=== PATIENT | female | born 1945 | race Caucasian/White ===

== ENCOUNTER 2018-08-11 09:29 | Outpatient (REF) | payer MEDICARE, MEDICAID, SELFPAY ==
[2018-08-11 13:17] LABS: ALT 41 U/L (12-78); AST 25 U/L (15-37); Albumin 3.9 g/dL (3.4-5.0); Alkaline Phosphatase 120 U/L (46-116); Anion Gap 9.6 mmol/L (3-11); BUN 31 mg/dL (7-18); Bilirubin, Total 0.2 mg/dL (0.2-1.0); CO2 27.4 mmol/L (21.0-32.0); CREATININE 1.13 mg/dL (0.55-1.02); Calcium 9.2 mg/dL (8.5-10.1); Chloride 103 mmol/L (98-107); Cholesterol 155 mg/dL (50-200); Estimated GFR 47.47 (mL/min/1.73m2); Glucose 72 mg/dL (70-100); HDL Cholesterol 52 mg/dL (40-60); LDL CHOLESTEROL 79 mg/dL (<100); Potassium 4.8 mmol/L (3.5-5.1); Sodium 140 mmol/L (136-145); TSH (W/Ref FT4) 0.73 uIU/mL (0.358-3.74); Total Protein 7.5 g/dL (6.4-8.2); Triglyceride 146 mg/dL (30-150)
[2018-08-11 13:43] LABS: Microalb ug/mg Crea 4.6 ug/mg Cr
== END 2018-08-11 09:49 ==
LOC: NCHCN 09:29
PROVIDERS: PCP Nurse Practitioner; Visit Provider Nurse Practitioner
DX: E11.9 Type 2 diabetes mellitus without complications (principal); I10 Essential (primary) hypertension; E78.5 Hyperlipidemia, unspecified; E03.9 Hypothyroidism, unspecified
CPT/HCPCS: 80053; 80061; 83721; 82043; 82570; 84443

== ENCOUNTER 2018-10-31 00:31 | Outpatient (CLI) | payer MEDICARE, MEDICAID, SELFPAY ==
--- NOTE | 2018-10-31 10:35 | DI.CTLCSR_ITS ---
SYMPTOM/DIAGNOSIS: Z87.891, PERSONAL H/O NICOTINE DEPENDENCE CHEST CT FOR LUNG CANCER SCREENING: Comparison is made with 05/23/15. The low dose screening protocol was utilized. There is mild centrilobular emphysema as well as paraseptal emphysema seen greatest in the upper lobes. There is scarring versus atelectasis at the lung bases. The heart size is normal. Coronary artery calcifications are seen. There are mild calcifications of the aorta. No pulmonary nodules, infiltrates or effusions are seen. No suspicious bony abnormalities are identified. The visualized portions of the upper abdomen are grossly unremarkable. IMPRESSION: Lung Rads, category 1. Annual low dose screening CT is recommended. Mild to moderate centrilobular and paraseptal emphysema is again noted. Lung-RAD Category: Lung RADS Category 1- Negative
== END 2018-10-31 00:51 ==
PROVIDERS: PCP Nurse Practitioner; Visit Provider Internal Medicine
DX: Z12.2 Encounter for screening for malignant neoplasm of respiratory organs (principal); Z87.891 Personal history of nicotine dependence; J43.9 Emphysema, unspecified
CPT/HCPCS: G0297

== ENCOUNTER 2019-03-24 11:37 | Outpatient (CLI) | payer OTHER, SELFPAY ==
--- NOTE | 2019-03-24 13:23 | DI.RAD_ITS ---
SYMPTOMS/DIAGNOSIS: RIGHT LEG PAIN, M79.604, S/P FALL DOWN 1 STEP 2 WEEKS AGO WITH SIGNIFICANT PAIN, SWELLING AND BRUISING, RIGHT LOWER EXTREMITY RIGHT TIB/FIB: No acute or healing fracture or dislocation is seen. No suspicious lytic or sclerotic lesion is present. There does appear to be edema in the soft tissues in the right lower leg. No radiopaque foreign bodies are seen in the soft tissues. Degenerative changes are seen about the knee. IMPRESSION: No acute or healing fracture or dislocation.
== END 2019-03-24 11:57 ==
PROVIDERS: PCP Nurse Practitioner; Visit Provider Nurse Practitioner
DX: M79.604 Pain in right leg (principal); R22.41 Localized swelling, mass and lump, right lower limb; M79.89 Other specified soft tissue disorders; W19.XXXA Unspecified fall, initial encounter
CPT/HCPCS: 73590

== ENCOUNTER 2019-03-31 11:44 | Outpatient (REF) | payer OTHER, MEDICAID, SELFPAY ==
[2019-03-31 19:36] LABS: ALT 27 U/L (12-78); AST 21 U/L (15-37); Albumin 3.7 g/dL (3.4-5.0); Alkaline Phosphatase 115 U/L (46-116); Anion Gap 9.7 mmol/L (3-11); BUN 32 mg/dL (7-18); Bilirubin, Total 0.3 mg/dL (0.2-1.0); CO2 25.3 mmol/L (21.0-32.0); CREATININE 1.14 mg/dL (0.55-1.02); Chloride 105 mmol/L (98-107); Cholesterol 175 mg/dL (50-200); Estimated GFR 46.85 (mL/min/1.73m2); Glucose 65 mg/dL (70-100); HDL Cholesterol 56 mg/dL (40-60); LDL CHOLESTEROL 96 mg/dL (<100); Potassium 5.2 mmol/L (3.5-5.1); Sodium 140 mmol/L (136-145); Total Protein 7.1 g/dL (6.4-8.2); Triglyceride 109 mg/dL (30-150)
== END 2019-03-31 12:04 ==
LOC: NCHCN 11:44
PROVIDERS: PCP Nurse Practitioner; Visit Provider Nurse Practitioner
DX: E03.9 Hypothyroidism, unspecified (principal); I10 Essential (primary) hypertension; E78.5 Hyperlipidemia, unspecified
CPT/HCPCS: 80053; 80061; 83721; 84443

== ENCOUNTER 2019-04-21 09:33 | Outpatient (REF) | payer OTHER, MEDICAID, SELFPAY ==
[2019-04-21 13:58] LABS: Potassium 4.7 mmol/L (3.5-5.1)
== END 2019-04-21 09:53 ==
LOC: NCHCN 09:33
PROVIDERS: PCP Nurse Practitioner; Visit Provider Nurse Practitioner
DX: N18.3 Chronic kidney disease, stage 3 (moderate) (principal)
CPT/HCPCS: 84132

== ENCOUNTER 2019-11-25 01:09 | Outpatient (CLI) | payer OTHER, MEDICAID, SELFPAY ==
--- NOTE | 2019-11-25 13:10 | DI.CTLCSR_ITS ---
EXAM: CT CHEST LUNG CANCER SCREEN CLINICAL HISTORY: PERSONAL H/O NICOTINE DEPENDENCE, Z87.891 TECHNIQUE: Low-dose screening technique. FINDINGS: No pulmonary nodules are identified. There is no adenopathy, pleural or pericardial effusions. The re is mild atelectasis versus scarring seen at the lung bases. Coronary artery calcifications and mi ld aortic calcifications are again noted. Visualized portions of the upper abdomen are unremarkable. IMPRESSION: Lung rads category 1, negative. Annual low-dose screening CT is recommended. Lung RADS Cat 1 - Negative: No nodules and definitely benign nodules
== END 2019-11-25 01:29 ==
PROVIDERS: PCP Nurse Practitioner; Visit Provider Internal Medicine
DX: Z12.2 Encounter for screening for malignant neoplasm of respiratory organs (principal); Z87.891 Personal history of nicotine dependence; R91.8 Other nonspecific abnormal finding of lung field
CPT/HCPCS: G0297

== ENCOUNTER 2020-05-10 12:39 | Outpatient (REF) | payer OTHER, MEDICAID, SELFPAY ==
[2020-05-10 16:13] LABS: Hemoglobin A1C 5.9 % (3.8-5.6)
[2020-05-10 16:44] LABS: ALT 25 U/L (14-59); AST 18 U/L (15-37); Albumin 3.6 g/dL (3.4-5.0); Alkaline Phosphatase 93 U/L (46-116); Anion Gap 15.9 mmol/L (3-11); BUN 36 mg/dL (7-18); Bilirubin, Total 0.3 mg/dL (0.2-1.0); CO2 19.1 mmol/L (21.0-32.0); CREATININE 1.59 mg/dL (0.55-1.02); Calculated LDL 122 mg/dL (<100); Chloride 106 mmol/L (98-107); Cholesterol 204 mg/dL (<200); Estimated GFR 31.83 (mL/min/1.73m2); Glucose 159 mg/dL (74-106); HDL Cholesterol 43 mg/dL (40-60); Potassium 4.4 mmol/L (3.5-5.1); Sodium 141 mmol/L (136-145); TSH (W/Ref FT4) 1.82 uIU/mL (0.36-3.74); Total Protein 7.2 g/dL (6.4-8.2); Triglyceride 198 mg/dL (<150)
== END 2020-05-10 12:59 ==
LOC: NCHCN 12:39
PROVIDERS: PCP Nurse Practitioner; Visit Provider Nurse Practitioner
DX: I10 Essential (primary) hypertension (principal); E78.5 Hyperlipidemia, unspecified; E03.9 Hypothyroidism, unspecified; N18.3 Chronic kidney disease, stage 3 (moderate); R73.09 Other abnormal glucose
CPT/HCPCS: 80053; 80061; 83036; 84443

== ENCOUNTER 2020-05-12 01:12 | Outpatient (CLI) | payer OTHER, MEDICAID, SELFPAY ==
--- NOTE | 2020-05-12 10:49 | DI.RAD_ITS ---
EXAM: XR KNEE RT 3V AP,LAT,ROSEANN CLINICAL HISTORY: RT KNEE JOINT PAIN > 3 MOS, M25.561 TECHNIQUE: COMPARISON: CR RIGHT KNEE 3 VIEWS from 03/04/2013 FINDINGS: Four views were obtained. There are probable multiple loose joint bodies. There is thinning of the cartilaginous joint spaces of medial and lateral tibiofemoral joints and probably of the patellofemor al joint as well. Very prominent marginal osteophytes noted at all 3 joints of the and there is very prominent superior marginal osteophyte of the patella. IMPRESSION: Severe degenerative changes involving all 3 joints of the knee, probable multiple loose joint bodies.
== END 2020-05-12 01:32 ==
PROVIDERS: PCP Nurse Practitioner; Visit Provider Nurse Practitioner
DX: M25.561 Pain in right knee (principal); M17.11 Unilateral primary osteoarthritis, right knee; M23.42 Loose body in knee, left knee
CPT/HCPCS: 73562

== ENCOUNTER → 2020-06-14 10:05 | Outpatient (BNVA) | payer OTHER, MEDICAID, SELFPAY | PROVIDERS: PCP Nurse Practitioner; Referring Provider Nurse Practitioner; Visit Provider Orthopaedic Surgery | DX: M17.11 Unilateral primary osteoarthritis, right knee (principal); M25.561 Pain in right knee | CPT/HCPCS: 99201 ==

== ENCOUNTER → 2020-07-26 09:08 | Outpatient (BNVA) | payer OTHER, MEDICAID, SELFPAY | PROVIDERS: PCP Nurse Practitioner; Referring Provider Nurse Practitioner; Visit Provider Orthopaedic Surgery | DX: M17.11 Unilateral primary osteoarthritis, right knee (principal) | CPT/HCPCS: 99213 ==

== ENCOUNTER 2020-08-31 11:04 | Outpatient (CLI) | payer OTHER, MEDICAID, SELFPAY ==
--- NOTE | 2020-08-31 14:09 | DI.RAD_ITS ---
EXAM: XR SHOULDER RT COMPLETE 2+V CLINICAL HISTORY: RT SHOULDER JT PAIN, M25.511, S/P CONTUSION 2 WEEKS AGO. TECHNIQUE: 2D digital imaging was performed. COMPARISON: No exams were available for comparison FINDINGS: BONES: No acute or healing fracture is present. No bony destructive lesion is seen. JOINTS: No dislocation present. Degenerative changes are seen at the acromioclavicular joint. SOFT TISSUE: Normal. IMPRESSION: No acute or healing fracture or dislocation. DATA REPOSITORY: RADIATION DOSE DELIVERED:
== END 2020-08-31 11:24 ==
PROVIDERS: PCP Nurse Practitioner; Visit Provider Physician Assistant
DX: M25.511 Pain in right shoulder (principal); M19.011 Primary osteoarthritis, right shoulder
CPT/HCPCS: 73030

== ENCOUNTER 2020-09-22 18:49 | Emergency (ER) | payer OTHER, MEDICAID, SELFPAY ==
[2020-09-22 18:51] VITALS: BP 139/90; PULSE 87; RESP 14; TEMP 36.6; O2SAT 94
--- NOTE | 2020-09-22 19:00 | ED.GENADUL_ITS ---
Discharge Plan Disposition Patient Disposition: HOME Condition: Stable Discharge Details Clinical Impression: Urinary tract infection Primary Care Provider: Kathleen Azevedo ED Provider: Roopa Delgado Home Meds and New Rx's Prescriptions: New sulfamethoxazole-trimethoprim [Bactrim DS] 800-160 mg tablet 1 tab PO BID 7 Days Qty: 14 RF: 0 Continued meloxicam 15 mg tablet 15 mg PO DAILY RF: 0 amlodipine 2.5 mg tablet 2.5 mg PO DAILY RF: 0 aspirin 81 mg tablet,delayed release (DR/EC) 81 mg PO DAILY RF: 0 levothyroxine 125 mcg tablet 125 mcg PO DAILY RF: 0 lisinopril 30 mg tablet 30 mg PO DAILY RF: 0 pravastatin 20 mg tablet 20 mg PO DAILY RF: 0 Trelegy Ellipta 100-62.5-25 mcg blister with device 1 inh INHALATION DAILY RF: 0 Discharge Instructions Instructions: Urinary Tract Infection in Women (ED), Nonpsychiatric Hallucinations (ED) Additional Instructions: Follow up with primary care provider in 3-5 days. Return to ED sooner if any worsening or concerns. Increase oral fluids. Try decreasing your Tylenol dose due to elevated liver enzymes. Take antibiotic as prescribed. Follow-up as instructed by [facility]. Return to the ER for any thoughts of harming yourself or others. Referrals: Kathleen Azevedo [Primary Care Provider] - Medical Decision Making 1909: Patient placed in paper scrubs, she is in line of sight of the nurses station, patient was allowed to keep her cell phone and wallet as requested. At this time medical work-up ordered including CBC, CMP, urinalysis nebulizer treatments and chest x-ray. Mental health evaluation ordered and care management Daniela aware of patient status at this time. Imaging protocol: XR of the chest Views: 2 views. COMPARISON: CT CHEST LUNG CANCER SCREEN 11/25/2019 13:07 FINDINGS: Lungs: Mild hyperinflation without airspace consolidation. No significant interstitial disease for the degree of inflation. Pleural space: No pleural effusion. No pneumothorax. Heart/Mediastinum: No cardiomegaly. Bones/joints: Degenerative changes in the spine. No displaced fracture. IMPRESSION: Mild hyperinflation without airspace consolidation. The 2019: Patient received a nebulizer at the time, ambulatory with assistance up to the bathroom for urine sample. Spoke with Beverly with [facility] services regarding patient and request for mental health evaluation, verbalized understanding . We will do a mental health eval via telehealth. 2121: Mental health evaluation is complete at this time per [facility] services patient is to be discharged home, they will call her and check up on patient tomorrow. Patient does have a friend that can also check on her, urinalysis shows positive nitrites and trace leukocytes, 10-20 WBCs, many bacteria culture is pending at this time. We will treat with Bactrim for possible urinary tract infection. Patient is allergic to penicillins, Liver enzymes are also elevated AST of 189, ALT 145, alk phos 185 patient states that she takes 2 regular strength Tylenol in the morning and 2 regular strength Tylenol in the evening for arthritis. Will discuss safe Tylenol dosages. Patient discharged home with [facility] for ride. Patient remained hemodynamically sta ble throughout stay. HPI General Mode of arrival: EMS . Date/Time Provider Initiated Documentation: 09/22/20 19:09 . Limitations to Documentation: no limitations . Information obtained by: patient and EMS . HPI Narrative: 75-year-old female presents to the ED via EMS with chief complaint of hearing voices. Patient states that she is heard a female voice calling her name over and over and over again since yesterday afternoon. She denies any suicidal ideation, homicidal ideation or any other complaints. She states that she does have a cold. She is having audible expiratory inspiratory wheezes upon arrival EMS states that they offered a neb which patient refused. She denies any recent changes in her medications any pain, nausea vomiting diarrhea or fever. She does have a history of COPD, hypertension, hypothyroid, patient is a current smoker. Related Data Home Medications Medication Instructions Recorded Confirmed Trelegy Ellipta 1 inh INHALATION DAILY 09/22/20 09/22/20 amlodipine 2.5 mg PO DAILY 09/22/20 09/22/20 aspirin 81 mg PO DAILY 09/22/20 09/22/20 levothyroxine 125 mcg PO DAILY 09/22/20 09/22/20 lisinopril 30 mg PO DAILY 09/22/20 09/22/20 meloxicam 15 mg PO DAILY 09/22/20 09/22/20 pravastatin 20 mg PO DAILY 09/22/20 09/22/20 sulfamethoxazole-trimethoprim 1 tab PO BID 7 Days #14 tab 09/22/20 [Bactrim DS] Previous Rx's Medication Instructions Recorded sulfamethoxazole-trimethoprim 1 tab PO BID 7 Days #14 tab 09/22/20 [Bactrim DS] Allergies Allergy/AdvReac Type Severity Reaction Status Date / Time Penicillins Allergy Intermediate Swelling/Ed Verified 07/26/20 09:12 demond Bees Allergy Uncoded 07/26/20 09:12 General Stated Complaint: PsychEval KAYA: 2 Review of Systems Narrative: Constitutional: Negative for weight loss, alert and oriented, well groomed, normal body habitus, appears comfortable. HEENT: Denies trauma, headaches, blurry vision, nasal discharge, sore throat, trouble swallowing. Chest: Denies chest pain, palpitations, irregular rhythm, hypertension. Respiratory: Denies Shortness of breath, hemoptysis. Reports cough with productive clear sputum. GI: Denies abdominal pain, nausea, vomiting, diarrhea, constipation. : Denies dysuria, hematuria, flank pain, rectal bleeding. Neuro: Denies dizziness, blurry vision, weakness, syncope, headache or facial numbness. Hematologic: Denies easy bruising, intolerance to heat or cold, hair loss. Psychiatric: Complaining of hearing voices repetitive, urinating, denies any suicidal ideation or homicidal ideation, [facility] Social History Smoking/Tobacco Use Status: Current every day Smoking risk assessment performed?: Yes Alcohol Intake: never Drug use: Never Substance use type: does not use Do you feel safe at home: Yes Exam Narrative Exam Narrative: Constitutional: Alert and oriented x3. Appears stated age. body habitus. Head: Normocephalic, no trauma. Eyes: Pupils PERRLA, Red reflex noted, EOM's intact. Eyelids symmetrical without lesions, discharge, or swelling. ENT: Bilateral TM's WNL, External ear normal to inspection, no mastoid TTP, swelling, or erythema, Nasal turbinates WNL, no nasal discharge. Normal dentition, Posterior pharynx WNL, no exudate. Chest: RRR, Normal S1, S2, distal pulses intact. Resp: Bilateral scattered inspiratory and expiratory wheezes throughout. Musculoskeletal: Normal gait, 5/5 strength to all four extremities. Skin: No suspicious rashes or lesions. Capillary refill less than 2 sec. Neurologic: Cranial nerves II-XII intact. Alert and oriented x 3. DTR's intact. Hematologic/Lymphatic: No ecchymosis, no lymphadenopathy. Psych Speech and Movement: speech and movement normal Affect: normal affect Attitude: cooperative Thought Process: normal Thought Content: hallucinations auditory (Female voice calling her name repeatedly), no homicidality and suicidality Course Vital Signs Vital signs: Vital Signs Temperature 36.6 C 09/22/20 18:51 Pulse 87 09/22/20 18:51 Respiratory Rate 14 09/22/20 18:51 Blood Pressure 139/90 09/22/20 18:51 Pulse Oximetry 94 09/22/20 18:51 Temperature 36.6 C 09/22/20 18:51 Temperature Source Skin 09/22/20 18:51 Pulse 87 09/22/20 18:51 Respiratory Rate 14 09/22/20 18:51 Respiratory Effort 09/22/20 18:56 Blood Pressure 139/90 09/22/20 18:51 Blood Pressure Position Sitting 09/22/20 18:51 Pulse Oximetry 94 09/22/20 18:51 Oxygen Delivery Method Room Air 09/22/20 18:51 Oxygen Flow Rate 0 09/22/20 18:51 Pain Level 0 09/22/20 18:51
--- NOTE | 2020-09-22 19:25 | DI.RAD_ITS ---
EXAM: XR CHEST 2V PA LATERAL CLINICAL HISTORY: Wheezing TECHNIQUE: 2D digital imaging was performed. COMPARISON: No exams were available for comparison FINDINGS: MEDIASTINUM: Normal. HEART: Normal. PULMONARY VASCULATURE: Normal. LUNGS: Clear. Mild hyperinflation of the lungs. PLEURAL SPACE: No pleural effusion or pneumothorax. BONE:Within normal limits for the patient's age. OTHER FINDINGS:Normal. IMPRESSION: Mild hyperinflation of the lungs. No focal consolidating infiltrates. DATA REPOSITORY: RADIATION DOSE DELIVERED:
--- NOTE | 2020-09-22 19:43 | DI.VRAD_ITS ---
PROCEDURE INFORMATION: Exam: XR Chest, 2 Views Exam date and time: 09/22/2020 18:58 Age: 75 years old Clinical indication: Wheezing TECHNIQUE: Imaging protocol: XR of the chest Views: 2 views. COMPARISON: CT CHEST LUNG CANCER SCREEN 11/25/2019 13:07 FINDINGS: Lungs: Mild hyperinflation without airspace consolidation. No significant interstitial disease for the degree of inflation. Pleural space: No pleural effusion. No pneumothorax. Heart/Mediastinum: No cardiomegaly. Bones/joints: Degenerative changes in the spine. No displaced fracture. IMPRESSION: Mild hyperinflation without airspace consolidation. The Dictated and Authenticated by: Bety Miguel MD. Ordering:FINN Blas MD
[2020-09-22 19:52] LABS: Abs Immature Grans 0.02 10^3/uL (0.0-0.06); Absolute Basophil Count 0.03 10^3/uL (0.0-0.2); Absolute Eosinophil Count 0.22 10^3/uL (0.0-0.7); Absolute Lymphocyte Count 2.33 10^3/uL (1.2-3.4); Absolute Monocyte Count 0.36 10^3/uL (0.1-0.8); Absolute Neutrophil Count 4.54 10^3/uL (1.2-6.7); Basophils % 0.4; Eosinophils % 2.9; HCT 37.4 % (36.0-46.0); HGB 12.1 g/dL (11.2-15.7); Immature Grans % 0.3; Lymphocytes % 31.1; MCH 31.1 pg (27.0-33.0); MCHC 32.4 % (32.0-36.0); MCV 96.1 fL (80-95); MPV 10.9 fL (8.0-11.0); Monocytes % 4.8; Neutrophils % 60.5; Nucleated RBC 0 %; Platelet Count 208 10^3/uL (130-400); RBC 3.89 10^6/uL (3.93-5.22); RDW 14.9 % (11.7-14.6); RDW-SD 53.1 fL
[2020-09-22 20:05] LABS: ALT 145 U/L (14-59); AST 189 U/L (15-37); Albumin 3.8 g/dL (3.4-5.0); Alkaline Phosphatase 185 U/L (46-116); Anion Gap 5.9 mmol/L (3-11); BUN 32 mg/dL (7-18); Bilirubin, Total 0.5 mg/dL (0.2-1.0); CO2 31.1 mmol/L (21.0-32.0); CREATININE 1.62 mg/dL (0.55-1.02); Calcium 9.4 mg/dL (8.5-10.1); Chloride 94 mmol/L (98-107); Estimated GFR 31.15 (mL/min/1.73m2); Glucose 117 mg/dL (74-106); Potassium 4.7 mmol/L (3.5-5.1); Sodium 131 mmol/L (136-145); Total Protein 7.6 g/dL (6.4-8.2)
[2020-09-22] MEDS: Albuterol/Ipratropium 3 ML UPD VIAL UPD (20:06)
[2020-09-22 20:53] LABS: Bilirubin Negative (Negative); Blood Negative (Negative); Clarity Clear (Clear); Glucose Negative (Negative); Ketones Negative (Negative); Leukocyte Esterase Trace (Negative); Nitrite Positive (Negative); Specific Gravity >= 1.030 (1.005-1.025); Urobilinogen 0.2 EU/dL (Up TO 0.2)
[2020-09-22 21:04] LABS: Bacteria Many HPF (Negative); Crystals Negative HPF (Negative); Epithelial Cells Many HPF (Negative); Mucus Negative (Negative); RBC 0-2 HPF (0-2)
[2020-09-22 21:05] LABS: Casts 0-2 Hyaline LPF (Negative)
--- NOTE | 2020-09-22 21:21 | PDOC.MHCN ---
Date of service: 09/22/20 Time of Service: 08:45 Mental Health Crisis Note Presenting Issue How did you arrive at the ED and why did you come: Patient arrived via ambulance to the ED. she was anxious because she had been hearing a voice say her name over and over and Dr. Delgado said she was requesting a mental health examination. She is also complaining that she has'nt slept for a few days. Precipitating Factors She is not Homicidal or Suicidal or having any thoughts of harming herself. She is oriented to time and place though she thought the month was August. She does not exhibit any signs of psychosis or delsuions She lives alone but says she has a close friend near by and she feels she is safe to go home. She is just concerned that she doesn't have a ride Disposition BEHAVIOR: She is calm and relaxed in the zoom interview EYE CONTACT: She is not able to adjust the screen so that this clinician can see her face but she seems to be looking at the screen and addressing her responses directly. MOOD: Her mood is fair to mildly depressed. AFFECT: Her affect is flat with some fluctuation. APPETITE: She reports good appetite and is hungry. SLEEP(trouble falling/staying asleep: her main complaint is that she can not sleep and methods recommended such as paying attention to breath and other relaxation tips were rejected. Plan Opening paperwork was initiated with this patient for [facility] She is amenable to having a clinician call her tomorrow to complete any necessary paperwork and to check in on her. She is comfortable going home this evening. She also agreed to call her PCP to discuss the onset of the voices and her inablility to sleep. Signature Clinician's Name/Title: Beverly Devine, [facility] Emergency Service Clinician
[2020-09-22] MEDS: Sulfameth/Trimeth DS TAB 1 TAB PO (21:41)
[2020-09-22 22:37] LABS: C & S Indicated? No/Sq. Contamination
== END 2020-09-22 21:45 | disposition home or self-care (01) ==
LOC: ER 21:37
PROVIDERS: Emergency Provider Registered Nurse Emergency; PCP Nurse Practitioner
DX: R44.0 Auditory hallucinations (principal); N39.0 Urinary tract infection, site not specified; R74.01 Elevation of levels of liver transaminase levels; J44.9 Chronic obstructive pulmonary disease, unspecified; F17.210 Nicotine dependence, cigarettes, uncomplicated; I10 Essential (primary) hypertension
CPT/HCPCS: 36415; 80053; 94640; 99284; 71046; 81003; 81015; 85025; J7620

== ENCOUNTER 2020-09-27 09:20 | Outpatient (REF) | payer OTHER, MEDICAID, SELFPAY ==
[2020-10-01 21:22] LABS: Patient Race White; SARS-CoV-2 RNA Undetected (Undetected); SARS-CoV-2 Specimen Source Nasal
== END 2020-09-27 09:40 ==
LOC: NCHCN 09:20
PROVIDERS: PCP Nurse Practitioner; Visit Provider Nurse Practitioner
DX: Z20.828 Contact with and (suspected) exposure to other viral communicable diseases (principal)
CPT/HCPCS: U0003

== ENCOUNTER 2020-10-04 05:54 | Inpatient (IN) | payer OTHER, MEDICAID, SELFPAY ==
[2020-10-04] VITALS (109 sets, daily range): BP systolic 84–143; BP diastolic 46–94; PULSE 66–97; RESP 4–27; TEMP 35.5–36.5; O2SAT 89–100
--- NOTE | 2020-10-04 05:30 | RT.EKG_ITS ---
APPROVED REPORT Exam: Resting ECG Patient Location: E HR:77 bpm ECG Measurements Heart Rate 77 AXIS CO 165 P 69 QRSd 95 QRS -58 QT 377 T 64 QTc 428 Conclusion Sinus rhythm...normal P axis, V-rate 60- 99 Left anterior fascicular block...axis(240,-40), init forces inf Low voltage, extremity and precordial leads...extremity<0.5mV, precordial<1.0mV
[2020-10-04] MEDS: methylPREDNISolone SUCC 125 MG VIAL IVP (05:40)
--- NOTE | 2020-10-04 06:01 | ED.GENADUL_ITS ---
Discharge Plan Disposition Patient Disposition: [facility] INPATIENT Condition: Fair Discharge Details Clinical Impression: Acute exacerbation of chronic obstructive pulmonary disease, Hyperkalemia, Hyponatremia, Acute kidney injury superimposed on chronic kidney disease, Elevated TSH Admit Date/Time: 10/04/20 09:28 Admit Provider: Yenny Schaffer Attending Provider: Yenny Schaffer Primary Care Provider: Kathleen Azevedo ED Provider: Tiff Gould Medical Decision Making <Matthew Trinh MD - Last Filed: 10/04/20 07:39> 75 yo female with hx of htn, copd, current smoker, who comes in with complaints of worsening shortness of breath since yesterday. She couldn't find her inhaler and called ems this morning. EMS noted diffuse wheezing so gave her a duoneb which patient states did helpl. She denies fevers or chest pain/pressure. She has a dry cough that she is unsure is unchanged from her daily smoker's cough. SHe has diffuse wheezing in all lung abebe on exam consistent with copd exacerbation, will tx with solumedrol and duoneb. Will obtain xray to evaluate for infiltrate. HAs no calf pain and no chest pain, no jvd, no significant tachycardia or hypoxia and exam is consistent with copd so doubt acs, chf or PE. labs delayed due to IV access difficulty she remains stable, I placed a 18G in the right AC under u/s guidance labs show gilbert with creatinine of 2.1 and potassium of 6.9. Will order calcium, insulin/dextrose, kayexalate. She was recently treated for uti and with the gilbert concern for possible obstructive cause of her gilbert/hyperkalemia, will obtain ct renal colic pt signed out to Dr. gould pending xray, ct results and reassessment after treatments Differential Diagnosis Differential Diagnosis: copd, pna, chf Medical Records Medical records reviewed: Yes I reviewed the patient's medical records. Lab Data Lab results reviewed: Yes I reviewed the patient's lab results. ECG Data Attestation: I personally reviewed and interpreted this ECG (s) as follows: Prior ECG tracings: not available for review Interpretation: sinus rhythm, rate of 77, pr 165, qtc 428 <Tiff Gould DO - Last Filed: 10/04/20 15:02> 0800 -- please see Dr. Trinh's note for initial presentation, exam and plan. Case endorsed to f/u on renal ct, cxr, and labs with plan for admission. Labs reviewed. WBC 11.4. Hgb 10.3. pH 7.28, pCO2 55 on VBG. Na 125, K 6.9, Cr 2.10, increased from recent 1.62. Trop negative. TSH 70.89. Free T4 0.21. Negative rapid influenza. Recent negative Covid on 09/27. CXR negative. Renal colic CT negative for acute findings. Pt reassessed and she is mainly c/o dizziness. She denies chest pain or sob. O2 sat 95% on RA. She is oriented x 3. She was recently treated with bactrim for a UTI in the ED and with additional antibiotics cold by her pcp. She states she has been taking all of her meds and not missed any doses. She lives alone and picks up her meds herself. She is noted to have on soiled hospital socks that appear old. She uses a cane for ambulation at home. She has audible wheezing heard in upper airways with wheezing throughout lung abebe so I suspect most likely copd exacerbation. Unable to obtain CT chest due to altered renal function and presentation less likely c/w PE. Dr. Trinh ordered treatment for hyperkalemia. Pharmacy recommended change to lokelma. Will add IV fluids. EKG notes a rate of 77, sinus, left anterior fascicular block but no acute ST-T wave ischemic changes. Case discussed with hospitalist who accepts patient for admission. Suspect the cause of her hyponatremia and hyperkalemia is recent treatment with Bactrim. Patient still makes urine. Will place a Louise catheter to monitor I's and O's. Medical Records Medical records reviewed: Yes I reviewed the patient's medical records. Imaging Data Radiologic Study: Radiologist's impression: CT RENAL COLIC WO CLINICAL HISTORY: hyperkalemia, gilbert, ?obstruction. TECHNIQUE: Imaging Protocol: Axial computed tomography images with coronal and sagittal reformatted images were created and reviewed. COMPARISON: No exams were available for comparison FINDINGS: The examination is limited due to patient motion artifact. ABDOMEN: Lung Bases: Scarring in the lung bases. Liver: Normal density. No measurable mass. The liver measures 20 cm in length. Gallbladder and biliary tract: Cholelithiasis. No biliary ductal dilatation. Pancreas: Fatty infiltration. No inflammatory process. Spleen: Normal. Kidneys: Normal size, contour and axis.No radiodense stones or obstructive uropathy. No masses seen. Adrenal glands: No mass is seen. Lymph nodes: Within normal limits. Abdominal Aorta: There is a 5 cm infrarenal abdominal aortic aneurysm. Atherosclerosis. PELVIS: Bladder:Symmetric distention, no gross wall thickening. Bowel: No obstruction or bowel wall thickening. No evidence of acute appendicitis. There is a large amount of stool in the colon. There is diverticulosis of the colon but no evidence of acute diverticulitis. Peritoneal cavity: No ascites, collection or mesenteric inflammatory response Reproductive organs: Within normal limits. Bones: Degenerative changes in the lumbar spine. Soft Tissues: Small fat containing bilateral inguinal hernia. IMPRESSION: 1. No evidence of bowel obstruction. 2. No evidence of nephrolithiasis or hydronephrosis. 3. Cholelithiasis. No biliary ductal dilatation. 4. Large amount of retained stool in the colon. 5. Colonic diverticulosis but no evidence of acute diverticulitis. 6. 5 cm infrarenal abdominal aortic aneurysm. 7. Findings were discussed with the emergency department on the date of the examination. ECG Data Attestation: I personally reviewed and interpreted this ECG (s) as follows: Interpretation: rate of 77, sinus, LAFB, no acute ST elevation or depression, AK 165, QRS 95, QTc 428. HPI <Matthew Trinh MD - Last Filed: 10/04/20 07:39> General Mode of arrival: EMS . Date/Time Provider Initiated Documentation: 10/04/20 05:59 . Limitations to Documentation: no limitations . Information obtained by: patient . History of Present Illness 75 year old F presents to the emergency department with the chief complaint of shortness of breath, described as moderate, and it has been constant. No relieving factors improve symptom(s), No exacerbating factors reported . Patient did receive the following treatments prior to arrival, other (duoneb with ems) Related Data Home Medications Medication Instructions Recorded Confirmed amlodipine 2.5 mg PO DAILY 09/22/20 10/04/20 aspirin 81 mg PO DAILY 09/22/20 10/04/20 levothyroxine 125 mcg PO DAILY 09/22/20 10/04/20 lisinopril 30 mg PO DAILY 09/22/20 10/04/20 pravastatin 20 mg PO DAILY 09/22/20 10/04/20 fluticasone propionate [Flovent 2 puff INHALATION BID 10/04/20 10/04/20 HFA] Allergies Allergy/AdvReac Type Severity Reaction Status Date / Time Penicillins Allergy Intermediate Swelling/Ed Verified 10/04/20 10:34 demond Bees Allergy Uncoded 10/04/20 10:34 General Stated Complaint: SOB KAYA: 3 Review of Systems <Matthew Trinh MD - Last Filed: 10/04/20 07:39> All systems reviewed & are unremarkable except as noted in HPI and below Constitutional Constitutional: Denies chills, Denies fever(s) and Denies weakness Cardiovascular Cardiovascular: Denies chest pain Gastrointestinal Gastrointestinal: Denies abdominal pain, Denies nausea and Denies vomiting Musculoskeletal Musculoskeletal: Denies joint swelling Neurologic Neurologic: Denies weakness PFSH <Matthew Trinh MD - Last Filed: 10/04/20 07:39> Medical History (Updated 10/04/20 @ 14:39 by Yenny Schaffer MD) CKD (chronic kidney disease) stage 3, GFR 30-59 ml/min COPD (chronic obstructive pulmonary disease) Hx of hyperlipidemia Hypothyroidism Non-insulin dependent diabetes mellitus Noncompliance with medication regimen Obesity Osteoarthritis of right knee Urinary tract infection Surgical History (Updated 10/04/20 @ 08:36 by Tiff Gould DO) History of bilateral tubal ligation History of hernia repair Family History (Updated 10/04/20 @ 14:03 by Yenny Schaffer MD) Father Diabetes Social History (Updated 10/04/20 @ 14:04 by Yenny Schaffer MD) Smoking/Tobacco Use Status: Current every day Tobacco Type: cigarettes Years smoked: 15 Tobacco: How many years used: 15 Counseling given: provider counseling and support medications Smoking risk assessment performed?: Yes Alcohol Intake: never Drug use: Never Substance use type: does not use Do you feel safe at home: Yes Do you feel safe in your relationship?: Yes Exam <Matthew Trinh MD - Last Filed: 10/04/20 07:39> Const General: no acute distress Orientation: alert HENMT Head: normal to inspection Ears: external ears normal General nose exam: external nose normal Mouth: moist mucous membranes Eyes General: appearance normal, both eyes and all related structures Neck Neck: normal visual inspection Resp Effort & Inspection: audible wheezes Cardio Rate: regular rate Skin General skin exam: no rashes or lesions noted Neuro General: patient alert and patient oriented x3 Extrem General: normal to inspection Psych Mental Status: mental status grossly normal Course <Matthew Trinh MD - Last Filed: 10/04/20 07:39> Vital Signs Vital signs: Vital Signs Temperature 36.0 C L 10/04/20 05:45 Pulse 79 10/04/20 05:45 Respiratory Rate 22 10/04/20 05:45 Blood Pressure 128/69 10/04/20 05:45 Temperature 36.0 C L 10/04/20 05:45 Temperature Source Temporal Artery Scan 10/04/20 05:45 Pulse 79 10/04/20 05:45 Respiratory Rate 21 10/04/20 05:54 Respiratory Effort 10/04/20 05:54 Respiratory Depth Normal 10/04/20 05:54 Blood Pressure 128/69 10/04/20 05:45 Blood Pressure Position Supine 10/04/20 05:45 Oxygen Delivery Method Nasal Cannula 10/04/20 05:45 Oxygen Flow Rate 2.5 10/04/20 05:45 Sign Out <Matthew Trinh MD - Last Filed: 10/04/20 07:39> Sign Out Data: Sign Out Comment: copd and ran out of inhaler and has wheezing on exam, stable vitals. potassium 6.9, follow up on renal colic ct, cxr results and reassesment after medications. Last updated by Matthew Trinh MD at 10/04/20 07:40
[2020-10-04] MEDS: Albuterol/Ipratropium 3 ML UPD VIAL UPD ×4 (06:31→17:56)
[2020-10-04 07:03] LABS: BE (Venous) -1 mmol/L (-2-3); HCO3 (Venous) 26 mmol/L (23-28); O2 Sat (Venous) 70 %; TCO2 (Venous) 24 mmol/L (24-29); pCO2 (Venous) 55 mmHg (41-51); pH (Venous) 7.28 (7.31-7.41); pO2 (Venous) 39 mmHg
[2020-10-04 07:04] LABS: Abs Immature Grans 0.05 10^3/uL (0.0-0.06); Absolute Lymphocyte Count 1.57 10^3/uL (1.2-3.4); Absolute Monocyte Count 0.23 10^3/uL (0.1-0.8); HCT 31.2 % (36.0-46.0); HGB 10.3 g/dL (11.2-15.7); Immature Grans % 0.4; Lymphocytes % 13.7; MCH 31.9 pg (27.0-33.0); MCV 96.6 fL (80-95); MPV 10.2 fL (8.0-11.0); Neutrophils % 83.9; Nucleated RBC 0 %; Platelet Count 223 10^3/uL (130-400); RBC 3.23 10^6/uL (3.93-5.22); RDW 14.7 % (11.7-14.6); RDW-SD 51.9 fL; WBC 11.44 10^3/uL (4.4-10.8)
--- NOTE | 2020-10-04 07:06 | DI.RAD_ITS ---
EXAM: XR PORTABLE CHEST AP CLINICAL HISTORY: shortness of breath TECHNIQUE: 2D digital imaging was performed. COMPARISON: No exams were available for comparison FINDINGS: MEDIASTINUM: Normal. HEART: Normal. PULMONARY VASCULATURE: Normal. LUNGS: Clear. PLEURAL SPACE: No pleural effusion or pneumothorax. BONE:Within normal limits for the patient's age. OTHER FINDINGS:Normal. IMPRESSION: No acute pulmonary findings. DATA REPOSITORY: RADIATION DOSE DELIVERED:
[2020-10-04 07:19] LABS: INR 0.9 (0.9-1.1); PTT Activated 25.4 sec (21.0-27.5); Prothrombin Time 9.5 sec (9.3-11.0)
[2020-10-04 07:28] LABS: ALT 55 U/L (14-59); AST 42 U/L (15-37); Albumin 3.9 g/dL (3.4-5.0); Alkaline Phosphatase 117 U/L (46-116); Anion Gap 5.1 mmol/L (3-11); BUN 50 mg/dL (7-18); Bilirubin, Total 0.3 mg/dL (0.2-1.0); CO2 24.9 mmol/L (21.0-32.0); Calcium 8.9 mg/dL (8.5-10.1); Chloride 95 mmol/L (98-107); Estimated GFR 23.09 (mL/min/1.73m2); Glucose 128 mg/dL (74-106); Magnesium 2.3 mg/dL (1.8-2.4); Sodium 125 mmol/L (136-145); TSH (W/Ref FT4) 70.89 uIU/mL (0.36-3.74); Total Protein 7.6 g/dL (6.4-8.2)
[2020-10-04 07:29] LABS: Troponin I < 0.05 ng/mL (<0.06)
[2020-10-04 07:30] LABS: Potassium 6.9 mmol/L (3.5-5.1)
[2020-10-04 07:48] LABS: FREE T4 0.21 ng/dL (0.76-1.46); NT-proBNP 87 pg/mL (<300)
--- NOTE | 2020-10-04 08:03 | DI.VRAD_ITS ---
PROCEDURE INFORMATION: Exam: XR Chest, 1 View Exam date and time: 10/04/2020 7:10 AM Age: 75 years old Clinical indication: Shortness of breath; Patient HX: SOB TECHNIQUE: Imaging protocol: XR of the chest Views: 1 view. COMPARISON: CR XR CHEST 2V PA LATERAL 09/22/2020 7:23 PM FINDINGS: Lungs: Unremarkable. No consolidation. Pleural space: Unremarkable. No pleural effusion. No pneumothorax. Heart/Mediastinum: The cardiomediastinal silhouette is stable in appearance allowing for differences in positioning. Bones/joints: Degenerative changes again involve the spine. IMPRESSION: No evidence for acute pulmonary disease. Dictated and Authenticated by: Matthew Koch MD. Ordering:KING Castro MD
--- NOTE | 2020-10-04 08:25 | DI.CT_ITS ---
EXAM: CT RENAL COLIC WO CLINICAL HISTORY: hyperkalemia, gilbert, ?obstruction. TECHNIQUE: Imaging Protocol: Axial computed tomography images with coronal and sagittal reformatted images were created and reviewed. COMPARISON: No exams were available for comparison FINDINGS: The examination is limited due to patient motion artifact. ABDOMEN: Lung Bases: Scarring in the lung bases. Liver: Normal density. No measurable mass. The liver measures 20 cm in length. Gallbladder and biliary tract: Cholelithiasis. No biliary ductal dilatation. Pancreas: Fatty infiltration. No inflammatory process. Spleen: Normal. Kidneys: Normal size, contour and axis.No radiodense stones or obstructive uropathy. No masses seen. Adrenal glands: No mass is seen. Lymph nodes: Within normal limits. Abdominal Aorta: There is a 5 cm infrarenal abdominal aortic aneurysm. Atherosclerosis. PELVIS: Bladder:Symmetric distention, no gross wall thickening. Bowel: No obstruction or bowel wall thickening. No evidence of acute appendicitis. There is a large amount of stool in the colon. There is diverticulosis of the colon but no evidence of acute divertic ulitis. Peritoneal cavity: No ascites, collection or mesenteric inflammatory response Reproductive organs: Within normal limits. Bones: Degenerative changes in the lumbar spine. Soft Tissues: Small fat containing bilateral inguinal hernia. IMPRESSION: 1. No evidence of bowel obstruction. 2. No evidence of nephrolithiasis or hydronephrosis. 3. Cholelithiasis. No biliary ductal dilatation. 4. Large amount of retained stool in the colon. 5. Colonic diverticulosis but no evidence of acute diverticulitis. 6. 5 cm infrarenal abdominal aortic aneurysm. 7. Findings were discussed with the emergency department on the date of the examination. RADIATION DOSE DELIVERED: 1,249.45mGy.cm Total DLP DATA REPOSITORY: All CT scans at this facility are submitted to the National Radiology Data Registry (NRDR) Dose Index Registry (DIR) with the [employer] ([employer]). RADIATION OPTIMIZATION: All CT scans at this facility use at least one of these dose optimization te chniques: automated exposure control; mA and/or kV adjustment per patient size (includes targeted exa ms where dose is matched to clinical indication); or iterative reconstruction.
[2020-10-04] MEDS: Sodium Zirconium Cyclosilicate 10 GM PKT PO ×3 (09:00→22:32)
[2020-10-04] MEDS: Normal Saline 50 ML 100 ML (09:00)
[2020-10-04] MEDS: Normal Saline 500 ML IV (09:00)
[2020-10-04] MEDS: Calcium Gluconate 4.65 MEQ/10 ML VIAL 4.65 MG IVP (09:00)
[2020-10-04] MEDS: Insulin REGULAR-Human 100 UNITS/ML UNIT 10 UNITS IV ×2 (09:15→17:57)
[2020-10-04] MEDS: Dextrose 50%-Water 25 GM/50 ML SYR IVP ×2 (09:15→17:56)
[2020-10-04 09:21] LABS: Troponin I < 0.05 ng/mL (<0.06)
[2020-10-04] MEDS: Normal Saline Flush 10 ML SYR IVP (09:46)
[2020-10-04 10:14] LABS: Bilirubin Negative (Negative); Blood Negative (Negative); Clarity Clear (Clear); Glucose Negative (Negative); Ketones Negative (Negative); Leukocyte Esterase Trace (Negative); Nitrite Negative (Negative); Specific Gravity 1.025 (1.005-1.025); Urobilinogen 0.2 EU/dL (Up TO 0.2); pH 5.5 (5-8)
[2020-10-04 10:24] LABS: Bacteria Rare HPF (Negative); C & S Indicated? Yes; Casts Negative LPF (Negative); Crystals Negative HPF (Negative); Epithelial Cells Few HPF (Negative); Mucus Negative (Negative); Other Cells Few Renal (Negative)
[2020-10-04 11:15] LABS: C-Reactive Protein 0.31 mg/dL (0.0-0.3); Creatine Kinase 417 U/L (26-192)
[2020-10-04 11:39] LABS: D-Dimer 2533 ng/mlFEU (<500); Ferritin 96 ng/mL (8-252)
[2020-10-04 11:45] LABS: Procalcitonin 0.1 ng/mL
[2020-10-04 12:27] LABS: Anion Gap 7.7 mmol/L (3-11); BUN 46 mg/dL (7-18); CO2 25.3 mmol/L (21.0-32.0); CREATININE 1.78 mg/dL (0.55-1.02); Calcium 9.5 mg/dL (8.5-10.1); Chloride 93 mmol/L (98-107); Estimated GFR 27.94 (mL/min/1.73m2); Glucose 124 mg/dL (74-106); Potassium 5.2 mmol/L (3.5-5.1); Sodium 126 mmol/L (136-145)
[2020-10-04] MEDS: Heparin 5,000 UNITS/ML VIAL 5000 UNITS SC ×2 (12:58→20:11)
[2020-10-04] MEDS: guaiFENesin 600 MG TABCR PO ×2 (12:58→20:10)
--- NOTE | 2020-10-04 13:42 | W.PM.HP.N ---
Date of service: 10/04/20 Time of Service: 13:42 Assessment and Plan Assessment and plan (1) Acute kidney injury superimposed on chronic kidney disease: Status: Acute Assessment and plan: Likely due to bactrim. Continue IVF, alvarez/monitoring I/Os, daily weights. Monitor lytes. (2) Hyperkalemia: Status: Acute Assessment and plan: Already improving. Continue lokelma. Ok to transfer out of ICU if K continues to trend down. Serial BMPs. Renal diet (3) Acute exacerbation of chronic obstructive pulmonary disease: Status: Acute Assessment and plan: Start antibiotics empirically - plan on using levofloxacin. Continue steroids, nebs, home asmanex - though consider staring symbicort. Encouraged smoking cessation. (4) Non-insulin dependent diabetes mellitus: Status: Acute Assessment and plan: Cover w/ SSI (5) Hyponatremia: Status: Acute Assessment and plan: In setting of undertreated hypothyroidism. Resume outpatient synthroid. Not in myxedema coma. For now, treat with NS. (6) DVT prophylaxis: Status: Acute Assessment and plan: SC heparin (7) Discharge planning issues: Status: Acute Assessment and plan: Full code History of Present Illness History of Present Illness Chief Complaint: Can I have a cigarette? Dizziness, shortness of breath Narrative: Ms Martínez is a 75 year old female with PMHx of non-oxygen dependent COPD with frequent exacerbations and ongoing tobacco abuse, as well as (per patient) h/o non-insulin dependent diabetes mellitus, CKD III with baseline Cr of 1.5-1.6, hypothyroidism, medication noncompliance, who presented to [facility] ED after feeling short of breath, especially so when laying down, and dizziness when trying to stand. She was diagnosed with a UTI by her PCP On 09/22/2020 (no culture is available) and initiated on bactrim, of which the patient states she is on day 5 of therapy (and to me denies taking antibiotics prior to this). In the ED, her w/u revealed a leucocytosis (11.44), acidosis with pH of 7.28 by VBG, Hyperkalemia with K of 6.9, GURINDER with Cr of 2.1. Her TSH was 70.89 - she admits to not taking her medications every day. Her sodium was 125. Her UA no longer has nitrites in it. The patient's shortness of breath has gotten worse over the last week. She denies exposure to covid-19, fevers, endorses runny nose, denies sore throat, denies chest pain, nausea, or diarrhea. She is coughing, and the sputum has been white, which is normal for her. In the ED, she was treated with IV steroids, nebs, lokelma, insulin and d50. Hospitalists were asked to take over care. The patient states that her main complaint today is that she wants a cigarette. She would like for me to let her smoke in the hospital. We discussed that this is impossible and that she shouldn't smoke. She smokes 5 cigarettes per day. She also feels cold. Nebulizer treatments help her shortness of breath. Review of Systems All systems reviewed & are unremarkable except as noted in HPI and below PFSH Medical History (Updated 10/04/20 @ 14:39 by Yenny Schaffer MD) CKD (chronic kidney disease) stage 3, GFR 30-59 ml/min COPD (chronic obstructive pulmonary disease) Hx of hyperlipidemia Hypothyroidism Non-insulin dependent diabetes mellitus Noncompliance with medication regimen Obesity Osteoarthritis of right knee Urinary tract infection Surgical History (Updated 10/04/20 @ 08:36 by Tiff Gould DO) History of bilateral tubal ligation History of hernia repair Family History (Updated 10/04/20 @ 14:03 by Yenny Schaffer MD) Father Diabetes Social History (Updated 10/04/20 @ 14:04 by Yenny Schaffer MD) Smoking/Tobacco Use Status: Current every day Tobacco Type: cigarettes Years smoked: 15 Tobacco: How many years used: 15 Counseling given: provider counseling and support medications Smoking risk assessment performed?: Yes Alcohol Intake: never Drug use: Never Substance use type: does not use Do you feel safe at home: Yes Do you feel safe in your relationship?: Yes Meds Home Medications and Allergies Home Medications Medication Instructions Recorded Confirmed Type amlodipine 2.5 mg PO DAILY 09/22/20 10/04/20 History aspirin 81 mg PO DAILY 09/22/20 10/04/20 History levothyroxine 125 mcg PO DAILY 09/22/20 10/04/20 History lisinopril 30 mg PO DAILY 09/22/20 10/04/20 History pravastatin 20 mg PO DAILY 09/22/20 10/04/20 History fluticasone propionate [Flovent 2 puff INHALATION BID 10/04/20 10/04/20 History HFA] Allergies Allergy/AdvReac Type Severity Reaction Status Date / Time Penicillins Allergy Intermediate Swelling/Ed Verified 10/04/20 10:34 demond Bees Allergy Uncoded 10/04/20 10:34 Exam Narrative Exam Narrative: General: Obese female, who is very cold to touch, pale, poor history provider and seems mostly concerned about getting a cigarette. Neurological: A&Ox3, no focal deficits Psychiatric: slightly anxious Skin: Pale, cool, dry skin; no rashes HEENT: Atraumatic, normocephalic, EOMI, dry MM, clear oropharynx, no submandibular or cervical lymphadenopathy, + goiter - wearing a neck gaitor, so I cannot examine her for JVD Cardiovascular: RRR, no m/r/g Lungs: Wheezing on expiration B, R>L Gastrointestinal: soft, nontender, nondistended Genitourinary: has a alvarez Extremities: trace edema BLE's, +1 pedal pulses, no c/c. Results Imaging Additional studies: CXR: No acute pulmonary findings. CT renal: 1. No evidence of bowel obstruction. 2. No evidence of nephrolithiasis or hydronephrosis. 3. Cholelithiasis. No biliary ductal dilatation. 4. Large amount of retained stool in the colon. 5. Colonic diverticulosis but no evidence of acute diverticulitis. 6. 5 cm infrarenal abdominal aortic aneurysm. Labs Result diagrams: 10/04/20 06:50 10/04/20 11:50 Labs: Laboratory Results - last 24 hr 10/04/20 10/04/20 10/04/20 06:50 06:50 06:50 WBC 11.44 H RBC 3.23 L Hgb 10.3 L Hct 31.2 L MCV 96.6 H MCH 31.9 MCHC 33.0 RDW 14.7 H Plt Count 223 MPV 10.2 Immature Gran % 0.4 Neutrophils % 83.9 Lymphocytes % 13.7 Monocytes % 2.0 Eosinophils % 0.0 Basophils % 0.0 Nucleated RBC % 0 Absolute Neutrophils 9.60 H Absolute Lymphocytes 1.57 Absolute Monocytes 0.23 Absolute Eosinophils 0.00 Absolute Basophils 0.00 PT 9.5 INR 0.9 APTT 25.4 D-Dimer VBG pH VBG pCO2 VBG pO2 VBG HCO3 VBG Total CO2 VBG O2 Saturation VBG Base Excess Sodium 125 L Potassium 6.9 H* Chloride 95 L Carbon Dioxide 24.9 Anion Gap 5.1 BUN 50 H Creatinine 2.10 H Estimated GFR/1.73 m2 23.09 Glucose 128 H Calcium 8.9 Magnesium 2.3 Ferritin Total Bilirubin 0.3 AST 42 H ALT 55 Alkaline Phosphatase 117 H Creatine Kinase Troponin I < 0.05 C-Reactive Protein NT-Pro-B Natriuret Pep 87 Total Protein 7.6 Albumin 3.9 Procalcitonin TSH 70.89 H Free T4 0.21 L Urine Color Urine Clarity Urine pH Ur Specific Mclean Urine Protein Urine Ketones Urine Blood Urine Nitrite Urine Bilirubin Urine Urobilinogen Ur Leukocyte Esterase Urine RBC Urine WBC Ur Epithelial Cells Urine Crystals Urine Bacteria Urine Casts Urine Mucus Urine Other Ur Culture Indicated? Urine Glucose 10/04/20 10/04/20 10/04/20 06:50 06:50 06:50 WBC RBC Hgb Hct MCV MCH MCHC RDW Plt Count MPV Immature Gran % Neutrophils % Lymphocytes % Monocytes % Eosinophils % Basophils % Nucleated RBC % Absolute Neutrophils Absolute Lymphocytes Absolute Monocytes Absolute Eosinophils Absolute Basophils PT INR APTT D-Dimer 2533 H VBG pH 7.28 L VBG pCO2 55 H VBG pO2 39 VBG HCO3 26 VBG Total CO2 24 VBG O2 Saturation 70 VBG Base Excess -1 Sodium Potassium Chloride Carbon Dioxide Anion Gap BUN Creatinine Estimated GFR/1.73 m2 Glucose Calcium Magnesium Ferritin 96 Total Bilirubin AST ALT Alkaline Phosphatase Creatine Kinase 417 H Troponin I C-Reactive Protein 0.31 H NT-Pro-B Natriuret Pep Total Protein Albumin Procalcitonin TSH Free T4 Urine Color Urine Clarity Urine pH Ur Specific Mclean Urine Protein Urine Ketones Urine Blood Urine Nitrite Urine Bilirubin Urine Urobilinogen Ur Leukocyte Esterase Urine RBC Urine WBC Ur Epithelial Cells Urine Crystals Urine Bacteria Urine Casts Urine Mucus Urine Other Ur Culture Indicated? Urine Glucose 10/04/20 10/04/20 10/04/20 06:50 08:52 10:00 WBC RBC Hgb Hct MCV MCH MCHC RDW Plt Count MPV Immature Gran % Neutrophils % Lymphocytes % Monocytes % Eosinophils % Basophils % Nucleated RBC % Absolute Neutrophils Absolute Lymphocytes Absolute Monocytes Absolute Eosinophils Absolute Basophils PT INR APTT D-Dimer VBG pH VBG pCO2 VBG pO2 VBG HCO3 VBG Total CO2 VBG O2 Saturation VBG Base Excess Sodium Potassium Chloride Carbon Dioxide Anion Gap BUN Creatinine Estimated GFR/1.73 m2 Glucose Calcium Magnesium Ferritin Total Bilirubin AST ALT Alkaline Phosphatase Creatine Kinase Troponin I < 0.05 C-Reactive Protein NT-Pro-B Natriuret Pep Total Protein Albumin Procalcitonin 0.1 TSH Free T4 Urine Color Yellow Urine Clarity Clear Urine pH 5.5 Ur Specific Mclean 1.025 Urine Protein Negative Urine Ketones Negative Urine Blood Negative Urine Nitrite Negative Urine Bilirubin Negative Urine Urobilinogen 0.2 Ur Leukocyte Esterase Trace H Urine RBC Urine WBC 10-20 H Ur Epithelial Cells Few Urine Crystals Negative Urine Bacteria Rare Urine Casts Negative Urine Mucus Negative Urine Other Few renal Ur Culture Indicated? Yes Urine Glucose Negative 10/04/20 11:50 WBC RBC Hgb Hct MCV MCH MCHC RDW Plt Count MPV Immature Gran % Neutrophils % Lymphocytes % Monocytes % Eosinophils % Basophils % Nucleated RBC % Absolute Neutrophils Absolute Lymphocytes Absolute Monocytes Absolute Eosinophils Absolute Basophils PT INR APTT D-Dimer VBG pH VBG pCO2 VBG pO2 VBG HCO3 VBG Total CO2 VBG O2 Saturation VBG Base Excess Sodium 126 L Potassium 5.2 H D Chloride 93 L Carbon Dioxide 25.3 Anion Gap 7.7 BUN 46 H Creatinine 1.78 H Estimated GFR/1.73 m2 27.94 Glucose 124 H Calcium 9.5 Magnesium Ferritin Total Bilirubin AST ALT Alkaline Phosphatase Creatine Kinase Troponin I C-Reactive Protein NT-Pro-B Natriuret Pep Total Protein Albumin Procalcitonin TSH Free T4 Urine Color Urine Clarity Urine pH Ur Specific Mclean Urine Protein Urine Ketones Urine Blood Urine Nitrite Urine Bilirubin Urine Urobilinogen Ur Leukocyte Esterase Urine RBC Urine WBC Ur Epithelial Cells Urine Crystals Urine Bacteria Urine Casts Urine Mucus Urine Other Ur Culture Indicated? Urine Glucose Last Vital Signs Temp 35.5 C L 10/04/20 11:05 Pulse 75 10/04/20 12:00 Resp 16 10/04/20 12:00 BP 117/65 10/04/20 11:06 Pulse Ox 96 10/04/20 12:00 COVID-19 Screening Have you, or household traveled for leisure in last 14 days?: No Had IN PERSON contact w/suspected or confirmed C-19 person: No
[2020-10-04] MEDS: methylPREDNISolone SUCC 125 MG VIAL 60 MG IVP ×2 (14:40→22:31)
[2020-10-04 15:05] LABS: COVID-19 RT-PCR UVMMC Result Negative (Negative)
[2020-10-04] MEDS: levoFLOXacin 750 MG/150 ML BAG 100 MG IVPB (15:20)
[2020-10-04 16:44] LABS: Anion Gap 6.4 mmol/L (3-11); BUN 42 mg/dL (7-18); CO2 25.6 mmol/L (21.0-32.0); CREATININE 1.96 mg/dL (0.55-1.02); Chloride 94 mmol/L (98-107); Glucose 157 mg/dL (74-106); Potassium 5.8 mmol/L (3.5-5.1); Sodium 126 mmol/L (136-145)
[2020-10-04] MEDS: Insulin Aspart 300 UNITS/3 ML PEN SC ×2 (17:17→22:17)
[2020-10-04] MEDS: Mometasone 220 MCG 14 DOSE INHALER IH (20:00)
[2020-10-05] VITALS (180 sets, daily range): BP systolic 94–150; BP diastolic 49–81; PULSE 37–119; RESP 4–29; TEMP 36–36.4; O2SAT 85–100
[2020-10-05] MEDS: Normal Saline 1,000 ML 125 ML IV ×2 (00:09→08:29)
[2020-10-05 00:39] LABS: Anion Gap 7.1 mmol/L (3-11); BUN 36 mg/dL (7-18); CO2 23.9 mmol/L (21.0-32.0); CREATININE 1.59 mg/dL (0.55-1.02); Calcium 8.7 mg/dL (8.5-10.1); Chloride 96 mmol/L (98-107); Estimated GFR 31.83 (mL/min/1.73m2); Glucose 105 mg/dL (74-106); Potassium 5.1 mmol/L (3.5-5.1); Sodium 127 mmol/L (136-145)
[2020-10-05] MEDS: Albuterol/Ipratropium 3 ML UPD VIAL UPD ×5 (00:45→23:22)
[2020-10-05] MEDS: methylPREDNISolone SUCC 125 MG VIAL 60 MG IVP ×3 (05:22→23:24)
[2020-10-05] MEDS: Levothyroxine 125 MCG TAB PO (05:24)
[2020-10-05] MEDS: Heparin 5,000 UNITS/ML VIAL 5000 UNITS SC ×3 (05:25→20:40)
[2020-10-05 07:10] LABS: Abs Immature Grans 0.08 10^3/uL (0.0-0.06); Absolute Basophil Count 0.01 10^3/uL (0.0-0.2); Absolute Lymphocyte Count 1.57 10^3/uL (1.2-3.4); Absolute Monocyte Count 0.26 10^3/uL (0.1-0.8); Absolute Neutrophil Count 11.63 10^3/uL (1.2-6.7); Basophils % 0.1; HCT 28.1 % (36.0-46.0); HGB 9.4 g/dL (11.2-15.7); Immature Grans % 0.6; Lymphocytes % 11.6; MCH 31.9 pg (27.0-33.0); MCHC 33.5 % (32.0-36.0); MCV 95.3 fL (80-95); MPV 10.4 fL (8.0-11.0); Monocytes % 1.9; Neutrophils % 85.8; Nucleated RBC 0 %; Platelet Count 228 10^3/uL (130-400); RBC 2.95 10^6/uL (3.93-5.22); RDW 14.6 % (11.7-14.6); RDW-SD 51.3 fL; WBC 13.55 10^3/uL (4.4-10.8)
[2020-10-05 07:42] LABS: ALT 46 U/L (14-59); AST 32 U/L (15-37); Albumin 3.3 g/dL (3.4-5.0); Alkaline Phosphatase 105 U/L (46-116); BUN 34 mg/dL (7-18); Bilirubin, Direct 0.08 mg/dL (0.00-0.20); Bilirubin, Total 0.3 mg/dL (0.2-1.0); C-Reactive Protein 0.12 mg/dL (0.0-0.3); CREATININE 1.55 mg/dL (0.55-1.02); Calcium 8.6 mg/dL (8.5-10.1); Chloride 97 mmol/L (98-107); Creatine Kinase 218 U/L (26-192); Estimated GFR 32.78 (mL/min/1.73m2); Glucose 143 mg/dL (74-106); Potassium 5.1 mmol/L (3.5-5.1); Sodium 129 mmol/L (136-145); TSH (W/Ref FT4) 64.93 uIU/mL (0.36-3.74); Total Protein 6.7 g/dL (6.4-8.2)
[2020-10-05] MEDS: Mometasone 220 MCG 14 DOSE INHALER IH ×2 (07:50→21:02)
--- NOTE | 2020-10-05 08:10 | W.PM.PROGNOT ---
Date of Service Date of service: 10/05/20 Time of Service: 12:21 Assessment and Plan Assessment and plan (1) Acute kidney injury superimposed on chronic kidney disease: Status: Acute Assessment and plan: Likely due to bactrim. Given large UOP, there is a question of whether the patient is entering ATN where she is not able to concentrate urine. Will decrease IVF rate given possible pulmonary edema by exam, continue to monitor I/Os, daily weights, UOP, lytes. Continue alvarez. (2) Hyperkalemia: Status: Acute Assessment and plan: Improving. Ok to transfer out of ICU. Continue lokelma. Continue Renal diet. Continue to hold chelsea-i. (3) Acute exacerbation of chronic obstructive pulmonary disease: Status: Acute Assessment and plan: Continue empiric levofloxacin. Continue steroids, nebs. Consider switch from asmanex to symbicort. Encouraged smoking cessation. (4) Non-insulin dependent diabetes mellitus: Status: Acute Assessment and plan: Cover w/ SSI (5) Hyponatremia: Status: Acute Assessment and plan: In setting of undertreated hypothyroidism/noncompliance with levothyroxine. Continue outpatient synthroid. Not in myxedema coma. Slow improvement with NS (6) DVT prophylaxis: Status: Acute Assessment and plan: SC heparin (7) Discharge planning issues: Status: Acute Assessment and plan: Full code Transfer out of ICU Subjective Subjective Interval history since last seen: MAJOR overnight. The patient states that she is dizzy when she stands up or sits up, by which she means that the room is spinning. She also states she feels winded. She denies chest pain, nausea, abdominal pain. She finished her lunch. No arrhythmais, no desaturations overnight. UOP: 3000 cc out/12hrs. Exam Narrative Exam Narrative: General: Obese female, sitting up in a chair, eating lunch, inattentive HEENT: EOMI, dry MM Cardiovascular: RRR, no m/r/g Lungs: expiratory wheezing bilaterally in addition to rales, which are new Gastrointestinal: soft, nontender, nondistended Genitourinary: has a alvarez Extremities: trace edema BLE's with wrinkles, +1 pedal pulses, no c/c. Objective Last Vital Signs Temp 36.3 C L 10/05/20 04:00 Pulse 78 11/18/20 05:01 Resp 17 10/05/20 06:30 BP 104/76 10/05/20 05:01 Pulse Ox 90 L 10/05/20 06:30 Laboratory Results - last 24 hr 10/04/20 10/04/20 10/04/20 06:30 06:50 06:50 WBC RBC Hgb Hct MCV MCH MCHC RDW Plt Count MPV Immature Gran % Neutrophils % Lymphocytes % Monocytes % Eosinophils % Basophils % Nucleated RBC % Absolute Neutrophils Absolute Lymphocytes Absolute Monocytes Absolute Eosinophils Absolute Basophils D-Dimer 2533 H Sodium Potassium Chloride Carbon Dioxide Anion Gap BUN Creatinine Estimated GFR/1.73 m2 Glucose Hemoglobin A1c Calcium Magnesium Ferritin 96 Total Bilirubin Conjugated Bilirubin AST ALT Alkaline Phosphatase Creatine Kinase 417 H Troponin I C-Reactive Protein 0.31 H Total Protein Albumin Procalcitonin TSH Urine Color Urine Clarity Urine pH Ur Specific [place] Urine Protein Urine Ketones Urine Blood Urine Nitrite Urine Bilirubin Urine Urobilinogen Ur Leukocyte Esterase Urine RBC Urine WBC Ur Epithelial Cells Urine Crystals Urine Bacteria Urine Casts Urine Mucus Urine Other Ur Culture Indicated? Urine Glucose COVID-19 PCR Negative Nasopharyn COVID-19 PCR Not Applicable [facility] 10/04/20 10/04/20 10/04/20 06:50 08:52 10:00 WBC RBC Hgb Hct MCV MCH MCHC RDW Plt Count MPV Immature Gran % Neutrophils % Lymphocytes % Monocytes % Eosinophils % Basophils % Nucleated RBC % Absolute Neutrophils Absolute Lymphocytes Absolute Monocytes Absolute Eosinophils Absolute Basophils D-Dimer Sodium Potassium Chloride Carbon Dioxide Anion Gap BUN Creatinine Estimated GFR/1.73 m2 Glucose Hemoglobin A1c Calcium Magnesium Ferritin Total Bilirubin Conjugated Bilirubin AST ALT Alkaline Phosphatase Creatine Kinase Troponin I < 0.05 C-Reactive Protein Total Protein Albumin Procalcitonin 0.1 TSH Urine Color Yellow Urine Clarity Clear Urine pH 5.5 Ur Specific [place] 1.025 Urine Protein Negative Urine Ketones Negative Urine Blood Negative Urine Nitrite Negative Urine Bilirubin Negative Urine Urobilinogen 0.2 Ur Leukocyte Esterase Trace H Urine RBC Urine WBC 10-20 H Ur Epithelial Cells Few Urine Crystals Negative Urine Bacteria Rare Urine Casts Negative Urine Mucus Negative Urine Other Few renal Ur Culture Indicated? Yes Urine Glucose Negative COVID-19 PCR Nasopharyn COVID-19 PCR Ref Test Perform Site 10/04/20 10/04/20 10/05/20 11:50 16:21 00:20 WBC RBC Hgb Hct MCV MCH MCHC RDW Plt Count MPV Immature Gran % Neutrophils % Lymphocytes % Monocytes % Eosinophils % Basophils % Nucleated RBC % Absolute Neutrophils Absolute Lymphocytes Absolute Monocytes Absolute Eosinophils Absolute Basophils D-Dimer Sodium 126 L 126 L 127 L Potassium 5.2 H D 5.8 H 5.1 Chloride 93 L 94 L 96 L Carbon Dioxide 25.3 25.6 23.9 Anion Gap 7.7 6.4 7.1 BUN 46 H 42 H 36 H Creatinine 1.78 H 1.96 H 1.59 H Estimated GFR/1.73 m2 27.94 25.00 31.83 Glucose 124 H 157 H 105 D Hemoglobin A1c Calcium 9.5 9.0 8.7 Magnesium Ferritin Total Bilirubin Conjugated Bilirubin AST ALT Alkaline Phosphatase Creatine Kinase Troponin I C-Reactive Protein Total Protein Albumin Procalcitonin TSH Urine Color Urine Clarity Urine pH Ur Specific [place] Urine Protein Urine Ketones Urine Blood Urine Nitrite Urine Bilirubin Urine Urobilinogen Ur Leukocyte Esterase Urine RBC Urine WBC Ur Epithelial Cells Urine Crystals Urine Bacteria Urine Casts Urine Mucus Urine Other Ur Culture Indicated? Urine Glucose COVID-19 PCR Nasopharyn COVID-19 PCR Ref Test Perform Site 10/05/20 10/05/20 10/05/20 06:30 06:30 06:30 WBC 13.55 H RBC 2.95 L Hgb 9.4 L Hct 28.1 L MCV 95.3 H MCH 31.9 MCHC 33.5 RDW 14.6 Plt Count 228 MPV 10.4 Immature Gran % 0.6 Neutrophils % 85.8 Lymphocytes % 11.6 Monocytes % 1.9 Eosinophils % 0.0 Basophils % 0.1 Nucleated RBC % 0 Absolute Neutrophils 11.63 H Absolute Lymphocytes 1.57 Absolute Monocytes 0.26 Absolute Eosinophils 0.00 Absolute Basophils 0.01 D-Dimer Sodium 129 L Potassium 5.1 Chloride 97 L Carbon Dioxide 23.0 Anion Gap 9.0 BUN 34 H Creatinine 1.55 H Estimated GFR/1.73 m2 32.78 Glucose 143 H Hemoglobin A1c 6.0 H Calcium 8.6 Magnesium 2.0 Ferritin Total Bilirubin 0.3 Conjugated Bilirubin 0.08 AST 32 ALT 46 Alkaline Phosphatase 105 Creatine Kinase 218 H Troponin I C-Reactive Protein 0.12 Total Protein 6.7 Albumin 3.3 L Procalcitonin TSH 64.93 H Urine Color Urine Clarity Urine pH Ur Specific [place] Urine Protein Urine Ketones Urine Blood Urine Nitrite Urine Bilirubin Urine Urobilinogen Ur Leukocyte Esterase Urine RBC Urine WBC Ur Epithelial Cells Urine Crystals Urine Bacteria Urine Casts Urine Mucus Urine Other Ur Culture Indicated? Urine Glucose COVID-19 PCR Nasopharyn COVID-19 PCR Ref Test Perform Site
--- NOTE | 2020-10-05 08:31 | INITIAL_ITS ---
- If Service Date Differs Date of service: 10/05/20 Time of Service: 08:32 Care Management Initial Assess REASON FOR HOSPITALIZATION:: GURINDER, SOB PAST MEDICAL HISTORY/PAST SURGICAL HISTORY:: Medical History (Updated 10/04/20 @ 14:39 by Yenny Schaffer MD). CKD (chronic kidney disease) stage 3, GFR 30-59 ml/min. COPD (chronic obstructive pulmonary disease). Hx of hyperlipidemia. Hypothyroidism. Non-insulin dependent diabetes mellitus. Noncompliance with medication regimen. Obesity. Osteoarthritis of right knee. Urinary tract infection. Surgical History (Updated 10/04/20 @ 08:36 by Tiff Gould DO). History of bilateral tubal ligation. History of hernia repair PREVIOUS FUNCTIONAL STATUS/SOCIAL/FAMILY SUPPORTS:: Fabiola lives alone in an apartment in [place]. She receives Meals on Wheels but no other home servic es. Fabiola has 3 sons but none are in the area. She also has one granddaughter. Fabiola stated that she has no close friends and that her oldest son is her closest suppport. CURRENT FUNCTIONAL STATUS:: CM was unable to meet with Fabiola in person as she is isolated as a PUI, however was able to connect via phone. Fabiola stated that she was feeling better. While she currently receives no services at home except for MOW, Fabiola stated that she would be open to accepting home health if warranted by day of discharge. ADVANCE DIRECTIVES:: none on file Has patient been provided with info about the portal/API?: Yes Did the patient sign up for the portal?: No (no computer) CODE STATUS:: Full Code INSURANCE COVERAGE / FINANCIAL ISSUES:: [facility] PPO CURRENT HOME/COMMUNITY SERVICES/EQUIPMENT:: MOW, uses a cane PRIMARY CARE PHYSICIAN:: Kathleen Azevedo POTENTIAL DISCHARGE NEEDS:: Follow up [facility] PCP and discharge plan of care PATIENT/FAMILY EDUCATION NEEDS:: Discharge plan, limitations, follow up plan, Ask Me Three TRANSPORTATION:: via private vehicle with friend/family PLAN:: Fabiola will likely be discharged home with a resumption of Meals on Wheels. She may need new home health services, depending on the course of her illness. CM will continue to follow and support Fabioal with her discharge planning needs.
[2020-10-05] MEDS: guaiFENesin 600 MG TABCR PO ×2 (08:34→20:38)
[2020-10-05] MEDS: Insulin Aspart 300 UNITS/3 ML PEN SC ×3 (08:34→23:27)
[2020-10-05] MEDS: Aspirin E.C. 81 MG TABEC PO (08:34)
--- NOTE | 2020-10-05 09:05 | IN_ITS ---
Date of service: 10/05/20 Time of Service: 09:05 PT Notes Visit Reasons: GURINDER, HYPERKALEMIA, COPD EXACERBATION, PUI Physical Therapy Inpatient Initial Evaluation Date: 10/05/2020 Referring Doctor: Yenny Schaffer MD PT Orders: PT CONSULT: Limited ability Precautions: Fall. Standard. Activity as tolerated. Patient Profile/Admitting Diagnosis: I have is a 75-year-old female who presented to the ED on 10/04/2020 with chief complaints of worsening shortness of breath and dizziness. Patient is diagnosed with acute kidney injury superimposed on chronic kidney disease, hyperkalemia, COPD exacerbation, NIDDM and hyponatremia. PMHX: Medical History (Updated 10/04/20 @ 14:39 by Yenny Schaffer MD) CKD (chronic kidney disease) stage 3, GFR 30-59 ml/min COPD (chronic obstructive pulmonary disease) Hx of hyperlipidemia Hypothyroidism Non-insulin dependent diabetes mellitus Noncompliance with medication regimen Obesity Osteoarthritis of right knee Urinary tract infection Surgical History (Updated 10/04/20 @ 08:36 by Tiff Gould DO) History of bilateral tubal ligation History of hernia repair Social History/Home Situation: I have a lives alone in an apartment with no steps to enter. All mobility ADL performance using the single-point cane. She rides [employer] bus grocery shopping. She receives Meals on Wheels. Equipment Owned/DME: Single-point cane Subjective: I know how much I am not able to do today because of arthritis and pain. Denies headache, chest pain, and dizziness during mobility assessment. Objective: General Observation: Telemetry monitoring in place. Nurse Holly assisted with ambulation activity for safety. Mental Status: Alert and oriented x4 Pain: 5/10 pain in bilateral knees with the right more affected than the left ROM: Right Upper Extremity: Shoulder Flexion WFL. Shoulder abduction WFL. Elbow flexion WFL. Wrist flexion WFL. Opening and closing of hand WFL. Left Upper Extremity: Shoulder Flexion WFL. Shoulder abduction WFL. Elbow flexion WFL. Wrist flexion WFL. Opening and closing of hand WFL. Right Lower Extremity: Hip flexion allows 90 degrees only. Hip abduction WFL. Knee flexion WFL. Ankle dorsiflexion WFL. Ankle plantarflexion WFL. Left Lower Extremity: Hip flexion allows 90 degrees only. Hip abduction WFL. Knee flexion WFL. Ankle dorsiflexion WFL. Ankle plantarflexion WFL.. Hip abduction WFL. Knee flexion WFL. Ankle dorsiflexion WFL. Ankle plantarflexion WFL. Strength: Right Upper Extremity: Shoulder flexors 4-/5. Shoulder abductors 4-/5. Elbow flexors 4-/5. Elbow extensors 4/5. Obgyn Nurse strong. Left Upper Extremity: Shoulder flexors 4-/5. Shoulder abductors 4-/5. Elbow flexors 4-/5. Elbow extensors 4/5. Obgyn Nurse strong. Right Lower Extremity: Hip flexors 3-/5. Hip abductors 4-/5. Knee flexors 4-/5. Knee extensors 4-/5. Ankle dorsiflexors 4/5. Ankle plantarflexors 4/5. Left Lower Extremity: Hip flexors 3-/5. Hip abductors 4-/5. Knee flexors 4-/5. Knee extensors 4-/5. Ankle dorsiflexors 4/5. Ankle plantarflexors 4/5. Sensation: Intact as to pain and pressure on bilateral lower extremities. Bed Mobility/Transfers: Rolling contact-guard assist Supine to sit contact-guard assist with HOB 45 degrees Sit to supine contact-guard assist Sit to stand contact-guard assist Stand to sit contact-guard assist Bed to chair contact-guard assist Chair to bed contact-guard assist Gait: I have a tolerated 40 feet of short distance ambulation utilizing the front wheeled walker with full weightbearing and contact-guard assist from PT and standby assist as well as IV pole management by nurse Barrera for safety. Decreased abraham and mild shortness of breath observed during activity. Reported pain in bilateral knees at 5/10 with right more affected more than the left. Balance: Static Sitting: Normal Dynamic Sitting: Normal Static Standing: Fair Dynamic Standing: Fair Special Tests: Mobility Limitations Standardized Measure [facility] 6 clicks Basic Mobility Inpatient Short Form: Raw Score: 18 CMS Score: 47% deficit Informed Consent/Education: Patient instructed in purpose of PT consult and plan of care. Assessment: Fabiola demonstrates significant functional mobility decline requiring the use of a front wheeled walker for all mobility ADL performance, decreased activity tolerance, difficulty with walking, and increased risk for falls due to admitting diagnoses. Patient presents with clinical signs and symptoms consistent with current/admitting diagnoses that have resulted to mobility limitations, gait instability, generalized weakness, and impairment of motor control as demons trated by the following impairment level findings: 1. Decreased strength to B LE major muscle groups 2. Impaired standing balance 3. Impaired activity tolerance Impairments are contributing to the following functional limitations: 1. Dependent bed mobility skills 2. Increased dependence with transfers 3. Inability to safely ambulate without assistive device and physical assistance 4. Increase completion time for mobility ADL performance 5. Increased fall risk 6. Inability to negotiate steps alone safely Patient is assessed as a 16519 moderate complexity based on the following: History: 75-year-old contact-guard assist with impairment level findings, functional limitations, and past medical history as indicated above Examination: Demonstrable impairment in strength, balance, and mobility level with underlying impairments and functional limitations as documented above Presentation:Evolving Decision Makin moderate complexity Goals: Goals X1 week 1. Supine-Sit independent 2. Sit-Supine independent 3. Sit-Stand independent 4. Stand-Sit independent 5. Bed-Chair independent 6. Chair-Bed independent 7. Independent gait on level surface with use of single-point cane for at least 300 feet without report of pain nor dyspnea 8. Independent stair negotiation while holding onto bilateral rails for at least 3 steps without report of pain nor dyspnea 9. Independent with home exercise program 10. Good static and dynamic standing balance/tolerance Plan of Care/Treatment Plan: 1-2x/day, 7 days/week x 1 week. Plan of care has been reviewed with the MR TEACHER providing the service under Physical Therapy direction. Initiate Physical Therapy intervention for strengthening, bed mobility, transfers, gait, stairs, balance training, use of assistive device. DISCHARGE RECOMMENDATIONS: Patient will benefit from home health PT services in order to progress mobility level using single-point cane, assess home safety, identify additional equipment needs, and establish a functional maintenance program that will increase ability of patient to remain at home. TREATMENT CODE/TIME: 16891, 06410 x 34 minutes beginning at 9:05 AM. Thank you for the opportunity to participate in the care of this patient. Ting Posada PT, DPT, CLT [facility] [place], [place]
[2020-10-05] MEDS: Sodium Zirconium Cyclosilicate 10 GM PKT PO ×3 (10:58→23:23)
--- NOTE | 2020-10-05 13:00 | DI.RAD_ITS ---
EXAM: XR PORTABLE CHEST AP CLINICAL HISTORY: concern for CHF TECHNIQUE: 2D digital imaging was performed. COMPARISON: CR,XR XR PORTABLE CHEST AP from 10/04/2020 FINDINGS: MEDIASTINUM: Normal. HEART: Normal. PULMONARY VASCULATURE: There is poor inspiration with crowding of the pulmonary vasculature. LUNGS: Clear. PLEURAL SPACE: No pleural effusion or pneumothorax. BONE:Within normal limits for the patient's age. OTHER FINDINGS:Normal. IMPRESSION: No acute pulmonary findings. No findings to suggest congestive heart failure. DATA REPOSITORY: RADIATION DOSE DELIVERED:
--- NOTE | 2020-10-05 15:42 | NUR.NOTE ---
Nursing Note: At 1430 on 10/05/20, this RN received report on this pt. from Sarika Mac RN in the ICU. At 1443 on 10/05/20, pt. was transferred from the ICU to Med/Surg per MD order. Pt. was oriented and settled in to room 229. VS were obtained; VSS; see flowsheet for more information. Pt. complaining of moderate headache pain. Pt. to be medicated at the next available time per the MAR. Shift assessment performed; see flowsheet for more information. RN will reassess as necessary.
[2020-10-05] MEDS: Acetaminophen 325 MG TAB PO ×2 (15:54→23:26)
--- NOTE | 2020-10-05 15:54 | PT.INTREAT ---
Date of service: 10/05/20 Time of Service: 15:00 PT Notes Visit Reasons: GURINDER, HYPERKALEMIA, COPD EXACERBATION, PUI Inpatient Physical Therapy Treatment Note [facility] Date: 10/05/2020 PRECAUTIONS: Fall SUBJECTIVE: [place] requires some convincing, although is eventually agreeable to participating in PT. OBJECTIVE: PAIN: Patient c/o R knee pain with ther ex BED MOBILITY/TRANSFERS Supine-sit: S with HOB at 40 degrees Sit-supine: S with HOB flat Sit-stand: S Stand-sit: S GAIT Assistive Device: FWW Weight bearing: Full Assist: SBA Distance: 40' Deviation: Mild SOB THEREX: Patient was instructed in a LE strengthening and stabilization program, in a supine position, as per flow sheet. ASSESSMENT: Patient would benefit from continued global strengthening and gait training, as well as the addition of stair training for improved mobility and continued progression towards baseline level of function. PLAN: Continue with gait training with least restrictive device TREATMENT CODE/TIME: 15 minutes; [id number]
--- NOTE | 2020-10-05 16:29 | CHAPLAIN ---
I visited Fabiola when she was in the ICU this morning. I introduced myself and explained my role. Fabiola was pleasant but was not interested in further conversation.
[2020-10-05] MEDS: Normal Saline 1,000 ML 75 ML IV (20:35)
[2020-10-05] MEDS: Normal Saline Flush 10 ML SYR IVP (23:25)
[2020-10-06] VITALS (10 sets, daily range): BP systolic 111–157; BP diastolic 69–83; PULSE 75–95; RESP 3–20; TEMP 36–36.8; O2SAT 91–99
[2020-10-06] MEDS: methylPREDNISolone SUCC 125 MG VIAL 60 MG IVP ×3 (06:32→21:53)
[2020-10-06] MEDS: Normal Saline Flush 10 ML SYR IVP ×3 (06:37→21:53)
[2020-10-06 06:52] LABS: Absolute Lymphocyte Count 1.49 10^3/uL (1.2-3.4); HCT 28.9 % (36.0-46.0); HGB 9.6 g/dL (11.2-15.7); Immature Grans % 0.7; MCHC 33.2 % (32.0-36.0); MCV 96.3 fL (80-95); MPV 10.3 fL (8.0-11.0); Monocytes % 2.1; Neutrophils % 86.2; Nucleated RBC 0 %; Platelet Count 228 10^3/uL (130-400); RDW 14.8 % (11.7-14.6); RDW-SD 52.3 fL; WBC 13.52 10^3/uL (4.4-10.8)
[2020-10-06 06:57] LABS: Absolute Monocyte Count 0.28 10^3/uL (0.1-0.8); Absolute Neutrophil Count 11.65 10^3/uL (1.2-6.7)
[2020-10-06 06:58] LABS: Anion Gap 10.1 mmol/L (3-11); BUN 26 mg/dL (7-18); CO2 24.9 mmol/L (21.0-32.0); CREATININE 1.43 mg/dL (0.55-1.02); Calcium 8.3 mg/dL (8.5-10.1); Chloride 99 mmol/L (98-107); Estimated GFR 35.97 (mL/min/1.73m2); Glucose 143 mg/dL (74-106); Potassium 4.6 mmol/L (3.5-5.1); Sodium 134 mmol/L (136-145)
[2020-10-06] MEDS: Mometasone 220 MCG 14 DOSE INHALER IH ×2 (08:02→20:00)
[2020-10-06] MEDS: Insulin Aspart 300 UNITS/3 ML PEN SC ×2 (08:26→12:28)
[2020-10-06] MEDS: guaiFENesin 600 MG TABCR PO ×2 (08:26→20:00)
[2020-10-06] MEDS: Aspirin E.C. 81 MG TABEC PO (08:31)
[2020-10-06] MEDS: Levothyroxine 125 MCG TAB PO (08:46)
--- NOTE | 2020-10-06 09:36 | PDOC.CMPRO ---
Care Management Progress Note S/O: Fabiola continues to be closely monitored post surgically. PT notes that Fabiola requires some encouragement to engage in services and reports not mobilizing a great deal at baseline. Fabiola expressed discomfort and pain she attributed to gas I can't bring up, she was sipping diet gingerale and started to weep stating lord help me. CM comforted Fabiola, and notifed MD of patient presentation. CM continues to follow. A: 75 year old female admitted to [facility] 10/04/20 with GURINDER, Hyperkalemia, COPD exacerbation, PUI P: Fabiola will return home where she resides alone in [facility]. MOW to resume upon discharge. She will continue to work with PT and begin stair training as well. Anticipate she will return home; undetermined if additional services will be recommended at this time; CM continues to follow.
[2020-10-06] MEDS: Sodium Zirconium Cyclosilicate 10 GM PKT PO (11:23)
[2020-10-06] MEDS: Heparin 5,000 UNITS/ML VIAL 5000 UNITS SC ×2 (11:23→20:00)
--- NOTE | 2020-10-06 12:06 | W.NUTRFU ---
Date of service: 10/06/20 Time of Service: 12:06 Nutritional Follow up NOTE: 75 year old female admitted with CKD, hyperkalemia with Hx of NIDDM and COPD. BMI indicates morbid obesity. Following renal/ carb controlled diet. Recent (10/05/20) A1C: 6.0% indicating adequate glycemic control. Does not appear at nutritional risk. Will continue to follow. Time Spent in Nutritional Counseling and Treatment: 0
--- NOTE | 2020-10-06 12:48 | PT.INTREAT ---
Date of service: 10/06/20 Time of Service: 09:55 PT Notes Visit Reasons: GURINDER, HYPERKALEMIA, COPD EXACERBATION, PUI Inpatient Physical Therapy Treatment Note [facility] Date: 10/06/2020 PRECAUTIONS: Fall SUBJECTIVE: Fabiola is reluctant, but eventually agreeable to participating in PT. She states I just want to sit in my chair. She reports that she does not walk much at home, and that she does get mildly SOB with activity at home. OBJECTIVE: PAIN: Patient complained of R knee discomfort with ther ex completion BED MOBILITY/TRANSFERS Supine-sit: I with HOB at 50 degrees Sit-stand: S Stand-sit: S GAIT Assistive Device: FWW Weight bearing: Full Assist: SBA Distance: 80' Deviation: Increased SOB, c/o lightheadedness THEREX: Patient was instructed in several LE strengthening exercises, in a seated position, as per flow sheet. Patient complains of R knee pain with ther ex completion and demonstrates limited mobility, due to pain, with ther ex completion. ASSESSMENT: Patient tolerated a slight progression in gait distance with FWW support, demonstrating increased SOB and c/o lightheadedness. She would benefit from continued gait training and global strengthening for improved mobility. PLAN: Continue with gait training and global strengthening TREATMENT CODE/TIME: 15 minutes; [id number]
[2020-10-06] MEDS: Albuterol/Ipratropium 3 ML UPD VIAL UPD ×3 (13:05→23:30)
[2020-10-06] MEDS: levoFLOXacin 750 MG/150 ML BAG 100 MG IVPB (14:13)
[2020-10-06] MEDS: Mylanta Suspension 30 ML CUP PO (15:25)
--- NOTE | 2020-10-06 15:30 | PT.INNT ---
Date of service: 10/06/20 Time of Service: 15:15 PT Notes Visit Reasons: GURINDER, HYPERKALEMIA, COPD EXACERBATION, PUI 10/06/2020 Patient refused PT servcies stating that she was having significant gas pains and I know walking won't help. Patient requests that I discuss her discomfort with her nurse. Nurse aware. Will attempt to resume PT services tomorrow morning.
--- NOTE | 2020-10-06 16:00 | RT.EKG_ITS ---
APPROVED REPORT Exam: Resting ECG Patient Location: I HR:81 bpm ECG Measurements Heart Rate 81 AXIS NC 152 P 77 QRSd 91 QRS 8 QT 356 T 64 QTc 413 Conclusion Sinus rhythm...normal P axis, V-rate 60- 99 Low voltage, extremity and precordial leads...extremity<0.5mV, precordial<1.0mV
--- NOTE | 2020-10-06 16:13 | W.PM.PROGNOT ---
Date of Service Date of service: 10/06/20 Time of Service: 16:13 Assessment and Plan Assessment and plan (1) Chest pain: Status: Acute Assessment and plan: I believe this is due to GERD as the patient is on steroids, but we are ruling out cardiac etiology as well. EKG, troponin ordered. SL nitroglycerin also ordered. On PPI. Also writing for tums. (2) Acute kidney injury superimposed on chronic kidney disease: Status: Acute Assessment and plan: Likely due to bactrim. Improved. D/c IVF and assess for ability to concentrate urine. Continue monitoring Cr, I/Os, daily weights. (3) Hyperkalemia: Status: Resolved Assessment and plan: Resolved with IVF and lokelma. Continue Renal diet for tonight. Continue to hold chelsea-i. (4) Acute exacerbation of chronic obstructive pulmonary disease: Status: Acute Assessment and plan: Continue empiric levofloxacin. Continue steroids, nebs. Start to decrease steroids tomorrow. Consider switch from asmanex to symbicort if cardiac workup negative. Encouraged smoking cessation. (5) Non-insulin dependent diabetes mellitus: Status: Acute Assessment and plan: Cover w/ SSI (6) Hyponatremia: Status: Acute Assessment and plan: In setting of undertreated hypothyroidism/noncompliance with levothyroxine. Continue outpatient synthroid. Not in myxedema coma. Better. (7) DVT prophylaxis: Status: Acute Assessment and plan: SC heparin (8) Discharge planning issues: Status: Acute Assessment and plan: Full code Continues to require hospitalization. Subjective Subjective Interval history since last seen: Ms Martínez c/o chest pain. The pain feels like an elephant sitting on the chest, but also feels like gas and is reproducible with palpation. The pain did not go away with maalox. She has not had pain this bad before. Denies dizziness, endorses shortness of breath and wheezing, denies nausea. Last BM earlier today - hard. Exam Narrative Exam Narrative: General: Obese female, sitting up in bed with a blue bag, visibly uncomfortable HEENT: EOMI, MMM Cardiovascular: RRR, no m/r/g Lungs: expiratory wheezing bilaterally, worse today Gastrointestinal: soft, nontender, nondistended Genitourinary: has a alvarez Extremities: trace edema BLE's with wrinkles, +1 pedal pulses, no c/c. Objective Last Vital Signs Temp 36 C L 10/06/20 15:36 Pulse 84 10/06/20 15:36 Resp 18 10/06/20 15:36 BP 157/80 H 10/06/20 15:36 Pulse Ox 94 10/06/20 15:36 Laboratory Results - last 24 hr 10/06/20 10/06/20 06:15 06:15 WBC 13.52 H RBC 3.00 L Hgb 9.6 L Hct 28.9 L MCV 96.3 H MCH 32.0 MCHC 33.2 RDW 14.8 H Plt Count 228 MPV 10.3 Immature Gran % 0.7 Neutrophils % 86.2 Lymphocytes % 11.0 Monocytes % 2.1 Eosinophils % 0.0 Basophils % 0.0 Nucleated RBC % 0 Absolute Neutrophils 11.65 H Absolute Lymphocytes 1.49 Absolute Monocytes 0.28 Absolute Eosinophils 0.00 Absolute Basophils 0.00 Sodium 134 L Potassium 4.6 Chloride 99 Carbon Dioxide 24.9 Anion Gap 10.1 BUN 26 H Creatinine 1.43 H Estimated GFR/1.73 m2 35.97 Glucose 143 H Calcium 8.3 L Magnesium 2.0 Objective Narrative Objective Narrative: EKG: pending CXR: No acute pulmonary findings. No findings to suggest congestive heart failure.
[2020-10-06] MEDS: Calcium Carbonate *TUMS* 500 MG CHEW PO (16:35)
[2020-10-06] MEDS: Pantoprazole 40 MG VIAL IVP (16:36)
[2020-10-06] MEDS: nitroGLYcerin 0.4 MG TAB SL ×2 (17:09→17:20)
[2020-10-06 18:11] LABS: Troponin I < 0.05 ng/mL (<0.06)
[2020-10-06] MEDS: Docusate Sodium 100 MG CAP PO (20:00)
[2020-10-06] MEDS: Senna TAB 1 TAB PO (20:00)
[2020-10-06 20:46] LABS: Troponin I < 0.05 ng/mL (<0.06)
[2020-10-07] VITALS (8 sets, daily range): BP systolic 124–150; BP diastolic 67–83; PULSE 60–117; RESP 4–22; TEMP 36–36.8; O2SAT 90–100
[2020-10-07] MEDS: Heparin 5,000 UNITS/ML VIAL 5000 UNITS SC ×2 (03:22→11:52)
[2020-10-07] MEDS: Albuterol/Ipratropium 3 ML UPD VIAL UPD (05:23)
[2020-10-07] MEDS: methylPREDNISolone SUCC 125 MG VIAL 60 MG IVP (05:25)
[2020-10-07] MEDS: Levothyroxine 125 MCG TAB PO (05:25)
[2020-10-07 07:07] LABS: Absolute Basophil Count 0.01 10^3/uL (0.0-0.2); Absolute Eosinophil Count 0.01 10^3/uL (0.0-0.7); Absolute Lymphocyte Count 1.98 10^3/uL (1.2-3.4); Absolute Monocyte Count 0.44 10^3/uL (0.1-0.8); Basophils % 0.1; Eosinophils % 0.1; HCT 30.5 % (36.0-46.0); HGB 10.1 g/dL (11.2-15.7); Immature Grans % 1.5; Lymphocytes % 15.3; MCH 31.4 pg (27.0-33.0); MCHC 33.1 % (32.0-36.0); MCV 94.7 fL (80-95); MPV 9.7 fL (8.0-11.0); Monocytes % 3.4; Neutrophils % 79.6; Nucleated RBC 0 %; Platelet Count 250 10^3/uL (130-400); RBC 3.22 10^6/uL (3.93-5.22); RDW 14.7 % (11.7-14.6); RDW-SD 51.5 fL; WBC 12.91 10^3/uL (4.4-10.8)
[2020-10-07 07:13] LABS: Absolute Neutrophil Count 10.28 10^3/uL (1.2-6.7)
[2020-10-07 07:16] LABS: Anion Gap 5.8 mmol/L (3-11); BUN 29 mg/dL (7-18); CO2 26.2 mmol/L (21.0-32.0); CREATININE 1.38 mg/dL (0.55-1.02); Calcium 8.8 mg/dL (8.5-10.1); Chloride 96 mmol/L (98-107); Estimated GFR 37.48 (mL/min/1.73m2); Glucose 145 mg/dL (74-106); Magnesium 2.3 mg/dL (1.8-2.4); Potassium 4.1 mmol/L (3.5-5.1); Sodium 128 mmol/L (136-145)
[2020-10-07] MEDS: Mometasone 220 MCG 14 DOSE INHALER IH (08:07)
[2020-10-07] MEDS: Insulin Aspart 300 UNITS/3 ML PEN SC ×2 (08:46→11:52)
[2020-10-07] MEDS: Senna TAB 1 TAB PO (08:46)
[2020-10-07] MEDS: Aspirin E.C. 81 MG TABEC PO (08:46)
[2020-10-07] MEDS: guaiFENesin 600 MG TABCR PO (08:46)
[2020-10-07] MEDS: Docusate Sodium 100 MG CAP PO (08:48)
--- NOTE | 2020-10-07 10:28 | PHA.REVIEW ---
Pharmacy Admission Review - Admission Clinical Review (Last Updated 10/04/20 @ 14:39 by Yenny Schaffer MD) Chest pain (Acute) Discharge planning issues (Acute) DVT prophylaxis (Acute) Hyponatremia (Acute) Non-insulin dependent diabetes mellitus (Acute) Acute exacerbation of chronic obstructive pulmonary disease (Acute) Hyponatremia (Acute) Acute kidney injury superimposed on chronic kidney disease (Acute) Elevated TSH (Acute) Penicillins Allergy (Intermediate, Verified 10/04/20 10:34) Swelling/Edema Bees Allergy (Uncoded 10/04/20 10:34) Height 5 ft 4 in Weight 122.6 kg - Renal Dosing Renal Dosing: BUN 29 mg/dL (7-18) H 10/07/20 06:55 Creatinine 1.38 mg/dL (0.55-1.02) H 10/07/20 06:55 Medications needing adjustments: Reviewed List of meds needing interventions: [facility] [place] 46.9 using adj bw, meds ok - Anticoagulation Anticoagulation: Hgb 10.1 g/dL (11.2-15.7) L 10/07/20 06:55 Hct 30.5 % (36.0-46.0) L 10/07/20 06:55 Plt Count 250 10^3/uL (130-400) 10/07/20 06:55 INR 0.9 (0.9-1.1) 10/04/20 06:50 Creatinine 1.38 mg/dL (0.55-1.02) H 10/07/20 06:55 DVT Prohphylaxis: Reviewed Medications: Heparin - Opiate Usage Evaluate Pain Scale/Pains Meds: N/A - Relevant Labs Sodium 128 mmol/L (136-145) L 10/07/20 06:55 Potassium 4.1 mmol/L (3.5-5.1) 10/07/20 06:55 Chloride 96 mmol/L (98-107) L 10/07/20 06:55 Magnesium 2.3 mg/dL (1.8-2.4) 10/07/20 06:55 C-Reactive Protein 0.12 mg/dL (0.0-0.3) 10/05/20 06:30 Electrolytes, C-Reactive P, ESR: Reviewed (completed course of abhilash yesterday) - DM Control DM Control: Glucose 145 mg/dL (74-106) H 10/07/20 06:55 Hemoglobin A1c 6.0 % (<5.7) H 10/05/20 06:30 Finger Stick Blood Glucose 146 Finger Stick Blood Glucose 146 Insulin Dosing: Reviewed (aspart per SS) - Heart Failure/WA Heart Failure/WA: Troponin I < 0.05 ng/mL (<0.06) 10/06/20 20:10 NT-Pro-B Natriuret Pep 87 pg/mL (<300) 10/04/20 06:50 EF%, CHEIKH's, B-Blockers, Diuretics: Reviewed - BP Control BP Control: Blood Pressure 150/67 Blood Pressure 134/83 Blood Pressure 127/79 If elevated: Reviewed - Qtc Review List meds needing interventions: 428 on admission - IV to PO Switch IV Medications: Reviewed (transition to PO today/tomorrow -- steroids and abx) - Home Meds Home Med List reviewed: Intervened Relevent Home Meds Not ordered & why?: added Trelegy inhaler -- per pharmacy records this is what she has been using most recently (filling monthly since September of last year), filled flovent and incruse once in April, also added meloxicam to home med list - Current meds Current Medication Order Review: Reviewed
--- NOTE | 2020-10-07 11:38 | CMDISCH_ITS ---
LACE Index Scoring Tool - Questions: Length of Stay (in days): 3 Acuity (Admit via E.D.?): Yes Comorbidities: Cerebrovascular Disease, Diabetes w/o Complication, Chronic Pulmonary Disease E.D. Visits: 2 - Answers: Total Score: 13 Risk of Readmission: High Risk Care Management Discharge Reason for Hospitalization: GURINDER, SOB Discharge Plan: Shabbir will return home where she resides alone in [facility]. MOW to resume upon discharge, FWW provided per PT recommendation. SHABBIR LEFT AMA. Patient/Family Education Needs: Review discharge instructions, discuss Ask Me Three. Services Needed at Discharge: DME Agency ([facility])
[2020-10-07] MEDS: Normal Saline Flush 10 ML SYR IVP (11:53)
--- NOTE | 2020-10-07 12:50 | W.PM.DS.N ---
Date of service: 10/07/20 Time of Service: 12:50 DS: Diagnosis Discharge Diagnosis (1) Chest pain: Status: Acute (2) Acute kidney injury superimposed on chronic kidney disease: Status: Acute (3) Hyperkalemia: Status: Resolved (4) Acute exacerbation of chronic obstructive pulmonary disease: Status: Acute (5) Non-insulin dependent diabetes mellitus: Status: Acute (6) Hyponatremia: Status: Acute (7) COVID-19 ruled out by laboratory testing: Status: Ruled-out (8) Aneurysm of infrarenal abdominal aorta: Status: Acute Asessment and Plan: PCP to arrange follow up. Discharge Plan Disposition Patient Disposition: AGAINST MEDICAL ADVICE Condition: Fair Discharge Details Reason For Visit: GURINDER, HYPERKALEMIA, COPD EXACERBATION, PUI Admit Date/Time: 10/04/20 09:28 Admit Provider: Yenny Schaffer Attending Provider: Yenny Schaffer Primary Care Provider: Kathleen Azevedo Hospital Course Hospital Course: Ms Martínez is a 75 year old female with PMHx of non-oxygen dependent COPD, hypertension, hypothyroidism, medical noncompliance, who is leaving AMA today after an admission to [facility] hospitalist service on 10/04/2020 with GURINDER on CKD and hyperkalemia due to bactrim therapy for a UTI as outpatient. The patient also was found to have a COPD exacerbation without evidence of pneumonia, and COVID-19 was ruled out. She was initially admitted to the ICU due to the hyperkalemia (admission potassium was 6.9). She was treated with IVF, D50/insulin, lokelam, renal diet, and lisinopril was held. She was transferred out of the ICU on hospital day 2. For her COPD exacerbation, she was treated with systemic steroids as well as nebulizer treatments and empiric levofloxacin. Urine C&S on this admission was negative. It also needs to be mentioned that Brodnax's TSH was 70 on this admission. She states she does not always take her synthroid. She was continued on her outpatient dose of synthroid here. She will need this followed up with her PCP. The patient is leaving AMA today because of her uncontrollable desire to smoke a cigarette which she has been consistently reporting since admission. She was advised to quit, but is not interested. She does have evidence of 5 cm infrarenal abdominal aortic aneurysm on CT, which will need to be followed up by PCP. She would benefit from home health nursing and PT on discharge. Additionally, she requires a walker and a nebulizer machine on discharge. Care for patient as well as completion of her discharge summary on day of discharge took 45 minutes. Home Meds and New Rx's Prescriptions: New ipratropium-albuterol 0.5 mg-3 mg(2.5 mg base)/3 mL Solution For Nebulization 3 ml UPD Q4H PRN PRN (Reason: shortness of breath or wheezing) Qty: 180 RF: 0 docusate sodium [Colace] 100 mg Capsule 100 mg PO BID Qty: 60 RF: 0 guaifenesin [Mucinex] 600 mg Tablet Extended Release 12hr 600 mg PO BID PRN PRN (Reason: cough) Qty: 20 RF: 0 levofloxacin 750 mg Tablet 750 mg PO Q48H Qty: 2 RF: 0 pantoprazole 40 mg Tablet,Delayed Release (Dr/Ec) 40 mg PO DAILY@0730 Qty: 30 RF: 0 prednisone 20 mg Tablet See Rx Instructions .ROUTE .COMPLEX Qty: 20 RF: 0 sennosides [Senokot] 8.6 mg Tablet 8.6 mg PO BID Qty: 60 RF: 0 Continued Flovent HFA 220 mcg/actuation HFA aerosol inhaler 2 puff INHALATION BID RF: 0 Trelegy Ellipta 100-62.5-25 mcg blister with device 1 inh INHALATION DAILY RF: 0 meloxicam 15 mg tablet 15 mg PO DAILY RF: 0 amlodipine 2.5 mg tablet 2.5 mg PO DAILY RF: 0 aspirin 81 mg tablet,delayed release (DR/EC) 81 mg PO DAILY RF: 0 levothyroxine 125 mcg tablet 125 mcg PO DAILY RF: 0 pravastatin 20 mg tablet 20 mg PO DAILY RF: 0 Discontinued lisinopril 30 mg tablet 30 mg PO DAILY RF: 0 Discharge Instructions Instructions: How to Stop Smoking (DC), Acute Kidney Injury (DC), Nonruptured Abdominal Aortic Aneurysm (DC), COPD (Chronic Obstructive Pulmonary Disease) (DC), How to Use a Nebulizer (DC), Against Medical Advice (DC) Additional Instructions: You really should not leave the hospital. Since you are leaving, finish your antibiotics (levofloxacin) and prednisone as prescribed. You must stop smoking. Return to the hospital with any fever, bleeding, chest pain, or shortness of breath. Follow up with your PCP in 1-2 days. 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 Referrals: Kathleen Azevedo [Primary Care Provider] - Activity:: Activity as Tolerated Equipment/Supplies:: nebulizer and a walker Diet:: As Tolerated Discharge Orders Discharge Orders: Discharge Order (Routine); Ordered 10/07/20 Ordered By: Yenny Schaffer DS: Summary Status at Discharge Functional status at discharge: uses cane/walker Overall status at discharge: patient is not back to baseline Mental Status: mental status grossly normal Speech and Movement: speech and movement normal Mood: dysthymic mood Affect: irritable affect Exam Narrative Exam Narrative: General: Obese female, sitting up in bed, getting dressed, accuses me of losing her underwear; she is audibly wheezing which I can hear standing several feet away from her. HEENT: EOMI, MMM Cardiovascular: not auscultated today Lungs: audibly wheezing Gastrointestinal: soft, nontender, nondistended Extremities: trace symmetric edema BLEs Psych Mental Status: mental status grossly normal Speech and Movement: speech and movement normal Mood: dysthymic mood Affect: irritable affect DS: Data Vitals/I&O Vitals and I&O: Vital Signs Temperature 36.6 C 10/07/20 11:33 Temperature Source Tympanic 10/07/20 11:33 Pulse 60 10/07/20 11:33 Pulse Rhythm Regular 10/07/20 11:27 Pulse 79 10/05/20 13:47 Respiratory Rate 18 10/07/20 11:33 Respiratory Effort 10/07/20 11:27 Respiratory Depth Normal 10/07/20 11:27 Respiratory Pattern Normal 10/07/20 11:27 Blood Pressure 124/69 10/07/20 11:33 Blood Pressure Mean 83 10/05/20 13:16 Blood Pressure Position Sitting 10/05/20 04:00 Pulse Oximetry 92 10/07/20 11:33 Oxygen Delivery Method Room Air 10/07/20 11:33 Oxygen Flow Rate 0 10/07/20 11:33 Pain Level 0 10/07/20 11:33 Comment 10/07/20 07:42 Intake & Output 10/06/20 10/07/20 10/07/20 23:59 11:59 23:59 Intake Total 240 / 1480 2 / 2 Output Total 850 / 2075 1300 / 1300 Balance -610 / -595 -1298 / -1298 Intake: Oral 240 / 480 2 / 2 Output: Urine 850 / 2075 1300 / 1300 Other: Urine Color Yellow Yellow Urine Appearance Clear Clear Data Completed and Pending Completed studies during hospitalization [Text1]: CXR 10/04/2020: No acute pulmonary findings. CT renal: 1. No evidence of bowel obstruction. 2. No evidence of nephrolithiasis or hydronephrosis. 3. Cholelithiasis. No biliary ductal dilatation. 4. Large amount of retained stool in the colon. 5. Colonic diverticulosis but no evidence of acute diverticulitis. 6. 5 cm infrarenal abdominal aortic aneurysm. 7. Findings were discussed with the emergency department on the date of the examination. CXR 10/05/2020: No acute pulmonary findings. No findings to suggest congestive heart failure. Echo: The left ventricle is normal size. The left ventricular systolic function is normal. The left ventricular ejection fraction is within the normal range. There is normal left ventricular wall thickness. There is normal LV segmental wall motion. There is no ventricular septal defect visualized. LVEF is 50%. Right Ventricle Right ventricle is not well visualized. Right ventricular systolic function could not be assessed. The RVSP is 19.3 mmHg. Atria The left atrium size is normal. Right atrium is not well visualized. The interatrial septum is intact with no evidence for an atrial septal defect. Aortic Valve The aortic valve is normal in structure. There is no aortic valvular stenosis. No aortic regurgitation is present. Mitral Valve The mitral valve is normal in structure. No evidence of mitral valve stenosis. Trace mitral regurgitation. Tricuspid Valve The tricuspid valve is normal in structure. There is no tricuspid valve stenosis. Trace tricuspid regurgitation. Pulmonic Valve Pulmonic valve is not well visualized. There is no pulmonic valvular stenosis. There is no pulmonic valvular regurgitation. Great Vessels The aortic root is normal in size. Ascending aorta is not well visualized. Aortic arch is not well visualized. IVC is normal in size and collapses >50% with inspiration. Pericardium There is no pericardial effusion. Labs on day of discharge: Labs from last 24 hours 10/07/20 10/07/20 10/06/20 06:55 06:55 20:10 WBC 12.91 H RBC 3.22 L Hgb 10.1 L Hct 30.5 L MCV 94.7 MCH 31.4 MCHC 33.1 RDW 14.7 H Plt Count 250 MPV 9.7 Immature Gran % 1.5 Neutrophils % 79.6 Lymphocytes % 15.3 Monocytes % 3.4 Eosinophils % 0.1 Basophils % 0.1 Nucleated RBC % 0 Absolute Neutrophils 10.28 H Absolute Lymphocytes 1.98 Absolute Monocytes 0.44 Absolute Eosinophils 0.01 Absolute Basophils 0.01 Sodium 128 L Potassium 4.1 Chloride 96 L Carbon Dioxide 26.2 Anion Gap 5.8 BUN 29 H Creatinine 1.38 H Estimated GFR/1.73 m2 37.48 Glucose 145 H Calcium 8.8 Magnesium 2.3 Troponin I < 0.05 10/06/20 16:30 WBC RBC Hgb Hct MCV MCH MCHC RDW Plt Count MPV Immature Gran % Neutrophils % Lymphocytes % Monocytes % Eosinophils % Basophils % Nucleated RBC % Absolute Neutrophils Absolute Lymphocytes Absolute Monocytes Absolute Eosinophils Absolute Basophils Sodium Potassium Chloride Carbon Dioxide Anion Gap BUN Creatinine Estimated GFR/1.73 m2 Glucose Calcium Magnesium Troponin I < 0.05 [facility] Medical History (Updated 10/07/20 @ 13:12 by Yenny Schaffer MD) Aneurysm of infrarenal abdominal aorta CKD (chronic kidney disease) stage 3, GFR 30-59 ml/min COPD (chronic obstructive pulmonary disease) Hx of hyperlipidemia Hypothyroidism Non-insulin dependent diabetes mellitus Noncompliance with medication regimen Obesity Osteoarthritis of right knee Urinary tract infection Surgical History (Updated 10/04/20 @ 08:36 by Tiff Gould DO) History of bilateral tubal ligation History of hernia repair Family History (Updated 10/04/20 @ 14:03 by Yenny Schaffer MD) Father Diabetes Social History (Updated 10/04/20 @ 14:04 by Yenny Schaffer MD) Smoking/Tobacco Use Status: Current every day Tobacco Type: cigarettes Years smoked: 15 Tobacco: How many years used: 15 Counseling given: provider counseling and support medications Smoking risk assessment performed?: Yes Alcohol Intake: never Drug use: Never Substance use type: does not use Do you feel safe at home: Yes Do you feel safe in your relationship?: Yes
--- NOTE | 2020-10-07 13:06 | PT.INTREAT ---
Date of service: 10/07/20 Time of Service: 10:30 PT Notes Visit Reasons: GURINDER, HYPERKALEMIA, COPD EXACERBATION, PUI Inpatient Physical Therapy Treatment Note [facility] Date: 10/07/2020 PRECAUTIONS: Fall SUBJECTIVE: Fabiola is hesitant, but agreeable to participating in PT. She states that she wants to go home today. OBJECTIVE: PAIN: No c/o pain BED MOBILITY/TRANSFERS Supine-sit: I Sit-stand: S Stand-sit: S GAIT Assistive Device: SPC FWW Weight bearing: Full Assist: CGA with SPC S with FWW Distance: 80' with SPC 80' with FWW Deviation: LOB x2 requiring Min A-CGA for recovery with use of SPC; increased SOB VITALS: Treatment performed in collaboration with Respiratory Therapy. Please see their note for specific vital sign details. ASSESSMENT: Patient demonstrates significantly improved stability, pacing, and safety with use of FWW versus SPC with gait training. Patient is agreeable to accepting FWW and using it at home for ambulation within and outside of her home at this time. PLAN: Issued and fit personal FWW for at home use. Patient to continue with gait training and global strengthening via Home Health PT. TREATMENT CODE/TIME: 30 minutes; [id number] x2
--- NOTE | 2020-10-07 13:15 | RESPIRATORY ---
PT leaving AMA, Dr. Schaffer prescribed DuoNeb and a nebulizer machine on leaving, pt has been issued a nebulizer from [employer], rental #[id number]
--- NOTE | 2020-10-07 13:15 | PDOC.HHF2F ---
Home Health Certification Home Health Certification: 1. Encounter Date and Reason I certify that SHABBIR ALFONSO was seen by Yenny Schaffer on 10/07/20 and that I had a [id number] encounter with this patient that meets the physician face to face encounter requirements. 2. Clinical Findings Supporting Skilled Need and Homebound Status I certify that home health services are medically necessary, include either intermittent intermediate and/or physical/speech therapy, and that this patient is homebound in that absences from the home require considerable and taxing effort and are infrequent or of short duration, or are attributable to the need to receive medical care. [X] (a) Attached documentation from encounter provides clinical findings supporting skilled need and homebound status (including what assistance patient requires to leave the home). The encounter with the patient was in whole, or in part, for the following medical condition, which is the primary reason for home health care: GURINDER, HYPERKALEMIA, COPD EXACERBATION, PUI Long-Term: Recent admission for GURINDER on CKD with hyperkalemia, severe hypothyroidism, COPD exacerbation, known smoker, known to be medically noncompliant. Please, perform medication assessment/teaching. 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 Certification and Authentication I certify that I composed the above information based on my clinical judgement relating to this patient's medical condition and, if applicable, clinical findings communicated to me by the NPP or inpatient physician who performed the Home Health Referral. All further orders will be obtained through __Kathleen __Roberto Carlos (Community Based Physician - PCP)
--- NOTE | 2020-10-07 14:33 | NUR.NOTE ---
Nursing Note: Patient made it very clear from the start of the shift, that she was unhappy here and was going to leave today, as she wanted to go to smoke. Smoking cessation was discussed, and patient made it abundantly clear that she had no intention of quitting smoking despite knowing the risk of smoking and her copd. Provider found her getting dressed, and provider said she was leaving. Risk of leaving was discussed again with patient, iv access removed, AMA formed signed. Provider wanted me to give her some paperwork, she was on the elevator and gone before papers were even printed. I updated patients sister who lives out of state
--- NOTE | 2020-10-10 12:52 | PT.INDS ---
Date of service: 10/10/20 Time of Service: 12:53 PT Notes Visit Reasons: GURINDER, HYPERKALEMIA, COPD EXACERBATION, PUI Physical Therapy Inpatient Discharge Summary Date: 10/10/2020 Service: 10/05/2020 through 10/07/2020 This is a clinical summary of care provided on the duration of dates listed above. No charge was made in the completion of this documentation. Referring Doctor: Yenny Schaffer MD PT Orders: PT CONSULT: Limited ability Precautions: Fall. Standard. Activity as tolerated. Patient Profile/Admitting Diagnosis: James asencio is a 75-year-old female who presented to the ED on 10/04/2020 with chief complaints of worsening shortness of breath and dizziness. Patient is diagnosed with acute kidney injury superimposed on chronic kidney disease, hyperkalemia, COPD exacerbation, NIDDM and hyponatremia. PMHX: Medical History (Updated 10/04/20 @ 14:39 by Yenny Schaffer MD) CKD (chronic kidney disease) stage 3, GFR 30-59 ml/min COPD (chronic obstructive pulmonary disease) Hx of hyperlipidemia Hypothyroidism Non-insulin dependent diabetes mellitus Noncompliance with medication regimen Obesity Osteoarthritis of right knee Urinary tract infection Surgical History (Updated 10/04/20 @ 08:36 by Tiff Gould DO) History of bilateral tubal ligation History of hernia repair Social History/Home Situation: I have a lives alone in an apartment with no steps to enter. All mobility ADL performance using the single-point cane. She rides [employer] bus grocery shopping. She receives Meals on Wheels. Equipment Owned/DME: Single-point cane Subjective: NT. See most recent TECHNICAL SERVICES ASSISTANT notes. Objective: General Observation: NT. See most recent TECHNICAL SERVICES ASSISTANT notes. Mental Status: NT. See most recent TECHNICAL SERVICES ASSISTANT notes. Pain: NT. See most recent TECHNICAL SERVICES ASSISTANT notes. ROM: Right Upper Extremity: Shoulder Flexion WFL. Shoulder abduction WFL. Elbow flexion WFL. Wrist flexion WFL. Opening and closing of hand WFL. Left Upper Extremity: Shoulder Flexion WFL. Shoulder abduction WFL. Elbow flexion WFL. Wrist flexion WFL. Opening and closing of hand WFL. Right Lower Extremity: Hip flexion allows 90 degrees only. Hip abduction WFL. Knee flexion WFL. Ankle dorsiflexion WFL. Ankle plantarflexion WFL. Left Lower Extremity: Hip flexion allows 90 degrees only. Hip abduction WFL. Knee flexion WFL. Ankle dorsiflexion WFL. Ankle plantarflexion WFL.. Hip abduction WFL. Knee flexion WFL. Ankle dorsiflexion WFL. Ankle plantarflexion WFL. Strength: Right Upper Extremity: Shoulder flexors 4-/5. Shoulder abductors 4-/5. Elbow flexors 4-/5. Elbow extensors 4/5. Hydraulic Operator strong. Left Upper Extremity: Shoulder flexors 4-/5. Shoulder abductors 4-/5. Elbow flexors 4-/5. Elbow extensors 4/5. Hydraulic Operator strong. Right Lower Extremity: Hip flexors 3-/5. Hip abductors 4-/5. Knee flexors 4-/5. Knee extensors 4-/5. Ankle dorsiflexors 4/5. Ankle plantarflexors 4/5. Left Lower Extremity: Hip flexors 3-/5. Hip abductors 4-/5. Knee flexors 4-/5. Knee extensors 4-/5. Ankle dorsiflexors 4/5. Ankle plantarflexors 4/5. Sensation: Intact as to pain and pressure on bilateral lower extremities. Bed Mobility/Transfers: Rolling independent Supine to sit independent Sit to supine independent Sit to stand supervision Stand to sit supervision Bed to chair supervision Chair to bed supervision Gait: With CGA, 80 feet using SPC with SOB and LOB. With FWW, supervision for 80 feet. Balance: Static Sitting: Normal Dynamic Sitting: Normal Static Standing: Fair Dynamic Standing: Fair Assessment: [place] continues to demonstrate functional mobility decline requiring the use of a front wheeled walker for all mobility ADL performance, decreased activity tolerance, difficulty with walking, and increased risk for falls due to admitting diagnoses. Patient continues to present with clinical signs and symptoms consistent with current/admitting diagnoses that have resulted to mobility limitations, gait instability, generalized weakness, and impairment of motor control as demonstrated by the following impairment level findings: 1. Decreased strength to B LE major muscle groups 2. Impaired standing balance 3. Impaired activity tolerance Impairments are continuing to contribute to the following functional limitations: 1. Inability to safely ambulate without assistive device 2. Increase completion time for mobility ADL performance 3. Increased fall risk 4. Inability to negotiate steps alone safely Goals: Goals X1 week 1. Supine-Sit independent MET 2. Sit-Supine independent MET 3. Sit-Stand independent NOT MET 4. Stand-Sit independent NOT MET 5. Bed-Chair independent NOT MET 6. Chair-Bed independent NOT MET 7. Independent gait on level surface with use of single-point cane for at least 300 feet without report of pain nor dyspnea NOT MET 8. Independent stair negotiation while holding onto bilateral rails for at least 3 steps without report of pain nor dyspnea NOT MET 9. Independent with home exercise program NOT MET 10. Good static and dynamic standing balance/tolerance NOT MET DISCHARGE RECOMMENDATIONS: Patient will benefit from home health PT services in order to progress mobility level using single-point cane, assess home safety, identify additional equipment needs, and establish a functional maintenance program that will increase ability of patient to remain at home. TREATMENT CODE/TIME: NC. Thank you for the opportunity to participate in the care of this patient. Ting Posada PT, DPT, CLT [facility] [place], [place]
== END 2020-10-07 13:16 | disposition left against medical advice (07) | DRG 191 ==
LOC: ER 10:17 → ICU 10:51 → MS 10-05 14:53
PROVIDERS: Emergency Medicine; Admitting Provider Internal Medicine; Emergency Provider Physician Assistant; PCP Nurse Practitioner; Visit Provider Internal Medicine
DX: J44.1 Chronic obstructive pulmonary disease with (acute) exacerbation (principal); N17.9 Acute kidney failure, unspecified; E87.1 Hypo-osmolality and hyponatremia; N18.9 Chronic kidney disease, unspecified; I12.9 Hypertensive chronic kidney disease with stage 1 through stage 4 chronic kidney disease, or unspecified chronic kidney disease; E03.9 Hypothyroidism, unspecified; Z91.19 Patient's noncompliance with other medical treatment and regimen; E87.5 Hyperkalemia; Z11.59 Encounter for screening for other viral diseases; F17.210 Nicotine dependence, cigarettes, uncomplicated; I71.4 Abdominal aortic aneurysm, without rupture
CPT/HCPCS: 36415; 36416; 51702; 80048; 80053; 80076; 82550; 82805; 82962; 84145; 87449; 93005; 94618; 94640; 96361; 96374; 96375; 97162; 97530; 99223; 99232; 99239; 99285; U0003; 71045; 74176; 81003; 81015; 82728; 83036; 83735; 83880; 84439; 84443; 84484; 85025; 85379; 85610; 85730; 86140; 87086; 93010; 93306; 94667; J0610; J1644; J1956; J2930; J7620

== ENCOUNTER 2020-10-25 12:20 | Outpatient (REF) | payer OTHER, MEDICAID, SELFPAY ==
[2020-10-25 18:07] LABS: HCT 37.5 % (36.0-46.0); HGB 11.3 g/dL (11.2-15.7); MCHC 30.1 % (32.0-36.0); MCV 102.7 fL (80-95); MPV 11.7 fL (8.0-11.0); Platelet Count 188 10^3/uL (130-400); RBC 3.65 10^6/uL (3.93-5.22); RDW 14.8 % (11.7-14.6); RDW-SD 56.6 fL; WBC 9.11 10^3/uL (4.4-10.8)
[2020-10-25 18:39] LABS: Iron 50 ug/dL (50-170)
[2020-10-25 18:45] LABS: BUN 31 mg/dL (7-18); CREATININE 1.44 mg/dL (0.55-1.02); Calcium 9.4 mg/dL (8.5-10.1); Chloride 97 mmol/L (98-107); Estimated GFR 35.68 (mL/min/1.73m2); Ferritin 55 ng/mL (8-252); Glucose 150 mg/dL (74-106); Potassium 4.2 mmol/L (3.5-5.1); Sodium 137 mmol/L (136-145); TSH 85.49 uIU/mL (0.36-3.74)
== END 2020-10-25 12:40 ==
LOC: NCHCN 12:20
PROVIDERS: PCP Nurse Practitioner; Visit Provider Physician Assistant
DX: N18.30 Chronic kidney disease, stage 3 unspecified (principal); E03.9 Hypothyroidism, unspecified; D64.9 Anemia, unspecified
CPT/HCPCS: 80048; 85027; 82728; 83540; 84443

== ENCOUNTER 2020-12-06 10:33 | Outpatient (REF) | payer OTHER, MEDICAID, SELFPAY | END 2020-12-06 10:53 | LOC: NCHCN 10:33 | PROVIDERS: PCP Nurse Practitioner; Visit Provider Physician Assistant | DX: E03.9 Hypothyroidism, unspecified (principal) | CPT/HCPCS: 84443 ==

== ENCOUNTER 2020-12-31 23:19 | Emergency (ER) | payer OTHER, MEDICAID, SELFPAY ==
--- NOTE | 2020-12-31 23:15 | DI.CT_ITS ---
EXAM: CT HEAD WO CLINICAL HISTORY: altered mental status. TECHNIQUE: Imaging Protocol: Axial computed tomography images with coronal and sagittal reformatted images were created and reviewed COMPARISON: No exams were available for comparison FINDINGS: There are no skull fractures. There is mucosal thickening and decreased size of the right maxillary sinus and what appears to be a surgical defect in the medial wall of the right maxillary sinus. The opposite-left maxillary sinus appears unremarkable. No significant findings in the ethmoid air cell s and sphenoid sinuses nor in the frontal sinuses. Hyperostosis frontalis interna is noted. There is no evidence of intracranial hemorrhage, mass effect, or shift of midline structures. There are no extra-axial fluid collections. The ventricles are not enlarged or shifted and there is no blo od within the ventricular system nor within the basal cisterns. There is some mild bilateral periventricular hypodensity consistent with chronic small vessel disease . Also a 5 x 3 millimeter lacunar infarct evident in the anterior limb of the right internal capsule , age indeterminate. Another smaller hypodensity in left periventricular white matter is probably an other lacunar infarct, age indeterminate. Both are nonhemorrhagic. IMPRESSION: White matter findings as described above consistent with bilateral nonhemorrhagic lacunar infarcts, a ge indeterminate. If clinically indicated follow-up MRI with diffusion imaging can be performed. Mucosal thickening and decreased size and evidence of previous surgery of the right maxillary sinus. Remainder of the paranasal sinuses appear unremarkable. RADIATION DOSE DELIVERED: 710.05mGy.cm Total DLP DATA REPOSITORY: All CT scans at this facility are submitted to the National Radiology Data Registry (NRDR) Dose Index Registry (DIR) with the [employer] [place] [employer] (A[employer]). RADIATION OPTIMIZATION: All CT scans at this facility use at least one of these dose optimization te chniques: automated exposure control; mA and/or kV adjustment per patient size (includes targeted exa ms where dose is matched to clinical indication); or iterative reconstruction.
[2020-12-31 23:22] VITALS: BP 137/66; PULSE 91; RESP 18; TEMP 36.6; O2SAT 96
--- NOTE | 2020-12-31 23:30 | ED.GENADUL_ITS ---
Discharge Plan Disposition Patient Disposition: HOME Condition: Stable Discharge Details Clinical Impression: Altered mental status Primary Care Provider: Kathleen Azevedo ED Provider: Matthew Trinh Home Meds and New Rx's Prescriptions: Continued Flovent HFA 220 mcg/actuation HFA aerosol inhaler 2 puff INHALATION BID RF: 0 Trelegy Ellipta 100-62.5-25 mcg blister with device 1 inh INHALATION DAILY RF: 0 meloxicam 15 mg tablet 15 mg PO DAILY RF: 0 ipratropium-albuterol 0.5 mg-3 mg(2.5 mg base)/3 mL Solution For Nebulization 3 ml UPD Q4H PRN PRN (Reason: shortness of breath or wheezing) Qty: 180 RF: 0 docusate sodium [Colace] 100 mg Capsule 100 mg PO BID Qty: 60 RF: 0 guaifenesin [Mucinex] 600 mg Tablet Extended Release 12hr 600 mg PO BID PRN PRN (Reason: cough) Qty: 20 RF: 0 levofloxacin 750 mg Tablet 750 mg PO Q48H Qty: 2 RF: 0 pantoprazole 40 mg Tablet,Delayed Release (Dr/Ec) 40 mg PO DAILY@0730 Qty: 30 RF: 0 prednisone 20 mg Tablet See Rx Instructions .ROUTE .COMPLEX Qty: 20 RF: 0 sennosides [Senokot] 8.6 mg Tablet 8.6 mg PO BID Qty: 60 RF: 0 amlodipine 2.5 mg tablet 2.5 mg PO DAILY RF: 0 aspirin 81 mg tablet,delayed release (DR/EC) 81 mg PO DAILY RF: 0 levothyroxine 125 mcg tablet 125 mcg PO DAILY RF: 0 pravastatin 20 mg tablet 20 mg PO DAILY RF: 0 Discharge Instructions Additional Instructions: your blood work and cat scan did not show any concerning findings and your exam here was normal follow up with your primary care provider within a week if you feel more ill, have severe pain, difficulty breathing or weakness that's worsening return to the emergency department for evaluation Medical Decision Making 75 yo female with hx of dm, copd, who comes in stating I feel fine. EMs reports that the patient called 911 earlier because she saw someone laying on the ground outside her home. PD arrived a few minutes later and could not find evidence of anyone so they called ems. EMS evaluated her and she was caox4 with clear speech and had no complaints and was brought here. She arrives caox4. She is stating she is fairly certain there was someone outsie her house and that she wasn't seeing things. She has clear speech, eomi, perrl, no signs of trauma and has no other complaints at this time. IT is unclear on history of she actually was seeing an actual person or having visual hallucinations, she is having none now. AFter discussion with the pt she is agreeable to sceening labs to evaluate for hyponatremia and other electrolyte abnormalities and also ct head to evaluate for possible entities such as mass though unliekly given lack of head ache. She has no focal neuro deficits and is caox4 so unlikely cva and symptoms seem to have resolved. pt ambulating without assistance and continues to be caox4 without visual or auditory hallucinations. It appears on chart review she has a history of brief intermittent periods of hearing and seeing things. She continues to have no complaints, blood work and ct head show no acute findings. UA does have bacteria but she continues to deny any urinary symptoms so likely asymptomatic bacteriuria, culture ordered. She is requesting d/c and at this time she has capacity to make her own decisions and is clear she has adequate assistance at home. ADvised her to f/u with pcp and return precautions given Differential Diagnosis Differential Diagnosis: sundowning, hyponatremia, sdh, vision changes Medical Records Medical records reviewed: Yes I reviewed the patient's medical records. Imaging Data Radiologic Study: Attestation: I personally reviewed and interpreted this imaging study as follows: Imaging: CT Scan Radiologist's impression: IMPRESSION: 1. Age-appropriate atrophy and chronic microvascular change. 2. Mild age-appropriate atrophy and chronic microvascular iverson Lab Data Lab results reviewed: Yes I reviewed the patient's lab results. HPI General Mode of arrival: EMS . Date/Time Provider Initiated Documentation: 12/31/20 23:29 . Limitations to Documentation: no limitations . Information obtained by: patient and EMS . History of Present Illness 75 year old F presents to the emergency department with the chief complaint of I feel fine, and it has been constant. No relieving factors improve symptom(s), No exacerbating factors reported . Patient did receive the following treatments prior to arrival, none Related Data Home Medications Medication Instructions Recorded Confirmed amlodipine 2.5 mg PO DAILY 09/22/20 10/04/20 aspirin 81 mg PO DAILY 09/22/20 10/04/20 levothyroxine 125 mcg PO DAILY 09/22/20 10/04/20 pravastatin 20 mg PO DAILY 09/22/20 10/04/20 Flovent HFA 2 puff INHALATION BID 10/04/20 10/04/20 Trelegy Ellipta 1 inh INHALATION DAILY 10/07/20 10/07/20 docusate sodium [Colace] 100 mg PO BID #60 cap 10/07/20 guaifenesin [Mucinex] 600 mg PO BID PRN PRN #20 tab 10/07/20 ipratropium-albuterol 3 ml UPD Q4H PRN PRN #180 ml 10/07/20 levofloxacin 750 mg PO Q48H #2 tab 10/07/20 meloxicam 15 mg PO DAILY 10/07/20 10/07/20 pantoprazole 40 mg PO DAILY@0730 #30 tab 10/07/20 prednisone See Rx Instructions .ROUTE 10/07/20 .COMPLEX #20 tab sennosides [Senokot] 8.6 mg PO BID #60 tab 10/07/20 Previous Rx's Medication Instructions Recorded docusate sodium [Colace] 100 mg PO BID #60 cap 10/07/20 guaifenesin [Mucinex] 600 mg PO BID PRN PRN #20 tab 10/07/20 ipratropium-albuterol 3 ml UPD Q4H PRN PRN #180 ml 10/07/20 levofloxacin 750 mg PO Q48H #2 tab 10/07/20 pantoprazole 40 mg PO DAILY@0730 #30 tab 10/07/20 prednisone See Rx Instructions .ROUTE 10/07/20 .COMPLEX #20 tab sennosides [Senokot] 8.6 mg PO BID #60 tab 10/07/20 Allergies Allergy/AdvReac Type Severity Reaction Status Date / Time Penicillins Allergy Intermediate Swelling/Ed Verified 01/01/21 00:29 demond Bees Allergy Uncoded 01/01/21 00:29 General KAYA: 3 Review of Systems All systems reviewed & are unremarkable except as noted in HPI and below Constitutional Constitutional: Denies chills, Denies fever(s) and Denies weakness Cardiovascular Cardiovascular: Denies chest pain and Denies dyspnea Respiratory Respiratory: Denies cough and Denies dyspnea Gastrointestinal Gastrointestinal: Denies abdominal pain, Denies nausea and Denies vomiting Musculoskeletal Musculoskeletal: Denies joint swelling Neurologic Neurologic: Denies weakness Psychiatric Psychiatric: Denies depression PFSH Medical History (Updated 01/01/21 @ 00:41 by Matthew Trinh MD) Aneurysm of infrarenal abdominal aorta CKD (chronic kidney disease) stage 3, GFR 30-59 ml/min COPD (chronic obstructive pulmonary disease) Hx of hyperlipidemia Hypothyroidism Non-insulin dependent diabetes mellitus Noncompliance with medication regimen Obesity Osteoarthritis of right knee Urinary tract infection Surgical History (Updated 10/04/20 @ 08:36 by Tiff Gould DO) History of bilateral tubal ligation History of hernia repair Family History (Updated 10/04/20 @ 14:03 by Yenny Schaffer MD) Father Diabetes Social History (Updated 10/04/20 @ 14:04 by Yenny Schaffer MD) Smoking/Tobacco Use Status: Current every day Tobacco Type: cigarettes Years smoked: 15 Tobacco: How many years used: 15 Counseling given: provider counseling and support medications Smoking risk assessment performed?: Yes Alcohol Intake: never Drug use: Never Substance use type: does not use Do you feel safe at home: Yes Do you feel safe in your relationship?: Yes Exam Const General: no acute distress Orientation: alert HENMT Head: normal to inspection Ears: external ears normal General nose exam: external nose normal Mouth: moist mucous membranes Eyes General: appearance normal, both eyes and all related structures Neck Neck: normal visual inspection Resp Effort & Inspection: normal respiratory effort and able to speak in complete sentences Cardio Rate: regular rate Skin General skin exam: no rashes or lesions noted Neuro General: patient alert and patient oriented x3 Extrem General: normal to inspection Psych Mental Status: mental status grossly normal
[2020-12-31 23:33] VITALS: RESP 18
[2020-12-31 23:45] LABS: BE (Venous) 6 mmol/L (-2-3); HCO3 (Venous) 31 mmol/L (23-28); O2 Sat (Venous) 54 %; TCO2 (Venous) 29 mmol/L (24-29); pCO2 (Venous) 53 mmHg (41-51); pH (Venous) 7.37 (7.31-7.41); pO2 (Venous) 30 mmHg
[2020-12-31 23:46] LABS: Abs Immature Grans 0.02 10^3/uL (0.0-0.06); Absolute Basophil Count 0.03 10^3/uL (0.0-0.2); Absolute Eosinophil Count 0.26 10^3/uL (0.0-0.7); Absolute Lymphocyte Count 2.98 10^3/uL (1.2-3.4); Absolute Monocyte Count 0.74 10^3/uL (0.1-0.8); Absolute Neutrophil Count 4.77 10^3/uL (1.2-6.7); Basophils % 0.3; HCT 38.3 % (36.0-46.0); HGB 11.8 g/dL (11.2-15.7); Immature Grans % 0.2; Lymphocytes % 33.9; MCH 29.1 pg (27.0-33.0); MCHC 30.8 % (32.0-36.0); MCV 94.3 fL (80-95); MPV 11.7 fL (8.0-11.0); Monocytes % 8.4; Neutrophils % 54.2; Nucleated RBC 0 %; Platelet Count 190 10^3/uL (130-400); RBC 4.06 10^6/uL (3.93-5.22); RDW 13.4 % (11.7-14.6); RDW-SD 46.3 fL
[2020-12-31 23:59] LABS: Ammonia < 10 umol/L (11-32)
[2021-01-01 00:01] LABS: PTT Activated 25.9 sec (21.0-27.5); Prothrombin Time 9.8 sec (9.3-11.0)
--- NOTE | 2021-01-01 00:01 | DI.VRAD_ITS ---
PROCEDURE INFORMATION: Exam: CT Head Without Contrast Exam date and time: 12/31/2020 11:46 PM Age: 75 years old Clinical indication: Altered mental status/memory loss TECHNIQUE: Imaging protocol: Computed tomography of the head without contrast. COMPARISON: No relevant prior studies available. FINDINGS: Brain: Age- related chronic microvascular changes are noted within the white matter. Mild age-related chronic microvascular changes are noted within the white matter. Cerebral ventricles: The ventricles and sulci are prominent compatible with age-appropriate atrophy. The ventricles and sulci are mildly prominent compatible with age-appropriate atrophy. Bones/joints: Unremarkable. No acute fracture. Paranasal sinuses: Visualized sinuses are unremarkable. No fluid levels. Mastoid air cells: Visualized mastoid air cells are well aerated. Soft tissues: Unremarkable. IMPRESSION: 1. Age-appropriate atrophy and chronic microvascular change. 2. Mild age-appropriate atrophy and chronic microvascular change. Dictated and Authenticated by: Doe Damian MD. Ordering:KING Castro MD
[2021-01-01 00:10] LABS: ALT 16 U/L (14-59); AST 11 U/L (15-37); Albumin 3.7 g/dL (3.4-5.0); Alkaline Phosphatase 90 U/L (46-116); Anion Gap 8.5 mmol/L (3-11); BUN 25 mg/dL (7-18); Bilirubin, Total 0.2 mg/dL (0.2-1.0); CO2 29.5 mmol/L (21.0-32.0); CREATININE 1.3 mg/dL (0.55-1.02); Calcium 9.1 mg/dL (8.5-10.1); Chloride 102 mmol/L (98-107); Estimated GFR 40.15 (mL/min/1.73m2); Glucose 91 mg/dL (74-106); Magnesium 2.1 mg/dL (1.8-2.4); Potassium 4.3 mmol/L (3.5-5.1); Sodium 140 mmol/L (136-145); TSH (W/Ref FT4) 2.03 uIU/mL (0.36-3.74); Total Protein 7.4 g/dL (6.4-8.2)
[2021-01-01 00:28] LABS: Bilirubin Negative (Negative); Blood Negative (Negative); Clarity Clear (Clear); Glucose Negative (Negative); Ketones Negative (Negative); Leukocyte Esterase Trace (Negative); Nitrite Negative (Negative); Urobilinogen 0.2 EU/dL (Up TO 0.2)
[2021-01-01 00:35] LABS: Bacteria Moderate HPF (Negative); C & S Indicated? Yes; Casts Negative LPF (Negative); Crystals Negative HPF (Negative); Epithelial Cells Few HPF (Negative); Mucus Negative (Negative); RBC Negative HPF (0-2)
[2021-01-01 00:50] VITALS: BP 133/61; PULSE 92; RESP 20; O2SAT 95
--- NOTE | 2021-01-04 11:34 | W.ED.FU ---
I discussed with the patient and she is currently reportedly asymptomatic, however she is a poor historian and I cannot complete my conversation with her, she was alert and answering all my questions appropriately I therefore called her primary care doctor, Kathleen Caballero and patient actually has an appointment scheduled tomorrow morning, they will follow up on her urinalysis per provider.
== END 2021-01-01 01:20 | disposition home or self-care (01) ==
PROVIDERS: Emergency Provider Emergency Medicine; PCP Nurse Practitioner
DX: R41.82 Altered mental status, unspecified (principal); E11.22 Type 2 diabetes mellitus with diabetic chronic kidney disease; N18.30 Chronic kidney disease, stage 3 unspecified; J44.9 Chronic obstructive pulmonary disease, unspecified; F17.210 Nicotine dependence, cigarettes, uncomplicated
CPT/HCPCS: 80053; 82805; 87077; 99284; 70450; 81003; 81015; 82140; 83735; 84443; 85025; 85610; 85730; 87086; 87186; 99283

== ENCOUNTER 2021-01-11 01:09 | Outpatient (CLI) | payer OTHER, MEDICAID, SELFPAY ==
--- NOTE | 2021-01-11 13:59 | DI.RAD_ITS ---
EXAM: XR LUMBAR SPINE COMPLETE CLINICAL HISTORY: LOW BACK PAIN, M54.5. TECHNIQUE: 2D digital imaging was performed. COMPARISON: CT CT RENAL COLIC WO from 10/04/2020 FINDINGS: There is no evidence of fracture or listhesis. No obvious pars defects. No osseous lesions. There is chronic disc space narrowing evident at L5-S1 level and moderate narrow ing evident at L4-5 level. No scoliosis. There are mild degenerative changes in the facet joints. Sacroiliac joints appear unremarkable. No osseous lesions evident. IMPRESSION: Degenerative disc disease. DATA REPOSITORY: RADIATION DOSE DELIVERED:
== END 2021-01-11 01:10 ==
PROVIDERS: PCP Nurse Practitioner; Visit Provider Nurse Practitioner
DX: M54.5 Low back pain (principal); M51.37 Other intervertebral disc degeneration, lumbosacral region
CPT/HCPCS: 72110

== ENCOUNTER → 2021-02-22 08:40 | Outpatient (BNVA) | payer OTHER, MEDICAID, SELFPAY | PROVIDERS: PCP Nurse Practitioner; Referring Provider Nurse Practitioner; Visit Provider Nurse Practitioner Adult Health | DX: R44.3 Hallucinations, unspecified (principal); G31.84 Mild cognitive impairment of uncertain or unknown etiology; E11.22 Type 2 diabetes mellitus with diabetic chronic kidney disease; J44.9 Chronic obstructive pulmonary disease, unspecified; I10 Essential (primary) hypertension; N18.9 Chronic kidney disease, unspecified | CPT/HCPCS: 99205; 99214 ==

== ENCOUNTER 2021-04-22 02:31 | Outpatient (REF) | payer OTHER, MEDICAID, SELFPAY ==
[2021-04-22 09:47] LABS: Bilirubin Negative (Negative); Blood Negative (Negative); Clarity Sl Cloudy (Clear); Glucose Negative (Negative); Ketones Negative (Negative); Leukocyte Esterase Negative (Negative); Nitrite Negative (Negative); Specific Gravity 1.025 (1.005-1.025); Urobilinogen 0.2 EU/dL (Up TO 0.2); pH 5.5 (5-8)
== END 2021-04-22 02:32 | disposition home or self-care (01) ==
LOC: LBN 02:31
PROVIDERS: PCP Nurse Practitioner; Visit Provider Family Medicine
DX: R30.0 Dysuria (principal)
CPT/HCPCS: 81003; 87086

== ENCOUNTER 2021-04-25 21:44 | Outpatient (REF) | payer OTHER, MEDICAID, SELFPAY ==
[2021-04-25 22:15] LABS: Bilirubin Negative (Negative); Blood Negative (Negative); Clarity Clear (Clear); Glucose Negative (Negative); Ketones Negative (Negative); Leukocyte Esterase Negative (Negative); Nitrite Negative (Negative); Specific Gravity 1.015 (1.005-1.025); Urobilinogen 0.2 EU/dL (Up TO 0.2); pH 5.5 (5-8)
== END 2021-04-25 21:45 | disposition home or self-care (01) ==
LOC: LBN 21:44
PROVIDERS: PCP Nurse Practitioner; Visit Provider Family Medicine
DX: R30.0 Dysuria (principal)
CPT/HCPCS: 81003; 87086

== ENCOUNTER 2021-06-14 23:11 | Observation (INO) | payer OTHER, MEDICAID, SELFPAY ==
[2021-06-14 23:06] VITALS: BP 158/106; PULSE 111; RESP 18; TEMP 36.4; O2SAT 95
[2021-06-14 23:17] VITALS: RESP 20
[2021-06-14 23:31] VITALS: BP 158/106; PULSE 107
[2021-06-14 23:37] VITALS: O2SAT 97
--- NOTE | 2021-06-14 23:44 | ED.GENADUL_ITS ---
Discharge Plan Disposition Patient Disposition: [facility] INPATIENT Condition: Stable Discharge Details Clinical Impression: Pulmonary embolism, Constipation Admit Date/Time: 06/15/21 02:47 Admit Provider: Sandeep Blanton Attending Provider: Sandeep Blanton Primary Care Provider: Kathleen Azevedo ED Provider: Cade Desai Medical Decision Making This is a 76-year-old female with a past medical history of COPD, CKD, aneurysm of the abdominal aorta, who presents today for constipation. Patient states that for the last 3 days she has been been unable to have a bowel movement. She admits to hard stool, and mild pain in her lower abdomen. She has not taken any new pain medications, she denies a history of constipation in the past. She denies any vomiting or diarrhea or ankle paresis. She denies any pain in the epigastric region of the chest. Pain is crampy in nature. Relieved by nothing. She states that she has not taken anything for the constipation secondary to lack of funds. No other complaints this time. No other modifying factors. Exam demonstrates well intact scar on her abdomen secondary to her recent AAA surgery. Rectal exam demonstrates no mass, there is a notably large hard firm stool ball in the rectal vault, this is broken up digitally and disimpacted. No mass or blood. Will give enema, because of her recent AAA surgery, I doubt this is a causative agent of her constipation but it certainly is on my differential and concern she otherwise denies a significant history of constipation. We will get a CT scan for further assessment. Will monitor closely and reassess. 3:03 AM After enema and notable digital disimpaction the patient is feeling much better, however notably incidentally the CT scan shows no abnormality or problem with the previous AAA repair, however there is evidence of a pulmonary embolus noted at the lower branches of the lingula of the left lower lobe. I went back and immediately reassessed the patient, heart rate is 95, blood pressure notably stable at 122/75, she is actually hypertensive on her initial arrival. She denies any chest pain or shortness of breath at all right now. On exam assessment of her calves demonstrates no unilateral swelling, no calf tenderne ss. She did have her surgery just over a month ago, and I suspect this is a causative agent. She denies history of PE. She is not on any estrogen. Patient is notably hemodynamically stable here, and does not show evidence of significant strain, and shows no evidence whatsoever of hemodynamic instability. Again to reiterate she came in for chief complaint of constipation and lower abdominal pain only. I do feel that she would be a candidate for oral anticoagulation, however when I did discuss her social situation she states that she does not have any help at home, she lives alone, and has a very hard time getting in filling her prescriptions. She is also worried about going home tonight at this time and caring for herself. Do feel that perhaps she would be a better candidate for overnight observation, and discharge tomorrow after evaluation by care management to make sure she has resources that she needs for appropriate treatment. Out of an abundance of precaution we will get a screening EKG, troponin and BNP to evaluate for any signs of severe heart strain although she clinically does not show any evidence of that at all at this time. I did discuss the case with the hospitalist Dr. Flores, he agrees with the assessment and plan. I will give 10 mg of p.o. Eliquis here. I will place bridging orders on his behalf. I have extensively reviewed the treatment plan and discharge instructions with the patient. I have addressed all patient concerns at this time. The patient was made aware of what symptoms to monitor for that would warrant a return to the emergency department. Discussed the plan with the patient, they demonstrate verbal understanding and agreement with our assessment and plan at this time. The documentation in this chart was dictated using [employer] dictation software. Please excuse any dictation errors. 4 AM The patient's proBNP is normal, troponin normal, EKG notably unremarkable. These values certainly do not seem to show any evidence of significant heart strain. FINDINGS: Pulmonary arteries: There is a pulmonary embolus at the bifurcation of the left branch pulmonary artery extending to right lower lobe and lingular branches. It is an embolus to hilar branches with a moderate clot burden. Aorta: There is no thoracic aortic aneurysm or dissection. Lungs: There are moderate centrilobular and paraseptal emphysematous changes. There are mild bibasilar atelectatic changes. Pleural spaces: Unremarkable. No pneumothorax. No pleural effusion. Heart: No cardiomegaly. The RV/LV ratio is 1.3. Lymph nodes: No enlarged mediastinal or hilar lymph nodes are seen Bones/joints: There is segmental ossification of the anterior longitudinal ligament consistent with benign diffuse idiopathic skeletal hyperostosis (DISH). Soft tissues: Unremarkable. IMPRESSION: 1. Positive for pulmonary embolus to hilar branches of the lingula and left lower lobe. 2. The RV/LV ratio is consistent with left ventricular strain. 3. No thoracic aortic aneurysm or dissection. 4. Moderate centrilobular and paraseptal emphysematous changes. No consolidation. THIS REPORT CONTAINS FINDINGS THAT MAY BE CRITICAL TO PATIENT CARE. The findings were verbally communicated via telephone conference with CADE DESAI at 2:11 AM EDT on 06/15/2021. The findings were acknowledged and understood. FINDINGS: Lungs: There are mild atelectatic changes at the lung bases. Aorta: There has been end-to-end surgical repair of an abdominal aortic aneurysm. The anastomosis is seen at the proximal infrarenal level. The graft extends to above the aortic bifurcation. The suprarenal abdominal aorta measures 2.6 cm in transverse dimension. The mid infrarenal aortic graft is 1.7 cm in diameter. There is no evidence of anastomotic leakage. There is mild narrowing at the anastomosis. Celiac trunk and mesenteric arteries: There are moderate stenosis at the origins of the celiac trunk and SMA. The CAPRICE is occluded at its origin and fills via collaterals. Renal arteries: There is moderate proximal stenosis of the right main renal artery. There is mild proximal stenosis of the left main renal artery with mild tortuosity. Right iliac arteries: There is scattered atherosclerotic plaques and ectasia of the right common and external iliac arteries with a mild proximal stenosis. Left iliac arteries: Scattered atherosclerotic plaques in the tail the a of the left common and external iliac arteries. Liver: There is mild hepatomegaly. No enhancing liver masses identified. Gallbladder and bile ducts: Multiple small layering gallstones are present. There is no evidence of biliary ductal dilation. Pancreas: No pancreatic mass is seen. There is no ductal dilatatioin. Spleen: Normal in size. Adrenal glands: There are no adrenal masses. Kidneys and ureters: There are no enhancing renal masses. No hydronephrosis or obstructing calculi. Stomach and bowel: There is mild diverticulosis in the descending colon and sigmoid without evidence of acute diverticulitis. There is no evidence of small bowel or colonic obstruction.There is mild fecal stasis throughout the colon. Appendix: No evidence of appendicitis. Intraperitoneal space: There is no free intraperitoneal air. No ascites. No fluid collection is seen. Lymph nodes: No enlarged retroperitoneal or mesenteric lymph nodes. Urinary bladder: The bladder shows a normal contour. Reproductive: Unremarkable as visualized. Bones/joints: Degenerative disc disease and vacuum disc at L4-L5 and L5-S1. Soft tissues: There is a healed of the ventral abdominal and pelvic surgical scar. IMPRESSION: 1. Status post surgical end-to-end aortic graft placement for aneurysm. 2. There is a mild stenosis at the proximal anastomosis of less than 50%. No evidence of leakage or complications. 3. Mild colonic fecal stasis. 4. Mild sigmoid diverticulosis without acute diverticulitis. 5. Hepatomegaly. 6. Cholelithiasis without acute cholecystitis. Thank you for allowing us to participate in the care of your patient. Dictated and Authenticated by: Richard Gutierrez MD 06/15/2021 2:17 AM Eastern Time ([place] & [place]) HPI General Date/Time Provider Initiated Documentation: 06/14/21 23:22 . HPI Narrative: This is a 76-year-old female with a past medical history of COPD, CKD, aneurysm of the abdominal aorta, who presents today for constipation. Patient states that for the last 3 days she has been been unable to have a bowel movement. She admits to hard stool, and mild pain in her lower abdomen. She has not taken any new pain medications, she denies a history of constipation in the past. She denies any vomiting or diarrhea or ankle paresis. She denies any pain in the epigastric region of the chest. Pain is crampy in nature. Relieved by nothing. She states that she has not taken anything for the constipation secondary to lack of funds. No other complaints this time. No other modifying factors. Related Data Home Medications Medication Instructions Recorded Confirmed amlodipine 2.5 mg PO DAILY 09/22/20 06/15/21 aspirin 81 mg PO DAILY 09/22/20 06/15/21 levothyroxine 125 mcg PO DAILY 09/22/20 06/15/21 pravastatin 20 mg PO DAILY 09/22/20 06/15/21 Flovent HFA 2 puff INHALATION BID 10/04/20 01/01/21 docusate sodium [Colace] 100 mg PO BID #60 cap 10/07/20 01/01/21 guaifenesin [Mucinex] 600 mg PO BID PRN PRN #20 tab 10/07/20 06/15/21 ipratropium-albuterol 3 ml UPD Q4H PRN PRN #180 ml 10/07/20 06/15/21 pantoprazole 40 mg PO DAILY@0730 #30 tab 10/07/20 01/01/21 sennosides [Senokot] 8.6 mg PO BID #60 tab 10/07/20 01/01/21 Incruse Ellipta 1 inh INHALATION DAILY 01/01/21 06/15/21 acetaminophen [Mapap Arthritis 650 mg PO BID 01/01/21 06/15/21 Pain] albuterol sulfate 2.5 mg INHALATION QID PRN 01/01/21 06/15/21 furosemide 20 mg PO DAILY 01/01/21 06/15/21 levalbuterol tartrate 2 puff INHALATION BID PRN 01/01/21 06/15/21 atorvastatin 80 mg 06/15/21 06/15/21 Previous Rx's Medication Instructions Recorded docusate sodium [Colace] 100 mg PO BID #60 cap 10/07/20 guaifenesin [Mucinex] 600 mg PO BID PRN PRN #20 tab 10/07/20 ipratropium-albuterol 3 ml UPD Q4H PRN PRN #180 ml 10/07/20 pantoprazole 40 mg PO DAILY@0730 #30 tab 10/07/20 sennosides [Senokot] 8.6 mg PO BID #60 tab 10/07/20 Allergies Allergy/AdvReac Type Severity Reaction Status Date / Time Penicillins Allergy Intermediate Swelling/Ed Verified 06/15/21 02:16 demond Bees Allergy Uncoded 06/15/21 02:16 General Stated Complaint: GenMedical KAYA: 4 Review of Systems All systems reviewed & are unremarkable except as noted in HPI and below PFSH Medical History Aneurysm of infrarenal abdominal aorta CKD (chronic kidney disease) stage 3, GFR 30-59 ml/min COPD (chronic obstructive pulmonary disease) Failure to thrive in adult Fracture of both ankles Hallucinations Hearing loss History of blood transfusion Hx of diabetes mellitus Hx of hyperlipidemia Hypertension Hypothyroidism Low back pain Memory impairment Non-insulin dependent diabetes mellitus Noncompliance with medication regimen Obesity Osteoarthritis of right knee Pain, joint, knee, right Seborrheic keratosis Smoker Urinary tract infection Surgical History History of bilateral tubal ligation History of hernia repair Family History Father Diabetes Social History Smoking/Tobacco Use Status: Current every day Tobacco Type: cigarettes Years smoked: 15 Tobacco: How many years used: 15 Counseling given: provider counseling and support medications Smoking risk assessment performed?: Yes Alcohol Intake: never Drug use: Never Substance use type: does not use Household members: none Housing: apartment Number of Children: 3 number of grandchildren: 1 What is your relationship status?: Panel score (0-1 are the most socially isolated patients): 0 What type of physical activity do you participate in: walking Seatbelt use: always Do you feel safe at home: Yes Do you feel safe in your relationship?: Yes Exam Narrative Exam Narrative: 1.Const: Well-nourished, Well-developed, appearing stated age 2.Eyes: PERRL, no conjunctival injection, and symmetrical lids. 3.ENT: Atraumatic external nose and ears. Moist MM. Neck: Symmetric, trachea midline, No thyromegaly. 4.CVS: +S1/S2, No murmurs or gallops. Peripheral pulses 2+ and equal in all extremities. Brisk capillary refill in all extremities. 5.RESP: Unlabored respiratory effort. Clear to auscultation bilaterally. No wheezes rales or rhonchi 6.GI: Soft, Nondistended, No hepatosplenomegaly. No guarding or rebound. Post abdominal scar demonstrates a clean dry and intact scar, no evidence of dehiscence. No severe tenderness. Rectal exam was performed with female nurse at bedside, patient had a notably large hard stool ball in the rectal vault, this was broken up and then digitally disimpacted with by fingers. Are able to remove a large amount of stool without complication. No mass or large anal fissure. 7.MSK: Normocephalic/Atraumatic, Extremities w/o deformity or ttp No cyanosis or clubbing, Normal movement of all extremities 8.Skin: Warm, Dry. No rashes or lesions. 9.Neuro: oncology coordinator II-XII grossly intact. Sensation grossly intact, no focal neurologic deficits. 10.Psych: (AAO) x3. Appropriate mood and affect Course Vital Signs Vital signs: Vital Signs Temperature 36.4 C L 06/14/21 23:06 Pulse 111 H 06/14/21 23:06 Respiratory Rate 18 06/14/21 23:06 Blood Pressure 158/106 H 06/14/21 23:06 Pulse Oximetry 95 06/14/21 23:06 Temperature 36.4 C L 06/14/21 23:06 Temperature Source Temporal Artery Scan 06/14/21 23:06 Pulse 111 H 06/14/21 23:06 Respiratory Rate 20 06/14/21 23:17 Respiratory Effort Non-Labored 06/14/21 23:17 Respiratory Depth Normal 06/14/21 23:17 Respiratory Pattern Normal 06/14/21 23:17 Blood Pressure 158/106 H 06/14/21 23:06 Pulse Oximetry 95 06/14/21 23:06 Oxygen Delivery Method Room Air 06/14/21 23:06 Oxygen Flow Rate 0 06/14/21 23:06 Pain Level 4 06/14/21 23:06
[2021-06-15] VITALS (11 sets, daily range): BP systolic 111–145; BP diastolic 57–90; PULSE 82–100; RESP 17–20; TEMP 36.2–37; O2SAT 92–99
[2021-06-15 00:18] LABS: Abs Immature Grans 0.02 10^3/uL (0.0-0.06); Absolute Basophil Count 0.02 10^3/uL (0.0-0.2); Absolute Eosinophil Count 0.26 10^3/uL (0.0-0.7); Absolute Lymphocyte Count 1.73 10^3/uL (1.2-3.4); Absolute Monocyte Count 0.48 10^3/uL (0.1-0.8); Absolute Neutrophil Count 4.13 10^3/uL (1.2-6.7); Basophils % 0.3; Eosinophils % 3.9; HCT 38.9 % (36.0-46.0); HGB 12.1 g/dL (11.2-15.7); Immature Grans % 0.3; Lymphocytes % 26.1; MCH 28.9 pg (27.0-33.0); MCHC 31.1 % (32.0-36.0); MCV 93.1 fL (80-95); MPV 11.3 fL (8.0-11.0); Monocytes % 7.2; Neutrophils % 62.2; Nucleated RBC 0 %; Platelet Count 161 10^3/uL (130-400); RBC 4.18 10^6/uL (3.93-5.22); RDW 13.6 % (11.7-14.6); RDW-SD 46.6 fL; WBC 6.64 10^3/uL (4.4-10.8)
[2021-06-15 00:23] LABS: ALT 20 U/L (14-59); AST 16 U/L (15-37); Albumin 3.5 g/dL (3.4-5.0); Alkaline Phosphatase 108 U/L (46-116); Anion Gap 7.5 mmol/L (3-11); BUN 31 mg/dL (7-18); Bilirubin, Total 0.2 mg/dL (0.2-1.0); CO2 27.5 mmol/L (21.0-32.0); Calcium 9.3 mg/dL (8.5-10.1); Chloride 107 mmol/L (98-107); Glucose 113 mg/dL (74-106); Potassium 3.8 mmol/L (3.5-5.1); Sodium 142 mmol/L (136-145); Total Protein 7.4 g/dL (6.4-8.2)
--- NOTE | 2021-06-15 01:05 | DI.CT_ITS ---
Exam(s) CT THORAX ABD/PEL CTA EXAM: CT THORAX ABD/PEL CTA CLINICAL HISTORY: abdominal pain, recent AAA repair, constipation. TECHNIQUE: Imaging Protocol: Axial computed tomography images with coronal and sagittal reformatted images were created and reviewed CONTRAST MATERIAL: Intravenous: Omnipaque 350 Contrast volume:100 ml Oral: None COMPARISON: CT CT RENAL COLIC WO from 10/04/2020 FINDINGS: CHEST: Pulmonary arteries: There are intraluminal filling defects within the left pulmonary arteries and the 2nd order vessels to the lingula and left lower lobe. There are no intraluminal filling defects in the opposite-right lung. LUNGS: Emphysematous changes both lung abebe. Mild increased markings but no prominent infiltrates nor pleural effusions and there is no evidence of pulmonary infarction. There are no focal findings in the trachea and mainstem bronchi.. MEDIASTINUM: There is no hilar nor mediastinal adenopathy. Visualized thyroid unremarkable. CARDIAC: Heart size is normal. There is no pericardial effusion. AORTA: Caliber of the thoracic aorta is within normal limits.There is no evidence of aortic dissectio n. ABDOMEN: There has been abdominal aortic aneurysm repair. Maximum diameter presently 2.7 cm. No leak. Mild stenosis at the proximal anastomosis. Also mild-moderate stenosis of the origin of both the superior mesenteric artery and celiac artery. 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 No evidence of signif icant stenosis in the limbs. No stenosis in the common and external iliac arteries nor in the internet researcher al iliac arteries nor in the common femoral arteries. There is no ascites. LIVER: There are no focal hepatic lesions nor dilatation of intrahepatic ducts. GALLBLADDER/BILIARY: Layering density in the gallbladder lumen is either sludge or tiny calculi. The re is no evidence of acute cholecystitis. CBD is not dilated. PANCREAS: No evidence of pancreatic mass nor dilatation of the pancreatic duct. SPLEEN: Spleen is not enlarged. There are no intrasplenic lesions. Splenic and portal veins are horne nt. ADRENALS: There are no significant adrenal masses. KIDNEYS: No cysts evident. No calculi nor hydronephrosis. No solid renal masses. ABDOMINAL AORTA: As above LYMPH NODES: There is no retroperitoneal nor para-aortic adenopathy. No obvious mesenteric masses. ABDOMINAL WALL: No significant hernia . There is streaking subcutaneous soft tissues at and below th e umbilical level but no drainable fluid collection. GI: There is no evidence of bowel obstruction, free air, nor abscess. PELVIS: LYMPH NODES: There is no intrapelvic nor inguinal adenopathy. GI: No evidence of appendicitis.There is sigmoid diverticulosis. No obvious acute diverticulitis. URINARY BLADDER: No calculi nor masses evident REPRODUCTIVE: Age appropriate. OSSEOUS: No significant osseous lesions. IMPRESSION: 1. This study is positive for left lung pulmonary emboli branches to both lingular and left lower lob e. There is no evidence of pulmonary infarction or pleural effusion. No shift of the interventricul ar septum in the heart. 2. Evidence of previous abdominal aortic surgery. Mild stenosis at the proximal anastomosis. No montse dence of leak. 3. Sigmoid diverticulosis. No diverticulitis. 4. Cholelithiasis. No obvious acute cholecystitis nor dilatation of the biliary tree. There is no ascites. RADIATION DOSE DELIVERED: 1,246.29mGy.cm Total DLP DATA REPOSITORY: All CT scans at this facility are submitted to the National Radiology Data Registry (NRDR) Dose Index Registry (DIR) with the [employer] (ACR). RADIATION OPTIMIZATION: All CT scans at this facility use at least one of these dose optimization te chniques: automated exposure control; mA and/or kV adjustment per patient size (includes targeted exa ms where dose is matched to clinical indication); or iterative reconstruction.
[2021-06-15] MEDS: Omnipaque 350 MG/ML 100 ML BTL IJ (01:06)
[2021-06-15] MEDS: Normal Saline Flush 10 ML SYR IVP (01:07)
[2021-06-15] MEDS: Normal Saline - Diluent 50 ML VIAL IV (01:07)
--- NOTE | 2021-06-15 02:17 | DI.VRAD_ITS ---
PROCEDURE INFORMATION: Exam: CTA Chest With Contrast Exam date and time: 06/15/2021 11:59 PM Age: 76 years old Clinical indication: Other: Abdominal pain, recent aaa repair, constipation; Prior surgery; Surgery date: 1-6 months; Surgery type: Aaa repair 6 weeks ago TECHNIQUE: Imaging protocol: Computed tomographic angiography of the chest with contrast. 3D rendering (Not supervised by radiologist): MIP and/or 3D reconstructed images were created by the technologist. Radiation optimization: All CT scans at this facility use at least one of these dose optimization techniques: automated exposure con the trol; mA and/or kV adjustment per patient size (includes targeted exams where dose is matched to clinical indication); or iterative reconstruction. Contrast material: OMNIPAQUE 350; Contrast volume: 100 ml; Contrast route: INTRAVENOUS (IV); COMPARISON: CT CHEST LUNG CANCER SCREEN 11/25/2019 1:07 PM FINDINGS: Pulmonary arteries: There is a pulmonary embolus at the bifurcation of the left branch pulmonary artery extending to right lower lobe and lingular branches. It is an embolus to hilar branches with a moderate clot burden. Aorta: There is no thoracic aortic aneurysm or dissection. Lungs: There are moderate centrilobular and paraseptal emphysematous changes. There are mild bibasilar atelectatic changes. Pleural spaces: Unremarkable. No pneumothorax. No pleural effusion. Heart: No cardiomegaly. The RV/LV ratio is 1.3. Lymph nodes: No enlarged mediastinal or hilar lymph nodes are seen. Bones/joints: There is segmental ossification of the anterior longitudinal ligament consistent with benign diffuse idiopathic skeletal hyperostosis (DISH). Soft tissues: Unremarkable. IMPRESSION: 1. Positive for pulmonary embolus to hilar branches of the lingula and left lower lobe. 2. The RV/LV ratio is consistent with left ventricular strain. 3. No thoracic aortic aneurysm or dissection. 4. Moderate centrilobular and paraseptal emphysematous changes. No consolidation. THIS REPORT CONTAINS FINDINGS THAT MAY BE CRITICAL TO PATIENT CARE. The findings were verbally communicated via telephone conference with CHAPO DESAI at 2:11 AM EDT on 06/15/2021. The findings were acknowledged and understood. PROCEDURE INFORMATION: Exam: CTA Abdomen and Pelvis With Contrast Exam date and time: 06/15/2021 11:59 PM Age: 76 years old Clinical indication: Other: Abdominal pain, recent aaa repair, constipation; Prior surgery; Surgery date: 1-6 months; Surgery type: Aaa repair 6 weeks ago TECHNIQUE: Imaging protocol: Computed tomographic angiography of the abdomen and pelvis with contrast material. 3D rendering (Not supervised by radiologist): MIP and/or 3D reconstructed images were created by the technologist. Radiation optimization: All CT scans at this facility use at least one of these dose optimization techniques: automated exposure control; mA and/or kV adjustment per patient size (includes targeted exams where dose is matched to clinical indication); or iterative reconstruction. Contrast material: OMNIPAQUE 350; Contrast route: INTRAVENOUS (IV); COMPARISON: CT CHEST LUNG CANCER SCREEN 11/25/2019 1:07 PM FINDINGS: Lungs: There are mild atelectatic changes at the lung bases. Aorta: There has been end-to-end surgical repair of an abdominal aortic aneurysm. The anastomosis is seen at the proximal infrarenal level. The graft extends to above the aortic bifurcation. The suprarenal abdominal aorta measures 2.6 cm in transverse dimension. The mid infrarenal aortic graft is 1.7 cm in diameter. There is no evidence of anastomotic leakage. There is mild narrowing at the anastomosis. Celiac trunk and mesenteric arteries: There are moderate stenosis at the origins of the celiac trunk and SMA. The CAPRICE is occluded at its origin and fills via collaterals. Renal arteries: There is moderate proximal stenosis of the right main renal artery. There is mild proximal stenosis of the left main renal artery with mild tortuosity. Right iliac arteries: There is scattered atherosclerotic plaques and ectasia of the right common and external iliac arteries with a mild proximal stenosis. Left iliac arteries: Scattered atherosclerotic plaques in the tail the a of the left common and external iliac arteries. Liver: There is mild hepatomegaly. No enhancing liver masses identified. Gallbladder and bile ducts: Multiple small layering gallstones are present. There is no evidence of biliary ductal dilation. Pancreas: No pancreatic mass is seen. There is no ductal dilatatioin. Spleen: Normal in size. Adrenal glands: There are no adrenal masses. Kidneys and ureters: There are no enhancing renal masses. No hydronephrosis or obstructing calculi. Stomach and bowel: There is mild diverticulosis in the descending colon and sigmoid without evidence of acute diverticulitis. There is no evidence of small bowel or colonic obstruction.There is mild fecal stasis throughout the colon. Appendix: No evidence of appendicitis. Intraperitoneal space: There is no free intraperitoneal air. No ascites. No fluid collection is seen. Lymph nodes: No enlarged retroperitoneal or mesenteric lymph nodes. Urinary bladder: The bladder shows a normal contour. Reproductive: Unremarkable as visualized. Bones/joints: Degenerative disc disease and vacuum disc at L4-L5 and L5-S1. Soft tissues: There is a healed of the ventral abdominal and pelvic surgical scar. IMPRESSION: 1. Status post surgical end-to-end aortic graft placement for aneurysm. 2. There is a mild stenosis at the proximal anastomosis of less than 50%. No evidence of leakage or complications. 3. Mild colonic fecal stasis. 4. Mild sigmoid diverticulosis without acute diverticulitis. 5. Hepatomegaly. 6. Cholelithiasis without acute cholecystitis. Dictated and Authenticated by: Richard Gutierrez MD. Ordering:YANIQUE Mohamud MD
[2021-06-15 02:45] LABS: Source Nasal/Nares
[2021-06-15 02:52] LABS: PTT Activated 23.5 sec (21.0-27.5); Prothrombin Time 9.7 sec (9.3-11.0)
[2021-06-15] MEDS: Apixaban 5 MG TAB 10 MG PO ×3 (02:52→19:25)
--- NOTE | 2021-06-15 03:00 | RT.EKG_ITS ---
APPROVED REPORT Exam: Resting ECG Reason for Exam: pe Patient Location: E HR:91 bpm ECG Measurements Heart Rate 91 AXIS CO 160 P 81 QRSd 90 QRS -34 QT 388 T 62 QTc 478 Conclusion Sinus rhythm...normal P axis, V-rate 60- 99 Left axis deviation...QRS axis (-30,-90) Low voltage, precordial leads...precordial leads <1.0mV Physician: No stemi, no [id number], no signs of significant heart strain
[2021-06-15 03:35] LABS: COVID-19 PCR Negative (Negative)
[2021-06-15 03:36] LABS: NT-proBNP 249 pg/mL (<300); Troponin I < 0.05 ng/mL (<0.06)
--- NOTE | 2021-06-15 06:58 | HPE_ITS ---
Date of service: 06/15/21 Time of Service: 06:58 Assessment and Plan Assessment and plan (1) Pulmonary embolism: Status: Chronic Assessment and plan: continue Eliquis 10 mg bid x 10 days then decrease to 5 mg bid; check echocardiogram this a.m. Note patient presented w/ constipation symptoms (abdominal pain, lack of BM x 3 days) and no symptoms of CP or dyspnea. She was tachycardic upon arrival but no hypotension nor any hypoxemia. Her tachycardia resolved when her obstipation/impaction was relieved. Her PESI score is 104 which is class III which is in the intermediate risk category (her simplified PESI score is 1 which is considered high risk). If her echo shows no concerning signs for acute cor pulmonale she could be discharged today if she is able to obtain her Eliquis Qualifiers: Pulmonary embolism type: multiple subsegmental (without acute cor pulmonale) Qualified Code(s): I26.94 - Multiple subsegmental pulmonary emboli without acute cor pulmonale (2) Constipation: Status: Chronic Assessment and plan: patient presented w/ abdominal pain and constipation and was disimpacted in the ER. Resume scheduled docusate and use laxative prn lack of BM; should be referred for c-scope if not done in last 5 yrs. Qualifiers: Constipation type: unspecified constipation type Qualified Code(s): K59.00 - Constipation, unspecified (3) COPD (chronic obstructive pulmonary disease): Status: Chronic Assessment and plan: resume her home inhalers Qualifiers: COPD type: unspecified COPD Qualified Code(s): J44.9 - Chronic obstruc tive pulmonary disease, unspecified (4) Hypothyroidism: Status: Chronic Assessment and plan: resume her levothryoxine; check TSH Qualifiers: Hypothyroidism type: acquired Qualified Code(s): E03.9 - Hypothyroidism, unspecified (5) Non-insulin dependent diabetes mellitus: Status: Chronic Assessment and plan: not currently on any glycemic controlling meds. will check glycohemoglobin A1c and put her on diabetic diet and monitor her finger stick glucose w/ low dose Novolog scale prn History of Present Illness History of Present Illness Chief Complaint: abdominal pain, constipation Narrative: 76 yr old female who lives alone in apartment in [facility] who has chronic constipation but has not been using any stool softeners or laxatives, she presented to the ER explicitly d/t lack of BM x 3 days. She was having lower abdominal pains from her constipation. She denies CP or dyspnea although she has COPD and continues to smoke 1/2 ppd but has not required home oxygen. Because of her hx of AAA repair and her abdominal pain, Dr. Lopez after disimpaction ordered CTA of her abdomen and pelvis and chest. She was found to have left lung PE in branches to lingula and LLL. No evidence of pulmonary infarct and no evidence of right heart strain. CT of abdomen and pelvis shows evidence of prior AAA repair and sigmoid diverticulosis and cholel ithiasis but no cholecystitis. After disimpaction she felt much better and wanted to go home. She was not hypoxemic on presentation (SPO2 95 to 97%), no hypotension and she was tachycardic w/ HR 111 which resolved after she was disimpacted and after her abdominal pain resolved. Patient denies any overt calf or leg pain but has chronic OA of her right knee. Because of her COPD and obesity and her OA she has limited mobility. She lives in a ground floor apartment but does walk to her pharmacy in [facility]) which is across the street from her apartment and she walks to the bank which is about 1/2 mile from her apartment but has to take the bus back home. She has never had DVT or PE in the past and no FH of the same. Patient was started on Eliquis 10 mg last night and will be monitored today while she continues to be loaded w/ Elquis (10 mg bid x 10 days) and will have CM check to see if her insurance will cover her Apixaban. She has no hx of bleeding issues. Her PESI score is 104 which is class III which is considered intermediate risk for 30 day mortality. She was admitted to initiate her Eliquis d/t her age, limited mobility, concern over access to getting new Rx for Eliquis and no support at home to ensure she gets her Eliquis. Review of Systems Constitutional Constitutional: Reports as per HPI and Reports system reviewed and no additional complaints, except as documented [facility] Medical History (Updated 06/15/21 @ 07:10 by Sandeep Blanton) Aneurysm of infrarenal abdominal aorta CKD (chronic kidney disease) stage 3, GFR 30-59 ml/min COPD (chronic obstructive pulmonary disease) Failure to thrive in adult Fracture of both ankles Hallucinations Hearing loss History of blood transfusion Hx of diabetes mellitus Hx of hyperlipidemia Hypertension Hypothyroidism Low back pain Memory impairment Non-insulin dependent diabetes mellitus Noncompliance with medication regimen Obesity Osteoarthritis of right knee Pain, joint, knee, right Seborrheic keratosis Smoker Urinary tract infection Surgical History History of bilateral tubal ligation History of hernia repair Family History Father Diabetes Social History Smoking/Tobacco Use Status: Current every day Tobacco Type: cigarettes Years smoked: 15 Tobacco: How many years used: 15 Counseling given: provider counseling and support medications Smoking risk assessment performed?: Yes Alcohol Intake: never Drug use: Never Substance use type: does not use Household members: none Housing: apartment Number of Children: 3 number of grandchildren: 1 What is your relationship status?: Panel score (0-1 are the most socially isolated patients): 0 What type of physical activity do you participate in: walking Seatbelt use: always Do you feel safe at home: Yes Do you feel safe in your relationship?: Yes Meds Allergies and Home Medications Allergies Allergy/AdvReac Type Severity Reaction Status Date / Time Penicillins Allergy Intermediate Swelling/Ed Verified 06/15/21 02:16 demond Bees Allergy Uncoded 06/15/21 02:16 Home Medications Medication Instructions Recorded Confirmed Type amlodipine 2.5 mg PO DAILY 09/22/20 06/15/21 History aspirin 81 mg PO DAILY 09/22/20 06/15/21 History levothyroxine 125 mcg PO DAILY 09/22/20 06/15/21 History pravastatin 20 mg PO DAILY 09/22/20 06/15/21 History Flovent HFA 2 puff INHALATION BID 10/04/20 01/01/21 History docusate sodium [Colace] 100 mg PO BID #60 cap 10/07/20 01/01/21 Rx guaifenesin [Mucinex] 600 mg PO BID PRN PRN #20 tab 10/07/20 06/15/21 Rx ipratropium-albuterol 3 ml UPD Q4H PRN PRN #180 ml 10/07/20 06/15/21 Rx pantoprazole 40 mg PO DAILY@0730 #30 tab 10/07/20 01/01/21 Rx sennosides [Senokot] 8.6 mg PO BID #60 tab 10/07/20 01/01/21 Rx Incruse Ellipta 1 inh INHALATION DAILY 01/01/21 06/15/21 History acetaminophen [Mapap Arthritis 650 mg PO BID 01/01/21 06/15/21 History Pain] albuterol sulfate 2.5 mg INHALATION QID PRN 01/01/21 06/15/21 History furosemide 20 mg PO DAILY 01/01/21 06/15/21 History levalbuterol tartrate 2 puff INHALATION BID PRN 01/01/21 06/15/21 History atorvastatin 80 mg 06/15/21 06/15/21 History Exam Const General: cooperative, no acute distress and well developed Nutritional Appearance: obese Orientation: alert, awake and oriented x3 HENMT Head: normal to inspection Ears: hearing grossly normal bilaterally General nose exam: external nose normal Face and sinus: normal facial exam Mouth: oral mucosae normal Eyes General: appearance normal, both eyes and all related structures Alignment and Position: alignment normal Periorbital: periorbital findings normal Eyelids: eyelids normal Conjunctivae: conjunctivae normal Sclera: sclerae normal Cornea: corneas normal Pupils: PERRL EOM: EOM intact bilaterally Neck Neck: normal visual inspection, full ROM, no lymphadenopathy, trachea midline, supple, no lymphadenopathy noted and no JVD Thyroid: thyroid normal Carotids: normal carotid upstroke Lymphatic: no lymphadenopathy noted Chest Chest: normal inspection of the chest and normal palpation of entire chest wall Resp Effort & Inspection: normal respiratory effort and able to speak in complete sentences Auscultation: wheezes expiratory wheezes, inspiratory wheezes and scattered wheezes Percussion: percussion normal Cardio Jugular venous pressure: no JVD Palpation: normal PMI Rate: regular rate Rhythm: regular rhythm Heart Sounds: S1 normal, S2 normal and normal, physiologic split S2 Bruits: no abdominal aortic bruits and no carotid bruits Pulses: brachial pulses present, radial pulses present and normal peripheral pulses GI Inspection: obesity and scar (healed midline laparotomy scar) Palpation: soft and no hepatosplenomegaly Percussion: normal to percussion Auscultation: normal bowel sounds Rectal Exam - female: other (deferred and done by ER attending) Back/Spine/Pelvis Back: no CVA tenderness Cervical Spine: cervical ROM normal Thoracic/Lumbar Spine: thoracic and lumbar spine normal to inspection Skin Rashes: rashes noted (bilateral tinea under breasts and inguinal areas) Neuro General: patient alert, patient awake and patient oriented x3 Cranial Nerves: CN's II-XI intact bilaterally Cognition: normal cognition Speech: speech normal Motor: muscle tone normal throughout and strength 5/5 throughout Extrem Right lower extremity: knee Details: tenderness and swelling Psych Appearance: grossly normal Mental Status: mental status grossly normal Speech and Movement: speech and movement normal Mood: congruent mood Affect: normal affect Attitude: cooperative Thought Process: normal Thought Content: normal Insight: insight good Judgment: judgment good Results Imaging CT scan - chest: report reviewed (IMPRESSION: 1. Positive for pulmonary embolus to hilar branches of the lingula and left lower lobe. 2. The RV/LV ratio is consistent with left ventricular strain. 3. No thoracic aortic aneurysm or dissection. 4. Moderate centrilobular and paraseptal emphysematous changes. No consolidation.) and image reviewed EKG: image reviewed (NSR 91 bpm, LAD QRS - 34 degr., low voltage precordial leads; no evidence for RV strain and no ST-T abnormalities) Imaging Studies: attempt made at POCUS of heart: poor images d/t large breasts and lungs from COPD; however was able to perform SC4 chamber which did not show RV Labs Result diagrams: 06/15/21 00:04 06/15/21 00:04 Labs: Laboratory Results - last 24 hr 06/15/21 06/15/21 06/15/21 00:04 00:04 00:04 WBC 6.64 RBC 4.18 Hgb 12.1 Hct 38.9 MCV 93.1 MCH 28.9 MCHC 31.1 L RDW 13.6 Plt Count 161 MPV 11.3 H Immature Gran % 0.3 Neutrophils % 62.2 Lymphocytes % 26.1 Monocytes % 7.2 Eosinophils % 3.9 Basophils % 0.3 Nucleated RBC % 0 Absolute Neutrophils 4.13 Absolute Lymphocytes 1.73 Absolute Monocytes 0.48 Absolute Eosinophils 0.26 Absolute Basophils 0.02 PT INR APTT Sodium 142 Potassium 3.8 Chloride 107 Carbon Dioxide 27.5 Anion Gap 7.5 BUN 31 H Creatinine 1.0 Estimated GFR/1.73 m2 54.20 Glucose 113 H Calcium 9.3 Total Bilirubin 0.2 AST 16 ALT 20 Alkaline Phosphatase 108 Troponin I < 0.05 NT-Pro-B Natriuret Pep 249 Total Protein 7.4 Albumin 3.5 COVID-19 Source SARS-CoV-2 (PCR) 06/15/21 06/15/21 02:30 02:40 WBC RBC Hgb Hct MCV MCH MCHC RDW Plt Count MPV Immature Gran % Neutrophils % Lymphocytes % Monocytes % Eosinophils % Basophils % Nucleated RBC % Absolute Neutrophils Absolute Lymphocytes Absolute Monocytes Absolute Eosinophils Absolute Basophils PT 9.7 INR 1.0 APTT 23.5 Sodium Potassium Chloride Carbon Dioxide Anion Gap BUN Creatinine Estimated GFR/1.73 m2 Glucose Calcium Total Bilirubin AST ALT Alkaline Phosphatase Troponin I NT-Pro-B Natriuret Pep Total Protein Albumin COVID-19 Source Nasal/Nares SARS-CoV-2 (PCR) Negative Last Vital Signs Temp 36.6 C 06/15/21 03:33 Pulse 91 H 06/15/21 04:05 Resp 20 06/15/21 03:33 BP 145/90 H 06/15/21 03:33 Pulse Ox 97 06/15/21 03:33
[2021-06-15] MEDS: Levothyroxine 125 MCG TAB PO (07:43)
--- NOTE | 2021-06-15 08:00 | DI.US_ITS ---
APPROVED REPORT EXAM: Comprehensive 2D, Doppler, and color-flow Echocardiogram Patient Location: In-Patient Room/Bed: 212 Indications: PE, Evaluate for RV strain, COPD Other Information Study Quality: Fair. Technically limited study due to body habitus. Conclusion Left Ventricle : The left ventricle is normal size. Left ventricular systolic function is low normal. There is normal left ventricular wall thickness. There is normal LV segmental wall motion. The left ventricular diastolic function is normal. LVEF is 52%. Right Ventricle : Right ventricle is not well visualized. Right ventricular systolic function could n ot be assessed. The RVSP is28.9 mmHg. Atria : The left atrium size is normal. The right atrium size is normal. Valves: There are no hemodynamically significant valvular lesions. Great Vessels : The aortic root is normal in size. Ascending aorta is not well visualized. Aortic arc h is not well visualized. IVC is normal in size and collapses >50% with inspiration. Wall motion Left Ventricle The left ventricle is normal size. Left ventricular systolic function is low normal. There is normal left ventricular wall thickness. There is normal LV segmental wall motion. The left ventricular diast olic function is normal. There is no ventricular septal defect visualized. LVEF is 52%. Right Ventricle Right ventricle is not well visualized. Right ventricular systolic function could not be assessed. Th e RVSP is28.9 mmHg. Atria The left atrium size is normal. The right atrium size is normal. The interatrial septum is intact wit h no evidence for an atrial septal defect. Aortic Valve The aortic valve is normal in structure. Aortic valve is trileaflet. There is no aortic valvular sten osis. No aortic regurgitation is present. Mitral Valve Mild mitral annular calcification. No evidence of mitral valve stenosis. Trace mitral regurgitation. Tricuspid Valve The tricuspid valve is not well visualized. There is no tricuspid valve stenosis. Trace tricuspid reg urgitation. Pulmonic Valve The pulmonary valve is normal in structure. There is no pulmonic valvular stenosis. There is no pulmo nancie valvular regurgitation. Great Vessels The aortic root is normal in size. Ascending aorta is not well visualized. Aortic arch is not well vi sualized. IVC is normal in size and collapses >50% with inspiration. Pericardium There is no pericardial effusion. 2D Dimensions IVSD d PLAX 1.09 cm F: 0.6-1.0 LV Vol A4C d MOD 81.4 mL LVPW d PLAX 1.06 cm F: 0.6 - 1.0 LV EF A4C MOD 52.0 % LVID d PLAX 4.42 cm F: 3.8 - 5.2 LVDs 3.25 cm F: 2.2 - 3.5 Ao Root d 2.56 cm F: 2.7 - 3.3 LV EF Teichholz 52.0 % LV Volume Index 38.12 mL/m2 F: 29 - 61 FS 26.40 % LV Diastology MV E' medial 0.047 (>0.07 m/s) E/A Ratio 0.6 LV E/e MED 11.75 (<14) MV E Vmax 0.56 (0.4-1.3 m/s) MV E' lateral 0.076 (>0.1 m/s) MV A Vmax 1.00 (0.4-1.3 m/s) LV E/e LAT 7.30 (<14) MV E/A Ratio 0.55 MV E/E' medial 11.79 MV E/E' lateral 7.31 Aortic Valve LVOT Area 3.02 cm2 AoV Area Vmax 2.18 cm2 LVOT Vmax 0.85 m/s AoV Area/ BSA (Vmax) 1.02 cm2/m2 LVOT Mean Marcelo. 0.59 m/s DEBBIE Mean Marcelo. 2.15 cm2 LVOT Peak Grad 2.9 mmHg DEBBIE Mean Marcelo. Index 1.01 cm2/m2 LVOT Mean Grad 1.6 mmHg LVOT VTI 0.160 m LVOT Diam s 1.95 cm AoV Vmax 1.17 m/s Velocity Ratio 0.72 AoV Mean Marcelo. 0.82 m/s AoV Peak Grad 5.5 mmHg LVOT SV 48.44 mL AoV Mean Grad 3.0 mmHg AoV VTI 0.246 m AoV Area VTI 1.97 cm2 AoV Area/ BSA (VTI) 0.92 cm/m2 Mitral Valve MV DT 271 (160-240 msec) MV PHT 79 msec MV Area PHT 2.80 cm2 MV VTI 0.263 m MV Area VTI 1.84 (4.0-6.0 cm2) Pulmonary Valve PV Vmax 1.09 (0.5-1.5 m/s) RVOT Peak Gr. 1.35 mmHg PV Peak Grad 4.7 mmHg RVOT Mean Gr. 0.75 mmHg PV Mean Grad 2.4 mmHg RVOT VTI 0.118 m PV VTI 0.193 m RVOT Vmax 0.58 m/s Tricuspid Valve TR Peak Grad 25.8 mmHg TR Vmax 2.54 m/s RA Pressure 3.00 mmHg RVSP (TR) 28.9 mmHg
[2021-06-15 08:05] LABS: Hemoglobin A1C 5.9 % (<5.7)
[2021-06-15 08:15] LABS: TSH 0.12 uIU/mL (0.36-3.74)
[2021-06-15] MEDS: Docusate Sodium 100 MG CAP PO ×2 (08:32→19:25)
[2021-06-15] MEDS: Pravastatin 20 MG TAB PO (08:32)
[2021-06-15] MEDS: Pantoprazole 40 MG TABCR PO (08:33)
[2021-06-15] MEDS: Furosemide 20 MG TAB PO (08:33)
[2021-06-15] MEDS: amLODIPine 2.5 MG TAB PO (08:33)
--- NOTE | 2021-06-15 08:34 | INITIAL_ITS ---
- If Service Date Differs Date of service: 06/15/21 Time of Service: 08:34 Care Management Initial Assess REASON FOR HOSPITALIZATION:: pulmonary embolus, COPD PAST MEDICAL HISTORY/PAST SURGICAL HISTORY:: Medical History (Updated 06/15/21 @ 07:10 by Sandeep Blanton). Aneurysm of infrarenal abdominal aorta. CKD (chronic kidney disease) stage 3, GFR 30-59 ml/min. COPD (chronic obstructive pulmonary disease). Failure to thrive in adult. Fracture of both ankles. Hallucinations. Hearing loss. History of blood transfusion. Hx of diabetes mellitus. Hx of hyperlipidemia. Hypertension. Hypothyroidism. Low back pain. Memory impairment. Non-insulin dependent diabetes mellitus. Noncompliance with medication regimen. Obesity. Osteoarthritis of right knee. Pain, joint, knee, right. Seborrheic keratosis. Smoker. Urinary tract infection. Surgical History . History of bilateral tubal ligation. History of hernia repair PREVIOUS FUNCTIONAL STATUS/SOCIAL/FAMILY SUPPORTS:: Fabiola lives alone in an apartment in [facility]. She receives Meals on Wheels and uses [facility] for trasnsportation but receives no other home services. Fabiola has 3 sons; one lives in [place], one lives in [place] and the third lives in [place]. She also has one granddaughter in [place]. Fabiola stated that she does have friends in the area who help her out. The son who lives in [place], one of her twins, is a pool lifeguard and she does not get to see him often. CURRENT FUNCTIONAL STATUS:: Fabiola was sitting up in a chair when CM met with her. She stated that she is going to start receiving home health services on 06/21/21 but is unsure what their role will be. She believes this was arranged through her PCP office. ADVANCE DIRECTIVES:: none Has patient been provided with info about the portal/API?: Yes Did the patient sign up for the portal?: No CODE STATUS:: Full Code INSURANCE COVERAGE / FINANCIAL ISSUES:: [facility] HMO (MCR replacement) CURRENT HOME/COMMUNITY SERVICES/EQUIPMENT:: cane. Possible HH services beginning 06/21/21. uses [facility] for transportation PRIMARY CARE PHYSICIAN:: Kathleen Azevedo POTENTIAL DISCHARGE NEEDS:: Followup with PCP and discharge plan of care PATIENT/FAMILY EDUCATION NEEDS:: Review of discharge instructions, medications, activity, limitations, Ask Me Three TRANSPORTATION:: [facility] PLAN:: Fabiola will be discharged home with a resumption of home health services if this can be verified. She will follow up with her PCP and discharge plan of care. CM will continue to support Fabiola and her discharge needs.
[2021-06-15] MEDS: Acetaminophen 325 MG TAB 650 MG PO ×2 (09:20→19:25)
[2021-06-15] MEDS: Umeclidinium 7 CAP INHALER IH (09:24)
[2021-06-15] MEDS: Nystatin POWDER 60 GM JAR TP ×2 (12:27→19:26)
--- NOTE | 2021-06-15 13:33 | PT.INIE ---
Date of service: 06/15/21 Time of Service: 13:10 PT Notes Visit Reasons: PE,Constipation Inpatient Physical Therapy Evaluation Date: 06/15/21 Referring Doctor: Dr. Schaffer PT Orders: PT CONSULT: limited ability to ambulate Precautions: standard Patient Profile/Admitting Diagnosis: Patient admitted 06/14/21 for medical management of pulmonary embolis. PT consult ordered for assessment of mobility. PMHX: Aneurysm of infrarenal abdominal aorta CKD (chronic kidney disease) stage 3, GFR 30-59 ml/min COPD (chronic obstructive pulmonary disease) Failure to thrive in adult Fracture of both ankles Hallucinations Hearing loss History of blood transfusion Hx of diabetes mellitus Hx of hyperlipidemia Hypertension Hypothyroidism Low back pain Memory impairment Non-insulin dependent diabetes mellitus Noncompliance with medication regimen Obesity Osteoarthritis of right knee Pain, joint, knee, right Seborrheic keratosis Smoker Urinary tract infection Surgical History History of bilateral tubal ligation History of hernia repair Social History/Home Situation: Patient lives alone in single level apartment with [address]. She walks approx 1/2 mile each day with a straight cane. Equipment Owned/DME: cane Subjective: Fabiola states that she is feeling good. She has no complaints. She denies history of falls. States that she's looking forward to being able to walk. She's been moving around her room on her own since admission. Objective: General Observation: Resting in chair, with no lines. Telemetry in place. Mental Status: A&Ox3 Pain: denies ROM: Right Upper Extremity: Shoulder flexion to 130 degrees. Otherwise, WNL. Left Upper Extremity: Shoulder flexion to 130 degrees. Otherwise, WNL. Right Lower Extremity: Grossly WFL Left Lower Extremity: Grossly WFL Strength: Right Upper Extremity: Shoulder flexion 3-/5. Biceps 4/5. Triceps 4/5. Left Upper Extremity:Shoulder flexion 3-/5. Biceps 4/5. Triceps 4/5. Right Lower Extremity: Hip flexion 5/5. Quads 3/5 or greater (deferred MMT due to knee pain). Ankle DF 5/5 Left Lower Extremity: Hip flexion 5/5. Quads 3/5 or greater (deferred MMT due to knee pain). Ankle DF 5/5 Bed Mobility/Transfers: sit-stand: independent Stand?sit: Independent Bed?chair: Independent with cane Gait: Patient ambulates 150 feet with CGA?supervision. She has minor path deviation noted during ambulation, requiring intermittent CGA. Balance: Static Sitting: Normal Dynamic Sitting: Normal Static Standing: Good Dynamic Standing: Good 4 position balance test: 2/4 Special Tests: Mobility Limitations Standardized Measure [facility] AM-PAC 6 clicks Basic Mobility Inpatient Short Form: Raw Score: 23 CMS Score: 11% deficit Informed Consent/Education: Patient instructed in purpose of PT consult and plan of care. Treatment: Today's session consisted of evaluation, followed by instruction in a therapeutic exercise program. Patient completed sitting and standing lower extremity strengthening activities, as well as balance retraining exercises. Assessment: Patient is a 76 year old female referred to physical therapy services with the diagnosis of pulmonary embolism. Patient presents with clinical signs and symptoms consistent with mobility deficits related to acute medical issues, as demonstrated by the following impairment level findings: 1. Gait impairments 2. Decreased balance as indicated by 4 position balance test Impairments are contributing to the following functional limitations: 1. Gait impairment, with decreased balance noted with use of straight cane 2. Decreased activity tolerance Patient is assessed as Moderate 20368 complexity based on the following: History: Patient is a 76-year-old female admitted for medical management of PE. She is normally active and independent with use of straight cane. Presenting with path deviation and balance deficits, increasing her fall risk. She requires skilled PT intervention for improved lower extremity strength and balance prior to returning to independent living. Complicating factors include anticoagulation, COPD and NIDDM. Examination: Functional limitations as noted above Presentation: Evolving Decision Making: Moderate complexity Goals: Goals X1 week 1. Gait : Patient able to ambulate 300 feet with straight cane without path deviation 2. Stairs patient able to ascend and descend 3 steps with bilateral rails and supervision Plan of Care/Treatment Plan: 1-2x/day, 7 days/week x 1 week. Plan of care has been reviewed with the RETAIL ADVERTISING SALES MANAGER providing the service under Physical Therapy direction. Initiate Physical Therapy intervention for strengthening, bed mobility, transfers, gait, stairs, balance training, use of assistive device. DISCHARGE RECOMMENDATIONS: Home with no equipment needs TREATMENT CODE/TIME: 110?130 ([id number]) Fay Jimenez, PT, DPT [facility]
[2021-06-15] MEDS: Diclofenac 1% Gel 100 GM TUBE TP ×2 (16:39→19:26)
[2021-06-16 01:21] VITALS: PULSE 83
[2021-06-16 04:43] VITALS: BP 123/73; PULSE 77; RESP 20; TEMP 36.9; O2SAT 91
[2021-06-16] MEDS: Levothyroxine 125 MCG TAB PO (06:48)
[2021-06-16 07:01] VITALS: PULSE 81
[2021-06-16] MEDS: Pantoprazole 40 MG TABCR PO (07:32)
[2021-06-16 07:54] VITALS: BP 128/79; PULSE 89; RESP 16; TEMP 37; O2SAT 90
[2021-06-16] MEDS: Umeclidinium 7 CAP INHALER IH (08:09)
[2021-06-16] MEDS: Pravastatin 20 MG TAB PO (08:35)
[2021-06-16] MEDS: Acetaminophen 325 MG TAB 650 MG PO (08:35)
[2021-06-16] MEDS: Docusate Sodium 100 MG CAP PO (08:36)
[2021-06-16] MEDS: amLODIPine 2.5 MG TAB PO (08:36)
[2021-06-16] MEDS: Apixaban 5 MG TAB 10 MG PO (08:36)
[2021-06-16] MEDS: Furosemide 20 MG TAB PO (08:36)
[2021-06-16 09:34] VITALS: PULSE 106
[2021-06-16] MEDS: Nystatin POWDER 60 GM JAR TP (09:45)
[2021-06-16] MEDS: Diclofenac 1% Gel 100 GM TUBE TP ×2 (09:45→12:38)
[2021-06-16] MEDS: Normal Saline Flush 10 ML SYR IVP (10:06)
--- NOTE | 2021-06-16 12:29 | DSE_ITS ---
Date of service: 06/16/21 Time of Service: 12:30 DS: Diagnosis Discharge Diagnosis (1) Pulmonary embolism: Start date: 06/16/21 Start time: 12:30 Status: Acute Asessment and Plan: Patient presented to [facility] with 2 days of SOB, found to have PE by CTA: This study is positive for left lung pulmonary emboli branches to both lingular and left lower lobe. There is no evidence of pulmonary infarction or pleural effusion. No shift of the interventricular septum in the heart. Placed on eliquis. Echo with no heart strain. Not requiring oxygen feels well. She will be discharged home on eliquis PO. with follow to PCP in 1 week. (2) Constipation: Start date: 06/16/21 Start time: 12:34 Status: Chronic Asessment and Plan: Resolved with disimpaction. This is chronic and she has a bowel regimen at home. She needs to follow bowel regimen. Continue (3) COPD (chronic obstructive pulmonary disease): Start date: 06/16/21 Start time: 12:35 Status: Chronic Asessment and Plan: not exacerbated at this time. Continue home meds. (4) Hypothyroidism: Start date: 06/16/21 Start time: 12:36 Status: Chronic Asessment and Plan: Continue levothyroxine above discussed with Dr. Schaffer. (5) Non-insulin dependent diabetes mellitus: Status: Chronic Discharge Plan Disposition Patient Disposition: HOME Condition: Stable Discharge Details Reason For Visit: PE,Constipation Admit Date/Time: 06/15/21 02:47 Admit Provider: Sandeep Blanton Attending Provider: Sandeep Blanton Primary Care Provider: Kathleen Azevedo Hospital Course Hospital Course: 76 y.o female with PMH of COPD, Constipation, OA, DM, Hypothyroidism, presented to ED with c/o constipation, unable to have a bowel movement she was manually disempacted and given enema. CTA in the ED incidentally revealed PE in left lung. She did not require oxygen, HR normal, she was asked to be admitted to m/s for further management. She was placed on eliquis. Today she denies pain. Echo with no heart strain. EF 52%, RVSP 28.9. She is no longer constipated, will continue bowel regimen at home. She is being discharged home on eliquis and 1 week follow up with PCP. She denies CP, SOB, N/V/D. Home Meds and New Rx's Prescriptions: New Eliquis 5 mg tablet 5 mg PO BID Qty: 71 RF: 0 Continued Flovent HFA 220 mcg/actuation HFA aerosol inhaler 2 puff INHALATION BID RF: 0 ipratropium-albuterol 0.5 mg-3 mg(2.5 mg base)/3 mL Solution For Nebulization 3 ml UPD Q4H PRN PRN (Reason: shortness of breath or wheezing) Qty: 180 RF: 0 docusate sodium [Colace] 100 mg Capsule 100 mg PO BID Qty: 60 RF: 0 guaifenesin [Mucinex] 600 mg Tablet Extended Release 12hr 600 mg PO BID PRN PRN (Reason: cough) Qty: 20 RF: 0 pantoprazole 40 mg Tablet,Delayed Release (Dr/Ec) 40 mg PO DAILY@0730 Qty: 30 RF: 0 sennosides [Senokot] 8.6 mg Tablet 8.6 mg PO BID Qty: 60 RF: 0 albuterol sulfate 2.5 mg /3 mL (0.083 %) Solution For Nebulization 2.5 mg inhalation QID PRNRF: 0 acetaminophen [Mapap Arthritis Pain] 650 mg Tablet Extended Release 650 mg PO BID RF: 0 furosemide 20 mg Tablet 20 mg PO DAILY RF: 0 levalbuterol tartrate 45 mcg/actuation Hfa Aerosol Inhaler 2 puff INHALATION BID PRNRF: 0 Incruse Ellipta 62.5 mcg/actuation Blister With Device 1 inh INHALATION DAILY RF: 0 amlodipine 2.5 mg tablet 2.5 mg PO DAILY RF: 0 aspirin 81 mg tablet,delayed release (DR/EC) 81 mg PO DAILY RF: 0 levothyroxine 125 mcg tablet 125 mcg PO DAILY RF: 0 pravastatin 20 mg tablet 20 mg PO DAILY RF: 0 atorvastatin 80 mg tablet 80 mg RF: 0 Discharge Instructions Instructions: Apixaban (By mouth), Pulmonary Embolism (DC), Constipation (ED) Additional Instructions: Take a dose of apixaban tonight 10 mg then continue to take 10 mg for the next 5 days twice a day, then decrease down to 5 mg twice a day Follow up with your PCP in 1 week Take senokot and colace as needed to avoid constipation. You can also take prune juice and make sure to drink plenty of water. Stand Alone Forms: Nursing Discharge Form Referrals: Kathleen Azevedo [Primary Care Provider] - 06/21/21 9:15 am Activity:: Activity as Tolerated Equipment/Supplies:: No Equipment Needed Diet:: Carb Counting Discharge Orders Discharge Orders: Discharge Order (Routine); Ordered 06/16/21 Ordered By: Stefani Brothers DS: Summary Time Spent with Patient providing and/or coordinating discharge services: Less than 30 minutes Status at Discharge Functional status at discharge: independent ambulation Overall status at discharge: patient is progressing back to baseline Mental Status: mental status grossly normal Speech and Movement: speech and movement normal Mood: congruent mood Affect: normal affect Exam Const General: cooperative, no acute distress and well developed Nutritional Appearance: obese Orientation: alert, awake and oriented x3 HENMT Head: normal to inspection Ears: hearing grossly normal bilaterally General nose exam: external nose normal Face and sinus: normal facial exam Mouth: oral mucosae normal Eyes General: appearance normal, both eyes and all related structures Alignment and Position: alignment normal Periorbital: periorbital findings normal Eyelids: eyelids normal Conjunctivae: conjunctivae normal Sclera: sclerae normal Cornea: corneas normal Pupils: PERRL EOM: EOM intact bilaterally Neck Neck: normal visual inspection, full ROM, no lymphadenopathy, trachea midline, supple, no lymphadenopathy noted and no JVD Thyroid: thyroid normal Carotids: normal carotid upstroke Lymphatic: no lymphadenopathy noted Chest Chest: normal inspection of the chest and normal palpation of entire chest wall Resp Effort & Inspection: normal respiratory effort and able to speak in complete sentences Auscultation: clear to auscultation bilaterally and diminished lung sounds bilaterally Percussion: percussion normal Cardio Jugular venous pressure: no JVD Palpation: normal PMI Rate: regular rate Rhythm: regular rhythm Heart Sounds: S1 normal, S2 normal and normal, physiologic split S2 Bruits: no abdominal aortic bruits and no carotid bruits Pulses: brachial pulses present, radial pulses present and normal peripheral pulses GI Inspection: obesity and scar (healed midline laparotomy scar) Palpation: soft and no hepatosplenomegaly Percussion: normal to percussion Auscultation: normal bowel sounds Rectal Exam - female: other (deferred and done by ER attending) Back/Spine/Pelvis Back: no CVA tenderness Cervical Spine: cervical ROM normal Thoracic/Lumbar Spine: thoracic and lumbar spine normal to inspection Skin Rashes: rashes noted (bilateral tinea under breasts and inguinal areas) Neuro General: patient alert, patient awake and patient oriented x3 Cranial Nerves: CN's II-XI intact bilaterally Cognition: normal cognition Speech: speech normal Motor: muscle tone normal throughout and strength 5/5 throughout Extrem Right lower extremity: knee Details: tenderness and swelling Psych Appearance: grossly normal Mental Status: mental status grossly normal Speech and Movement: speech and movement normal Mood: congruent mood Affect: normal affect Attitude: cooperative Thought Process: normal Thought Content: normal Insight: insight good Judgment: judgment good DS: Data Vitals/I&O Vitals and I&O: Vital Signs Temperature 37.0 C 06/16/21 07:54 Temperature Source Tympanic 06/16/21 07:54 Pulse 106 H 06/16/21 09:34 Pulse Rhythm Regular 06/16/21 09:45 Respiratory Rate 16 06/16/21 07:54 Respiratory Effort Non-Labored 06/16/21 09:45 Respiratory Depth Normal 06/16/21 09:45 Respiratory Pattern Normal 06/16/21 09:45 Blood Pressure 128/79 06/16/21 07:54 Blood Pressure Mean 119 06/14/21 23:31 Pulse Oximetry 90 L 06/16/21 07:54 Oxygen Delivery Method Room Air 06/16/21 07:54 Oxygen Flow Rate 0 06/16/21 07:54 Pain Level 10 06/16/21 08:35 Comment 06/15/21 03:33 Intake & Output 06/15/21 06/16/21 06/16/21 23:59 11:59 23:59 Intake Total 720 / 1170 250 / 250 Output Total 500 / 1350 350 / 350 Balance 220 / -180 -100 / -100 Intake: IV Oral 720 / 1170 240 / 240 Output: Urine 500 / 1350 350 / 350 Other: Urine Color Yellow Pale Yellow Urine Appearance Clear Clear Urine Odor Normal Normal Voiding Methods Toilet Toilet Data Completed and Pending Completed studies during hospitalization [Text1]: This study is positive for left lung pulmonary emboli branches to both lingular and left lower lobe. There is no evidence of pulmonary infarction or pleural effusion. No shift of the interventricular septum in the heart. Exam(s) PROCEDURE INFORMATION: Exam: CTA Chest With Contrast Exam date and time: 06/15/2021 11:59 PM Age: 76 years old Clinical indication: Other: Abdominal pain, recent aaa repair, constipation; Prior surgery; Surgery date: 1-6 months; Surgery type: Aaa repair 6 weeks ago TECHNIQUE: Imaging protocol: Computed tomographic angiography of the chest with contrast. 3D rendering (Not supervised by radiologist): MIP and/or 3D reconstructed images were created by the technologist. Radiation optimization: All CT scans at this facility use at least one of these dose optimization techniques: automated exposure con the trol; mA and/or kV adjustment per patient size (includes targeted exams where dose is matched to clinical indication); or iterative reconstruction. Contrast material: OMNIPAQUE 350; Contrast volume: 100 ml; Contrast route: INTRAVENOUS (IV); COMPARISON: CT CHEST LUNG CANCER SCREEN 11/25/2019 1:07 PM FINDINGS: Pulmonary arteries: There is a pulmonary embolus at the bifurcation of the left branch pulmonary artery extending to right lower lobe and lingular branches. It is an embolus to hilar branches with a moderate clot burden. Aorta: There is no thoracic aortic aneurysm or dissection. Lungs: There are moderate centrilobular and paraseptal emphysematous changes. There are mild bibasilar atelectatic changes. Pleural spaces: Unremarkable. No pneumothorax. No pleural effusion. Heart: No cardiomegaly. The RV/LV ratio is 1.3. Lymph nodes: No enlarged mediastinal or hilar lymph nodes are seen. Bones/joints: There is segmental ossification of the anterior longitudinal ligament consistent with benign diffuse idiopathic skeletal hyperostosis (DISH). Soft tissues: Unremarkable. IMPRESSION: 1. Positive for pulmonary embolus to hilar branches of the lingula and left lower lobe. 2. The RV/LV ratio is consistent with left ventricular strain. 3. No thoracic aortic aneurysm or dissection. 4. Moderate centrilobular and paraseptal emphysematous changes. No consolidation. THIS REPORT CONTAINS FINDINGS THAT MAY BE CRITICAL TO PATIENT CARE. The findings were verbally communicated via telephone conference with CHAPO DESAI at 2:11 AM EDT on 06/15/2021. The findings were acknowledged and understood. PROCEDURE INFORMATION: Exam: CTA Abdomen and Pelvis With Contrast Exam date and time: 06/15/2021 11:59 PM Age: 76 years old Clinical indication: Other: Abdominal pain, recent aaa repair, constipation; Prior surgery; Surgery date: 1-6 months; Surgery type: Aaa repair 6 weeks ago TECHNIQUE: Imaging protocol: Computed tomographic angiography of the abdomen and pelvis with contrast material. 3D rendering (Not supervised by radiologist): MIP and/or 3D reconstructed images were created by the technologist. Radiation optimization: All CT scans at this facility use at least one of these dose optimization techniques: automated exposure control; mA and/or kV adjustment per patient size (includes targeted exams where dose is matched to clinical indication); or iterative reconstruction. Contrast material: OMNIPAQUE 350; Contrast route: INTRAVENOUS (IV); COMPARISON: CT CHEST LUNG CANCER SCREEN 11/25/2019 1:07 PM FINDINGS: Lungs: There are mild atelectatic changes at the lung bases. Aorta: There has been end-to-end surgical repair of an abdominal aortic aneurysm. The anastomosis is seen at the proximal infrarenal level. The graft extends to above the aortic bifurcation. The suprarenal abdominal aorta measures 2.6 cm in transverse dimension. The mid infrarenal aortic graft is 1.7 cm in diameter. There is no evidence of anastomotic leakage. There is mild narrowing at the anastomosis. Celiac trunk and mesenteric arteries: There are moderate stenosis at the origins of the celiac trunk and SMA. The CAPRICE is occluded at its origin and fills via collaterals. Renal arteries: There is moderate proximal stenosis of the right main renal artery. There is mild proximal stenosis of the left main renal artery with mild tortuosity. Right iliac arteries: There is scattered atherosclerotic plaques and ectasia of the right common and external iliac arteries with a mild proximal stenosis. Left iliac arteries: Scattered atherosclerotic plaques in the tail the a of the left common and external iliac arteries. Liver: There is mild hepatomegaly. No enhancing liver masses identified. Gallbladder and bile ducts: Multiple small layering gallstones are present. There is no evidence of biliary ductal dilation. Pancreas: No pancreatic mass is seen. There is no ductal dilatatioin. Spleen: Normal in size. Adrenal glands: There are no adrenal masses. Kidneys and ureters: There are no enhancing renal masses. No hydronephrosis or obstructing calculi. Stomach and bowel: There is mild diverticulosis in the descending colon and sigmoid without evidence of acute diverticulitis. There is no evidence of small bowel or colonic obstruction.There is mild fecal stasis throughout the colon. Appendix: No evidence of appendicitis. Intraperitoneal space: There is no free intraperitoneal air. No ascites. No fluid collection is seen. Lymph nodes: No enlarged retroperitoneal or mesenteric lymph nodes. Urinary bladder: The bladder shows a normal contour. Reproductive: Unremarkable as visualized. Bones/joints: Degenerative disc disease and vacuum disc at L4-L5 and L5-S1. Soft tissues: There is a healed of the ventral abdominal and pelvic surgical scar. IMPRESSION: 1. Status post surgical end-to-end aortic graft placement for aneurysm. 2. There is a mild stenosis at the proximal anastomosis of less than 50%. No evidence of leakage or complications. 3. Mild colonic fecal stasis. 4. Mild sigmoid diverticulosis without acute diverticulitis. 5. Hepatomegaly. 6. Cholelithiasis without acute cholecystitis. EXAM: Comprehensive 2D, Doppler, and color-flow Echocardiogram Patient Location: In-Patient Room/Bed: [facility] [place] Indications: PE, Evaluate for RV strain, COPD Other Information Study Quality: Fair. Technically limited study due to body habitus. Conclusion Left Ventricle : The left ventricle is normal size. Left ventricular systolic function is low normal. There is normal left ventricular wall thickness. There is normal LV segmental wall motion. The left ventricular diastolic function is normal. LVEF is 52%. Right Ventricle : Right ventricle is not well visualized. Right ventricular systolic function could not be assessed. The RVSP is28.9 mmHg. Atria : The left atrium size is normal. The right atrium size is normal. Valves: There are no hemodynamically significant valvular lesions. Great Vessels : The aortic root is normal in size. Ascending aorta is not well visualized. Aortic arch is not well visualized. IVC is normal in size and collapses >50% with inspiration. Labs on day of discharge: Labs from last 24 hours 06/16/21 12:10 Free T4 Pending [facility] Medical History Aneurysm of infrarenal abdominal aorta CKD (chronic kidney disease) stage 3, GFR 30-59 ml/min COPD (chronic obstructive pulmonary disease) Failure to thrive in adult Fracture of both ankles Hallucinations Hearing loss History of blood transfusion Hx of diabetes mellitus Hx of hyperlipidemia Hypertension Hypothyroidism Low back pain Memory impairment Non-insulin dependent diabetes mellitus Noncompliance with medication regimen Obesity Osteoarthritis of right knee Pain, joint, knee, right Seborrheic keratosis Smoker Urinary tract infection Surgical History History of bilateral tubal ligation History of hernia repair Family History Father Diabetes Social History Smoking/Tobacco Use Status: Current every day Tobacco Type: cigarettes Years smoked: 15 Tobacco: How many years used: 15 Counseling given: provider counseling and support medications Smoking risk assessment performed?: Yes Alcohol Intake: never Drug use: Never Substance use type: does not use Household members: none Housing: apartment Number of Children: 3 number of grandchildren: 1 What is your relationship status?: Panel score (0-1 are the most socially isolated patients): 0 What type of physical activity do you participate in: walking Seatbelt use: always Do you feel safe at home: Yes Do you feel safe in your relationship?: Yes
--- NOTE | 2021-06-16 12:41 | PT.INDS ---
Date of service: 06/16/21 Time of Service: 10:15 PT Notes Visit Reasons: PE,Constipation Date: 06/16/21 Treatment Dates: 06/15/21 - 06/16/21 Referring Doctor: Dr. Schaffer PT Orders: PT CONSULT: limited ability to ambulate Precautions: standard Patient Profile/Admitting Diagnosis: Patient admitted 06/14/21 for medical management of pulmonary embolis. She participated in 2 sessions of PT intervention, with gains and safety and activity tolerance, sufficient to allow for safe transition back to independent living. PMHX: Aneurysm of infrarenal abdominal aorta CKD (chronic kidney disease) stage 3, GFR 30-59 ml/min COPD (chronic obstructive pulmonary disease) Failure to thrive in adult Fracture of both ankles Hallucinations Hearing loss History of blood transfusion Hx of diabetes mellitus Hx of hyperlipidemia Hypertension Hypothyroidism Low back pain Memory impairment Non-insulin dependent diabetes mellitus Noncompliance with medication regimen Obesity Osteoarthritis of right knee Pain, joint, knee, right Seborrheic keratosis Smoker Urinary tract infection Surgical History History of bilateral tubal ligation History of hernia repair Social History/Home Situation: Patient lives alone in single level apartment with [address]. She walks approx 1/2 mile each day with a straight cane. Equipment Owned/DME: cane Subjective: Fabiola states that she is feeling good today. She denies soreness after her last session. Objective: General Observation: Resting in chair, with no lines. Mental Status: A&Ox3 Pain: Chronic right knee pain ROM: Right Upper Extremity: Shoulder flexion to 130 degrees. Otherwise, WNL. Left Upper Extremity: Shoulder flexion to 130 degrees. Otherwise, WNL. Right Lower Extremity: Grossly WFL Left Lower Extremity: Grossly WFL Strength: Right Upper Extremity: Shoulder flexion 3-/5. Biceps 4/5. Triceps 4/5. Left Upper Extremity:Shoulder flexion 3-/5. Biceps 4/5. Triceps 4/5. Right Lower Extremity: Hip flexion 5/5. Quads 3/5 or greater (deferred MMT due to knee pain). Ankle DF 5/5 Left Lower Extremity: Hip flexion 5/5. Quads 3/5 or greater (deferred MMT due to knee pain). Ankle DF 5/5 Bed Mobility/Transfers: sit-stand: independent Stand?sit: Independent Bed?chair: Independent with cane Gait: Patient ambulates 200 feet with CGA?supervision. She has minor path deviation noted x 1 during ambulation, requiring brief CGA. Balance: Static Sitting: Normal Dynamic Sitting: Normal Static Standing: Good Dynamic Standing: Good Informed Consent/Education: Patient instructed in purpose of PT consult and plan of care. Treatment: Today's session consisted of re-evaluation, followed by instruction in a therapeutic exercise program. Patient completed sitting and standing lower extremity strengthening activities, as well as balance retraining exercises. Please see flow sheet for specifics. Assessment: Patient is a 76 year old female referred to physical therapy services with the diagnosis of pulmonary embolism. She participated in 2 sessions of skilled PT intervention over the course of 2 days. She demonstrates improvements in safety and mobility, and is appropriate for discharge from PT services in acute care setting, with recommendation for follow-up with outpatient services for balance retraining. Goals: Goals X1 week 1. Gait : Patient able to ambulate 300 feet with straight cane without path deviation (progressing toward) 2. Stairs patient able to ascend and descend 3 steps with bilateral rails and supervision (not met) Plan of Care/Treatment Plan: D/C from PT in acute care setting. DISCHARGE RECOMMENDATIONS: Home; outpatient PT TREATMENT CODE/TIME: 10:15?10:30 ([id number]) Fay Jimenez, PT, DPT [facility]
[2021-06-16 13:14] LABS: FREE T4 1.46 ng/dL (0.76-1.46)
--- NOTE | 2021-06-16 14:10 | PDOC.CMDIS ---
- If Service Date Differs Date of service: 06/16/21 Time of Service: 14:11 LACE Index Scoring Tool - Questions: Length of Stay (in days): 1 Acuity (Admit via E.D.?): Yes Comorbidities: Diabetes w/o Complication, Chronic Pulmonary Disease, Liver or Renal Disease E.D. Visits: 4 - Answers: Total Score: 13 Risk of Readmission: High Risk Care Management Discharge Reason for Hospitalization: pulmonary embolus, COPD Discharge Plan: Fabiola will be discharged home with no new services. She will follow up with her PCP and discharge plan of care and transport with RCT coordinated by CM. Patient/Family Education Needs: Review of discharge instructions, medications, activity, limitations, Ask Me Three
== END 2021-06-16 13:47 | disposition home or self-care (01) ==
LOC: ER 06-15 03:19 → MS 06-15 03:24
PROVIDERS: Nurse Practitioner Family; Admitting Provider Internal Medicine; Emergency Provider Student in an Organized Health Care Education/Training Program; PCP Nurse Practitioner; Visit Provider Internal Medicine
DX: I26.94 Multiple subsegmental thrombotic pulmonary emboli without acute cor pulmonale (principal); J44.9 Chronic obstructive pulmonary disease, unspecified; K59.00 Constipation, unspecified; N18.30 Chronic kidney disease, stage 3 unspecified; E11.22 Type 2 diabetes mellitus with diabetic chronic kidney disease; I12.9 Hypertensive chronic kidney disease with stage 1 through stage 4 chronic kidney disease, or unspecified chronic kidney disease; E78.5 Hyperlipidemia, unspecified; M54.5 Low back pain; F17.210 Nicotine dependence, cigarettes, uncomplicated; Z91.128 Patient's intentional underdosing of medication regimen for other reason; Z20.822 Contact with and (suspected) exposure to COVID-19; E03.9 Hypothyroidism, unspecified
CPT/HCPCS: 36415; 74177; 80053; 87635; 93005; 93306; 97110; 97162; 99285; 83036; 83880; 84439; 84443; 84484; 85025; 85610; 85730; 93010; 99217; 99220; G0378; J3490

== ENCOUNTER 2021-07-22 19:06 | Observation (INO) | payer OTHER, MEDICAID, SELFPAY ==
[2021-07-22] VITALS (39 sets, daily range): BP systolic 132–156; BP diastolic 53–79; PULSE 78–95; RESP 15–23; TEMP 36.4; O2SAT 84–96
--- NOTE | 2021-07-22 19:15 | RT.EKG_ITS ---
APPROVED REPORT Exam: Resting ECG Reason for Exam: weakness Patient Location: E HR:92 bpm ECG Measurements Heart Rate 92 AXIS MA 158 P 73 QRSd 88 QRS -33 QT 384 T 66 QTc 474 Conclusion Sinus rhythm...normal P axis, V-rate 60- 99 Left axis deviation...QRS axis (-30,-90) Physician: no stemi
[2021-07-22] MEDS: Lactated Ringers 500 ML IV ×2 (19:41→22:20)
--- NOTE | 2021-07-22 19:51 | NUR.NOTE ---
Lab called for venipuncture assistance.Nursing Note:
--- NOTE | 2021-07-22 20:14 | NUR.NOTE ---
Lab attempts venipuncture x1 without success. Patient moves and has trouble holding still.Nursing Note:
--- NOTE | 2021-07-22 20:18 | ED.GENADUL_ITS ---
Discharge Plan Discharge Details Chief Complaint: Nausea/Vomit/Diar Primary Care Provider: Kathleen Azevedo ED Provider: Alem Kellogg Home Meds and New Rx's Prescriptions: No Action Flovent HFA 220 mcg/actuation HFA aerosol inhaler 2 puff INHALATION BID RF: 0 ipratropium-albuterol 0.5 mg-3 mg(2.5 mg base)/3 mL Solution For Nebulization 3 ml UPD Q4H PRN PRN (Reason: shortness of breath or wheezing) Qty: 180 RF: 0 docusate sodium [Colace] 100 mg Capsule 100 mg PO BID Qty: 60 RF: 0 guaifenesin [Mucinex] 600 mg Tablet Extended Release 12hr 600 mg PO BID PRN PRN (Reason: cough) Qty: 20 RF: 0 pantoprazole 40 mg Tablet,Delayed Release (Dr/Ec) 40 mg PO DAILY@0730 Qty: 30 RF: 0 sennosides [Senokot] 8.6 mg Tablet 8.6 mg PO BID Qty: 60 RF: 0 albuterol sulfate 2.5 mg /3 mL (0.083 %) Solution For Nebulization 2.5 mg inhalation QID PRNRF: 0 acetaminophen [Mapap Arthritis Pain] 650 mg Tablet Extended Release 650 mg PO BID RF: 0 furosemide 20 mg Tablet 20 mg PO DAILY RF: 0 levalbuterol tartrate 45 mcg/actuation Hfa Aerosol Inhaler 2 puff INHALATION BID PRNRF: 0 Incruse Ellipta 62.5 mcg/actuation Blister With Device 1 inh INHALATION DAILY RF: 0 amlodipine 2.5 mg tablet 2.5 mg PO DAILY RF: 0 aspirin 81 mg tablet,delayed release (DR/EC) 81 mg PO DAILY RF: 0 levothyroxine 125 mcg tablet 125 mcg PO DAILY RF: 0 pravastatin 20 mg tablet 20 mg PO DAILY RF: 0 atorvastatin 80 mg tablet 80 mg PO DAILY RF: 0 Eliquis 5 mg tablet 5 mg PO BID Qty: 71 RF: 0 Medical Decision Making Patient is persistently lightheaded, your labs are reassuring, BUN is 32, consistent with prior, creatinine 1.1, consistent with prior Electrolyte stable Urinalysis does not show evidence of infection Pending stool sample at this time Given 1 L of normal saline, Salo Ram, QTC 475, will follow up on additional Zofran Attempt made to ambulate and orthostatics obtained, blood pressure went from 156/46-130 8/37 on standing, orthostatics essentially negative, however patient is symptomatic and I think she will benefit from overnight admission given that she lives independently Case discussed with Dr. Maldonado who is willing to admit patient Medical Records Medical records reviewed: Yes I reviewed the patient's medical records. Lab Data Lab results reviewed: Yes I reviewed the patient's lab results. ECG Data Prior ECG tracings: available for review HPI General Mode of arrival: ambulatory . Date/Time Provider Initiated Documentation: 07/22/21 19:13 . Limitations to Documentation: no limitations . Information obtained by: patient . HPI Narrative: This 76-year-old female with history of hypothyroidism, diabetes, constipation, pulmonary embolism presents with report of nausea, vomiting, diarrhea. Denies any chest pain or shortness of breath. Feels lightheaded and weak, predominantly with standing. Denies any urinary complaints. Had 3 episodes of nausea today with 3 episodes of vomiting. She also had 3 episodes of diarrhea. She denies any new medications or recent antibiotics. She denies known sick contacts. She denies any fever or chills. She denies any blood in vomitus or stool. Related Data Home Medications Medication Instructions Recorded Confirmed amlodipine 2.5 mg PO DAILY 09/22/20 07/22/21 aspirin 81 mg PO DAILY 09/22/20 07/22/21 levothyroxine 125 mcg PO DAILY 09/22/20 07/22/21 pravastatin 20 mg PO DAILY 09/22/20 07/22/21 Flovent HFA 2 puff INHALATION BID 10/04/20 07/22/21 docusate sodium [Colace] 100 mg PO BID #60 cap 10/07/20 07/22/21 guaifenesin [Mucinex] 600 mg PO BID PRN PRN #20 tab 10/07/20 07/22/21 ipratropium-albuterol 3 ml UPD Q4H PRN PRN #180 ml 10/07/20 07/22/21 pantoprazole 40 mg PO DAILY@0730 #30 tab 10/07/20 07/22/21 sennosides [Senokot] 8.6 mg PO BID #60 tab 10/07/20 07/22/21 Incruse Ellipta 1 inh INHALATION DAILY 01/01/21 07/22/21 acetaminophen [Mapap Arthritis 650 mg PO BID 01/01/21 07/22/21 Pain] albuterol sulfate 2.5 mg INHALATION QID PRN 01/01/21 07/22/21 furosemide 20 mg PO DAILY 01/01/21 07/22/21 levalbuterol tartrate 2 puff INHALATION BID PRN 01/01/21 07/22/21 atorvastatin 80 mg PO DAILY 06/15/21 07/22/21 apixaban [Eliquis] 5 mg PO BID #71 tab 06/16/21 07/22/21 Previous Rx's Medication Instructions Recorded docusate sodium [Colace] 100 mg PO BID #60 cap 10/07/20 guaifenesin [Mucinex] 600 mg PO BID PRN PRN #20 tab 10/07/20 ipratropium-albuterol 3 ml UPD Q4H PRN PRN #180 ml 10/07/20 pantoprazole 40 mg PO DAILY@0730 #30 tab 10/07/20 sennosides [Senokot] 8.6 mg PO BID #60 tab 10/07/20 apixaban [Eliquis] 5 mg PO BID #71 tab 06/16/21 Allergies Allergy/AdvReac Type Severity Reaction Status Date / Time Penicillins Allergy Intermediate Swelling/Ed Verified 07/22/21 19:21 demond Bees Allergy Uncoded 07/22/21 19:21 General Stated Complaint: Nausea/Vomit/Diar KAYA: 3 Review of Systems All systems reviewed & are unremarkable except as noted in HPI and below PFSH Medical History Aneurysm of infrarenal abdominal aorta CKD (chronic kidney disease) stage 3, GFR 30-59 ml/min COPD (chronic obstructive pulmonary disease) Failure to thrive in adult Fracture of both ankles Hallucinations Hearing loss History of blood transfusion Hx of diabetes mellitus Hx of hyperlipidemia Hypertension Hypothyroidism Low back pain Memory impairment Non-insulin dependent diabetes mellitus Noncompliance with medication regimen Obesity Osteoarthritis of right knee Pain, joint, knee, right Seborrheic keratosis Smoker Urinary tract infection Surgical History History of bilateral tubal ligation History of hernia repair Family History Father Diabetes Social History Smoking/Tobacco Use Status: Current every day Tobacco Type: cigarettes Years smoked: 15 Tobacco: How many years used: 15 Counseling given: provider counseling and support medications Smoking risk assessment performed?: Yes Alcohol Intake: never Drug use: Never Substance use type: does not use Household members: none Housing: apartment Number of Children: 3 number of grandchildren: 1 What is your relationship status?: Panel score (0-1 are the most socially isolated patients): 0 What type of physical activity do you participate in: walking Seatbelt use: always Do you feel safe at home: Yes Do you feel safe in your relationship?: Yes Exam Const General: cooperative and no acute distress HENMT Other: moist mucous membranes Eyes Conjunctivae: conjunctivae normal Chest Chest: normal inspection of the chest Resp Effort & Inspection: normal respiratory effort Cardio Rate: regular rate Rhythm: regular rhythm Other: Distal pulses intact GI Other: Diffuse tenderness with palpation, no rebound or guarding No abdominal bruit or pulsatile mass, no CVA tenderness Skin General skin exam: no rashes or lesions noted and pallor Neuro General: patient alert and patient oriented x3 Extrem Other: 1+ edema to bilateral lower extremities Course Vital Signs Vital signs: Vital Signs Temperature 36.4 C L 07/22/21 19:11 Pulse 88 07/22/21 19:11 Respiratory Rate 20 07/22/21 19:11 Blood Pressure 140/73 07/22/21 19:11 Pulse Oximetry 96 07/22/21 19:11 Temperature 36.4 C L 07/22/21 19:11 Temperature Source Temporal Artery Scan 07/22/21 19:11 Pulse 88 07/22/21 20:02 Pulse 87 07/22/21 20:02 Respiratory Rate 17 07/22/21 20:10 Respiratory Effort Non-Labored 07/22/21 19:24 Blood Pressure 132/54 L 07/22/21 19:50 Blood Pressure Mean 130 07/22/21 20:02 Blood Pressure Position Sitting 07/22/21 19:11 Pulse Oximetry 95 07/22/21 20:02 Oxygen Delivery Method Room Air 07/22/21 19:11 Oxygen Flow Rate 0 07/22/21 19:11 Pain Level 0 07/22/21 19:11 Comment 07/22/21 19:11
[2021-07-22 20:26] LABS: Abs Immature Grans 0.01 10^3/uL (0.0-0.06); Absolute Basophil Count 0.03 10^3/uL (0.0-0.2); Absolute Eosinophil Count 0.33 10^3/uL (0.0-0.7); Absolute Lymphocyte Count 2.07 10^3/uL (1.2-3.4); Absolute Monocyte Count 0.52 10^3/uL (0.1-0.8); Absolute Neutrophil Count 4.09 10^3/uL (1.2-6.7); Basophils % 0.4; Eosinophils % 4.7; HGB 12.1 g/dL (11.2-15.7); Immature Grans % 0.1; Lymphocytes % 29.4; MCH 28.4 pg (27.0-33.0); MCV 91.5 fL (80-95); MPV 11.4 fL (8.0-11.0); Monocytes % 7.4; Nucleated RBC 0 %; Platelet Count 168 10^3/uL (130-400); RBC 4.26 10^6/uL (3.93-5.22); RDW 14.1 % (11.7-14.6); RDW-SD 47.8 fL; WBC 7.05 10^3/uL (4.4-10.8)
[2021-07-22 20:37] LABS: Magnesium 2.1 mg/dL (1.8-2.4)
--- NOTE | 2021-07-22 20:45 | DI.CT_ITS ---
Exam(s) CT ABDOMEN PELVIS W EXAM: CT ABDOMEN PELVIS W CLINICAL HISTORY: abd pain vomiting diarrhea. TECHNIQUE: Imaging Protocol: Axial computed tomography images with coronal and sagittal reformatted images were created and reviewed CONTRAST MATERIAL: Intravenous: Omnipaque 350 Contrast volume:100 ml Oral: yes / no COMPARISON: CT CT THORAX ABD/PEL CTA from 06/15/2021 FINDINGS: ABDOMEN: Lung Bases: Mild atelectasis right lung base. Liver: Normal density. No measurable mass. Gallbladder and biliary tract: Stones versus sludge. No biliary dilatation. No wall thickening or i nflammation. Pancreas: Somewhat atrophic., no abnormal calcifications or inflammatory process. Spleen: Normal. Kidneys: Normal size, contour and axis. No radiodense stones or obstructive uropathy. No masses seen. Adrenal glands: No masses seen. Abdominal Aorta: Abdominal portion non-dilated. Surgical clips around the upper abdominal aorta. At herosclerotic changes with small amount of mural thrombus. Branch vessels grossly patent.. PELVIS: Bladder: No gross wall thickening. No calculi.No focal mass. Bowel: No obstruction or bowel wall thickening. Appendix normal. Prominent diverticulosis without ev idence of diverticulitis. Increased quantity of stool, particularly in the rectum. Peritoneal cavity: No ascites, collection or mesenteric inflammatory response. Bones: Within normal limits for age. Degenerative disc changes and facet degenerative changes. Reproductive organs: Within normal limits. Lymph nodes: Unremarkable. Impression: Diverticulosis. No evidence of diverticulitis. Increased quantity of stool particularly in the rect um. RADIATION DOSE DELIVERED: 1,202.75mGy.cm Total DLP DATA REPOSITORY: All CT scans at this facility are submitted to the National Radiology Data Registry (NRDR) Dose Index Registry (DIR) with the [employer] (A[employer]). RADIATION OPTIMIZATION: All CT scans at this facility use at least one of these dose optimization te chniques: automated exposure control; mA and/or kV adjustment per patient size (includes targeted exa ms where dose is matched to clinical indication); or iterative reconstruction.
[2021-07-22 20:49] LABS: ALT 70 U/L (14-59); AST 42 U/L (15-37); Albumin 3.4 g/dL (3.4-5.0); Alkaline Phosphatase 181 U/L (46-116); Anion Gap 5.1 mmol/L (3-11); BUN 32 mg/dL (7-18); Bilirubin, Total 0.3 mg/dL (0.2-1.0); CO2 29.9 mmol/L (21.0-32.0); CREATININE 1.1 mg/dL (0.55-1.02); Calcium 9.4 mg/dL (8.5-10.1); Chloride 106 mmol/L (98-107); Estimated GFR 48.55 (mL/min/1.73m2); Glucose 101 mg/dL (74-106); Lipase 70 U/L (73-393); Potassium 4.7 mmol/L (3.5-5.1); Sodium 141 mmol/L (136-145); TSH 0.59 uIU/mL (0.36-3.74); Total Protein 7.5 g/dL (6.4-8.2); Troponin I < 0.05 ng/mL (<0.06)
[2021-07-22 21:04] LABS: Bilirubin Negative (Negative); Blood Trace-intact (Negative); Clarity Clear (Clear); Glucose Negative (Negative); Ketones Negative (Negative); Leukocyte Esterase Negative (Negative); Nitrite Negative (Negative); Urobilinogen 0.2 EU/dL (Up TO 0.2); pH 5.5 (5-8)
[2021-07-22] MEDS: Metoclopramide 10 MG/2 ML VIAL 5 MG IVP (21:13)
[2021-07-22 21:14] LABS: Bacteria Few HPF (Negative); C & S Indicated? No/Sq. Contamination; Casts Negative LPF (Negative); Crystals Negative HPF (Negative); Epithelial Cells Moderate HPF (Negative); Mucus Negative (Negative); RBC 0-2 HPF (0-2)
[2021-07-22] MEDS: Omnipaque 350 MG/ML 100 ML BTL IJ (21:26)
--- NOTE | 2021-07-22 22:19 | DI.VRAD_ITS ---
PROCEDURE INFORMATION: Exam: CT Abdomen And Pelvis With Contrast Exam date and time: 07/22/2021 8:47 PM Age: 76 years old Clinical indication: Nausea and vomiting and other: Diarrhea; Patient HX: Abd pain vomiting diarrhea TECHNIQUE: Imaging protocol: Computed tomography of the abdomen and pelvis with contrast. COMPARISON: CT THORAX ABD/PEL CTA 06/15/2021 12:46 AM FINDINGS: Lungs: Mild endobronchial mucus noted in the lower lobes, right greater than left. Liver: Normal. No mass. Gallbladder and bile ducts: Calcified stones layer dependently in the gallbladder. Negative for inflammatory change around the gallbladder. Negative for biliary ductal dilatation. Pancreas: Normal. No ductal dilation. Spleen: Normal. No splenomegaly. Adrenal glands: Normal. No mass. Kidneys and ureters: Normal. No hydronephrosis. Stomach and bowel: Stomach is collapsed. Small bowel is not dilated. Negative for inflammatory changes around the colon. Numerous diverticula are present in the sigmoid colon. Rectum is mildly distended with stool, 6 cm Appendix: Normal appendix. Intraperitoneal space: Unremarkable. No free air. No significant fluid collection. Vasculature: Surgical clips are present around the aorta of near the mesenteric and renal arteries. Negative for aneurysm. Mild calcified plaque. Lymph nodes: Unremarkable. No enlarged lymph nodes. Urinary bladder: Unremarkable as visualized. Reproductive: Unremarkable as visualized. Bones/joints: Negative for compression fracture. Multilevel degenerative disc disease and facet arthropathy present. Soft tissues: Midline abdominal wall scar tissue noted. Negative for dehiscence. Laxity of the abdominal wall noted. IMPRESSION: 1. Negative for bowel obstruction. 2. Distal colonic diverticulosis, without diverticulitis. 3. Cholelithiasis, without cholecystitis. Dictated and Authenticated by: Matthew Vasquez MD. Ordering:ELOY Ferrara MD
[2021-07-22 22:44] LABS: Source Nasal/Nares
--- NOTE | 2021-07-22 22:46 | W.PM.HP.N ---
Date of service: 07/22/21 Time of Service: 22:46 Assessment and Plan Assessment and plan (1) Gastroenteritis: Start date: 07/22/21 Status: Acute Assessment and plan: This is a 76-year-old lady who lives alone presenting to the ED with GI symptoms which appear to be uncomplicated except that she was too weak to ambulate safely. She does have vertiginous symptoms and will be treated for vertigo. She has no nystagmus. She does describe her dizziness as room spinning. Her nausea has resolved and she has had a solid meal late after admission. She did not complain of abdominal pain or persistent diarrhea. Stool evaluation to have been evaluated and are pending. She is on gentle IV hydration and we will advance diet. She does have clinical findings of cholelithiasis with liver function slightly elevated and no abdominal pain or symptoms to suggest acute cholecystitis. Trend liver functions and if continue to be abnormal consider ultrasound of the gallbladder though this may not be available until later in the week. This process does not appear to be acute or problem reason for inpatient evaluation or transfer. With her vertiginous symptoms she will be started on meclizine. Physical therapy should evaluate her. (2) Vertigo: Start date: 07/22/21 Status: Acute Assessment and plan: Start meclizine low-dose 12.5 mg twice daily and 3 times daily as needed. There is no indication for acute imaging at this time with no focal neurological complaints. She denies headache. (3) Unsteady gait when walking: Start date: 07/22/21 Status: Acute Assessment and plan: Patient was unable to ambulate even with a walker in the ED and this may be a combination of vertigo and also deconditioning overall. She does not appear to be in good condition overall with obesity and she appears sedentary. Physical therapy should evaluate with meclizine being given for vertiginous symptoms. (4) Cholelithiasis: Status: Chronic Assessment and plan: Patient does not have cholelithiasis on her problem list and with slightly elevated liver function test that should be trended with further evaluation as an outpatient if warranted. This does not appear to be acute. Qualifiers: Cholelithiasis location: gallbladder Cholecystitis presence: without cholecystitis Biliary obstruction: without biliary obstruction Qualified Code(s): K80.20 - Calculus of gallbladder without cholecystitis without obstruction (5) Diverticulosis: Status: Chronic Assessment and plan: Diverticulosis without diverticulitis on CT of the abdomen. Observation. This probably is not contributing to her acute symptoms. History of Present Illness Narrative: This is a 76-year-old female with history of hypothyroidism, diabetes, constipation, pulmonary embolism presents with report of nausea, vomiting and diarrhea with diarrhea occurring last. She presented on the day of admission with nausea and 3 episodes of vomiting without hematemesis. She also had 3 episodes of watery diarrhea without blood. She also complained of room spinning dizziness which occurred simultaneously with her above symptoms. She denies any headache or focal neurological complaints. She denies any new medications or recent antibiotics. She denies known sick contacts. She denies any upper respiratory symptoms, symptoms or fever with chills. The patient states that she still has some slight dizziness with looking to the side or moving her head even while lying in bed. She feels better with IV hydration and bedrest. She did eat a sandwich without difficulty. Review of Systems Narrative: 13 point review of systems otherwise unrevealing or stable. PENDING SALE TO [facility] Medical History (Updated 07/23/21 @ 07:18 by Armen Maldonado) Aneurysm of infrarenal abdominal aorta Cholelithiasis CKD (chronic kidney disease) stage 3, GFR 30-59 ml/min COPD (chronic obstructive pulmonary disease) Diverticulosis Failure to thrive in adult Fracture of both ankles Hallucinations Hearing loss History of blood transfusion Hx of diabetes mellitus Hx of hyperlipidemia Hypertension Hypothyroidism Low back pain Memory impairment Non-insulin dependent diabetes mellitus Noncompliance with medication regimen Obesity Osteoarthritis of right knee Pain, joint, knee, right Seborrheic keratosis Smoker Urinary tract infection Surgical History History of bilateral tubal ligation History of hernia repair Family History Father Diabetes Social History Smoking/Tobacco Use Status: Current every day Tobacco Type: cigarettes Years smoked: 15 Tobacco: How many years used: 15 Counseling given: provider counseling and support medications Smoking risk assessment performed?: Yes Alcohol Intake: never Drug use: Never Substance use type: does not use Household members: none Housing: apartment Number of Children: 3 number of grandchildren: 1 What is your relationship status?: Panel score (0-1 are the most socially isolated patients): 0 What type of physical activity do you participate in: walking Seatbelt use: always Do you feel safe at home: Yes Do you feel safe in your relationship?: Yes Meds Allergies and Home Medications Allergies Allergy/AdvReac Type Severity Reaction Status Date / Time Penicillins Allergy Intermediate Swelling/Ed Verified 07/22/21 19:21 demond Bees Allergy Uncoded 07/22/21 19:21 Home Medications Medication Instructions Recorded Confirmed Type amlodipine 2.5 mg PO DAILY 09/22/20 07/22/21 History aspirin 81 mg PO DAILY 09/22/20 07/22/21 History levothyroxine 125 mcg PO DAILY 09/22/20 07/22/21 History pravastatin 20 mg PO DAILY 09/22/20 07/22/21 History Flovent HFA 2 puff INHALATION BID 10/04/20 07/22/21 History docusate sodium [Colace] 100 mg PO BID #60 cap 10/07/20 07/22/21 Rx guaifenesin [Mucinex] 600 mg PO BID PRN PRN #20 tab 10/07/20 07/22/21 Rx ipratropium-albuterol 3 ml UPD Q4H PRN PRN #180 ml 10/07/20 07/22/21 Rx pantoprazole 40 mg PO DAILY@0730 #30 tab 10/07/20 07/22/21 Rx sennosides [Senokot] 8.6 mg PO BID #60 tab 10/07/20 07/22/21 Rx Incruse Ellipta 1 inh INHALATION DAILY 01/01/21 07/22/21 History acetaminophen [Mapap Arthritis 650 mg PO BID 01/01/21 07/22/21 History Pain] albuterol sulfate 2.5 mg INHALATION QID PRN 01/01/21 07/22/21 History furosemide 20 mg PO DAILY 01/01/21 07/22/21 History levalbuterol tartrate 2 puff INHALATION BID PRN 01/01/21 07/22/21 History atorvastatin 80 mg PO DAILY 06/15/21 07/22/21 History apixaban [Eliquis] 5 mg PO BID #71 tab 06/16/21 07/22/21 Rx Exam Narrative Exam Narrative: General: Patient appears comfortable lying in bed as long as she does not move her head, she has a flattened affect with poor variation. She does have increased somatic complaints. She is obese. She is alert and oriented to person, place and time. She is in no acute distress. HEENT: Normocephalic, coarsened facial features, eyes with pupils equal and reactive to light symmetrically, extraocular movement intact without nystagmus, sclera anicteric. Oropharynx dry mucosa. Neck: Supple without JVD or auscultated bruits. Back kyphotic without CVA tenderness. Patient cannot sit up for exam. Lungs: Fair aeration and clear to auscultation. Breast: Exam deferred. Heart: Regular rate and rhythm with no murmurs or gallops appreciated. Abdomen: Obese contour, soft nontender to palpation with no palpable hepatosplenomegaly. Bowel sounds positive in all quadrants. No focalizing guarding or palpable masses. Genitalia/rectal: Exam deferred. Extremities: Without pitting edema, clubbing or cyanosis. Joints have decreased range of motion with no acute joint swelling. Peripheral pulses grossly intact. Skin: Pale, warm and dry with decreased turgor. Rough texture. Neuro: Cranial nerves II through XII grossly intact. No focalizing motor deficits. No tremor. Psych: Flattened slightly anxious affect with increased magnetization. No abnormal thought processes. Remote and recent memory appear to be grossly intact. Results Imaging Imaging Studies: Exam: CT Abdomen And Pelvis With Contrast Exam date and time: 07/22/2021 8:47 PM Age: 76 years old Clinical indication: Nausea and vomiting and other: Diarrhea; Patient HX: Abd pain vomiting diarrhea TECHNIQUE: Imaging protocol: Computed tomography of the abdomen and pelvis with contrast. COMPARISON: CT THORAX ABD/PEL CTA 06/15/2021 12:46 AM FINDINGS: Lungs: Mild endobronchial mucus noted in the lower lobes, right greater than left. Liver: Normal. No mass. Gallbladder and bile ducts: Calcified stones layer dependently in the gallbladder. Negative for inflammatory change around the gallbladder. Negative for biliary ductal dilatation. Pancreas: Normal. No ductal dilation. Spleen: Normal. No splenomegaly. Adrenal glands: Normal. No mass. Kidneys and ureters: Normal. No hydronephrosis. Stomach and bowel: Stomach is collapsed. Small bowel is not dilated. Negative for inflammatory changes around the colon. Numerous diverticula are present in the sigmoid colon. Rectum is mildly distended with stool, 6 cm Appendix: Normal appendix. Intraperitoneal space: Unremarkable. No free air. No significant fluid collection. Vasculature: Surgical clips are present around the aorta of near the mesenteric and renal arteries. Negative for aneurysm. Mild calcified plaque. Lymph nodes: Unremarkable. No enlarged lymph nodes. Urinary bladder: Unremarkable as visualized. Reproductive: Unremarkable as visualized. Bones/joints: Negative for compression fracture. Multilevel degenerative disc disease and facet arthropathy present. Soft tissues: Midline abdominal wall scar tissue noted. Negative for dehiscence. Laxity of the abdominal wall noted. IMPRESSION: 1. Negative for bowel obstruction. 2. Distal colonic diverticulosis, without diverticulitis. 3. Cholelithiasis, without cholecystitis. Dictated and Authenticated by: Matthew Vasquez MD. Labs Result diagrams: 07/22/21 20:20 07/22/21 20:20 Labs: Laboratory Results - last 24 hr 07/22/21 07/22/21 07/22/21 20:10 20:20 20:20 WBC RBC Hgb Hct MCV MCH MCHC RDW Plt Count MPV Immature Gran % Neutrophils % Lymphocytes % Monocytes % Eosinophils % Basophils % Nucleated RBC % Absolute Neutrophils Absolute Lymphocytes Absolute Monocytes Absolute Eosinophils Absolute Basophils Sodium 141 Potassium 4.7 Chloride 106 Carbon Dioxide 29.9 Anion Gap 5.1 BUN 32 H Creatinine 1.1 H Estimated GFR/1.73 m2 48.55 Glucose 101 Calcium 9.4 Magnesium 2.1 Total Bilirubin 0.3 AST 42 H ALT 70 H Alkaline Phosphatase 181 H Troponin I < 0.05 Total Protein 7.5 Albumin 3.4 Lipase 70 TSH 0.59 Urine Color Yellow Urine Clarity Clear Urine pH 5.5 Ur Specific [place] 1.020 Urine Protein Negative Urine Ketones Negative Urine Blood Trace-intact H Urine Nitrite Negative Urine Bilirubin Negative Urine Urobilinogen 0.2 Ur Leukocyte Esterase Negative Urine RBC 0-2 Urine WBC 3-5 Ur Epithelial Cells Moderate Urine Crystals Negative Urine Bacteria Few Urine Casts Negative Urine Mucus Negative Ur Culture Indicated? No/Sq. Contamination Urine Glucose Negative COVID-19 Source 07/22/21 07/22/21 20:20 22:40 WBC 7.05 RBC 4.26 Hgb 12.1 Hct 39.0 MCV 91.5 MCH 28.4 MCHC 31.0 L RDW 14.1 Plt Count 168 MPV 11.4 H Immature Gran % 0.1 Neutrophils % 58.0 Lymphocytes % 29.4 Monocytes % 7.4 Eosinophils % 4.7 Basophils % 0.4 Nucleated RBC % 0 Absolute Neutrophils 4.09 Absolute Lymphocytes 2.07 Absolute Monocytes 0.52 Absolute Eosinophils 0.33 Absolute Basophils 0.03 Sodium Potassium Chloride Carbon Dioxide Anion Gap BUN Creatinine Estimated GFR/1.73 m2 Glucose Calcium Magnesium Total Bilirubin AST ALT Alkaline Phosphatase Troponin I Total Protein Albumin Lipase TSH Urine Color Urine Clarity Urine pH Ur Specific [place] Urine Protein Urine Ketones Urine Blood Urine Nitrite Urine Bilirubin Urine Urobilinogen Ur Leukocyte Esterase Urine RBC Urine WBC Ur Epithelial Cells Urine Crystals Urine Bacteria Urine Casts Urine Mucus Ur Culture Indicated? Urine Glucose COVID-19 Source Nasal/Nares Last Vital Signs Temp 36.4 C L 07/22/21 19:11 Pulse 85 07/22/21 22:03 Resp 16 07/22/21 22:10 BP 154/67 H 07/22/21 22:03 Pulse Ox 93 07/22/21 22:10
[2021-07-22 23:42] LABS: COVID-19 PCR Negative (Negative)
[2021-07-23] VITALS (10 sets, daily range): BP systolic 125–148; BP diastolic 64–93; PULSE 81–98; RESP 17–18; TEMP 36–36.6; O2SAT 92–98
--- NOTE | 2021-07-23 00:07 | NUR.NOTE ---
Report to YONY Luis, MedSurgNursing Note:
[2021-07-23] MEDS: Acetaminophen 325 MG TAB 650 MG PO ×2 (02:02→05:59)
[2021-07-23] MEDS: Normal Saline 1,000 ML 100 ML IV ×2 (02:03→12:28)
[2021-07-23] MEDS: Normal Saline Flush 10 ML SYR IVP (02:04)
[2021-07-23] MEDS: Levothyroxine 125 MCG TAB PO (05:59)
[2021-07-23] MEDS: Pantoprazole 40 MG TABCR PO (07:37)
[2021-07-23] MEDS: Apixaban 5 MG TAB PO (07:38)
[2021-07-23] MEDS: amLODIPine 2.5 MG TAB PO (07:38)
[2021-07-23] MEDS: Aspirin E.C. 81 MG TABEC PO (07:38)
[2021-07-23 08:22] LABS: Abs Immature Grans 0.01 10^3/uL (0.0-0.06); Absolute Basophil Count 0.02 10^3/uL (0.0-0.2); Absolute Eosinophil Count 0.29 10^3/uL (0.0-0.7); Absolute Lymphocyte Count 1.27 10^3/uL (1.2-3.4); Absolute Monocyte Count 0.41 10^3/uL (0.1-0.8); Absolute Neutrophil Count 3.49 10^3/uL (1.2-6.7); Basophils % 0.4; Eosinophils % 5.3; HGB 11.5 g/dL (11.2-15.7); Immature Grans % 0.2; Lymphocytes % 23.1; MCH 28.1 pg (27.0-33.0); MCHC 31.1 % (32.0-36.0); MCV 90.5 fL (80-95); MPV 11.2 fL (8.0-11.0); Monocytes % 7.5; Neutrophils % 63.5; Nucleated RBC 0 %; Platelet Count 156 10^3/uL (130-400); RBC 4.09 10^6/uL (3.93-5.22); RDW 14.2 % (11.7-14.6); RDW-SD 47.8 fL; WBC 5.49 10^3/uL (4.4-10.8)
[2021-07-23 08:53] LABS: ALT 62 U/L (14-59); AST 33 U/L (15-37); Albumin 3.1 g/dL (3.4-5.0); Alkaline Phosphatase 166 U/L (46-116); Anion Gap 5.9 mmol/L (3-11); BUN 25 mg/dL (7-18); Bilirubin, Total 0.2 mg/dL (0.2-1.0); CO2 28.1 mmol/L (21.0-32.0); CREATININE 1.1 mg/dL (0.55-1.02); Calcium 8.7 mg/dL (8.5-10.1); Chloride 107 mmol/L (98-107); Estimated GFR 48.55 (mL/min/1.73m2); Glucose 96 mg/dL (74-106); Potassium 4.4 mmol/L (3.5-5.1); Sodium 141 mmol/L (136-145); Total Protein 6.4 g/dL (6.4-8.2)
[2021-07-23] MEDS: Mometasone 220 MCG 14 DOSE INHALER IH (09:12)
[2021-07-23] MEDS: Umeclidinium 7 CAP INHALER IH (09:13)
[2021-07-23] MEDS: diazePAM 2 MG TAB PO (09:39)
--- NOTE | 2021-07-23 09:58 | IN_ITS ---
PT Notes Visit Reasons: GASTROENTERITIS,UNSTEADY GAIT Physical Therapy Inpatient Initial Evaluation Date: 07/23/21 Referring Doctor: Sandeep Blanton PT Orders: PT CONSULT: evaluate and treat for ambulatory dysfunction d/t OA Precautions: Fall. Standard. Patient Profile/Admitting Diagnosis: Cholelithiasis, OA exacerbation PMHX: Medical History Aneurysm of infrarenal abdominal aorta CKD (chronic kidney disease) stage 3, GFR 30-59 ml/min COPD (chronic obstructive pulmonary disease) Failure to thrive in adult Fracture of both ankles Hallucinations Hearing loss History of blood transfusion Hx of diabetes mellitus Hx of hyperlipidemia Hypertension Hypothyroidism Low back pain Memory impairment Non-insulin dependent diabetes mellitus Noncompliance with medication regimen Obesity Osteoarthritis of right knee Pain, joint, knee, right Seborrheic keratosis Smoker Urinary tract infection Surgical History History of bilateral tubal ligation History of hernia repair Social History/Home Situation: Lives alone in a house which pt's reports is very messy. Equipment Owned/DME: Pt has been utilizing a cane, and states that she owns a walker but can't get to it. Subjective: Cleared by nursing to see patient and patient is agreeable to PT. Patient received supine. Objective: General Observation: Pt presents in no acute distress. Mental Status: A&O x3 Pain: 2/10 pain at rest, pt reports she has severe pain with mobility. Vitals: BP: 154/71 seated at EOB HR: 63 SpO2: 99% on RA ROM: Right Upper Extremity: Shoulder Flexion WFL. Shoulder abduction WFL. Elbow flexion WFL. Wrist flexion WFL. Opening and closing of hand WFL. Left Upper Extremity: Shoulder Flexion limited to 90deg of elevation. Shoulder abduction limited to 90deg of elevation. Elbow flexion WFL. Wrist flexion limited to approx 10deg of flexion and extension. Opening and closing of hand WFL. Right Lower Extremity: Hip flexion WFL. Hip abduction WFL. Knee flexion WFL. Ankle dorsiflexion WFL. Ankle plantarflexion WFL. Left Lower Extremity: Hip flexion WFL. Hip abduction WFL. Knee flexion WFL. Ankle dorsiflexion WFL. Ankle plantarflexion WFL. Strength: Right Upper Extremity: Shoulder flexors 4/5. Shoulder abductors 4/5. Elbow flexors 4/5. Elbow extensors 4/5. 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 Left Upper Extremity: Shoulder flexors 3-/5. Shoulder abductors 3-/5. Elbow flexors 4/5. Elbow extensors 4/5. 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 Right Lower Extremity: Hip flexors <3/5. Knee flexors 4/5. Knee extensors 3/5. Ankle dorsiflexors 5/5. Ankle plantarflexors 4/5. Left Lower Extremity: Hip flexors 4/5. Knee flexors 4/5. Knee extensors 4/5. Ankle dorsiflexors 5/5. Ankle plantarflexors 4/5. Sensation: Intact as to pain and pressure on bilateral lower extremities. Bed Mobility/Transfers: Rolling: VA Supine to sit: VA Sit to supine: VA Sit to stand: Min contact assist x1 Stand to sit: Min contact assist x1 Bed to chair: Min contact assist x1 utilizing FWW Chair to bed: Min contact assist x1 utilizing FWW Gait: Ambulated 40ft with min contact assist x1 utilizing FWW Stairs: Ascent/descent 2 stairs of 6 with B rails min contact assist x1 Balance: Static Sitting: VA Dynamic Sitting: VA Static Standing: VA with FWW Dynamic Standing: NT Special Tests: Mobility Limitations Standardized Measure [facility] 6 clicks Basic Mobility Inpatient Short Form: Raw Score: 20 CMS Score: 36% Informed Consent/Education: Patient instructed in purpose of PT consult and plan of care. Assessment: Patient presents with clinical signs and symptoms consistent with current/admitting diagnoses that have resulted to mobility limitations, gait instability, generalized weakness, and impairment of motor control as demonstrated by the following impairment level findings: 1. Decreased strength globally 2. Impaired sitting/standing balance 3. Impaired activity tolerance Impairments are contributing to the following functional limitations: 1. Increased dependence with transfers 2. Inability to safely ambulate without assistive device and physical assistance 3. Increase completion time for mobility ADL performance 4. Increased fall risk 5. Inability to negotiate steps alone safely Patient is assessed as a high complexity based on the following: History: 76 year old female identifying person with impairment level findings, functional limitations, and past medical history as indicated above Examination: Demonstrable impairment in strength, balance, and mobility level with underlying impairments and functional limitations as documented above Presentation: Pt presents with R knee pain exacerbation limiting pt's capacity for completion of ADLs. Decision Making: moderate complexity Goals: Goals x1 week 1. Sit-Stand: independent 2. Stand-Sit: independent 3. Bed-Chair: independent 4. Chair-Bed: independent 5. Independent gait on level surface with use of least restrictive device for at least 50 feet without report of pain nor dyspnea 6. Independent stair negotiation while holding onto bilateral rails for at least 2 steps without report of pain nor dyspnea 7. Independent with home exercise program 8. Good static and dynamic standing balance/tolerance Plan of Care/Treatment Plan: 1-2x/day, 7 days/week x 1 week. Plan of care has been reviewed with the CHILD DEVELOPMENT ASSISTANT providing the service under Physical Therapy direction. Initiate Physical Therapy intervention for strengthening, bed mobility, transfers, gait, stairs, balance training, and use of assistive device. DISCHARGE RECOMMENDATIONS: Based on pt's current mobility status, pt is appropriate for DC to [facility] to received physical therapy services prior to safe return to her home environment. However, pt reports that she is unwilling to be DCed to [facility] - if pt is discharged to her home environment she would be appropriate for HHPT for functional mobility training and fall risk mitigation. TREATMENT CODE/TIME: (45 minutes), [id number] Thank you for the opportunity to participate in the care of this patient.
--- NOTE | 2021-07-23 10:40 | INITIAL_ITS ---
- If Service Date Differs Date of service: 07/23/21 Time of Service: 10:40 Care Management Initial Assess REASON FOR HOSPITALIZATION:: gastroenteritis PAST MEDICAL HISTORY/PAST SURGICAL HISTORY:: Medical History (Updated 07/23/21 @ 07:18 by Armen Maldonado). Aneurysm of infrarenal abdominal aorta. Cholelithiasis. CKD (chronic kidney disease) stage 3, GFR 30-59 ml/min. COPD (chronic obstructive pulmonary disease). Diverticulosis. Failure to thrive in adult. Fracture of both ankles. Hallucinations. Hearing loss. History of blood transfusion. Hx of diabetes mellitus. Hx of hyperlipidemia. Hypertension. Hypothyroidism. Low back pain. Memory impairment. Non-insulin dependent diabetes mellitus. Noncompliance with medication regimen. Obesity. Osteoarthritis of right knee. Pain, joint, knee, right. Seborrheic keratosis. Smoker. Urinary tract infection. Surgical History . History of bilateral tubal ligation. History of hernia repair PREVIOUS FUNCTIONAL STATUS/SOCIAL/FAMILY SUPPORTS:: Fabiola lives alone in an apartment in [facility]. She receives Meals on Wheels and uses [facility] for transportation but receives no other home services. Fabiola has 3 sons; one lives in [place], one lives in [place] and the third lives in [place]. She also has one granddaughter in [place]. Fabiola stated that she does have friends in the area who help her out. The son who lives in [place], one of her twins, works a lot and she does not get to see him often. CURRENT FUNCTIONAL STATUS:: Fabiola was sitting up in a chair when CM met with her. She stated that she is feeling much better and that the nausea is gone. She did state that she is a bit dizzy and the provider has addressed this with medication ADVANCE DIRECTIVES:: none Has patient been provided with info about the portal/API?: Yes Did the patient sign up for the portal?: No CODE STATUS:: Full Code INSURANCE COVERAGE / FINANCIAL ISSUES:: [employer] (MCR replacement) CURRENT HOME/COMMUNITY SERVICES/EQUIPMENT:: cane PRIMARY CARE PHYSICIAN:: Kathleen Azevedo POTENTIAL DISCHARGE NEEDS:: Follow up with PCP and discharge plan of care PATIENT/FAMILY EDUCATION NEEDS:: Review of discharge instructions, limitations, follow up plan, medications, activity, Ask Me Three TRANSPORTATION:: RCT PLAN:: Fabiola will juan be discharged home with no new services. She will follow up with her community providers and transport with RCT coordinated by CM. CM will continue to follow and assess for discharge planning issues.
--- NOTE | 2021-07-23 15:14 | W.PM.DS.N ---
Date of service: 07/23/21 Time of Service: 15:15 DS: Diagnosis Discharge Diagnosis (1) Vertigo: Start date: 07/23/21 Start time: 15:16 Status: Acute Asessment and Plan: She is showing positive signs of vertigo. She has horizontal nystagmus; states the room is spinning when she is up, left ear is worse and sometimes room closing in. Orthostatics were normal. PT recommends OP PT to continue working on vertigo symptoms. Will give valium for vertigo also can f/u with ENT if this continues (2) Gastroenteritis: Start date: 07/23/21 Start time: 15:15 Status: Resolved Asessment and Plan: Resolved she has not had any nausea, vomiting or diarrhea since admission. She denies abd pain Therefore she is being discharged home imaging revealing for IMPRESSION: 1. Negative for bowel obstruction. 2. Distal colonic diverticulosis, without diverticulitis. 3. Cholelithiasis, without cholecystitis. no leukocytosis (3) Unsteady gait when walking: Start date: 07/23/21 Start time: 15:26 Status: Acute Asessment and Plan: Refused to get up when PT was in the room however has not had any difficulty getting up and going to the BR Discharge via RCT discussed with Dr. Blanton Discharge Plan Disposition Patient Disposition: HOME Condition: Stable Discharge Details Reason For Visit: GASTROENTERITIS,UNSTEADY GAIT Admit Date/Time: 07/22/21 22:49 Admit Provider: Armen Maldonado Attending Provider: Armen Maldonado Primary Care Provider: Kathleen Azevedo Hospital Course Hospital Course: This is a 76-year-old female with history of hypothyroidism, diabetes, constipation, pulmonary embolism presents with report of nausea, vomiting and diarrhea with diarrhea occurring yesterday. She presented on the day of admission with nausea and 3 episodes of vomiting without hematemesis. She also had 3 episodes of watery diarrhea without blood. She also complained of room spinning, dizziness which occurred simultaneously with her above symptoms. She denies any headache or focal neurological complaints. She denies any new medications or recent antibiotics. She denies known sick contacts. She denies any upper respiratory symptoms, symptoms or fever with chills. The patient states that she still has some slight dizziness with looking to the side or moving her head even while lying in bed. Today she is revealing for vertigo with nystagmus horizontal, she states she is spinning when she stands up and the room with left ear trouble. PT worked with her and agrees she has vertigo, she stated it was worse after PT. Orthostatic vital signs normal. She has not had any nausea/vomiting/diarrhea, she had hard jose guadalupe this morning for stool. She received IV hydration. PT recommends outpatient therapy to continue to work with her vertigo. Will discharge home on valium and antiemetic with PT consult. Her imaging was negative for diverticulitis and choleycystitis. She denies Cp, sob. Home Meds and New Rx's Prescriptions: New diazepam [Valium] 5 mg tablet 5 mg PO TID Qty: 20 RF: 0 ondansetron HCl [Zofran] 4 mg tablet 4 mg PO Q8H PRNQty: 20 RF: 0 Continued Flovent HFA 220 mcg/actuation HFA aerosol inhaler 2 puff INHALATION BID RF: 0 ipratropium-albuterol 0.5 mg-3 mg(2.5 mg base)/3 mL Solution For Nebulization 3 ml UPD Q4H PRN PRN (Reason: shortness of breath or wheezing) Qty: 180 RF: 0 docusate sodium [Colace] 100 mg Capsule 100 mg PO BID Qty: 60 RF: 0 guaifenesin [Mucinex] 600 mg Tablet Extended Release 12hr 600 mg PO BID PRN PRN (Reason: cough) Qty: 20 RF: 0 pantoprazole 40 mg Tablet,Delayed Release (Dr/Ec) 40 mg PO DAILY@0730 Qty: 30 RF: 0 sennosides [Senokot] 8.6 mg Tablet 8.6 mg PO BID Qty: 60 RF: 0 albuterol sulfate 2.5 mg /3 mL (0.083 %) Solution For Nebulization 2.5 mg inhalation QID PRNRF: 0 acetaminophen [Mapap Arthritis Pain] 650 mg Tablet Extended Release 650 mg PO BID RF: 0 furosemide 20 mg Tablet 20 mg PO DAILY RF: 0 levalbuterol tartrate 45 mcg/actuation Hfa Aerosol Inhaler 2 puff INHALATION BID PRNRF: 0 Incruse Ellipta 62.5 mcg/actuation Blister With Device 1 inh INHALATION DAILY RF: 0 amlodipine 2.5 mg tablet 2.5 mg PO DAILY RF: 0 aspirin 81 mg tablet,delayed release (DR/EC) 81 mg PO DAILY RF: 0 levothyroxine 125 mcg tablet 125 mcg PO DAILY RF: 0 pravastatin 20 mg tablet 20 mg PO DAILY RF: 0 atorvastatin 80 mg tablet 80 mg PO DAILY RF: 0 Eliquis 5 mg tablet 5 mg PO BID Qty: 71 RF: 0 Discharge Instructions Instructions: Dehydration (DC), Gastroenteritis (DC), Acute Nausea and Vomiting (DC), Benign Paroxysmal Positional Vertigo (DC) Additional Instructions: Take Valium for dizziness, take zofran as needed for nausea, this can be caused from dizziness Make sure your are drinking plenty of water Follow up with Physical therapy as an outpatient to help with your vertigo If it continues you can follow up an ENT you will need a referral from your PCP Follow up with your PCP in 2 weeks call to make an appt on Saturday Stand Alone Forms: Nursing Discharge Form Referrals: Kathleen Azevedo [Primary Care Provider] - (Please call Saturday to make an appointment for 2 weeks) Sanjay Mcfarland PT [PHYSICAL THERAPIST] - (Please call Saturday to make an appointment.) Activity:: Activity as Tolerated Equipment/Supplies:: No Equipment Needed Diet:: Carb Counting Discharge Orders Discharge Orders: Discharge Order (Routine); Ordered 07/23/21 Ordered By: Stefani Brothers DS: Summary Time Spent with Patient providing and/or coordinating discharge services: Less than 30 minutes Status at Discharge Functional status at discharge: independent ambulation Overall status at discharge: patient is progressing back to baseline Mental Status: mental status grossly normal Speech and Movement: speech and movement normal Mood: congruent mood Affect: normal affect Exam Const General: cooperative, comfortable and no acute distress Nutritional Appearance: obese Orientation: alert, awake and oriented x3 Eyes Eyelids: eyelids normal Pupils: PERRL EOM: nystagmus (horizontal) Neck Neck: normal visual inspection and no JVD Lymphatic: no lymphadenopathy noted Resp Effort & Inspection: normal respiratory effort Auscultation: clear to auscultation bilaterally Cardio Jugular venous pressure: no JVD Rhythm: regular rhythm Heart Sounds: S1 normal GI Auscultation: normal bowel sounds General: No CVA tenderness and deferred Skin General skin exam: no rashes or lesions noted Neuro General: patient alert, patient awake and patient oriented x3 Cranial Nerves: nystagmus (horizontal) Cognition: normal cognition Speech: speech normal Gait: normal gait Extrem General: normal to inspection, full ROM and no clubbing, cyanosis or edema Psych Mental Status: mental status grossly normal Speech and Movement: speech and movement normal Mood: congruent mood Affect: normal affect DS: Data Vitals/I&O Vitals and I&O: Vital Signs Temperature 36.4 C L 07/23/21 11:45 Temperature Source Tympanic 07/23/21 11:45 Pulse 89 07/23/21 14:33 Pulse Rhythm Regular 07/23/21 09:52 Pulse 84 07/23/21 00:10 Respiratory Rate 18 07/23/21 11:45 Respiratory Effort 07/23/21 09:52 Respiratory Depth Normal 07/23/21 09:52 Respiratory Pattern Normal 07/23/21 09:52 Blood Pressure 138/82 07/23/21 14:33 Blood Pressure Mean 80 07/23/21 00:00 Blood Pressure Position Sitting 07/22/21 19:11 Pulse Oximetry 92 07/23/21 11:45 Oxygen Delivery Method Room Air 07/23/21 11:45 Oxygen Flow Rate 0 07/23/21 11:45 Pain Level 10 07/23/21 07:33 Comment 07/22/21 19:11 Intake & Output 07/22/21 07/23/21 07/23/21 23:59 11:59 23:59 Intake Total 565 / 565 1000 / 2250 1250 / 2250 Output Total 1000 / 1000 800 / 800 Balance -435 / -435 200 / 1450 1250 / 1450 Weight 111.316 kg 111.19 kg Intake: IV 565 / 565 510 / 1510 1000 / 1510 Oral 490 / 740 250 / 740 Output: Urine 1000 / 1000 800 / 800 Other: Urine Color Yellow Urine Appearance Clear Urine Odor Normal Strong Comment Patient voided in the toliet, unmeasurable amount. Patient voided in the toliet an unmeasurable amount. Stool Size Large Stool Characteristics Soft Formed Brown Voiding Methods Toilet Toilet # Voids 1 Data Completed and Pending Completed studies during hospitalization [Text1]: COMPARISON: CT THORAX ABD/PEL CTA 06/15/2021 12:46 AM FINDINGS: Lungs: Mild endobronchial mucus noted in the lower lobes, right greater than left. Liver: Normal. No mass. Gallbladder and bile ducts: Calcified stones layer dependently in the gallbladder. Negative for inflammatory change around the gallbladder. Negative for biliary ductal dilatation. Pancreas: Normal. No ductal dilation. Spleen: Normal. No splenomegaly. Adrenal glands: Normal. No mass. Kidneys and ureters: Normal. No hydronephrosis. Stomach and bowel: Stomach is collapsed. Small bowel is not dilated. Negative for inflammatory changes around the colon. Numerous diverticula are present in the sigmoid colon. Rectum is mildly distended with stool, 6 cm Appendix: Normal appendix. Intraperitoneal space: Unremarkable. No free air. No significant fluid collection. Vasculature: Surgical clips are present around the aorta of near the mesenteric and renal arteries. Negative for aneurysm. Mild calcified plaque. Lymph nodes: Unremarkable. No enlarged lymph nodes. Urinary bladder: Unremarkable as visualized. Reproductive: Unremarkable as visualized. Bones/joints: Negative for compression fracture. Multilevel degenerative disc disease and facet arthropathy present. Soft tissues: Midline abdominal wall scar tissue noted. Negative for dehiscence. Laxity of the abdominal wall noted. IMPRESSION: 1. Negative for bowel obstruction. 2. Distal colonic diverticulosis, without diverticulitis. 3. Cholelithiasis, without cholecystitis. Labs on day of discharge: Labs from last 24 hours 07/23/21 07/23/21 07/23/21 08:09 08:09 06:18 WBC 5.49 RBC 4.09 Hgb 11.5 Hct 37.0 MCV 90.5 MCH 28.1 MCHC 31.1 L RDW 14.2 Plt Count 156 MPV 11.2 H Immature Gran % 0.2 Neutrophils % 63.5 Lymphocytes % 23.1 Monocytes % 7.5 Eosinophils % 5.3 Basophils % 0.4 Nucleated RBC % 0 Absolute Neutrophils 3.49 Absolute Lymphocytes 1.27 Absolute Monocytes 0.41 Absolute Eosinophils 0.29 Absolute Basophils 0.02 Sodium 141 Potassium 4.4 Chloride 107 Carbon Dioxide 28.1 Anion Gap 5.9 BUN 25 H Creatinine 1.1 H Estimated GFR/1.73 m2 48.55 Glucose 96 Calcium 8.7 Magnesium Total Bilirubin 0.2 AST 33 ALT 62 H Alkaline Phosphatase 166 H Troponin I Total Protein 6.4 Albumin 3.1 L Lipase TSH Urine Color Urine Clarity Urine pH Ur Specific [place] Urine Protein Urine Ketones Urine Blood Urine Nitrite Urine Bilirubin Urine Urobilinogen Ur Leukocyte Esterase Urine RBC Urine WBC Ur Epithelial Cells Urine Crystals Urine Bacteria Urine Casts Urine Mucus Ur Culture Indicated? Urine Glucose Stool Campylobacter PCR Stl C.difficile Tox PCR Pending Stool Salmonella PCR Stool Shigella PCR COVID-19 Source SARS-CoV-2 (PCR) Shiga Toxin (PCR) 07/23/21 07/22/21 07/22/21 06:00 22:40 20:20 WBC 7.05 RBC 4.26 Hgb 12.1 Hct 39.0 MCV 91.5 MCH 28.4 MCHC 31.0 L RDW 14.1 Plt Count 168 MPV 11.4 H Immature Gran % 0.1 Neutrophils % 58.0 Lymphocytes % 29.4 Monocytes % 7.4 Eosinophils % 4.7 Basophils % 0.4 Nucleated RBC % 0 Absolute Neutrophils 4.09 Absolute Lymphocytes 2.07 Absolute Monocytes 0.52 Absolute Eosinophils 0.33 Absolute Basophils 0.03 Sodium Potassium Chloride Carbon Dioxide Anion Gap BUN Creatinine Estimated GFR/1.73 m2 Glucose Calcium Magnesium Total Bilirubin AST ALT Alkaline Phosphatase Troponin I Total Protein Albumin Lipase TSH Urine Color Urine Clarity Urine pH Ur Specific [place] Urine Protein Urine Ketones Urine Blood Urine Nitrite Urine Bilirubin Urine Urobilinogen Ur Leukocyte Esterase Urine RBC Urine WBC Ur Epithelial Cells Urine Crystals Urine Bacteria Urine Casts Urine Mucus Ur Culture Indicated? Urine Glucose Stool Campylobacter PCR Pending Stl C.difficile Tox PCR Stool Salmonella PCR Pending Stool Shigella PCR Pending COVID-19 Source Nasal/Nares SARS-CoV-2 (PCR) Negative Shiga Toxin (PCR) Pending 07/22/21 07/22/21 07/22/21 20:20 20:20 20:10 WBC RBC Hgb Hct MCV MCH MCHC RDW Plt Count MPV Immature Gran % Neutrophils % Lymphocytes % Monocytes % Eosinophils % Basophils % Nucleated RBC % Absolute Neutrophils Absolute Lymphocytes Absolute Monocytes Absolute Eosinophils Absolute Basophils Sodium 141 Potassium 4.7 Chloride 106 Carbon Dioxide 29.9 Anion Gap 5.1 BUN 32 H Creatinine 1.1 H Estimated GFR/1.73 m2 48.55 Glucose 101 Calcium 9.4 Magnesium 2.1 Total Bilirubin 0.3 AST 42 H ALT 70 H Alkaline Phosphatase 181 H Troponin I < 0.05 Total Protein 7.5 Albumin 3.4 Lipase 70 TSH 0.59 Urine Color Yellow Urine Clarity Clear Urine pH 5.5 Ur Specific [place] 1.020 Urine Protein Negative Urine Ketones Negative Urine Blood Trace-intact H Urine Nitrite Negative Urine Bilirubin Negative Urine Urobilinogen 0.2 Ur Leukocyte Esterase Negative Urine RBC 0-2 Urine WBC 3-5 Ur Epithelial Cells Moderate Urine Crystals Negative Urine Bacteria Few Urine Casts Negative Urine Mucus Negative Ur Culture Indicated? No/Sq. Contamination Urine Glucose Negative Stool Campylobacter PCR Stl C.difficile Tox PCR Stool Salmonella PCR Stool Shigella PCR COVID-19 Source SARS-CoV-2 (PCR) Shiga Toxin (PCR) PFSH Medical History Aneurysm of infrarenal abdominal aorta Cholelithiasis CKD (chronic kidney disease) stage 3, GFR 30-59 ml/min COPD (chronic obstructive pulmonary disease) Diverticulosis Failure to thrive in adult Fracture of both ankles Hallucinations Hearing loss History of blood transfusion Hx of diabetes mellitus Hx of hyperlipidemia Hypertension Hypothyroidism Low back pain Memory impairment Non-insulin dependent diabetes mellitus Noncompliance with medication regimen Obesity Osteoarthritis of right knee Pain, joint, knee, right Seborrheic keratosis Smoker Urinary tract infection Surgical History History of bilateral tubal ligation History of hernia repair Family History Father Diabetes Social History Smoking/Tobacco Use Status: Current every day Tobacco Type: cigarettes Years smoked: 15 Tobacco: How many years used: 15 Counseling given: provider counseling and support medications Smoking risk assessment performed?: Yes Alcohol Intake: never Drug use: Never Substance use type: does not use Household members: none Housing: apartment Number of Children: 3 number of grandchildren: 1 What is your relationship status?: Panel score (0-1 are the most socially isolated patients): 0 What type of physical activity do you participate in: walking Seatbelt use: always Do you feel safe at home: Yes Do you feel safe in your relationship?: Yes
[2021-07-23] MEDS: diazePAM 5 MG TAB PO (16:00)
--- NOTE | 2021-07-23 17:21 | PDOC.CMDIS ---
- If Service Date Differs Date of service: 07/23/21 Time of Service: 17:21 LACE Index Scoring Tool - Questions: Length of Stay (in days): 1 Acuity (Admit via E.D.?): Yes Comorbidities: Diabetes w/o Complication, Chronic Pulmonary Disease, Liver or Renal Disease E.D. Visits: 5 - Answers: Total Score: 13 Risk of Readmission: High Risk Care Management Discharge Reason for Hospitalization: gastroenteritis Discharge Plan: Fabiola will be discharged home with no new services. She will follow up with her community providers and transport with RCT coordinated by CM. Patient/Family Education Needs: Review of discharge instructions, limitations, follow up plan, medications, activity, Ask Me Three
[2021-07-23 20:13] LABS: Campylobacter PCR Negative (Negative); Salmonella PCR Negative (Negative); Shiga Toxin PCR Negative (Negative); Shigella/Enteroinvasive Ecoli Negative (Negative)
--- NOTE | 2021-07-25 12:08 | PT.INIE ---
PT Notes Visit Reasons: GASTROENTERITIS,UNSTEADY GAIT Physical Therapy Inpatient Initial Evaluation Date: 07/23/21 Referring Doctor: Stefani Brothers PT Orders: PT CONSULT Precautions: Fall. Standard. Patient Profile/Admitting Diagnosis: Vertigo PMHX: Medical History Aneurysm of infrarenal abdominal aorta CKD (chronic kidney disease) stage 3, GFR 30-59 ml/min COPD (chronic obstructive pulmonary disease) Failure to thrive in adult Fracture of both ankles Hallucinations Hearing loss History of blood transfusion Hx of diabetes mellitus Hx of hyperlipidemia Hypertension Hypothyroidism Low back pain Memory impairment Non-insulin dependent diabetes mellitus Noncompliance with medication regimen Obesity Osteoarthritis of right knee Pain, joint, knee, right Seborrheic keratosis Smoker Urinary tract infection Surgical History History of bilateral tubal ligation History of hernia repair Falls in the last year: No Neurologic screen: Hearing loss: Pt reports change since yesterday in L ear hearing Numbness/tingling: None new, pt reports occasional numbness B hands Light headedness: Yes. Pt reports this is constant. Presenting Problems: Dizziness with rolling in bed: Yes Dizziness with looking up/down: Yes Balance Problems: No Weakness: No History of falls: Yes, but no falls within the last year Pt reported hx: pt states that her dizziness started yesterday as well as a strange feeling in her L ear. Pt reports she feels faint/light headed constantly, but that this is worse with movement. Pt reports she has been nauseous as well. Pt reports that her dizziness also feels like the room is spinning at times and at other times like the room is closing in on her. Objective: Cervical ROM - grossly limited in all directions. Vitals BP supine: 106/70 BP standing 1min: 127/78 Posture: WNL, pt utilizing cane in standing Special Tests [place]: Pt declined testing due to test position. Pt was offered sidelying testing but also declined this test due to fear she would have trouble breathing with either test. Pt given education regarding efficacy and duration of testing, but declined. VOR at pt mediated pace: pt report difficulty maintaining focus. Pt declined OOB mobility today. IE: [id number] Patient Education: Direct treatment time: 35 Total treatment time: 35 ASSESSMENT: Patient presents with clinical signs and symptoms consistent with current/admitting diagnosis of vertigo vs orthostatic hypotension, limiting pt's functional mobility status. Considering pt would not tolerate positional testing for BPPV or OOB mobility, pt does not present appropriate for physical therapy interventions regarding the above mentioned impairments at this time. Pt is recommended further evaluation and treatment medically to manage her symptoms until pt tolerates PT interventions. Patient is assessed as a high complexity based on the following: History: 76 year old female identifying person with impairment level findings, functional limitations, and past medical history as indicated above Examination: Demonstrable impairment in mobility level with underlying impairments and functional limitations as documented above Presentation: Pt presents with consistent dizziness. Decision Making: moderate complexity DISCHARGE RECOMMENDATIONS: Pt is recommended follow-up services with OP PT for vertigo as tolerated. TREATMENT CODE/TIME: (35 minutes), 60570 Thank you for the opportunity to participate in the care of this patient.
== END 2021-07-23 16:23 | disposition home or self-care (01) ==
LOC: ER 23:21 → MS 07-23 06:28
PROVIDERS: Admitting Provider Family Medicine; Emergency Provider Physician Assistant; PCP Nurse Practitioner; Visit Provider Family Medicine
DX: K52.9 Noninfective gastroenteritis and colitis, unspecified (principal); R42 Dizziness and giddiness; E03.9 Hypothyroidism, unspecified; R11.2 Nausea with vomiting, unspecified; Z79.899 Other long term (current) drug therapy; N18.30 Chronic kidney disease, stage 3 unspecified; J44.9 Chronic obstructive pulmonary disease, unspecified; Z79.01 Long term (current) use of anticoagulants; E78.5 Hyperlipidemia, unspecified; I12.9 Hypertensive chronic kidney disease with stage 1 through stage 4 chronic kidney disease, or unspecified chronic kidney disease; E11.22 Type 2 diabetes mellitus with diabetic chronic kidney disease; Z86.711 Personal history of pulmonary embolism; M54.5 Low back pain; M17.11 Unilateral primary osteoarthritis, right knee; F17.210 Nicotine dependence, cigarettes, uncomplicated; R26.81 Unsteadiness on feet; K80.20 Calculus of gallbladder without cholecystitis without obstruction; K57.30 Diverticulosis of large intestine without perforation or abscess without bleeding; I71.4 Abdominal aortic aneurysm, without rupture; Z20.822 Contact with and (suspected) exposure to COVID-19
CPT/HCPCS: 36415; 80053; 83690; 87040; 87493; 87505; 87635; 93005; 94640; 96361; 96365; 96375; 97163; 99285; 74177; 81003; 81015; 83735; 84443; 84484; 85025; 93010; 99217; 99220; G0378; J0131; J2765; J3490

== ENCOUNTER 2021-08-05 04:27 | Emergency (ER) | payer OTHER, MEDICAID, SELFPAY ==
[2021-08-05 04:28] VITALS: BP 141/55; PULSE 95; RESP 22; TEMP 36.3; O2SAT 92
--- NOTE | 2021-08-05 04:31 | W.ED.GENAD ---
Discharge Plan Disposition Patient Disposition: HOME Condition: Good Discharge Details Clinical Impression: Vertigo Primary Care Provider: Kathleen Azevedo ED Provider: Richard Verdugo Meds and New Rx's Prescriptions: Continued ipratropium-albuterol 0.5 mg-3 mg(2.5 mg base)/3 mL Solution For Nebulization 3 ml UPD Q4H PRN PRN (Reason: shortness of breath or wheezing) Qty: 180 RF: 0 docusate sodium [Colace] 100 mg Capsule 100 mg PO BID Qty: 60 RF: 0 guaifenesin [Mucinex] 600 mg Tablet Extended Release 12hr 600 mg PO BID PRN PRN (Reason: cough) Qty: 20 RF: 0 pantoprazole 40 mg Tablet,Delayed Release (Dr/Ec) 40 mg PO DAILY@0730 Qty: 30 RF: 0 sennosides [Senokot] 8.6 mg Tablet 8.6 mg PO BID Qty: 60 RF: 0 albuterol sulfate 2.5 mg /3 mL (0.083 %) Solution For Nebulization 2.5 mg inhalation QID PRNRF: 0 acetaminophen [Mapap Arthritis Pain] 650 mg Tablet Extended Release 650 mg PO BID RF: 0 furosemide 20 mg Tablet 20 mg PO DAILY RF: 0 levalbuterol tartrate 45 mcg/actuation Hfa Aerosol Inhaler 2 puff INHALATION BID PRNRF: 0 Incruse Ellipta 62.5 mcg/actuation Blister With Device 1 inh INHALATION DAILY RF: 0 ondansetron HCl [Zofran] 4 mg tablet 4 mg PO Q8H PRNQty: 20 RF: 0 amlodipine 2.5 mg tablet 2.5 mg PO DAILY RF: 0 aspirin 81 mg tablet,delayed release (DR/EC) 81 mg PO DAILY RF: 0 levothyroxine 125 mcg tablet 125 mcg PO DAILY RF: 0 pravastatin 20 mg tablet 20 mg PO DAILY RF: 0 atorvastatin 80 mg tablet 80 mg PO DAILY RF: 0 Eliquis 5 mg tablet 5 mg PO BID Qty: 71 RF: 0 Discharge Instructions Instructions: Vertigo (ED) Additional Instructions: Continue to administer a cane for stability and Valium needed for vertigo. Follow-up with primary care and consider return to physical therapy. Return to ED with any new neurologic changes, fall with head injury, or other concerns. Referrals: Kathleen Azevedo [Primary Care Provider] - Medical Decision Making Patient presenting status post fall at home due to vertigo. Remains dizzy currently given Valium which has worked previously. She is on blood thinners but denies striking her head at all. She denies any injury from the fall. She has no headache. No neurologic changes. No evidence of extremity injury or fracture. Will ambulate in the department after the Valium taken effect to be sure she is safe for discharge. 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 Recommend follow-up with primary care for consideration of going back to physical therapy in addition to using her cane and Valium as needed. Medical Records Medical records reviewed: Yes I reviewed the patient's medical records. HPI General Mode of arrival: EMS. Date/Time Provider Initiated Documentation: 08/05/21 04:31. Limitations to Documentation: no limitations. Information obtained by: patient, RN notes reviewed and old records reviewed. HPI Narrative: Patient presents to the ED by ambulance status post fall at home. Patient had got up to go to the bathroom. She became dizzy, lost her balance and fell. She did not strike her head. She did not have loss consciousness. She has no injury but continues to feel dizzy and had EMS bring her in to be checked out. She has had intermittent vertigo with an admission for same earlier this month. Valium does help though she does not take it all the time. She denies headache, neck pain, chest pain, syncope, shortness of breath, hip pain, numbness, weakness. She does admit to some mild nausea and some persistent dizziness. Related Data Home Medications Medication Instructions Recorded Confirmed amlodipine 2.5 mg PO DAILY 09/22/20 08/05/21 aspirin 81 mg PO DAILY 09/22/20 08/05/21 levothyroxine 125 mcg PO DAILY 09/22/20 08/05/21 pravastatin 20 mg PO DAILY 09/22/20 08/05/21 docusate sodium [Colace] 100 mg PO BID #60 cap 10/07/20 08/05/21 guaifenesin [Mucinex] 600 mg PO BID PRN PRN #20 tab 10/07/20 08/05/21 ipratropium-albuterol 3 ml UPD Q4H PRN PRN #180 ml 10/07/20 08/05/21 pantoprazole 40 mg PO DAILY@0730 #30 tab 10/07/20 08/05/21 sennosides [Senokot] 8.6 mg PO BID #60 tab 10/07/20 08/05/21 Incruse Ellipta 1 inh INHALATION DAILY 01/01/21 08/05/21 acetaminophen [Mapap Arthritis 650 mg PO BID 01/01/21 08/05/21 Pain] albuterol sulfate 2.5 mg INHALATION QID PRN 01/01/21 08/05/21 furosemide 20 mg PO DAILY 01/01/21 08/05/21 levalbuterol tartrate 2 puff INHALATION BID PRN 01/01/21 08/05/21 atorvastatin 80 mg PO DAILY 06/15/21 08/05/21 Eliquis 5 mg PO BID #71 tab 06/16/21 08/05/21 ondansetron HCl [Zofran] 4 mg PO Q8H PRN #20 tab 07/23/21 08/05/21 Previous Rx's Medication Instructions Recorded docusate sodium [Colace] 100 mg PO BID #60 cap 10/07/20 guaifenesin [Mucinex] 600 mg PO BID PRN PRN #20 tab 10/07/20 ipratropium-albuterol 3 ml UPD Q4H PRN PRN #180 ml 10/07/20 pantoprazole 40 mg PO DAILY@0730 #30 tab 10/07/20 sennosides [Senokot] 8.6 mg PO BID #60 tab 10/07/20 Eliquis 5 mg PO BID #71 tab 06/16/21 ondansetron HCl [Zofran] 4 mg PO Q8H PRN #20 tab 07/23/21 Allergies Allergy/AdvReac Type Severity Reaction Status Date / Time Penicillins Allergy Intermediate Swelling/Ed Verified 08/05/21 04:33 demond Bees Allergy Uncoded 08/05/21 04:33 General KAYA: 3 Review of Systems Narrative: As documented in HPI otherwise negative as below. Const: no fever, chills, weakness Resp: no cough, SOB, pleuritic pain CV: no CP, diaphoresis, edema, syncope GI: no abdominal pain, vomiting, diarrhea Neuro: no headache, numbness, focal weakness, confusion PFSH Medical History Aneurysm of infrarenal abdominal aorta Cholelithiasis CKD (chronic kidney disease) stage 3, GFR 30-59 ml/min COPD (chronic obstructive pulmonary disease) Diverticulosis Failure to thrive in adult Fracture of both ankles Hallucinations Hearing loss History of blood transfusion Hx of diabetes mellitus Hx of hyperlipidemia Hypertension Hypothyroidism Low back pain Memory impairment Non-insulin dependent diabetes mellitus Noncompliance with medication regimen Obesity Osteoarthritis of right knee Pain, joint, knee, right Seborrheic keratosis Smoker Urinary tract infection Surgical History History of bilateral tubal ligation History of hernia repair Family History Father Diabetes Social History Smoking/Tobacco Use Status: Current every day Tobacco Type: cigarettes Years smoked: 15 Tobacco: How many years used: 15 Counseling given: provider counseling and support medications Smoking risk assessment performed?: Yes Alcohol Intake: never Drug use: Never Substance use type: does not use Household members: none Housing: apartment Number of Children: 3 number of grandchildren: 1 What is your relationship status?: Panel score (0-1 are the most socially isolated patients): 0 What type of physical activity do you participate in: walking Seatbelt use: always Do you feel safe at home: Yes Do you feel safe in your relationship?: Yes Exam Narrative Exam Narrative: Const: WDWN elderly female in NAD. HEENT: NC/AT. Normal facial exam. Eyes: PERRL and EOMI w/ slight horizontal nystagmus. Neck: Supple. Trachea midline. No posterior midline tenderness. Lungs: Normal respiratory effort. Lungs with diffuse wheeze. Cor: RRR without murmur/gallop. Good radial pulses. GI: Soft. NT/ND. Neuro: A+O x 3. Normal speech, mentation. Cranial nerves II - XII grossly intact. No gross motor or sensory deficit. Ext: No C/C/E. Normal ROM with pain. Skin: Warm and dry without laceration.
[2021-08-05 04:38] VITALS: RESP 22
[2021-08-05] MEDS: diazePAM 5 MG TAB PO (04:50)
--- NOTE | 2021-08-05 05:32 | NUR.NOTE ---
Nursing Note: Patient resting comfortably in bed with eyes closed.
[2021-08-05 06:16] VITALS: BP 140/62; PULSE 76; RESP 20; O2SAT 95
--- NOTE | 2021-08-05 06:17 | NUR.NOTE ---
Nursing Note: Patient up to bedside commode with stand by assist, then put herself back in the bed.
== END 2021-08-05 07:45 | disposition home or self-care (01) ==
PROVIDERS: Emergency Provider Emergency Medicine; PCP Nurse Practitioner
DX: R42 Dizziness and giddiness (principal); R11.0 Nausea; W19.XXXA Unspecified fall, initial encounter
CPT/HCPCS: 99283

== ENCOUNTER 2021-08-29 21:50 | Inpatient (IN) | payer OTHER, MEDICAID, SELFPAY ==
[2021-08-29] VITALS (8 sets, daily range): BP systolic 108–156; BP diastolic 50–57; PULSE 96–105; RESP 12–26; TEMP 36.5; O2SAT 85–99
--- NOTE | 2021-08-29 21:45 | DI.CT_ITS ---
Exam(s) CT ABDOMEN PELVIS CTA EXAM: CT ABDOMEN PELVIS CTA CLINICAL HISTORY: llq pain, nausea, hx of AAA. TECHNIQUE: Imaging Protocol: Axial computed tomography images with coronal and sagittal reformatted images were created and reviewed CONTRAST MATERIAL: Intravenous: Omnipaque 350 Contrast volume:100 ml Oral: None COMPARISON: CT CT ABDOMEN PELVIS W from 07/22/2021 FINDINGS: ABDOMEN: Are surgical clips again noted around the abdominal aorta. Possibility of graft.. The abdominal aor ta is atherosclerotic. Maximum diameter 2.8 cm. There is subtle flight plaque the posterior wall of the abdominal aorta at upper L3 level. Mild-moderate narrowing of the aorta at this level. There i s mild atherosclerotic disease at the origin of the celiac artery no high-grade stenosis. Mild narro wing at the origin of the SMA. No high-grade stenosis. No embolus in this vessel. Left renal artery is patent. Significant stenosis just distal to the origin of the right renal arter y. No significant stenosis at the aortic bifurcation or graft bifurcation. Both common iliac arteries e xhibit maximum diameter 1.5 cm but without high-grade stenoses therein nor at their junctions with th e external iliac arteries. There are no ischemic appearing bowel loops. No ascites. LIVER: There are no focal hepatic lesions nor dilatation of intrahepatic ducts. GALLBLADDER/BILIARY: Tiny gallstones noted. No evidence of acute cholecystitis. CBD is not dilated. PANCREAS: Somewhat atrophic. No obvious mass. No pancreatic duct dilatation. SPLEEN: Spleen is not enlarged. There are no intrasplenic lesions. Splenic and portal veins are horne nt. ADRENALS: There are no significant adrenal masses. KIDNEYS: Both exhibit normal size. No cysts nor solid lesions. No calculi nor hydronephrosis. No h ydroureter. No obvious abnormality in the nondistended urinary bladder.. LYMPH NODES: There is no retroperitoneal nor para-aortic adenopathy. No obvious mesenteric masses. ABDOMINAL WALL: No evidence of significant anterior abdominal wall hernia. GI: Extensive sigmoid diverticulosis. No obvious acute diverticulitis. PELVIS: LYMPH NODES: There is no intrapelvic nor inguinal adenopathy. GI: No evidence of appendicitis. URINARY BLADDER: No calculi nor masses evident REPRODUCTIVE: Age-appropriate. No abnormal adnexal masses nor free fluid OSSEOUS: No significant osseous lesions. IMPRESSION: 1. Extensive sigmoid diverticulosis. No obvious acute diverticulitis. No appendicitis 2. Tiny gallstones noted. No obvious acute diverticulitis. No significant dilatation of the biliary tree. 3. Aortic findings as above. Correlation with prior surgical history recommended RADIATION DOSE DELIVERED: 895.34mGy.cm Total DLP DATA REPOSITORY: All CT scans at this facility are submitted to the National Radiology Data Registry (NRDR) Dose Index Registry (DIR) with the [employer] ([employer]). RADIATION OPTIMIZATION: All CT scans at this facility use at least one of these dose optimization te chniques: automated exposure control; mA and/or kV adjustment per patient size (includes targeted exa ms where dose is matched to clinical indication); or iterative reconstruction.
[2021-08-29] MEDS: Ondansetron 4 MG/2 ML VIAL IVP (22:29)
[2021-08-29] MEDS: methylPREDNISolone SUCC 125 MG VIAL IVP (22:31)
[2021-08-29 22:32] LABS: Abs Immature Grans 0.01 10^3/uL (0.0-0.06); Absolute Basophil Count 0.02 10^3/uL (0.0-0.2); Absolute Lymphocyte Count 1.82 10^3/uL (1.2-3.4); Absolute Monocyte Count 0.56 10^3/uL (0.1-0.8); Absolute Neutrophil Count 4.07 10^3/uL (1.2-6.7); Basophils % 0.3; HCT 37.5 % (36.0-46.0); HGB 11.5 g/dL (11.2-15.7); Immature Grans % 0.1; Lactate 0.8 mmol/L (0.6-1.4); Lymphocytes % 27.2; MCH 27.6 pg (27.0-33.0); MCHC 30.7 % (32.0-36.0); MCV 89.9 fL (80-95); MPV 11.1 fL (8.0-11.0); Monocytes % 8.4; Nucleated RBC 0 %; Platelet Count 158 10^3/uL (130-400); RBC 4.17 10^6/uL (3.93-5.22); RDW 14.6 % (11.7-14.6); RDW-SD 48.5 fL; WBC 6.68 10^3/uL (4.4-10.8)
[2021-08-29] MEDS: Albuterol/Ipratropium 3 ML UPD VIAL 6 ML UPD (22:32)
--- NOTE | 2021-08-29 22:38 | ED.GENADUL_ITS ---
Discharge Plan Disposition Patient Disposition: [facility] INPATIENT Condition: Stable Discharge Details Chief Complaint: Abd Prob Clinical Impression: Community acquired pneumonia, Abdominal pain, Asthma exacerbation Primary Care Provider: Kathleen Azevedo ED Provider: Cade Lopez Home Meds and New Rx's Prescriptions: No Action ipratropium-albuterol 0.5 mg-3 mg(2.5 mg base)/3 mL Solution For Nebulization 3 ml UPD Q4H PRN PRN (Reason: shortness of breath or wheezing) Qty: 180 RF: 0 docusate sodium [Colace] 100 mg Capsule 100 mg PO BID Qty: 60 RF: 0 guaifenesin [Mucinex] 600 mg Tablet Extended Release 12hr 600 mg PO BID PRN PRN (Reason: cough) Qty: 20 RF: 0 pantoprazole 40 mg Tablet,Delayed Release (Dr/Ec) 40 mg PO DAILY@0730 Qty: 30 RF: 0 sennosides [Senokot] 8.6 mg Tablet 8.6 mg PO BID Qty: 60 RF: 0 albuterol sulfate 2.5 mg /3 mL (0.083 %) Solution For Nebulization 2.5 mg inhalation QID PRNRF: 0 acetaminophen [Mapap Arthritis Pain] 650 mg Tablet Extended Release 650 mg PO BID RF: 0 furosemide 20 mg Tablet 20 mg PO DAILY RF: 0 levalbuterol tartrate 45 mcg/actuation Hfa Aerosol Inhaler 2 puff INHALATION BID PRNRF: 0 Incruse Ellipta 62.5 mcg/actuation Blister With Device 1 inh INHALATION DAILY RF: 0 ondansetron HCl [Zofran] 4 mg tablet 4 mg PO Q8H PRNQty: 20 RF: 0 amlodipine 2.5 mg tablet 2.5 mg PO DAILY RF: 0 aspirin 81 mg tablet,delayed release (DR/EC) 81 mg PO DAILY RF: 0 levothyroxine 125 mcg tablet 125 mcg PO DAILY RF: 0 pravastatin 20 mg tablet 20 mg PO DAILY RF: 0 atorvastatin 80 mg tablet 80 mg PO DAILY RF: 0 Eliquis 5 mg tablet 5 mg PO BID Qty: 71 RF: 0 Medical Decision Making 76-year-old female with a past medical history of abdominal aortic aneurysm, CKD, COPD, diabetes, high cholesterol, hypertension, hypothyroidism, bilateral tubal ligation, previous hernia repair, presents today for evaluation of abdominal pain. Patient states that she has not had a bowel movement since yesterday. She has had pain whenever she is straining to have a bowel movement. Pain is located in the left lower quadrant and it is achy and consistent in nature. She denies any tearing or ripping sensation. She denies any syncope. She denies any vomiting but does admit to nausea. Patient denies any dysuria. She denies any urinary frequency. No other complaints at this time. No other modifying factors. Physical exam demonstrates left lower quadrant tenderness, no guarding or rebound otherwise. Concern for diverticulitis, but differential also includes aortic pathology with her history. Pulses appear equal distally. We will get CT scan, rehydrate, manage her pain, monitor closely and reassess. Patient does have mild wheezes throughout, oxygenation dropped to 83%. We will give her supplemental oxygen, 2 breathing treatments from steroids. Get a chest x-ray to evaluate for infiltrate. 3:09 AM Patient's oxygenation improved with 2 L of supplemental oxygen, wheezing is somewhat improved after breathing treatments. CT scan of the abdomen demonstrates no acute process, no evidence of mesenteric ischemia or AAA pathology. Chest x-ray shows interstitial thickening, concern for atypical infection or bronchitis. Oxygenation at 92 to 94% on 2 L supplemental O2. Repeat exam continues to show mild abdominal tenderness, but no evidence of a surgical abdomen. No rebound. With the patient's persistent oxygen needs and evidence of mild pneumonia on x-ray I do feel that she benefit from antibiotics and admission. She does have a penicillin allergy and so we will give doxycycline IV. Did contact the hospitalist Dr. Blanton, he agrees with the assessment and plan. I will place admission orders on his behalf. I have extensively reviewed the treatment plan with the patient. I have addressed all patient concerns at this time. I have also discussed the plan with the admitting physician and they agree with the current assessment and plan and have agreed to assume responsibility for the patient. All parties demonstrate verbal understanding and agreement with our assessment and plan at this time. The documentation in this chart was dictated using [employer] dictation software. Please excuse any dictation errors. FINDINGS: Lungs: Minor atelectasis and probable bronchial wall thickening and distal small airways disease in the lung bases. Aorta: Postsurgical changes in the infrarenal aorta, satisfactory appearance. No aneurysm or dissection. Irregular atherosclerosis of the suprarenal aorta similar to prior. Celiac trunk and mesenteric arteries: Moderate chronic disease celiac trunk ostium similar to prior. SMA is mildly atherosclerotic and also patent. Renal arteries: Chronic atherosclerosis right and left renal arteries generally moderate in severity with multifocal at least mild stenosis similar to prior. The left renal artery potentially has been reimplanted. Right iliac arteries: No occlusion or significant stenosis. Left iliac arteries: No occlusion or significant stenosis. Other arteries: Chronic occasion fusiform dilation of the iliac arterial system similar to prior. No rupture. Liver: No hypervascular hepatic lesions. Gallbladder and bile ducts: No calcified stones. No ductal dilation. Pancreas: No mass. No ductal dilation. Spleen: No splenomegaly. Adrenal glands: No mass. Kidneys and ureters: No renal masses or hydronephrosis bilaterally. Stomach and bowel: Colonic diverticulosis without diverticulitis. Appendix: No evidence of appendicitis. Intraperitoneal space: No free air. No significant fluid collection. Lymph nodes: No enlarged lymph nodes. Urinary bladder: No mass. Reproductive: Unremarkable as visualized. Bones/joints: Degenerative changes in the spine. No acute fracture or subluxation. Soft tissues: Scarring ventral pelvic wall similar to prior. IMPRESSION: 1. No acute findings. Aortic and mesenteric findings are similar to prior. 2. Incidental findings as described. Thank you for allowing us to participate in the care of your patient. Dictated and Authenticated by: Bety Miguel MD 08/30/2021 12:11 AM Eastern Time ([place] & [place]) FINDINGS: Lungs: Minor scattered interstitial thickening without airspace consolidation. Pleural spaces: No pleural effusion. No pneumothorax. Heart/Mediastinum: No cardiomegaly. Bones/joints: No acute fracture. IMPRESSION: Interstitial thickening may reflect bronchitis or atypical infection. Thank you for allowing us to participate in the care of your patient. Dictated and Authenticated by: Bety Miguel MD 08/30/2021 1:55 AM Eastern Time ([place] & [place]) HPI General Date/Time Provider Initiated Documentation: 08/29/21 21:55 . HPI Narrative: 76-year-old female with a past medical history of abdominal aortic aneurysm, CKD, COPD, diabetes, high cholesterol, hypertension, hypothyroidism, bilateral tubal ligation, previous hernia repair, presents today for evaluation of abdominal pain. Patient states that she has not had a bowel movement since yesterday. She has had pain whenever she is straining to have a bowel movement. Pain is located in the left lower quadrant and it is achy and consistent in nature. She denies any tearing or ripping sensation. She denies any syncope. She denies any vomiting but does admit to nausea. Patient denies any dysuria. She denies any urinary frequency. No other complaints at this time. No other modifying factors. Related Data Home Medications Medication Instructions Recorded Confirmed amlodipine 2.5 mg PO DAILY 09/22/20 08/29/21 aspirin 81 mg PO DAILY 09/22/20 08/29/21 levothyroxine 125 mcg PO DAILY 09/22/20 08/29/21 pravastatin 20 mg PO DAILY 09/22/20 08/29/21 docusate sodium [Colace] 100 mg PO BID #60 cap 10/07/20 08/29/21 guaifenesin [Mucinex] 600 mg PO BID PRN PRN #20 tab 10/07/20 08/29/21 ipratropium-albuterol 3 ml UPD Q4H PRN PRN #180 ml 10/07/20 08/29/21 pantoprazole 40 mg PO DAILY@0730 #30 tab 10/07/20 08/29/21 sennosides [Senokot] 8.6 mg PO BID #60 tab 10/07/20 08/29/21 Incruse Ellipta 1 inh INHALATION DAILY 01/01/21 08/29/21 acetaminophen [Mapap Arthritis 650 mg PO BID 01/01/21 08/29/21 Pain] albuterol sulfate 2.5 mg INHALATION QID PRN 01/01/21 08/29/21 furosemide 20 mg PO DAILY 01/01/21 08/29/21 levalbuterol tartrate 2 puff INHALATION BID PRN 01/01/21 08/29/21 atorvastatin 80 mg PO DAILY 06/15/21 08/29/21 Eliquis 5 mg PO BID #71 tab 06/16/21 08/29/21 ondansetron HCl [Zofran] 4 mg PO Q8H PRN #20 tab 07/23/21 08/29/21 Previous Rx's Medication Instructions Recorded docusate sodium [Colace] 100 mg PO BID #60 cap 10/07/20 guaifenesin [Mucinex] 600 mg PO BID PRN PRN #20 tab 10/07/20 ipratropium-albuterol 3 ml UPD Q4H PRN PRN #180 ml 10/07/20 pantoprazole 40 mg PO DAILY@0730 #30 tab 10/07/20 sennosides [Senokot] 8.6 mg PO BID #60 tab 10/07/20 Eliquis 5 mg PO BID #71 tab 06/16/21 ondansetron HCl [Zofran] 4 mg PO Q8H PRN #20 tab 07/23/21 Allergies Allergy/AdvReac Type Severity Reaction Status Date / Time Penicillins Allergy Intermediate Swelling/Ed Verified 08/29/21 21:57 demond Bees Allergy Uncoded 08/29/21 21:57 General Stated Complaint: Abd Prob KAYA: 3 Review of Systems All systems reviewed & are unremarkable except as noted in HPI and below PFSH Medical History Aneurysm of infrarenal abdominal aorta Cholelithiasis CKD (chronic kidney disease) stage 3, GFR 30-59 ml/min COPD (chronic obstructive pulmonary disease) Diverticulosis Failure to thrive in adult Fracture of both ankles Hallucinations Hearing loss History of blood transfusion Hx of diabetes mellitus Hx of hyperlipidemia Hypertension Hypothyroidism Low back pain Memory impairment Non-insulin dependent diabetes mellitus Noncompliance with medication regimen Obesity Osteoarthritis of right knee Pain, joint, knee, right Seborrheic keratosis Smoker Urinary tract infection Surgical History History of bilateral tubal ligation History of hernia repair Family History Father Diabetes Social History Smoking/Tobacco Use Status: Current every day Tobacco Type: cigarettes Years smoked: 15 Tobacco: How many years used: 15 Counseling given: provider counseling and support medications Smoking risk assessment performed?: Yes Alcohol Intake: never Drug use: Never Substance use type: does not use Household members: none Housing: apartment Number of Children: 3 number of grandchildren: 1 What is your relationship status?: Panel score (0-1 are the most socially isolated patients): 0 What type of physical activity do you participate in: walking Seatbelt use: always Do you feel safe at home: Yes Do you feel safe in your relationship?: Yes Exam Narrative Exam Narrative: 1.Const: Well-nourished, Well-developed, appearing stated age 2.Eyes: PERRL, no conjunctival injection, and symmetrical lids. 3.ENT: Atraumatic external nose and ears. Moist MM. Neck: Symmetric, trachea midline, No thyromegaly. 4.CVS: +S1/S2, No murmurs or gallops. Peripheral pulses 2+ and equal in all extremities. Brisk capillary refill in all extremities. 5.RESP: Wheezes throughout, questionable crackles at the bases. 6.GI: Notable old midline abdominal scar, no redness or tenderness on this. Reproducible left lower quadrant tenderness, no rebound. No pain in the right lower quadrant or epigastric regions. 7.MSK: Normocephalic/Atraumatic, Extremities w/o deformity or ttp No cyanosis or clubbing, Normal movement of all extremities 8.Skin: Warm, Dry. No rashes or lesions. 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 Sensation grossly intact, no focal neurologic deficits. 10.Psych: (AAO) x3. Appropriate mood and affect Course Vital Signs Vital signs: Vital Signs Temperature 36.5 C 08/29/21 21:54 Pulse 104 H 08/29/21 21:54 Respiratory Rate 26 H 08/29/21 21:54 Blood Pressure 156/56 H 08/29/21 21:54 Pulse Oximetry 93 08/29/21 21:54 Temperature 36.5 C 08/29/21 21:54 Temperature Source Temporal Artery Scan 08/29/21 21:54 Pulse 104 H 08/29/21 21:54 Respiratory Rate 26 H 08/29/21 21:54 Blood Pressure 156/56 H 08/29/21 21:54 Pulse Oximetry 93 08/29/21 21:54 Oxygen Delivery Method Room Air 08/29/21 21:54 Oxygen Flow Rate 0 08/29/21 21:54 Pain Level 8 08/29/21 21:54 Lab/Test Results Lab/Test Results: Laboratory Tests Range/Units 08/29/21 08/29/21 22:27 22:27 WBC (4.4-10.8) 10^3/uL 6.68 RBC (3.93-5.22) 10^6/uL 4.17 Hgb (11.2-15.7) g/dL 11.5 Hct (36.0-46.0) % 37.5 MCV (80-95) fL 89.9 MCH (27.0-33.0) pg 27.6 MCHC (32.0-36.0) % 30.7 L RDW (11.7-14.6) % 14.6 Plt Count (130-400) 10^3/uL 158 MPV (8.0-11.0) fL 11.1 H Immature Gran % 0.1 Neutrophils % 61.0 Lymphocytes % 27.2 Monocytes % 8.4 Eosinophils % 3.0 Basophils % 0.3 Nucleated RBC % % 0 Absolute Neutrophils (1.2-6.7) 10^3/uL 4.07 Absolute Lymphocytes (1.2-3.4) 10^3/uL 1.82 Absolute Monocytes (0.1-0.8) 10^3/uL 0.56 Absolute Eosinophils (0.0-0.7) 10^3/uL 0.20 Absolute Basophils (0.0-0.2) 10^3/uL 0.02 VBG Lactate (0.6-1.4) mmol/L 0.8
[2021-08-29 22:51] LABS: ALT 20 U/L (14-59); AST 13 U/L (15-37); Albumin 3.2 g/dL (3.4-5.0); Alkaline Phosphatase 110 U/L (46-116); Anion Gap 5.6 mmol/L (3-11); BUN 37 mg/dL (7-18); Bilirubin, Total 0.2 mg/dL (0.2-1.0); CO2 30.4 mmol/L (21.0-32.0); CREATININE 1.2 mg/dL (0.55-1.02); Calcium 9.1 mg/dL (8.5-10.1); Chloride 109 mmol/L (98-107); Estimated GFR 43.91 (mL/min/1.73m2); Glucose 122 mg/dL (74-106); Lipase 64 U/L (73-393); Potassium 4.4 mmol/L (3.5-5.1); Sodium 145 mmol/L (136-145); Total Protein 7.1 g/dL (6.4-8.2)
[2021-08-29] MEDS: Omnipaque 350 MG/ML 100 ML BTL IJ (23:10)
[2021-08-29] MEDS: Normal Saline Flush 10 ML SYR IVP (23:16)
[2021-08-29] MEDS: Normal Saline - Diluent 50 ML VIAL IV (23:16)
[2021-08-30] VITALS (40 sets, daily range): BP systolic 119–162; BP diastolic 58–79; PULSE 79–107; RESP 15–28; TEMP 36.2–36.5; O2SAT 85–94
--- NOTE | 2021-08-30 00:11 | DI.VRAD_ITS ---
PROCEDURE INFORMATION: Exam: CTA Abdomen and Pelvis With Contrast Exam date and time: 08/29/2021 21:58 Age: 76 years old Clinical indication: Abdominal pain; Localized; Left lower quadrant (llq); Prior surgery; Surgery date: 6+ months; Surgery type: Hernia repair, aorta graft, tubal ligation; Patient HX: Llq pain, nausea, HX of aaa TECHNIQUE: Imaging protocol: Computed tomographic angiography of the abdomen and pelvis with contrast material. 3D rendering (Not supervised by radiologist): MIP and/or 3D reconstructed images were created by the technologist. Radiation optimization: All CT scans at this facility use at least one of these dose optimization techniques: automated exposure control; mA and/or kV adjustment per patient size (includes targeted exams where dose is matched to clinical indication); or iterative reconstruction. Contrast material: OMNIPAQUE 350; Contrast volume: 100 ml; Contrast route: INTRAVENOUS (IV); COMPARISON: CT THORAX ABD/PEL CTA 06/15/2021 00:46 FINDINGS: Lungs: Minor atelectasis and probable bronchial wall thickening and distal small airways disease in the lung bases. Aorta: Postsurgical changes in the infrarenal aorta, satisfactory appearance. No aneurysm or dissection. Irregular atherosclerosis of the suprarenal aorta similar to prior. Celiac trunk and mesenteric arteries: Moderate chronic disease celiac trunk ostium similar to prior. SMA is mildly atherosclerotic and also patent. Renal arteries: Chronic atherosclerosis right and left renal arteries generally moderate in severity with multifocal at least mild stenosis similar to prior. The left renal artery potentially has been reimplanted. Right iliac arteries: No occlusion or significant stenosis. Left iliac arteries: No occlusion or significant stenosis. Other arteries: Chronic occasion fusiform dilation of the iliac arterial system similar to prior. No rupture. Liver: No hypervascular hepatic lesions. Gallbladder and bile ducts: No calcified stones. No ductal dilation. Pancreas: No mass. No ductal dilation. Spleen: No splenomegaly. Adrenal glands: No mass. Kidneys and ureters: No renal masses or hydronephrosis bilaterally. Stomach and bowel: Colonic diverticulosis without diverticulitis. Appendix: No evidence of appendicitis. Intraperitoneal space: No free air. No significant fluid collection. Lymph nodes: No enlarged lymph nodes. Urinary bladder: No mass. Reproductive: Unremarkable as visualized. Bones/joints: Degenerative changes in the spine. No acute fracture or subluxation. Soft tissues: Scarring ventral pelvic wall similar to prior. IMPRESSION: 1. No acute findings. Aortic and mesenteric findings are similar to prior. 2. Incidental findings as described. Dictated and Authenticated by: Bety Miguel MD. Ordering:YANIQUE Mohamud MD
[2021-08-30 00:53] LABS: Bilirubin Negative (Negative); Blood Trace-intact (Negative); Clarity Clear (Clear); Glucose Negative (Negative); Ketones Negative (Negative); Leukocyte Esterase Negative (Negative); Nitrite Negative (Negative); Urobilinogen 0.2 EU/dL (Up TO 0.2); pH 6.5 (5-8)
[2021-08-30 01:14] LABS: Bacteria Rare HPF (Negative); C & S Indicated? No; Casts Negative LPF (Negative); Crystals Negative HPF (Negative); Epithelial Cells Few HPF (Negative); Mucus Negative (Negative); WBC 0-2 HPF (0-5)
--- NOTE | 2021-08-30 01:15 | DI.RAD_ITS ---
Exam(s) XR PORTABLE CHEST AP EXAM: XR PORTABLE CHEST AP CLINICAL HISTORY: sob. TECHNIQUE: 2D digital imaging was performed. COMPARISON: CR,XR XR PORTABLE CHEST AP from 10/04/2020 FINDINGS: Heart size is upper normal. The mediastinum is not widened. Chest leads in place. Mild increased markings in the left lung base are noted. Right lung is clear. No pleural effusions. No pneumothorax. IMPRESSION: Mild infiltrate in the left lung base. No pleural effusions. DATA REPOSITORY: RADIATION DOSE DELIVERED: All CT scans at this facility use at least one of these dose optimization techniques: automated exposure control; mA and/or kV adjustment per patient size (includes targeted e xams where dose is matched to clinical indication); or iterative reconstruction.
--- NOTE | 2021-08-30 01:39 | NUR.NOTE ---
Pt unable to maintain oxygen saurations >90% on RA. 2L NC applied.
--- NOTE | 2021-08-30 01:56 | DI.VRAD_ITS ---
PROCEDURE INFORMATION: Exam: XR Chest Exam date and time: 08/30/2021 01:28 Age: 76 years old Clinical indication: Shortness of breath; Patient HX: SOB TECHNIQUE: Imaging protocol: XR of the chest. Views: 1 view. COMPARISON: CT THORAX ABD/PEL CTA 06/15/2021 00:46 FINDINGS: Lungs: Minor scattered interstitial thickening without airspace consolidation. Pleural spaces: No pleural effusion. No pneumothorax. Heart/Mediastinum: No cardiomegaly. Bones/joints: No acute fracture. IMPRESSION: Interstitial thickening may reflect bronchitis or atypical infection. Dictated and Authenticated by: Bety Miguel MD. Ordering:YANIQUE Mohamud MD
[2021-08-30] MEDS: DOXYCYCLINE 100 MG in Normal Saline 100 ML IVPB ×2 (02:30→12:53)
[2021-08-30 02:32] LABS: Source Nasal/Nares
--- NOTE | 2021-08-30 03:12 | W.PM.HP.N ---
Date of service: 08/30/21 Time of Service: 03:12 Assessment and Plan Assessment and plan (1) Community acquired pneumonia: Status: Acute Assessment and plan: doxycycline, rocephin, steroids, bronchodilators, oxygen (now on room air), pulmonary toiletry, check sputum C&S if able to obtain Qualifiers: Laterality: right Lung location: lower lobe of lung Qualified Code(s): J18.9 - Pneumonia, unspecified organism (2) COPD (chronic obstructive pulmonary disease): Status: Chronic Assessment and plan: cont. home inhalers (Incruse Ellipta) in addition to adding DuoNeb aerosols, steroids and antibiotics as above Qualifiers: COPD type: unspecified COPD Qualified Code(s): J44.9 - Chronic obstructive pulmonary disease, unspecified (3) Abdominal pain: Status: Acute Assessment and plan: probable d/t constipation Qualifiers: Abdominal location: generalized Qualified Code(s): R10.84 - Generalized abdominal pain (4) Constipation: Status: Chronic Assessment and plan: will give stool softeners, dulcolax, miralax and enama Qualifiers: Constipation type: unspecified constipation type Qualified Code(s): K59.00 - Constipation, unspecified (5) Pulmonary embolism: Status: Chronic Assessment and plan: cont. Eliquis Qualifiers: Pulmonary embolism type: multiple subsegmental (without acute cor pulmonale) Qualified Code(s): I26.94 - Multiple subsegmental pulmonary emboli without acute cor pulmonale (6) Non-insulin dependent diabetes mellitus: Status: Chronic Assessment and plan: monitor glucose AC/HS and put on sliding scale; check A1c History of Present Illness History of Present Illness Chief Complaint: dyspnea, nausea and vomiting Narrative: 76 yr old female smoker (onset age 18, 8 cigarettes per day), hx COPD, PE (chronically anticoagulated w/ Eliquis), HTN, DM (reportedly on medications but none listed here), HLD, CKD, hypothyroidism, AAA who presented to the ER w/ complaints of dyspnea and nausea along w/ constipation (last BM 2 days ago). She was found to be hypoxemic w/ SPO2 of 83% along w/ diffuse wheezing and coughing. Workup in the ER included routine labs (CBC, lactate, CMP, lipase and SARS-COV2 PCR, which was negative), CXR. Chest xray demonstrated mild infiltrate in the left lung base, no pleural effusion, right lung is clear. Heart is upper limits of normal. labs were remarkable for mild azotemia (BUN 37, creatinine 1.2), no leukocytosis, and no anemia. Lactate was normal at 0.8. Patient was treated w/ DuoNeb aerosols, zofran, solumedrol 125 mg, and doxycycline. Her hypoxemia corrected w/ supplemental oxygen NC @ 2 LPM. She is admitted for treatment of CAP. She is fully vaccinated w/ Moderna for SARS-COV2. She continues to smoke about 8 cigarettes per day. She denies any alcohol consumption. Review of Systems All systems reviewed & are unremarkable except as noted in HPI and below PFSH Medical History Aneurysm of infrarenal abdominal aorta Cholelithiasis CKD (chronic kidney disease) stage 3, GFR 30-59 ml/min COPD (chronic obstructive pulmonary disease) Diverticulosis Failure to thrive in adult Fracture of both ankles Hallucinations Hearing loss History of blood transfusion Hx of diabetes mellitus Hx of hyperlipidemia Hypertension Hypothyroidism Low back pain Memory impairment Non-insulin dependent diabetes mellitus Noncompliance with medication regimen Obesity Osteoarthritis of right knee Pain, joint, knee, right Seborrheic keratosis Smoker Urinary tract infection Surgical History History of bilateral tubal ligation History of hernia repair Family History Father Diabetes Social History Smoking/Tobacco Use Status: Current every day Tobacco Type: cigarettes Years smoked: 15 Tobacco: How many years used: 15 Counseling given: provider counseling and support medications Smoking risk assessment performed?: Yes Alcohol Intake: never Drug use: Never Substance use type: does not use Household members: none Housing: apartment Number of Children: 3 number of grandchildren: 1 What is your relationship status?: Panel score (0-1 are the most socially isolated patients): 0 What type of physical activity do you participate in: walking Seatbelt use: always Do you feel safe at home: Yes Do you feel safe in your relationship?: Yes Meds Allergies and Home Medications Allergies Allergy/AdvReac Type Severity Reaction Status Date / Time Penicillins Allergy Intermediate Swelling/Ed Verified 08/29/21 21:57 demond Bees Allergy Uncoded 08/29/21 21:57 Home Medications Medication Instructions Recorded Confirmed Type amlodipine 2.5 mg PO DAILY 09/22/20 08/29/21 History aspirin 81 mg PO DAILY 09/22/20 08/29/21 History levothyroxine 125 mcg PO DAILY 09/22/20 08/29/21 History pravastatin 20 mg PO DAILY 09/22/20 08/29/21 History docusate sodium [Colace] 100 mg PO BID #60 cap 10/07/20 08/29/21 Rx guaifenesin [Mucinex] 600 mg PO BID PRN PRN #20 tab 10/07/20 08/29/21 Rx ipratropium-albuterol 3 ml UPD Q4H PRN PRN #180 ml 10/07/20 08/29/21 Rx pantoprazole 40 mg PO DAILY@0730 #30 tab 10/07/20 08/29/21 Rx sennosides [Senokot] 8.6 mg PO BID #60 tab 10/07/20 08/29/21 Rx Incruse Ellipta 1 inh INHALATION DAILY 01/01/21 08/29/21 History acetaminophen [Mapap Arthritis 650 mg PO BID 01/01/21 08/29/21 History Pain] albuterol sulfate 2.5 mg INHALATION QID PRN 01/01/21 08/29/21 History furosemide 20 mg PO DAILY 01/01/21 08/29/21 History levalbuterol tartrate 2 puff INHALATION BID PRN 01/01/21 08/29/21 History atorvastatin 80 mg PO DAILY 06/15/21 08/29/21 History Eliquis 5 mg PO BID #71 tab 06/16/21 08/29/21 Rx ondansetron HCl [Zofran] 4 mg PO Q8H PRN #20 tab 07/23/21 08/29/21 Rx Exam Narrative Exam Narrative: Morbidly obese female who is alert, oriented x 3, no acute respiratory distress, no using accessory respiratory muscles HEENT: unremarkable, AT/NC, PERRLA/EMOI, TM obscured by excess cerumen; sinuses nontender, nares moist, oropharynx w/out edema or erythema or exudate; poor dentition\ Neck: supple, no JVD, no adenopathy, no thyromegaly; normal carotid pulses Lungs: left base w/ rhonchi and wheezing; right clear Heart: RRR, no murmur,rub or gallop Abdomen: obese, soft, nontender to palpation; midline scar from prior laparotomy; no palpable masses or organomegaly Extremities: no edema or cyanosis; normal pedal pulses Neuro: no focal CN deficits, normal motor and sensory exam Results Imaging Chest x-ray: report reviewed Labs Result diagrams: 08/29/21 22:27 08/29/21 22:27 Labs: Laboratory Results - last 24 hr 08/29/21 08/29/21 08/29/21 22:27 22:27 22:27 WBC 6.68 RBC 4.17 Hgb 11.5 Hct 37.5 MCV 89.9 MCH 27.6 MCHC 30.7 L RDW 14.6 Plt Count 158 MPV 11.1 H Immature Gran % 0.1 Neutrophils % 61.0 Lymphocytes % 27.2 Monocytes % 8.4 Eosinophils % 3.0 Basophils % 0.3 Nucleated RBC % 0 Absolute Neutrophils 4.07 Absolute Lymphocytes 1.82 Absolute Monocytes 0.56 Absolute Eosinophils 0.20 Absolute Basophils 0.02 VBG Lactate 0.8 Sodium 145 Potassium 4.4 Chloride 109 H Carbon Dioxide 30.4 Anion Gap 5.6 BUN 37 H Creatinine 1.2 H Estimated GFR/1.73 m2 43.91 Glucose 122 H Calcium 9.1 Total Bilirubin 0.2 AST 13 L ALT 20 Alkaline Phosphatase 110 Total Protein 7.1 Albumin 3.2 L Lipase 64 Urine Color Urine Clarity Urine pH Ur Specific [place] Urine Protein Urine Ketones Urine Blood Urine Nitrite Urine Bilirubin Urine Urobilinogen Ur Leukocyte Esterase Urine RBC Urine WBC Ur Epithelial Cells Urine Crystals Urine Bacteria Urine Casts Urine Mucus Ur Culture Indicated? Urine Glucose COVID-19 Source 08/30/21 08/30/21 00:38 02:18 WBC RBC Hgb Hct MCV MCH MCHC RDW Plt Count MPV Immature Gran % Neutrophils % Lymphocytes % Monocytes % Eosinophils % Basophils % Nucleated RBC % Absolute Neutrophils Absolute Lymphocytes Absolute Monocytes Absolute Eosinophils Absolute Basophils VBG Lactate Sodium Potassium Chloride Carbon Dioxide Anion Gap BUN Creatinine Estimated GFR/1.73 m2 Glucose Calcium Total Bilirubin AST ALT Alkaline Phosphatase Total Protein Albumin Lipase Urine Color Yellow Urine Clarity Clear Urine pH 6.5 Ur Specific [place] 1.020 Urine Protein Negative Urine Ketones Negative Urine Blood Trace-intact H Urine Nitrite Negative Urine Bilirubin Negative Urine Urobilinogen 0.2 Ur Leukocyte Esterase Negative Urine RBC 3-5 H Urine WBC 0-2 Ur Epithelial Cells Few Urine Crystals Negative Urine Bacteria Rare Urine Casts Negative Urine Mucus Negative Ur Culture Indicated? No Urine Glucose Negative COVID-19 Source Nasal/Nares Last Vital Signs Temp 36.5 C 08/29/21 21:54 Pulse 100 H 08/30/21 01:31 Resp 24 08/30/21 01:31 BP 133/61 08/30/21 01:31 Pulse Ox 93 08/30/21 01:31
[2021-08-30 03:22] LABS: COVID-19 PCR Negative (Negative)
[2021-08-30] MEDS: Lactated Ringers 1,000 ML 85 ML IV (04:57)
[2021-08-30] MEDS: Levothyroxine 25 MCG TAB (05:49)
[2021-08-30] MEDS: Levothyroxine 100 MCG TAB (05:49)
[2021-08-30] MEDS: cefTRIAXone 2 GM/50 ML BAG IV (05:58)
[2021-08-30] MEDS: Acetaminophen 325 MG TAB 650 MG PO ×2 (07:49→21:26)
[2021-08-30] MEDS: Aspirin E.C. 81 MG TABEC PO (07:49)
[2021-08-30] MEDS: Docusate Sodium 100 MG CAP PO ×2 (07:50→21:25)
[2021-08-30] MEDS: Pantoprazole 40 MG TABCR PO (07:50)
[2021-08-30] MEDS: Normal Saline Flush 10 ML SYR IVP ×3 (07:51→16:34)
[2021-08-30] MEDS: Senna TAB 1 TAB PO ×2 (07:51→21:27)
[2021-08-30] MEDS: Apixaban 5 MG TAB PO ×2 (07:51→21:27)
[2021-08-30] MEDS: predniSONE 20 MG TAB 40 MG PO (07:51)
[2021-08-30] MEDS: amLODIPine 2.5 MG TAB PO (09:48)
--- NOTE | 2021-08-30 10:35 | INITIAL_ITS ---
- If Service Date Differs Date of service: 08/30/21 Time of Service: 10:35 Care Management Initial Assess REASON FOR HOSPITALIZATION:: Pneumonia PAST MEDICAL HISTORY/PAST SURGICAL HISTORY:: Medical History . Aneurysm of infrarenal abdominal aorta. Cholelithiasis. CKD (chronic kidney disease) stage 3, GFR 30-59 ml/min. COPD (chronic obstructive pulmonary disease). Diverticulosis. Failure to thrive in adult. Fracture of both ankles. Hallucinations. Hearing loss. History of blood transfusion. Hx of diabetes mellitus. Hx of hyperlipidemia. Hypertension. Hypothyroidism. Low back pain. Memory impairment. Non-insulin dependent diabetes mellitus. Noncompliance with medication regimen. Obesity. Osteoarthritis of right knee. Pain, joint, knee, right. Seborrheic keratosis. Smoker. Urinary tract infection. Surgical History . History of bilateral tubal ligation. History of hernia repair PREVIOUS FUNCTIONAL STATUS/SOCIAL/FAMILY SUPPORTS:: Fabiola lives alone in an apartment in [facility]. She receives Meals on Wheels and uses [facility] for trasnsportation but receives no other home services. Fabiola has 3 sons; one lives in [place], one lives in [place] and the third lives in [place]. She also has one granddaughter in [place]. Fabiola stated that she does have friends in the area who help her out. The son who lives in [place], one of her twins, is a section weaver and she does not get to see him often. CURRENT FUNCTIONAL STATUS:: Fabiola was sitting up in bed when CM met with her. She was complaining of pain from a duane in her left leg and stated that she had not been medicated for this. CM contacted the provider who plans to address the issue. After answering a few questions, Fabiola was disinclined to converse further. ADVANCE DIRECTIVES:: none on file Has patient been provided with info about the portal/API?: Yes Did the patient sign up for the portal?: No CODE STATUS:: Full Code INSURANCE COVERAGE / FINANCIAL ISSUES:: [facility] HMO (Medicare replacement) CURRENT HOME/COMMUNITY SERVICES/EQUIPMENT:: Fabiola has a cane and uses [facility] for transportation PRIMARY CARE PHYSICIAN:: Kathleen Koshowski POTENTIAL DISCHARGE NEEDS:: Followup with PCP and discharge plan of care PATIENT/FAMILY EDUCATION NEEDS:: Review of discharge instructions, medications, activity, limitations, Ask Me Three TRANSPORTATION:: via [facility] coordinated by CM PLAN:: Fabiola will likely be discharged home, possibly with new home health services. She will follow up with her PCP and discharge plan of care. CM will continue to support Fabiola and her discharge needs.
[2021-08-30] MEDS: Polyethylene Glycol 3350 17 GM PACKET PO (11:07)
[2021-08-30 11:09] LABS: Hemoglobin A1C 6.4 % (<5.7)
[2021-08-30] MEDS: Bisacodyl 10 MG SUPP PR (11:36)
[2021-08-30] MEDS: Insulin Aspart 300 UNITS/3 ML PEN SC ×3 (12:23→21:29)
[2021-08-30] MEDS: Ondansetron 4 MG TAB PO (12:24)
--- NOTE | 2021-08-30 14:04 | IN_ITS ---
PT Notes Visit Reasons: Pneumonia,Abdominal Pain Physical Therapy Inpatient Initial Evaluation Date: 08/30/21 Referring Doctor: Sandeep Blanton PT Orders: PT CONSULT Precautions: Fall. Standard. Patient Profile/Admitting Diagnosis: Abdominal Pain PMHX: Medical History Aneurysm of infrarenal abdominal aorta Cholelithiasis CKD (chronic kidney disease) stage 3, GFR 30-59 ml/min COPD (chronic obstructive pulmonary disease) Diverticulosis Failure to thrive in adult Fracture of both ankles Hallucinations Hearing loss History of blood transfusion Hx of diabetes mellitus Hx of hyperlipidemia Hypertension Hypothyroidism Low back pain Memory impairment Non-insulin dependent diabetes mellitus Noncompliance with medication regimen Obesity Osteoarthritis of right knee Pain, joint, knee, right Seborrheic keratosis Smoker Urinary tract infection Surgical History History of bilateral tubal ligation History of hernia repair Social History/Home Situation: Pt lives alone in an apartment, states there are no stairs for entry. Equipment Owned/DME: SPC Subjective: Cleared by nursing to see patient and patient is agreeable to PT. Patient received semi-fowlers. Objective: General Observation: Pt appears in some distress/discomfort with some facial grimacing. Mental Status: A&O x3 Pain: Pt reports abdominal and leg pain/cramping of 9/10 at rest Vitals: BP: 135/71 HR: 87 SpO2: 90% on RA ROM: Right Upper Extremity: Shoulder Flexion WFL. Shoulder abduction WFL. Elbow flexion WFL. Wrist flexion WFL. Opening and closing of hand WFL. Left Upper Extremity: Shoulder Flexion WFL. Shoulder abduction WFL. Elbow flexion WFL. Wrist flexion WFL. Opening and closing of hand WFL. Right Lower Extremity: Hip flexion WFL. Hip abduction WFL. Knee flexion WFL. Ankle dorsiflexion WFL. Ankle plantarflexion WFL. Left Lower Extremity: Hip flexion WFL. Hip abduction WFL. Knee flexion WFL. Ankle dorsiflexion WFL. Ankle plantarflexion WFL. Strength: Right Upper Extremity: Shoulder flexors 4/5. Shoulder abductors WFL. Elbow flexors WFL. Elbow extensors WFL. Consumer Loan Underwriter strong. Left Upper Extremity: Shoulder flexors 4/5. Shoulder abductors WFL. Elbow flexors WFL. Elbow extensors WFL. Consumer Loan Underwriter strong. Right Lower Extremity: Hip flexors 5/5. Knee flexors 5/5. Knee extensors 5/5. Ankle dorsiflexors 5/5. Ankle plantarflexors 5/5. Left Lower Extremity: Hip flexors 5/5. Knee flexors 5/5. Knee extensors 5/5. Ankle dorsiflexors 5/5. Ankle plantarflexors 5/5. Sensation: Intact as to pain and pressure on bilateral lower extremities. Bed Mobility/Transfers: Rolling: I Supine to sit: I Sit to supine: I Sit to stand: I Stand to sit: I Bed to chair: Min contact assist x1 utilizing FWW Chair to bed: Min contact assist x1 utilizing FWW Gait: Ambulated 10ft with min contact assist x1 utilizing FWW and assist for management of IV Balance: Static Sitting: WNL Dynamic Sitting: WNL Static Standing: Pt utilizes FWW - not tested otherwise Special Tests: Mobility Limitations Standardized Measure [facility] 6 clicks Basic Mobility Inpatient Short Form: Raw Score: 21 CMS Score: 29% Pt declined further physical therapy evaluation including orthostatic hypotension testing. Informed Consent/Education: Patient instructed in purpose of PT consult and plan of care. Assessment: Patient presents with clinical signs and symptoms consistent with current/admitting diagnoses that have resulted to mobility limitations, gait instability, generalized weakness, and impairment of motor control as demonstrated by the following impairment level findings: 1. Impaired activity tolerance Impairments are contributing to the following functional limitations: 1. Increased dependence with transfers 2. Inability to safely ambulate without assistive device and physical assistance 3. Increase completion time for mobility ADL performance 4. Increased fall risk Patient is assessed as a complexity based on the following: History: 76 year old female identifying person with impairment level findings, functional limitations, and past medical history as indicated above. Examination: Demonstrable impairment in balance and mobility level with underlying impairments and functional limitations as documented above. Pt also presents with symptoms consistent with vertigo and orthostatic hypotension, but declined further testing today. Presentation: Pt presents with limited tolerance to functional mobility, shortness of breath, and high levels of pain at rest and with mobilization. Decision Making: low complexity Goals: Goals x1 week 1. Bed-Chair: independent 2. Chair-Bed: independent 3. Independent gait on level surface with use of least restrictive device for at least 50 feet without report of pain 4. Independent stair negotiation while holding onto bilateral rails for at least 5 steps without report of pain 5. Independent with home exercise program 6. Good static and dynamic standing balance/tolerance Plan of Care/Treatment Plan: 1-2x/day, 7 days/week x 1 week. Plan of care has been reviewed with the EXTRUDER TENDER providing the service under Physical Therapy direction. Initiate Physical Therapy intervention for strengthening, bed mobility, transfers, gait, stairs, balance training, and use of assistive device. DISCHARGE RECOMMENDATIONS: Based on pt's mobility presentation pt is recommended discharge to home environment with recommendation that pt attend outpatient physical therapy for fall risk mitigation and management of vertigo. TREATMENT CODE/TIME: (30 minutes), [id number] Thank you for the opportunity to participate in the care of this patient.
[2021-08-30] MEDS: Nystatin POWDER 15 GM JAR TP ×2 (14:16→21:25)
[2021-08-30] MEDS: Acetaminophen 325 MG TAB PO (14:16)
--- NOTE | 2021-08-30 15:15 | W.PM.PROGNOT ---
Date of Service Date of service: 08/30/21 Time of Service: 15:15 Subjective Subjective Interval history since last seen: The patient reports suprapubic pain as well as dysuria starting this morning. She had a negative UA on presentation but we are repeating it. I will also obtain a bladder scan. The patient reports painful calf spasms in left leg. Will trial valium and encourage tonic water. The patient sounded wet on her exam - both rhonchi and rales. Will d/c IVF and give 1 dose of lasix 20 mg IV. Objective Last Vital Signs Temp 36.5 C 08/30/21 03:51 Pulse 94 H 08/30/21 03:51 Resp 22 08/30/21 03:51 BP 131/71 08/30/21 03:51 Pulse Ox 91 L 08/30/21 08:00 Laboratory Results - last 24 hr 08/29/21 08/29/21 08/29/21 22:27 22:27 22:27 WBC 6.68 RBC 4.17 Hgb 11.5 Hct 37.5 MCV 89.9 MCH 27.6 MCHC 30.7 L RDW 14.6 Plt Count 158 MPV 11.1 H Immature Gran % 0.1 Neutrophils % 61.0 Lymphocytes % 27.2 Monocytes % 8.4 Eosinophils % 3.0 Basophils % 0.3 Nucleated RBC % 0 Absolute Neutrophils 4.07 Absolute Lymphocytes 1.82 Absolute Monocytes 0.56 Absolute Eosinophils 0.20 Absolute Basophils 0.02 VBG Lactate 0.8 Sodium 145 Potassium 4.4 Chloride 109 H Carbon Dioxide 30.4 Anion Gap 5.6 BUN 37 H Creatinine 1.2 H Estimated GFR/1.73 m2 43.91 Glucose 122 H Hemoglobin A1c Calcium 9.1 Total Bilirubin 0.2 AST 13 L ALT 20 Alkaline Phosphatase 110 Total Protein 7.1 Albumin 3.2 L Lipase 64 Urine Color Urine Clarity Urine pH Ur Specific [place] Urine Protein Urine Ketones Urine Blood Urine Nitrite Urine Bilirubin Urine Urobilinogen Ur Leukocyte Esterase Urine RBC Urine WBC Ur Epithelial Cells Urine Crystals Urine Bacteria Urine Casts Urine Mucus Ur Culture Indicated? Urine Glucose COVID-19 Source SARS-CoV-2 (PCR) 08/29/21 08/30/21 08/30/21 22:27 00:38 02:18 WBC RBC Hgb Hct MCV MCH MCHC RDW Plt Count MPV Immature Gran % Neutrophils % Lymphocytes % Monocytes % Eosinophils % Basophils % Nucleated RBC % Absolute Neutrophils Absolute Lymphocytes Absolute Monocytes Absolute Eosinophils Absolute Basophils VBG Lactate Sodium Potassium Chloride Carbon Dioxide Anion Gap BUN Creatinine Estimated GFR/1.73 m2 Glucose Hemoglobin A1c 6.4 H Calcium Total Bilirubin AST ALT Alkaline Phosphatase Total Protein Albumin Lipase Urine Color Yellow Urine Clarity Clear Urine pH 6.5 Ur Specific [place] 1.020 Urine Protein Negative Urine Ketones Negative Urine Blood Trace-intact H Urine Nitrite Negative Urine Bilirubin Negative Urine Urobilinogen 0.2 Ur Leukocyte Esterase Negative Urine RBC 3-5 H Urine WBC 0-2 Ur Epithelial Cells Few Urine Crystals Negative Urine Bacteria Rare Urine Casts Negative Urine Mucus Negative Ur Culture Indicated? No Urine Glucose Negative COVID-19 Source Nasal/Nares SARS-CoV-2 (PCR) Negative 08/30/21 02:25 WBC RBC Hgb Hct MCV MCH MCHC RDW Plt Count MPV Immature Gran % Neutrophils % Lymphocytes % Monocytes % Eosinophils % Basophils % Nucleated RBC % Absolute Neutrophils Absolute Lymphocytes Absolute Monocytes Absolute Eosinophils Absolute Basophils VBG Lactate Sodium Potassium Chloride Carbon Dioxide Anion Gap BUN Creatinine Estimated GFR/1.73 m2 Glucose Hemoglobin A1c Calcium Total Bilirubin AST ALT Alkaline Phosphatase Total Protein Albumin Lipase Urine Color Urine Clarity Urine pH Ur Specific [place] Urine Protein Urine Ketones Urine Blood Urine Nitrite Urine Bilirubin Urine Urobilinogen Ur Leukocyte Esterase Urine RBC Urine WBC Ur Epithelial Cells Urine Crystals Urine Bacteria Urine Casts Urine Mucus Ur Culture Indicated? Urine Glucose COVID-19 Source Cancelled SARS-CoV-2 (PCR) Cancelled
[2021-08-30] MEDS: diazePAM 2 MG TAB PO (16:32)
[2021-08-30] MEDS: Furosemide 20 MG/2 ML VIAL IVP (16:36)
[2021-08-30] MEDS: Atorvastatin 40 MG TAB 80 MG PO (21:27)
[2021-08-31] VITALS (16 sets, daily range): BP systolic 119–171; BP diastolic 63–84; PULSE 66–89; RESP 4–19; TEMP 36–36.6; O2SAT 92–96
--- NOTE | 2021-08-31 | DI.RAD_ITS ---
Exam(s) XR KNEE RT 3V AP,LAT,ROSEANN EXAM: XR KNEE RT 3V AP,LAT,ROSEANN CLINICAL HISTORY: fall TECHNIQUE: COMPARISON: CR XR KNEE RT 3V AP,LAT,ROSEANN from 05/12/2020 FINDINGS: Three views were obtained. There is medial subluxation of the femur on the tibia. There is moderate to severe loss of the cartilaginous joint space of the medial tibiofemoral joint and there may be na rrowing of cartilaginous joint space of patellofemoral joint as well. There are very prominent marginal osteophytes involving all 3 joints of the knee. There appear to be multiple loose joint bodies projected posteriorly. IMPRESSION: Severe DJD as described above. No evidence of acute fracture. RADIATION DOSE DELIVERED: Total DLP
[2021-08-31] MEDS: DOXYCYCLINE 100 MG in Normal Saline 100 ML IVPB ×3 (01:07→23:36)
[2021-08-31] MEDS: Normal Saline Flush 10 ML SYR IVP ×5 (01:54→22:30)
[2021-08-31] MEDS: Levothyroxine 125 MCG TAB PO (05:19)
[2021-08-31] MEDS: cefTRIAXone 2 GM/50 ML BAG IV (05:20)
[2021-08-31] MEDS: Aspirin E.C. 81 MG TABEC PO (07:53)
[2021-08-31] MEDS: Pantoprazole 40 MG TABCR PO (07:53)
[2021-08-31] MEDS: Apixaban 5 MG TAB PO ×2 (07:54→20:36)
[2021-08-31] MEDS: Docusate Sodium 100 MG CAP PO ×2 (07:54→20:35)
[2021-08-31] MEDS: Acetaminophen 325 MG TAB 650 MG PO ×2 (07:54→20:35)
[2021-08-31] MEDS: amLODIPine 2.5 MG TAB PO (07:54)
[2021-08-31] MEDS: predniSONE 20 MG TAB 40 MG PO (07:54)
[2021-08-31] MEDS: Senna TAB 1 TAB PO ×2 (07:54→20:35)
[2021-08-31] MEDS: Polyethylene Glycol 3350 17 GM PACKET PO (07:55)
[2021-08-31 08:23] LABS: Abs Immature Grans 0.03 10^3/uL (0.0-0.06); Absolute Basophil Count 0.02 10^3/uL (0.0-0.2); Absolute Eosinophil Count 0.02 10^3/uL (0.0-0.7); Absolute Monocyte Count 0.45 10^3/uL (0.1-0.8); Basophils % 0.2; Eosinophils % 0.2; HCT 38.4 % (36.0-46.0); Immature Grans % 0.3; Lymphocytes % 18.8; MCH 27.6 pg (27.0-33.0); MCHC 31.3 % (32.0-36.0); MCV 88.5 fL (80-95); MPV 11.5 fL (8.0-11.0); Monocytes % 4.1; Neutrophils % 76.4; Nucleated RBC 0 %; Platelet Count 152 10^3/uL (130-400); RBC 4.34 10^6/uL (3.93-5.22); RDW 14.6 % (11.7-14.6); RDW-SD 47.9 fL; WBC 10.88 10^3/uL (4.4-10.8)
[2021-08-31 08:28] LABS: Absolute Lymphocyte Count 2.05 10^3/uL (1.2-3.4); Absolute Neutrophil Count 8.31 10^3/uL (1.2-6.7)
[2021-08-31 08:35] LABS: Anion Gap 5.2 mmol/L (3-11); BUN 30 mg/dL (7-18); CO2 32.8 mmol/L (21.0-32.0); CREATININE 1.1 mg/dL (0.55-1.02); Calcium 9.2 mg/dL (8.5-10.1); Chloride 106 mmol/L (98-107); Estimated GFR 48.55 (mL/min/1.73m2); Glucose 100 mg/dL (74-106); Potassium 3.5 mmol/L (3.5-5.1); Sodium 144 mmol/L (136-145)
--- NOTE | 2021-08-31 09:28 | PDOC.CMPRO ---
- If Service Date Differs Date of service: 08/31/21 Time of Service: 09:28 Care Management Progress Note S/O:Fabiola was lying in bed when CM met with her. She was more awake and interactive today but complained of a headache. She informed CM that she had fallen this morning. When asked if she hit her head she denied it but since she told her nurse that she did, a CT of the head was done.It was negative. Fabiola worked with PT again today and was able to progress in gait distance A: Fabiola is a 76 year old woman admitted on 08/30/21 with pneumonia P:Fabiola will likely be discharged home, possibly with new home health services. She will follow up with her PCP and discharge plan of care. CM will continue to support Fabiola and her discharge needs.
[2021-08-31] MEDS: Nystatin POWDER 15 GM JAR TP ×2 (11:41→20:39)
[2021-08-31] MEDS: Ondansetron 4 MG/2 ML VIAL IVP ×2 (12:22→20:52)
--- NOTE | 2021-08-31 14:45 | DI.CT_ITS ---
Exam(s) CT HEAD WO EXAM: CT HEAD WO CLINICAL HISTORY: fall, hallucinations TECHNIQUE: COMPARISON: CT CT HEAD WO from 12/31/2020 FINDINGS: Noncontrast cranial CT was performed. There is mild generalized cerebral atrophy. There is a probab le small old right lacunar infarct, this appears to been present on prior examination of December. 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 O therwise the visualized paranasal sinuses and mastoid air cells are clear. The orbital and temporal bone structures appear intact. IMPRESSION: No evidence of acute intracranial process. RADIATION DOSE DELIVERED: 779.28mGy.cm Total DLP 37.08mGy CTDIvol RADIATION OPTIMIZATION: All CT scans at this facility use at least one of these dose optimization te chniques: automated exposure control; mA and/or kV adjustment per patient size (includes targeted exa ms where dose is matched to clinical indication); or iterative reconstruction.
--- NOTE | 2021-08-31 16:38 | PT.INTREAT ---
Date of service: 08/31/21 Time of Service: 11:03 PT Notes Visit Reasons: Pneumonia,Abdominal Pain Inpatient Physical Therapy Treatment Note [facility] Date: 08/31/2021 PRECAUTIONS: Activity as tolerated SUBJECTIVE: Fabiola states that she is feeling nauseous again today. She is willing to try to get up and walk. She states that she feels she is at her functional baseline at this time. OBJECTIVE: PAIN: No c/o pain BED MOBILITY/TRANSFERS Sit-stand: S Stand-sit: S GAIT Assistive Device: SPC Weight bearing: Full Assist: S Distance: 150' ASSESSMENT: Patient tolerated a progression in gait distance with SPC support and supervision. PLAN: Continue with global strengthening and general conditioning as needed for improved mobility. TREATMENT CODE/TIME: 10 minutes; 06604 (11:03)
[2021-08-31] MEDS: Albuterol/Ipratropium 3 ML UPD VIAL UPD ×2 (16:59→20:36)
--- NOTE | 2021-08-31 17:01 | W.PM.PROGNOT ---
Date of Service Date of service: 08/31/21 Time of Service: 17:01 Assessment and Plan Assessment and plan (1) Acute exacerbation of chronic obstructive pulmonary disease (COPD): Status: Acute Assessment and plan: Due to CAP, present on admission. Continue ceftriaxone/doxycycline. Continue prednisone. I have scheduled duonebs. Add symbicort to kay peñaloza while here. on room air but quite wheezy. (2) Community acquired pneumonia: Status: Acute Assessment and plan: Continue doxycycline, rocephin. Encourage IS/acapella. Improving. Qualifiers: Laterality: right Lung location: lower lobe of lung Qualified Code(s): J18.9 - Pneumonia, unspecified organism (3) Hallucinations: Status: Chronic Assessment and plan: The patient is vague about when this really started, but this was already happening at the time of her neurology evaluation in February of 2021. At the time, the patient was supposed to have an MRI of her brain which she never got. It was also the neurologist's opinion then that this sounded like a psychiatric issue, possibly depression with psychosis. Will obtain MRI brain w/w/o contrast. I have scheduled seroquel for tonight and am consulting psychiatry. This is not related to her fall today. (4) Fall: Status: Acute Assessment and plan: Consult PT. XR R knee negative (5) Abdominal pain: Status: Resolved Qualifiers: Abdominal location: generalized Qualified Code(s): R10.84 - Generalized abdominal pain (6) Constipation: Status: Chronic Assessment and plan: Continue bowel regimen Qualifiers: Constipation type: unspecified constipation type Qualified Code(s): K59.00 - Constipation, unspecified (7) Pulmonary embolism: Status: Chronic Assessment and plan: continue Eliquis Qualifiers: Pulmonary embolism type: multiple subsegmental (without acute cor pulmonale) Qualified Code(s): I26.94 - Multiple subsegmental pulmonary emboli without acute cor pulmonale (8) Non-insulin dependent diabetes mellitus: Status: Chronic Assessment and plan: Continue SSI. Euglycemic here. (9) DVT prophylaxis: Status: Acute Assessment and plan: ON therapeutic eliquis (10) Discharge planning issues: Status: Acute Assessment and plan: Full code Palliative care consulted. Subjective Subjective Interval history since last seen: Fabiola reported to nursing that she was hallucinating. To me, she stated that this started before she came to the hospital and has been going on for at least a month at home as well. She sees friends in the doorway - that's the example of hallucinations she is giving me. She fell today, initially denying that she hit her head, but then endorsing it. She also hit her right knee. CT head and XR knee were negative. She denies dizziness, headache, chest pain, nausea, abdominal pain. She does continue to endorse shortness of breath and wheezing. Exam Narrative Exam Narrative: General: Obese female who is laying comfortable in bed, A&Ox3, but appears distracted HEENT: EOMI, MMM Heart: RRR, no m/r/g Lungs: wheezing on expiration B Abdomen: soft, nontender, nondistended Extremities: trace edema BLE's Objective Last Vital Signs Temp 36.1 C L 08/31/21 15:56 Pulse 75 08/31/21 15:56 Resp 18 08/31/21 15:56 BP 149/79 H 08/31/21 15:56 Pulse Ox 96 08/31/21 15:56 Laboratory Results - last 24 hr 08/31/21 08/31/21 08:05 08:05 WBC 10.88 H RBC 4.34 Hgb 12.0 Hct 38.4 MCV 88.5 MCH 27.6 MCHC 31.3 L RDW 14.6 Plt Count 152 MPV 11.5 H Immature Gran % 0.3 Neutrophils % 76.4 Lymphocytes % 18.8 Monocytes % 4.1 Eosinophils % 0.2 Basophils % 0.2 Nucleated RBC % 0 Absolute Neutrophils 8.31 H Absolute Lymphocytes 2.05 Absolute Monocytes 0.45 Absolute Eosinophils 0.02 Absolute Basophils 0.02 Sodium 144 Potassium 3.5 Chloride 106 Carbon Dioxide 32.8 H Anion Gap 5.2 BUN 30 H Creatinine 1.1 H Estimated GFR/1.73 m2 48.55 Glucose 100 Calcium 9.2 Objective Narrative Objective Narrative: CT head: No evidence of acute intracranial process. CXR: Severe DJD as described above. No evidence of acute fracture.
[2021-08-31 18:05] LABS: Bilirubin Negative (Negative); Blood Negative (Negative); Clarity Clear (Clear); Glucose Negative (Negative); Ketones Negative (Negative); Leukocyte Esterase Negative (Negative); Nitrite Negative (Negative); Specific Gravity 1.025 (1.005-1.025); Urobilinogen 0.2 EU/dL (Up TO 0.2)
[2021-08-31] MEDS: Atorvastatin 40 MG TAB 80 MG PO (20:36)
[2021-08-31] MEDS: Budesonide/Formoterol 80/4.5 6.9 GM 60 PUFF INH IH (20:39)
[2021-08-31] MEDS: Insulin Aspart 300 UNITS/3 ML PEN SC (22:11)
[2021-08-31] MEDS: QUEtiapine 25 MG TAB PO (22:12)
[2021-09-01] MEDS: cefTRIAXone 2 GM/50 ML BAG IV (05:25)
[2021-09-01] MEDS: Levothyroxine 150 MCG TAB PO (05:25)
[2021-09-01] MEDS: Normal Saline Flush 10 ML SYR IVP ×2 (05:25→15:07)
[2021-09-01 07:26] LABS: Abs Immature Grans 0.02 10^3/uL (0.0-0.06); Absolute Basophil Count 0.02 10^3/uL (0.0-0.2); Absolute Eosinophil Count 0.03 10^3/uL (0.0-0.7); Absolute Monocyte Count 0.36 10^3/uL (0.1-0.8); Basophils % 0.3; Eosinophils % 0.4; HCT 38.7 % (36.0-46.0); HGB 11.9 g/dL (11.2-15.7); Immature Grans % 0.3; Lymphocytes % 29.2; MCH 27.5 pg (27.0-33.0); MCHC 30.7 % (32.0-36.0); MCV 89.4 fL (80-95); MPV 11.6 fL (8.0-11.0); Monocytes % 4.8; Nucleated RBC 0 %; Platelet Count 163 10^3/uL (130-400); RBC 4.33 10^6/uL (3.93-5.22); RDW 14.6 % (11.7-14.6); RDW-SD 47.8 fL; WBC 7.53 10^3/uL (4.4-10.8)
[2021-09-01] MEDS: diazePAM 2 MG TAB PO (07:31)
[2021-09-01 07:32] LABS: Absolute Neutrophil Count 4.89 10^3/uL (1.2-6.7)
[2021-09-01 07:33] LABS: Anion Gap 7.3 mmol/L (3-11); BUN 26 mg/dL (7-18); CO2 28.7 mmol/L (21.0-32.0); CREATININE 1.1 mg/dL (0.55-1.02); Chloride 107 mmol/L (98-107); Estimated GFR 48.55 (mL/min/1.73m2); Glucose 96 mg/dL (74-106); Magnesium 1.9 mg/dL (1.8-2.4); Potassium 3.5 mmol/L (3.5-5.1); Sodium 143 mmol/L (136-145)
[2021-09-01] MEDS: Pantoprazole 40 MG TABCR PO (07:35)
[2021-09-01 07:40] VITALS: BP 129/82; PULSE 85; RESP 14; TEMP 35.8; O2SAT 93
[2021-09-01] MEDS: Aspirin E.C. 81 MG TABEC PO (08:21)
[2021-09-01] MEDS: Apixaban 5 MG TAB PO ×2 (08:21→21:40)
[2021-09-01] MEDS: Senna TAB 1 TAB PO ×2 (08:21→21:40)
[2021-09-01] MEDS: Polyethylene Glycol 3350 17 GM PACKET PO ×2 (08:21→21:38)
[2021-09-01] MEDS: Docusate Sodium 100 MG CAP PO (08:21)
[2021-09-01] MEDS: predniSONE 20 MG TAB 40 MG PO (08:22)
[2021-09-01] MEDS: Acetaminophen 325 MG TAB 650 MG PO ×2 (08:23→21:39)
[2021-09-01] MEDS: amLODIPine 2.5 MG TAB PO (10:00)
[2021-09-01] MEDS: Nystatin POWDER 15 GM JAR TP ×3 (10:03→21:35)
[2021-09-01] MEDS: Budesonide/Formoterol 80/4.5 6.9 GM 60 PUFF INH IH ×2 (10:04→21:37)
[2021-09-01] MEDS: Umeclidinium 7 CAP INHALER 1 CAP IH (10:04)
--- NOTE | 2021-09-01 10:57 | CMPROGNOTE_ITS ---
- If Service Date Differs Date of service: 09/01/21 Time of Service: 10:57 Care Management Progress Note S/O:Fabiola was sitting up in a chair when CM met with her. She volunteered that she is feeling better today. CM asked about her hallucinations and she admitted that she has been having them for a while. A psychiatric consultation has been requested for her for later today. She is also scheduled to have an MRI. CM informed Fabiola that new home health nursing, PT, OT and VETERINARY MEDICINE DOCTOR has been recommended for her when she goes home. Fabiola stated that she agrees that she needs these services and the support it will provide her. A: Fabiola is a 76 year old woman admitted on 08/30/21 with pneumonia P:Fabiola will likely be discharged home with new home health services for RN, PT, OT and VETERINARY MEDICINE DOCTOR. She will follow up with her PCP and discharge plan of care and transport with RCT coordinated by [facility]. CM will continue to support Fabiola and her discharge needs.
--- NOTE | 2021-09-01 11:20 | NUR.NOTE ---
Nursing Note: QUETA Tobar had to hard document amLODIPine, given at 10:00 but was locked out of computer system during so couldn't save.
[2021-09-01 11:30] VITALS: PULSE 88; PULSE 90; RESP 16; O2SAT 92
[2021-09-01] MEDS: Gadoterate meglumine 20 ML VIAL IVP (13:33)
--- NOTE | 2021-09-01 13:40 | DI.MRI_ITS ---
Exam(s) MR BRAIN WO/W EXAM: MR BRAIN WO/W CLINICAL HISTORY: hallucinations. TECHNIQUE: Multiplanar multisequence MRI of the brain was performed. CONTRAST MATERIAL: IV Contrast: 20 ML of Dotarem contrast administered. COMPARISON: CT CT HEAD WO from 08/31/[address] HEAD WO from 08/31/2021 FINDINGS: Exam is limited by patient motion. VENTRICLES AND EXTRA AXIAL SPACES: Normal in size and morphology for the patient's age. HEMORRHAGE: None. CEREBRAL PARENCHYMA: No focus of restricted diffusion to suggest acute infarct. No space-occupying le bhargavi identified. White matter changes of small vessel disease. MIDLINE SHIFT: None. BRAINSTEM/CEREBELLUM: Normal. ENHANCEMENT: No suspicious enhancement identified. VISUALIZED PARANASAL SINUSES/MASTOIDS: Chronic mucous retention floor of right maxillary sinus. IMPRESSION: White matter changes consistent with small vessel disease. Chronic right maxillary sinus disease. DATA REPOSITORY:
--- NOTE | 2021-09-01 13:47 | PT.INTREAT ---
Date of service: 09/01/21 Time of Service: 11:08 PT Notes Visit Reasons: Pneumonia,Abdominal Pain Inpatient Physical Therapy Treatment Note [facility] Date: 09/01/2021 PRECAUTIONS: Activity as tolerated SUBJECTIVE: Fabiola states that she is feeling nauseous again today. She is willing to try to get up and walk. She states that she feels she is at her functional baseline at this time. OBJECTIVE: PAIN: No c/o pain BED MOBILITY/TRANSFERS Supine-sit: I Sit-supine: I Sit-stand: I Stand-sit: I GAIT Assistive Device: SPC Weight bearing: Full Assist: S Distance: 100' x2 Deviation: Minimal SOB, slow abraham, seated rest x1 STAIRS: Up/down 1x4 using B rails and a step-to pattern independently ASSESSMENT: Patient tolerated a progression in gait distance with SPC support and supervision, requiring seated rest due to SOB. PLAN: Continue with global strengthening and general conditioning as needed for improved mobility. TREATMENT CODE/TIME: 16 minutes; 34127 (11:08)
[2021-09-01] MEDS: DOXYCYCLINE 100 MG in Normal Saline 100 ML IVPB (13:49)
--- NOTE | 2021-09-01 14:52 | W.PSYCHCONSU ---
Date of service: 09/01/21 Time of Service: 14:52 History of Present Illness History of Present Illness Chief Complaint: I hear voices Narrative: 4 Hour Telepsychiatry consultation requested by Dr. Schaffer for evaluation of auditory ahllucinations an remanagement recommendations. Consent for telemedicine obtain and patient ID and location confirmed. In reposnse to questions about auditory halllucinations, she reports Hear people who aren't there. They say [place], come out and let me in. This occurs mostly at her home and she goes to look and no one is there. She reports it happens most days. It does not appear tooccur in toher places, though staff indicate she was reporting auditory hallucinations in the hospital yesterda. This was evaluated by neurology in February and felt to be psychiatric in nature. Her mental status exam was noted for a MOCA score of 17, suggesting modeerate cognitive impairment. An MRI Was recommend to better characterize and anatomical abnormalities that might account for dementia, but this has not been done. As for mood symptoms, she rporets some depression that has arisen secondary to the auditory haalucinations. She denies any thoughts of suicide ort prominent anxiety. She denies any history of manic symptoms. She denies any thought so suicide. She denies use of alcohol or drugs other than tobacco. She denies any history of developmental trauam. Consults Consult date: 09/01/21 Requesting physician: Yenny Schaffer Assessment and Plan Assessment and plan (1) Auditory hallucination: Status: Acute Assessment and plan: recommend sripirazole 5 mg daily D/C quetiapine MRI of head to character anatomy associated with dementia OT to evaluate safety for independent self care disposition to depend of ability for independent self care Thank you for the opportunty to particpate in your patient's care, please call with questions or concerns Review of Systems All systems reviewed & are unremarkable except as noted in HPI and below PFSH Medical History Aneurysm of infrarenal abdominal aorta Cholelithiasis CKD (chronic kidney disease) stage 3, GFR 30-59 ml/min COPD (chronic obstructive pulmonary disease) Diverticulosis Failure to thrive in adult Fracture of both ankles Hallucinations Hearing loss History of blood transfusion Hx of diabetes mellitus Hx of hyperlipidemia Hypertension Hypothyroidism Low back pain Memory impairment Non-insulin dependent diabetes mellitus Noncompliance with medication regimen Obesity Osteoarthritis of right knee Pain, joint, knee, right Seborrheic keratosis Smoker Urinary tract infection Surgical History History of bilateral tubal ligation History of hernia repair Family History Father Diabetes Social History Smoking/Tobacco Use Status: Current every day Tobacco Type: cigarettes Years smoked: 15 Tobacco: How many years used: 15 Counseling given: provider counseling and support medications Smoking risk assessment performed?: Yes Alcohol Intake: never Drug use: Never Substance use type: does not use Household members: none Housing: apartment Number of Children: 3 number of grandchildren: 1 What is your relationship status?: Panel score (0-1 are the most socially isolated patients): 0 What type of physical activity do you participate in: walking Seatbelt use: always Do you feel safe at home: Yes Do you feel safe in your relationship?: Yes Exam Psych Appearance: grossly normal Mental Status: other (impaired cognition) Speech and Movement: speech and movement normal Mood: congruent mood and euthymic mood Affect: normal affect Attitude: cooperative Thought Process: normal Thought Content: hallucinations auditory Insight: fair Judgment: fair Results Last Vital Signs Temp 35.8 C L 09/01/21 07:40 Pulse 85 09/01/21 07:40 Resp 14 09/01/21 07:40 BP 129/82 09/01/21 07:40 Pulse Ox 93 09/01/21 07:40 Labs Result diagrams: 09/01/21 06:52 09/01/21 06:52 Labs: Laboratory Results - last 24 hr 08/31/21 09/01/21 09/01/21 17:50 06:52 06:52 WBC 7.53 D RBC 4.33 Hgb 11.9 Hct 38.7 MCV 89.4 MCH 27.5 MCHC 30.7 L RDW 14.6 Plt Count 163 MPV 11.6 H Immature Gran % 0.3 Neutrophils % 65.0 Lymphocytes % 29.2 Monocytes % 4.8 Eosinophils % 0.4 Basophils % 0.3 Nucleated RBC % 0 Absolute Neutrophils 4.89 Absolute Lymphocytes 2.20 Absolute Monocytes 0.36 Absolute Eosinophils 0.03 Absolute Basophils 0.02 Sodium 143 Potassium 3.5 Chloride 107 Carbon Dioxide 28.7 Anion Gap 7.3 BUN 26 H Creatinine 1.1 H Estimated GFR/1.73 m2 48.55 Glucose 96 Calcium 9.0 Magnesium 1.9 Urine Color Yellow Urine Clarity Clear Urine pH 6.0 Ur Specific [place] 1.025 Urine Protein Negative Urine Ketones Negative Urine Blood Negative Urine Nitrite Negative Urine Bilirubin Negative Urine Urobilinogen 0.2 Ur Leukocyte Esterase Negative Urine Glucose Negative
[2021-09-01] MEDS: Albuterol/Ipratropium 3 ML UPD VIAL UPD ×2 (15:55→21:38)
[2021-09-01 16:13] VITALS: BP 118/74; PULSE 84; RESP 19; TEMP 36.5; O2SAT 94
[2021-09-01] MEDS: Insulin Aspart 300 UNITS/3 ML PEN SC (17:43)
--- NOTE | 2021-09-01 19:00 | W.PM.PROGNOT ---
Date of Service Date of service: 09/01/21 Time of Service: 19:00 Assessment and Plan Assessment and plan (1) Acute exacerbation of chronic obstructive pulmonary disease (COPD): Status: Acute Assessment and plan: Due to CAP, present on admission. Continue ceftriaxone/doxycycline. Continue prednisone, but probably won't need it on discharge. Continue scheduled and prn nebs as well as symbicort and incruse ellipta (on discharge would have resumption of trelegy). Not requiring oxygen. (2) Community acquired pneumonia: Status: Acute Assessment and plan: Continue doxycycline, rocephin. Encourage IS/acapella. Improving. Qualifiers: Laterality: right Lung location: lower lobe of lung Qualified Code(s): J18.9 - Pneumonia, unspecified organism (3) Hallucinations: Status: Chronic Assessment and plan: Evaluated by and discussed with Dr Farnsworth of psychiatry, who feels that this is likely a presentation of a dementing process rather than depression with pseudodementia. He recommends trialing abilify. (4) Fall: Status: Acute Assessment and plan: Pain R knee is controlled. XR was negative. Continue PT. Will require home health PT on discharge. (5) Abdominal pain: Status: Acute Assessment and plan: Due to constipation. See constipation Qualifiers: Abdominal location: generalized Qualified Code(s): R10.84 - Generalized abdominal pain (6) Constipation: Status: Chronic Assessment and plan: Intensify bowel regimen. I have doubled the colace as well as miralax. Continue senna. If the patient does not have a BM today, I have requested nursing to do a fleets enema in the morning tomorrow. Qualifiers: Constipation type: unspecified constipation type Qualified Code(s): K59.00 - Constipation, unspecified (7) Pulmonary embolism: Status: Chronic Assessment and plan: Prior to this admission. Continue Eliquis Qualifiers: Pulmonary embolism type: multiple subsegmental (without acute cor pulmonale) Qualified Code(s): I26.94 - Multiple subsegmental pulmonary emboli without acute cor pulmonale (8) Non-insulin dependent diabetes mellitus: Status: Chronic Assessment and plan: Continue SSI. Euglycemic here. (9) DVT prophylaxis: Status: Acute Assessment and plan: On therapeutic eliquis (10) Discharge planning issues: Status: Acute Assessment and plan: Full code Palliative care consulted. Anticipate discharge home tomorrow with new home health RN, PT, OT, SIX COLOR PRESS OPERATOR. Subjective Subjective Interval history since last seen: C/o abdominal pain that she attributes to constipation. She states that she did not have a BM today and does not want to go home tomorrow until she does. She states that at home, when she tried to strain, one time she almost passed out. She states she has more energy today and feels overall better. She stopped wheezing. Still has a little cough productive of clear sputum. Denies dizziness, chest pain, shortness of breath, nausea. Did well with PT. Will need home health nursing, PT,OT, SIX COLOR PRESS OPERATOR on discharge, per care management. Evaluated by Dr Farnsworth for her hallucinations who recommends trialying abilify 5 mg tonight. Exam Narrative Exam Narrative: General: Obese female who is laying comfortably in bed, A&Ox3, more focused and looks much better today, doing word search puzzles HEENT: EOMI, MMM Heart: RRR, no m/r/g Lungs: no wheezing today. CTAB Abdomen: soft, full, diffusely tender (the patient attributes this to constipation) Extremities: trace edema BLE's Objective Last Vital Signs Temp 36.5 C 09/01/21 16:13 Pulse 84 09/01/21 16:13 Resp 19 09/01/21 16:13 BP 118/74 09/01/21 16:13 Pulse Ox 94 09/01/21 16:13 Laboratory Results - last 24 hr 09/01/21 09/01/21 06:52 06:52 WBC 7.53 D RBC 4.33 Hgb 11.9 Hct 38.7 MCV 89.4 MCH 27.5 MCHC 30.7 L RDW 14.6 Plt Count 163 MPV 11.6 H Immature Gran % 0.3 Neutrophils % 65.0 Lymphocytes % 29.2 Monocytes % 4.8 Eosinophils % 0.4 Basophils % 0.3 Nucleated RBC % 0 Absolute Neutrophils 4.89 Absolute Lymphocytes 2.20 Absolute Monocytes 0.36 Absolute Eosinophils 0.03 Absolute Basophils 0.02 Sodium 143 Potassium 3.5 Chloride 107 Carbon Dioxide 28.7 Anion Gap 7.3 BUN 26 H Creatinine 1.1 H Estimated GFR/1.73 m2 48.55 Glucose 96 Calcium 9.0 Magnesium 1.9
[2021-09-01] MEDS: Docusate Sodium 100 MG CAP 200 MG PO (21:36)
[2021-09-01] MEDS: ARIPiprazole 5 MG TAB PO (21:40)
[2021-09-01] MEDS: Atorvastatin 40 MG TAB 80 MG PO (21:40)
[2021-09-01 23:25] VITALS: BP 118/74; PULSE 84; RESP 19; TEMP 36.6; O2SAT 96
[2021-09-02] MEDS: DOXYCYCLINE 100 MG in Normal Saline 100 ML IVPB ×2 (00:28→11:37)
[2021-09-02] MEDS: Normal Saline Flush 10 ML SYR IVP ×2 (00:28→11:40)
[2021-09-02] MEDS: Milk of Magnesia 30 ML CUP PO (02:01)
[2021-09-02] MEDS: Acetaminophen 325 MG TAB PO (02:01)
[2021-09-02] MEDS: cefTRIAXone 2 GM/50 ML BAG IV (05:53)
[2021-09-02] MEDS: Levothyroxine 150 MCG TAB PO (05:57)
[2021-09-02 07:10] VITALS: BP 130/80; PULSE 86; RESP 16; TEMP 36.3; O2SAT 92
[2021-09-02] MEDS: Umeclidinium 7 CAP INHALER 1 CAP IH (08:00)
[2021-09-02] MEDS: Budesonide/Formoterol 80/4.5 6.9 GM 60 PUFF INH IH ×2 (08:00→19:21)
[2021-09-02] MEDS: Acetaminophen 325 MG TAB 650 MG PO ×2 (09:05→19:22)
[2021-09-02] MEDS: Polyethylene Glycol 3350 17 GM PACKET PO (09:05)
[2021-09-02] MEDS: amLODIPine 2.5 MG TAB PO (09:05)
[2021-09-02] MEDS: Apixaban 5 MG TAB PO ×2 (09:06→19:22)
[2021-09-02] MEDS: Senna TAB 1 TAB PO (09:06)
[2021-09-02] MEDS: Pantoprazole 40 MG TABCR PO (09:06)
[2021-09-02] MEDS: Docusate Sodium 100 MG CAP 200 MG PO (09:06)
[2021-09-02] MEDS: Aspirin E.C. 81 MG TABEC PO (09:06)
[2021-09-02] MEDS: Nystatin POWDER 15 GM JAR TP ×3 (09:11→19:22)
[2021-09-02] MEDS: predniSONE 20 MG TAB 40 MG PO (09:42)
--- NOTE | 2021-09-02 14:48 | W.PM.PROGNOT ---
Date of Service Date of service: 09/02/21 Time of Service: 14:48 Assessment and Plan Assessment and plan (1) Acute exacerbation of chronic obstructive pulmonary disease (COPD): Status: Acute Assessment and plan: Due to CAP, present on admission. Continue ceftriaxone/doxycycline. Continue prednisone, but probably won't need it on discharge. Continue scheduled and prn nebs as well as symbicort and incruse ellipta (on discharge would have resumption of trelegy). Not requiring oxygen. (2) Community acquired pneumonia: Status: Acute Assessment and plan: Continue doxycycline, rocephin. Encourage IS/acapella. Improving. Qualifiers: Laterality: right Lung location: lower lobe of lung Qualified Code(s): J18.9 - Pneumonia, unspecified organism (3) Hallucinations: Status: Chronic Assessment and plan: Evaluated by and discussed with Dr Farnsworth of psychiatry, who feels that this is likely a presentation of a dementing process rather than depression with pseudodementia. He recommends trialing abilify; started on 09/01. Monitor (4) Fall: Status: Acute Assessment and plan: Pain R knee is controlled. XR was negative. Continue PT. Will require home health PT on discharge. (5) Abdominal pain: Status: Acute Assessment and plan: Due to constipation. See constipation Qualifiers: Abdominal location: generalized Qualified Code(s): R10.84 - Generalized abdominal pain (6) Constipation: Status: Chronic Assessment and plan: Intensify bowel regimen. Had BM today after enema. Cont colace, senna and Miralax. Qualifiers: Constipation type: unspecified constipation type Qualified Code(s): K59.00 - Constipation, unspecified (7) Pulmonary embolism: Status: Chronic Assessment and plan: Prior to this admission. Continue Eliquis Qualifiers: Pulmonary embolism type: multiple subsegmental (without acute cor pulmonale) Qualified Code(s): I26.94 - Multiple subsegmental pulmonary emboli without acute cor pulmonale (8) Non-insulin dependent diabetes mellitus: Status: Chronic Assessment and plan: Continue SSI. Euglycemic here. (9) DVT prophylaxis: Status: Acute Assessment and plan: On therapeutic eliquis (10) Discharge planning issues: Status: Acute Assessment and plan: Full code Palliative care consulted. Anticipate discharge home tomorrow with new home health RN, PT, OT, HEEL SEAT FILLER. Subjective Subjective Patient reports: no new complaints, feels better and tolerating a regular diet; denies diarrhea, nausea, vomiting and shortness of breath Interval history since last seen: Continues to intermittently hear a voice outside of her room saying Come out and get me. No visual hallucinations. Exam Const General: cooperative and no acute distress Nutritional Appearance: obese Orientation: alert Neck Neck: full ROM and no JVD Resp Effort & Inspection: normal respiratory effort Auscultation: clear to auscultation bilaterally Cardio Rate: regular rate Rhythm: regular rhythm Heart Sounds: S1 normal and S2 normal GI Inspection: obesity Palpation: soft and nontender Neuro General: moves all extremities Cranial Nerves: facial strength normal Speech: speech normal Extrem General: no calf tenderness and edema Laterality: bilateral (trace) Objective Last Vital Signs Temp 36.3 C L 09/02/21 07:10 Pulse 86 09/02/21 07:10 Resp 16 09/02/21 07:10 BP 130/80 09/02/21 07:10 Pulse Ox 92 09/02/21 07:10
[2021-09-02 16:30] VITALS: BP 127/97; PULSE 80; RESP 12; TEMP 36.6; O2SAT 94
[2021-09-02] MEDS: Albuterol/Ipratropium 3 ML UPD VIAL UPD (19:21)
[2021-09-02] MEDS: Atorvastatin 40 MG TAB 80 MG PO (19:22)
[2021-09-02] MEDS: ARIPiprazole 5 MG TAB PO (22:41)
[2021-09-02 23:45] VITALS: BP 127/75; PULSE 69; RESP 19; TEMP 36.7; O2SAT 95
[2021-09-03] MEDS: DOXYCYCLINE 100 MG in Normal Saline 100 ML IVPB ×2 (00:33→12:05)
[2021-09-03] MEDS: cefTRIAXone 2 GM/50 ML BAG IV (06:09)
[2021-09-03] MEDS: Levothyroxine 150 MCG TAB PO (06:09)
[2021-09-03 07:40] VITALS: BP 131/76; PULSE 80; RESP 18; TEMP 36; O2SAT 95
[2021-09-03] MEDS: Budesonide/Formoterol 80/4.5 6.9 GM 60 PUFF INH IH ×2 (07:58→21:15)
[2021-09-03] MEDS: Umeclidinium 7 CAP INHALER 1 CAP IH (07:58)
[2021-09-03] MEDS: Acetaminophen 325 MG TAB 650 MG PO ×2 (08:02→21:00)
[2021-09-03] MEDS: Docusate Sodium 100 MG CAP 200 MG PO ×2 (08:03→21:01)
[2021-09-03] MEDS: Aspirin E.C. 81 MG TABEC PO (08:03)
[2021-09-03] MEDS: Senna TAB 1 TAB PO ×2 (08:04→21:01)
[2021-09-03] MEDS: Apixaban 5 MG TAB PO ×2 (08:04→21:15)
[2021-09-03] MEDS: Pantoprazole 40 MG TABCR PO (08:05)
[2021-09-03] MEDS: amLODIPine 2.5 MG TAB PO (08:05)
[2021-09-03] MEDS: predniSONE 20 MG TAB 40 MG PO (08:05)
[2021-09-03] MEDS: Polyethylene Glycol 3350 17 GM PACKET PO ×2 (08:06→21:01)
[2021-09-03] MEDS: Nystatin POWDER 15 GM JAR TP ×3 (08:07→21:01)
[2021-09-03 12:03] LABS: HGB 12.6 g/dL (11.2-15.7)
[2021-09-03] MEDS: Albuterol/Ipratropium 3 ML UPD VIAL UPD ×2 (12:40→21:33)
--- NOTE | 2021-09-03 15:21 | PGE_ITS ---
Date of Service Date of service: 09/03/21 Time of Service: 15:21 Assessment and Plan Assessment and plan (1) Acute exacerbation of chronic obstructive pulmonary disease (COPD): Status: Acute Assessment and plan: Due to CAP, present on admission. Continue ceftriaxone/doxycycline. Stop prednisone; may be contributing to nausea. Continue scheduled and prn nebs as well as symbicort and incruse ellipta (on discharge would have resumption of trelegy). Not requiring oxygen. (2) Community acquired pneumonia: Status: Acute Assessment and plan: Continue doxycycline, rocephin. Encourage IS/acapella. Improving. Qualifiers: Laterality: right Lung location: lower lobe of lung Qualified Code(s): J18.9 - Pneumonia, unspecified organism (3) Hallucinations: Status: Chronic Assessment and plan: Evaluated by and discussed with Dr Farnsworth of psychiatry, who feels that this is likely a presentation of a dementing process rather than depression with pseudodementia. He recommends trialing abilify; started on 09/01. Denies hearing any voices during the AM today. Monitor (4) Fall: Status: Acute Assessment and plan: Pain R knee is controlled. XR was negative. Continue PT. Will require home health PT on discharge. (5) Abdominal pain: Status: Acute Assessment and plan: Due to constipation. See constipation Qualifiers: Abdominal location: generalized Qualified Code(s): R10.84 - Generalized abdominal pain (6) Constipation: Status: Chronic Assessment and plan: Intensify bowel regimen. Had BM yesterday after enema that was small. No BM since and this is likely causing her nausea and the episode of emesis. Cont colace, senna and Miralax. Qualifiers: Constipation type: unspecified constipation type Qualified Code(s): K59.00 - Constipation, unspecified (7) Pulmonary embolism: Status: Chronic Assessment and plan: Prior to this admission. Continue Eliquis Qualifiers: Pulmonary embolism type: multiple subsegmental (without acute cor pulmonale) Qualified Code(s): I26.94 - Multiple subsegmental pulmonary emboli without acute cor pulmonale (8) Non-insulin dependent diabetes mellitus: Status: Chronic Assessment and plan: Continue SSI. Euglycemic here. (9) DVT prophylaxis: Status: Acute Assessment and plan: On therapeutic eliquis (10) Discharge planning issues: Status: Acute Assessment and plan: Full code Palliative care consulted. Anticipate discharge home tomorrow with new home health RN, PT, OT, SHELTER MONITOR. Subjective Subjective Patient reports: vomiting (This am x 1 after taking meds. Resolved. ) and afebrile; denies diarrhea Interval history since last seen: Fatigued Exam Const General: cooperative, no acute distress and other (appears tired) Nutritional Appearance: obese Orientation: alert Neck Neck: full ROM and no JVD Resp Effort & Inspection: normal respiratory effort Auscultation: clear to auscultation bilaterally Cardio Rate: regular rate Rhythm: regular rhythm Heart Sounds: S1 normal and S2 normal GI Inspection: obesity Palpation: soft and nontender Neuro General: moves all extremities Cranial Nerves: facial strength normal Speech: speech normal Extrem General: no calf tenderness and edema Laterality: bilateral (trace) Objective Last Vital Signs Temp 36.0 C L 09/03/21 07:40 Pulse 80 09/03/21 07:40 Resp 18 09/03/21 07:40 BP 131/76 09/03/21 07:40 Pulse Ox 95 09/03/21 07:40 Laboratory Results - last 24 hr 09/03/21 11:55 Hgb 12.6 Hct 40.0
[2021-09-03 15:55] VITALS: BP 154/83; PULSE 109; RESP 20; TEMP 36.8; O2SAT 93
[2021-09-03] MEDS: Insulin Aspart 300 UNITS/3 ML PEN SC (17:22)
[2021-09-03 20:55] VITALS: BP 121/73; PULSE 92; RESP 18; TEMP 36.3; O2SAT 93
[2021-09-03] MEDS: Atorvastatin 40 MG TAB 80 MG PO (20:59)
[2021-09-03] MEDS: ARIPiprazole 5 MG TAB PO (21:15)
[2021-09-03] MEDS: Melatonin 3 MG TAB PO (21:15)
[2021-09-03 22:03] VITALS: RESP 1; RESP 8
--- NOTE | 2021-09-04 | DI.RAD_ITS ---
Exam(s) XR ABDOMEN FLAT PLATE EXAM: XR ABDOMEN FLAT PLATE CLINICAL HISTORY: abd pain. TECHNIQUE: 2D digital imaging was performed. COMPARISON: CT CT ABDOMEN PELVIS CTA from 08/29/[address] ABDOMEN PELVIS CTA from 08/29/2021 FINDINGS: Single AP supine view of the abdomen and pelvis reveals a nonspecific bowel gas pattern in the supine position. Stomach is filled with air not grossly over distended.. Moderate amount of fecal material in the descending-left colon. No abnormal calcifications seen over the kidneys in course of the urete rs. Regional bones appear unremarkable. IMPRESSION: DATA REPOSITORY: RADIATION DOSE DELIVERED:
[2021-09-04] MEDS: DOXYCYCLINE 100 MG in Normal Saline 100 ML IVPB ×3 (00:31→23:11)
[2021-09-04] MEDS: Normal Saline Flush 10 ML SYR IVP ×3 (00:32→23:11)
[2021-09-04 03:56] VITALS: BP 120/72; PULSE 89; RESP 19; TEMP 36.1; O2SAT 93
[2021-09-04] MEDS: Levothyroxine 150 MCG TAB PO (06:01)
[2021-09-04] MEDS: cefTRIAXone 2 GM/50 ML BAG IV (06:01)
[2021-09-04 08:13] VITALS: BP 132/74; PULSE 91; RESP 17; TEMP 36.6; O2SAT 95
--- NOTE | 2021-09-04 08:22 | OTIE_ITS ---
Occupational Therapy Notes Inpatient Occupational Therapy Evaluation Date: 09/04/21 Referring Doctor:Stefani Brothers NP OT Orders: Non -Urgent Precautions: Fall, standard, Full PATIENT PROFILE/ADMITTING DIAGNOSIS: Pt is a 76 year old female who was admitted through the ED with a clinical Impression of Community acquired pneumonia, Abdominal pain, Asthma exacerbation and admitted for the dx's of auditory hallucinations, fall, acute exacerbation of COPD, community acquired penumonia, abdominal pain, asthma exacerbation, vertigo, diverticulosis, cholethiasis, gastroenteritis, hypothyroidism, hx of DM, constipation, pulmonary embolism, memory impairment, oesteoarthritis of PIP joint (L) LF, aneurysm of infrarenal abdominal aorta, OA (R) knee. Past Medical History: Medical History Aneurysm of infrarenal abdominal aorta Cholelithiasis CKD (chronic kidney disease) stage 3, GFR 30-59 ml/min COPD (chronic obstructive pulmonary disease) Diverticulosis Failure to thrive in adult Fracture of both ankles Hallucinations Hearing loss History of blood transfusion Hx of diabetes mellitus Hx of hyperlipidemia Hypertension Hypothyroidism Low back pain Memory impairment Non-insulin dependent diabetes mellitus Noncompliance with medication regimen Obesity Osteoarthritis of right knee Pain, joint, knee, right Seborrheic keratosis Smoker Urinary tract infection Surgical History History of bilateral tubal ligation History of hernia repair Social History/Home Situation: Pt states that she lives alone in an apartment in [facility] which she states that she lives [place] the [place] from [facility]. She does not drive and states that she utilizes RCT and meals on wheels. She states that she has a shower seat for her walk in shower but reports she has no issues with dressing or bathing. She is able to perform her socks and shoes. She states that there are two ways to enter in her home one way with a small step and one with 4 steps. She states that she typically utilizes the 1 way step. Equipment owned/DME: cane, FWW, shower seat, grab bars SUBJECTIVE: Pt was lying in bed when OT arrived, she was agreeable to OT session and notes that she is sore from her fall. Bed alarms in place. OBJECTIVE: General Observation: IV in (L) dorsal thumb not connected, pleasant and agreeable to session. Mental Status: A&Ox3 Pain: c/o pain in back and abdomen ROM: RUE AROM WFL L UE AROM WFL STRENGTH: RUE shoulder flexion 4-/5, otherwise 5/5 throughout LUE 5/5 throughout FUNCTIONAL MOBILITY/ADLS: Transfers with cane Supine-sit (I) Sit-Stand (S) Stand-sit (S) Bed-Chair (SBA) BATHING Pt would like to hold pending her breakfast at this time. She does have AROM functionally to perform her bathing. She states that she doesn't need any (A) except set up. DRESSING Dressing LE sitting on side of the bed (I) donning (B) socks with idea technique and leg mobility for performance. TOILETING pt reports that she uses the toilet in the bathroom and just needs (A) with walking to the toilet. EATING sitting in chair- (I) BALANCE: Static sitting normal Dynamic Sitting normal Static Standing normal Dynamic Standing normal SPECIAL TESTS: Daily Activity Limitations [facility]? Daily Activity Inpatient Short Form: Raw score: 23 Standardized score: 51.12 CMS score: 15.86% INFORMED CONSENT/EDUCATION: Pt instructed in purpose of OT Consult and plan of care. ASSESSMENT: Patient is a 76-year-old female referred to occupational therapy services with diagnosis of auditory hallucinations, fall, acute exacerbation of COPD, community acquired penumonia, abdominal pain, asthma exacerbation, vert igo, diverticulosis, cholethiasis, gastroenteritis, hypothyroidism, hx of DM, constipation, pulmonary embolism, memory impairment, oesteoarthritis of PIP joint (L) LF, aneurysm of infrarenal abdominal aorta, OA (R) knee. Patient presents with clinical signs and symptoms consistent with dx, as demonstrated by the following impairment level findings/functional limitations: Decreased functional activity tolerance, pain in back and abdomen, pain from fall. AMPAC score 23 Patient is assessed as a Low 67421 complexity based on the following: History: see above Examination: see functional limitations as noted above Presentation: evolving Decision Making: AMPAC score 23 GOALS Goals x1 week 1. Transfers (I) 2. Dressing sitting in chair (I) 3. Bathing sitting in chair (I) 4. Toileting on toilet (I) PLAN OF CARE/TREATMENT PLAN: 1x/day, 5 days/ week x 1week Initiate Occupational Therapy Services for bathing, dressing, grooming, toil eting, eating, transfer training. DISCHARGE RECOMMENDATIONS OT recommends that pt return home to her apartment when medically cleared per MD. TREATMENT TIME/MINUTES/CODES 47642, 21 minutes (08:00) Kamila Lua OTR/[facility]
[2021-09-04] MEDS: Polyethylene Glycol 3350 17 GM PACKET PO ×2 (08:41→20:09)
[2021-09-04] MEDS: Lactulose 20 GM/30 ML CUP PO (08:41)
[2021-09-04] MEDS: Docusate Sodium 100 MG CAP 200 MG PO ×2 (08:42→20:08)
[2021-09-04] MEDS: Aspirin E.C. 81 MG TABEC PO (08:42)
[2021-09-04] MEDS: Acetaminophen 325 MG TAB 650 MG PO ×2 (08:42→20:09)
[2021-09-04] MEDS: Apixaban 5 MG TAB PO ×2 (08:43→20:09)
[2021-09-04] MEDS: Senna TAB 1 TAB PO ×2 (08:43→20:08)
[2021-09-04] MEDS: Pantoprazole 40 MG TABCR PO (08:43)
[2021-09-04] MEDS: amLODIPine 2.5 MG TAB PO (08:43)
[2021-09-04] MEDS: Nystatin POWDER 15 GM JAR TP ×3 (08:45→20:09)
[2021-09-04] MEDS: Budesonide/Formoterol 80/4.5 6.9 GM 60 PUFF INH IH ×2 (09:14→20:09)
[2021-09-04] MEDS: Umeclidinium 7 CAP INHALER 1 CAP IH (09:14)
--- NOTE | 2021-09-04 10:02 | CMPROGNOTE_ITS ---
- If Service Date Differs Date of service: 09/04/21 Time of Service: 10:03 Care Management Progress Note S/O: Fabiola was sitting in the her chair when CM met with her. She was pleasant and easily engaged in conversation. Fabiola reported that she is anticipating being discharged home tomorrow with new home health RN, PT, OT, AUXILIARY EQUIPMENT OPERATOR if she is able to have a BM. A: Fabiola is a 76 year old woman admitted on 08/30/21 with pneumonia, constipation. P: Fabiola will likely be discharged home with new home health services for RN, PT, OT and AUXILIARY EQUIPMENT OPERATOR when medically cleared by MD. Her bowel regimen has been increased as she continues to feel constipated. Fabiola will follow up with her PCP and discharge plan of care and transport with [facility] coordinated by [facility]. CM will continue to support Fabiola and her discharge needs.
[2021-09-04 10:59] LABS: Streptococcus Pneumoniae Ag, U Negative (Negative)
--- NOTE | 2021-09-04 14:09 | W.PM.PROGNOT ---
Date of Service Date of service: 09/04/21 Time of Service: 14:09 Assessment and Plan Assessment and plan (1) Acute exacerbation of chronic obstructive pulmonary disease (COPD): Status: Acute Assessment and plan: Due to CAP, present on admission. Continue ceftriaxone/doxycycline. Stop prednisone; may be contributing to nausea. Continue scheduled and prn nebs as well as symbicort and incruse ellipta (on discharge would have resumption of trelegy). Not requiring oxygen. (2) Community acquired pneumonia: Status: Acute Assessment and plan: Continue doxycycline, rocephin. Encourage IS/acapella. Improving. Qualifiers: Laterality: right Lung location: lower lobe of lung Qualified Code(s): J18.9 - Pneumonia, unspecified organism (3) Hallucinations: Status: Chronic Assessment and plan: Evaluated by and discussed with Dr Farnsworth of psychiatry, who feels that this is likely a presentation of a dementing process rather than depression with pseudodementia. He recommends trialing abilify; started on 09/01. Denies hearing any voices during the AM today. Monitor (4) Fall: Status: Acute Assessment and plan: Pain R knee is controlled. XR was negative. Continue PT. Will require home health PT on discharge. (5) Abdominal pain: Status: Acute Assessment and plan: Due to constipation. See constipation Qualifiers: Abdominal location: generalized Qualified Code(s): R10.84 - Generalized abdominal pain (6) Constipation: Status: Chronic Assessment and plan: Abd xr shows fecal load in left colon. Cont scheduled senna, miralax. Also received a dose of lactulose today. Encourage ambulation. Qualifiers: Constipation type: unspecified constipation type Qualified Code(s): K59.00 - Constipation, unspecified (7) Pulmonary embolism: Status: Chronic Assessment and plan: Prior to this admission. Continue Eliquis Qualifiers: Pulmonary embolism type: multiple subsegmental (without acute cor pulmonale) Qualified Code(s): I26.94 - Multiple subsegmental pulmonary emboli without acute cor pulmonale (8) Non-insulin dependent diabetes mellitus: Status: Chronic Assessment and plan: Continue SSI. Euglycemic here. (9) DVT prophylaxis: Status: Acute Assessment and plan: On therapeutic eliquis (10) Discharge planning issues: Status: Acute Assessment and plan: Full code Palliative care consulted. Anticipate discharge home tomorrow with new home health RN, PT, OT, MEDICAL OFFICE TECHNICIAN. Subjective Subjective Patient reports: no new complaints, bowel movement (Multiple BMs on Saturday but still feels constipated) and afebrile; denies nausea, vomiting and shortness of breath Exam Const General: cooperative, no acute distress and other (appears tired) Nutritional Appearance: obese Orientation: alert Neck Neck: full ROM and no JVD Resp Effort & Inspection: normal respiratory effort Auscultation: clear to auscultation bilaterally Cardio Rate: regular rate Rhythm: regular rhythm Heart Sounds: S1 normal and S2 normal GI Inspection: obesity Palpation: soft and tender (L side upper and lower) Neuro General: moves all extremities Cranial Nerves: facial strength normal Speech: speech normal Extrem General: no calf tenderness and edema Laterality: bilateral (trace) Objective Last Vital Signs Temp 36.6 C 09/04/21 08:13 Pulse 91 H 09/04/21 08:13 Resp 17 09/04/21 08:13 BP 132/74 09/04/21 08:13 Pulse Ox 95 09/04/21 08:13
[2021-09-04 15:30] VITALS: BP 146/79; PULSE 90; RESP 19; TEMP 36.5; O2SAT 95
--- NOTE | 2021-09-04 18:46 | NUR.NOTE ---
Nursing Note: During this shift patient has been encouraged and reminded to use her call ennis and patient has not been compliant. Patient gets up and uses the restroom herself. Patient has been told that her safety is our concern and we do no want her to fall. This nurse was just in to see if she was okay and if she needed anything and she said no and as I walked down the [place] her chair alarm went off and she was getting up to use the restroom and did not use her call ennis
[2021-09-04] MEDS: Atorvastatin 40 MG TAB 80 MG PO (20:09)
[2021-09-04] MEDS: Albuterol/Ipratropium 3 ML UPD VIAL UPD (20:09)
[2021-09-04 20:39] VITALS: RESP 2; RESP 3
[2021-09-04] MEDS: Melatonin 3 MG TAB PO (22:08)
[2021-09-04] MEDS: ARIPiprazole 5 MG TAB PO (22:08)
[2021-09-04 23:25] VITALS: BP 128/72; PULSE 87; RESP 19; TEMP 36.1; O2SAT 94
[2021-09-05] MEDS: Normal Saline Flush 10 ML SYR IVP (05:56)
[2021-09-05] MEDS: Levothyroxine 150 MCG TAB PO (05:56)
[2021-09-05] MEDS: cefTRIAXone 2 GM/50 ML BAG IV (05:57)
[2021-09-05 08:14] VITALS: BP 139/84; PULSE 80; RESP 18; TEMP 36.3; O2SAT 93
[2021-09-05] MEDS: Nystatin POWDER 15 GM JAR TP (08:18)
[2021-09-05] MEDS: Aspirin E.C. 81 MG TABEC PO (08:19)
[2021-09-05] MEDS: Bisacodyl 5 MG TABEC PO (08:19)
[2021-09-05] MEDS: Acetaminophen 325 MG TAB 650 MG PO (08:19)
[2021-09-05] MEDS: Docusate Sodium 100 MG CAP 200 MG PO (08:19)
[2021-09-05] MEDS: Senna TAB 1 TAB PO (08:19)
[2021-09-05] MEDS: Polyethylene Glycol 3350 17 GM PACKET PO (08:19)
[2021-09-05] MEDS: Apixaban 5 MG TAB PO (08:19)
[2021-09-05] MEDS: amLODIPine 2.5 MG TAB PO (08:19)
[2021-09-05] MEDS: Pantoprazole 40 MG TABCR PO (08:19)
[2021-09-05] MEDS: Milk of Magnesia 30 ML CUP PO (08:20)
--- NOTE | 2021-09-05 09:16 | OTDS_ITS ---
Date of service: 09/05/21 Time of Service: 09:16 Occupational Therapy Notes Occupational Therapy Inpatient Discharge Summary Date: 09/05/21 Dates of Service: 09/04/21-09/05/21 Referring Doctor:Stefani Brothers NP OT Orders: Non -Urgent Precautions: Fall, standard, Full PATIENT PROFILE/ADMITTING DIAGNOSIS: Pt is a 76 year old female who was admitted through the ED with a clinical Impression of Community acquired pneumonia, Abdominal pain, Asthma exacerbation and admitted for the dx's of auditory hallucinations, fall, acute exacerbation of COPD, community acquired penumonia, abdominal pain, asthma exacerbation, vertigo, diverticulosis, cholethiasis, gastroenteritis, hypothyroidism, hx of DM, constipation, pulmonary embolism, memory impairment, oesteoarthritis of PIP joint (L) LF, aneurysm of infrarenal abdominal aorta, OA (R) knee. Past Medical History: Medical History Aneurysm of infrarenal abdominal aorta Cholelithiasis CKD (chronic kidney disease) stage 3, GFR 30-59 ml/min COPD (chronic obstructive pulmonary disease) Diverticulosis Failure to thrive in adult Fracture of both ankles Hallucinations Hearing loss History of blood transfusion Hx of diabetes mellitus Hx of hyperlipidemia Hypertension Hypothyroidism Low back pain Memory impairment Non-insulin dependent diabetes mellitus Noncompliance with medication regimen Obesity Osteoarthritis of right knee Pain, joint, knee, right Seborrheic keratosis Smoker Urinary tract infection Surgical History History of bilateral tubal ligation History of hernia repair Social History/Home Situation: Pt states that she lives alone in an apartment in [facility] which she states that she lives [place] the [place] from [facility]. She does not drive and states that she utilizes RCT and meals on wheels. She states that she has a shower seat for her walk in shower but reports she has no issues with dressing or bathing. She is able to perform her socks and shoes. She states that there are two ways to enter in her home one way with a small step and one with 4 steps. She states that she typically utilizes the 1 way step. Equipment owned/DME: cane, FWW, shower seat, grab bars SUBJECTIVE: Pt was on toilet when OT arrived. She states that she is doing well and notes that she is getting washed up for the day. OBJECTIVE: Mental Status: A&Ox3 Pain: no c/o pain during OT session ROM: RUE AROM WFL L UE AROM WFL STRENGTH: RUE shoulder flexion 4-/5, otherwise 5/5 throughout LUE 5/5 throughout FUNCTIONAL MOBILITY/ADLS: Transfers with cane Supine-sit (I) Sit-Stand (I) Stand-sit (I) BATHING standing at sink (I) (I) face, (B) UE and abdomen, (I) (B) LE and pt does asks for (A) with her back but she is otherwise (I) at this time. DRESSING Dressing LE/LE: Standing at sink with hand support to sink, (I) donning underwear and socks. Also (I) donning hospital gown. TOILETING on toilet (I) BALANCE: Static sitting normal Dynamic Sitting normal Static Standing normal Dynamic Standing normal ASSESSMENT: Patient is a 76-year-old female referred to occupational therapy services with diagnosis of auditory hallucinations, fall, acute exacerbation of COPD, community acquired penumonia, abdominal pain, asthma exacerbation, vertigo, diverticulosis, cholethiasis, gastroenteritis, hypothyroidism, hx of DM, constipation, pulmonary embolism, memory impairment, oesteoarthritis of PIP joint (L) LF, aneurysm of infrarenal abdominal aorta, OA (R) knee.Pt was seen for OT consult on 09/04 she was able to perform some of her ADLs. This morning when OT arrived, pt was (I) performing her toileting, dressing and bathing with no required (A) at this time needed. It does appear that pt is feeling better today and has no issues at this time and reports that she feels that she is at her baseline level of function. GOALS- Met 1. Transfers (I) 2. Dressing sitting in chair (I) 3. Bathing sitting in chair (I) 4. Toileting on toilet (I) PLAN OF CARE/TREATMENT PLAN: Discharge from skilled OT services DISCHARGE RECOMMENDATIONS OT recommends that pt return home to her apartment when medically cleared per MD. TREATMENT TIME/MINUTES/CODES 04217, 10 minutes (09:05) Kamila Lua OTR/[facility]
[2021-09-05] MEDS: Budesonide/Formoterol 80/4.5 6.9 GM 60 PUFF INH IH (09:55)
[2021-09-05] MEDS: Umeclidinium 7 CAP INHALER 1 CAP IH (09:55)
--- NOTE | 2021-09-05 10:40 | W.PM.DS.N ---
Date of service: 09/05/21 Time of Service: 10:41 DS: Diagnosis Discharge Diagnosis (1) Acute exacerbation of chronic obstructive pulmonary disease (COPD): Status: Acute (2) Community acquired pneumonia: Status: Acute (3) Hallucinations: Status: Chronic (4) Fall: Status: Acute (5) Abdominal pain: Status: Acute (6) Constipation: Status: Chronic (7) Pulmonary embolism: Status: Chronic (8) Non-insulin dependent diabetes mellitus: Status: Chronic (9) DVT prophylaxis: Status: Acute (10) Discharge planning issues: Status: Acute Discharge Plan Disposition Patient Disposition: HOME Condition: Fair Discharge Details Reason For Visit: Pneumonia,constipation Admit Date/Time: 08/31/21 16:50 Admit Provider: Sandeep Blanton Attending Provider: Sandeep Blanton Primary Care Provider: Kathleen Azevedo Hospital Course Hospital Course: 76 yr old female smoker (onset age 18, 8 cigarettes per day), hx COPD, PE (chronically anticoagulated w/ Eliquis), HTN, DM (reportedly on medications but none listed here), HLD, CKD, hypothyroidism, AAA who presented to the ER w/ complaints of dyspnea and nausea along w/ constipation (last BM 2 days ago). She was found to be hypoxemic w/ SPO2 of 83% along w/ diffuse wheezing and coughing. Workup in the ER included routine labs (CBC, lactate, CMP, lipase and SARS-COV2 PCR, which was negative), CXR. Chest xray demonstrated mild infiltrate in the left lung base, no pleural effusion, right lung is clear. Heart is upper limits of normal. labs were remarkable for mild azotemia (BUN 37, creatinine 1.2), no leukocytosis, and no anemia. Lactate was normal at 0.8. Patient was treated w/ DuoNeb aerosols, zofran, solumedrol 125 mg, Rocephin and doxycycline. Her hypoxemia corrected w/ supplemental oxygen NC @ 2 LPM. She is admitted for treatment of CAP. She is fully vaccinated w/ Moderna for SARS-COV2. She continues to smoke about 8 cigarettes per day. She denies any alcohol consumption. Her abd discomfort was related to consitpation / significant fecal loading. With a bowel regimen she did find relief after multiple BMs. She completed a course of antibiotics and her respiratory status returned to baseline. No further steroids at time of d/c. She was noted to have a recurring auditory hallucination that also had been occuring at home. She hears someone outside her room say Come out and let me in. Psychiatry consulted and initiated Abilify 5 mg nightly. This may need to be titrated as an outpt. She will continue on BID Miralax to maintain routine stools. Cont Trelegy, Flovent and Duonebs prn for her COPD. Encouraged to stop smoking. Did not use nicotine replacement while hospitalized. F/U with PCP in 1-2 weeks. Home Meds and New Rx's Prescriptions: New polyethylene glycol 3350 17 gram Powder In Packet 17 g PO BID Qty: 0 RF: 0 magnesium hydroxide [Milk of Magnesia] 400 mg/5 mL Suspension 30 ml PO DAILY PRN PRNQty: 0 RF: 0 aripiprazole [Abilify] 5 mg Tablet 5 mg PO HS Qty: 30 RF: 0 Continued ipratropium-albuterol 0.5 mg-3 mg(2.5 mg base)/3 mL Solution For Nebulization 3 ml UPD Q4H PRN PRN (Reason: shortness of breath or wheezing) Qty: 180 RF: 0 acetaminophen [Mapap Arthritis Pain] 650 mg Tablet Extended Release 650 mg PO BID RF: 0 ondansetron HCl [Zofran] 4 mg tablet 4 mg PO Q8H PRNQty: 20 RF: 0 levothyroxine 150 mcg tablet 150 mcg PO DAILY RF: 0 docusate sodium 100 mg capsule 100 mg PO BID PRN PRNRF: 0 Trelegy Ellipta 100-62.5-25 mcg blister with device 1 inh INHALATION DAILY RF: 0 Flovent HFA 220 mcg/actuation HFA aerosol inhaler 2 inh INHALATION BID RF: 0 aspirin 81 mg tablet,delayed release (DR/EC) 81 mg PO DAILY RF: 0 atorvastatin 80 mg tablet 80 mg PO DAILY RF: 0 Eliquis 5 mg tablet 5 mg PO BID Qty: 71 RF: 0 No Action pantoprazole 40 mg Tablet,Delayed Release (Dr/Ec) 40 mg PO DAILY@0730 Qty: 30 RF: 0 sennosides [Senokot] 8.6 mg Tablet 8.6 mg PO BID Qty: 60 RF: 0 Discharge Instructions Stand Alone Forms: Nursing Discharge Form Activity:: Activity as Tolerated Equipment/Supplies:: No Equipment Needed Diet:: Resume her usual diet Discharge Orders Discharge Orders: Discharge Order (Routine); Ordered 09/05/21 Ordered By: Marin Mcpherson DS: Summary Time Spent with Patient providing and/or coordinating discharge services: Greater than 30 minutes Status at Discharge Functional status at discharge: independent ambulation Overall status at discharge: patient is progressing back to baseline Mental Status: mental status grossly normal (evidence of early dementia) Speech and Movement: speech and movement normal Mood: congruent mood Affect: normal affect Exam Const General: cooperative, no acute distress and other (appears tired) Nutritional Appearance: obese Orientation: alert Neck Neck: full ROM and no JVD Resp Effort & Inspection: normal respiratory effort Auscultation: clear to auscultation bilaterally Cardio Rate: regular rate Rhythm: regular rhythm Heart Sounds: S1 normal and S2 normal GI Inspection: obesity Palpation: soft and nontender Neuro General: moves all extremities Cranial Nerves: facial strength normal Speech: speech normal Extrem General: no calf tenderness and edema Laterality: bilateral (trace) Psych Mental Status: mental status grossly normal (evidence of early dementia) Speech and Movement: speech and movement normal Mood: congruent mood Affect: normal affect DS: Data Vitals/I&O Vitals and I&O: Vital Signs Temperature 36.3 C L 09/05/21 08:14 Temperature Source Tympanic 09/05/21 08:14 Pulse 80 09/05/21 08:14 Pulse Rhythm Regular 09/05/21 08:58 Pulse 83 08/30/21 03:20 Respiratory Rate 18 09/05/21 08:14 Respiratory Effort Non-Labored 09/05/21 08:58 Respiratory Depth Normal 09/05/21 08:58 Respiratory Pattern Normal 09/05/21 08:58 Blood Pressure 139/84 09/05/21 08:14 Blood Pressure Mean 79 08/30/21 03:16 Pulse Oximetry 93 09/05/21 08:14 Oxygen Delivery Method Room Air 09/05/21 08:14 Oxygen Flow Rate 0 09/05/21 08:14 Pain Level 0 09/05/21 08:14 Comment 08/30/21 03:51 Intake & Output 09/04/21 09/04/21 09/05/21 11:59 23:59 11:59 Intake Total 360 / 670 310 / 670 100 / 100 Output Total 250 / 250 400 / 400 Balance 110 / 420 310 / 420 -300 / -300 Weight 99.5 kg 102.5 kg Intake: IV 160 / 270 110 / 270 100 / 100 Oral 200 / 400 200 / 400 Output: Urine 250 / 250 400 / 400 Other: Urine Color Pale Yellow Yellow Urine Appearance Clear Clear Clear Urine Odor Normal Normal Voiding Methods Toilet Toilet Toilet Data Completed and Pending Labs on day of discharge: Labs from last 24 hours 08/31/21 17:50 Ur Strep pneumoniae Ag Negative PFS Medical History Aneurysm of infrarenal abdominal aorta Cholelithiasis CKD (chronic kidney disease) stage 3, GFR 30-59 ml/min COPD (chronic obstructive pulmonary disease) Diverticulosis Failure to thrive in adult Fracture of both ankles Hallucinations Hearing loss History of blood transfusion Hx of diabetes mellitus Hx of hyperlipidemia Hypertension Hypothyroidism Low back pain Memory impairment Non-insulin dependent diabetes mellitus Noncompliance with medication regimen Obesity Osteoarthritis of right knee Pain, joint, knee, right Seborrheic keratosis Smoker Urinary tract infection Surgical History History of bilateral tubal ligation History of hernia repair Family History Father Diabetes Social History Smoking/Tobacco Use Status: Current every day Tobacco Type: cigarettes Years smoked: 15 Tobacco: How many years used: 15 Counseling given: provider counseling and support medications Smoking risk assessment performed?: Yes Alcohol Intake: never Drug use: Never Substance use type: does not use Household members: none Housing: apartment Number of Children: 3 number of grandchildren: 1 What is your relationship status?: Panel score (0-1 are the most socially isolated patients): 0 What type of physical activity do you participate in: walking Seatbelt use: always Do you feel safe at home: Yes Do you feel safe in your relationship?: Yes
--- NOTE | 2021-09-05 11:40 | PDOC.HHF2F_ITS ---
Home Health Certification Home Health Certification: 1. Encounter Date and Reason I certify that Fabiola Martínez was seen by Marin Mcpherson MD on 09/05/21 and that I had a [id number] encounter with this patient that meets the physician face to face encounter requirements. 2. Clinical Findings Supporting Skilled Need and Homebound Status I certify that home health services are medically necessary, include either intermittent senior living and/or physical/speech therapy, and that this pat ient is homebound in that absences from the home require considerable and taxing effort and are infrequent or of short duration, or are attributable to the need to receive medical care. [X] (a) Attached documentation from encounter provides clinical findings supporting skilled need and homebound status (including what assistance patient requires to leave the home). The encounter with the patient was in whole, or in part, for the following medical condition, which is the primary reason for home health care: Pneumonia,constipation Halfway:Recent pneumonia. Monitor respiratory status. Constipation. Assist in bowel regimen management. Physical Therapy Occupational Therapy: Eval and treat deconditioned state. Speech Therapy: LICENSED SALES ASSISTANT: assist with resources to help maintain her independence and safety. Homebound: 3. Certification and Authentication I certify that I composed the above information based on my clinical judgement relating to this patient's medical condition and, if applicable, clinical findings communicated to me by the NPP or inpatient physician who performed the Home Health Referral. All further orders will be obtained through Kathleen Azevedo (Community Based Physician - PCP)
--- NOTE | 2021-09-06 08:50 | INDS_ITS ---
Date of service: 09/06/21 PT Notes Visit Reasons: Pneumonia,constipation Physical Therapy Inpatient Discharge Summary Date: 09/06/21 Dates of Service: 08/30/2021 through 08/31/2021 This is a clinical summary of care provided for the duration of dates listed above. No charge was made in the completion of this documentation. Referring Doctor: Sandeep Blanton MD PT Orders: PT CONSULT Precautions: Fall. Standard. Patient Profile/Admitting Diagnosis: Abdominal Pain PMHX: Medical History Aneurysm of infrarenal abdominal aorta Cholelithiasis CKD (chronic kidney disease) stage 3, GFR 30-59 ml/min COPD (chronic obstructive pulmonary disease) Diverticulosis Failure to thrive in adult Fracture of both ankles Hallucinations Hearing loss History of blood transfusion Hx of diabetes mellitus Hx of hyperlipidemia Hypertension Hypothyroidism Low back pain Memory impairment Non-insulin dependent diabetes mellitus Noncompliance with medication regimen Obesity Osteoarthritis of right knee Pain, joint, knee, right Seborrheic keratosis Smoker Urinary tract infection Surgical History History of bilateral tubal ligation History of hernia repair Social History/Home Situation: Pt lives alone in an apartment, states there are no stairs for entry. Equipment Owned/DME: SPC Subjective: NT. See most recent [employer] notes. Objective: General Observation: NT. See most recent [employer] notes. Mental Status: NT. See most recent [employer] notes. Pain: NT. See most recent [employer] notes. Vitals: NT. See most recent [employer] notes. ROM: Right Upper Extremity: Shoulder Flexion WFL. Shoulder abduction WFL. Elbow flexion WFL. Wrist flexion WFL. Opening and closing of hand WFL. Left Upper Extremity: Shoulder Flexion WFL. Shoulder abduction WFL. Elbow flexion WFL. Wrist flexion WFL. Opening and closing of hand WFL. Right Lower Extremity: Hip flexion WFL. Hip abduction WFL. Knee flexion WFL. Ankle dorsiflexion WFL. Ankle plantarflexion WFL. Left Lower Extremity: Hip flexion WFL. Hip abduction WFL. Knee flexion WFL. Ankle dorsiflexion WFL. Ankle plantarflexion WFL. Strength: Right Upper Extremity: Shoulder flexors 4/5. Shoulder abductors WFL. Elbow flexors WFL. Elbow extensors WFL. Soda Room Operator strong. Left Upper Extremity: Shoulder flexors 4/5. Shoulder abductors WFL. Elbow flexors WFL. Elbow extensors WFL. Soda Room Operator strong. Right Lower Extremity: Hip flexors 5/5. Knee flexors 5/5. Knee extensors 5/5. Ankle dorsiflexors 5/5. Ankle plantarflexors 5/5. Left Lower Extremity: Hip flexors 5/5. Knee flexors 5/5. Knee extensors 5/5. Ankle dorsiflexors 5/5. Ankle plantarflexors 5/5. Sensation: Intact as to pain and pressure on bilateral lower extremities. Bed Mobility/Transfers: Rolling: Independent Supine to sit: Independent Sit to supine: Independent Sit to stand: Independent Stand to sit: Independent Bed to chair: Independent Chair to bed: Independent Gait: Ambulated 100 feet x 2 with supervision utilizing FWW. Up and down 1 x 4 while holding onto B rails independently. Balance: Static Sitting: Normal Dynamic Sitting: Normal Static Standing: Normal Assessment: Patient presents with clinical signs and symptoms consistent with current/admitting diagnoses that have resulted to mobility limitations, gait instability, generalized weakness, and impairment of motor control as demonstrated by the following impairment level findings: 1. Impaired activity tolerance Impairments are contributing to the following functional limitations: 1. Increased dependence with transfers 2. Inability to safely ambulate without assistive device and physical assistance 3. Increase completion time for mobility ADL performance 4. Increased fall risk Goals: Goals x1 week 1. Bed-Chair: independent MET 2. Chair-Bed: independent MET 3. Independent gait on level surface with use of least restrictive device for at least 50 feet without report of pain MET 4. Independent stair negotiation while holding onto bilateral rails for at least 5 steps without report of pain MET 5. Independent with home exercise program MET 6. Good static and dynamic standing balance/tolerance MET DISCHARGE RECOMMENDATIONS: Based on pt's mobility presentation pt is recommended discharge to home environment with recommendation that pt attend outpatient physical therapy for fall risk mitigation and management of vertigo. TREATMENT CODE/TIME: WI Thank you for the opportunity to participate in the care of this patient. Ting Posada PT, DPT, CLT [facility] [place], [place]
== END 2021-09-05 12:20 | disposition home or self-care (01) | DRG 193 ==
LOC: ER 08-30 03:28 → MS 08-30 03:32
PROVIDERS: Family Medicine; Internal Medicine; Admitting Provider Internal Medicine; Emergency Provider Student in an Organized Health Care Education/Training Program; PCP Nurse Practitioner; Visit Provider Internal Medicine
DX: J18.9 Pneumonia, unspecified organism (principal); I26.94 Multiple subsegmental thrombotic pulmonary emboli without acute cor pulmonale; J44.0 Chronic obstructive pulmonary disease with (acute) lower respiratory infection; J44.1 Chronic obstructive pulmonary disease with (acute) exacerbation; I27.82 Chronic pulmonary embolism; R44.0 Auditory hallucinations; Z79.01 Long term (current) use of anticoagulants; N18.9 Chronic kidney disease, unspecified; E11.22 Type 2 diabetes mellitus with diabetic chronic kidney disease; I71.4 Abdominal aortic aneurysm, without rupture; E78.00 Pure hypercholesterolemia, unspecified; I12.9 Hypertensive chronic kidney disease with stage 1 through stage 4 chronic kidney disease, or unspecified chronic kidney disease; E03.9 Hypothyroidism, unspecified; K59.00 Constipation, unspecified; F17.210 Nicotine dependence, cigarettes, uncomplicated; R09.02 Hypoxemia; K57.30 Diverticulosis of large intestine without perforation or abscess without bleeding; E78.5 Hyperlipidemia, unspecified; M54.50 Low back pain, unspecified; R41.3 Other amnesia; M17.11 Unilateral primary osteoarthritis, right knee; Z91.14 Patient's other noncompliance with medication regimen; E66.01 Morbid (severe) obesity due to excess calories; Z20.822 Contact with and (suspected) exposure to COVID-19; R30.0 Dysuria; R44.1 Visual hallucinations; W19.XXXA Unspecified fall, initial encounter; Y92.239 Unspecified place in hospital as the place of occurrence of the external cause
CPT/HCPCS: 36415; 70553; 73562; 80048; 80053; 83690; 87635; 90662; 94640; 96365; 96375; 97163; 97165; 97530; 97535; 99285; 70450; 71045; 74018; 74174; 81003; 81015; 83036; 83605; 83735; 85014; 85018; 85025; 87086; 87899; 99219; 99232; 99233; 99239; G0378; J1941; J2405; J2930; J3490; J7512; J7620; J8597

== ENCOUNTER 2021-09-07 18:51 | Emergency (ER) | payer OTHER, MEDICAID, SELFPAY ==
[2021-09-07] VITALS (17 sets, daily range): BP systolic 116–134; BP diastolic 55–78; PULSE 73–93; RESP 16–23; TEMP 36.4; O2SAT 95–99
--- NOTE | 2021-09-07 19:00 | DI.CT_ITS ---
Exam(s) CT LUMBAR SPINE WO EXAM: CT LUMBAR SPINE WO CLINICAL HISTORY: fall, pain. TECHNIQUE: Imaging Protocol: Axial computed tomography images with coronal and sagittal reformatted images were created and reviewed. COMPARISON: CT CT HEAD WO from 08/31/2021 FINDINGS: Bones: No fractures or dislocations are seen. The alignment of the spine is normal including the thor acolumbar junction. Degenerative changes are seen in the thoracic spine. Soft tissues: The soft tissues are unremarkable. No large disk herniations are identified. There is a therosclerosis present. IMPRESSION: No acute fracture or subluxation of the lumbar spine. RADIATION DOSE DELIVERED: Total DLP Total DLP DATA REPOSITORY: All CT scans at this facility are submitted to the National Radiology Data Registry (NRDR) Dose Index Registry (DIR) with the [employer] (ACR). RADIATION OPTIMIZATION: All CT scans at this facility use at least one of these dose optimization te chniques: automated exposure control; mA and/or kV adjustment per patient size (includes targeted exa ms where dose is matched to clinical indication); or iterative reconstruction.
--- NOTE | 2021-09-07 19:00 | DI.CT_ITS ---
Exam(s) CT THORACIC SPINE RECONS CT CHEST WO EXAM: CT CHEST WO and CT thoracic spine recons CLINICAL HISTORY: fall, upper back pain. TECHNIQUE: Imaging protocol: Axial computed tomography images were obtained and coronal and sagittal reformatted images were created and reviewed. COMPARISON: CT CT HEAD WO from 08/31/2021 FINDINGS: The examination is limited due to patient motion artifact. Tracheobronchial tree: Patent where visualized. Pulmonary parenchyma: No consolidation or dominant measurable mass. Centrilobular emphysematous iverson es are present. Mediastinum and Anna: No dominant adenopathy or fluid collection. Small hiatal hernia. Thyroid gland: Unremarkable. Pleura: No effusion or pneumothorax. Heart: The heart is not dilated. Coronary artery calcifications are present. No pericardial effusion . Aorta: Thoracic aorta non-dilated. Atherosclerosis. Upper abdomen: Unremarkable. Lymph nodes: Within normal limits. Soft tissues: Unremarkable. Bones:Within normal limits for the patient's age. CT thoracic spine recons: There is DISH noted throughout the thoracic spine. No acute fractures or s ubluxations are seen in the thoracic spine. IMPRESSION: 1. No acute pulmonary process. 2. No acute fracture or subluxation in the thoracic spine. RADIATION DOSE DELIVERED: Total DLP DATA REPOSITORY: All CT scans at this facility are submitted to the National Radiology Data Registry (NRDR) Dose Index Registry (DIR) with the [employer] (ACR). RADIATION OPTIMIZATION: All CT scans at this facility use at least one of these dose optimization te chniques: automated exposure control; mA and/or kV adjustment per patient size (includes targeted exa ms where dose is matched to clinical indication); or iterative reconstruction.
--- NOTE | 2021-09-07 19:00 | DI.CT_ITS ---
Exam(s) CT HEAD CERVICAL SPINE WO EXAM: CT HEAD CERVICAL SPINE WO CLINICAL HISTORY: fall, pain. TECHNIQUE: Imaging Protocol: Axial computed tomography images with coronal and sagittal reformatted images were created and reviewed COMPARISON: CT CT HEAD WO from 08/31/2021 FINDINGS: CT Head: Ventricles and Extra axial spaces: Normal in size and morphology for the patient's age. Hemorrhage: None. Cerebral parenchyma: No acute territorial infarct. There are areas of decreased attenuation in the w margarita matter consistent with small vessel ischemic disease. Midline shift: None. Brainstem/Cerebellum: Normal. Calvarium: Normal. Visualized Paranasal sinuses/Mastoids: Stable chronic changes seen in the right maxillary sinus. The remaining visualized paranasal sinuses and mastoid air cells are clear. Soft Tissues: Unremarkable. CT Cervical Spine: Bones: No acute fracture or subluxation. Multilevel degenerative changes are seen in the cervical spi ne. Osteopenia. There is straightening of the normal cervical lordosis. This may be due to muscle spasm or patient positioning. Soft Tissues: Unremarkable. Lung Apices: Mild emphysematous changes are seen in the lung apices. Thyroid gland: Unremarkable. IMPRESSION: 1. No acute intracranial process. 2. No acute fracture or subluxation in the cervical spine. RADIATION DOSE DELIVERED: Total DLP DATA REPOSITORY: All CT scans at this facility are submitted to the National Radiology Data Registry (NRDR) Dose Index Registry (DIR) with the [employer] (ACR). RADIATION OPTIMIZATION: All CT scans at this facility use at least one of these dose optimization te chniques: automated exposure control; mA and/or kV adjustment per patient size (includes targeted exa ms where dose is matched to clinical indication); or iterative reconstruction.
--- NOTE | 2021-09-07 19:16 | ED.GENADUL_ITS ---
Discharge Plan Disposition Patient Disposition: HOME Condition: Stable Discharge Details Clinical Impression: Fall, Blunt head trauma, Blunt injury of back Primary Care Provider: Kathleen Azevedo ED Provider: Richard Verdugo Meds and New Rx's Prescriptions: Continued ipratropium-albuterol 0.5 mg-3 mg(2.5 mg base)/3 mL Solution For Nebulization 3 ml UPD Q4H PRN PRN (Reason: shortness of breath or wheezing) Qty: 180 RF: 0 pantoprazole 40 mg Tablet,Delayed Release (Dr/Ec) 40 mg PO DAILY@0730 Qty: 30 RF: 0 sennosides [Senokot] 8.6 mg Tablet 8.6 mg PO BID Qty: 60 RF: 0 acetaminophen [Mapap Arthritis Pain] 650 mg Tablet Extended Release 650 mg PO BID RF: 0 ondansetron HCl [Zofran] 4 mg tablet 4 mg PO Q8H PRNQty: 20 RF: 0 levothyroxine 150 mcg tablet 150 mcg PO DAILY RF: 0 docusate sodium 100 mg capsule 100 mg PO BID PRN PRNRF: 0 Trelegy Ellipta 100-62.5-25 mcg blister with device 1 inh INHALATION DAILY RF: 0 Flovent HFA 220 mcg/actuation HFA aerosol inhaler 2 inh INHALATION BID RF: 0 polyethylene glycol 3350 17 gram Powder In Packet 17 g PO BID Qty: 0 RF: 0 aripiprazole [Abilify] 5 mg Tablet 5 mg PO HS Qty: 30 RF: 0 aspirin 81 mg tablet,delayed release (DR/EC) 81 mg PO DAILY RF: 0 atorvastatin 80 mg tablet 80 mg PO DAILY RF: 0 Eliquis 5 mg tablet 5 mg PO BID Qty: 71 RF: 0 Discharge Instructions Instructions: Head Injury (ED) Additional Instructions: Imaging studies and laboratory studies look okay tonight. There is no evidence of traumatic injury on the CT scans. Home to continue current medications and medical care. Tylenol as needed for pain. Follow-up with primary care next week. Return to ED if problems. Referrals: Kathleen Azevedo [Primary Care Provider] - Medical Decision Making <Matthew Trinh MD - Last Filed: 09/07/21 19:24> 76 yo female with hx of asthma, hypothyroidism, PE, who comes in after a fall. She was recently discharged on 09/05 after being admitted for copd and CAP. She was sitting on her toilet this evening and slipped off and landed between the wall and toilet. No presyncope symptoms. Denies loc. She was not able to get herself up on her own and ems was finally contacted and brought her here. She was able to stand per ems with her cane. She is complaining of a headache, upper right back and midline T spine pain and pain over L1/L2 with no stepoff deformities. No abdominal tenderness or pain in the extremities. She has no midline c spine pain and no significant traumatic findings. She is tender over the right scapula and upper back as well. Suspect contusions from mechanical fall but given she is anticoagulated and has head ache will obtain ct head and c spine. Will obtain ct chest with T spine recons and L spine CT. Given lack of abdominal tenderness do not feel ct abdomen indicated. pt signed out to oncoming provider pending lab and imaging results and reassessment Differential Diagnosis Differential Diagnosis: fracture, contusion, rib fracture, compression fracture Medical Records Medical records reviewed: Yes I reviewed the patient's medical records. Lab Data Lab results reviewed: Yes I reviewed the patient's lab results. <Richard Verdugo MD - Last Filed: 09/07/21 21:24> Patient signed out to me pending imaging and laboratory studies returning. She had presented to ED status post fall at home. Seen initially by Dr. Trinh, please see his evaluation note. Patient was ambulatory on arrival here. Imaging of the head, cervical spine, chest/thoracic spine, LS spine are all negative for acute traumatic injury. Laboratory studies are unremarkable. Patient made aware of findings. She will be discharged home to continue current medications and follow-up with primary care. I will ask care management to check in on her tomorrow and make sure no other home services are necessary. Lab Data Lab results reviewed: Yes I reviewed the patient's lab results. HPI <Matthew Trinh MD - Last Filed: 09/07/21 19:24> General Mode of arrival: EMS . Date/Time Provider Initiated Documentation: 09/07/21 19:07 . Limitations to Documentation: no limitations . Information obtained by: patient . History of Present Illness 76 year old F presents to the emergency department with the chief complaint of back pain, described as moderate, and is localized to the back. Patient reports no radiation. Patient started experiencing this hour(s) (4) and it has been constant. No relieving factors improve symptom(s), No exacerbating factors reported . Patient notes no other symptoms.. Patient did receive the following treatments prior to arrival, none Related Data Home Medications Medication Instructions Recorded Confirmed aspirin 81 mg PO DAILY 09/22/20 09/07/21 ipratropium-albuterol 3 ml UPD Q4H PRN PRN #180 ml 10/07/20 09/07/21 pantoprazole 40 mg PO DAILY@0730 #30 tab 10/07/20 09/07/21 sennosides [Senokot] 8.6 mg PO BID #60 tab 10/07/20 09/07/21 acetaminophen [Mapap Arthritis 650 mg PO BID 01/01/21 09/07/21 Pain] atorvastatin 80 mg PO DAILY 06/15/21 09/07/21 Eliquis 5 mg PO BID #71 tab 06/16/21 09/07/21 ondansetron HCl [Zofran] 4 mg PO Q8H PRN #20 tab 07/23/21 09/07/21 Flovent HFA 2 inh INHALATION BID 08/30/21 09/07/21 Trelegy Ellipta 1 inh INHALATION DAILY 08/30/21 09/07/21 docusate sodium 100 mg PO BID PRN PRN 08/30/21 09/07/21 levothyroxine 150 mcg PO DAILY 08/30/21 09/07/21 aripiprazole [Abilify] 5 mg PO HS #30 tab 09/05/21 09/07/21 polyethylene glycol 3350 17 g PO BID #0 ea 09/05/21 09/07/21 Previous Rx's Medication Instructions Recorded ipratropium-albuterol 3 ml UPD Q4H PRN PRN #180 ml 10/07/20 pantoprazole 40 mg PO DAILY@0730 #30 tab 10/07/20 sennosides [Senokot] 8.6 mg PO BID #60 tab 10/07/20 Eliquis 5 mg PO BID #71 tab 06/16/21 ondansetron HCl [Zofran] 4 mg PO Q8H PRN #20 tab 07/23/21 aripiprazole [Abilify] 5 mg PO HS #30 tab 09/05/21 polyethylene glycol 3350 17 g PO BID #0 ea 09/05/21 Allergies Allergy/AdvReac Type Severity Reaction Status Date / Time Penicillins Allergy Intermediate Swelling/Ed Verified 09/07/21 19:02 demond Bees Allergy Uncoded 09/07/21 19:02 General Stated Complaint: GenMedical KAYA: 3 Review of Systems <Matthew Trinh MD - Last Filed: 09/07/21 19:24> All systems reviewed & are unremarkable except as noted in HPI and below Constitutional Constitutional: Denies chills, Denies fever(s) and Denies weakness Cardiovascular Cardiovascular: Denies chest pain and Denies dyspnea Respiratory Respiratory: Denies cough and Denies dyspnea Gastrointestinal Gastrointestinal: Denies abdominal pain, Denies nausea and Denies vomiting Musculoskeletal Musculoskeletal: Denies joint swelling Neurologic Neurologic: Denies weakness PFS <Matthew Trinh MD - Last Filed: 09/07/21 19:24> Medical History Aneurysm of infrarenal abdominal aorta Cholelithiasis CKD (chronic kidney disease) stage 3, GFR 30-59 ml/min COPD (chronic obstructive pulmonary disease) Diverticulosis Failure to thrive in adult Fracture of both ankles Hallucinations Hearing loss History of blood transfusion Hx of diabetes mellitus Hx of hyperlipidemia Hypertension Hypothyroidism Low back pain Memory impairment Non-insulin dependent diabetes mellitus Noncompliance with medication regimen Obesity Osteoarthritis of right knee Pain, joint, knee, right Seborrheic keratosis Smoker Urinary tract infection Surgical History History of bilateral tubal ligation History of hernia repair Family History Father Diabetes Social History Smoking/Tobacco Use Status: Current every day Tobacco Type: cigarettes Years smoked: 15 Tobacco: How many years used: 15 Counseling given: provider counseling and support medications Smoking risk assessment performed?: Yes Alcohol Intake: never Drug use: Never Substance use type: does not use Household members: none Housing: apartment Number of Children: 3 number of grandchildren: 1 What is your relationship status?: Panel score (0-1 are the most socially isolated patients): 0 What type of physical activity do you participate in: walking Seatbelt use: always Do you feel safe at home: Yes Do you feel safe in your relationship?: Yes Exam <Matthew Trinh MD - Last Filed: 09/07/21 19:24> Const General: no acute distress Orientation: alert HENNJ Head: normal to inspection Ears: external ears normal General nose exam: external nose normal Mouth: moist mucous membranes Eyes General: appearance normal, both eyes and all related structures Neck Neck: normal visual inspection Resp Effort & Inspection: normal respiratory effort and able to speak in complete sentences Cardio Rate: regular rate GI Palpation: soft and nontender Back/Spine/Pelvis Back: no CVA tenderness Skin General skin exam: no rashes or lesions noted Neuro General: patient alert and patient oriented x3 Extrem General: normal to inspection Psych Mental Status: mental status grossly normal Course <Matthew Trinh MD - Last Filed: 09/07/21 19:24> Vital Signs Vital signs: Vital Signs Temperature 36.4 C L 09/07/21 18:56 Pulse 93 H 09/07/21 18:56 Respiratory Rate 18 09/07/21 18:56 Blood Pressure 134/71 09/07/21 18:56 Pulse Oximetry 98 09/07/21 18:56 Temperature 36.4 C L 09/07/21 18:56 Pulse 93 H 09/07/21 18:56 Respiratory Rate 18 09/07/21 18:56 Respiratory Effort Non-Labored 09/07/21 19:06 Respiratory Depth Normal 09/07/21 19:06 Respiratory Pattern Normal 09/07/21 19:06 Blood Pressure 134/71 09/07/21 18:56 Blood Pressure Position Supine 09/07/21 18:56 Pulse Oximetry 98 09/07/21 18:56 Oxygen Delivery Method Room Air 09/07/21 18:56 Oxygen Flow Rate 0 09/07/21 18:56 Pain Level 9 09/07/21 18:56 Sign Out <Matthew Trinh MD - Last Filed: 09/07/21 19:24> Sign Out Data: Sign Out Comment: 76 yo on cristy fell off her toilet, head pain and back pain, pending labs and ct and reassessment Last updated by Matthew Trinh MD at 09/07/21 19:28
[2021-09-07] MEDS: Acetaminophen 500 MG TAB 1000 MG PO (19:32)
[2021-09-07 19:43] LABS: Abs Immature Grans 0.03 10^3/uL (0.0-0.06); Absolute Basophil Count 0.02 10^3/uL (0.0-0.2); Absolute Eosinophil Count 0.25 10^3/uL (0.0-0.7); Absolute Lymphocyte Count 1.07 10^3/uL (1.2-3.4); Absolute Monocyte Count 0.53 10^3/uL (0.1-0.8); Absolute Neutrophil Count 4.92 10^3/uL (1.2-6.7); Basophils % 0.3; Eosinophils % 3.7; HCT 41.1 % (36.0-46.0); HGB 12.6 g/dL (11.2-15.7); Immature Grans % 0.4; Lymphocytes % 15.7; MCH 27.7 pg (27.0-33.0); MCHC 30.7 % (32.0-36.0); MCV 90.3 fL (80-95); MPV 11.3 fL (8.0-11.0); Monocytes % 7.8; Neutrophils % 72.1; Nucleated RBC 0 %; Platelet Count 164 10^3/uL (130-400); RBC 4.55 10^6/uL (3.93-5.22); RDW 14.9 % (11.7-14.6); RDW-SD 49.4 fL; WBC 6.82 10^3/uL (4.4-10.8)
[2021-09-07 19:57] LABS: ALT 46 U/L (14-59); AST 38 U/L (15-37); Albumin 3.4 g/dL (3.4-5.0); Alkaline Phosphatase 116 U/L (46-116); Anion Gap 5.7 mmol/L (3-11); BUN 26 mg/dL (7-18); Bilirubin, Total 0.5 mg/dL (0.2-1.0); CO2 29.3 mmol/L (21.0-32.0); CREATININE 1.1 mg/dL (0.55-1.02); Calcium 8.9 mg/dL (8.5-10.1); Chloride 104 mmol/L (98-107); Creatine Kinase 163 U/L (26-192); Estimated GFR 48.55 (mL/min/1.73m2); Glucose 115 mg/dL (74-106); Magnesium 2.3 mg/dL (1.8-2.4); Potassium 4.6 mmol/L (3.5-5.1); Sodium 139 mmol/L (136-145); Total Protein 7.1 g/dL (6.4-8.2)
[2021-09-07 19:58] LABS: INR 0.9 (0.9-1.1); PTT Activated 25.4 sec (21.0-27.5); Prothrombin Time 9.5 sec (9.3-11.0)
--- NOTE | 2021-09-07 20:21 | DI.VRAD_ITS ---
PROCEDURE INFORMATION: Exam: CT Chest Without Contrast; Diagnostic Exam date and time: 09/07/2021 7:17 PM Age: 76 years old Clinical indication: Other: Fall TECHNIQUE: Imaging protocol: Diagnostic computed tomography of the chest without contrast. COMPARISON: CT THORAX ABD/PEL CTA 06/15/2021 12:46 AM FINDINGS: Lungs: Mild COPD. Pleural spaces: Unremarkable. No pneumothorax. No pleural effusion. Heart: Unremarkable. No cardiomegaly. No pericardial effusion. Aorta: Moderate aortic atherosclerotic change noted. Lymph nodes: Unremarkable. No enlarged lymph nodes. Bones/joints: Unremarkable. No acute fracture. Soft tissues: Unremarkable. Other findings: Respiratory motion slightly limits the exam. IMPRESSION: No acute posttraumatic abnormality evident. Dictated and Authenticated by: Marge Wan MD. Ordering:KING Castro MD
--- NOTE | 2021-09-07 20:26 | DI.VRAD_ITS ---
PROCEDURE INFORMATION: Exam: CT Lumbar Spine Without Contrast Exam date and time: 09/07/2021 7:17 PM Age: 76 years old Clinical indication: Other: Fall TECHNIQUE: Imaging protocol: Computed tomography images of the lumbar spine without contrast. COMPARISON: CT ABDOMEN PELVIS CTA 08/29/2021 11:20 PM FINDINGS: Vertebrae: There is mild lumbar spondylosis. Mild stenosis noted at the L4-L5 level. Vertebral body height is well preserved. No evidence for fracture. Discs/Spinal canal/Neural foramina: See Vertebrae finding. Vasculature: Moderate atherosclerotic change present in the vasculature. Soft tissues: Unremarkable. IMPRESSION: Spondylosis with mild lower lumbar stenosis. No evidence for fracture. Dictated and Authenticated by: Marge Wan MD. Ordering:KING Castro MD
--- NOTE | 2021-09-07 20:44 | DI.VRAD_ITS ---
PROCEDURE INFORMATION: Exam: CT Thoracic Spine Without Contrast Exam date and time: 09/07/2021 7:18 PM Age: 76 years old Clinical indication: Other: Fall TECHNIQUE: Imaging protocol: Computed tomography images of the thoracic spine without contrast. 3D rendering (Not supervised by radiologist): MIP and/or 3D reconstructed images were created by the technologist. COMPARISON: CT ABDOMEN PELVIS CTA 08/29/2021 11:20 PM FINDINGS: Vertebrae: No acute fracture. Normal alignment. Discs/Spinal canal/Neural foramina: No significant disc protrusion. No severe spinal canal stenosis. No significant neural foraminal narrowing. Soft tissues: Unremarkable. Lungs: COPD noted. IMPRESSION: No evidence for acute posttraumatic abnormality. Dictated and Authenticated by: Marge Wan MD. Ordering:KING Castro MD
[2021-09-07 20:59] LABS: Bilirubin Negative (Negative); Blood Negative (Negative); Clarity Clear (Clear); Glucose Negative (Negative); Ketones Negative (Negative); Leukocyte Esterase Negative (Negative); Nitrite Negative (Negative); Urobilinogen 0.2 EU/dL (Up TO 0.2)
--- NOTE | 2021-09-07 21:14 | DI.VRAD_ITS ---
PROCEDURE INFORMATION: Exam: CT Head Without Contrast Exam date and time: 09/07/2021 7:17 PM Age: 76 years old Clinical indication: Other: Fall TECHNIQUE: Imaging protocol: Computed tomography of the head without contrast. Total images: 1861 COMPARISON: MR BRAIN WO/W 09/01/2021 1:05 PM FINDINGS: Brain: Moderate generalized atrophy. Mild bilateral white matter hypodensities which are nonspecific but most commonly associated with chronic microvascular ischemia in this age group. No extra-axial fluid collections. No evidence of acute intracranial hemorrhage. Avila-white differentiation is well maintained. No CT evidence of large territory acute or subacute intracranial ischemia/infarct. No intracranial mass lesions. No midline shift or herniation. Cerebral ventricles: Ventricles normal. Paranasal sinuses: Changes of chronic sinusitis in the right maxillary sinus with complex 13 mm probable mucous retention cyst or polyp expands the anterior sinus wall, unchanged from 12/31/2020. Mastoid air cells: Visualized mastoid air cells are clear. Orbital cavity: Visualized orbital contents demonstrate no evidence of acute abnormality. Vasculature: Moderate calcific atherosclerosis. No asymmetric vascular hyperdensities suggestive of thrombosis are identified. Bones/joints: The calvarium and visualized facial bones are intact. Hyperostosis frontalis interna incidentally noted. Soft tissues: The scalp and visualized soft tissues demonstrate no acute abnormality. Chronic scarring in the left frontal scalp. Other findings: The IACs are grossly normal. The sella is grossly normal. IMPRESSION: 1. No acute intracranial process. No intracranial hemorrhage or mass effect. 2. Atrophy and chronic microvascular changes consistent with age. 3. Moderate calcific atherosclerosis. 4. Evidence of chronic right maxillary sinusitis. PROCEDURE INFORMATION: Exam: CT Cervical Spine Without Contrast Exam date and time: 09/07/2021 7:17 PM Age: 76 years old Clinical indication: Other: Fall TECHNIQUE: Imaging protocol: Computed tomography images of the cervical spine without contrast. COMPARISON: MR BRAIN WO/W 09/01/2021 1:05 PM FINDINGS: Bones/joints: Osteopenia. Craniocervical alignment is normal. The odontoid is intact. No fractures. Straightening of cervical lordosis which may be positional or related to an element of muscular strain/spasm. 2 mm degenerative anterolisthesis C2-C3. No blastic or lytic lesions. Broad posterior mixed spondylotic protrusion C5-C6 measuring 3.5 mm AP. Discs/Spinal canal/Neural foramina: The occipital condyles are intact. Mild degenerative sclerosis and spurring at the atlantodens interval. No jumped or perched facets. Left-sided facet ankylosis C2-C3 with mild-moderate facet hypertrophic changes on the left at C3-C4, C4-C5, and C7-T1. Moderate disc space narrowing with anterior and posterior spurring C3-C4. Mild disc space narrowing and marginal spurring C4-C5 through C6-C7. Mild-moderate central canal stenosis C5-C6 with AP thecal sac dimension 8.3 mm. Mild central canal stenosis C3-C4, 8.7 mm. There is right foraminal stenosis which is severe at C3-C4, and mild at C4-C5. There is left foraminal stenosis which is moderate-severe at C3-C4 and C4-C5. Thyroid: The visualized thyroid gland is unremarkable. Lungs: Mild centrilobular emphysematous changes in the pulmonary apices. Soft tissues: Paraspinous soft tissues are unremarkable without significant soft tissue swelling or soft tissue hematoma. IMPRESSION: 1. No evidence of fracture or acute traumatic subluxation. 2. Straightening of cervical lordosis which may be positional or related to an element of muscular strain/spasm. 3. Osteopenia and degenerative changes with mild-moderate central canal stenosis C5-C6 and mild canal stenosis C3-C4. Multilevel bilateral foraminal stenoses detailed above. Dictated and Authenticated by: Papo Castillo MD. Ordering:KING Castro MD
--- NOTE | 2021-09-07 21:29 | NUR.NOTE ---
Nursing Note: sent follow up with care management rena to care management
== END 2021-09-07 21:42 | disposition home or self-care (01) ==
PROVIDERS: Emergency Medicine; Emergency Provider Emergency Medicine; PCP Nurse Practitioner
DX: S09.8XXA Other specified injuries of head, initial encounter (principal); S29.8XXA Other specified injuries of thorax, initial encounter; W18.11XA Fall from or off toilet without subsequent striking against object, initial encounter; I12.9 Hypertensive chronic kidney disease with stage 1 through stage 4 chronic kidney disease, or unspecified chronic kidney disease; N18.9 Chronic kidney disease, unspecified; M54.59 Other low back pain; Z79.01 Long term (current) use of anticoagulants
CPT/HCPCS: 36415; 51701; 71250; 80053; 82550; 99284; 70450; 72125; 72131; 81003; 83735; 85025; 85610; 85730

== ENCOUNTER 2021-09-16 10:09 | Emergency (ER) | payer OTHER, MEDICAID, SELFPAY ==
[2021-09-16] VITALS (25 sets, daily range): BP systolic 92–130; BP diastolic 41–68; PULSE 82–108; RESP 16–28; TEMP 36.4; O2SAT 91–100
--- NOTE | 2021-09-16 10:00 | RT.EKG_ITS ---
APPROVED REPORT Exam: Resting ECG Reason for Exam: sob Patient Location: E HR:92 bpm ECG Measurements Heart Rate 92 AXIS AZ 164 P 75 QRSd 84 QRS -34 QT 357 T 60 QTc 443 Conclusion Sinus rhythm...normal P axis Left axis deviation
--- NOTE | 2021-09-16 10:18 | W.ED.GENAD ---
Discharge Plan Disposition Patient Disposition: HOME Condition: Improving Discharge Details Clinical Impression: COPD exacerbation Primary Care Provider: Kathleen Azevedo ED Provider: Sandeep Gleason Home Meds and New Rx's Prescriptions: New prednisone 20 mg tablet 60 mg PO DAILY 5 Days Qty: 15 RF: 0 Continued ipratropium-albuterol 0.5 mg-3 mg(2.5 mg base)/3 mL Solution For Nebulization 3 ml UPD Q4H PRN PRN (Reason: shortness of breath or wheezing) Qty: 180 RF: 0 pantoprazole 40 mg Tablet,Delayed Release (Dr/Ec) 40 mg PO DAILY@0730 Qty: 30 RF: 0 sennosides [Senokot] 8.6 mg Tablet 8.6 mg PO BID Qty: 60 RF: 0 acetaminophen [Mapap Arthritis Pain] 650 mg Tablet Extended Release 650 mg PO BID RF: 0 ondansetron HCl [Zofran] 4 mg tablet 4 mg PO Q8H PRNQty: 20 RF: 0 levothyroxine 150 mcg tablet 150 mcg PO DAILY RF: 0 docusate sodium 100 mg capsule 100 mg PO BID PRN PRNRF: 0 Trelegy Ellipta 100-62.5-25 mcg blister with device 1 inh INHALATION DAILY RF: 0 Flovent HFA 220 mcg/actuation HFA aerosol inhaler 2 inh INHALATION BID RF: 0 polyethylene glycol 3350 17 gram Powder In Packet 17 g PO BID Qty: 0 RF: 0 aspirin 81 mg tablet,delayed release (DR/EC) 81 mg PO DAILY RF: 0 atorvastatin 80 mg tablet 80 mg PO DAILY RF: 0 Eliquis 5 mg tablet 5 mg PO BID Qty: 71 RF: 0 Discharge Instructions Instructions: COPD (Chronic Obstructive Pulmonary Disease) (ED) Additional Instructions: Evaluation today does not reveal any obvious emergent process. No evidence of blood clot in your lungs, pneumonia, Covid, congestive heart failure, etc. You were given 2 breathing treatments and a single dose of IV steroids. We had you walk around the ER using her cane and her oxygen level stayed in an appropriate level. I am providing you with a 5-day dose of burst steroids. Be sure to take your medications as directed especially your inhalers and use your rescue inhaler as directed. Watch for new or worsening symptoms and return to the ER for any concerns. Otherwise I would like you to contact your primary care provider on Saturday to discuss your ER visit, ongoing symptoms, and need for outpatient reevaluation. Discharge Data Discharge Date/Time-TO BE ENTERED AT DEPARTURE: 09/16/21 13:34 Medical Decision Making 76-year-old female, current smoker, history of COPD, presents from the urgent care reporting worsening dyspnea over the past week. Clinically she appears nontoxic, no respiratory distress, speaking in full sentences, no tachypnea or hypoxemia. O2 sat 95% on room air. Does have expiratory wheezing. Will provide 125 IV Solu-Medrol for potential COPD exacerbation. We will also provide 2 albuterol nebs. Will obtain cardiac work-up including BNP, and given the length of symptoms a single troponin. She is afebrile, no evidence of sepsis, will not initiate a septic work-up. She is not requiring any supplemental oxygen. Will obtain a Covid test as well. Given the medical record reporting noncompliance, will obtain CTA of the chest given her history of PE and subjective complaint of dyspnea. Patient reports significant improvement after the neb treatments. Laboratory values reveal no evidence of leukocytosis, anemia, her platelet count is 150. INR 1.0 electrolytes unremarkable, creatinine 1.0 with a GFR of 4.20, glucose 120, calcium 8.9 magnesium 2.1 troponin less than 0.05 BNP only minimally elevated at 320. Covid is negative. CTA unremarkable. Discussed work-up with patient. She reports significant improvement of her this. Patient O2 sat is 97% on room air and after trial ambulation around the ER using her cane her O2 remains 93% on room air. Laboratory values do not reveal any obvious emergent process. She is not requiring any supplemental oxygen. Patient states that she feels well with prefer to be discharged home. No clear indication for antibiotic therapy. Likely COPD exacerbation. Plan is to provide burst dose of steroids prescription. Strict discharge and return precautions provided. Otherwise patient will reach out to her primary care provider on Saturday to discuss her ongoing symptoms and need for outpatient reevaluation. This documentation was generated using [employer] system, please disregard any oddities of phrase or misspellings. Medical Records Medical records reviewed: Yes I reviewed the patient's medical records. Imaging Data Radiologic Study: Attestation: I personally reviewed and interpreted this imaging study as follows: Imaging: CT Scan Radiologist's impression: PROCEDURE INFORMATION: Exam: CTA Chest With Contrast Exam date and time: 09/16/2021 10:44 AM Age: 76 years old Clinical indication: Other: SOB, HX of copd/pe TECHNIQUE: Imaging protocol: Computed tomographic angiography of the chest with contrast. 3D rendering (Not supervised by radiologist): MIP and/or 3D reconstructed images were created by the technologist. Contrast material: OMNIPAQUE 350; Contrast volume: 100 ml; Contrast route: INTRAVENOUS (IV); COMPARISON: CT THORAX ABD/PEL CTA 06/15/2021 12:46 AM FINDINGS: Pulmonary arteries: No evidence of pulmonary embolus to the segmental level. Aorta: No aneurysm of the aorta. No dissection of the aorta. Lungs: Mild panlobular emphysematous changes. Right basilar atelectasis Pleural spaces: Unremarkable. No pneumothorax. No pleural effusion. Heart: Unremarkable. No cardiomegaly. No pericardial effusion. Lymph nodes: Unremarkable. No enlarged lymph nodes. Bones/joints: Unremarkable. No acute fracture. Soft tissues: Unremarkable. IMPRESSION: 1. No evidence of pulmonary embolus to the segmental level. 2. No aneurysm of the aorta. 3. No dissection of the aorta. SHABBIR ALFONOS Preliminary Radiology Report PARTS PROCESSOR (QA) DISCREPANCY? If there is a discrepancy between the preliminary and final interpretation, please notify [facility] via [email or web address]. If you do not have access to our QA portal, call our QA team at [phone] CONFIDENTIALITY STATEMENT This report is intended only for the use of the referring physician, and only in accordance with law, If you received this in error, call [phone] Page 2 of 2 Thank you for allowing us to participate in the care of your patient. Lab Data Lab results reviewed: Yes I reviewed the patient's lab results. Labs: Laboratory Tests Range/Units 09/16/21 09/16/21 09/16/21 10:50 10:50 10:50 WBC (4.4-10.8) 10^3/uL RBC (3.93-5.22) 10^6/uL Hgb (11.2-15.7) g/dL Hct (36.0-46.0) % MCV (80-95) fL MCH (27.0-33.0) pg MCHC (32.0-36.0) % RDW (11.7-14.6) % Plt Count (130-400) 10^3/uL MPV (8.0-11.0) fL Immature Gran % Neutrophils % Lymphocytes % Monocytes % Eosinophils % Basophils % Nucleated RBC % % Absolute Neutrophils (1.2-6.7) 10^3/uL Absolute Lymphocytes (1.2-3.4) 10^3/uL Absolute Monocytes (0.1-0.8) 10^3/uL Absolute Eosinophils (0.0-0.7) 10^3/uL Absolute Basophils (0.0-0.2) 10^3/uL PT Cancelled INR Cancelled APTT Cancelled Sodium (136-145) mmol/L 141 Potassium (3.5-5.1) mmol/L 4.0 Chloride (98-107) mmol/L 103 Carbon Dioxide (21.0-32.0) mmol/L 34.1 H Anion Gap (3-11) mmol/L 3.9 BUN (7-18) mg/dL 19 H Creatinine (0.55-1.02) mg/dL 1.0 Estimated GFR/1.73 m2 (mL/min/1.73m2) 54.20 Glucose (74-106) mg/dL 120 H Calcium (8.5-10.1) mg/dL 8.9 Magnesium (1.8-2.4) mg/dL 2.1 Total Bilirubin (0.2-1.0) mg/dL 0.4 AST (15-37) U/L 20 ALT (14-59) U/L 33 Alkaline Phosphatase (46-116) U/L 119 H Troponin I (<0.06) ng/mL < 0.05 NT-Pro-B Natriuret Pep (<300) pg/mL 320 H Total Protein (6.4-8.2) g/dL 7.4 Albumin (3.4-5.0) g/dL 3.4 COVID-19 Source SARS-CoV-2 (PCR) (Negative) Range/Units 09/16/21 09/16/21 09/16/21 10:50 10:50 11:20 WBC (4.4-10.8) 10^3/uL 5.34 RBC (3.93-5.22) 10^6/uL 4.46 Hgb (11.2-15.7) g/dL 12.4 Hct (36.0-46.0) % 40.3 MCV (80-95) fL 90.4 MCH (27.0-33.0) pg 27.8 MCHC (32.0-36.0) % 30.8 L RDW (11.7-14.6) % 14.9 H Plt Count (130-400) 10^3/uL 150 MPV (8.0-11.0) fL 11.3 H Immature Gran % 0.2 Neutrophils % 69.6 Lymphocytes % 18.4 Monocytes % 7.7 Eosinophils % 3.7 Basophils % 0.4 Nucleated RBC % % 0 Absolute Neutrophils (1.2-6.7) 10^3/uL 3.72 Absolute Lymphocytes (1.2-3.4) 10^3/uL 0.98 L Absolute Monocytes (0.1-0.8) 10^3/uL 0.41 Absolute Eosinophils (0.0-0.7) 10^3/uL 0.20 Absolute Basophils (0.0-0.2) 10^3/uL 0.02 PT 9.9 INR 1.0 APTT 25.8 Sodium (136-145) mmol/L Potassium (3.5-5.1) mmol/L Chloride (98-107) mmol/L Carbon Dioxide (21.0-32.0) mmol/L Anion Gap (3-11) mmol/L BUN (7-18) mg/dL Creatinine (0.55-1.02) mg/dL Estimated GFR/1.73 m2 (mL/min/1.73m2) Glucose (74-106) mg/dL Calcium (8.5-10.1) mg/dL Magnesium (1.8-2.4) mg/dL Total Bilirubin (0.2-1.0) mg/dL AST (15-37) U/L ALT (14-59) U/L Alkaline Phosphatase (46-116) U/L Troponin I (<0.06) ng/mL NT-Pro-B Natriuret Pep (<300) pg/mL Total Protein (6.4-8.2) g/dL Albumin (3.4-5.0) g/dL COVID-19 Source Nasal/Nares SARS-CoV-2 (PCR) (Negative) Negative ECG Data Attestation: I personally reviewed and interpreted this ECG (s) as follows: Interpretation: Please see official report by Dr. Gregorio. Sinus rhythm, ventricular rate 92. No STEMI. HPI General Mode of arrival: EMS. Date/Time Provider Initiated Documentation: 09/16/21 10:18. Limitations to Documentation: no limitations. Information obtained by: patient and EMS. HPI Narrative: This is a 76-year-old female, current smoker, past medical history of CKD, COPD, diabetes, hypertension, hypothyroidism, chronic low back pain, medical record states noncompliance however patient reports taking all medications as directed, obesity, PE, on Eliquis, presenting to the ER via EMS from urgent care for worsening cold-like symptoms and shortness of breath x1 week. Patient lives at home by herself, typically ambulates with a cane, walks approximately 1/4 mile to the urgent care today. Patient reports at times feeling warm over the past week but no documented fever, denies headache, neck pain, chest pain, productive cough, abdominal pain, nausea, vomiting, dysuria, diarrhea, pain or swelling in her legs, recent travel or sick contacts. Reports that she is fully vaccinated against Covid. Patient tells me that she was given a neb treatment via EMS and her breathing already feels much improved. Patient states that the neb treatment made her feel jittery. Her triage note reports dizziness when lying down however patient denies any dizziness to me. Related Data Home Medications Medication Instructions Recorded Confirmed aspirin 81 mg PO DAILY 09/22/20 09/16/21 ipratropium-albuterol 3 ml UPD Q4H PRN PRN #180 ml 10/07/20 09/16/21 pantoprazole 40 mg PO DAILY@0730 #30 tab 10/07/20 09/16/21 sennosides [Senokot] 8.6 mg PO BID #60 tab 10/07/20 09/16/21 acetaminophen [Mapap Arthritis 650 mg PO BID 01/01/21 09/16/21 Pain] atorvastatin 80 mg PO DAILY 06/15/21 09/16/21 Eliquis 5 mg PO BID #71 tab 06/16/21 09/16/21 ondansetron HCl [Zofran] 4 mg PO Q8H PRN #20 tab 07/23/21 09/16/21 Flovent HFA 2 inh INHALATION BID 08/30/21 09/16/21 Trelegy Ellipta 1 inh INHALATION DAILY 08/30/21 09/16/21 docusate sodium 100 mg PO BID PRN PRN 08/30/21 09/16/21 levothyroxine 150 mcg PO DAILY 08/30/21 09/16/21 polyethylene glycol 3350 17 g PO BID #0 ea 09/05/21 09/16/21 prednisone 60 mg PO DAILY 5 Days #15 tab 09/16/21 Previous Rx's Medication Instructions Recorded ipratropium-albuterol 3 ml UPD Q4H PRN PRN #180 ml 10/07/20 pantoprazole 40 mg PO DAILY@0730 #30 tab 10/07/20 sennosides [Senokot] 8.6 mg PO BID #60 tab 10/07/20 Eliquis 5 mg PO BID #71 tab 06/16/21 ondansetron HCl [Zofran] 4 mg PO Q8H PRN #20 tab 07/23/21 polyethylene glycol 3350 17 g PO BID #0 ea 09/05/21 prednisone 60 mg PO DAILY 5 Days #15 tab 09/16/21 Allergies Allergy/AdvReac Type Severity Reaction Status Date / Time Penicillins Allergy Intermediate Swelling/Ed Verified 09/16/21 10:25 demond Bees Allergy Uncoded 09/16/21 10:25 General KAYA: 3 Review of Systems Constitutional Constitutional: Denies fatigue, Denies fever(s), Denies headache(s) and Denies weakness ENT Ears, Nose, Mouth, and Throat: Denies headache(s) and Denies neck pain Cardiovascular Cardiovascular: Denies chest pain and Reports dyspnea Respiratory Respiratory: Reports cough (chronic) and Reports dyspnea Gastrointestinal Gastrointestinal: Denies abdominal pain, Denies nausea and Denies vomiting Genitourinary Genitourinary: Denies dysuria Musculoskeletal Musculoskeletal: Reports back pain and Denies neck pain Integumentary/Breasts Skin/Breast: Denies rash Neurologic Neurologic: Denies headache(s) and Denies weakness Endocrine Endocrine: Denies fatigue Hematologic/Lymphatic Hematologic/Lymphatic: Reports easy bleeding and Reports easy bruising [facility] Medical History Aneurysm of infrarenal abdominal aorta Cholelithiasis CKD (chronic kidney disease) stage 3, GFR 30-59 ml/min COPD (chronic obstructive pulmonary disease) Diverticulosis Failure to thrive in adult Fracture of both ankles Hallucinations Hearing loss History of blood transfusion Hx of diabetes mellitus Hx of hyperlipidemia Hypertension Hypothyroidism Low back pain Memory impairment Non-insulin dependent diabetes mellitus Noncompliance with medication regimen Obesity Osteoarthritis of right knee Pain, joint, knee, right Seborrheic keratosis Smoker Urinary tract infection Surgical History History of bilateral tubal ligation History of hernia repair Family History Father Diabetes Social History Smoking/Tobacco Use Status: Current every day Tobacco Type: cigarettes Years smoked: 15 Tobacco: How many years used: 15 Counseling given: provider counseling and support medications Smoking risk assessment performed?: Yes Alcohol Intake: never Drug use: Never Substance use type: does not use Household members: none Housing: apartment Number of Children: 3 number of grandchildren: 1 What is your relationship status?: Panel score (0-1 are the most socially isolated patients): 0 What type of physical activity do you participate in: walking Seatbelt use: always Do you feel safe at home: Yes Do you feel safe in your relationship?: Yes Exam Const General: cooperative, comfortable, no acute distress and ill appearing chronically Orientation: alert, awake and oriented x3 HENMT Head: normal to inspection, normocephalic and atraumatic General nose exam: external nose normal Face and sinus: normal facial exam Mouth: moist mucous membranes abnormal (Slightly dry) Throat: posterior oropharynx normal Eyes General: appearance normal, both eyes and all related structures Conjunctivae: conjunctivae normal Neck Neck: normal visual inspection, full ROM, no lymphadenopathy, no meningeal signs, trachea midline, supple and nontender Resp Effort & Inspection: normal respiratory effort, able to speak in complete sentences and cough Quality of cough: dry (Mild) Auscultation: wheezes expiratory wheezes (Scattered, mostly clear with cough) Cardio Rate: regular rate Rhythm: regular rhythm GI Inspection: obesity Palpation: soft and nontender Back/Spine/Pelvis Back: no CVA tenderness and No back tenderness Skin General skin exam: no rashes or lesions noted Neuro General: patient alert, patient awake, moves all extremities and no focal motor deficits Cognition: normal cognition Speech: speech normal Gait: gait assisted Motor: muscle tone normal throughout Sensory Exam: no sensory deficits noted Extrem General: full ROM, capillary refill normal, no calf tenderness and pedal edema bilaterally non-pitting and 1+ (Baseline per patient) Psych Appearance: grossly normal Mental Status: mental status grossly normal
--- NOTE | 2021-09-16 10:30 | DI.CT_ITS ---
Exam(s) CT CHEST PE CTA EXAM: CT CHEST PE CTA CLINICAL HISTORY: sob, hx of copd/PE. TECHNIQUE: Imaging Protocol: CT angiography of the chest was performed using pulmonary embolus jacinda col. Multi planar reconstructions were performed. CONTRAST MATERIAL: Intravenous: Omnipaque 350 Contrast volume: 100 cc COMPARISON: CT CT LUMBAR SPINE WO from 09/07/2021 FINDINGS: CHEST: PULMONARY ARTERIES: There are no intraluminal filling defects to suggest acute pulmonary emboli. LUNGS: Mild increased markings are noted in the medial aspect of the posterior basal segment of the r ight lower lobe. No associated pleural effusion. Remainder of the right lung is clear. There are n o significant focal findings in the left upper lobe. There is a 6 millimeter nodular infiltrate in t he posterior basal segment of the left lower lobe. No pleural effusion.. There are no pleural effus ions. MEDIASTINUM: Slightly increased lymph nodes in the right hilum. The left hilum appears unremarkable. However, there is slightly prominent lymph nodes just below the aortopulmonic window on the left an d anterior to the esophagus at this level. Visualized thyroid unremarkable. CARDIAC: Heart size is upper normal. There is no pericardial effusion.Caliber of the thoracic aorta is within normal limits. There is no significant shift of the interventricular septum. PARTIALLY VISUALIZED UPPERMOST ABDOMEN: No obvious findings OSSEOUS: No significant osseous lesions.. IMPRESSION: 1. No evidence of acute pulmonary emboli. No evidence of pulmonary infarction.No pleural effusions. 2. Mild increased markings in the right lower lobe posterior basal segment and small nodular infiltra te in the posterior basal segment of the left lower lobe. This can be followed with repeat CT scan i n a few months time. In addition, there are slightly enlarged lymph nodes in the right hilum. Also few slightly prominent lymph nodes on the left just anterior to the level of the esophagus. RADIATION DOSE DELIVERED: 592.1mGy.cm Total DLP DATA REPOSITORY: All CT scans at this facility are submitted to the National Radiology Data Registry (NRDR) Dose Index Registry (DIR) with the [employer] (A[employer]). RADIATION OPTIMIZATION: All CT scans at this facility use at least one of these dose optimization te chniques: automated exposure control; mA and/or kV adjustment per patient size (includes targeted exa ms where dose is matched to clinical indication); or iterative reconstruction.
--- OUTSIDE RECORDS SUMMARY | 2021-09-16 10:36 | XMS_ITS ---
:1945 Author Care Team Providers Name Role Phone MARISELA GARCIAS Primary Care Provider [phone] [facility] Primary Care Provider [phone] Allergies Code Code System Name Reaction Severity Status Onset Bee Venom ? ? Active ? Protein (Honey Bee) Penicillins Facial ? Active ? Swelling Medications Name Status Start Date Stop Date ? ? Advil 200 mg tablet Active ? Not availabl e Take 2 tablets every day by oral route. albuterol sulfate 2.5 mg/3 mL (0.083 %) solution for nebulizatio n Active ? Not available Inhale 3 mL 3 times a day by nebulization route. aspirin 81 mg tablet,delayed release Active ? Not available Take 1 tablet every day by oral route. Breo Ellipta 200 mcg-25 mcg/dose powder for inhalation Completed ? 12/05/2018 Inhale 1 puff every day by inhalation route for 30 days. Colace 100 mg capsule Active ? Not availa ble Take 1 capsule twice a day by oral route. Diphenhydramine HCl (Sleep) 25 mg tablet Active ? Not available Take 2 tablets every day by oral route at bedtime. Incruse Ellipta 62.5 mcg/actuation powder for inhalation Complet ed ? 12/05/2018 Inhale 1 puff every day by inhalation route. Lasix 20 mg tablet Active ? Not available Take 2 tablets every day by oral route. levothyroxine 137 mcg tablet Active ? Not available Take 1 tablet every day by oral route. lisinopril 40 mg tablet Active ? Not avai lable Take 1 tablet every day by oral route. Miralax 17 gram/dose oral powder Active ? Not available Take by oral route. Pravachol 20 mg tablet Active ? Not avail able Take 1 tablet every day by oral route. prednisone 10 mg tablet Completed ? 12/05/19 19 Take 4 tablets every day by oral route for 3 days, then take 3 tablets every day by oral route for 3 days, then take 2 tablets every day by oral route for 3 days, and then take 1 tablet every day by oral route for 3 days. ProAir HFA 90 mcg/actuation aerosol inhaler Active ? Not available Inhale 1 puff every 4 hours by inhalation route. Trelegy Ellipta 100 mcg-62.5 mcg-25 mcg powder for inhalation Ac tive ? Not available INHALE 1 PUFF BY MOUTH EVERY DAY Zithromax Z-Marcelo 250 mg tablet Completed ? TAKE 2 TABLETS (500 MG) BY ORAL ROUTE O NCE DAILY FOR 1 DAY THEN 1 TABLET (250 MG) BY ORAL ROUTE ONCE DAILY FOR 4 DAYS Problems Name Status Onset Date Source ? Hypothyroidism Active 10/20/2018 ? Hyperlipidemia Active 10/20/2018 ? Morbid Obesity Active 10/20/2018 ? Migraine Active 10/20/2018 ? Hypertensive Disorder Active 10/20/2018 ? Edema Active 10/20/2018 ? Dyspnea Active 10/20/2018 ? Renal Insufficiency Active 10/20/2018 ? Chronic Obstructive Lung Disease Active ? History Procedures Date Name Performed by ? ? Tubal Ligation Information not avai lable 10/24/2018 LDCT, Chest, for Lung Cancer Xray [facility] [address] [place], [place] [address] ([address]) 12/05/2018 LDCT, Chest, for Lung Cancer Xray [facility] [address] [place], [place] [address] ([facility] [address]) Results Lab Results None recorded. Past Encounters None recorded. Social History Tobacco Smoking Status Former Smoker Notes: quit Vaccine List Vaccine Type influenza, injectable, quadrivalent 08/11/2018 influenza, seasonal, injectable 12/13/2015 pneumococcal conjugate PCV 13 09/06/2016 pneumococcal polysaccharide PPV23 11/18/2011 Tdap 04/11/2012 Plan of Care Reminders Provider Appointments None ? ? recorded. Lab None ? ? recorded. Referral None ? ? recorded. Procedures None ? ? recorded. Surgeries None ? ? recorded. Imaging None ? ? recorded. Vitals 12/05/2018 12:30PM Office 30 Height Weight BMI Blood Pressure 162.56 cm 100.9 kg 38.2 kg/m2 100/58 mm[Hg] 10/24/2018 01:00PM Office 30 Height Weight BMI Blood Pressure 162.56 cm 99.3 kg 37.6 kg/m2 100/60 mm[Hg] 05/04/2016 Height Weight Blood Pressure 162.56 cm 134.26 kg 120/78 mm[Hg]
[2021-09-16 11:00] LABS: Source Nasal/Nares
[2021-09-16] MEDS: Omnipaque 350 MG/ML 100 ML BTL IJ (11:03)
[2021-09-16] MEDS: Normal Saline - Diluent 50 ML VIAL IV (11:03)
[2021-09-16 11:04] LABS: Abs Immature Grans 0.01 10^3/uL (0.0-0.06); Absolute Basophil Count 0.02 10^3/uL (0.0-0.2); Absolute Lymphocyte Count 0.98 10^3/uL (1.2-3.4); Absolute Monocyte Count 0.41 10^3/uL (0.1-0.8); Absolute Neutrophil Count 3.72 10^3/uL (1.2-6.7); Basophils % 0.4; Eosinophils % 3.7; HCT 40.3 % (36.0-46.0); HGB 12.4 g/dL (11.2-15.7); Immature Grans % 0.2; Lymphocytes % 18.4; MCH 27.8 pg (27.0-33.0); MCHC 30.8 % (32.0-36.0); MCV 90.4 fL (80-95); MPV 11.3 fL (8.0-11.0); Monocytes % 7.7; Neutrophils % 69.6; Nucleated RBC 0 %; Platelet Count 150 10^3/uL (130-400); RBC 4.46 10^6/uL (3.93-5.22); RDW 14.9 % (11.7-14.6); RDW-SD 49.4 fL; WBC 5.34 10^3/uL (4.4-10.8)
[2021-09-16] MEDS: Normal Saline Flush 10 ML SYR IVP (11:05)
--- NOTE | 2021-09-16 11:18 | DI.VRAD_ITS ---
PROCEDURE INFORMATION: Exam: CTA Chest With Contrast Exam date and time: 09/16/2021 10:44 AM Age: 76 years old Clinical indication: Other: SOB, HX of copd/pe TECHNIQUE: Imaging protocol: Computed tomographic angiography of the chest with contrast. 3D rendering (Not supervised by radiologist): MIP and/or 3D reconstructed images were created by the technologist. Contrast material: OMNIPAQUE 350; Contrast volume: 100 ml; Contrast route: INTRAVENOUS (IV); COMPARISON: CT THORAX ABD/PEL CTA 06/15/2021 12:46 AM FINDINGS: Pulmonary arteries: No evidence of pulmonary embolus to the segmental level. Aorta: No aneurysm of the aorta. No dissection of the aorta. Lungs: Mild panlobular emphysematous changes. Right basilar atelectasis Pleural spaces: Unremarkable. No pneumothorax. No pleural effusion. Heart: Unremarkable. No cardiomegaly. No pericardial effusion. Lymph nodes: Unremarkable. No enlarged lymph nodes. Bones/joints: Unremarkable. No acute fracture. Soft tissues: Unremarkable. IMPRESSION: 1. No evidence of pulmonary embolus to the segmental level. 2. No aneurysm of the aorta. 3. No dissection of the aorta. Dictated and Authenticated by: Erica Doyle MD. Ordering:CORRINE Hopkins MD
[2021-09-16] MEDS: Albuterol 2.5 MG/3 ML INH SOLN VIAL UPD ×2 (11:20)
[2021-09-16] MEDS: methylPREDNISolone SUCC 125 MG VIAL IVP (11:20)
[2021-09-16 11:22] LABS: ALT 33 U/L (14-59); AST 20 U/L (15-37); Albumin 3.4 g/dL (3.4-5.0); Alkaline Phosphatase 119 U/L (46-116); Anion Gap 3.9 mmol/L (3-11); BUN 19 mg/dL (7-18); Bilirubin, Total 0.4 mg/dL (0.2-1.0); CO2 34.1 mmol/L (21.0-32.0); Calcium 8.9 mg/dL (8.5-10.1); Chloride 103 mmol/L (98-107); Glucose 120 mg/dL (74-106); Sodium 141 mmol/L (136-145); Total Protein 7.4 g/dL (6.4-8.2); Troponin I < 0.05 ng/mL (<0.06)
[2021-09-16 11:23] LABS: Magnesium 2.1 mg/dL (1.8-2.4); NT-proBNP 320 pg/mL (<300)
[2021-09-16 11:42] LABS: PTT Activated 25.8 sec (21.0-27.5); Prothrombin Time 9.9 sec (9.3-11.0)
[2021-09-16 11:50] LABS: COVID-19 PCR Negative (Negative)
== END 2021-09-16 13:34 | disposition home or self-care (01) ==
PROVIDERS: Emergency Provider Physician Assistant; PCP Nurse Practitioner
DX: J44.1 Chronic obstructive pulmonary disease with (acute) exacerbation (principal); R06.02 Shortness of breath; Z86.711 Personal history of pulmonary embolism
CPT/HCPCS: 36415; 71275; 80053; 87635; 93005; 94640; 96374; 99285; 83735; 83880; 84484; 85025; 85610; 85730; 93010; 99284; J2930; J3490; J7613

== ENCOUNTER 2021-09-19 01:22 | Emergency (ER) | payer OTHER, MEDICAID, SELFPAY ==
[2021-09-19 01:26] VITALS: BP 153/71; PULSE 90; RESP 18; TEMP 36.5; O2SAT 94
--- NOTE | 2021-09-19 01:45 | DI.RAD_ITS ---
Exam(s) XR SHOULDER RT COMPLETE 2+V EXAM: XR SHOULDER RT COMPLETE 2+V CLINICAL HISTORY: fall, pain TECHNIQUE: COMPARISON: CR XR SHOULDER RT COMPLETE 2+V from 08/31/2020 FINDINGS: Six views were obtained, there is no evidence of acute fracture or dislocation. IMPRESSION: RADIATION DOSE DELIVERED: Total DLP
--- NOTE | 2021-09-19 01:45 | DI.CT_ITS ---
Exam(s) CT HEAD CERVICAL SPINE WO EXAM: CT HEAD CERVICAL SPINE WO COMPARISON: CT CT LUMBAR SPINE WO from 09/07/2021 FINDINGS: CT examination of the cervical spine was performed without contrast administration. There are moderate degenerative changes of the cervical spine. There is no evidence of acute cervical spine fracture or dislocation. Intervertebral disc spaces are well maintained. Tracheolaryngeal structures appear intact. No cervical mass or adenopathy. Noncontrast cranial CT was performed. There are mild changes of cerebral atrophy. No evidence of acute intracranial hemorrhage, mass effect, or midline shift. No calvarial fracture. The orbital and temporal bone structures appear intact. Visualized mastoid air cells and paranasal sinuses appear clear. IMPRESSION: No evidence of acute cervical spine injury. No evidence of acute intracranial injury. RADIATION DOSE DELIVERED: 1,267.34mGy.cm Total DLP 1,267.34mGy.cm Total DLP 27.88mGy CTDIvol DATA REPOSITORY: All CT scans at this facility are submitted to the National Radiology Data Registry (NRDR) Dose Index Registry (DIR) with the [employer] (ACR). RADIATION OPTIMIZATION: All CT scans at this facility use at least one of these dose optimization te chniques: automated exposure control; mA and/or kV adjustment per patient size (includes targeted exa ms where dose is matched to clinical indication); or iterative reconstruction.
--- NOTE | 2021-09-19 01:52 | W.ED.GENAD ---
Discharge Plan Disposition Patient Disposition: HOME Condition: Improving Discharge Details Clinical Impression: Fall, Contusion Primary Care Provider: Kathleen Azevedo ED Provider: Chance Gregorio Home Meds and New Rx's Prescriptions: Continued ipratropium-albuterol 0.5 mg-3 mg(2.5 mg base)/3 mL Solution For Nebulization 3 ml UPD Q4H PRN PRN (Reason: shortness of breath or wheezing) Qty: 180 RF: 0 pantoprazole 40 mg Tablet,Delayed Release (Dr/Ec) 40 mg PO DAILY@0730 Qty: 30 RF: 0 sennosides [Senokot] 8.6 mg Tablet 8.6 mg PO BID Qty: 60 RF: 0 acetaminophen [Mapap Arthritis Pain] 650 mg Tablet Extended Release 650 mg PO BID RF: 0 ondansetron HCl [Zofran] 4 mg tablet 4 mg PO Q8H PRNQty: 20 RF: 0 levothyroxine 150 mcg tablet 150 mcg PO DAILY RF: 0 docusate sodium 100 mg capsule 100 mg PO BID PRN PRNRF: 0 Trelegy Ellipta 100-62.5-25 mcg blister with device 1 inh INHALATION DAILY RF: 0 Flovent HFA 220 mcg/actuation HFA aerosol inhaler 2 inh INHALATION BID RF: 0 polyethylene glycol 3350 17 gram Powder In Packet 17 g PO BID Qty: 0 RF: 0 aspirin 81 mg tablet,delayed release (DR/EC) 81 mg PO DAILY RF: 0 atorvastatin 80 mg tablet 80 mg PO DAILY RF: 0 Eliquis 5 mg tablet 5 mg PO BID Qty: 71 RF: 0 prednisone 20 mg tablet 60 mg PO DAILY 5 Days Qty: 15 RF: 0 Discharge Instructions Instructions: Contusion in Adults (ED) Additional Instructions: Home to rest today. Tylenol and/or ibuprofen as needed for pain. May use the provided oxycodone if needed for severe or break pain. Continue your regular medications. You may develop slight bruising or increased muscular soreness over the next 12 hours. Return to the ER for any acute concerns. Medical Decision Making 76-year-old female presents from home via EMS. She has a history of vertigo and uses a cane. She got out of bed to use the bathroom without her cane, felt dizzy and fell backward on the floor. She was able to get back into bed and call EMS. She denies loss of consciousness. She now complains of right shoulder and low back pain. No weakness or numbness of the extremity. On exam patient has some mild tenderness overlying the affected areas. She is given oral analgesia and referred for CT imaging with plain radiographs. CT head no acute intracranial findings; C-spine no acute findings; CT chest/abdomen no evidence of acute trauma, note of cholelithiasis; CT thoracic and lumbar spine no fracture; right shoulder x-ray no acute findings. Patient improved, able to transfer on her own without difficulty. She does have some ongoing discomfort and will offer small number of analgesics for home. Patient stable and improved. HPI General Mode of arrival: EMS. Date/Time Provider Initiated Documentation: 09/19/21 01:26. Limitations to Documentation: no limitations. Information obtained by: patient and EMS. History of Present Illness 76 year old F presents to the emergency department with the chief complaint of Fall at home, back pain and right shoulder pain, described as moderate, Quality is described as dull and constant, and is localized to the back, right and upper extremity. Patient reports no radiation. Patient started experiencing this minute(s) and it has been constant. No relieving factors improve symptom(s), Movement worsens symptoms . Patient notes denies chest pain, headaches, seizure, syncope and weakness. Patient did receive the following treatments prior to arrival, none Related Data Home Medications Medication Instructions Recorded Confirmed aspirin 81 mg PO DAILY 09/22/20 09/19/21 ipratropium-albuterol 3 ml UPD Q4H PRN PRN #180 ml 10/07/20 09/19/21 pantoprazole 40 mg PO DAILY@0730 #30 tab 10/07/20 09/19/21 sennosides [Senokot] 8.6 mg PO BID #60 tab 10/07/20 09/19/21 acetaminophen [Mapap Arthritis 650 mg PO BID 01/01/21 09/19/21 Pain] atorvastatin 80 mg PO DAILY 06/15/21 09/19/21 Eliquis 5 mg PO BID #71 tab 06/16/21 09/19/21 ondansetron HCl [Zofran] 4 mg PO Q8H PRN #20 tab 07/23/21 09/19/21 Flovent HFA 2 inh INHALATION BID 08/30/21 09/19/21 Trelegy Ellipta 1 inh INHALATION DAILY 08/30/21 09/19/21 docusate sodium 100 mg PO BID PRN PRN 08/30/21 09/19/21 levothyroxine 150 mcg PO DAILY 08/30/21 09/19/21 polyethylene glycol 3350 17 g PO BID #0 ea 09/05/21 09/19/21 prednisone 60 mg PO DAILY 5 Days #15 tab 09/16/21 09/19/21 Previous Rx's Medication Instructions Recorded ipratropium-albuterol 3 ml UPD Q4H PRN PRN #180 ml 10/07/20 pantoprazole 40 mg PO DAILY@0730 #30 tab 10/07/20 sennosides [Senokot] 8.6 mg PO BID #60 tab 10/07/20 Eliquis 5 mg PO BID #71 tab 06/16/21 ondansetron HCl [Zofran] 4 mg PO Q8H PRN #20 tab 07/23/21 polyethylene glycol 3350 17 g PO BID #0 ea 09/05/21 prednisone 60 mg PO DAILY 5 Days #15 tab 09/16/21 Allergies Allergy/AdvReac Type Severity Reaction Status Date / Time Penicillins Allergy Intermediate Swelling/Ed Verified 09/19/21 01:34 demond Bees Allergy Uncoded 09/19/21 01:34 General Stated Complaint: [facility]Medical KAYA: 3 Review of Systems Narrative: 6 systems reviewed and otherwise negative. [facility] Medical History Aneurysm of infrarenal abdominal aorta Cholelithiasis CKD (chronic kidney disease) stage 3, GFR 30-59 ml/min COPD (chronic obstructive pulmonary disease) Diverticulosis Failure to thrive in adult Fracture of both ankles Hallucinations Hearing loss History of blood transfusion Hx of diabetes mellitus Hx of hyperlipidemia Hypertension Hypothyroidism Low back pain Memory impairment Non-insulin dependent diabetes mellitus Noncompliance with medication regimen Obesity Osteoarthritis of right knee Pain, joint, knee, right Seborrheic keratosis Smoker Urinary tract infection Surgical History History of bilateral tubal ligation History of hernia repair Family History Father Diabetes Social History Smoking/Tobacco Use Status: Current every day Tobacco Type: cigarettes Years smoked: 15 Tobacco: How many years used: 15 Counseling given: provider counseling and support medications Smoking risk assessment performed?: Yes Alcohol Intake: never Drug use: Never Substance use type: does not use Household members: none Housing: apartment Number of Children: 3 number of grandchildren: 1 What is your relationship status?: Panel score (0-1 are the most socially isolated patients): 0 What type of physical activity do you participate in: walking Seatbelt use: always Do you feel safe at home: Yes Do you feel safe in your relationship?: Yes Exam Narrative Exam Narrative: GEN: awake, alert, oriented 3. Pleasant, well groomed, interactive. HEAD: Normocephalic, atraumatic ENT: Mucous membranes moist, oropharynx unremarkable, External ear exam unremarkable EYES: PERRL, EOMI NECK: Full ROM, no AI, no menigismus no posterior step-off or deformity CHEST/RESP: Minimal right anterior chest wall tenderness, no crepitus, bilateral end expiratory wheeze present CARDIOVASCULAR: Distant, RRR, no murmur, rub davey. 2+ Rad pulse bilateral ABDOMEN: Soft, nontender, no mass. +Bowel sounds Back: Lower thoracic and lumbar tenderness to palpation, did not appreciate 8 step-off or deformity EXT: Full ROM, no edema, no rash. Mild tenderness right shoulder. Neuro: Grossly normal neurologic exam, conversant, interactive. Psych: Speech fluent, thoughts congruent, affect normal Course Vital Signs Vital signs: Vital Signs Temperature 36.5 C 09/19/21 01:26 Pulse 90 09/19/21 01:26 Respiratory Rate 18 09/19/21 01:26 Blood Pressure 153/71 H 09/19/21 01:26 Pulse Oximetry 94 09/19/21 01:26 Temperature 36.5 C 09/19/21 01:26 Temperature Source Skin 09/19/21 01:26 Pulse 90 09/19/21 01:26 Respiratory Rate 18 09/19/21 01:26 Respiratory Effort Non-Labored 09/19/21 01:39 Respiratory Depth Normal 09/19/21 01:39 Respiratory Pattern Normal 09/19/21 01:39 Blood Pressure 153/71 H 09/19/21 01:26 Pulse Oximetry 94 09/19/21 01:26 Oxygen Delivery Method Room Air 09/19/21 01:26 Oxygen Flow Rate 0 09/19/21 01:26 Pain Level 9 09/19/21 01:26
--- NOTE | 2021-09-19 02:00 | DI.CT_ITS ---
Exam(s) CT CHEST/ABD/PEL WO CT THORACIC LUMBAR SPINE REC EXAM: CT CHEST/ABD/PEL WO TECHNIQUE: CT examination of the chest, abdomen, and pelvis was performed without contrast administr ation. 3D reconstructed images were created and interpreted. Additional 3D reconstructions of thoracic and lumbar spine were obtained. COMPARISON: CT CT CHEST PE CTA from 09/16/[address] THORACIC LUMBAR SPINE REC from 09/19/[address] THORACIC LUMBAR SPINE REC from 09/19/2021 FINDINGS: There is no evidence of a thoracic vascular injury by noncontrast criteria.. The lungs are clear ma rked pulmonary emphysematous changes.. No pneumothorax or pleural effusion. No mediastinal hematoma. No adenopathy in the chest. Tracheobronchial tree appears intact. The liver, spleen, and pancreas appear normal. Note is made of cholelithiasis. Bile ducts are nithya l. Adrenals and kidneys are unremarkable. No evidence of urinary tract injury or obstruction. No abdominal or pelvic vascular injury seen. No abdominal or pelvic adenopathy. There is ventral her kena of the lower abdominal wall.. No evidence of bowel injury. No fracture identified in the region surveyed. CT reconstructions of thoracic and lumbar spine are u nremarkable except for mild degenerative changes. IMPRESSION: No evidence of acute injury of the chest, abdomen, or pelvis. RADIATION DOSE DELIVERED: Total DLP Total DLP CTDIvol DATA REPOSITORY: All CT scans at this facility are submitted to the National Radiology Data Registry (NRDR) Dose Index Registry (DIR) with the [employer] (ACR). RADIATION OPTIMIZATION: All CT scans at this facility use at least one of these dose optimization te chniques: automated exposure control; mA and/or kV adjustment per patient size (includes targeted exa ms where dose is matched to clinical indication); or iterative reconstruction.
[2021-09-19] MEDS: oxyCODONE 5 mg/Acetaminophen 325 mg TAB 1 TAB PO (02:05)
[2021-09-19 03:15] VITALS: BP 141/68; PULSE 74; RESP 14; O2SAT 94
--- NOTE | 2021-09-19 03:43 | DI.VRAD_ITS ---
PROCEDURE INFORMATION: Exam: CT Chest Without Contrast; Diagnostic Exam date and time: 09/19/2021 2:02 AM Age: 76 years old Clinical indication: Injury or trauma; Generalized; Blunt trauma (contusions or hematomas); Injury date: 09/18/21; Injury details: Fall, back pain TECHNIQUE: Imaging protocol: Diagnostic computed tomography of the chest without contrast. 3D rendering (Not supervised by radiologist): MIP and/or 3D reconstructed images were created by the technologist. Radiation optimization: All CT scans at this facility use at least one of these dose optimization techniques: automated exposure control; mA and/or kV adjustment per patient size (includes targeted exams where dose is matched to clinical indication); or iterative reconstruction. COMPARISON: CT ABDOMEN PELVIS W 07/22/2021 9:29 PM FINDINGS: Lungs: Small atelectasis in the right lower lobe Pleural spaces: Unremarkable. No pneumothorax. No pleural effusion. Heart: No pericardial effusion. Aorta: No acute findings. Lymph nodes: No enlarged lymph nodes. Bones/joints: No acute fracture. Soft tissues: No acute findings. Other findings: Periodontal/dental disease IMPRESSION: No evidence for acute trauma in the chest. PROCEDURE INFORMATION: Exam: CT Abdomen And Pelvis Without Contrast Exam date and time: 09/19/2021 2:02 AM Age: 76 years old Clinical indication: Injury or trauma; Generalized; Blunt trauma (contusions or hematomas); Injury date: 09/18/21; Injury details: Fall, back pain TECHNIQUE: Imaging protocol: Computed tomography of the abdomen and pelvis without contrast. 3D rendering (Not supervised by radiologist): MIP and/or 3D reconstructed images were created by the technologist. Radiation optimization: All CT scans at this facility use at least one of these dose optimization techniques: automated exposure control; mA and/or kV adjustment per patient size (includes targeted exams where dose is matched to clinical indication); or iterative reconstruction. COMPARISON: CT ABDOMEN PELVIS W 07/22/2021 9:29 PM FINDINGS: Liver: No acute abnormality. Gallbladder and bile ducts: Small gallstones again noted. Pancreas: No ductal dilation. Spleen: No acute abnormality. Adrenal glands: Normal. No mass. Kidneys and ureters: No ureter or obstructing renal stones. No hydronephrosis. Stomach and bowel: Laxity of the anterior abdominal wall and hernia containing a knuckle of small bowel on the left inferiorly, no evidence for bowel obstruction. Appendix: No evidence of appendicitis. Intraperitoneal space: No free air. No significant fluid collection. Vasculature: No abdominal aortic aneurysm. Lymph nodes: No enlarged lymph nodes. Urinary bladder: Unremarkable as visualized. Reproductive: No acute findings. Bones/joints: No acute fracture. Soft tissues: No acute findings. IMPRESSION: 1. No evidence for acute trauma in the abdomen and pelvis in this unenhanced exam. 2. Cholelithiasis Dictated and Authenticated by: Papo Fuentes MD. Ordering:IRAIS Fletcher MD
--- NOTE | 2021-09-19 03:49 | DI.VRAD_ITS ---
PROCEDURE INFORMATION: Exam: CT Head Without Contrast Exam date and time: 09/19/2021 1:52 AM Age: 76 years old Clinical indication: Injury or trauma; Blunt trauma (contusions or hematomas); Consciousness not specified; Injury date: 09/19/21; Injury details: Fall, back pain TECHNIQUE: Imaging protocol: Computed tomography of the head without contrast. Radiation optimization: All CT scans at this facility use at least one of these dose optimization techniques: automated exposure control; mA and/or kV adjustment per patient size (includes targeted exams where dose is matched to clinical indication); or iterative reconstruction. COMPARISON: CT HEAD CERVICAL SPINE WO 09/07/2021 7:50 PM FINDINGS: There are periventricular white matter lucencies compatible with chronic microvascular ischemic disease. There is no intracranial hemorrhage. No mass effect or midline shift. The ventricles and sulci are prominent compatible with age-related involutional changes. The calvarium is intact. There are postsurgical changes of the right maxillary sinus with chronic mucoperiosteal thickening. No mastoid effusion. IMPRESSION: No acute intracranial findings. PROCEDURE INFORMATION: Exam: CT Cervical Spine Without Contrast Exam date and time: 09/19/2021 1:52 AM Age: 76 years old Clinical indication: Injury or trauma; Blunt trauma (contusions or hematomas); Consciousness not specified; Injury date: 09/19/21; Injury details: Fall, back pain TECHNIQUE: Imaging protocol: Computed tomography images of the cervical spine without contrast. Radiation optimization: All CT scans at this facility use at least one of these dose optimization techniques: automated exposure control; mA and/or kV adjustment per patient size (includes targeted exams where dose is matched to clinical indication); or iterative reconstruction. COMPARISON: CT HEAD CERVICAL SPINE WO 09/07/2021 7:50 PM FINDINGS: The alignment of the cervical spine is unremarkable. No acute fracture or subluxation. There is multilevel degenerative disc disease and facet arthritis. The pre-vertebral soft tissues are within normal limits. The visualized lung apices are clear. IMPRESSION: No acute findings. Dictated and Authenticated by: Alf Noland MD. Ordering:IRAIS Fletcher MD
--- NOTE | 2021-09-19 03:57 | DI.VRAD_ITS ---
PROCEDURE INFORMATION: Exam: CT Thoracic Spine Without Contrast Exam date and time: 09/19/2021 2:05 AM Age: 76 years old Clinical indication: Injury or trauma; Blunt trauma (contusions or hematomas); Injury date: 09/19/21; Injury details: Fall, back pain TECHNIQUE: Imaging protocol: Computed tomography images of the thoracic spine without contrast. Reformatted images were created and reviewed. Radiation optimization: All CT scans at this facility use at least one of these dose optimization techniques: automated exposure control; mA and/or kV adjustment per patient size (includes targeted exams where dose is matched to clinical indication); or iterative reconstruction. COMPARISON: CT LUMBAR SPINE WO 09/07/2021 7:50 PM FINDINGS: Vertebrae: No thoracic spine fracture. Discs/Spinal canal/Neural foramina: No acute abnormality. Moderate to large osteophytes at multiple levels Soft tissues: No acute findings. IMPRESSION: No thoracic spine fracture. PROCEDURE INFORMATION: Exam: CT Lumbar Spine Without Contrast Exam date and time: 09/19/2021 2:05 AM Age: 76 years old Clinical indication: Injury or trauma; Blunt trauma (contusions or hematomas); Injury date: 09/19/21; Injury details: Fall, back pain TECHNIQUE: Imaging protocol: Computed tomography images of the lumbar spine without contrast. Reformatted images were created and reviewed. Radiation optimization: All CT scans at this facility use at least one of these dose optimization techniques: automated exposure control; mA and/or kV adjustment per patient size (includes targeted exams where dose is matched to clinical indication); or iterative reconstruction. COMPARISON: CT LUMBAR SPINE WO 09/07/2021 7:50 PM FINDINGS: Vertebrae: No acute fracture. Discs/Spinal canal/Neural foramina: No acute findings. Small to moderate osteophytes at multiple levels. Vacuum discs at L4-L5 and L5-S1 Soft tissues: Unremarkable. IMPRESSION: No lumbar spine fracture. Dictated and Authenticated by: Papo Fuentes MD. Ordering:IRAIS Fletcher MD
--- NOTE | 2021-09-19 04:10 | DI.VRAD_ITS ---
PROCEDURE INFORMATION: Exam: XR Right Shoulder Exam date and time: 09/19/2021 1:52 AM Age: 76 years old Clinical indication: Injury or trauma; Blunt trauma (contusions or hematomas); Right; Injury date: 09/19/21; Injury details: Fall, R shoulder pain TECHNIQUE: Imaging protocol: XR Right shoulder. Views: 2 or more views. COMPARISON: CR XR SHOULDER RT COMPLETE 2+V 08/31/2020 2:08 PM FINDINGS: Bones/joints: No acute fracture. No dislocation. Osteophytes at the AC joint again noted Soft tissues: No acute findings. IMPRESSION: No acute findings. Dictated and Authenticated by: Papo Fuentes MD. Ordering:IRAIS Fletcher MD
== END 2021-09-19 05:09 | disposition home or self-care (01) ==
LOC: ER 05:12
PROVIDERS: Emergency Provider Emergency Medicine; PCP Nurse Practitioner
DX: S40.011A Contusion of right shoulder, initial encounter (principal); S30.0XXA Contusion of lower back and pelvis, initial encounter; S09.8XXA Other specified injuries of head, initial encounter; W18.39XA Other fall on same level, initial encounter
CPT/HCPCS: 71250; 99285; 70450; 72125; 73030; 74176; 99284

== ENCOUNTER 2021-10-13 20:58 | Inpatient (IN) | payer OTHER, MEDICAID, SELFPAY ==
[2021-10-13] VITALS (17 sets, daily range): BP systolic 114–145; BP diastolic 59–72; PULSE 91–98; RESP 18; TEMP 36.7; O2SAT 84–100
--- NOTE | 2021-10-13 20:45 | RT.EKG_ITS ---
APPROVED REPORT Exam: Resting ECG Reason for Exam: sob Patient Location: E HR:87 bpm ECG Measurements Heart Rate 87 AXIS ID 142 P 94 QRSd 85 QRS -46 QT 370 T 61 QTc 445 Conclusion Sinus rhythm...normal P axis, V-rate 60- 99 LAD, consider left anterior fascicular block...axis(240,-40), S>R II III aVF Probable lateral infarct, old...Q>35mS, abnormal ST-T, V5-6 I aVL There are no significant changes compared to prior EKG performed on 09/16/2021 at 10:20.
--- NOTE | 2021-10-13 21:00 | DI.RAD_ITS ---
Exam(s) XR CHEST 2V PA LATERAL EXAM: XR CHEST 2V PA LATERAL CLINICAL HISTORY: SOB. TECHNIQUE: 2D digital imaging was performed. COMPARISON: CR,XR XR PORTABLE CHEST AP from 08/30/[address] CHEST PE CTA from 09/16/2021 FINDINGS: Heart size is normal. The mediastinum is not widened. Lungs are clear. No infiltrates nor pleural effusions. IMPRESSION: No acute pulmonary findings. DATA REPOSITORY: RADIATION DOSE DELIVERED:
--- NOTE | 2021-10-13 21:07 | ED.GENADUL_ITS ---
Discharge Plan Disposition Patient Disposition: [facility] INPATIENT Condition: Poor Discharge Details Clinical Impression: Pneumonia, COPD (chronic obstructive pulmonary disease) Primary Care Provider: Kathleen Azevedo ED Provider: Richard Verdugo [facility] Meds and New Rx's Prescriptions: No Action ipratropium-albuterol 0.5 mg-3 mg(2.5 mg base)/3 mL Solution For Nebulization 3 ml UPD Q4H PRN PRN (Reason: shortness of breath or wheezing) Qty: 180 RF: 0 pantoprazole 40 mg Tablet,Delayed Release (Dr/Ec) 40 mg PO DAILY@0730 Qty: 30 RF: 0 sennosides [Senokot] 8.6 mg Tablet 8.6 mg PO BID Qty: 60 RF: 0 acetaminophen [Mapap Arthritis Pain] 650 mg Tablet Extended Release 650 mg PO BID RF: 0 ondansetron HCl [Zofran] 4 mg tablet 4 mg PO Q8H PRNQty: 20 RF: 0 levothyroxine 150 mcg tablet 150 mcg PO DAILY RF: 0 docusate sodium 100 mg capsule 100 mg PO BID PRN PRNRF: 0 Trelegy Ellipta 100-62.5-25 mcg blister with device 1 inh INHALATION DAILY RF: 0 Flovent HFA 220 mcg/actuation HFA aerosol inhaler 2 inh INHALATION BID RF: 0 polyethylene glycol 3350 17 gram Powder In Packet 17 g PO BID Qty: 0 RF: 0 aspirin 81 mg tablet,delayed release (DR/EC) 81 mg PO DAILY RF: 0 atorvastatin 80 mg tablet 80 mg PO DAILY RF: 0 Eliquis 5 mg tablet 5 mg PO BID Qty: 71 RF: 0 Medical Decision Making Patient presenting with shortness of breath that she reports started tonight. Does report mild URI symptoms this morning. Denies pain. Does have diminished breath sounds with some wheezing. Will place IV to get labs, check chest x-ray and EKG, give nebs and steroids and reevaluate. Should note she does have history of PE which she was discovered accidentally this summer after being scanned for abdominal pain. She is on Eliquis. She does appear to have swelling more so in the right lower extremity than last. She reports that her medications are given to her and she has not missed any doses. Patient initial work-up is unremarkable. White count is normal. Kidney function baseline. First troponin negative. EKG unchanged from previous. Chest x-ray unremarkable. Patient reports feeling better after the neb treatments. Patient noted to have oxygen saturations between 88 and 92% at rest. She is not on oxygen at home. She was given a third neb. Repeat EKG and troponin remain unchanged. At rest she states she feels okay. We ambulated her in the department and she became dyspneic and desaturated all the way down into the low 80s. Because of the as well as prior history of PE despite being on Eliquis we will go ahead and get CTA of chest. Will need admission regardless due to hypoxemia. There is no PE on scan. She does have emphysema as well as evidence of pneumo kena predominantly in the right lower lobe. She has had previous inpatient and outpatient management of COPD and pneumonia in the last 3 months requiring antibiotics and steroids. As such she will be covered with ceftazidime, levofloxacin, vancomycin initially. Case discussed with hospitalist for admission. Medical Records Medical records reviewed: Yes I reviewed the patient's medical records. Lab Data Lab results reviewed: Yes I reviewed the patient's lab results. ECG Data Attestation: I personally reviewed and interpreted this ECG (s) as follows: Prior ECG tracings: available for review Interpretation: see EKG HPI General Mode of arrival: EMS . Date/Time Provider Initiated Documentation: 10/13/21 21:06 . Limitations to Documentation: no limitations . Information obtained by: patient, RN notes reviewed and old records reviewed . HPI Narrative: Patient presents to ED by ambulance with complaint of shortness of breath. Patient reports developing shortness of breath a couple of hours prior to arrival. She does report runny nose and slight cough as of this morning. She did not feel any more short of breath than usual until this evening. She denies having fever. She denies having any chest pain or pressure. She reports having a little bit of emesis tonight but denies nausea or abdominal pain. She did use her rescue inhaler which she felt did help some. She is not on oxygen at home. She does have history of COPD as well as history of PE for which she is on Eliquis. She has been vaccinated against Covid. She is not sure about flu. Related Data Home Medications Medication Instructions Recorded Confirmed aspirin 81 mg PO DAILY 09/22/20 10/13/21 ipratropium-albuterol 3 ml UPD Q4H PRN PRN #180 ml 10/07/20 10/13/21 pantoprazole 40 mg PO DAILY@0730 #30 tab 10/07/20 10/13/21 sennosides [Senokot] 8.6 mg PO BID #60 tab 10/07/20 10/13/21 acetaminophen [Mapap Arthritis 650 mg PO BID 01/01/21 10/13/21 Pain] atorvastatin 80 mg PO DAILY 06/15/21 10/13/21 Eliquis 5 mg PO BID #71 tab 06/16/21 10/13/21 ondansetron HCl [Zofran] 4 mg PO Q8H PRN #20 tab 07/23/21 10/13/21 Flovent HFA 2 inh INHALATION BID 08/30/21 10/13/21 Trelegy Ellipta 1 inh INHALATION DAILY 08/30/21 10/13/21 docusate sodium 100 mg PO BID PRN PRN 08/30/21 10/13/21 levothyroxine 150 mcg PO DAILY 08/30/21 10/13/21 polyethylene glycol 3350 17 g PO BID #0 ea 09/05/21 10/13/21 Previous Rx's Medication Instructions Recorded ipratropium-albuterol 3 ml UPD Q4H PRN PRN #180 ml 10/07/20 pantoprazole 40 mg PO DAILY@0730 #30 tab 10/07/20 sennosides [Senokot] 8.6 mg PO BID #60 tab 10/07/20 Eliquis 5 mg PO BID #71 tab 06/16/21 ondansetron HCl [Zofran] 4 mg PO Q8H PRN #20 tab 07/23/21 polyethylene glycol 3350 17 g PO BID #0 ea 09/05/21 Allergies Allergy/AdvReac Type Severity Reaction Status Date / Time Penicillins Allergy Intermediate Swelling/Ed Verified 09/19/21 01:34 demond Bees Allergy Uncoded 09/19/21 01:34 General Stated Complaint: SOB KAYA: 3 Review of Systems Narrative: 08/31 Review of Systems completed and is negative except as stated above in HPI (Systems reviewed: Const, Eyes, ENT, Resp, CV, GI, , MSK, Skin, Neuro) PFSH Active Problem List Low back pain (Acute) Noncompliance with medication regimen (Acute) Pain, joint, knee, right (Acute) Fall (Acute) Blunt head trauma (Acute) Blunt injury of back (Acute) COPD exacerbation (Acute) Fall (Acute) Contusion (Acute) Auditory hallucination (Acute) Fall (Acute) Acute exacerbation of chronic obstructive pulmonary disease (COPD) (Acute) Hallucinations (Chronic) Discharge planning issues (Acute) DVT prophylaxis (Acute) Community acquired pneumonia (Acute) Abdominal pain (Acute) Asthma exacerbation (Acute) Vertigo (Acute) Diverticulosis (Chronic) Cholelithiasis (Chronic) Nausea vomiting and diarrhea (Acute) Unsteady gait when walking (Acute) Constipation (Chronic) Memory impairment (Chronic) 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) Osteoarthritis of right knee (Chronic) Medical History Aneurysm of infrarenal abdominal aorta CKD (chronic kidney disease) stage 3, GFR 30-59 ml/min COPD (chronic obstructive pulmonary disease) Failure to thrive in adult Fracture of both ankles Hearing loss History of blood transfusion Hx of hyperlipidemia Hypertension Hypothyroidism Non-insulin dependent diabetes mellitus Obesity Pulmonary embolism Seborrheic keratosis Smoker Surgical History History of bilateral tubal ligation History of hernia repair Family History Father Diabetes Social History Smoking/Tobacco Use Status: Current every day Tobacco Type: cigarettes Years smoked: 15 Tobacco: How many years used: 15 Counseling given: provider counseling and support medications Smoking risk assessment performed?: Yes Alcohol Intake: never Drug use: Never Substance use type: does not use Household members: none Housing: apartment Number of Children: 3 number of grandchildren: 1 What is your relationship status?: Panel score (0-1 are the most socially isolated patients): 0 What type of physical activity do you participate in: walking Seatbelt use: always Do you feel safe at home: Yes Do you feel safe in your relationship?: Yes Exam Narrative Exam Narrative: Const: Obese elderly female in NAD. HEENT: NC/AT. Normal facial exam. Eyes: Normal conjunctiva and sclera. Neck: Supple. Trachea midline. Lungs: Normal respiratory effort. Lungs are diminished with some wheeze. Cor: RRR without murmur/gallop. Good radial pulses. GI: Soft. NT/ND. No guarding or rebound. Neuro: A+O x 3. Normal speech, mentation, gait. Cranial nerves II - XII grossly intact. No gross motor or sensory deficit. Ext: No C/C. LLE appears somewhat swollen and edematous more so than RLE. Skin: Warm and dry without rash. Course Vital Signs Vital signs: Vital Signs Temperature 98.1 F 10/13/21 20:58 Pulse 92 H 10/13/21 20:58 Respiratory Rate 18 10/13/21 20:58 Blood Pressure 145/72 H 10/13/21 20:58 Pulse Oximetry 93 10/13/21 20:58 Temperature 98.1 F 10/13/21 20:58 Temperature Source Tympanic 10/13/21 20:58 Pulse 92 H 10/13/21 20:58 Respiratory Rate 18 10/13/21 20:58 Respiratory Effort 10/13/21 21:02 Respiratory Depth Normal 10/13/21 21:02 Respiratory Pattern Normal 10/13/21 21:02 Blood Pressure 145/72 H 10/13/21 20:58 Blood Pressure Position Supine 10/13/21 20:58 Pulse Oximetry 93 10/13/21 20:58 Oxygen Delivery Method Room Air 10/13/21 20:58 Oxygen Flow Rate 0 10/13/21 20:58 Pain Level 0 10/13/21 20:58
[2021-10-13] MEDS: predniSONE 20 MG TAB 60 MG PO (21:31)
[2021-10-13] MEDS: Albuterol 2.5 MG/3 ML INH SOLN VIAL UPD ×2 (21:31→23:18)
[2021-10-13] MEDS: Albuterol/Ipratropium 3 ML UPD VIAL UPD (21:31)
[2021-10-13 21:50] LABS: Abs Immature Grans 0.02 10^3/uL (0.0-0.06); Absolute Basophil Count 0.02 10^3/uL (0.0-0.2); Absolute Lymphocyte Count 1.02 10^3/uL (1.2-3.4); Absolute Monocyte Count 0.43 10^3/uL (0.1-0.8); Absolute Neutrophil Count 5.33 10^3/uL (1.2-6.7); Basophils % 0.3; Eosinophils % 1.4; HGB 12.1 g/dL (11.2-15.7); Immature Grans % 0.3; Lymphocytes % 14.7; MCH 27.6 pg (27.0-33.0); MCHC 30.3 % (32.0-36.0); MCV 91.1 fL (80-95); MPV 10.5 fL (8.0-11.0); Monocytes % 6.2; Neutrophils % 77.1; Nucleated RBC 0 %; Platelet Count 217 10^3/uL (130-400); RBC 4.39 10^6/uL (3.93-5.22); RDW 14.6 % (11.7-14.6); RDW-SD 49.2 fL; WBC 6.92 10^3/uL (4.4-10.8)
[2021-10-13 22:03] LABS: ALT 22 U/L (14-59); AST 16 U/L (15-37); Albumin 2.9 g/dL (3.4-5.0); Alkaline Phosphatase 132 U/L (46-116); Anion Gap 4.9 mmol/L (3-11); BUN 30 mg/dL (7-18); Bilirubin, Total 0.3 mg/dL (0.2-1.0); CO2 32.1 mmol/L (21.0-32.0); CREATININE 1.1 mg/dL (0.55-1.02); Calcium 8.9 mg/dL (8.5-10.1); Chloride 102 mmol/L (98-107); Estimated GFR 48.55 (mL/min/1.73m2); Glucose 117 mg/dL (74-106); Magnesium 2.1 mg/dL (1.8-2.4); Potassium 3.8 mmol/L (3.5-5.1); Sodium 139 mmol/L (136-145); Total Protein 7.7 g/dL (6.4-8.2)
[2021-10-13 22:04] LABS: Troponin I < 0.05 ng/mL (<0.06)
--- NOTE | 2021-10-13 22:33 | DI.VRAD_ITS ---
PROCEDURE INFORMATION: Exam: XR Chest Exam date and time: 10/13/2021 9:09 PM Age: 76 years old Clinical indication: Other: SOB TECHNIQUE: Imaging protocol: XR of the chest. Views: 2 views. COMPARISON: CT CHEST/ABD/PEL WO 09/19/2021 2:36 AM FINDINGS: Lungs: Unremarkable. No consolidation. Pulmonary vessels are not congested. Pleural spaces: Mild blunting noted in the costophrenic angles and posterior gutters. Negative for pneumothorax. Heart/Mediastinum: Unremarkable. No cardiomegaly. Bones/joints: Unremarkable. IMPRESSION: Mild bilateral pleural effusions or pleuroparenchymal scar. Dictated and Authenticated by: Matthew Vasquez MD. Ordering:KAM Ramos MD
[2021-10-14] VITALS (26 sets, daily range): BP systolic 76–145; BP diastolic 15–101; PULSE 76–99; RESP 16–22; TEMP 35.5–36.5; O2SAT 89–95
--- NOTE | 2021-10-14 00:30 | RT.EKG_ITS ---
APPROVED REPORT Exam: Resting ECG Reason for Exam: SOB Patient Location: E HR:101 bpm ECG Measurements Heart Rate 101 AXIS AL 157 P 73 QRSd 84 QRS -39 QT 370 T 47 QTc 479 Conclusion Sinus tachycardia...rate> 99 Left axis deviation...QRS axis (-30,-90) There are no significant changes compared to prior EKG performed on 10/13/2021 at 21:30.
--- NOTE | 2021-10-14 01:00 | DI.CT_ITS ---
Exam(s) CT CHEST PE CTA EXAM: CT CHEST PE CTA CLINICAL HISTORY: hypoxic/SOB. TECHNIQUE: Imaging Protocol: CT angiography of the chest was performed using pulmonary embolus jacinda col. Multi planar reconstructions were performed. CONTRAST MATERIAL: Intravenous: Omnipaque 350 Contrast volume: 100 cc COMPARISON: CT CT CHEST/ABD/PEL WO from 09/19/2021 FINDINGS: CHEST: Interpretation somewhat limited by respiratory motion artifact. PULMONARY ARTERIES: There are no obvious intraluminal filling defects to suggest acute pulmonary embo li. LUNGS: Mild infiltrate in the right middle lobe and posterior basal segment of the right lower lobe. No pleural effusion. Mild infiltrate also noted in the posterior basal segment of the left lower lo be. No pleural effusion.. MEDIASTINUM: Mild right hilar adenopathy. Milder left hilar adenopathy. Mild subcarinal adenopathy. There is no adenopathy in the anterior mediastinal fat. No axillary adenopathy. CARDIAC: Heart size is upper normal. There is no pericardial effusion.Caliber of the thoracic aorta is within normal limits. There is no significant shift of the interventricular septum. PARTIALLY VISUALIZED UPPERMOST ABDOMEN: No obvious findings OSSEOUS: No significant osseous lesions.. IMPRESSION: 1. No evidence of acute pulmonary emboli. No evidence of pulmonary infarction. 2. There is some infiltrate in the right lower lobe posterior basal segment as well as in the right m iddle lobe. There is mild right hilar adenopathy and mild subcarinal adenopathy.. 3. There are no pleural effusions. RADIATION DOSE DELIVERED: 664.06mGy.cm Total DLP DATA REPOSITORY: All CT scans at this facility are submitted to the National Radiology Data Registry (NRDR) Dose Index Registry (DIR) with the [employer] ([employer]). RADIATION OPTIMIZATION: All CT scans at this facility use at least one of these dose optimization te chniques: automated exposure control; mA and/or kV adjustment per patient size (includes targeted exa ms where dose is matched to clinical indication); or iterative reconstruction.
[2021-10-14 01:28] LABS: Source Nasal/Nares
[2021-10-14 01:49] LABS: Troponin I < 0.05 ng/mL (<0.06)
[2021-10-14] MEDS: Omnipaque 350 MG/ML 100 ML BTL IJ (02:13)
--- NOTE | 2021-10-14 02:20 | DI.VRAD_ITS ---
PROCEDURE INFORMATION: Exam: CTA Chest With Contrast Exam date and time: 10/14/2021 1:09 AM Age: 76 years old Clinical indication: Other: Hypoxic/sob; Patient HX: Prior pe TECHNIQUE: Imaging protocol: Computed tomographic angiography of the chest with contrast. 3D rendering (Not supervised by radiologist): MIP and/or 3D reconstructed images were created by the technologist. COMPARISON: CT CHEST PE CTA 09/16/2021 11:06 AM FINDINGS: Pulmonary arteries: Normal. No pulmonary emboli. Aorta: Unremarkable. No aortic aneurysm. No aortic dissection. Lungs: Centrilobular emphysema noted, upper lobe predominant. Peribronchial consolidations present in the lower lobes. Peripheral tree-in-bud opacity and patchy areas of consolidation are noted, greatest in the right lower lobe. Pleural spaces: Unremarkable. No pneumothorax. No pleural effusion. Heart: Unremarkable. No cardiomegaly. No pericardial effusion. Lymph nodes: Mild mediastinal and hilar lymphadenopathy. Bones/joints: Thoracic kyphosis is exaggerated. Disc space narrowing and osteophyte formation noted at multiple levels. 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 Negative for compression fracture. Soft tissues: Unremarkable. IMPRESSION: 1. Negative for pulmonary embolism. 2. Centrilobular emphysema. 3. Mild mediastinal lymphadenopathy. 4. Peripheral areas of bronchiolitis and pneumonia, greatest in the right lower lobe. Dictated and Authenticated by: Matthew Vasquez MD. Ordering:KAM Ramos MD
[2021-10-14] MEDS: cefTAZidime 2,000 MG in Normal Saline 100 ML 200 MG IVPB ×2 (02:55→14:29)
[2021-10-14] MEDS: VANCOMYCIN 2,000 MG in Normal Saline 500 ML 333.3333 MG IVPB (04:17)
--- NOTE | 2021-10-14 06:12 | HPE_ITS ---
Date of service: 10/14/21 Time of Service: 06:13 Assessment and Plan Assessment and plan (1) Pneumonia: Start date: 10/13/21 Status: Acute Assessment and plan: This is a 76-year-old lady who had sudden onset of symptoms including dyspnea and mild hypoxemia in the ED which appear to be new. CTA did reveal probable right lower lobe pneumonia. Patient will be admitted with aggressive IV antibiotic therapy because of recent inpatient and hospital encounters with recent pneumonias and antibiotic treatment. She was given Levaquin in the ED and will continue with vancomycin and ceftazidime as well as oral Levaquin. Follow-up imaging and symptoms. Patient is a full code. Qualifiers: Laterality: right Lung location: lower lobe of lung Pneumonia type: due to unspecified organism Qualified Code(s): J18.9 - Pneumonia, unspecified organism (2) Hypoxemia: Start date: 10/13/21 Status: Acute Assessment and plan: Patient is requiring oxygen presently with no long- term use of oxygen at home. This may be weaned prior to discharge after adequ ate treatment of possible pneumonia and more aggressive treatment of possible COPD exacerbation. (3) COPD (chronic obstructive pulmonary disease): Status: Chronic Assessment and plan: Slightly exacerbated and consider IV steroids no this is not been initiated. Continue respiratory care with controllers and rescue inhalers. Qualifiers: COPD type: emphysema Emphysema type: centrilobular Qualified Code(s): J43.2 - Centrilobular emphysema History of Present Illness History of Present Illness Chief Complaint: Sudden onset dyspnea worse than baseline with COPD Narrative: This is a 76-year-old female patient who has a history of COPD and had upper respiratory symptoms with increasing dyspnea hours prior to presentation. She denied any chest pain but has had a slight cough without hemoptysis or productive sputum. She does have a total body aches which is chronic. She did have production of emesis with no nausea or other GI symptoms and no complaints of abdominal pain prior to admission. She used her usual rescue inhaler which were not helpful and reported to the ED for evaluation. Patient does have a history of pulmonary embolus and is on Eliquis. She is COVID-19 vaccinated and is not sure about the flu vaccine. She denies any fever or chills. Patient is a fair historian. She does live at home. In the ED CTA was done to rule out PE despite being on Eliquis and the patient did reveal possible right lower lobe pneumonia for which she was started on antibiotic therapy. This was expanded to possible hospital-acquired pneumonia the patient in the hospital setting recently with treatment of a pneumonia within the last 3 months. Review of Systems Narrative: Patient does complain of total body aches which is chronic and un changed with acute illness. 13 point review of systems otherwise unrevealing or stable. Patient is overweight. [facility] Active Problem List Pneumonia (Acute) COPD (chronic obstructive pulmonary disease) (Chronic) Low back pain (Acute) Noncompliance with medication regimen (Acute) Pain, joint, knee, right (Acute) Fall (Acute) Blunt head trauma (Acute) Blunt injury of back (Acute) COPD exacerbation (Acute) Fall (Acute) Contusion (Acute) Auditory hallucination (Acute) Fall (Acute) Acute exacerbation of chronic obstructive pulmonary disease (COPD) (Acute) Hallucinations (Chronic) Discharge planning issues (Acute) DVT prophylaxis (Acute) Community acquired pneumonia (Acute) Abdominal pain (Acute) Asthma exacerbation (Acute) Vertigo (Acute) Diverticulosis (Chronic) Cholelithiasis (Chronic) Nausea vomiting and diarrhea (Acute) Unsteady gait when walking (Acute) Constipation (Chronic) Memory impairment (Chronic) 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) Osteoarthritis of right knee (Chronic) Medical History Aneurysm of infrarenal abdominal aorta CKD (chronic kidney disease) stage 3, GFR 30-59 ml/min COPD (chronic obstructive pulmonary disease) Failure to thrive in adult Fracture of both ankles Hearing loss History of blood transfusion Hx of hyperlipidemia Hypertension Hypothyroidism Non-insulin dependent diabetes mellitus Obesity Pulmonary embolism Seborrheic keratosis Smoker Surgical History History of bilateral tubal ligation History of hernia repair Family History Father Diabetes Social History Smoking/Tobacco Use Status: Current every day Tobacco Type: cigarettes Years smoked: 15 Tobacco: How many years used: 15 Counseling given: provider counseling and support medications Smoking risk assessment performed?: Yes Alcohol Intake: never Drug use: Never Substance use type: does not use Household members: none Housing: apartment Number of Children: 3 number of grandchildren: 1 What is your relationship status?: Panel score (0-1 are the most socially isolated patients): 0 What type of physical activity do you participate in: walking Seatbelt use: always Do you feel safe at home: Yes Do you feel safe in your relationship?: Yes Meds Allergies and Home Medications Allergies Allergy/AdvReac Type Severity Reaction Status Date / Time Penicillins Allergy Intermediate Swelling/Ed Verified 09/19/21 01:34 demond Bees Allergy Uncoded 09/19/21 01:34 Home Medications Medication Instructions Recorded Confirmed Type aspirin 81 mg PO DAILY 09/22/20 10/13/21 History ipratropium-albuterol 3 ml UPD Q4H PRN PRN #180 ml 10/07/20 10/13/21 Rx pantoprazole 40 mg PO DAILY@0730 #30 tab 10/07/20 10/13/21 Rx sennosides [Senokot] 8.6 mg PO BID #60 tab 10/07/20 10/13/21 Rx acetaminophen [Mapap Arthritis 650 mg PO BID 01/01/21 10/13/21 History Pain] atorvastatin 80 mg PO DAILY 06/15/21 10/13/21 History Eliquis 5 mg PO BID #71 tab 06/16/21 10/13/21 Rx ondansetron HCl [Zofran] 4 mg PO Q8H PRN #20 tab 07/23/21 10/13/21 Rx Flovent HFA 2 inh INHALATION BID 08/30/21 10/13/21 History Trelegy Ellipta 1 inh INHALATION DAILY 08/30/21 10/13/21 History docusate sodium 100 mg PO BID PRN PRN 08/30/21 10/13/21 History levothyroxine 150 mcg PO DAILY 08/30/21 10/13/21 History polyethylene glycol 3350 17 g PO BID #0 ea 09/05/21 10/13/21 Rx Exam Narrative Exam Narrative: General: Patient is moderately obese, appears older than stated age, alert and oriented x3 but very hard of hearing and a poor historian. She is in no acute distress at rest. HEENT: Normocephalic, coarsened facial features, eyes with pupils equal and reactive to light symmetrically and extraocular movement intact. Oropharynx wi th moist mucosa and fair dentition. Neck: Supple without JVD. Back: Kyphotic without CVA tenderness. Lung: Bronchovesicular breath sounds diffusely with increased expiratory phase and expiratory wheeze diffusely without focalization. Scant inspiratory crackles right lung field without rhonchi. Decreased aeration over the left more than right base. Breast: Exam deferred. Heart: Regular rate and rhythm with no murmurs or gallops appreciated. Abdomen: Obese contour, soft and nontender to palpation without focal guarding though patient is uncomfortable to any palpation over any part of her body. No palpable hepatosplenomegaly. Bowel sounds positive in all quadrants. Genitalia/rectal: Exam deferred. Extremities: Nonpitting edema the patient tender to palpation over legs bilaterally, chronic skin changes with loss of hair but no atrophy or hyperpigmentation. Peripheral pulses grossly intact with good capillary refill. No clubbing or cyanosis. Osteoarthritic changes of all joints with decreased range of motion but no joint swelling. Skin: Normal color, warm and dry. Neuro: Cranial nerves II through XII grossly intact his upper decreased hearing acuity, no focalizing motor deficits. No tremor. Psych: Flattened affect with depressed mood with patient appearing to have chronic pain which affects affect. No abnormal thought processes. Remote and recent memory appear to be grossly intact though patient is a poor historian. Results Imaging Imaging Studies: Exam: CTA Chest With Contrast Exam date and time: 10/14/2021 1:09 AM Age: 76 years old Clinical indication: Other: Hypoxic/sob; Patient HX: Prior pe TECHNIQUE: Imaging protocol: Computed tomographic angiography of the chest with contrast. 3D rendering (Not supervised by radiologist): MIP and/or 3D reconstructed images were created by the technologist. COMPARISON: CT CHEST PE CTA 09/16/2021 11:06 AM FINDINGS: Pulmonary arteries: Normal. No pulmonary emboli. Aorta: Unremarkable. No aortic aneurysm. No aortic dissection. Lungs: Centrilobular emphysema noted, upper lobe predominant. Peribronchial consolidations present in the lower lobes. Peripheral tree-in-bud opacity and patchy areas of consolidation are noted, greatest in the right lower lobe. Pleural spaces: Unremarkable. No pneumothorax. No pleural effusion. Heart: Unremarkable. No cardiomegaly. No pericardial effusion. Lymph nodes: Mild mediastinal and hilar lymphadenopathy. Bones/joints: Thoracic kyphosis is exaggerated. Disc space narrowing and osteophyte formation noted at multiple levels. 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 Negative for compression fracture. Soft tissues: Unremarkable. IMPRESSION: 1. Negative for pulmonary embolism. 2. Centrilobular emphysema. 3. Mild mediastinal lymphadenopathy. 4. Peripheral areas of bronchiolitis and pneumonia, greatest in the right lower lobe. Exam: XR Chest Exam date and time: 10/13/2021 9:09 PM Age: 76 years old Clinical indication: Other: SOB TECHNIQUE: Imaging protocol: XR of the chest. Views: 2 views. COMPARISON: CT CHEST/ABD/PEL WO 09/19/2021 2:36 AM FINDINGS: Lungs: Unremarkable. No consolidation. Pulmonary vessels are not congested. Pleural spaces: Mild blunting noted in the costophrenic angles and posterior gutters. Negative for pneumothorax. Heart/Mediastinum: Unremarkable. No cardiomegaly. Bones/joints: Unremarkable. IMPRESSION: Mild bilateral pleural effusions or pleuroparenchymal scar. Dictated and Authenticated by: Matthew Vasquez MD. Labs Result diagrams: 10/13/21 21:30 10/13/21 21:30 Labs: Laboratory Results - last 24 hr 10/13/21 10/13/21 10/14/21 21:30 21:30 00:08 WBC 6.92 RBC 4.39 Hgb 12.1 Hct 40.0 MCV 91.1 MCH 27.6 MCHC 30.3 L RDW 14.6 Plt Count 217 MPV 10.5 Immature Gran % 0.3 Neutrophils % 77.1 Lymphocytes % 14.7 Monocytes % 6.2 Eosinophils % 1.4 Basophils % 0.3 Nucleated RBC % 0 Absolute Neutrophils 5.33 Absolute Lymphocytes 1.02 L Absolute Monocytes 0.43 Absolute Eosinophils 0.10 Absolute Basophils 0.02 Sodium 139 Potassium 3.8 Chloride 102 Carbon Dioxide 32.1 H Anion Gap 4.9 BUN 30 H Creatinine 1.1 H Estimated GFR/1.73 m2 48.55 Glucose 117 H Calcium 8.9 Magnesium 2.1 Total Bilirubin 0.3 AST 16 ALT 22 Alkaline Phosphatase 132 H Troponin I < 0.05 < 0.05 Total Protein 7.7 Albumin 2.9 L COVID-19 Source 10/14/21 01:22 WBC RBC Hgb Hct MCV MCH MCHC RDW Plt Count MPV Immature Gran % Neutrophils % Lymphocytes % Monocytes % Eosinophils % Basophils % Nucleated RBC % Absolute Neutrophils Absolute Lymphocytes Absolute Monocytes Absolute Eosinophils Absolute Basophils Sodium Potassium Chloride Carbon Dioxide Anion Gap BUN Creatinine Estimated GFR/1.73 m2 Glucose Calcium Magnesium Total Bilirubin AST ALT Alkaline Phosphatase Troponin I Total Protein Albumin COVID-19 Source Nasal/Nares Last Vital Signs Temp 36.5 C 10/14/21 03:52 Pulse 98 H 10/14/21 03:52 Resp 21 10/14/21 03:52 BP 127/67 10/14/21 03:52 Pulse Ox 93 10/14/21 03:52
[2021-10-14] MEDS: levoFLOXacin 500 MG, levoFLOXacin 250 MG 750 MG PO (06:28)
[2021-10-14] MEDS: Apixaban 5 MG TAB PO ×2 (08:06→19:37)
[2021-10-14] MEDS: Levothyroxine 150 MCG TAB PO (08:06)
[2021-10-14] MEDS: Aspirin E.C. 81 MG TABEC PO (08:06)
[2021-10-14] MEDS: Pantoprazole 40 MG TABCR PO (08:06)
--- NOTE | 2021-10-14 08:49 | INITIAL_ITS ---
- If Service Date Differs Date of service: 10/14/21 Time of Service: 08:50 Care Management Initial Assess REASON FOR HOSPITALIZATION:: RLL Penumonia, COPD, Hypoxemia. PAST MEDICAL HISTORY/PAST SURGICAL HISTORY:: Active Problem List: Low back pain (Acute), Noncompliance with medication regimen (Acute), Pain, joint, knee, right (Acute), Fall (Acute),. Blunt head trauma (Acute), Blunt injury of back (Acute), Contusion (Acute), Auditory hallucination (Acute), Acute exacerbation of chronic obstructive pulmonary disease (COPD) (Acute), Hallucinations (Chronic),. Discharge planning issues (Acute), DVT prophylaxis (Acute), Community acquired pneumonia (Acute), Abdominal pain (Acute), Asthma exacerbation (Acute), Vertigo (Acute), Diverticulosis (Chronic), Cholelithiasis (Chronic),. Nausea vomiting and diarrhea (Acute), Unsteady gait when walking (Acute), Constipation (Chronic), Memory impairment (Chronic),. 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 Medical History: Aneurysm of infrarenal abdominal aorta, CKD (chronic kidney disease) stage 3, GFR 30-59 ml/min, COPD (chronic obstructive pulmonary disease), Failure to thrive in adult, Fracture of both ankles,. Hearing loss, History of blood transfusion, Hx of hyperlipidemia, Hypertension, Hypothyroidism, Non-insulin dependent diabetes mellitus,. Obesity, Pulmonary embolism, Seborrheic keratosis, and Smoker. Surgical History: History of bilateral tubal ligation and History of hernia repair. PREVIOUS FUNCTIONAL STATUS/SOCIAL/FAMILY SUPPORTS:: Fabiola lives alone in an apartment in [facility]. She has three sons but 2 of them live out of state. Fabiola reportedly has several friends who live locally who are supportive of her. CURRENT FUNCTIONAL STATUS:: CM is unable to meet with Fabiola in person due to Covid precautions. CM's attempts at reaching her by telephone have been unsuccessful. ADVANCE DIRECTIVES:: None on file. Has patient been provided with info about the portal/API?: No Did the patient sign up for the portal?: No CODE STATUS:: Full Code INSURANCE COVERAGE / FINANCIAL ISSUES:: [facility] [employer] [place] and Medicaid. CURRENT HOME/COMMUNITY SERVICES/EQUIPMENT:: Fabiola has a cane and uses [facility] for transportation. PRIMARY CARE PHYSICIAN:: Kathleen Azevedo NP ([facility]). POTENTIAL DISCHARGE NEEDS:: Follow up with PCP and discharge plan of care. PATIENT/FAMILY EDUCATION NEEDS:: Review of discharge instructions, including limitations, medications, and follow up plan of care; discuss Ask Me Three and self-management. ANTICIPATED BARRIERS TO DISCHARGE:: No anticipated barriers to discharge at this time. TRANSPORTATION:: To be determined based on Covid status. PLAN:: Fabiola will likely be discharged home with no new services when medically cleared by provider. She will follow up with her PCP, community providers, and plan of care as prescribed. Fabiola will be transported home via [facility] vs. ambulance when ready. CM will continue to follow.
[2021-10-14] MEDS: Normal Saline Flush 10 ML SYR IVP ×2 (10:59→19:38)
[2021-10-14] MEDS: predniSONE 20 MG TAB 40 MG PO (10:59)
[2021-10-14 12:27] LABS: Procalcitonin < 0.1 ng/mL
[2021-10-14 13:49] LABS: COVID-19 PCR Positive (Negative)
[2021-10-14] MEDS: Cholecalciferol (Vitamin D3) 1,000 UNIT TAB 2000 UNITS PO (14:27)
[2021-10-14] MEDS: predniSONE 20 MG TAB PO (14:27)
[2021-10-14] MEDS: REMDESIVIR 200 MG in Normal Saline 250 ML 250 MG IVPB (14:58)
--- NOTE | 2021-10-14 15:11 | PGE_ITS ---
Date of Service Date of service: 10/14/21 Time of Service: 14:30 Subjective Subjective Patient reports: other Interval history since last seen: Positive COVID. Patient in denial. Continues to open door, not cooperative, putting other patients and staff at risk. She is requiring oxygen at this point therefore she is not dischargeable. She has been started on MAP, rendesiver, dexamethasone, Vitamin C, D, melatonin. Spoke with instrument maintenance supervisor regarding lack of cooperation. Will speak with AOC about matter Objective Last Vital Signs Temp 36.4 C L 10/14/21 11:23 Pulse 84 10/14/21 11:23 Resp 21 10/14/21 11:23 BP 120/76 10/14/21 11:23 Pulse Ox 93 10/14/21 11:23 Laboratory Results - last 24 hr 10/13/21 10/13/21 10/14/21 21:30 21:30 00:08 WBC 6.92 RBC 4.39 Hgb 12.1 Hct 40.0 MCV 91.1 MCH 27.6 MCHC 30.3 L RDW 14.6 Plt Count 217 MPV 10.5 Immature Gran % 0.3 Neutrophils % 77.1 Lymphocytes % 14.7 Monocytes % 6.2 Eosinophils % 1.4 Basophils % 0.3 Nucleated RBC % 0 Absolute Neutrophils 5.33 Absolute Lymphocytes 1.02 L Absolute Monocytes 0.43 Absolute Eosinophils 0.10 Absolute Basophils 0.02 Sodium 139 Potassium 3.8 Chloride 102 Carbon Dioxide 32.1 H Anion Gap 4.9 BUN 30 H Creatinine 1.1 H Estimated GFR/1.73 m2 48.55 Glucose 117 H Calcium 8.9 Magnesium 2.1 Total Bilirubin 0.3 AST 16 ALT 22 Alkaline Phosphatase 132 H Troponin I < 0.05 < 0.05 Total Protein 7.7 Albumin 2.9 L Procalcitonin COVID-19 Source SARS-CoV-2 (PCR) 10/14/21 10/14/21 10/14/21 01:22 06:21 11:00 WBC RBC Hgb Hct MCV MCH MCHC RDW Plt Count MPV Immature Gran % Neutrophils % Lymphocytes % Monocytes % Eosinophils % Basophils % Nucleated RBC % Absolute Neutrophils Absolute Lymphocytes Absolute Monocytes Absolute Eosinophils Absolute Basophils Sodium Potassium Chloride Carbon Dioxide Anion Gap BUN Creatinine Estimated GFR/1.73 m2 Glucose Calcium Magnesium Cancelled Total Bilirubin AST ALT Alkaline Phosphatase Troponin I Total Protein Albumin Procalcitonin < 0.1 COVID-19 Source Nasal/Nares SARS-CoV-2 (PCR) Positive A*
[2021-10-14] MEDS: VANCOMYCIN/WATER (PEG) 1 GM/200 ML BAG IV (17:23)
[2021-10-14] MEDS: Ascorbic Acid 500 MG TAB 1000 MG PO (19:37)
[2021-10-14] MEDS: Atorvastatin 40 MG TAB 80 MG PO (19:37)
[2021-10-14] MEDS: Melatonin 3 MG TAB 9 MG PO (21:31)
[2021-10-14] MEDS: Acetaminophen 325 MG TAB 650 MG PO (21:32)
[2021-10-14] MEDS: Budesonide/Formoterol 80/4.5 6.9 GM 60 PUFF INH IH (21:37)
[2021-10-15] VITALS (9 sets, daily range): BP systolic 100–111; BP diastolic 53–61; PULSE 62–84; RESP 16–20; TEMP 36.6–37.2; O2SAT 88–92
[2021-10-15] MEDS: cefTAZidime 2,000 MG in Normal Saline 100 ML 200 MG IVPB (02:57)
[2021-10-15] MEDS: Normal Saline Flush 10 ML SYR IVP ×3 (02:57→21:23)
[2021-10-15] MEDS: Levothyroxine 150 MCG TAB PO (05:00)
[2021-10-15 07:29] LABS: Abs Immature Grans 0.02 10^3/uL (0.0-0.06); Absolute Basophil Count 0.01 10^3/uL (0.0-0.2); Absolute Lymphocyte Count 1.33 10^3/uL (1.2-3.4); Absolute Monocyte Count 0.56 10^3/uL (0.1-0.8); Absolute Neutrophil Count 5.45 10^3/uL (1.2-6.7); Basophils % 0.1; HCT 33.5 % (36.0-46.0); HGB 10.5 g/dL (11.2-15.7); Immature Grans % 0.3; MCH 27.8 pg (27.0-33.0); MCHC 31.3 % (32.0-36.0); MCV 88.6 fL (80-95); MPV 10.6 fL (8.0-11.0); Monocytes % 7.6; Nucleated RBC 0 %; Platelet Count 205 10^3/uL (130-400); RBC 3.78 10^6/uL (3.93-5.22); RDW 14.7 % (11.7-14.6); RDW-SD 47.9 fL; WBC 7.37 10^3/uL (4.4-10.8)
[2021-10-15 07:44] LABS: BUN 28 mg/dL (7-18); CREATININE 1.2 mg/dL (0.55-1.02); Calcium 8.9 mg/dL (8.5-10.1); Estimated GFR 43.91 (mL/min/1.73m2); Glucose 99 mg/dL (74-106)
[2021-10-15 07:45] LABS: ALT 14 U/L (14-59); AST 13 U/L (15-37); Albumin 2.6 g/dL (3.4-5.0); Alkaline Phosphatase 106 U/L (46-116); Anion Gap 4.2 mmol/L (3-11); Bilirubin, Total 0.2 mg/dL (0.2-1.0); CO2 29.8 mmol/L (21.0-32.0); Chloride 105 mmol/L (98-107); Sodium 139 mmol/L (136-145); Total Protein 6.9 g/dL (6.4-8.2)
[2021-10-15] MEDS: VANCOMYCIN/WATER (PEG) 1 GM/200 ML BAG IV (08:13)
[2021-10-15] MEDS: Dexamethasone 4 MG TAB 6 MG PO (08:14)
[2021-10-15] MEDS: Cholecalciferol (Vitamin D3) 1,000 UNIT TAB 2000 UNITS PO (08:14)
[2021-10-15] MEDS: Ascorbic Acid 500 MG TAB 1000 MG PO ×2 (08:14→21:22)
[2021-10-15] MEDS: Pantoprazole 40 MG TABCR PO (08:14)
[2021-10-15] MEDS: Apixaban 5 MG TAB PO ×2 (08:14→21:22)
[2021-10-15] MEDS: Aspirin E.C. 81 MG TABEC PO (08:14)
[2021-10-15] MEDS: Budesonide/Formoterol 80/4.5 6.9 GM 60 PUFF INH IH ×2 (08:15→21:29)
[2021-10-15 08:57] LABS: Ferritin 45 ng/mL (8-252)
[2021-10-15] MEDS: Tiotropium Bromide-Respimat 10 PUFF INH 2 PUFF IH (15:03)
--- NOTE | 2021-10-15 16:13 | PGE_ITS ---
Date of Service Date of service: 10/15/21 Time of Service: 13:30 Assessment and Plan Assessment and plan (1) COVID-19: Start date: 10/15/21 Start time: 13:30 Status: Acute Assessment and plan: Positive on admission. Started on rendesivier, dexamethasone, melatonin, vitamin c and d Requiring oxygen at this time. She is sitting up on side of bed, she is not always compliant. She does have multiple psych issues and does not listen to reasoning. Continue telemetry (2) Hypoxemia: Start date: 10/15/21 Start time: 13:30 Status: Acute Assessment and plan: Patient is requiring oxygen presently with no long- term use of oxygen at home; d/t above. Currently at 3 L and 91% (3) Bronchitis: Start date: 10/15/21 Start time: 13:30 Status: Acute Assessment and plan: imaging with bronhioliolitis. Afebrile, no procalcitonin, ferritin normal, WBC normal. Will stop all antibiotcs as this time IS, acapella and treat for viral infection. This is likely vs pneumonia especially in setting of lack of no fever, nonprodcutive cough and white count. (4) Pneumonia: Start date: 10/15/21 Start time: 13:30 Status: Ruled-out Assessment and plan: as above treat as covid with bronchitis and copd exacerbation Qualifiers: Pneumonia type: due to unspecified organism Laterality: right Lung location: lower lobe of lung Qualified Code(s): J18.9 - Pneumonia, unspecified organism (5) COPD (chronic obstructive pulmonary disease): Start date: 10/15/21 Start time: 13:30 Status: Chronic Assessment and plan: Slightly exacerbated on dexamethasone, inhalers, updrafts, as above. Continue proning and sitting up right as much as possible Qualifiers: COPD type: emphysema Emphysema type: centrilobular Qualified Code(s): J43.2 - Centrilobular emphysema (6) DVT prophylaxis: Start date: 10/15/21 Start time: 13:30 Status: Acute Assessment and plan: apixaban 5 mg po BID (7) Discharge planning issues: Start date: 10/15/21 Start time: 13:30 Status: Acute Assessment and plan: Home when medically ready discussed with Dr. Blanton Subjective Subjective Patient reports: other Interval history since last seen: Compliant when she feels like it. Sitting on edge of bed. No complaints Exam Const General: cooperative (when she wants to be), comfortable, no acute distress and ill appearing chronically Nutritional Appearance: obese Orientation: alert, awake and oriented x3 Eyes Eyelids: eyelids normal Pupils: PERRL EOM: EOM intact bilaterally Neck Neck: normal visual inspection and no JVD Lymphatic: no lymphadenopathy noted Resp Effort & Inspection: normal respiratory effort, able to speak in complete sentences, cough (nonproduction) and other (Unable to lie flat SOB ith excertion) Auscultation: clear to auscultation bilaterally Cardio Jugular venous pressure: no JVD Rhythm: regular rhythm Heart Sounds: S1 normal GI Inspection: obesity Auscultation: normal bowel sounds General: No CVA tenderness and deferred Skin General skin exam: no rashes or lesions noted Neuro General: patient alert, patient awake and patient oriented x3 Cognition: abnormal cognition (multiple psych issues) Speech: speech normal Gait: normal gait Extrem General: normal to inspection, full ROM and pedal edema (+1 edema) bilaterally Psych Appearance: disheveled Insight: poor Judgment: poor Objective Last Vital Signs Temp 37.2 C 10/15/21 15:07 Pulse 68 10/15/21 15:07 Resp 18 10/15/21 15:07 BP 110/61 10/15/21 15:07 Pulse Ox 91 L 10/15/21 15:07 Laboratory Results - last 24 hr 10/15/21 10/15/21 07:15 07:15 WBC 7.37 RBC 3.78 L Hgb 10.5 L Hct 33.5 L MCV 88.6 MCH 27.8 MCHC 31.3 L RDW 14.7 H Plt Count 205 MPV 10.6 Immature Gran % 0.3 Neutrophils % 74.0 Lymphocytes % 18.0 Monocytes % 7.6 Eosinophils % 0.0 Basophils % 0.1 Nucleated RBC % 0 Absolute Neutrophils 5.45 Absolute Lymphocytes 1.33 Absolute Monocytes 0.56 Absolute Eosinophils 0.00 Absolute Basophils 0.01 Sodium 139 Potassium 4.0 Chloride 105 Carbon Dioxide 29.8 Anion Gap 4.2 BUN 28 H Creatinine 1.2 H Estimated GFR/1.73 m2 43.91 Glucose 99 Calcium 8.9 Ferritin 45 Total Bilirubin 0.2 AST 13 L ALT 14 Alkaline Phosphatase 106 Total Protein 6.9 Albumin 2.6 L
[2021-10-15] MEDS: Melatonin 3 MG TAB 9 MG PO (21:22)
[2021-10-15] MEDS: Atorvastatin 40 MG TAB 80 MG PO (21:22)
[2021-10-16] VITALS (9 sets, daily range): BP systolic 97–163; BP diastolic 57–69; PULSE 63–88; RESP 14–20; TEMP 36.4–36.9; O2SAT 90–91
[2021-10-16] MEDS: Levothyroxine 150 MCG TAB PO (05:51)
[2021-10-16 07:34] LABS: Abs Immature Grans 0.02 10^3/uL (0.0-0.06); Absolute Basophil Count 0.02 10^3/uL (0.0-0.2); Absolute Eosinophil Count 0.01 10^3/uL (0.0-0.7); Absolute Lymphocyte Count 1.65 10^3/uL (1.2-3.4); Absolute Neutrophil Count 4.21 10^3/uL (1.2-6.7); Basophils % 0.3; Eosinophils % 0.2; HCT 33.5 % (36.0-46.0); HGB 10.4 g/dL (11.2-15.7); Immature Grans % 0.3; Lymphocytes % 26.1; MCH 27.3 pg (27.0-33.0); MCV 87.9 fL (80-95); MPV 11.2 fL (8.0-11.0); Monocytes % 6.3; Neutrophils % 66.8; Nucleated RBC 0 %; Platelet Count 203 10^3/uL (130-400); RBC 3.81 10^6/uL (3.93-5.22); RDW 14.9 % (11.7-14.6); RDW-SD 48.3 fL; WBC 6.31 10^3/uL (4.4-10.8)
[2021-10-16 07:52] LABS: Anion Gap 6.7 mmol/L (3-11); BUN 27 mg/dL (7-18); CO2 29.3 mmol/L (21.0-32.0); CREATININE 1.2 mg/dL (0.55-1.02); Calcium 8.8 mg/dL (8.5-10.1); Chloride 106 mmol/L (98-107); Estimated GFR 43.91 (mL/min/1.73m2); Glucose 83 mg/dL (74-106); Potassium 3.8 mmol/L (3.5-5.1); Sodium 142 mmol/L (136-145)
[2021-10-16] MEDS: Normal Saline Flush 10 ML SYR IVP ×3 (07:52→21:56)
[2021-10-16] MEDS: Aspirin E.C. 81 MG TABEC PO (07:52)
[2021-10-16] MEDS: Cholecalciferol (Vitamin D3) 1,000 UNIT TAB 2000 UNITS PO (07:52)
[2021-10-16] MEDS: Ascorbic Acid 500 MG TAB 1000 MG PO ×2 (07:53→21:56)
[2021-10-16] MEDS: Dexamethasone 4 MG TAB 6 MG PO (07:53)
[2021-10-16] MEDS: Apixaban 5 MG TAB PO ×2 (07:53→21:56)
[2021-10-16] MEDS: Pantoprazole 40 MG TABCR PO (07:53)
[2021-10-16] MEDS: Tiotropium Bromide-Respimat 10 PUFF INH 2 PUFF IH (07:57)
[2021-10-16] MEDS: Budesonide/Formoterol 80/4.5 6.9 GM 60 PUFF INH IH ×2 (07:57→22:01)
--- NOTE | 2021-10-16 09:30 | W.PULMCON ---
General Date Of Service Date of service: 10/16/21 Time of Service: 08:00 Reason for Consult: COVID, Pneumonia, COPD Assessment and Plan Assessment and plan (1) COVID-19: Status: Acute (2) Pneumonia: Status: Ruled-out Qualifiers: Laterality: right Lung location: lower lobe of lung Pneumonia type: due to unspecified organism Qualified Code(s): J18.9 - Pneumonia, unspecified organism (3) Respiratory failure with hypoxia: Status: Acute (4) COPD (chronic obstructive pulmonary disease): Status: Chronic Assessment and plan: This is a 76 yo active smoker with COPD found to have COVID and pneumonia admitted for hypoxic respiratory failure. She is requiring 5L nc currently. 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 Her CT is suggestive of a bacterial pneumonia along with mucus plugging. Her airways thickening is chronic and likely represents a chronic bronchitis picture, but the nodular infiltrates were not present on her last scan in August. Although her procalcitonin was negative, this is not a perfect test and I prefer to treat her for a pnuemonia given her story and the CT findings. From a COVID perspective her inflammatory markers are normal, they no longer need monitoring unless there is a clinical change in the patient. Hypoxic respiratory failure - continue supplemental O2 support for sats 88-92% - recommend I.S. and Acapella COPD - not in exacerbation - receiving Decadron for COVID - has both Flovent and Trelegy on her home med list, would discharge her with just Trelegy and no Flovent COVID-19 - receiving Decadron and remdesivir - ambulation and self proning as able - if worsening can try HFNC and CPAP at night Pneumonia - recommend restarting antibiotics, ceftriaxone 1g q24hr is sufficient - total 5 day course recommended Qualifiers: COPD type: emphysema Emphysema type: centrilobular Qualified Code(s): J43.2 - Centrilobular emphysema History of Present Illness Narrative: This is a 76 yo woman who is a poor historian with COPD present with sudden shortness of breath without chest pain who was admitted from the [facility] for hypoxemia respiratory failure found to have COVID and pneumonia. She tells me she does not take any inhalers for her COPD, but there are medications documented in her home medication list that suggest otherwise. She is a current smoker of 0.5 ppd and continues to smoke. She had a chest CT completed which shows significant airways thickening and nodular infiltrates in the bilateral lower lobes and right middle lobe suggestive of an atypical pneumonia (not consistent with just COVID) as well as significant mucus plugging. Per her medication list she uses Trelegy and Flovent at home. Of note her CT scan from 09/16/21 does show airways thickening but does not show significant mucus plugging or nodular infiltrates. She denies being on home oxygen to me. She states her breathing is slightly better than when she initially presented. She denies chets pain. Denies productive cough. She has old PFT's from 2012, but nothing recent from what I can see. Review of Systems All systems reviewed & are unremarkable except as noted in HPI and below [facility] Active Problem List (Updated 10/16/21 @ 09:43 by Jolanta Reynolds MD) Respiratory failure with hypoxia (Acute) COVID-19 (Acute) COPD (chronic obstructive pulmonary disease) (Chronic) Low back pain (Acute) Noncompliance with medication regimen (Acute) Pain, joint, knee, right (Acute) Fall (Acute) Blunt head trauma (Acute) Blunt injury of back (Acute) Fall (Acute) Contusion (Acute) Auditory hallucination (Acute) Fall (Acute) Acute exacerbation of chronic obstructive pulmonary disease (COPD) (Acute) Hallucinations (Chronic) Discharge planning issues (Acute) DVT prophylaxis (Acute) Community acquired pneumonia (Acute) Abdominal pain (Acute) Vertigo (Acute) Diverticulosis (Chronic) Cholelithiasis (Chronic) Nausea vomiting and diarrhea (Acute) Unsteady gait when walking (Acute) Constipation (Chronic) Memory impairment (Chronic) 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) Osteoarthritis of right knee (Chronic) Medical History Aneurysm of infrarenal abdominal aorta Asthma exacerbation Bronchitis CKD (chronic kidney disease) stage 3, GFR 30-59 ml/min COPD (chronic obstructive pulmonary disease) COPD exacerbation Failure to thrive in adult Fracture of both ankles Hearing loss History of blood transfusion Hx of hyperlipidemia Hypertension Hypothyroidism Hypoxemia Non-insulin dependent diabetes mellitus Obesity Pulmonary embolism Seborrheic keratosis Smoker Surgical History History of bilateral tubal ligation History of hernia repair Family History Father Diabetes Social History Smoking/Tobacco Use Status: Current every day Tobacco Type: cigarettes Years smoked: 15 Tobacco: How many years used: 15 Counseling given: provider counseling and support medications Smoking risk assessment performed?: Yes Alcohol Intake: never Drug use: Never Substance use type: does not use Household members: none Housing: apartment Number of Children: 3 number of grandchildren: 1 What is your relationship status?: Panel score (0-1 are the most socially isolated patients): 0 What type of physical activity do you participate in: walking Seatbelt use: always Do you feel safe at home: Yes Do you feel safe in your relationship?: Yes Visit Medication and Allergies Active Medications Generic Name Dose Route Start Last Admin Trade Name Freq PRN Reason Stop Dose Admin Acetaminophen 650 mg 10/14/21 06:18 10/14/21 21:32 Acetaminophen 325 Mg Tab PO 650 mg Q4H PRN PRN Administration Al Hydrox/Mg Hydrox/Simethicone 30 ml 10/14/21 06:18 Mylanta Suspension 30 Ml Cup PO Q2H PRN PRN Albuterol Sulfate 2.5 mg 10/14/21 06:18 Albuterol 2.5 Mg/3 Ml Inh Soln Vial UPD Q2H PRN PRN Albuterol/Ipratropium 3 ml 10/14/21 06:18 Albuterol/Ipratropium 3 Ml Upd Vial UPD Q6H PRN PRN Apixaban 5 mg 10/14/21 08:30 10/16/21 07:53 Apixaban 5 Mg Tab PO 5 mg BID MARTINE Administration Ascorbic Acid 1,000 mg 10/14/21 20:00 10/16/21 07:53 Ascorbic Acid 500 Mg Tab PO 1,000 mg BID MARTINE Administration Aspirin 81 mg 10/14/21 08:30 10/16/21 07:52 Aspirin E.C. 81 Mg Tabec PO 81 mg DAILY MARTINE Administration Atorvastatin Calcium 80 mg 10/14/21 20:00 10/15/21 21:22 Atorvastatin 40 Mg Tab PO 80 mg QPM MARTINE Administration Budesonide/Formoterol Fumarate 2 puff 10/14/21 20:00 10/16/21 07:57 Budesonide/Formoterol 80/4.5 6.9 Gm 60 Puff Inh IH 2 puffs BID MARTINE Administration Cholecalciferol 2,000 units 10/14/21 14:00 10/16/21 07:52 Cholecalciferol (Vitamin D3) 1,000 Unit Tab PO 2,000 units DAILY MARTINE Administration Dexamethasone 6 mg 10/15/21 08:30 10/16/21 07:53 Dexamethasone 4 Mg Tab PO 6 mg DAILY MARTINE Administration Dimethicone/Zinc Oxide 0 gm 10/14/21 06:18 Michael Protect Cream 142 Gm Tube TP PRN PRN Docusate Sodium 100 mg 10/14/21 06:18 Docusate Sodium 100 Mg Cap PO TID PRN PRN Sodium Chloride 500 mls @ 0 mls/hr 10/13/21 21:07 Saline 500ml Bag IV PRN PRN As Directed Remdesivir 100 mg/ Sodium 100 mls @ 100 mls/hr 10/15/21 16:00 10/15/21 16:21 Chloride IVPB 10/18/21 16:59 Infused Q24H MARTINE Infusion Ceftriaxone Sodium/Dextrose 2 gm in 50 mls @ 100 mls/hr 10/16/21 08:00 Rocephin IVPB Q24H MARTINE IV Miscellaneous Supplies 1 each 10/13/21 21:15 Iv Access IV DIRECTED MARTINE Levothyroxine Sodium 150 mcg 10/14/21 06:45 10/16/21 05:51 Levothyroxine 150 Mcg Tab PO 150 mcg DAILY@0600 MARTINE Administration Magnesium Hydroxide 30 ml 10/14/21 06:18 Milk Of Magnesia 30 Ml Cup PO DAILY PRN PRN Melatonin 9 mg 10/14/21 22:00 10/15/21 21:22 Melatonin 3 Mg Tab PO 9 mg HS MARTINE Administration Ondansetron HCl 4 mg 10/14/21 06:35 Ondansetron O.D.T. 4 Mg Tabef PO Q8H PRN PRN Pantoprazole Sodium 40 mg 10/14/21 07:30 10/16/21 07:53 Pantoprazole 40 Mg Tabcr PO 40 mg DAILY@0730 MARTINE Administration Polyethylene Glycol 17 gm 10/14/21 06:18 Polyethylene Glycol 3350 17 Gm Packet PO DAILY PRN PRN Constipation Sodium Chloride 0 ml 10/13/21 21:07 10/16/21 07:52 Normal Saline Flush 10 Ml Syr IVP 10 ml PRN PRN Administration Tiotropium Smoaks 2 puff 10/15/21 14:00 10/16/21 07:57 Tiotropium Smoaks-Respimat 10 Puff Inh IH 2 puffs DAILY MARTINE Administration Allergies Penicillins Allergy (Intermediate, Verified 09/19/21 01:34) Swelling/Edema Bees Allergy (Uncoded 09/19/21 01:34) Exam Const General: no acute distress Nutritional Appearance: obese HENMO Head: normocephalic Ears: external ears normal and no periauricular adenopathy General nose exam: nasal mucous membranes and turbinates normal Face and sinus: sinuses nontender Mouth: oropharynx normal and moist mucous membranes Teeth and gingiva: dentition normal Eyes General: appearance normal, both eyes and all related structures Pupils: PERRL Neck Neck: normal visual inspection and no lymphadenopathy Chest Chest: normal inspection of the chest Resp Effort & Inspection: normal respiratory effort Auscultation: clear to auscultation bilaterally, no rales, no rhonchi and no wheezes Cardio Rate: regular rate Rhythm: regular rhythm Heart Sounds: S1 normal, S2 normal and no murmurs Pulses: radial pulses present bilaterally GI Inspection: normal to inspection Palpation: soft Skin General skin exam: no rashes or lesions noted Neuro General: patient alert, patient awake and patient oriented x3 Extrem General: no clubbing, cyanosis or edema Psych Mental Status: mental status grossly normal Affect: normal affect Attitude: cooperative Results Last Vital Signs Temp 36.9 C 10/16/21 07:58 Pulse 71 10/16/21 07:58 Resp 18 10/16/21 07:58 BP 117/57 L 10/16/21 07:58 Pulse Ox 91 L 10/16/21 08:00 Labs Result diagrams: 10/16/21 07:05 10/16/21 07:05 Labs: Laboratory Results - last 24 hr 10/16/21 10/16/21 07:05 07:05 WBC 6.31 RBC 3.81 L Hgb 10.4 L Hct 33.5 L MCV 87.9 MCH 27.3 MCHC 31.0 L RDW 14.9 H Plt Count 203 MPV 11.2 H Immature Gran % 0.3 Neutrophils % 66.8 Lymphocytes % 26.1 Monocytes % 6.3 Eosinophils % 0.2 Basophils % 0.3 Nucleated RBC % 0 Absolute Neutrophils 4.21 Absolute Lymphocytes 1.65 Absolute Monocytes 0.40 Absolute Eosinophils 0.01 Absolute Basophils 0.02 Sodium 142 Potassium 3.8 Chloride 106 Carbon Dioxide 29.3 Anion Gap 6.7 BUN 27 H Creatinine 1.2 H Estimated GFR/1.73 m2 43.91 Glucose 83 Calcium 8.8
[2021-10-16] MEDS: cefTRIAXone 2 GM/50 ML BAG IVPB (11:15)
--- NOTE | 2021-10-16 11:48 | NUR.NOTE ---
Nursing Note: At 1130, patient opened her door. Patient then shut the door and stated to herself You will not get me into trouble when there is no one out there. There is NO ONE out there. Charge nurse notified. Will continue to monitor.
--- NOTE | 2021-10-16 14:00 | PHA.REVIEW ---
Pharmacy Admission Review - Admission Clinical Review (Last Updated 10/16/21 @ 09:43 by Jolanta Reynolds MD) Respiratory failure with hypoxia (Acute) COVID-19 (Acute) Discharge planning issues (Acute) DVT prophylaxis (Acute) Penicillins Allergy (Intermediate, Verified 09/19/21 01:34) Swelling/Edema Bees Allergy (Uncoded 09/19/21 01:34) Resuscitation Status Full Code Height 5 ft 4 in Weight 103.3 kg - Renal Dosing Renal Dosing: BUN 27 mg/dL (7-18) H 10/16/21 07:05 Creatinine 1.2 mg/dL (0.55-1.02) H 10/16/21 07:05 Medications needing adjustments: Reviewed (SCr: 1.2, CrCl~48.1mL/min (using adjusted body weight), all medications dosed appropriately.) - Anticoagulation Anticoagulation: Hgb 10.4 g/dL (11.2-15.7) L 10/16/21 07:05 Hct 33.5 % (36.0-46.0) L 10/16/21 07:05 Plt Count 203 10^3/uL (130-400) 10/16/21 07:05 Creatinine 1.2 mg/dL (0.55-1.02) H 10/16/21 07:05 DVT Prophylaxis: N/A Therapeutic Anticoagulation: Reviewed Medications: Apixaban (Apixaban 5mg BID) - Opiate Usage Evaluate Pain Scale/Pains Meds: N/A (No opiates administered this admission.) - Relevant Labs Sodium 142 mmol/L (136-145) 10/16/21 07:05 Potassium 3.8 mmol/L (3.5-5.1) 10/16/21 07:05 Chloride 106 mmol/L (98-107) 10/16/21 07:05 Magnesium Cancelled 10/14/21 06:21 Electrolytes, C-Reactive P, ESR: Reviewed - DM Control DM Control: Glucose 83 mg/dL (74-106) 10/16/21 07:05 Insulin Dosing: N/A - Heart Failure/MD Heart Failure/MD: Troponin I < 0.05 ng/mL (<0.06) 10/14/21 00:08 EF%, CHEIKH's, B-Blockers, Diuretics: Reviewed - BP Control BP Control: Blood Pressure 115/59 Blood Pressure 117/57 Blood Pressure 122/62 If elevated: Reviewed (Blood pressure low during this admission.) - Qtc Review If Elevated: N/A (QTc 445 on admission.) - IV to PO Switch IV Medications: Reviewed - Home Meds Home Med List reviewed: Intervened Relevent Home Meds Not ordered & why?: Trelegy (changed to Symbicort and Spiriva Respimat). Aripiprazole 5mg daily - recently picked up on external med list, should still be taking per patient's PCP. - Current meds Current Medication Order Review: Reviewed - Comments Comments/Follow Ups: Continue to monitor blood pressure, vitals, labs and for medication changes.
--- NOTE | 2021-10-16 15:49 | PGE_ITS ---
Date of Service Date of service: 10/16/21 Time of Service: 15:49 Assessment and Plan Assessment and plan (1) COVID-19: Status: Acute Assessment and plan: Positive on admission. continue rendesivier, dexamethasone, melatonin, vitamin c and d still requiring oxygen at this time. Continue telemetry (2) Hypoxemia: Assessment and plan: Patient is requiring oxygen presently with no long- term use of oxygen at home; d/t above. Currently at 3 L and 91% (3) Bronchitis: Assessment and plan: imaging with bronhioliolitis. Afebrile, no procalcitonin, ferritin normal, WBC normal. Will stop all antibiotcs as this time IS, acapella and treat for viral infection. This is likely vs pneumonia especially in setting of lack of no fever, nonprodcutive cough and white count. (4) Pneumonia: Status: Ruled-out Assessment and plan: as above treat as covid with bronchitis and copd exacerbation Qualifiers: Laterality: right Lung location: lower lobe of lung Pneumonia type: due to unspecified organism Qualified Code(s): J18.9 - Pneumonia, unspecified organism (5) COPD (chronic obstructive pulmonary disease): Status: Chronic Assessment and plan: Slightly exacerbated on dexamethasone, inhalers, updrafts, as above. Continue proning and sitting up right as much as possible Qualifiers: COPD type: emphysema Emphysema type: centrilobular Qualified Code(s): J43.2 - Centrilobular emphysema (6) DVT prophylaxis: Status: Acute Assessment and plan: apixaban 5 mg po BID (7) Discharge planning issues: Status: Acute Assessment and plan: Home when medically ready discussed with Dr. Blanton Subjective Subjective Patient reports: no new complaints, feels better, tolerating liquids well, tolerating a regular diet and afebrile Exam Const General: cooperative (when she wants to be), comfortable, no acute distress and ill appearing chronically Nutritional Appearance: obese Orientation: alert, awake and oriented x3 Eyes Eyelids: eyelids normal Pupils: PERRL EOM: EOM intact bilaterally Neck Neck: normal visual inspection and no JVD Lymphatic: no lymphadenopathy noted Resp Effort & Inspection: normal respiratory effort, able to speak in complete sentences, cough (nonproduction) and other (Unable to lie flat SOB ith excertion) Auscultation: clear to auscultation bilaterally Cardio Jugular venous pressure: no JVD Rhythm: regular rhythm Heart Sounds: S1 normal GI Inspection: obesity Auscultation: normal bowel sounds General: No CVA tenderness and deferred Skin General skin exam: no rashes or lesions noted Neuro General: patient alert, patient awake and patient oriented x3 Cognition: abnormal cognition (multiple psych issues) Speech: speech normal Gait: normal gait Extrem General: normal to inspection, full ROM and pedal edema (+1 edema) bilaterally Psych Appearance: disheveled Insight: poor Judgment: poor Objective Last Vital Signs Temp 36.8 C 10/16/21 12:05 Pulse 74 10/16/21 12:05 Resp 20 10/16/21 12:05 BP 115/59 L 10/16/21 12:05 Pulse Ox 91 L 10/16/21 12:05 Laboratory Results - last 24 hr 10/16/21 10/16/21 07:05 07:05 WBC 6.31 RBC 3.81 L Hgb 10.4 L Hct 33.5 L MCV 87.9 MCH 27.3 MCHC 31.0 L RDW 14.9 H Plt Count 203 MPV 11.2 H Immature Gran % 0.3 Neutrophils % 66.8 Lymphocytes % 26.1 Monocytes % 6.3 Eosinophils % 0.2 Basophils % 0.3 Nucleated RBC % 0 Absolute Neutrophils 4.21 Absolute Lymphocytes 1.65 Absolute Monocytes 0.40 Absolute Eosinophils 0.01 Absolute Basophils 0.02 Sodium 142 Potassium 3.8 Chloride 106 Carbon Dioxide 29.3 Anion Gap 6.7 BUN 27 H Creatinine 1.2 H Estimated GFR/1.73 m2 43.91 Glucose 83 Calcium 8.8
--- NOTE | 2021-10-16 18:32 | PDOC.CMPRO ---
- If Service Date Differs Date of service: 10/16/21 Time of Service: 18:32 Care Management Progress Note S/O: CM spoke to Fabiola on the phone today, as she is on Covid 19 precautions. She stated that she is doing alright today, but continues to require 4-5 L of supplemental O2, and is feeling SOB. She reported that she is not on home O2 at baseline, so this is concerning to her. CM offered her activity cart items, which she happily accepted. Per staff, she has been opening her door and has not been compliant with Covid restrictions during this admission. CM received calls from Kailee Muñoz, COA case sealer, as well as Vianey Calles, APS digital forensics investigator. Per Vianey, there were previous concerns regarding people 'squatting' in her apartment that she did not know, but they have since been vacated. There also may be concerns about her forgetfulness and being home alone. She currently receives [facility] and [facility] support. CM will discuss other options for care at home, including HH services and [facility] support. CM will continue to follow. A: Fabiola is a 76 year old female admitted to [facility] on 10/14/21 with RLL Pneumonia, COPD, hypoxemia. P: Fabiola will likely be discharged home with new services when medically cleared by provider. She will follow up with her PCP, community providers, and plan of care as prescribed. Fabiola will be transported home via RCT vs. ambulance when ready. CM will continue to follow.
[2021-10-16] MEDS: Melatonin 3 MG TAB 9 MG PO (21:55)
[2021-10-16] MEDS: Atorvastatin 40 MG TAB 80 MG PO (21:55)
[2021-10-16] MEDS: Polyethylene Glycol 3350 17 GM PACKET PO (21:56)
[2021-10-16] MEDS: ARIPiprazole 5 MG TAB PO (21:56)
[2021-10-17] VITALS (8 sets, daily range): BP systolic 114–138; BP diastolic 64–76; PULSE 58–74; RESP 18–19; TEMP 35.1–36.6; O2SAT 90–95
[2021-10-17] MEDS: Levothyroxine 150 MCG TAB PO (06:06)
[2021-10-17] MEDS: cefTRIAXone 2 GM/50 ML BAG IVPB (07:55)
[2021-10-17] MEDS: Tiotropium Bromide-Respimat 10 PUFF INH 2 PUFF IH (07:55)
[2021-10-17] MEDS: Dexamethasone 4 MG TAB 6 MG PO (07:56)
[2021-10-17] MEDS: Aspirin E.C. 81 MG TABEC PO (07:56)
[2021-10-17] MEDS: Polyethylene Glycol 3350 17 GM PACKET PO ×2 (07:56→20:32)
[2021-10-17] MEDS: Cholecalciferol (Vitamin D3) 1,000 UNIT TAB 2000 UNITS PO (07:56)
[2021-10-17] MEDS: Ascorbic Acid 500 MG TAB 1000 MG PO ×2 (07:56→20:31)
[2021-10-17] MEDS: Apixaban 5 MG TAB PO ×2 (07:56→22:12)
[2021-10-17] MEDS: Pantoprazole 40 MG TABCR PO (07:57)
[2021-10-17] MEDS: Budesonide/Formoterol 80/4.5 6.9 GM 60 PUFF INH IH ×2 (07:58→20:32)
--- NOTE | 2021-10-17 11:32 | PGE_ITS ---
Date of Service Date of service: 10/17/21 Time of Service: 11:32 Assessment and Plan Assessment and plan (1) COVID-19: Status: Acute Assessment and plan: Positive on admission. continue rendesivier, dexamethasone, melatonin, vitamin c and d still requiring oxygen at this time, increased to 5 liters via oxymask. will repeat blood work in am. Continue telemetry (2) Hypoxemia: Assessment and plan: Patient is requiring oxygen presently with no long- term use of oxygen at home; d/t above. increased to 5 liters via oxymask (3) Bronchitis: Assessment and plan: imaging with bronhioliolitis. Afebrile, no procalcitonin, ferritin normal, WBC normal. Will stop all antibiotcs as this time IS, acapella and treat for viral infection. This is likely vs pneumonia especially in setting of lack of no fever, nonproductive cough and white count. (4) Pneumonia: Status: Ruled-out Assessment and plan: as above treat as covid with bronchitis and copd exacerbation Qualifiers: Laterality: right Lung location: lower lobe of lung Pneumonia type: due to unspecified organism Qualified Code(s): J18.9 - Pneumonia, unspecified organism (5) COPD (chronic obstructive pulmonary disease): Status: Chronic Assessment and plan: Slightly exacerbated on dexamethasone, inhalers, up drafts, as above. Continue proning and sitting up right as much as possible Qualifiers: COPD type: emphysema Emphysema type: centrilobular Qualified Code(s): J43.2 - Centrilobular emphysema (6) DVT prophylaxis: Status: Acute Assessment and plan: apixaban 5 mg po BID (7) Discharge planning issues: Status: Acute Assessment and plan: Home when medically ready discussed with Dr. Blanton Subjective Subjective Patient reports: no new complaints, tolerating liquids well, tolerating a regular diet and afebrile Interval history since last seen: increased oxygen requirements but not always compliant with treatment. Exam Const General: cooperative (when she wants to be), comfortable, no acute distress and ill appearing chronically Nutritional Appearance: obese Orientation: alert, awake and oriented x3 Eyes Eyelids: eyelids normal Pupils: PERRL EOM: EOM intact bilaterally Neck Neck: normal visual inspection and no JVD Lymphatic: no lymphadenopathy noted Resp Effort & Inspection: normal respiratory effort, able to speak in complete sentences, cough (nonproduction) and other (Unable to lie flat SOB ith excertion) Auscultation: clear to auscultation bilaterally Cardio Jugular venous pressure: no JVD Rhythm: regular rhythm Heart Sounds: S1 normal GI Inspection: obesity Auscultation: normal bowel sounds General: No CVA tenderness and deferred Skin General skin exam: no rashes or lesions noted Neuro General: patient alert, patient awake and patient oriented x3 Cognition: abnormal cognition (multiple psych issues) Speech: speech normal Gait: normal gait Extrem General: normal to inspection, full ROM and pedal edema (+1 edema) bilaterally Psych Appearance: disheveled Insight: poor Judgment: poor Objective Last Vital Signs Temp 36.4 C L 10/17/21 07:53 Pulse 69 10/17/21 07:53 Resp 18 10/17/21 07:53 BP 114/65 10/17/21 07:53 Pulse Ox 90 L 10/17/21 07:53
--- NOTE | 2021-10-17 12:39 | PDOC.CMPRO ---
- If Service Date Differs Date of service: 10/17/21 Time of Service: 12:39 Care Management Progress Note S/O: CM was unable to reach Fabiola by phone today. Per report, she has been increased to 5L O2 via oxymask. She is tolerating her diet and is afebrile. Her O2 requirements have increased, but she is at times non compliant, which will be a factor in her recovery. CM will continue to follow. A: Fabiola is a 76 year old female admitted to [facility] on 10/14/21 with RLL Pneumonia, COPD, hypoxemia. P: Fabiola will likely be discharged home with new services when medically cleared by provider. She will follow up with her PCP, community providers, and plan of care as prescribed. Fabiola will be transported home via RCT vs. ambulance when ready. CM will continue to follow.
[2021-10-17] MEDS: Normal Saline Flush 10 ML SYR IVP (20:32)
[2021-10-17] MEDS: Atorvastatin 40 MG TAB 80 MG PO (20:32)
[2021-10-17] MEDS: Melatonin 3 MG TAB 9 MG PO (22:12)
[2021-10-17] MEDS: ARIPiprazole 5 MG TAB PO (22:12)
[2021-10-17] MEDS: QUEtiapine 25 MG TAB PO (23:22)
[2021-10-18] VITALS (11 sets, daily range): BP systolic 115–135; BP diastolic 63–77; PULSE 62–75; RESP 14–28; TEMP 35.2–36.4; O2SAT 90–98
[2021-10-18] MEDS: Levothyroxine 150 MCG TAB PO (05:35)
[2021-10-18 07:07] LABS: Abs Immature Grans 0.01 10^3/uL (0.0-0.06); Absolute Basophil Count 0.02 10^3/uL (0.0-0.2); Absolute Eosinophil Count 0.01 10^3/uL (0.0-0.7); Absolute Lymphocyte Count 1.78 10^3/uL (1.2-3.4); Absolute Monocyte Count 0.35 10^3/uL (0.1-0.8); Basophils % 0.4; Eosinophils % 0.2; HCT 34.4 % (36.0-46.0); HGB 10.7 g/dL (11.2-15.7); Immature Grans % 0.2; Lymphocytes % 33.1; MCH 27.5 pg (27.0-33.0); MCHC 31.1 % (32.0-36.0); MCV 88.4 fL (80-95); MPV 11.2 fL (8.0-11.0); Monocytes % 6.5; Neutrophils % 59.6; Nucleated RBC 0 %; Platelet Count 182 10^3/uL (130-400); RBC 3.89 10^6/uL (3.93-5.22); RDW 14.7 % (11.7-14.6); RDW-SD 47.9 fL; WBC 5.37 10^3/uL (4.4-10.8)
[2021-10-18] MEDS: Normal Saline Flush 10 ML SYR IVP ×2 (07:50→19:53)
[2021-10-18] MEDS: cefTRIAXone 2 GM/50 ML BAG IVPB (07:50)
[2021-10-18 07:58] LABS: ALT 20 U/L (14-59); AST 17 U/L (15-37); Albumin 2.6 g/dL (3.4-5.0); Alkaline Phosphatase 93 U/L (46-116); BUN 33 mg/dL (7-18); Bilirubin, Total 0.2 mg/dL (0.2-1.0); C-Reactive Protein 0.08 mg/dL (0.0-0.3); CREATININE 1.1 mg/dL (0.55-1.02); Calcium 8.8 mg/dL (8.5-10.1); Chloride 107 mmol/L (98-107); Estimated GFR 48.55 (mL/min/1.73m2); Glucose 79 mg/dL (74-106); NT-proBNP 307 pg/mL (<300); Potassium 3.9 mmol/L (3.5-5.1); Sodium 141 mmol/L (136-145); Total Protein 6.5 g/dL (6.4-8.2)
[2021-10-18] MEDS: Dexamethasone 4 MG TAB 6 MG PO (07:58)
[2021-10-18] MEDS: Polyethylene Glycol 3350 17 GM PACKET PO ×2 (07:58→19:53)
[2021-10-18] MEDS: Apixaban 5 MG TAB PO ×2 (07:59→19:54)
[2021-10-18] MEDS: Budesonide/Formoterol 80/4.5 6.9 GM 60 PUFF INH IH ×2 (07:59→19:55)
[2021-10-18] MEDS: Ascorbic Acid 500 MG TAB 1000 MG PO ×2 (07:59→19:54)
[2021-10-18] MEDS: Aspirin E.C. 81 MG TABEC PO (07:59)
[2021-10-18] MEDS: Pantoprazole 40 MG TABCR PO (07:59)
[2021-10-18] MEDS: Cholecalciferol (Vitamin D3) 1,000 UNIT TAB 2000 UNITS PO (07:59)
[2021-10-18] MEDS: Tiotropium Bromide-Respimat 10 PUFF INH 2 PUFF IH (08:00)
[2021-10-18 08:21] LABS: Ferritin 46 ng/mL (8-252)
--- NOTE | 2021-10-18 11:23 | NUR.NOTE ---
Patient has repeatedly opened door to hallway and yelled See?! Nobody's there!, and then shuts door. Went into patient room to assist her with her needs. Had discussion with patient about how she has an airborne respiratory disease and should not be opening the door for staff safety. Encouraged patient to ring her call ennis if she is in need of anything. Patient verbalizes understanding and agreement. Nursing Note:
--- NOTE | 2021-10-18 14:35 | PGE_ITS ---
Date of Service Date of service: 10/18/21 Time of Service: 14:35 Assessment and Plan Assessment and plan (1) COVID-19: Status: Acute Assessment and plan: Positive on admission. continue rendesivier, dexamethasone, melatonin, vitamin c and d finally able to wean oxygen, and now down to 2 l nc. CRP continues to trend downwards, labs all stable or improving. telemetry discontinued (2) Hypoxemia: Assessment and plan: Patient is requiring oxygen presently with no long- term use of oxygen at home; weaning down to 2 liters, continue to wean off (3) Bronchitis: Assessment and plan: imaging with bronhioliolitis. Afebrile, no procalcitonin, ferritin normal, WBC normal. Will stop all antibiotcs as this time IS, acapella and treat for viral infection. This is likely vs pneumonia especially in setting of lack of no fever, nonproductive cough and white count. (4) Pneumonia: Status: Ruled-out Assessment and plan: as above treat as covid with bronchitis and copd exacerbation Qualifiers: Pneumonia type: due to unspecified organism Laterality: right Lung location: lower lobe of lung Qualified Code(s): J18.9 - Pneumonia, unspecified organism (5) COPD (chronic obstructive pulmonary disease): Status: Chronic Assessment and plan: Slightly exacerbated on dexamethasone, inhalers, updrafts, as above. Continue proning and sitting up right as much as possible Qualifiers: COPD type: emphysema Emphysema type: centrilobular Qualified Code(s): J43.2 - Centrilobular emphysema (6) DVT prophylaxis: Status: Acute Assessment and plan: apixaban 5 mg po BID (7) Discharge planning issues: Status: Acute Assessment and plan: Home when medically ready continue to wean oxygen discussed with Dr. Blanton Subjective Subjective Patient reports: no new complaints, feels better, tolerating liquids well, tolerating a regular diet and afebrile Interval history since last seen: weaning oxygen. down to 2 liters nc. Exam Const General: cooperative (when she wants to be), comfortable, no acute distress and ill appearing chronically Nutritional Appearance: obese Orientation: alert, awake and oriented x3 Eyes Eyelids: eyelids normal Pupils: PERRL EOM: EOM intact bilaterally Neck Neck: normal visual inspection and no JVD Lymphatic: no lymphadenopathy noted Resp Effort & Inspection: normal respiratory effort, able to speak in complete sentences, cough (nonproduction) and other (Unable to lie flat SOB ith excertion) Auscultation: clear to auscultation bilaterally Cardio Jugular venous pressure: no JVD Rhythm: regular rhythm GI Inspection: obesity Auscultation: normal bowel sounds General: No CVA tenderness and deferred Skin General skin exam: no rashes or lesions noted Neuro General: patient alert and patient awake Speech: speech normal Gait: normal gait Extrem General: normal to inspection, full ROM and pedal edema (+1 edema) bilaterally Psych Appearance: disheveled Insight: poor Judgment: poor Objective Last Vital Signs Temp 35.5 C L 10/18/21 12:17 Pulse 69 10/18/21 12:17 Resp 28 H 10/18/21 12:17 BP 135/77 10/18/21 12:17 Pulse Ox 94 10/18/21 14:12 Laboratory Results - last 24 hr 10/18/21 10/18/21 06:40 06:40 WBC 5.37 RBC 3.89 L Hgb 10.7 L Hct 34.4 L MCV 88.4 MCH 27.5 MCHC 31.1 L RDW 14.7 H Plt Count 182 MPV 11.2 H Immature Gran % 0.2 Neutrophils % 59.6 Lymphocytes % 33.1 Monocytes % 6.5 Eosinophils % 0.2 Basophils % 0.4 Nucleated RBC % 0 Absolute Neutrophils 3.20 Absolute Lymphocytes 1.78 Absolute Monocytes 0.35 Absolute Eosinophils 0.01 Absolute Basophils 0.02 Sodium 141 Potassium 3.9 Chloride 107 Carbon Dioxide 30.0 Anion Gap 4.0 BUN 33 H Creatinine 1.1 H Estimated GFR/1.73 m2 48.55 Glucose 79 Calcium 8.8 Ferritin 46 Total Bilirubin 0.2 AST 17 ALT 20 Alkaline Phosphatase 93 C-Reactive Protein 0.08 NT-Pro-B Natriuret Pep 307 H Total Protein 6.5 Albumin 2.6 L
--- NOTE | 2021-10-18 14:37 | W.DIABETESNO ---
Date of service: 10/18/21 Time of Service: 14:37 Diabetes Note NOTE: PO intake is good mostly. Heart healthy eating diet. Blood sugars at target. A1C on 08/29/21 was 6.4 also at target. She is 103.3 kg. BMI is 39.1 kg/m2 c/2 class 2 obesity. Looking back at her weights historically, she has sustained a 7% weight loss in 3 months which is just shy of a significant weight loss. Will continue to follow weight, blood sugars, and PO. Will evaluate nutrition care plan ongoing and adjust as needed. Time Spent in Nutritional Counseling and Treatment: 0
--- NOTE | 2021-10-18 18:33 | PDOC.CMPRO ---
- If Service Date Differs Date of service: 10/18/21 Time of Service: 18:33 Care Management Progress Note S/O: CM attempted to talk to Fabiola over the phone, as she remains on Covid 19 precautions, but she did not answer multiple calls. Per report, she is being weaned down from 5L O2, to now 2L O2, and her labs are improving. Her O2 will continue to be weaned, as she does not require O2 at home. CM will continue to follow. A: Fabiola is a 76 year old female admitted to [facility] on 10/14/21 with RLL Pneumonia, COPD, hypoxemia. P: Fabiola will likely be discharged home with new services when medically cleared by provider. She will follow up with her PCP, community providers, and plan of care as prescribed. Fabiola will be transported home via RCT vs. ambulance when ready. CM will continue to follow.
[2021-10-18] MEDS: Atorvastatin 40 MG TAB 80 MG PO (19:54)
[2021-10-18] MEDS: QUEtiapine 25 MG TAB PO (21:25)
[2021-10-18] MEDS: Melatonin 3 MG TAB 9 MG PO (21:25)
[2021-10-18] MEDS: ARIPiprazole 5 MG TAB PO (21:25)
[2021-10-19] MEDS: Levothyroxine 150 MCG TAB PO (05:52)
[2021-10-19] MEDS: Dexamethasone 4 MG TAB 6 MG PO (07:51)
[2021-10-19] MEDS: Polyethylene Glycol 3350 17 GM PACKET PO ×2 (07:51→20:11)
[2021-10-19] MEDS: Apixaban 5 MG TAB PO ×2 (07:52→20:10)
[2021-10-19] MEDS: Ascorbic Acid 500 MG TAB 1000 MG PO ×2 (07:53→20:10)
[2021-10-19] MEDS: Pantoprazole 40 MG TABCR PO (07:53)
[2021-10-19] MEDS: Aspirin E.C. 81 MG TABEC PO (07:53)
[2021-10-19] MEDS: Budesonide/Formoterol 80/4.5 6.9 GM 60 PUFF INH IH ×2 (07:54→20:11)
[2021-10-19] MEDS: Cholecalciferol (Vitamin D3) 1,000 UNIT TAB 2000 UNITS PO (07:54)
[2021-10-19] MEDS: Tiotropium Bromide-Respimat 10 PUFF INH 2 PUFF IH (07:55)
[2021-10-19 08:00] VITALS: BP 129/84; PULSE 76; RESP 18; TEMP 36.4; O2SAT 90
--- NOTE | 2021-10-19 09:29 | NUR.NOTE ---
Nursing Note: Again to highlight. patient has still had instances of audio disturbances, as example knocking on the door, and people yelling her name. When nursing is in the room with her, she can be redirected. But noted that this still remains a source of frustration with her when she hears these.
[2021-10-19] MEDS: Normal Saline 500 ML 30 ML IV (16:07)
[2021-10-19] MEDS: Normal Saline Flush 10 ML SYR IVP (16:08)
--- NOTE | 2021-10-19 17:36 | CMPROGNOTE_ITS ---
- If Service Date Differs Date of service: 10/19/21 Time of Service: 17:36 Care Management Progress Note S/O: Per report, Fabiola is clinically improving. She is on 2L O2, and will continue to be weaned down. Once she is stable on room air, she will likely be ready for discharge. CM attempted to reach Fabiola by phone today, but was unsuccessful. CM will continue to follow. A: Fabiola is a 76 year old female admitted to [facility] on 10/14/21 with RLL Pneumonia, COPD, hypoxemia. P: Fabiola will likely be discharged home with new RN, [employer] when medically cleared by provider. She will follow up with her PCP, community providers, and plan of care as prescribed. Fabiola will be transported home via RCT vs. ambulance when ready. CM will continue to follow.
[2021-10-19 20:02] VITALS: BP 130/73; PULSE 72; RESP 20; TEMP 36.5; O2SAT 90
[2021-10-19] MEDS: Atorvastatin 40 MG TAB 80 MG PO (20:09)
[2021-10-19] MEDS: Acetaminophen 325 MG TAB 650 MG PO (20:09)
[2021-10-19] MEDS: ARIPiprazole 5 MG TAB PO (22:43)
[2021-10-19] MEDS: QUEtiapine 25 MG TAB PO (22:43)
[2021-10-19] MEDS: Melatonin 3 MG TAB 9 MG PO (22:44)
[2021-10-20] MEDS: Levothyroxine 150 MCG TAB PO (05:40)
[2021-10-20 07:46] VITALS: BP 101/69; PULSE 79; RESP 18; TEMP 36.3; O2SAT 90
[2021-10-20] MEDS: Tiotropium Bromide-Respimat 10 PUFF INH 2 PUFF IH (07:48)
[2021-10-20] MEDS: Budesonide/Formoterol 80/4.5 6.9 GM 60 PUFF INH IH ×2 (07:49→19:39)
[2021-10-20] MEDS: Aspirin E.C. 81 MG TABEC PO (07:51)
[2021-10-20] MEDS: Polyethylene Glycol 3350 17 GM PACKET PO (07:51)
[2021-10-20] MEDS: Dexamethasone 4 MG TAB 6 MG PO (07:52)
[2021-10-20] MEDS: Cholecalciferol (Vitamin D3) 1,000 UNIT TAB 2000 UNITS PO (07:52)
[2021-10-20] MEDS: Apixaban 5 MG TAB PO ×2 (07:52→19:39)
[2021-10-20] MEDS: Pantoprazole 40 MG TABCR PO (07:53)
[2021-10-20] MEDS: Ascorbic Acid 500 MG TAB 1000 MG PO ×2 (07:53→19:38)
[2021-10-20 07:57] VITALS: RESP 18
[2021-10-20] MEDS: QUEtiapine 25 MG TAB PO ×2 (12:17→22:01)
--- NOTE | 2021-10-20 14:19 | PGE_ITS ---
Date of Service Date of service: 10/20/21 Time of Service: 14:19 Assessment and Plan Assessment and plan (1) COVID-19: Start date: 10/20/21 Start time: 14:30 Status: Acute Assessment and plan: Positive on admission. continue rendesivier, dexamethasone, melatonin, vitamin c and d On RA, appears well. to be back at baseline, possible discharge home in am. CRP continues to trend downwards, labs all stable or improving. (2) Hypoxemia: Start date: 10/20/21 Start time: 14:31 Assessment and plan: Resolved. On RA. Will exercise oximetry in am. (3) Bronchitis: Start date: 10/20/21 Start time: 14:33 Assessment and plan: imaging with bronhioliolitis. Afebrile, no procalcitonin, ferritin normal, WBC normal. IS, acapella (4) Pneumonia: Start date: 10/20/21 Start time: 14:34 Status: Ruled-out Assessment and plan: as above treat as covid with bronchitis and copd exacerbation Qualifiers: Pneumonia type: due to unspecified organism Laterality: right Lung location: lower lobe of lung Qualified Code(s): J18.9 - Pneumonia, unspecified organism (5) COPD (chronic obstructive pulmonary disease): Start date: 10/20/21 Start time: 14:38 Status: Chronic Assessment and plan: Slightly exacerbated on dexamethasone, inhalers, updrafts, as above. Continue proning and sitting up right as much as possible Qualifiers: COPD type: emphysema Emphysema type: centrilobular Qualified Code(s): J43.2 - Centrilobular emphysema (6) DVT prophylaxis: Start date: 10/20/21 Start time: 14:38 Status: Acute Assessment and plan: apixaban 5 mg po BID (7) Discharge planning issues: Start date: 10/20/21 Start time: 14:38 Status: Acute Assessment and plan: Home when medically ready no longer requiring oxygen discussed with Dr. Blanton Subjective Subjective Patient reports: diarrhea Interval history since last seen: Patient sitting up in Chair. Requiring no oxygen today she is at 90% on RA. She has COPD. [facility] [place]. Her only complaint is diarrhea. Will order cdiff r/o. imodium q 4. and if cdiff negative. patient could be discharged in am. Will do exercise oxiemtery. Patient appears to be at baseline. Possible discharge in am. Exam Const General: cooperative (when she wants to be), comfortable, no acute distress and ill appearing chronically Nutritional Appearance: obese Orientation: alert, awake and oriented x3 Eyes Eyelids: eyelids normal Pupils: PERRL EOM: EOM intact bilaterally Neck Neck: normal visual inspection and no JVD Lymphatic: no lymphadenopathy noted Resp Effort & Inspection: normal respiratory effort, able to speak in complete sentences and other (Unable to lie flat SOB ith excertion) Auscultation: clear to auscultation bilaterally Cardio Jugular venous pressure: no JVD Rhythm: regular rhythm Heart Sounds: S1 normal GI Inspection: obesity Auscultation: normal bowel sounds General: No CVA tenderness and deferred Skin General skin exam: no rashes or lesions noted Neuro General: patient alert, patient awake and patient oriented x3 Cognition: abnormal cognition (multiple psych issues) Speech: speech normal Gait: normal gait Extrem General: normal to inspection, full ROM and pedal edema (+1 edema) bilaterally Psych Appearance: disheveled Insight: poor Judgment: poor Objective Last Vital Signs Temp 36.3 C L 10/20/21 07:46 Pulse 79 10/20/21 07:46 Resp 18 10/20/21 07:57 BP 101/69 10/20/21 07:46 Pulse Ox 90 L 10/20/21 07:46
[2021-10-20] MEDS: Loperamide 2 MG CAP 4 MG PO (15:06)
[2021-10-20] MEDS: Normal Saline Flush 10 ML SYR IVP (16:33)
--- NOTE | 2021-10-20 17:45 | PDOC.CMPRO ---
- If Service Date Differs Date of service: 10/20/21 Time of Service: 17:46 Care Management Progress Note S/O: Per provider, Fabiola is much improved. She required no O2 during the day and her sats were at 90% on room air. She continues to be treated for Covid but her hypoxemia has resolved. If she remains stable overnight, she likely will be discharged tomorrow. CM will continue to follow. A: Fabiola is a 76 year old female admitted to [facility] on 10/14/21 with RLL Pneumonia, COPD, hypoxemia. P: Fabiola will likely be discharged home with new RN, [employer] when medically cleared by provider. She will follow up with her PCP, community providers, and plan of care as prescribed. Fabiola will be transported home via RCT vs. ambulance when ready. CM will continue to follow.
[2021-10-20 19:34] VITALS: BP 102/60; PULSE 69; RESP 16; TEMP 36.6; O2SAT 90
[2021-10-20] MEDS: Atorvastatin 40 MG TAB 80 MG PO (19:38)
[2021-10-20] MEDS: ARIPiprazole 5 MG TAB PO (22:00)
[2021-10-20] MEDS: Melatonin 3 MG TAB 9 MG PO (22:01)
[2021-10-21] MEDS: Levothyroxine 150 MCG TAB PO (05:45)
[2021-10-21 07:30] VITALS: O2SAT 90
[2021-10-21] MEDS: Normal Saline Flush 10 ML SYR IVP (07:44)
[2021-10-21] MEDS: Polyethylene Glycol 3350 17 GM PACKET PO (07:44)
[2021-10-21] MEDS: QUEtiapine 25 MG TAB PO (07:45)
[2021-10-21] MEDS: Ascorbic Acid 500 MG TAB 1000 MG PO (07:45)
[2021-10-21] MEDS: Pantoprazole 40 MG TABCR PO (07:45)
[2021-10-21] MEDS: Cholecalciferol (Vitamin D3) 1,000 UNIT TAB 2000 UNITS PO (07:45)
[2021-10-21] MEDS: Aspirin E.C. 81 MG TABEC PO (07:45)
[2021-10-21] MEDS: Dexamethasone 4 MG TAB 6 MG PO (07:46)
[2021-10-21] MEDS: Apixaban 5 MG TAB PO (07:46)
[2021-10-21] MEDS: Budesonide/Formoterol 80/4.5 6.9 GM 60 PUFF INH IH (07:47)
[2021-10-21] MEDS: Tiotropium Bromide-Respimat 10 PUFF INH 2 PUFF IH (07:47)
[2021-10-21 07:51] LABS: Anion Gap 7.7 mmol/L (3-11); BUN 33 mg/dL (7-18); CO2 28.3 mmol/L (21.0-32.0); CREATININE 1.1 mg/dL (0.55-1.02); Calcium 8.6 mg/dL (8.5-10.1); Chloride 104 mmol/L (98-107); Estimated GFR 48.55 (mL/min/1.73m2); Glucose 95 mg/dL (74-106); Potassium 3.9 mmol/L (3.5-5.1); Sodium 140 mmol/L (136-145)
[2021-10-21 07:53] VITALS: BP 124/78; PULSE 68; RESP 18; TEMP 36.3; O2SAT 90
[2021-10-21 07:57] LABS: C-Reactive Protein < 0.05 mg/dL (0.0-0.3)
[2021-10-21 09:48] VITALS: PULSE 88; PULSE 95; RESP 18; O2SAT 92; O2SAT 97
--- NOTE | 2021-10-21 10:07 | DSE_ITS ---
Date of service: 10/21/21 Time of Service: 10:07 DS: Diagnosis Discharge Diagnosis (1) COVID-19: Start date: 10/21/21 Start time: 10:07 Status: Acute Asessment and Plan: Doing well. She is vaccinated. Received both COVID vaccinations prior to getting COVID. On admission she was requiring oxygen. Now at baseline. No oxygen requirement. Ambulatory without oxygen requirement[place] [facility] [place] She received decadron, rendesivir, Vitamin C and D while in the hospital. She wants to go home in smoke. Educated on staying away from the public and wearing a mask if in contact with the public until at least 7 th days. She denies SOB. (2) Hypoxemia: Start date: 10/21/21 Start time: 10:11 Asessment and Plan: as above, resolved (3) Bronchitis: Start date: 10/21/21 Start time: 10:11 Asessment and Plan: imaging with bronhioliolitis. Afebrile, no procalcitonin, ferritin normal, WBC normal. IS, acapella as above, resolved. (4) Pneumonia: Start date: 10/21/21 Start time: 10:11 Status: Ruled-out Asessment and Plan: treated as covid with bronchitis and copd exacerbation that has now been resolved (5) COPD (chronic obstructive pulmonary disease): Start date: 10/21/21 Start time: 10:13 Status: Chronic Asessment and Plan: She was treated as COVID with Bronchitis and Copd exacerbation discussed with Dr. Schaffer Discharge Plan Disposition Patient Disposition: HOME W/HOME HEALTH SERVICE Condition: Good Discharge Details Reason For Visit: RLL Pneumonia,COPD,Hypoxemia Admit Date/Time: 10/14/21 02:39 Admit Provider: Armen Maldonado Attending Provider: Armen Maldonado Primary Care Provider: Kathleen Azevedo Hospital Course Hospital Course: Patient admitted to [facility] with sudden onset dyspena worse than baseline. She was found to be COVID positive. Admitted to m/s for COVID, started on rendesivir, decadron, vitamin c, and vitamin d. She was inintially requiring oxygen. Imaging with concerns for pneumonia however imaging with bronhioliolitis. Afebrile, no procalcitonin, ferritin normal, WBC normal.IS, acapella held off on treating pneumonia and patinet symptoms improved. Her CRP has normalized. All labs are normal. She is on RA at baseline oxygen level. Exercise oximetery is normal. Therefore she is being discharged home. She will need to keep home until Oct 24. wear a mask if around others. Stay out of public places. Patient acknowledged this discussion. Home Meds and New Rx's Prescriptions: New quetiapine 25 mg Tablet 50 mg PO HS Qty: 20 RF: 0 ascorbic acid (vitamin C) [Vitamin C] 500 mg Tablet 1,000 mg PO BID Qty: 60 RF: 0 cholecalciferol (vitamin D3) 25 mcg (1,000 unit) Tablet 2,000 units PO DAILY Qty: 60 RF: 0 Continued ipratropium-albuterol 0.5 mg-3 mg(2.5 mg base)/3 mL Solution For Nebulization 3 ml UPD Q4H PRN PRN (Reason: shortness of breath or wheezing) Qty: 180 RF: 0 pantoprazole 40 mg Tablet,Delayed Release (Dr/Ec) 40 mg PO DAILY@0730 Qty: 30 RF: 0 sennosides [Senokot] 8.6 mg Tablet 8.6 mg PO BID Qty: 60 RF: 0 acetaminophen [Mapap Arthritis Pain] 650 mg Tablet Extended Release 650 mg PO BID RF: 0 ondansetron HCl [Zofran] 4 mg tablet 4 mg PO Q8H PRNQty: 20 RF: 0 levothyroxine 150 mcg tablet 150 mcg PO DAILY RF: 0 docusate sodium 100 mg capsule 100 mg PO BID PRN PRNRF: 0 Trelegy Ellipta 100-62.5-25 mcg blister with device 1 inh INHALATION DAILY RF: 0 Flovent HFA 220 mcg/actuation HFA aerosol inhaler 2 inh INHALATION BID RF: 0 polyethylene glycol 3350 17 gram Powder In Packet 17 g PO BID Qty: 0 RF: 0 aspirin 81 mg tablet,delayed release (DR/EC) 81 mg PO DAILY RF: 0 atorvastatin 80 mg tablet 80 mg PO DAILY RF: 0 Eliquis 5 mg tablet 5 mg PO BID Qty: 71 RF: 0 aripiprazole 5 mg tablet 5 mg PO HS RF: 0 Discharge Instructions Instructions: COVID-19 (Coronavirus Disease 2019) (DC) Additional Instructions: PER [facility]: Must quarantine until OCT 24. May return to regular activity on OCT 24 if has no fevers and is improving. Follow up with PCP in 1 week Stand Alone Forms: Nursing Discharge Form Referrals: Kathleen Azevedo [Primary Care Provider] - (We will call you on Saturday with foll ow up appointment with your PCP.) Activity:: Activity as Tolerated Equipment/Supplies:: No Equipment Needed Diet:: As Tolerated Discharge Orders Discharge Orders: Discharge Order (Routine); Ordered 10/21/21 Ordered By: Stefani rBothers Discharge Data Discharge Date/Time-TO BE ENTERED AT DEPARTURE: 10/21/21 11:25 DS: Summary Time Spent with Patient providing and/or coordinating discharge services: Less than 30 minutes Status at Discharge Functional status at discharge: independent ambulation Overall status at discharge: patient is back to baseline Mental Status: other Speech and Movement: speech and movement normal Mood: other Affect: other Exam Const General: cooperative (when she wants to be), comfortable, no acute distress and ill appearing chronically Nutritional Appearance: obese Orientation: alert, awake and oriented x3 Eyes Eyelids: eyelids normal Pupils: PERRL EOM: EOM intact bilaterally Neck Neck: normal visual inspection and no JVD Lymphatic: no lymphadenopathy noted Resp Effort & Inspection: normal respiratory effort and able to speak in complete sentences Auscultation: clear to auscultation bilaterally Cardio Jugular venous pressure: no JVD Rhythm: regular rhythm Heart Sounds: S1 normal GI Inspection: obesity Auscultation: normal bowel sounds General: No CVA tenderness and deferred Skin General skin exam: no rashes or lesions noted Neuro General: patient alert, patient awake and patient oriented x3 Cognition: abnormal cognition (multiple psych issues) Speech: speech normal Gait: normal gait Extrem General: normal to inspection, full ROM and pedal edema (+1 edema) bilaterally Psych Appearance: disheveled Mental Status: other Speech and Movement: speech and movement normal Mood: other Affect: other Insight: poor Judgment: poor DS: Data Vitals/I&O Vitals and I&O: Vital Signs Temperature 36.3 C L 10/21/21 07:53 Temperature Source Tympanic 10/21/21 07:53 Pulse 68 10/21/21 07:53 Pulse Rhythm Regular 10/21/21 07:30 Respiratory Rate 18 10/21/21 07:53 Respiratory Effort Non-Labored 10/21/21 07:30 Respiratory Depth Normal 10/21/21 07:30 Respiratory Pattern Normal 10/21/21 07:30 Blood Pressure 124/78 10/21/21 07:53 Blood Pressure Mean 69 10/14/21 03:01 Blood Pressure Position Supine 10/13/21 20:58 Pulse Oximetry 90 L 10/21/21 07:53 Oxygen Delivery Method Room Air 10/21/21 07:53 Oxygen Flow Rate 0 10/21/21 07:53 Pain Level 0 10/21/21 07:53 Comment 10/17/21 16:30 Intake & Output 10/20/21 10/20/21 10/21/21 11:59 23:59 11:59 Intake Total 500 / 1750 1250 / 1750 Output Total 200 / 850 650 / 850 Balance 300 / 900 600 / 900 Intake: IV 100 / 100 Oral 500 / 1650 1150 / 1650 Output: Urine 200 / 850 650 / 850 Other: Urine Color Pale Yellow Yellow Urine Appearance Clear Clear Clear Urine Odor None Normal Comment pt uses the toilet independently Patient is independent to the bathroom. Stool Size Small Stool Characteristics Soft Voiding Methods Toilet Toilet Toilet Data Completed and Pending Completed studies during hospitalization [Text1]: FINDINGS: Heart size is normal. The mediastinum is not widened. Lungs are clear. No infiltrates nor pleural effusions. IMPRESSION: No acute pulmon Exam(s) PROCEDURE INFORMATION: Exam: XR Chest Exam date and time: 10/13/2021 9:09 PM Age: 76 years old Clinical indication: Other: SOB TECHNIQUE: Imaging protocol: XR of the chest. Views: 2 views. COMPARISON: CT CHEST/ABD/PEL WO 09/19/2021 2:36 AM FINDINGS: Lungs: Unremarkable. No consolidation. Pulmonary vessels are not congested. Pleural spaces: Mild blunting noted in the costophrenic angles and posterior gutters. Negative for pneumothorax. Heart/Mediastinum: Unremarkable. No cardiomegaly. Bones/joints: Unremarkable. IMPRESSION: Mild bilateral pleural effusions or pleuroparenchymal scar. IMPRESSION: 1. No evidence of acute pulmonary emboli. No evidence of pulmonary infarction. 2. There is some infiltrate in the right lower lobe posterior basal segment as well as in the right middle lobe. There is mild right hilar adenopathy and mild subcarinal adenopathy.. 3. There are no pleural effusions. Exam(s) PROCEDURE INFORMATION: Exam: CTA Chest With Contrast Exam date and time: 10/14/2021 1:09 AM Age: 76 years old Clinical indication: Other: Hypoxic/sob; Patient HX: Prior pe TECHNIQUE: Imaging protocol: Computed tomographic angiography of the chest with contrast. 3D rendering (Not supervised by radiologist): MIP and/or 3D reconstructed images were created by the technologist. COMPARISON: CT CHEST PE CTA 09/16/2021 11:06 AM FINDINGS: Pulmonary arteries: Normal. No pulmonary emboli. Aorta: Unremarkable. No aortic aneurysm. No aortic dissection. Lungs: Centrilobular emphysema noted, upper lobe predominant. Peribronchial consolidations present in the lower lobes. Peripheral tree-in-bud opacity and patchy areas of consolidation are noted, greatest in the right lower lobe. Pleural spaces: Unremarkable. No pneumothorax. No pleural effusion. Heart: Unremarkable. No cardiomegaly. No pericardial effusion. Lymph nodes: Mild mediastinal and hilar lymphadenopathy. Bones/joints: Thoracic kyphosis is exaggerated. Disc space narrowing and osteophyte formation noted at multiple levels. 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 Negative for compression fracture. Soft tissues: Unremarkable. IMPRESSION: 1. Negative for pulmonary embolism. 2. Centrilobular emphysema. 3. Mild mediastinal lymphadenopathy. 4. Peripheral areas of bronchiolitis and pneumonia, greatest in the right lower lobe. Labs on day of discharge: Labs from last 24 hours 10/21/21 06:50 Sodium 140 Potassium 3.9 Chloride 104 Carbon Dioxide 28.3 Anion Gap 7.7 BUN 33 H Creatinine 1.1 H Estimated GFR/1.73 m2 48.55 Glucose 95 Calcium 8.6 C-Reactive Protein < 0.05 [facility] Active Problem List Respiratory failure with hypoxia (Acute) COVID-19 (Acute) COPD (chronic obstructive pulmonary disease) (Chronic) Low back pain (Acute) Noncompliance with medication regimen (Acute) Pain, joint, knee, right (Acute) Fall (Acute) Blunt head trauma (Acute) Blunt injury of back (Acute) Fall (Acute) Contusion (Acute) Auditory hallucination (Acute) Fall (Acute) Acute exacerbation of chronic obstructive pulmonary disease (COPD) (Acute) Hallucinations (Chronic) Discharge planning issues (Acute) DVT prophylaxis (Acute) Community acquired pneumonia (Acute) Abdominal pain (Acute) Vertigo (Acute) Diverticulosis (Chronic) Cholelithiasis (Chronic) Nausea vomiting and diarrhea (Acute) Unsteady gait when walking (Acute) Constipation (Chronic) Memory impairment (Chronic) 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) Osteoarthritis of right knee (Chronic) Medical History Aneurysm of infrarenal abdominal aorta Asthma exacerbation Bronchitis CKD (chronic kidney disease) stage 3, GFR 30-59 ml/min COPD (chronic obstructive pulmonary disease) COPD exacerbation Failure to thrive in adult Fracture of both ankles Hearing loss History of blood transfusion Hx of hyperlipidemia Hypertension Hypothyroidism Hypoxemia Non-insulin dependent diabetes mellitus Obesity Pulmonary embolism Seborrheic keratosis Smoker Surgical History History of bilateral tubal ligation History of hernia repair Family History Father Diabetes Social History Smoking/Tobacco Use Status: Current every day Tobacco Type: cigarettes Years smoked: 15 Tobacco: How many years used: 15 Counseling given: provider counseling and support medications Smoking risk assessment performed?: Yes Alcohol Intake: never Drug use: Never Substance use type: does not use Household members: none Housing: apartment Number of Children: 3 number of grandchildren: 1 What is your relationship status?: Panel score (0-1 are the most socially isolated patients): 0 What type of physical activity do you participate in: walking Seatbelt use: always Do you feel safe at home: Yes Do you feel safe in your relationship?: Yes
--- NOTE | 2021-10-21 10:20 | PDOC.CMDIS ---
- If Service Date Differs Date of service: 10/21/21 Time of Service: 10:20 LACE Index Scoring Tool - Questions: Length of Stay (in days): 7 - 13 Acuity (Admit via E.D.?): Yes Comorbidities: Diabetes w/o Complication, Chronic Pulmonary Disease, Liver or Renal Disease E.D. Visits: 9 - Answers: Total Score: 17 Risk of Readmission: High Risk Care Management Discharge Reason for Hospitalization: RLL [place], COPD, Hypoxemia. Discharge Plan: Fabiola will be discharged home with no new services. She will follow up with her PCP, community providers, and plan of care as prescribed. Fabiola will be transported home via ambulance when ready, due to Covid status. Patient/Family Education Needs: Review of discharge instructions, including limitations, medications, and follow up plan of care; discuss Ask Me Three and self-management.
--- NOTE | 2021-10-23 13:26 | NUR.NOTE ---
Made patient a follow up appointment with PCP [facility] for 11/08/21 @ 10:15am. Tried calling patient there was no answer could not leave a message the mail box was full.Nursing Note:
--- NOTE | 2021-12-21 16:22 | PGE_ITS ---
Date of Service Date of service: 10/19/21 Time of Service: 16:22 Assessment and Plan Assessment and plan (1) COVID-19: Status: Acute Assessment and plan: Positive on admission. continue rendesivier, dexamethasone, melatonin, vitamin c and d finally able to wean oxygen, and now down to 2 l nc. CRP continues to trend downwards, labs all stable or improving. telemetry discontinued (2) Hypoxemia: Assessment and plan: Patient is requiring oxygen presently with no long- term use of oxygen at home; weaning down to 2 liters, continue to wean off (3) Bronchitis: Assessment and plan: imaging with bronhioliolitis. Afebrile, no procalcitonin, ferritin normal, WBC normal. Will stop all antibiotcs as this time IS, acapella and treat for viral infection. This is likely vs pneumonia especially in setting of lack of no fever, nonproductive cough and white count. (4) Pneumonia: Status: Ruled-out Assessment and plan: as above treat as covid with bronchitis and copd exacerbation Qualifiers: Laterality: right Lung location: lower lobe of lung Pneumonia type: due to unspecified organism Qualified Code(s): J18.9 - Pneumonia, unspecified organism (5) COPD (chronic obstructive pulmonary disease): Status: Chronic Assessment and plan: Slightly exacerbated on dexamethasone, inhalers, updrafts, as above. Continue proning and sitting up right as much as possible Qualifiers: COPD type: emphysema Emphysema type: centrilobular Qualified Code(s): J43.2 - Centrilobular emphysema (6) DVT prophylaxis: Status: Acute Assessment and plan: apixaban 5 mg po BID (7) Discharge planning issues: Status: Acute Assessment and plan: Home when medically ready continue to wean oxygen discussed with Dr. Blanton Late entry Subjective Subjective Patient reports: no new complaints, feels better, tolerating liquids well, tolerating a regular diet and afebrile Interval history since last seen: weaning oxygen. down to 2 liters nc. Exam Const General: cooperative (when she wants to be), comfortable, no acute distress and ill appearing chronically Nutritional Appearance: obese Orientation: alert, awake and oriented x3 Eyes Eyelids: eyelids normal Pupils: PERRL EOM: EOM intact bilaterally Neck Neck: normal visual inspection and no JVD Lymphatic: no lymphadenopathy noted Resp Effort & Inspection: normal respiratory effort, able to speak in complete sentences, cough (nonproduction) and other (Unable to lie flat SOB ith excertion) Auscultation: clear to auscultation bilaterally Cardio Jugular venous pressure: no JVD Rhythm: regular rhythm Heart Sounds: S1 normal GI Inspection: obesity Auscultation: normal bowel sounds General: No CVA tenderness and deferred Skin General skin exam: no rashes or lesions noted Neuro General: patient alert, patient awake and patient oriented x3 Cognition: abnormal cognition (multiple psych issues) Speech: speech normal Gait: normal gait Extrem General: normal to inspection, full ROM and pedal edema (+1 edema) bilaterally Psych Appearance: disheveled Insight: poor Judgment: poor Objective Last Vital Signs Temp 36.3 C L 10/21/21 07:53 Pulse 68 10/21/21 07:53 Resp 18 10/21/21 07:53 BP 124/78 10/21/21 07:53 Pulse Ox 90 L 10/21/21 07:53
== END 2021-10-21 11:25 | disposition home health service (06) | DRG 177 ==
LOC: ER 10-14 02:38 → MS 10-14 03:44
PROVIDERS: Nurse Practitioner Acute Care; Nurse Practitioner Family; Admitting Provider Family Medicine; Emergency Provider Emergency Medicine; PCP Nurse Practitioner; Visit Provider Family Medicine
DX: U07.1 COVID-19; J96.01 Acute respiratory failure with hypoxia; J20.8 Acute bronchitis due to other specified organisms; F17.210 Nicotine dependence, cigarettes, uncomplicated; J43.2 Centrilobular emphysema; K57.90 Diverticulosis of intestine, part unspecified, without perforation or abscess without bleeding; K59.09 Other constipation; K80.20 Calculus of gallbladder without cholecystitis without obstruction; R26.81 Unsteadiness on feet; E66.9 Obesity, unspecified; I12.9 Hypertensive chronic kidney disease with stage 1 through stage 4 chronic kidney disease, or unspecified chronic kidney disease; N18.30 Chronic kidney disease, stage 3 unspecified; E78.5 Hyperlipidemia, unspecified; E03.9 Hypothyroidism, unspecified; E11.9 Type 2 diabetes mellitus without complications; I71.4 Abdominal aortic aneurysm, without rupture; Z86.711 Personal history of pulmonary embolism; Z68.39 Body mass index [BMI] 39.0-39.9, adult; Z79.01 Long term (current) use of anticoagulants
CPT/HCPCS: 36415; 71275; 80048; 80053; 84145; 87635; 93005; 94618; 94640; 96365; 99285; 71046; 82728; 83735; 83880; 84484; 85025; 86140; 93010; 94667; 94668; 99223; 99232; 99233; 99238; J0713; J3490; J7512; J7613; J7620; J8540

== ENCOUNTER 2021-12-05 00:05 | Observation (INO) | payer OTHER, MEDICAID, SELFPAY ==
[2021-12-05] VITALS (21 sets, daily range): BP systolic 108–150; BP diastolic 60–81; PULSE 84–97; RESP 2–22; TEMP 36–37.2; O2SAT 88–98
--- NOTE | 2021-12-05 | RT.EKG_ITS ---
APPROVED REPORT Exam: Resting ECG Reason for Exam: shortness of breath Patient Location: E HR:85 bpm ECG Measurements Heart Rate 85 AXIS OR 140 P 68 QRSd 90 QRS -37 QT 402 T 57 QTc 478 Conclusion Sinus rhythm...normal P axis, V-rate 60- 99 Left axis deviation...QRS axis (-30,-90) Low voltage, precordial leads...precordial leads <1.0mV motion artifact, no acute ischemic findings
--- NOTE | 2021-12-05 00:28 | W.ED.GENAD ---
Discharge Plan Disposition Patient Disposition: [facility] INPATIENT Condition: Stable Discharge Details Clinical Impression: Respiratory failure with hypoxia, Cellulitis Admit Date/Time: 12/05/21 02:57 Admit Provider: Armen Matson Attending Provider: Armen Matson Primary Care Provider: Kathleen Azevedo ED Provider: Matthew Trinh Medical Decision Making 76 yo female with history of copd, prior pe on eliquis, who had covid a month ago comes in with complaints of right leg pain and swelling. She states it started early Saturday morning. She states she also feels short of breath but is not sure if this is changed from her baseline due to her copd. She denies fevers, cough, chest pain. She has diffuse wheezing in both lungs on exam, no jvd, and her distal right lower leg from mid tibia down is swollen with erythema and warmth and a 2cm circular blue area on the anterior leg in the middle of the erythema that seems to be where she has the most pain. Normal distal sensation and cap refill. Suspect cellulitis vs hematoma though no falls, has a . She is hypoxic to 88% despite 2L NC and given lung exam findings will treat with solumedrol and duoneb and reasess. pt stable though still requiring o2, xray read as possible infiltrates so levofloxacin ordered for this and vaco for the possible cellulitis, will discuss with hospitalist about admission Differential Diagnosis Differential Diagnosis: cellulitis, dvt, copd Medical Records Medical records reviewed: Yes I reviewed the patient's medical records. Imaging Data Radiologic Study: Attestation: I personally reviewed and interpreted this imaging study as follows: Imaging: X-Ray Radiologist's impression: IMPRESSION: Patchy pulmonary opacities at the lung bases may reflect atelectasis versus pneumonia. Radiologic Study #2: Attestation: I personally reviewed and interpreted this imaging study as follows: Imaging: X-Ray Radiologist's impression: PROCEDURE INFORMATION: Exam: XR Right Tibia and Fibula Exam date and time: 12/05/2021 1:58 AM Age: 76 years old Clinical indication: Pain; Ankle; Right TECHNIQUE: Imaging protocol: XR Right tibia and fibula. Views: 2 views. COMPARISON: CR XR tib/fib RT 03/24/2019 1:16 PM FINDINGS: Bones/joints: Normal. Soft tissues: Soft tissue calcification noted just superior to the calcaneus of incidental note IMPRESSION: No acute findings Lab Data Lab results reviewed: Yes I reviewed the patient's lab results. ECG Data Attestation: I personally reviewed and interpreted this ECG (s) as follows: Prior ECG tracings: available for review Interpretation: motion artifact, sinus rhythm, rate of 85, no acute st t wave ischemic findings HPI General Mode of arrival: EMS. Date/Time Provider Initiated Documentation: 12/05/21 00:16. Limitations to Documentation: no limitations. Information obtained by: patient. History of Present Illness 76 year old F presents to the emergency department with the chief complaint of right leg pain and swelling, described as moderate, and is localized to the right and lower extremity. Patient reports no radiation. Patient started experiencing this day(s) (1) and it has been constant. No relieving factors improve symptom(s), No exacerbating factors reported . Patient notes shortness of breath. Patient did receive the following treatments prior to arrival, none Related Data Home Medications Medication Instructions Recorded Confirmed aspirin 81 mg PO DAILY 09/22/20 12/05/21 ipratropium-albuterol 3 ml UPD Q4H PRN PRN #180 ml 10/07/20 12/05/21 pantoprazole 40 mg PO DAILY@0730 #30 tab 10/07/20 12/05/21 sennosides [Senokot] 8.6 mg PO BID #60 tab 10/07/20 12/05/21 acetaminophen [Mapap Arthritis 650 mg PO BID 01/01/21 12/05/21 Pain] atorvastatin 80 mg PO DAILY 06/15/21 10/13/21 Eliquis 5 mg PO BID #71 tab 06/16/21 12/05/21 ondansetron HCl [Zofran] 4 mg PO Q8H PRN #20 tab 07/23/21 12/05/21 Flovent HFA 2 inh INHALATION BID 08/30/21 12/05/21 Trelegy Ellipta 1 inh INHALATION DAILY 08/30/21 12/05/21 docusate sodium 100 mg PO BID PRN PRN 08/30/21 12/05/21 levothyroxine 150 mcg PO DAILY 08/30/21 12/05/21 polyethylene glycol 3350 17 g PO BID #0 ea 09/05/21 12/05/21 aripiprazole 5 mg PO HS 10/16/21 12/05/21 ascorbic acid (vitamin C) [Vitamin 1,000 mg PO BID #60 tab 10/21/21 12/05/21 C] cholecalciferol (vitamin D3) 2,000 units PO DAILY #60 tab 10/21/21 12/05/21 quetiapine 50 mg PO HS #20 tab 10/21/21 12/05/21 Previous Rx's Medication Instructions Recorded ipratropium-albuterol 3 ml UPD Q4H PRN PRN #180 ml 10/07/20 pantoprazole 40 mg PO DAILY@0730 #30 tab 10/07/20 sennosides [Senokot] 8.6 mg PO BID #60 tab 10/07/20 Eliquis 5 mg PO BID #71 tab 06/16/21 ondansetron HCl [Zofran] 4 mg PO Q8H PRN #20 tab 07/23/21 polyethylene glycol 3350 17 g PO BID #0 ea 09/05/21 ascorbic acid (vitamin C) [Vitamin 1,000 mg PO BID #60 tab 10/21/21 C] cholecalciferol (vitamin D3) 2,000 units PO DAILY #60 tab 10/21/21 quetiapine 50 mg PO HS #20 tab 10/21/21 Allergies Allergy/AdvReac Type Severity Reaction Status Date / Time Penicillins Allergy Intermediate Swelling/Ed Verified 09/19/21 01:34 demond Bees Allergy Uncoded 09/19/21 01:34 General Stated Complaint: SOB KAYA: 3 Review of Systems All systems reviewed & are unremarkable except as noted in HPI and below Constitutional Constitutional: Denies chills and Denies fever(s) Cardiovascular Cardiovascular: Denies chest pain Respiratory Respiratory: Denies cough Gastrointestinal Gastrointestinal: Denies abdominal pain, Denies nausea and Denies vomiting Musculoskeletal Musculoskeletal: Denies joint swelling Psychiatric Psychiatric: Denies depression PFSH All Active Problems (Updated 12/05/21 @ 06:04 by Matthew Trinh MD) Cellulitis (Acute) Respiratory failure with hypoxia (Acute) COVID-19 (Acute) COPD (chronic obstructive pulmonary disease) (Chronic) Low back pain (Acute) Noncompliance with medication regimen (Acute) Pain, joint, knee, right (Acute) Fall (Acute) Blunt head trauma (Acute) Blunt injury of back (Acute) Fall (Acute) Contusion (Acute) Auditory hallucination (Acute) Fall (Acute) Acute exacerbation of chronic obstructive pulmonary disease (COPD) (Acute) Hallucinations (Chronic) Discharge planning issues (Acute) DVT prophylaxis (Acute) Community acquired pneumonia (Acute) Abdominal pain (Acute) Vertigo (Acute) Diverticulosis (Chronic) Cholelithiasis (Chronic) Nausea vomiting and diarrhea (Acute) Unsteady gait when walking (Acute) Constipation (Chronic) Memory impairment (Chronic) 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) Osteoarthritis of right knee (Chronic) Medical History Aneurysm of infrarenal abdominal aorta Asthma exacerbation Bronchitis CKD (chronic kidney disease) stage 3, GFR 30-59 ml/min COPD (chronic obstructive pulmonary disease) COPD exacerbation Failure to thrive in adult Fracture of both ankles Hearing loss History of blood transfusion Hx of hyperlipidemia Hypertension Hypothyroidism Hypoxemia Non-insulin dependent diabetes mellitus Obesity Pulmonary embolism Seborrheic keratosis Smoker Surgical History History of bilateral tubal ligation History of hernia repair Family History Father Diabetes Social History Smoking/Tobacco Use Status: Current every day Tobacco Type: cigarettes Years smoked: 15 Tobacco: How many years used: 15 Counseling given: provider counseling and support medications Smoking risk assessment performed?: Yes Alcohol Intake: never Drug use: Never Substance use type: does not use Household members: none Housing: apartment Number of Children: 3 number of grandchildren: 1 What is your relationship status?: Panel score (0-1 are the most socially isolated patients): 0 What type of physical activity do you participate in: walking Seatbelt use: always Do you feel safe at home: Yes Do you feel safe in your relationship?: Yes Exam Const General: no acute distress Orientation: alert HENMT Head: normal to inspection Ears: external ears normal General nose exam: external nose normal Mouth: moist mucous membranes Eyes General: appearance normal, both eyes and all related structures Neck Neck: normal visual inspection Resp Effort & Inspection: no stridor Cardio Rate: regular rate Skin General skin exam: erythema Neuro General: patient alert and patient oriented x3 Extrem General: capillary refill normal Psych Mental Status: mental status grossly normal Course Vital Signs Vital signs: Vital Signs Temperature 36.5 C 12/05/21 00:12 Pulse 97 H 12/05/21 00:12 Respiratory Rate 18 12/05/21 00:12 Blood Pressure 150/71 H 12/05/21 00:12 Pulse Oximetry 88 L 12/05/21 00:12 Temperature 36.5 C 12/05/21 00:12 Temperature Source Tympanic 12/05/21 00:12 Pulse 97 H 12/05/21 00:12 Respiratory Rate 18 12/05/21 00:12 Respiratory Effort Labored 12/05/21 00:15 Respiratory Depth Normal 12/05/21 00:15 Respiratory Pattern Normal 12/05/21 00:15 Blood Pressure 150/71 H 12/05/21 00:12 Blood Pressure Position Supine 12/05/21 00:12 Pulse Oximetry 88 L 12/05/21 00:12 Oxygen Delivery Method Room Air 12/05/21 00:12 Oxygen Flow Rate 0 12/05/21 00:12 Pain Level 8 12/05/21 00:12 Lab/Test Results Lab/Test Results: 12/05/21 00:05 Blood Blood Culture - Pending 12/05/21 00:05 Blood Blood Culture - Pending
--- NOTE | 2021-12-05 00:45 | DI.RAD_ITS ---
Exam(s) XR PORTABLE CHEST AP EXAM: XR PORTABLE CHEST AP CLINICAL HISTORY: shortness of breath. TECHNIQUE: 2D digital imaging was performed. COMPARISON: CR,XR XR CHEST 2V PA LATERAL from 10/13/2021 FINDINGS: Heart size is upper normal. The mediastinum is not widened. Left lung is clear. Mild infiltrate noted in the right lung base. No pleural effusions IMPRESSION: Mild infiltrate in the right lung base. Appropriate follow-up recommended. DATA REPOSITORY: RADIATION DOSE DELIVERED: All CT scans at this facility use at least one of these dose optimization techniques: automated exposure control; mA and/or kV adjustment per patient size (includes targeted e xams where dose is matched to clinical indication); or iterative reconstruction.
[2021-12-05 01:22] LABS: Source Nasal/Nares
[2021-12-05 01:23] LABS: BE (Venous) 6 mmol/L (-2-3); HCO3 (Venous) 32 mmol/L (23-28); O2 Sat (Venous) 51 %; TCO2 (Venous) 30 mmol/L (24-29); pCO2 (Venous) 59 mmHg (41-51); pH (Venous) 7.34 (7.31-7.41); pO2 (Venous) 29 mmHg
[2021-12-05 01:24] LABS: Abs Immature Grans 0.02 10^3/uL (0.0-0.06); Absolute Basophil Count 0.04 10^3/uL (0.0-0.2); Absolute Eosinophil Count 0.17 10^3/uL (0.0-0.7); Absolute Lymphocyte Count 1.65 10^3/uL (1.2-3.4); Absolute Monocyte Count 0.43 10^3/uL (0.1-0.8); Absolute Neutrophil Count 4.25 10^3/uL (1.2-6.7); Basophils % 0.6; Eosinophils % 2.6; HCT 39.1 % (36.0-46.0); HGB 12.1 g/dL (11.2-15.7); Immature Grans % 0.3; Lymphocytes % 25.2; MCH 28.1 pg (27.0-33.0); MCHC 30.9 % (32.0-36.0); MCV 90.7 fL (80-95); MPV 10.4 fL (8.0-11.0); Monocytes % 6.6; Neutrophils % 64.7; Nucleated RBC 0 %; Platelet Count 209 10^3/uL (130-400); RBC 4.31 10^6/uL (3.93-5.22); RDW-SD 50.3 fL; WBC 6.56 10^3/uL (4.4-10.8)
--- NOTE | 2021-12-05 01:30 | DI.VRAD_ITS ---
PROCEDURE INFORMATION: Exam: XR Chest Exam date and time: 12/05/2021 12:56 AM Age: 76 years old Clinical indication: Shortness of breath TECHNIQUE: Imaging protocol: XR of the chest. Views: 1 view. COMPARISON: CR XR CHEST 2V PA LATERAL 10/13/2021 10:09 PM FINDINGS: Lungs: Patchy pulmonary opacities at the lung bases may reflect atelectasis versus pneumonia. Pleural spaces: Unremarkable. No pleural effusion. No pneumothorax. Heart/Mediastinum: Unremarkable. No cardiomegaly. Bones/joints: Unremarkable. IMPRESSION: Patchy pulmonary opacities at the lung bases may reflect atelectasis versus pneumonia. Dictated and Authenticated by: Doe Damian MD. Ordering:KING Castro MD
[2021-12-05] MEDS: Albuterol/Ipratropium 3 ML UPD VIAL UPD ×4 (01:32→20:44)
[2021-12-05] MEDS: methylPREDNISolone SUCC 125 MG VIAL IVP (01:32)
[2021-12-05 01:42] LABS: Troponin I < 50 ng/L (<or=60)
--- NOTE | 2021-12-05 01:45 | DI.RAD_ITS ---
Exam(s) XR TIB/FIB RT EXAM: XR TIB/FIB RT CLINICAL HISTORY: pain. TECHNIQUE: 2D digital imaging was performed. COMPARISON: No exams were available for comparison FINDINGS: No evidence of acute fracture or dislocation. Some soft tissue swelling around the ankle is noted. No osseous lesions. IMPRESSION: DATA REPOSITORY: RADIATION DOSE DELIVERED:
[2021-12-05 01:48] LABS: ALT 25 U/L (14-59); AST 34 U/L (15-37); Albumin 3.6 g/dL (3.4-5.0); Alkaline Phosphatase 95 U/L (46-116); Anion Gap 6.1 mmol/L (3-11); BUN 27 mg/dL (7-18); Bilirubin, Total 0.4 mg/dL (0.2-1.0); CO2 30.9 mmol/L (21.0-32.0); CREATININE 1.2 mg/dL (0.55-1.02); Calcium 9.2 mg/dL (8.5-10.1); Chloride 102 mmol/L (98-107); Creatine Kinase 403 U/L (26-192); Estimated GFR 43.91 (mL/min/1.73m2); Glucose 92 mg/dL (74-106); Magnesium 1.9 mg/dL (1.8-2.4); NT-proBNP 165 pg/mL (<300); Potassium 4.1 mmol/L (3.5-5.1); Sodium 139 mmol/L (136-145); TSH (W/Ref FT4) 17.25 uIU/mL (0.36-3.74); Total Protein 7.3 g/dL (6.4-8.2)
[2021-12-05] MEDS: levoFLOXacin 750 MG/150 ML BAG 100 MG IVPB (02:01)
[2021-12-05 02:03] LABS: COVID-19 PCR Negative (Negative)
[2021-12-05 02:06] LABS: FREE T4 1.09 ng/dL (0.76-1.46)
--- NOTE | 2021-12-05 02:20 | DI.VRAD_ITS ---
PROCEDURE INFORMATION: Exam: XR Right Tibia and Fibula Exam date and time: 12/05/2021 1:58 AM Age: 76 years old Clinical indication: Pain; Ankle; Right TECHNIQUE: Imaging protocol: XR Right tibia and fibula. Views: 2 views. COMPARISON: CR XR tib/fib RT 03/24/2019 1:16 PM FINDINGS: Bones/joints: Normal. Soft tissues: Soft tissue calcification noted just superior to the calcaneus of incidental note IMPRESSION: No acute findings Dictated and Authenticated by: Doe Damian MD. Ordering:KING Castro MD
--- NOTE | 2021-12-05 02:28 | W.PM.HP.N ---
Date of service: 12/05/21 Time of Service: 02:28 Assessment and Plan Assessment and plan (1) Cellulitis: Status: Acute Assessment and plan: Cellulitis of leg. The central discoloration is atypical, not sure what significance attaches to this, but will continue treatment with Vanco for now. Does not appear to be an abcess. I do note slight elevation CPK, clinically this is not a myofasciitis, and I further note prior slight elevation in CPKs, unattached to any hospital visits, so there may be some underlying and incidental condition (note hypothyroid, this may be the issue). Clinically this does not at all look like DVT, and patient already on DOAC in any case (see below). As to COPD (and question pneumonia) will continue with steroids, updrafts and Levaquin (Levaquin may prove to suitable monotherapy, for both skin and lung, but would favor continuing Vanco until status of former is clear). 1. Cellulitis: Vanco 2. COPD: steroids, updrafts, Levaquin 3. Hypothyroid: question non-compliance. Resume usual dose 125 4. DOAC: this is confirmed on med list from PCP and admission 10/08 references PE. Will CPM Reviewed ADs, requests Full Code. History of Present Illness History of Present Illness Chief Complaint: leg pain, cough, SOB Narrative: 76 female smoker -- comes in tonight with one day of pain and redness RLE, as well as one day of dry cough and SOB. In ER initial findings of note for absence of fever, diffuse wheeze and erythematous rash with central blueish discoloration right gonzales. Labs of note for white count 6,5, VBG 7.34, pCO2 59 (approx baseline), CPK 403, TSH 17.2; CXR basilar atelectasis vs pneumonia (to my eye on right), negative tib/fib film; neg trop and EKG. Patient was given Vanco and Levaquin, along with Solumedrol and updraft. I was asked to evaluate for admission. Patient denies injury to leg. States SOB is unchanged since arrival. No CP. Review of Systems All systems reviewed & are unremarkable except as noted in HPI and below PFSH All Active Problems (Updated 12/05/21 @ 02:43 by Armen Matson MD) Cellulitis (Acute) Respiratory failure with hypoxia (Acute) COVID-19 (Acute) COPD (chronic obstructive pulmonary disease) (Chronic) Low back pain (Acute) Noncompliance with medication regimen (Acute) Pain, joint, knee, right (Acute) Fall (Acute) Blunt head trauma (Acute) Blunt injury of back (Acute) Fall (Acute) Contusion (Acute) Auditory hallucination (Acute) Fall (Acute) Acute exacerbation of chronic obstructive pulmonary disease (COPD) (Acute) Hallucinations (Chronic) Discharge planning issues (Acute) DVT prophylaxis (Acute) Community acquired pneumonia (Acute) Abdominal pain (Acute) Vertigo (Acute) Diverticulosis (Chronic) Cholelithiasis (Chronic) Nausea vomiting and diarrhea (Acute) Unsteady gait when walking (Acute) Constipation (Chronic) Memory impairment (Chronic) 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) Osteoarthritis of right knee (Chronic) Medical History Aneurysm of infrarenal abdominal aorta Asthma exacerbation Bronchitis CKD (chronic kidney disease) stage 3, GFR 30-59 ml/min COPD (chronic obstructive pulmonary disease) COPD exacerbation Failure to thrive in adult Fracture of both ankles Hearing loss History of blood transfusion Hx of hyperlipidemia Hypertension Hypothyroidism Hypoxemia Non-insulin dependent diabetes mellitus Obesity Pulmonary embolism Seborrheic keratosis Smoker Surgical History History of bilateral tubal ligation History of hernia repair Family History Father Diabetes Social History Smoking/Tobacco Use Status: Current every day Tobacco Type: cigarettes Years smoked: 15 Tobacco: How many years used: 15 Counseling given: provider counseling and support medications Smoking risk assessment performed?: Yes Alcohol Intake: never Drug use: Never Substance use type: does not use Household members: none Housing: apartment Number of Children: 3 number of grandchildren: 1 What is your relationship status?: Panel score (0-1 are the most socially isolated patients): 0 What type of physical activity do you participate in: walking Seatbelt use: always Do you feel safe at home: Yes Do you feel safe in your relationship?: Yes Meds Allergies and Home Medications Allergies Allergy/AdvReac Type Severity Reaction Status Date / Time Penicillins Allergy Intermediate Swelling/Ed Verified 09/19/21 01:34 demond Bees Allergy Uncoded 09/19/21 01:34 Home Medications Medication Instructions Recorded Confirmed Type aspirin 81 mg PO DAILY 09/22/20 10/13/21 History ipratropium-albuterol 3 ml UPD Q4H PRN PRN #180 ml 10/07/20 10/13/21 Rx pantoprazole 40 mg PO DAILY@0730 #30 tab 10/07/20 10/13/21 Rx sennosides [Senokot] 8.6 mg PO BID #60 tab 10/07/20 10/13/21 Rx acetaminophen [Mapap Arthritis 650 mg PO BID 01/01/21 10/13/21 History Pain] atorvastatin 80 mg PO DAILY 06/15/21 10/13/21 History Eliquis 5 mg PO BID #71 tab 06/16/21 10/13/21 Rx ondansetron HCl [Zofran] 4 mg PO Q8H PRN #20 tab 07/23/21 10/13/21 Rx Flovent HFA 2 inh INHALATION BID 08/30/21 10/13/21 History Trelegy Ellipta 1 inh INHALATION DAILY 08/30/21 10/13/21 History docusate sodium 100 mg PO BID PRN PRN 08/30/21 10/13/21 History levothyroxine 150 mcg PO DAILY 08/30/21 10/13/21 History polyethylene glycol 3350 17 g PO BID #0 ea 09/05/21 10/13/21 Rx aripiprazole 5 mg PO HS 10/16/21 10/16/21 History ascorbic acid (vitamin C) [Vitamin 1,000 mg PO BID #60 tab 10/21/21 Rx C] cholecalciferol (vitamin D3) 2,000 units PO DAILY #60 tab 10/21/21 Rx quetiapine 50 mg PO HS #20 tab 10/21/21 Rx Exam Narrative Exam Narrative: 125/71, 84, 36.5, 18, 98% RA. HEENT atraumatic; neck supple; lungs diffuse coarse wheeze; heart RRR; abdomen soft and NT; extremities approx 10 cm area of pretibial erythema right lower leg, warm and quite tender, with approx 3 cm area of slightly indurated blueish discoloration at center, which is not fluctuant, and no visible breach in skin; neuro Ox3, lucid, moves all 4s Results Labs Result diagrams: 12/05/21 01:10 12/05/21 01:10 Labs: Laboratory Results - last 24 hr 12/05/21 12/05/21 12/05/21 01:10 01:10 01:10 WBC RBC Hgb Hct MCV MCH MCHC RDW Plt Count MPV Immature Gran % Neutrophils % Lymphocytes % Monocytes % Eosinophils % Basophils % Nucleated RBC % Absolute Neutrophils Absolute Lymphocytes Absolute Monocytes Absolute Eosinophils Absolute Basophils VBG pH 7.34 VBG pCO2 59 H VBG pO2 29 VBG HCO3 32 H VBG Total CO2 30 H VBG O2 Saturation 51 VBG Base Excess 6 H Sodium 139 Potassium 4.1 Chloride 102 Carbon Dioxide 30.9 Anion Gap 6.1 BUN 27 H Creatinine 1.2 H Estimated GFR/1.73 m2 43.91 Glucose 92 Calcium 9.2 Magnesium 1.9 Total Bilirubin 0.4 AST 34 ALT 25 Alkaline Phosphatase 95 Creatine Kinase 403 H Troponin I < 50 NT-Pro-B Natriuret Pep 165 Total Protein 7.3 Albumin 3.6 TSH 17.25 H Free T4 1.09 COVID-19 Source SARS-CoV-2 (PCR) 12/05/21 12/05/21 01:10 01:15 WBC 6.56 RBC 4.31 Hgb 12.1 Hct 39.1 MCV 90.7 MCH 28.1 MCHC 30.9 L RDW 15.0 H Plt Count 209 MPV 10.4 Immature Gran % 0.3 Neutrophils % 64.7 Lymphocytes % 25.2 Monocytes % 6.6 Eosinophils % 2.6 Basophils % 0.6 Nucleated RBC % 0 Absolute Neutrophils 4.25 Absolute Lymphocytes 1.65 Absolute Monocytes 0.43 Absolute Eosinophils 0.17 Absolute Basophils 0.04 VBG pH VBG pCO2 VBG pO2 VBG HCO3 VBG Total CO2 VBG O2 Saturation VBG Base Excess Sodium Potassium Chloride Carbon Dioxide Anion Gap BUN Creatinine Estimated GFR/1.73 m2 Glucose Calcium Magnesium Total Bilirubin AST ALT Alkaline Phosphatase Creatine Kinase Troponin I NT-Pro-B Natriuret Pep Total Protein Albumin TSH Free T4 COVID-19 Source Nasal/Nares SARS-CoV-2 (PCR) Negative Last Vital Signs Temp 36.5 C 12/05/21 00:12 Pulse 84 12/05/21 00:15 Resp 18 12/05/21 00:12 BP 125/71 12/05/21 00:15 Pulse Ox 98 12/05/21 01:30
[2021-12-05 03:34] LABS: Troponin I < 50 ng/L (<or=60)
[2021-12-05] MEDS: Levothyroxine 50 MCG TAB (05:27)
[2021-12-05] MEDS: Levothyroxine 100 MCG TAB (05:28)
[2021-12-05] MEDS: Polyethylene Glycol 3350 17 GM PACKET PO ×2 (08:19→20:43)
[2021-12-05] MEDS: Acetaminophen 325 MG TAB 650 MG PO ×2 (08:19→20:43)
[2021-12-05] MEDS: Senna TAB 1 TAB PO ×2 (08:20→20:43)
[2021-12-05] MEDS: Pantoprazole 40 MG TABCR PO (08:20)
[2021-12-05] MEDS: Aspirin E.C. 81 MG TABEC PO (08:20)
[2021-12-05] MEDS: Apixaban 5 MG TAB PO ×2 (08:20→20:43)
[2021-12-05] MEDS: Normal Saline Flush 10 ML SYR IVP ×2 (08:21→20:43)
[2021-12-05] MEDS: cefTRIAXone 1 GM/50 ML BAG IVPB (08:21)
--- NOTE | 2021-12-05 09:15 | INITIAL_ITS ---
- If Service Date Differs Date of service: 12/05/21 Time of Service: 09:15 Care Management Initial Assess REASON FOR HOSPITALIZATION:: Cellulites, COPD PAST MEDICAL HISTORY/PAST SURGICAL HISTORY:: All Active Problems (Updated 12/05/21 @ 02:43 by Armen Matson MD). Cellulitis (Acute). Respiratory failure with hypoxia (Acute). COVID-19 (Acute). COPD (chronic obstructive pulmonary disease) (Chronic). Low back pain (Acute). Noncompliance with medication regimen (Acute). Pain, joint, knee, right (Acute). Fall (Acute). Blunt head trauma (Acute). Blunt injury of back (Acute). Fall (Acute). Contusion (Acute). Auditory hallucination (Acute). Fall (Acute). Acute exacerbation of chronic obstructive pulmonary disease (COPD) (Acute). Hallucinations (Chronic). Discharge planning issues (Acute). DVT prophylaxis (Acute). Community acquired pneumonia (Acute). Abdominal pain (Acute). Vertigo (Acute). Diverticulosis (Chronic). Cholelithiasis (Chronic). Nausea vomiting and diarrhea (Acute). Unsteady gait when walking (Acute). Constipation (Chronic). Memory impairment (Chronic). 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 Osteoarthritis of right knee (Chronic). Medical History. Aneurysm of infrarenal abdominal aorta. Asthma exacerbation. Bronchitis. CKD (chronic kidney disease) stage 3, GFR 30-59 ml/min. COPD (chronic obstructive pulmonary disease). COPD exacerbation. Failure to thrive in adult. Fracture of both ankles. Hearing loss. History of blood transfusion. Hx of hyperlipidemia. Hypertension. Hypothyroidism. Hypoxemia. Non-insulin dependent diabetes mellitus. Obesity. Pulmonary embolism. Seborrheic keratosis. Smoker. Surgical History . History of bilateral tubal ligation. History of hernia repair PREVIOUS FUNCTIONAL STATUS/SOCIAL/FAMILY SUPPORTS:: Fabiola lives alone in an apartment in [facility]. She has three sons but 2 of them live out of state. Fabiola reportedly has several friends who live locally who are supportive of her. She uses [facility] for transportation, has a cane and and is independent with her ADL's at baseline. CURRENT FUNCTIONAL STATUS:: Fabiola was sitting up in her bed when CM met with her. She was alert and oriented and easily engaged in conversation. She is here for COPD exacerbation, O2 Sat is 92% on 2L NC. She is also being treated with IV antibiotics. ADVANCE DIRECTIVES:: None on file, CM will offer Has patient been provided with info about the portal/API?: Yes Did the patient sign up for the portal?: No CODE STATUS:: Full Code INSURANCE COVERAGE / FINANCIAL ISSUES:: [facility] Health Plans [facility] and Medicaid. CURRENT HOME/COMMUNITY SERVICES/EQUIPMENT:: Uses a cane. [facility] for transportation. [facility] PRIMARY CARE PHYSICIAN:: Kathleen Azevedo NP ([facility]). POTENTIAL DISCHARGE NEEDS:: Follow up with PCP and discharge plan of care. PATIENT/FAMILY EDUCATION NEEDS:: Review of discharge instructions, including limitations, medications, and follow up plan of care; discuss Ask Me Three and self-management. ANTICIPATED BARRIERS TO DISCHARGE:: No anticipated barriers to discharge at this time. TRANSPORTATION:: Via [facility], coordinated by CM PLAN:: Fabiola will likely be discharged home with no new services when medically cleared by provider. She will follow up with her PCP, community providers, and plan of care as prescribed. [place] will be transported home via [facility] when ready. CM will continue to follow.
[2021-12-05] MEDS: methylPREDNISolone SUCC 40 MG VIAL IVP ×2 (09:20→18:28)
[2021-12-05] MEDS: QUEtiapine 25 MG TAB 50 MG PO (21:04)
[2021-12-05] MEDS: ARIPiprazole 5 MG TAB PO (21:04)
[2021-12-06 02:24] VITALS: RESP 2; RESP 4
[2021-12-06] MEDS: Albuterol/Ipratropium 3 ML UPD VIAL UPD ×3 (02:24→14:57)
[2021-12-06] MEDS: Normal Saline Flush 10 ML SYR IVP ×4 (02:24→17:52)
[2021-12-06] MEDS: methylPREDNISolone SUCC 40 MG VIAL IVP ×3 (02:24→17:52)
[2021-12-06 05:29] VITALS: BP 119/82; PULSE 103; RESP 18; TEMP 37.4; O2SAT 9
[2021-12-06] MEDS: Levothyroxine 150 MCG TAB PO (05:31)
[2021-12-06 07:14] VITALS: BP 110/67; PULSE 96; RESP 20; TEMP 36.9; O2SAT 93
[2021-12-06] MEDS: Acetaminophen 325 MG TAB 650 MG PO ×2 (08:41→19:46)
[2021-12-06] MEDS: Aspirin E.C. 81 MG TABEC PO (08:42)
[2021-12-06] MEDS: Apixaban 5 MG TAB PO ×2 (08:42→19:46)
[2021-12-06] MEDS: cefTRIAXone 1 GM/50 ML BAG IVPB (08:43)
[2021-12-06] MEDS: Pantoprazole 40 MG TABCR PO (08:43)
[2021-12-06] MEDS: Senna TAB 1 TAB PO ×2 (08:43→19:46)
[2021-12-06] MEDS: Polyethylene Glycol 3350 17 GM PACKET PO ×2 (08:43→19:46)
--- NOTE | 2021-12-06 09:48 | CMPROGNOTE_ITS ---
- If Service Date Differs Date of service: 12/06/21 Time of Service: 09:48 Care Management Progress Note S/O: Fabiola was sitting up in her chair when CM met with her. She was pleasant and easily engaged in conversation. She is currently on room air and is requiring IV ABX for Right Leg Cellulites. A: 76 year old female admitted to [facility] on 12/05/21 for Cellulites, COPD P: Fabiola will likely be discharged home when medically cleared by provider. Fabiola may require intermediate IV abx and/or CHH services, CM will follow. She will follow up with her PCP, community providers, and plan of care as prescribed. [place] will be transported home via RCT when ready. CM will continue to follow.
--- NOTE | 2021-12-06 12:51 | CHAPLAIN ---
Fabiola was bundled in blankets, in the chair when I visited. I introduced myself, explained my role and offered support. She did not seem interested in further conversation.
[2021-12-06 14:57] VITALS: RESP 20; RESP 8
--- NOTE | 2021-12-06 15:25 | W.PM.PROGNOT ---
Date of Service Date of service: 12/06/21 Time of Service: 15:25 Assessment and Plan Assessment and plan (1) Cellulitis: Status: Acute Assessment and plan: day 2 ceftriaxone elevate and continue to monitor (2) COPD (chronic obstructive pulmonary disease): Status: Chronic Assessment and plan: received IV steroids in ED stable and reports at her baseline. no oxygen requirements will continue home medications, substituted while hospitalized. Qualifiers: COPD type: emphysema Emphysema type: centrilobular Qualified Code(s): J43.2 - Centrilobular emphysema (3) DVT prophylaxis: Status: Acute Assessment and plan: fully anticoagulated on apixaban (4) Discharge planning issues: Status: Acute Assessment and plan: case management following do not anticipate services at discharge discussed with Dr Mcpherson. Subjective Subjective Patient reports: no new complaints, still having pain, tolerating liquids well, tolerating a regular diet and afebrile Exam Const General: no acute distress Orientation: alert HENMT Head: normal to inspection Mouth: moist mucous membranes Eyes General: appearance normal, both eyes and all related structures Neck Neck: normal visual inspection Cardio Rate: regular rate Skin General skin exam: erythema Lesions: no lesions noted Rashes: rashes noted (small hematoma surrounded by mild erythema, improving) Neuro General: patient alert and patient oriented x3 Extrem General: capillary refill normal Psych Mental Status: mental status grossly normal Objective Last Vital Signs Temp 36.9 C 12/06/21 07:14 Pulse 96 H 12/06/21 07:14 Resp 20 12/06/21 14:57 BP 110/67 12/06/21 07:14 Pulse Ox 93 12/06/21 07:14
[2021-12-06 15:58] VITALS: BP 128/65; PULSE 88; RESP 16; TEMP 36.8; O2SAT 92
[2021-12-06] MEDS: Budesonide/Formoterol 160/4.5 6 GM 60 PUFF INH IH (19:52)
[2021-12-06] MEDS: QUEtiapine 25 MG TAB 50 MG PO (22:23)
[2021-12-06] MEDS: ARIPiprazole 5 MG TAB PO (22:23)
[2021-12-06 23:05] VITALS: BP 118/67; PULSE 86; RESP 15; TEMP 37; O2SAT 93
[2021-12-07] VITALS (7 sets, daily range): BP systolic 144–169; BP diastolic 65–83; PULSE 68–88; RESP 8–18; TEMP 36.5–37.2; O2SAT 92–98
[2021-12-07] MEDS: Normal Saline Flush 10 ML SYR IVP ×3 (01:50→16:44)
[2021-12-07] MEDS: methylPREDNISolone SUCC 40 MG VIAL IVP (01:50)
[2021-12-07] MEDS: Levothyroxine 150 MCG TAB PO (05:17)
[2021-12-07] MEDS: Polyethylene Glycol 3350 17 GM PACKET PO ×2 (07:48→19:57)
[2021-12-07] MEDS: Budesonide/Formoterol 160/4.5 6 GM 60 PUFF INH IH ×2 (07:48→20:00)
[2021-12-07] MEDS: Tiotropium Bromide-Respimat 10 PUFF INH 2 PUFF IH (07:49)
[2021-12-07] MEDS: Senna TAB 1 TAB PO ×2 (07:49→19:57)
[2021-12-07] MEDS: Acetaminophen 325 MG TAB 650 MG PO ×2 (07:49→19:57)
[2021-12-07] MEDS: Pantoprazole 40 MG TABCR PO (07:51)
[2021-12-07] MEDS: Aspirin E.C. 81 MG TABEC PO (07:51)
[2021-12-07] MEDS: Apixaban 5 MG TAB PO ×2 (07:51→20:00)
[2021-12-07] MEDS: cefTRIAXone 1 GM/50 ML BAG IVPB (07:52)
--- NOTE | 2021-12-07 08:39 | CMPROGNOTE_ITS ---
- If Service Date Differs Date of service: 12/07/21 Time of Service: 08:39 Care Management Progress Note S/O: Fabiola was sitting in her chair when CM met with her. She was alert, oriented and easily engaged in conversation. She is 92% on RA and afebrile. She is on IV ABX and steroids. She had x-rays of her right leg today. CM will continue to monitor discharge planning needs. A: 76 year old female admitted to [facility] on 12/05/21 for Cellulites, COPD P: [place] will likely be discharged home when medically cleared by provider. Fabiola may require fdc IV abx and/or CHH services, CM will follow. She will follow up with her PCP, community providers, and plan of care as prescribed. [place] will be transported home via RCT when ready. CM will continue to follow.
[2021-12-07] MEDS: Albuterol 2.5 MG/3 ML INH SOLN VIAL UPD (09:43)
[2021-12-07] MEDS: predniSONE 20 MG TAB 40 MG PO (10:38)
[2021-12-07] MEDS: traMADol 50 MG TAB PO (13:04)
--- NOTE | 2021-12-07 13:34 | DI.RAD_ITS ---
Exam(s) XR TIB/FIB RT EXAM: XR TIB/FIB RT CLINICAL HISTORY: distal, pain, swelling, hematoma. TECHNIQUE: 2D digital imaging was performed. COMPARISON: CR,XR XR TIB/FIB RT from 12/05/2021 FINDINGS: No evidence of fracture of the tibia and fibula. However, there is significant advanced degenerative changes in the knee and there also multiple loose intra-articular bodies in the knee, both posterior ly and in the suprapatellar bursa. IMPRESSION: DATA REPOSITORY: RADIATION DOSE DELIVERED:
--- NOTE | 2021-12-07 13:34 | DI.RAD_ITS ---
Exam(s) XR ANKLE RT COMPLETE EXAM: XR ANKLE RT COMPLETE CLINICAL HISTORY: pain, swelling, trauma. TECHNIQUE: 2D digital imaging was performed. COMPARISON: No exams were available for comparison FINDINGS: There is no evidence of acute fracture of the ankle nor widening of the mortise. There are mild dege nerative changes in the ankle joint. Moderate size inferior calcaneal spur is noted. The lateral view there is a posterior located 5 by 3 millimeter calcification which is slightly more posteriorly located than typical for an os trigonum. In addition, there is in addition density withi n the pre Achilles fat pad which I suspect is in accessory muscle. This calcification may be related to this accessory muscle. IMPRESSION: DATA REPOSITORY: RADIATION DOSE DELIVERED:
--- NOTE | 2021-12-07 14:19 | W.PM.PROGNOT ---
Date of Service Date of service: 12/07/21 Time of Service: 14:19 Assessment and Plan Assessment and plan (1) Cellulitis: Status: Acute Assessment and plan: day 3 ceftriaxone elevate and continue to monitor still having pain, will image as it appears to be traumatic injury (2) COPD (chronic obstructive pulmonary disease): Status: Chronic Assessment and plan: received IV steroids in ED with oxygen requirements and c/o shortness of breath overnight. will complete steroid burst, continue ceftriaxone. will continue home medications, substituted while hospitalized. Qualifiers: COPD type: emphysema Emphysema type: centrilobular Qualified Code(s): J43.2 - Centrilobular emphysema (3) DVT prophylaxis: Status: Acute Assessment and plan: fully anticoagulated on apixaban (4) Discharge planning issues: Status: Acute Assessment and plan: case management following do not anticipate services at discharge discussed with Dr Mcpherson. Subjective Subjective Patient reports: still having pain, tolerating liquids well, tolerating a regular diet, shortness of breath and afebrile Exam Const General: no acute distress Orientation: alert HENWA Head: normal to inspection Mouth: moist mucous membranes Eyes General: appearance normal, both eyes and all related structures Neck Neck: normal visual inspection Cardio Rate: regular rate Skin General skin exam: erythema Lesions: no lesions noted Rashes: rashes noted (small hematoma surrounded by mild erythema, improving) Neuro General: patient alert and patient oriented x3 Extrem General: capillary refill normal Psych Mental Status: mental status grossly normal Objective Last Vital Signs Temp 37.2 C 12/07/21 07:49 Pulse 78 12/07/21 08:49 Resp 18 12/07/21 08:49 BP 145/65 H 12/07/21 07:20 Pulse Ox 92 12/07/21 07:20
[2021-12-07] MEDS: Albuterol/Ipratropium 3 ML UPD VIAL UPD (14:45)
--- NOTE | 2021-12-07 17:00 | W.PALLCONSUL ---
Date of service: 12/07/21 Time of Service: 17:00 History of Present Illness Narrative: Fabiola is a 76 year old female with a past medical history significant for COPD, recent COVID-19 and hx of PE on eliquis. She is currently hospitalized for RLE cellulitis. Palliative was consulted to discuss goals and establish care. She was seen in her hospital room. She was sitting up in the chair, finishing her meal. She reports that her cellulitis is improving but her leg is still sore. When questioned who she would want to speak for her (health care agent), she named her sister, Ana Steward. We completed a health care agent form to reflect her wishes. We reviewed CODE status, after a lengthy explanation and discussion, she wishes to remain a FULL code at this time. Assessment and Plan Assessment and plan (1) Cellulitis: Status: Acute (2) Respiratory failure with hypoxia: Status: Acute (3) COPD (chronic obstructive pulmonary disease): Status: Chronic Qualifiers: COPD type: emphysema Emphysema type: centrilobular Qualified Code(s): J43.2 - Centrilobular emphysema (4) Fall: Status: Acute (5) Hallucinations: Status: Chronic (6) Unsteady gait when walking: Status: Acute (7) Memory impairment: Status: Chronic (8) 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: Assessment and plan: Fabiola is a 76 year old female with a past medical history significant for COPD, recent COVID-19 and hx of PE on eliquis. She has had falls in the past and frequent hospitalizations. She is currently hospitalized for RLE cellulitis. Palliative was consulted to discuss goals and establish care. Fabiola has had 5 admissions over the last 6 months. She lives alone. There is question whether she is safe to continue living alone. We reviewed CODE status, she wishes to remain a FULL CODE after a long discussion about code status. She will benefit from ongoing discussion about CODE STATUS. She was agreeable to naming a health care agent. She has named her sister, Ana. A health care agent form was completed to reflect her wishes. She agrees with follow up with Palliative care. If she is still here next week, will follow up then. She should be discharged with outpatient Palliative follow up. Review of Systems Narrative: She is eating and drinking and tolerating her diet. She reports discomfort in her RLE. She denies SOB, coughing or wheezing. She reports improvement in her breathing since she was admitted. All systems reviewed & are unremarkable except as noted in HPI and below PFSH All Active Problems (Updated 12/07/21 @ 17:53 by Maryuri Ross NP) Cellulitis (Acute) Respiratory failure with hypoxia (Acute) COVID-19 (Acute) COPD (chronic obstructive pulmonary disease) (Chronic) Low back pain (Acute) Noncompliance with medication regimen (Acute) Pain, joint, knee, right (Acute) Fall (Acute) Blunt head trauma (Acute) Blunt injury of back (Acute) Fall (Acute) Contusion (Acute) Auditory hallucination (Acute) Fall (Acute) Acute exacerbation of chronic obstructive pulmonary disease (COPD) (Acute) Hallucinations (Chronic) Discharge planning issues (Acute) DVT prophylaxis (Acute) Community acquired pneumonia (Acute) Abdominal pain (Acute) Vertigo (Acute) Diverticulosis (Chronic) Cholelithiasis (Chronic) Nausea vomiting and diarrhea (Acute) Unsteady gait when walking (Acute) Constipation (Chronic) Memory impairment (Chronic) 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) Osteoarthritis of right knee (Chronic) Medical History Aneurysm of infrarenal abdominal aorta Asthma exacerbation Bronchitis CKD (chronic kidney disease) stage 3, GFR 30-59 ml/min COPD (chronic obstructive pulmonary disease) COPD exacerbation Failure to thrive in adult Fracture of both ankles Hearing loss History of blood transfusion Hx of hyperlipidemia Hypertension Hypothyroidism Hypoxemia Non-insulin dependent diabetes mellitus Obesity 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 Pulmonary embolism Seborrheic keratosis Smoker Surgical History History of bilateral tubal ligation History of hernia repair Family History Father Diabetes Social History Smoking/Tobacco Use Status: Current every day Tobacco Type: cigarettes Years smoked: 15 Tobacco: How many years used: 15 Counseling given: provider counseling and support medications Smoking risk assessment performed?: Yes Alcohol Intake: never Drug use: Never Substance use type: does not use Household members: none Housing: apartment Number of Children: 3 number of grandchildren: 1 What is your relationship status?: Panel score (0-1 are the most socially isolated patients): 0 What type of physical activity do you participate in: walking Seatbelt use: always Do you feel safe at home: Yes Do you feel safe in your relationship?: Yes Exam Narrative Exam Narrative: General: well-nourished, elderly female, seen sitting up in the chair in her hospital room. She is awake, alert and oriented, answers questions appropriately. HEENT: normocephalic, atraumatic, EOMI, mucous membranes moist, missing several teeth. Neck: supple. Cardiovascular: heart sounds regular, nontachycardic. Respiratory: respirations appear even and unlabored, lung sounds are clear throughout, no rales or wheezing noted. GI: +BS, abdomen is soft, nontender, nondistended. Extremities: RLE with edema and erythema distally. Moves all 4 extremities freely. Results Last Vital Signs Temp 36.7 C 12/07/21 14:41 Pulse 70 12/07/21 14:46 Resp 18 12/07/21 14:46 BP 144/83 H 12/07/21 14:41 Pulse Ox 98 12/07/21 14:46 Labs Result diagrams: 12/05/21 01:10 12/05/21 01:10
[2021-12-07 17:31] LABS: Bilirubin Negative (Negative); Blood Negative (Negative); Clarity Clear (Clear); Glucose Negative (Negative); Ketones Negative (Negative); Leukocyte Esterase Negative (Negative); Nitrite Negative (Negative); Specific Gravity 1.015 (1.005-1.025); Urobilinogen 0.2 EU/dL (Up TO 0.2)
[2021-12-07] MEDS: ARIPiprazole 5 MG TAB PO (21:34)
[2021-12-07] MEDS: QUEtiapine 25 MG TAB 50 MG PO (21:34)
[2021-12-08] MEDS: Levothyroxine 150 MCG TAB PO (06:06)
[2021-12-08] MEDS: Polyethylene Glycol 3350 17 GM PACKET PO (07:36)
[2021-12-08] MEDS: cefTRIAXone 1 GM/50 ML BAG IVPB (07:36)
[2021-12-08] MEDS: Normal Saline Flush 10 ML SYR IVP (07:37)
[2021-12-08] MEDS: Aspirin E.C. 81 MG TABEC PO (07:37)
[2021-12-08] MEDS: Senna TAB 1 TAB PO (07:37)
[2021-12-08] MEDS: predniSONE 20 MG TAB 40 MG PO (07:38)
[2021-12-08] MEDS: Acetaminophen 325 MG TAB 650 MG PO (07:38)
[2021-12-08] MEDS: Pantoprazole 40 MG TABCR PO (07:39)
[2021-12-08] MEDS: Apixaban 5 MG TAB PO (07:39)
[2021-12-08 07:53] VITALS: BP 145/83; PULSE 76; RESP 15; TEMP 36.8; O2SAT 90
[2021-12-08] MEDS: Budesonide/Formoterol 160/4.5 6 GM 60 PUFF INH IH (07:56)
[2021-12-08] MEDS: Tiotropium Bromide-Respimat 10 PUFF INH 2 PUFF IH (07:56)
[2021-12-08] MEDS: traMADol 50 MG TAB PO (08:57)
[2021-12-08 09:09] VITALS: O2SAT 89
[2021-12-08 09:12] VITALS: RESP 20; O2SAT 92
--- NOTE | 2021-12-08 10:32 | PT.INIE ---
Date of service: 12/08/21 Time of Service: 10:32 PT Notes Visit Reasons: Cellulitis, COPD Physical Therapy Inpatient Initial Evaluation Date: 12/08/2021 Referring Doctor: Margarita Vann NP PT Orders: PT CONSULT: Eval/treat Precautions: Fall. Standard. Activity as tolerated. Patient Profile/Admitting Diagnosis: Fabiola is a 76-year-old female who presented to the ED for right leg cellulitis and COPD exacerbation. PMHX: All Active Problems (Updated 12/05/21 @ 02:43 by Armen Matson MD) Cellulitis (Acute) Respiratory failure with hypoxia (Acute) COVID-19 (Acute) COPD (chronic obstructive pulmonary disease) (Chronic) Low back pain (Acute) Noncompliance with medication regimen (Acute) Pain, joint, knee, right (Acute) Fall (Acute) Blunt head trauma (Acute) Blunt injury of back (Acute) Fall (Acute) Contusion (Acute) Auditory hallucination (Acute) Fall (Acute) Acute exacerbation of chronic obstructive pulmonary disease (COPD) (Acute) Hallucinations (Chronic) Discharge planning issues (Acute) DVT prophylaxis (Acute) Community acquired pneumonia (Acute) Abdominal pain (Acute) Vertigo (Acute) Diverticulosis (Chronic) Cholelithiasis (Chronic) Nausea vomiting and diarrhea (Acute) Unsteady gait when walking (Acute) Constipation (Chronic) Memory impairment (Chronic) 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) Osteoarthritis of right knee (Chronic) Medical History (Updated 12/05/21 @ 02:43 by Armen Matson MD) Aneurysm of infrarenal abdominal aorta Asthma exacerbation Bronchitis CKD (chronic kidney disease) stage 3, GFR 30-59 ml/min COPD (chronic obstructive pulmonary disease) COPD exacerbation Failure to thrive in adult Fracture of both ankles Hearing loss History of blood transfusion Hx of hyperlipidemia Hypertension Hypothyroidism Hypoxemia Non-insulin dependent diabetes mellitus Obesity Pulmonary embolism Seborrheic keratosis Smoker Surgical History History of bilateral tubal ligation History of hernia repair Social History/Home Situation: Lives aloneon the first floor of an apartment building. Independent with all mobility of ADLs with single point cane. Receives melas on wheels for her lunch, able to prepare own breakfast and supper. Independent with bathing and dressing. Equipment Owned/DME: [facility] Subjective: Adamant about not wanting oxygen for home stating that she smokes. States that she is not willing to give up 30 years of smoking for the oxygen that she will be taking home. Objective: General Observation: Seated on chair. Oxygen supplementation at 1L/min via NC. Obese. Mental Status: Alert and oriented as to person, place, time, and purpose. Able to pay attention, focus, and respond appropriately. Pain: Denies Vital Signs: Desaturated to 85% on room air after ambulation of about 100 feet using SPC ROM: Right Upper Extremity: Shoulder Flexion WFL. Shoulder abduction WFL. Elbow flexion WFL. Wrist flexion WFL. Functional opening and closing of hand WFL. Left Upper Extremity: Shoulder Flexion WFL. Shoulder abduction WFL. Elbow flexion WFL. Wrist flexion WFL. Functional opening and closing of hand WFL. Right Lower Extremity: Hip flexion unable to bend beyond 90 degrees while seated on chair. Hip abduction WFL. Knee flexion WFL. Ankle dorsiflexion to neutral only. Ankle plantarflexion WFL. Left Lower Extremity: Hip flexion unable to bend beyond 90 degrees while seated on chair. Hip abduction WFL. Knee flexion WFL. Ankle dorsiflexion to neutral only. Ankle plantarflexion WFL. Strength: Right Upper Extremity: Shoulder flexors 4-/5. Shoulder abductors 4-/5. Elbow flexors 4/5. Elbow extensors 4/5. Motion Picture Set Up Worker strong. Left Upper Extremity: Shoulder flexors 4-/5. Shoulder abductors 4-/5. Elbow flexors 4/5. Elbow extensors 4/5. Motion Picture Set Up Worker strong. Right Lower Extremity: Hip flexors 4-/5. Hip abductors 4-/5. Knee flexors 4-/5. Knee extensors 3+/5. Ankle dorsiflexors 3-/5. Ankle plantarflexors 4-/5. Left Lower Extremity: Hip flexors 4-/5. Hip abductors 4-/5. Knee flexors 4-/5. Knee extensors 3+/5. Ankle dorsiflexors 3-/5. Ankle plantarflexors 4-/5. Bed Mobility/Transfers: Rolling independent Supine to sit independent Sit to supine independent Sit to stand independent Stand to sit independent Bed to reclining chair with independent Gait: Instructed patient with level surface ambulation of 100 feet requiring supervision oxygen tubing management only. Mild SOB. Desaturated to 85% on room air after activity. Required 2Lof oxygen to resaturate back to 90%. Balance: Static Sitting: Normal Dynamic Sitting: Normal Static Standing: Fair Dynamic Standing: Fair Special Tests: Mobility Limitations Standardized Measure [facility] AM-PAC 6 clicks Basic Mobility Inpatient Short Form: Raw Score: 24 CMS Score: 0%% deficit Informed Consent/Education: Patient was instructed in purpose of PT consult and plan of care. Agreeable to proceed with established PT POC to achieve personal goals. Assessment: Patient is refusing home oxygen stating that she is not willing to give up her smoking over getting home supplementation. Patient may potentially deteriorate due to lack of needed oxygen for activities and may therefore benefit from services at home to ensure that follow up is provided for her safety. Patient presents with clinical signs and symptoms consistent with current/admitting diagnoses that have resulted to mobility limitations, gait instability, generalized weakness, and overall ADL decline as demonstrated by the following impairment level findings: 1. Decreased strength to B UE/LE major muscle groups 2. Impaired standing balance 3. Impaired activity tolerance 4. Limitation of joint range of motion in hip flexion 5. Shortness of breath Impairments are contributing to the following functional limitations: 1. Decline in bed mobility skills 2. Decline in transfer skills 3. Difficulty with ambulation without assistive device and physical assistance 4. Increased completion time for mobility ADL performance 5. Increased risk for falls 6. Difficulty with managing steps alone safely Patient is assessed as a [id number] moderate complexity based on the following: History: 76-year-old female with past medical history as indicated above Examination: Demonstrable impairment in strength, balance, and mobility level with underlying impairments and functional limitations as exhibited above as well as deficit score of 0% utilizing the [facility] Mobility Inpatient Short Form Presentation: Stable Decision Makin moderate complexity Goals: N/A. PT evaluation and 1 treatment session only for safety recommendations prior to discharge. Plan of Care/Treatment Plan: N/A. PT evaluation and 1 treatment session only for safety recommendations prior to discharge. DISCHARGE RECOMMENDATIONS: [] Home with no services [] [X] Home with services. Patient will benefit from home health PT services in order to progress mobility level using least restrictive assistive ambulatory device, assess home safety, identify additional equipment needs, and establish a functional maintenance program that will increase ability of patient to remain at home. [] Home with outpatient PT [] [] SNF for continued rehabilitation [] [] [facility] Handling Techn[facility] [] [] SNF versus LTC based on ability to participate and progress [] TREATMENT CODE/TIME: 24356 x 20 minutes, 52103 x 15 minutes beginning at 10:32 AM. Thank you for the opportunity to participate in the care of this patient. Ting Posada PT, DPT, CLT [facility] [place], [place]
[2021-12-08 11:37] VITALS: O2SAT 90
[2021-12-08 11:38] VITALS: RESP 20; O2SAT 90
--- NOTE | 2021-12-08 12:14 | DSE_ITS ---
Date of service: 12/08/21 Time of Service: 12:14 DS: Diagnosis Discharge Diagnosis (1) Cellulitis: Status: Acute (2) Respiratory failure with hypoxia: Status: Acute (3) COPD (chronic obstructive pulmonary disease): Status: Chronic (4) Fall: Status: Acute (5) Hallucinations: Status: Chronic (6) Unsteady gait when walking: Status: Acute (7) Memory impairment: Status: Chronic (8) 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: Discharge Plan Disposition Patient Disposition: HOME W/HOME HEALTH SERVICE Condition: Stable Discharge Details Reason For Visit: Cellulitis, COPD Admit Date/Time: 12/05/21 02:57 Admit Provider: Armen Matson Attending Provider: Armen Maston Primary Care Provider: Kathleen Azevedo Hospital Course Hospital Course: This is a 76 year old female with history of copd, chronic anticoagulation, falls, who presented to the ED with c/o right lower extremity pain and discoloration and shortness of breath. Her work up in the ED showed white count 6,5, VBG 7.34, pCO2 59 (approx baseline), CPK 403, TSH 17.2; CXR basilar atelectasis vs pneumonia on right, negative tib/fib film; neg trop and EKG. Patient was given Vanco and Levaquin, along with Solumedrol and updraft. Hospitalist services was contacted to admit for cellulitis and possible copd exacerbation. On further evaluation, the painful discolored area with more of an appearance of trauma/hematoma and no infection. She continued to have shortness of breath which slowly improved with treatment. She did require 1 liter nc of oxygen but was weaned off. she is maintaining sats in the low 90's at rest. She was evaluated by PT and deemed safe for discharge with home health services. She will be discharged to home with new services. she will complete a steroid burst and antibiotic for copd exacerbation. discharge discussed with DR Mcpherson. Home Meds and New Rx's Prescriptions: New prednisone 20 mg Tablet 40 mg PO DAILY Qty: 8 RF: 0 cefpodoxime 200 mg tablet 200 mg PO BID Qty: 10 RF: 0 Continued ipratropium-albuterol 0.5 mg-3 mg(2.5 mg base)/3 mL Solution For Nebulization 3 ml UPD Q4H PRN PRN (Reason: shortness of breath or wheezing) Qty: 180 RF: 0 pantoprazole 40 mg Tablet,Delayed Release (Dr/Ec) 40 mg PO DAILY@0730 Qty: 30 RF: 0 sennosides [Senokot] 8.6 mg Tablet 8.6 mg PO BID Qty: 60 RF: 0 acetaminophen [Mapap Arthritis Pain] 650 mg Tablet Extended Release 650 mg PO BID RF: 0 ondansetron HCl [Zofran] 4 mg tablet 4 mg PO Q8H PRNQty: 20 RF: 0 levothyroxine 150 mcg tablet 150 mcg PO DAILY RF: 0 docusate sodium 100 mg capsule 100 mg PO BID PRN PRNRF: 0 Trelegy Ellipta 100-62.5-25 mcg blister with device 1 inh INHALATION DAILY RF: 0 Flovent HFA 220 mcg/actuation HFA aerosol inhaler 2 inh INHALATION BID RF: 0 polyethylene glycol 3350 17 gram Powder In Packet 17 g PO BID Qty: 0 RF: 0 aspirin 81 mg tablet,delayed release (DR/EC) 81 mg PO DAILY RF: 0 atorvastatin 80 mg tablet 80 mg PO DAILY RF: 0 Eliquis 5 mg tablet 5 mg PO BID Qty: 71 RF: 0 aripiprazole 5 mg tablet 5 mg PO HS RF: 0 quetiapine 25 mg Tablet 50 mg PO HS Qty: 20 RF: 0 ascorbic acid (vitamin C) [Vitamin C] 500 mg Tablet 1,000 mg PO BID Qty: 60 RF: 0 cholecalciferol (vitamin D3) 25 mcg (1,000 unit) Tablet 2,000 units PO DAILY Qty: 60 RF: 0 Discharge Instructions Instructions: COPD (Chronic Obstructive Pulmonary Disease) (DC) Additional Instructions: use walker at all times for gait safety and stability finish course of steroids and antibiotics as directed. can use heat to affected area on right lower extremity for comfort if needed. Stand Alone Forms: Nursing Discharge Form Referrals: Kathleen Azevedo [Primary Care Provider] - (Please call for a follow up in the next 2-3 weeks ) Activity:: Activity as Tolerated Equipment/Supplies:: Walker Diet:: As Tolerated Discharge Orders Discharge Orders: Discharge Order (Routine); Ordered 12/08/21 Ordered By: Margarita Vann Discharge Data Discharge Date/Time-TO BE ENTERED AT DEPARTURE: 12/08/21 13:02 DS: Summary Time Spent with Patient providing and/or coordinating discharge services: Greater than 30 minutes Status at Discharge Functional status at discharge: uses cane/walker Overall status at discharge: patient is progressing back to baseline Mental Status: mental status grossly normal Speech and Movement: speech and movement normal Mood: congruent mood Affect: normal affect Exam Psych Mental Status: mental status grossly normal Speech and Movement: speech and movement normal Mood: congruent mood Affect: normal affect DS: Data Vitals/I&O Vitals and I&O: Vital Signs Temperature 36.8 C 12/08/21 07:53 Temperature Source Tympanic 12/08/21 07:53 Pulse 76 12/08/21 07:53 Pulse Rhythm Regular 12/08/21 09:00 Respiratory Rate 20 12/08/21 11:38 Respiratory Effort 12/08/21 09:00 Respiratory Depth Shallow 12/08/21 09:00 Respiratory Pattern Normal 12/08/21 09:00 Blood Pressure 145/83 H 12/08/21 07:53 Blood Pressure Mean 85 12/05/21 00:15 Blood Pressure Position Supine 12/05/21 00:12 Pulse Oximetry 90 L 12/08/21 11:38 Oxygen Delivery Method Room Air 12/08/21 11:38 Oxygen Flow Rate 0 12/08/21 11:38 Fraction of Inspired Oxygen (FIO2) 21 12/06/21 08:53 Pain Level 4 12/08/21 09:52 Comment 12/07/21 22:45 Intake & Output 12/07/21 12/08/21 12/08/21 23:59 11:59 23:59 Intake Total 970 / 1750 830 / 830 Output Total 1100 / 1100 700 / 700 Balance -130 / 650 130 / 130 Intake: IV 70 / 70 Oral 960 / 1680 760 / 760 Output: Urine 1100 / 1100 700 / 700 Other: Urine Color Yellow Yellow Urine Appearance Cloudy Clear Urine Odor Normal Normal Comment Could not measure urine. Output not measured-voided on toilet Stool Size Small Stool Characteristics Formed Voiding Methods Toilet Toilet Data Completed and Pending Labs on day of discharge: Labs from last 24 hours 12/07/21 17:15 Urine Color Yellow Urine Clarity Clear Urine pH 6.0 Ur Specific [facility] 1.015 Urine Protein Negative Urine Ketones Negative Urine Blood Negative Urine Nitrite Negative Urine Bilirubin Negative Urine Urobilinogen 0.2 Ur Leukocyte Esterase Negative Urine Glucose Negative Preliminary micro results at discharge 12/05/21 01:50 Blood Culture - Preliminary Blood NO GROWTH 72 HOURS 12/05/21 01:10 Blood Culture - Preliminary Blood NO GROWTH 72 HOURS PFSH All Active Problems (Updated 12/07/21 @ 17:53 by Maryuri Ross NP) Cellulitis (Acute) Respiratory failure with hypoxia (Acute) COVID-19 (Acute) COPD (chronic obstructive pulmonary disease) (Chronic) Low back pain (Acute) Noncompliance with medication regimen (Acute) Pain, joint, knee, right (Acute) Fall (Acute) Blunt head trauma (Acute) Blunt injury of back (Acute) Fall (Acute) Contusion (Acute) Auditory hallucination (Acute) Fall (Acute) Acute exacerbation of chronic obstructive pulmonary disease (COPD) (Acute) Hallucinations (Chronic) Discharge planning issues (Acute) DVT prophylaxis (Acute) Community acquired pneumonia (Acute) Abdominal pain (Acute) Vertigo (Acute) Diverticulosis (Chronic) Cholelithiasis (Chronic) Nausea vomiting and diarrhea (Acute) Unsteady gait when walking (Acute) Constipation (Chronic) Memory impairment (Chronic) 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) Osteoarthritis of right knee (Chronic) Medical History Aneurysm of infrarenal abdominal aorta Asthma exacerbation Bronchitis CKD (chronic kidney disease) stage 3, GFR 30-59 ml/min COPD (chronic obstructive pulmonary disease) COPD exacerbation Failure to thrive in adult Fracture of both ankles Hearing loss History of blood transfusion Hx of hyperlipidemia Hypertension Hypothyroidism Hypoxemia Non-insulin dependent diabetes mellitus Obesity 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 Pulmonary embolism Seborrheic keratosis Smoker Surgical History History of bilateral tubal ligation History of hernia repair Family History Father Diabetes Social History Smoking/Tobacco Use Status: Current every day Tobacco Type: cigarettes Years smoked: 15 Tobacco: How many years used: 15 Counseling given: provider counseling and support medications Smoking risk assessment performed?: Yes Alcohol Intake: never Drug use: Never Substance use type: does not use Household members: none Housing: apartment Number of Children: 3 number of grandchildren: 1 What is your relationship status?: Panel score (0-1 are the most socially isolated patients): 0 What type of physical activity do you participate in: walking Seatbelt use: always Do you feel safe at home: Yes Do you feel safe in your relationship?: Yes
--- NOTE | 2021-12-08 12:18 | PDOC.HHF2F_ITS ---
Home Health Certification Home Health Certification: 1. Encounter Date and Reason I certify that Fabiola Martínez was seen by Margarita Vann on 12/08/21 and that I had a [id number] encounter with this patient that meets the physician face to face encounter requirements. 2. Clinical Findings Supporting Skilled Need and Homebound Status I certify that home health services are medically necessary, include either intermittent long term and/or physical/speech therapy, and that this patient is homebound in that absences from the home require considerable and taxing effort and are infrequent or of short duration, or are attributable to the need to receive medical care. [X] (a) Attached documentation from encounter provides clinical findings supporting skilled need and homebound status (including what assistance patient requires to leave the home). The encounter with the patient was in whole, or in part, for the following medical condition, which is the primary reason for home health care: Cellulitis right lower extremity, COPD [facility]: routine nursing evaluation and medication oversight, Physical and occupational Therapy: routine evaluation and treatment BACKUP ENGINEER: routine NIGHT ASSISTANT: routine oversight and management Homebound: patient is unable to safely leave the house unattended d/t unsteady gait, history of falls, decreased strength and endurance, shortness of breath with activity. 3. Certification and Authentication I certify that I composed the above information based on my clinical judgement relating to this patient's medical condition and, if applicable, clinical findings communicated to me by the NPP or inpatient physician who performed the Home Health Referral. All further orders will be obtained through Kathleen Azevedo MD_(Community Based Physician - PCP)
--- NOTE | 2021-12-08 14:09 | PDOC.CMDIS ---
- If Service Date Differs Date of service: 12/08/21 Time of Service: 14:09 LACE Index Scoring Tool - Questions: Length of Stay (in days): 3 Acuity (Admit via E.D.?): Yes Comorbidities: Diabetes w/o Complication, Chronic Pulmonary Disease, Mild Liver/Renal Disease E.D. Visits: 10 - Answers: Total Score: 15 Risk of Readmission: High Risk Care Management Discharge Reason for Hospitalization: Cellulites, COPD Discharge Plan: Discharge home with New [facility] SN, PT, DRAFTER REFRIGERATION and SECURITY SYSTEMS ENGINEER. Transportation via [facility] private vehicle with planned stop at pts pharmacy. Pt refuses supplemental oxygen for home. Follow up with community providers and discharge plan of care as prescribed. Patient/Family Education Needs: Review discharge instructions, limitations and plan to follow up with community providers. ask me three. Services Needed at Discharge: Home Health Care Services ([facility] RN, PT, DRAFTER REFRIGERATION, SECURITY SYSTEMS ENGINEER. CM notified [facility]), Transportation (via [facility], coordinated by CM)
== END 2021-12-08 13:02 | disposition home health service (06) | DRG 602 ==
LOC: ER 03:02 → MS 06:04
PROVIDERS: Nurse Practitioner Acute Care; Admitting Provider General Practice; Emergency Provider Emergency Medicine; PCP Nurse Practitioner; Visit Provider General Practice
DX: L03.115 Cellulitis of right lower limb (principal); J96.01 Acute respiratory failure with hypoxia; Z68.41 Body mass index [BMI] 40.0-44.9, adult; R44.3 Hallucinations, unspecified; J44.1 Chronic obstructive pulmonary disease with (acute) exacerbation; E03.9 Hypothyroidism, unspecified; F17.210 Nicotine dependence, cigarettes, uncomplicated; I71.4 Abdominal aortic aneurysm, without rupture; N18.30 Chronic kidney disease, stage 3 unspecified; E78.5 Hyperlipidemia, unspecified; I12.9 Hypertensive chronic kidney disease with stage 1 through stage 4 chronic kidney disease, or unspecified chronic kidney disease; E11.9 Type 2 diabetes mellitus without complications; Z79.84 Long term (current) use of oral hypoglycemic drugs; Z86.711 Personal history of pulmonary embolism; E66.9 Obesity, unspecified; R26.81 Unsteadiness on feet; K59.00 Constipation, unspecified; M17.11 Unilateral primary osteoarthritis, right knee; M54.50 Low back pain, unspecified; Z79.01 Long term (current) use of anticoagulants; Z86.16 Personal history of COVID-19; R41.3 Other amnesia; R29.6 Repeated falls
CPT/HCPCS: 36415; 80053; 82550; 82805; 87040; 87635; 93005; 94640; 96365; 96366; 96375; 97162; 97530; 99285; 71045; 73590; 73610; 81003; 83735; 83880; 84439; 84443; 84484; 85025; 93010; 99222; 99233; 99239; J0696; J1956; J2930; J7512; J7613; J7620

== ENCOUNTER 2022-01-15 20:18 | Emergency (ER) | payer OTHER, MEDICAID, SELFPAY ==
--- NOTE | 2022-01-15 20:15 | DI.RAD_ITS ---
Exam(s) XR LUMBAR SPINE COMPLETE EXAM: XR LUMBAR SPINE COMPLETE CLINICAL HISTORY: lower spine pain, no fall or trauma. TECHNIQUE: 2D digital imaging was performed of the lumbar spine. Five images were obtained. AP, la teral, right oblique, left oblique and L5-S1 spot views were obtained. COMPARISON: CR XR LUMBAR SPINE COMPLETE from 01/11/2021 FINDINGS: BONES: No fracture or destructive lesion. There are endplate osteophytes throughout the lumbar spine. Degenerative changes of the facets are seen at L5-S1. DISKS: There is disc space narrowing at T12-L1 through L2-L3. ALIGNMENT: Lumbar spinal alignment is within normal limits. No spondylolysis or spondylolisthesis. SOFT TISSUE: Normal. IMPRESSION: Multilevel degenerative changes in the lumbar spine. DATA REPOSITORY: RADIATION DOSE DELIVERED:
[2022-01-15 20:20] VITALS: BP 149/72; PULSE 79; RESP 18; TEMP 35.4; O2SAT 89
[2022-01-15] MEDS: Acetaminophen 500 MG TAB 1000 MG PO (20:33)
[2022-01-15] MEDS: Lidocaine 5% Patch 1 PATCH TP (20:35)
--- NOTE | 2022-01-15 20:37 | W.ED.GENAD ---
Discharge Plan Disposition Patient Disposition: HOME Condition: Good Discharge Details Clinical Impression: Back pain Primary Care Provider: Kathleen Azevedo ED Provider: Cade Lopez Home Meds and New Rx's Prescriptions: New lidocaine [Lidoderm] 1 PATCH patch 1 patch Topical Q24H Qty: 4 0RF Continued ipratropium-albuterol 0.5 mg-3 mg(2.5 mg base)/3 mL Solution For Nebulization 3 ml UPD Q4H PRN PRN (Reason: shortness of breath or wheezing) Qty: 180 0RF pantoprazole 40 mg Tablet,Delayed Release (Dr/Ec) 40 mg PO DAILY@0730 Qty: 30 0RF acetaminophen [Mapap Arthritis Pain] 650 mg Tablet Extended Release 650 mg PO BID 0RF levothyroxine 150 mcg tablet 150 mcg PO DAILY 0RF Label Comments: TAKE 1 TABLET BY MOUTH DAILY docusate sodium 100 mg capsule 100 mg PO BID PRN PRN0RF Label Comments: TAKE 1 CAPSULE BY MOUTH TWICE DAILY NEEDED Trelegy Ellipta 100-62.5-25 mcg blister with device 1 inh INHALATION DAILY 0RF Label Comments: INHALE 1 PUFF BY MOUTH EVERY DAY Flovent HFA 220 mcg/actuation HFA aerosol inhaler 2 inh INHALATION BID 0RF Label Comments: INHALE 2 PUFFS BY MOUTH TWICE DAILY aspirin 81 mg tablet,delayed release (DR/EC) 81 mg PO DAILY 0RF Label Comments: TK 1 T PO D atorvastatin 80 mg tablet 80 mg PO DAILY 0RF Label Comments: Take 1 tablet by mouth every evening Eliquis 5 mg tablet 5 mg PO BID Qty: 71 0RF Rx Instructions: Take 10 mg BID x 5 days and this afternoon. Then 5 mg BID aripiprazole 5 mg tablet 5 mg PO HS 0RF Label Comments: TAKE 1 TABLET BY MOUTH AT BEDTIME quetiapine 25 mg Tablet 50 mg PO HS Qty: 20 0RF ascorbic acid (vitamin C) [Vitamin C] 500 mg Tablet 1,000 mg PO BID Qty: 60 0RF cefpodoxime 200 mg tablet 200 mg PO BID Qty: 10 0RF Rx Instructions: must administer with a meal/food Discharge Instructions Instructions: Back Pain (ED) Additional Instructions: At this time your x-ray shows no evidence of new fracture or significant abnormality. You do have notable arthritis in your back. Please use a heating pad as often as possible to help with the spasm. You can take Tylenol 1000 mg every 6 hours as needed for pain. These are the maximum dose. You have been given a few pain pills to go home with. Be very cautious when you take these as a may cause you to be slightly dizzy or lightheaded. Make sure that you are walking with assistance if you take any of these and that you have someone to help you at home. Please use the Lidoderm patch as directed for help with the pain in your back. These have been sent to your pharmacy on file. If you have continued pain you may require further imaging of your back. Please discuss this with your primary care provider. If you notice any worsening of your symptoms, or any new symptoms such as vomiting, diarrhea, fever, chills, shortness of breath, chest pain, numbness, weakness, or fainting , please return immediately to the emergency department for reevaluation. Please follow up with your primary care provider as soon as possible for reassessment and reevaluation. As always, it was a pleasure participating in your medical care today. Referrals: Kathleen Azevedo [Primary Care Provider] - Discharge Data Discharge Date/Time-TO BE ENTERED AT DEPARTURE: 01/15/22 22:17 Medical Decision Making 76-year-old female with a past medical history of previous AAA, asthma, CKD, COPD, previous pulmonary embolism, currently on Eliquis, who is a palliative care patient, who presents today for back pain. Patient states yesterday she had to go up and down the stairs a lot secondary to bug spray being sprayed at her house. Since then she has had achiness in her back. She denies any urinary frequency, dysuria, or abdominal pain, or nausea or vomiting. She has been taking ibuprofen but this has not been helping. She denies any numbness tingling or weakness. She denies any saddle anesthesia or bowel or bladder incontinence. She states that this feels nothing like my AAA ever did. She has no other complaints at this time. Pain is made worse with walking and bending. Improved by nothing. Patient demonstrates midline tenderness at the lumbar vertebra. No tenderness over the thoracic or cervical vertebra, patient also has tenderness over the lumbar paraspinal musculature. No evidence of trauma. Good rectal tone, good perianal sensation. No saddle anesthesia. 5 out of 5 strength in lower extremities. Good dorsiflexion of the feet great toes bilaterally. Dorsalis pedis and posterior tibial pulse +2 bilaterally. No evidence of vascular compromise. No evidence of neurologic compromise. abdominal exam demonstrates no abdominal tenderness. No pulsatile mass. Symptoms appear inconsistent with AAA, distal vascular exam normal. She has mild lumbar spine tenderness on exam. No symptoms consistent with cauda equina syndrome. I suspect that this is likely musculoskeletal strain and muscle spasm. I do not feel that the patient would be a good candidate for muscle relaxant secondary to her Eliquis use, and her age as there would be significant concern for fall or subsequent trauma. We'll give a Lidoderm patch, Tylenol, get x-rays, monitor closely and reassess. Patient has no urinary complaints, no CVA tenderness to suggest UTI or [place]. No abdominal tenderness to suggest appendicitis or AAA worsening. No left lower quadrant tenderness to suggest diverticulitis. 11 PM X-ray results have returned. X-ray negative for acute process. There is evidence of notable arthritis. Reevaluation after Tylenol and Lidoderm patch demonstrates mild improvement. Reexam continues to show no focal neurologic deficits, no vascular compromise, no other signs or symptoms concerning for other pathology at this time. No current indication for additional imaging. Will recommend continued Tylenol, Lidoderm patch, and heating pad at home. Recommend close follow-up with PCP to discuss physical therapy options. Discussed red flags for which to return. I have extensively reviewed the treatment plan and discharge instructions with the patient. I have addressed all patient concerns at this time. The patient was made aware of what symptoms to monitor for that would warrant a return to the emergency department. Discussed the plan with the patient, they demonstrate verbal understanding and agreement with our assessment and plan at this time. The documentation in this chart was dictated using Linq3 dictation software. Please excuse any dictation errors. Of note the patient was sleeping comfortably in her bed on initial reassessment prior to disposition. Additionally she was seen walking out of the department well without any signs of ataxia, limp, or significant discomfort. FINDINGS: Bones/joints: Negative for compression fracture in the lumbar spine. Negative for anterior or posterior translation of vertebral bodies. Disc space narrowing and endplate sclerosis noted at multiple levels. Facet hypertrophy and sclerosis noted at multiple levels. Anterior margin of the sacrum is intact. Soft tissues: Unremarkable. IMPRESSION: Multilevel degenerative disc disease and facet arthropathy. Dictated and Authenticated by: Matthew Vasquez MD. HPI General Date/Time Provider Initiated Documentation: 01/15/22 20:27. HPI Narrative: 76-year-old female with a past medical history of previous AAA, asthma, CKD, COPD, previous pulmonary embolism, currently on Eliquis, who is a palliative care patient, who presents today for back pain. Patient states yesterday she had to go up and down the stairs a lot secondary to bug spray being sprayed at her house. Since then she has had achiness in her back. She denies any urinary frequency, dysuria, or abdominal pain, or nausea or vomiting. She has been taking ibuprofen but this has not been helping. She denies any numbness tingling or weakness. She denies any saddle anesthesia or bowel or bladder incontinence. She states that this feels nothing like my AAA ever did. She has no other complaints at this time. Pain is made worse with walking and bending. Improved by nothing. No other complaints at this time. No other modifying factors. Related Data Home Medications Medication Instructions Recorded Confirmed aspirin 81 mg tablet,delayed 81 mg PO DAILY 09/22/20 01/15/22 release ipratropium 0.5 mg-albuterol 3 mg 3 ml UPD Q4H PRN PRN #180 ml 10/07/20 01/15/22 (2.5 mg base)/3 mL nebulization soln pantoprazole 40 mg tablet,delayed 40 mg PO DAILY@0730 #30 tab 10/07/20 01/15/22 release acetaminophen 650 mg 650 mg PO BID 01/01/21 01/15/22 tablet,extended release (Mapap Arthritis Pain) atorvastatin 80 mg tablet 80 mg PO DAILY 06/15/21 01/15/22 apixaban 5 mg tablet (Eliquis) 5 mg PO BID #71 tab 06/16/21 01/15/22 docusate sodium 100 mg capsule 100 mg PO BID PRN PRN 08/30/21 01/15/22 fluticasone fur. 100 mcg-umeclid 1 inh INHALATION DAILY 08/30/21 01/15/22 62.5 mcg-vilant 25 mcg inhalat.powder (Trelegy Ellipta) fluticasone propionate 220 2 inh INHALATION BID 08/30/21 01/15/22 mcg/actuation HFA aerosol inhaler (Flovent HFA) levothyroxine 150 mcg tablet 150 mcg PO DAILY 08/30/21 01/15/22 aripiprazole 5 mg tablet 5 mg PO HS 10/16/21 01/15/22 ascorbic acid (vitamin C) 500 mg 1,000 mg PO BID #60 tab 10/21/21 01/15/22 tablet (Vitamin C) quetiapine 25 mg tablet 50 mg PO HS #20 tab 10/21/21 01/15/22 cefpodoxime 200 mg tablet 200 mg PO BID #10 tab 12/08/21 01/15/22 lidocaine 5 % topical patch 1 patch TOPICAL Q24H #4 ea 01/15/22 (Lidoderm) Previous Rx's Medication Instructions Recorded ipratropium 0.5 mg-albuterol 3 mg 3 ml UPD Q4H PRN PRN #180 ml 10/07/20 (2.5 mg base)/3 mL nebulization soln pantoprazole 40 mg tablet,delayed 40 mg PO DAILY@0730 #30 tab 10/07/20 release apixaban 5 mg tablet (Eliquis) 5 mg PO BID #71 tab 06/16/21 ascorbic acid (vitamin C) 500 mg 1,000 mg PO BID #60 tab 10/21/21 tablet (Vitamin C) quetiapine 25 mg tablet 50 mg PO HS #20 tab 10/21/21 cefpodoxime 200 mg tablet 200 mg PO BID #10 tab 12/08/21 lidocaine 5 % topical patch 1 patch TOPICAL Q24H #4 ea 01/15/22 (Lidoderm) Allergies Allergy/AdvReac Type Severity Reaction Status Date / Time Penicillins Allergy Intermediate Swelling/Ed Verified 01/15/22 21:17 demond Bees Allergy Uncoded 01/15/22 21:17 General Stated Complaint: Nk/Back Pain KAYA: 3 Review of Systems All systems reviewed & are unremarkable except as noted in HPI and below PFSH All Active Problems (Updated 01/15/22 @ 21:27 by Cade Lopez DO) Back pain (Acute) Cellulitis (Acute) Respiratory failure with hypoxia (Acute) COVID-19 (Acute) COPD (chronic obstructive pulmonary disease) (Chronic) Low back pain (Acute) Noncompliance with medication regimen (Acute) Pain, joint, knee, right (Acute) Fall (Acute) Blunt head trauma (Acute) Blunt injury of back (Acute) Fall (Acute) Contusion (Acute) Auditory hallucination (Acute) Fall (Acute) Acute exacerbation of chronic obstructive pulmonary disease (COPD) (Acute) Hallucinations (Chronic) Discharge planning issues (Acute) DVT prophylaxis (Acute) Community acquired pneumonia (Acute) Abdominal pain (Acute) Vertigo (Acute) Diverticulosis (Chronic) Cholelithiasis (Chronic) Nausea vomiting and diarrhea (Acute) Unsteady gait when walking (Acute) Constipation (Chronic) Memory impairment (Chronic) 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) Osteoarthritis of right knee (Chronic) Medical History Aneurysm of infrarenal abdominal aorta Asthma exacerbation Bronchitis CKD (chronic kidney disease) stage 3, GFR 30-59 ml/min COPD (chronic obstructive pulmonary disease) COPD exacerbation Failure to thrive in adult Fracture of both ankles Hearing loss History of blood transfusion Hx of hyperlipidemia Hypertension Hypothyroidism Hypoxemia Non-insulin dependent diabetes mellitus Obesity 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 Pulmonary embolism Seborrheic keratosis Smoker Surgical History History of bilateral tubal ligation History of hernia repair Family History Father Diabetes Social History Smoking/Tobacco Use Status: Current every day Tobacco Type: cigarettes Years smoked: 58 Tobacco: How many years used: 15 Counseling given: provider counseling and support medications Smoking risk assessment performed?: Yes Alcohol Intake: never Drug use: Never Substance use type: does not use Household members: none Housing: apartment Number of Children: 3 number of grandchildren: 1 What is your relationship status?: Panel score (0-1 are the most socially isolated patients): 0 What type of physical activity do you participate in: walking Seatbelt use: always Do you feel safe at home: Yes Do you feel safe in your relationship?: Yes Exam Narrative Exam Narrative: 1.Const: Well-nourished, Well-developed, appearing stated age 2.Eyes: PERRL, no conjunctival injection, and symmetrical lids. 3.ENT: Atraumatic external nose and ears. Moist MM. Neck: Symmetric, trachea midline, No thyromegaly. 4.CVS: +S1/S2, No murmurs or gallops. Peripheral pulses 2+ and equal in all extremities. Brisk capillary refill in all extremities. 5.RESP: Unlabored respiratory effort. Minimal scattered wheezes. No rhonchi or rales. 6.GI: Soft, Nontender/Nondistended, No hepatosplenomegaly. No guarding or rebound. 7.MSK: Normocephalic/Atraumatic, Extremities w/o deformity or ttp No cyanosis or clubbing, Normal movement of all extremities Patient demonstrates midline tenderness at the lumbar vertebra. No tenderness over the thoracic or cervical vertebra, patient also has tenderness over the lumbar paraspinal musculature. No evidence of trauma. Good rectal tone, good perianal sensation. No saddle anesthesia. 5 out of 5 strength in lower extremities. Good dorsiflexion of the feet great toes bilaterally. Dorsalis pedis and posterior tibial pulse +2 bilaterally. No evidence of vascular compromise. No evidence of neurologic compromise. 8.Skin: Warm, Dry. No rashes or lesions. 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 Sensation grossly intact, no focal neurologic deficits. 10.Psych: (AAO) x3. Appropriate mood and affect Course Vital Signs Vital signs: Vital Signs Temperature 35.4 C L 01/15/22 20:20 Pulse 79 01/15/22 20:20 Respiratory Rate 18 01/15/22 20:20 Blood Pressure 149/72 H 01/15/22 20:20 Pulse Oximetry 89 L 01/15/22 20:20 Temperature 35.4 C L 01/15/22 20:20 Temperature Source Temporal Artery Scan 01/15/22 20:20 Pulse 79 01/15/22 20:20 Respiratory Rate 18 01/15/22 20:20 Respiratory Effort Non-Labored 01/15/22 20:26 Blood Pressure 149/72 H 01/15/22 20:20 Blood Pressure Position Sitting 01/15/22 20:20 Pulse Oximetry 89 L 01/15/22 20:20 Oxygen Delivery Method Room Air 01/15/22 20:20 Oxygen Flow Rate 0 01/15/22 20:20 Pain Level 9 01/15/22 20:33
--- NOTE | 2022-01-15 21:18 | DI.VRAD_ITS ---
PROCEDURE INFORMATION: Exam: XR Lumbosacral Spine Exam date and time: 01/15/2022 8:29 PM Age: 76 years old Clinical indication: Other: Lower spine pain, no fall or trauma TECHNIQUE: Imaging protocol: XR of the lumbosacral spine. Views: 4 or 5 views. COMPARISON: CT THORACIC LUMBAR SPINE REC 09/19/2021 2:36 AM FINDINGS: Bones/joints: Negative for compression fracture in the lumbar spine. Negative for anterior or posterior translation of vertebral bodies. Disc space narrowing and endplate sclerosis noted at multiple levels. Facet hypertrophy and sclerosis noted at multiple levels. Anterior margin of the sacrum is intact. Soft tissues: Unremarkable. IMPRESSION: Multilevel degenerative disc disease and facet arthropathy. Dictated and Authenticated by: Matthew Vasquez MD. Ordering:YANIQUE Mohamud MD
== END 2022-01-15 22:17 | disposition home or self-care (01) ==
PROVIDERS: Emergency Provider Student in an Organized Health Care Education/Training Program; PCP Nurse Practitioner
DX: M54.50 Low back pain, unspecified (principal)
CPT/HCPCS: 99283; 72110

== ENCOUNTER 2022-01-21 00:48 | Inpatient (IN) | payer OTHER, MEDICAID, SELFPAY ==
[2022-01-21] VITALS (47 sets, daily range): BP systolic 91–146; BP diastolic 33–76; PULSE 81–108; RESP 0–42; TEMP 36.3–37; O2SAT 36–97
--- NOTE | 2022-01-21 00:55 | ED.GENADUL_ITS ---
Discharge Plan Disposition Patient Disposition: [facility] INPATIENT Condition: Poor Discharge Details Clinical Impression: Community acquired pneumonia Primary Care Provider: Kathleen Azevedo ED Provider: Richard Verdugo Meds and New Rx's Prescriptions: No Action ipratropium-albuterol 0.5 mg-3 mg(2.5 mg base)/3 mL Solution For Nebulization 3 ml UPD Q4H PRN PRN (Reason: shortness of breath or wheezing) Qty: 180 0RF pantoprazole 40 mg Tablet,Delayed Release (Dr/Ec) 40 mg PO DAILY@0730 Qty: 30 0RF acetaminophen [Mapap Arthritis Pain] 650 mg Tablet Extended Release 650 mg PO BID 0RF levothyroxine 150 mcg tablet 150 mcg PO DAILY 0RF Label Comments: TAKE 1 TABLET BY MOUTH DAILY docusate sodium 100 mg capsule 100 mg PO BID PRN PRN0RF Label Comments: TAKE 1 CAPSULE BY MOUTH TWICE DAILY NEEDED Trelegy Ellipta 100-62.5-25 mcg blister with device 1 inh INHALATION DAILY 0RF Label Comments: INHALE 1 PUFF BY MOUTH EVERY DAY Flovent HFA 220 mcg/actuation HFA aerosol inhaler 2 inh INHALATION BID 0RF Label Comments: INHALE 2 PUFFS BY MOUTH TWICE DAILY prednisone 20 mg tablet 40 mg PO BID 0RF Label Comments: Take 2 tablet by mouth once a day x 3 days, then on tablet daily x 4 more day ascorbic acid (vitamin C) 500 mg tablet 1,000 mg PO BID 0RF Label Comments: Take 2 tablet twice a day aripiprazole [Abilify] 5 mg tablet 5 mg PO HS 0RF Label Comments: Take 1 tablet by mouth at bedtime ondansetron HCl 4 mg tablet 4 mg PO PRN PRN0RF Label Comments: TAKE 1 TABLET BY MOUTH EVERY 8 HOURS NEEDED FOR NAUSEA OR DIZZINESS diazepam 5 mg tablet 5 mg PO PRN PRN0RF Label Comments: Take 1 tablet by mouth three times a day as needed take for nausea aspirin 81 mg tablet,delayed release (DR/EC) 81 mg PO DAILY 0RF Label Comments: TK 1 T PO D atorvastatin 80 mg tablet 80 mg PO DAILY 0RF Label Comments: Take 1 tablet by mouth every evening Eliquis 5 mg tablet 5 mg PO BID Qty: 71 0RF Rx Instructions: Take 10 mg BID x 5 days and this afternoon. Then 5 mg BID aripiprazole 5 mg tablet 5 mg PO HS 0RF Label Comments: TAKE 1 TABLET BY MOUTH AT BEDTIME quetiapine 25 mg Tablet 50 mg PO HS Qty: 20 0RF ascorbic acid (vitamin C) [Vitamin C] 500 mg Tablet 1,000 mg PO BID Qty: 60 0RF cefpodoxime 200 mg tablet 200 mg PO BID Qty: 10 0RF Rx Instructions: must administer with a meal/food lidocaine [Lidoderm] 1 PATCH patch 1 patch Topical Q24H Qty: 4 0RF Medical Decision Making Patient presenting to the ED after becoming lightheaded and falling at home. Pretty much complains of pain everywhere and does state she struck her head. She is on Eliquis for previous PE. Normal range of motion of her extremities with no deformity or tenderness. She has diffuse wheezing and rhonchi. Duoneb ordered. IV, labs, fluids, EKG and CXR ordered. CT head and neck due to report of head strike with fall and on Eliquis. EKG is unchanged from before. Chest x-ray shows significant right middle and lower lobe infiltrate. Difficulty obtaining IV access but eventually obtained. Fluids and antibiotics ordered. Laboratory studies significant for slight elevated white count at 11.2. Hemoglobin normal. Venous blood gas with PCO2 of 52 which is baseline. Kidney function baseline though BUN a little high suggesting possibility of some dehydration. Electrolytes normal. Troponin negative. CT head and neck is still pending. Case has been discussed with hospitalist. Patient to be admitted for further management of right-sided pneumonia. Medical Records Medical records reviewed: Yes I reviewed the patient's medical records. Lab Data Lab results reviewed: Yes I reviewed the patient's lab results. ECG Data Attestation: I personally reviewed and interpreted this ECG (s) as follows: Prior ECG tracings: available for review Interpretation: see EKG HPI General Mode of arrival: EMS . Date/Time Provider Initiated Documentation: 01/21/22 00:55 . Limitations to Documentation: no limitations . Information obtained by: patient, RN notes reviewed and old records reviewed . HPI Narrative: Patient presents to ED by ambulance after a fall at home. Patient reports getting lightheaded causing her to fall. She states she did strike her head but denies loss of consciousness. She complains of having chest pain, shortness of breath, abdominal discomfort, cough. She denies fever. She has history of PE and has been on Eliquis. She has history of COPD and has multiple inhalers and nebulizer at home. She is not on oxygen at home. She reports eating drinking okay with no vomiting. Related Data Home Medications Medication Instructions Recorded Confirmed aspirin 81 mg tablet,delayed 81 mg PO DAILY 09/22/20 01/21/22 release ipratropium 0.5 mg-albuterol 3 mg 3 ml UPD Q4H PRN PRN #180 ml 10/07/20 01/21/22 (2.5 mg base)/3 mL nebulization soln pantoprazole 40 mg tablet,delayed 40 mg PO DAILY@0730 #30 tab 10/07/20 01/21/22 release acetaminophen 650 mg 650 mg PO BID 01/01/21 01/21/22 tablet,extended release (Mapap Arthritis Pain) atorvastatin 80 mg tablet 80 mg PO DAILY 06/15/21 01/21/22 apixaban 5 mg tablet (Eliquis) 5 mg PO BID #71 tab 06/16/21 01/21/22 docusate sodium 100 mg capsule 100 mg PO BID PRN PRN 08/30/21 01/21/22 fluticasone fur. 100 mcg-umeclid 1 inh INHALATION DAILY 08/30/21 01/21/22 62.5 mcg-vilant 25 mcg inhalat.powder (Trelegy Ellipta) fluticasone propionate 220 2 inh INHALATION BID 08/30/21 01/21/22 mcg/actuation HFA aerosol inhaler (Flovent HFA) levothyroxine 150 mcg tablet 150 mcg PO DAILY 08/30/21 01/21/22 aripiprazole 5 mg tablet 5 mg PO HS 10/16/21 01/21/22 ascorbic acid (vitamin C) 500 mg 1,000 mg PO BID #60 tab 10/21/21 01/21/22 tablet (Vitamin C) quetiapine 25 mg tablet 50 mg PO HS #20 tab 10/21/21 01/21/22 cefpodoxime 200 mg tablet 200 mg PO BID #10 tab 12/08/21 01/21/22 lidocaine 5 % topical patch 1 patch TOPICAL Q24H #4 ea 01/15/22 (Lidoderm) aripiprazole 5 mg tablet (Abilify) 5 mg PO HS 01/21/22 01/21/22 ascorbic acid (vitamin C) 500 mg 1,000 mg PO BID 01/21/22 01/21/22 tablet diazepam 5 mg tablet 5 mg PO PRN PRN 01/21/22 01/21/22 ondansetron HCl 4 mg tablet 4 mg PO PRN PRN 01/21/22 01/21/22 prednisone 20 mg tablet 40 mg PO BID 01/21/22 01/21/22 Previous Rx's Medication Instructions Recorded ipratropium 0.5 mg-albuterol 3 mg 3 ml UPD Q4H PRN PRN #180 ml 10/07/20 (2.5 mg base)/3 mL nebulization soln pantoprazole 40 mg tablet,delayed 40 mg PO DAILY@0730 #30 tab 10/07/20 release apixaban 5 mg tablet (Eliquis) 5 mg PO BID #71 tab 06/16/21 ascorbic acid (vitamin C) 500 mg 1,000 mg PO BID #60 tab 10/21/21 tablet (Vitamin C) quetiapine 25 mg tablet 50 mg PO HS #20 tab 10/21/21 cefpodoxime 200 mg tablet 200 mg PO BID #10 tab 12/08/21 lidocaine 5 % topical patch 1 patch TOPICAL Q24H #4 ea 01/15/22 (Lidoderm) Allergies Allergy/AdvReac Type Severity Reaction Status Date / Time Penicillins Allergy Intermediate Swelling/Ed Verified 01/21/22 02:01 demond Bees Allergy Uncoded 01/21/22 02:01 General KAYA: 3 Review of Systems Narrative: 08/31 Review of Systems completed and is negative except as stated above in HPI (Systems reviewed: Const, Eyes, ENT, Resp, CV, GI, , MSK, Skin, Neuro) PFSH All Active Problems (Updated 01/21/22 @ 03:43 by Richard Verdugo MD) Hypoxemia (Acute) Back pain (Acute) Cellulitis (Acute) Respiratory failure with hypoxia (Acute) COVID-19 (Acute) COPD (chronic obstructive pulmonary disease) (Chronic) Low back pain (Acute) Noncompliance with medication regimen (Acute) Pain, joint, knee, right (Acute) Fall (Acute) Blunt head trauma (Acute) Blunt injury of back (Acute) Fall (Acute) Contusion (Acute) Auditory hallucination (Acute) Fall (Acute) Acute exacerbation of chronic obstructive pulmonary disease (COPD) (Acute) Hallucinations (Chronic) Discharge planning issues (Acute) DVT prophylaxis (Acute) Community acquired pneumonia (Acute) Abdominal pain (Acute) Vertigo (Acute) Diverticulosis (Chronic) Cholelithiasis (Chronic) Nausea vomiting and diarrhea (Acute) Unsteady gait when walking (Acute) Constipation (Chronic) Memory impairment (Chronic) 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) Osteoarthritis of right knee (Chronic) Medical History Aneurysm of infrarenal abdominal aorta CKD (chronic kidney disease) stage 3, GFR 30-59 ml/min COPD (chronic obstructive pulmonary disease) Failure to thrive in adult Fracture of both ankles Hearing loss History of blood transfusion Hx of hyperlipidemia Hypertension Hypothyroidism Non-insulin dependent diabetes mellitus Obesity 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 Pulmonary embolism Seborrheic keratosis Smoker Surgical History History of bilateral tubal ligation History of hernia repair Family History Father Diabetes Social History Smoking/Tobacco Use Status: Current every day Tobacco Type: cigarettes Years smoked: 58 Tobacco: How many years used: 15 Counseling given: provider counseling and support medications Smoking risk assessment performed?: Yes Alcohol Intake: never Drug use: Never Substance use type: does not use Household members: none Housing: apartment Number of Children: 3 number of grandchildren: 1 What is your relationship status?: Panel score (0-1 are the most socially isolated patients): 0 What type of physical activity do you participate in: walking Seatbelt use: always Do you feel safe at home: Yes Do you feel safe in your relationship?: Yes Exam Narrative Exam Narrative: Const: Obese elderly female in NAD. HEENT: NC/AT. Normal facial exam. Eyes: Normal conjunctiva and sclera. Neck: Supple. Trachea midline. Lungs: Normal respiratory effort but prolonged expiratory phase. Lungs with diffuse wheeze and rhonchi. Cor: RRR without murmur but distant. Good radial pulses. GI: Soft. NT/ND. No guarding or rebound. Neuro: A+O x 3. Normal speech, mentation. Cranial nerves II - XII grossly intact. No gross motor or sensory deficit. Ext: No C/C. BLE edema with venous stasis changes. Skin: Warm and dry without rash. Psych: Flat affect. Normal mood.
--- NOTE | 2022-01-21 01:00 | RT.EKG_ITS ---
APPROVED REPORT Exam: Resting ECG Reason for Exam: Patient Location: E HR:104 bpm ECG Measurements Heart Rate 104 AXIS WI 132 P 85 QRSd 94 QRS -43 QT 332 T 64 QTc 437 Conclusion Sinus tachycardia...rate> 99 Left axis deviation...QRS axis (-30,-90) There are no significant changes compared to prior EKG performed on 12/05/2021 at 00:25.
--- NOTE | 2022-01-21 01:00 | DI.RAD_ITS ---
Exam(s) XR PORTABLE CHEST AP EXAM: XR PORTABLE CHEST AP CLINICAL HISTORY: SOB TECHNIQUE: COMPARISON: CR,XR XR PORTABLE CHEST AP from 12/05/2021 FINDINGS: Portable semi upright chest at 0122 hours. The heart is not enlarged. In comparison with prior examination December 05, there is markedly incr eased opacity at the right lung base, probably predominantly involving right lower lobe. There also appears to be a right pleural effusion. Left lung remains clear with no left pleural effusion. IMPRESSION: The appearance is suggestive of a worsening pneumonia of the right lung base. Appropriate follow-up films requested. RADIATION DOSE DELIVERED: Total DLP
[2022-01-21] MEDS: Albuterol/Ipratropium 3 ML UPD VIAL UPD ×5 (01:35→20:28)
--- NOTE | 2022-01-21 01:36 | DI.VRAD_ITS ---
PROCEDURE INFORMATION: Exam: XR Chest Exam date and time: 01/21/2022 1:12 AM Age: 76 years old Clinical indication: Shortness of breath; Patient HX: SOB TECHNIQUE: Imaging protocol: XR of the chest. Views: 1 view. COMPARISON: XR PORTABLE CHEST AP 12/05/2021 1:11 AM FINDINGS: Limited due to positioning/rotation Lungs: Right middle/lower lobe opacities Pleural spaces: Small right pleural effusion. No pneumothorax. Heart/Mediastinum: No cardiomegaly. Bones/joints: Unremarkable. IMPRESSION: Right middle/lower lobe opacities and small right pleural fluid Dictated and Authenticated by: Hever Childress MD. Ordering:KAM Ramos MD
[2022-01-21] MEDS: levoFLOXacin 750 MG/150 ML BAG 100 MG IVPB (02:33)
[2022-01-21] MEDS: Normal Saline 1,000 ML 125 ML IV (02:34)
[2022-01-21 02:35] LABS: BE (Venous) 4 mmol/L (-2-3); HCO3 (Venous) 29 mmol/L (23-28); O2 Sat (Venous) 76 %; TCO2 (Venous) 26 mmol/L (24-29); pCO2 (Venous) 52 mmHg (41-51); pH (Venous) 7.36 (7.31-7.41); pO2 (Venous) 41 mmHg
[2022-01-21 02:39] LABS: Abs Immature Grans 0.05 10^3/uL (0.0-0.06); HCT 41.2 % (36.0-46.0); HGB 12.8 g/dL (11.2-15.7); MCH 28.7 pg (27.0-33.0); MCHC 31.1 % (32.0-36.0); MCV 92.4 fL (80-95); MPV 11.6 fL (8.0-11.0); Nucleated RBC 0 %; Platelet Count 145 10^3/uL (130-400); RBC 4.46 10^6/uL (3.93-5.22); RDW 15.8 % (11.7-14.6); RDW-SD 54.1 fL; WBC 11.16 10^3/uL (4.4-10.8)
--- NOTE | 2022-01-21 02:45 | DI.CT_ITS ---
Exam(s) CT HEAD CERVICAL SPINE WO EXAM: CT HEAD CERVICAL SPINE WO COMPARISON: CT CT HEAD CERVICAL SPINE WO from 09/19/2021 FINDINGS: CT examination of the cervical spine was performed without contrast administration. Motion artifact degrades image quality. There is no evidence of acute cervical spine fracture or dislocation. Intervertebral disc spaces are well maintained. Tracheolaryngeal structures appear intact. No cervical mass or adenopathy. Noncontrast cranial CT was performed. Motion artifact degrades the images obtained. Ventricular system is normal in appearance. No evidence of acute intracranial hemorrhage, mass effect, or midline shift. Please note that subtle abnormalities might not be appreciated on this motion artifact limited scan. No calvarial fracture. The orbital and temporal bone structures appear intact. Visualized mastoid air cells and paranasal sinuses appear clear. IMPRESSION: No evidence of acute cervical spine injury. Motion limited study. No evidence of acute intracranial injury. Motion limited study. RADIATION DOSE DELIVERED: 1,390.13mGy.cm Total DLP 1,390.13mGy.cm Total DLP !Error CTDIvol DATA REPOSITORY: All CT scans at this facility are submitted to the National Radiology Data Registry (NRDR) Dose Index Registry (DIR) with the [employer] (ACR). RADIATION OPTIMIZATION: All CT scans at this facility use at least one of these dose optimization te chniques: automated exposure control; mA and/or kV adjustment per patient size (includes targeted exa ms where dose is matched to clinical indication); or iterative reconstruction.
[2022-01-21 02:54] LABS: ALT 26 U/L (14-59); AST 30 U/L (15-37); Albumin 2.8 g/dL (3.4-5.0); Alkaline Phosphatase 113 U/L (46-116); Anion Gap 7.9 mmol/L (3-11); BUN 46 mg/dL (7-18); Bilirubin, Total 0.5 mg/dL (0.2-1.0); CO2 27.1 mmol/L (21.0-32.0); CREATININE 1.3 mg/dL (0.55-1.02); Calcium 9.3 mg/dL (8.5-10.1); Chloride 102 mmol/L (98-107); Estimated GFR 40.04 (mL/min/1.73m2); Glucose 108 mg/dL (74-106); Magnesium 2.3 mg/dL (1.8-2.4); Potassium 4.2 mmol/L (3.5-5.1); Sodium 137 mmol/L (136-145); Total Protein 7.4 g/dL (6.4-8.2); Troponin I < 50 ng/L (<or=60)
[2022-01-21 02:57] LABS: Absolute Monocyte Count 0.45 10^3/uL (0.1-0.8); Absolute Neutrophil Count 9.71 10^3/uL (1.2-6.7); Bands % 4; Diff Comment Manual Differential; RBC Morphology Normal
--- NOTE | 2022-01-21 03:52 | DI.VRAD_ITS ---
PROCEDURE INFORMATION: Exam: CT Head Without Contrast Exam date and time: 01/21/2022 2:56 AM Age: 76 years old Clinical indication: Injury or trauma; Blunt trauma (contusions or hematomas); Patient HX: Fall - head/neck trauma on eliquis TECHNIQUE: Imaging protocol: Computed tomography of the head without contrast. COMPARISON: CT HEAD CERVICAL SPINE WO 09/19/2021 2:27 AM FINDINGS: Limited due to motion artifact Brain: No hemorrhage. Unremarkable white matter. No mass effect. Cerebral ventricles: No ventriculomegaly. Paranasal sinuses: Visualized sinuses are unremarkable. No fluid levels. Mastoid air cells: Visualized mastoid air cells are well aerated. Bones/joints: Unremarkable. No acute fracture. Soft tissues: Unremarkable. IMPRESSION: No acute intracranial hemorrhage accounting for motion artifact. Continued CT follow-up as clinically indicated PROCEDURE INFORMATION: Exam: CT Cervical Spine Without Contrast Exam date and time: 01/21/2022 2:56 AM Age: 76 years old Clinical indication: Injury or trauma; Blunt trauma (contusions or hematomas); Patient HX: Fall - head/neck trauma on eliquis TECHNIQUE: Imaging protocol: Computed tomography images of the cervical spine without contrast. COMPARISON: CT HEAD CERVICAL SPINE WO 09/19/2021 2:27 AM FINDINGS: Mildly limited due to motion artifact Bones/joints: No acute fracture. Loss of cervical lordosis is presumably on a degenerative basis. Discs/Spinal canal/Neural foramina: No significant disc protrusion. No severe spinal canal stenosis. No significant neural foraminal narrowing. Lungs: Mild emphysema. Soft tissues: Unremarkable. IMPRESSION: No acute cervical fracture noted Dictated and Authenticated by: Hever Childress MD. Ordering:KAM Ramos MD
--- NOTE | 2022-01-21 04:18 | W.PM.HP.N ---
Date of service: 01/21/22 Time of Service: 04:18 Assessment and Plan Assessment and plan (1) Community acquired pneumonia of right lung: Status: Acute Assessment and plan: broad spectrum antibiotics to cover for Strep, Staph, gram neg. including Pseudomonas, Klebsiella and Proteus. I agree w/ Dr. Verdugo on use of Levaquin however d/t her use of abilify we will have to monitor her QTc daily. Will encourage her to use acapella and IS. Will give corticosteroids for her COPD and put her on scheduled nebulized bronchodilators and attempt to get sputum for gram stain/culture, fungal culture and mycoplasma PCR. Will get urine antigens for Strep and Legionella. Although she has been vaccinated against SARS-COV2, she should be a PUI until her nasal PCR comes back negative (2) COPD (chronic obstructive pulmonary disease): Status: Chronic Assessment and plan: as above Qualifiers: COPD type: emphysema Emphysema type: centrilobular Qualified Code(s): J43.2 - Centrilobular emphysema (3) Fall: Status: Acute Assessment and plan: will ask P.T. to evaluate her gait stability and strength (4) CKD (chronic kidney disease) stage 3, GFR 30-59 ml/min: Assessment and plan: gently fluid hydration and repeat her BMP tomorrow (5) Hypothyroidism: Assessment and plan: TSH is elevated at 36.1 higher than her previous value on December 05, 2021 and 17.25. I have adjusted her levothyroxine to 175 mcg daily. Qualifiers: Hypothyroidism type: acquired Qualified Code(s): E03.9 - Hypothyroidism, unspecified (6) Non-insulin dependent diabetes mellitus: Assessment and plan: patient has not been on any oral meds or insulin; last A1c was 6.4% on 08/29/21. I will repeat her A1c and monitor glucose bid but if elevated then will increase frequency to AC/HS and cover w/ novolog (7) Smoker: Assessment and plan: apply nicotine patch (8) Chronic anticoagulation: Assessment and plan: continue Eliquis for her hx of PE as long as her CT head and neck is negative History of Present Illness History of Present Illness Chief Complaint: Dizziness, fall, chest pain, shortness of breath Narrative: Fabiola Martínez is a 76-year-old patient who is a smoker, COPD, type 2 diabetes mellitus, pulmonary embolism (chronically anticoagulated with Eliquis), essential hypertension, hypothyroidism, cholelithiasis, diverticulosis, chronic back pain with a prior COVID-19 infection in September 2021, but now vaccinated who now presents from home via EMS after having an episode of lightheadedness and sustaining a fall with a closed head injury but denies loss of consciousness. Patient complained of chest tightness and dyspnea and cough. She was found to have a room air saturation 84% which came up to 94% on 2 L/min per nasal cannula. She has generalized pain from the fall. Evaluation in the ER included CXR that demonstrated significant RML and RLL infiltrate. She was having diffuse wheezing and rhonchi on admission and was treated w/ Duoneb. Labs were significant for VBG w/ PCO2 of 52 which is her baseline. WBC 11,200, normal troponin, normal electrolytes but elevated BUN and creatinine @ 46 and 1.3 suggestive of dehydration. EKG demonstrates sinus tachycardia w/out ischemic changes. CT of head and neck are pending at this time. Patient will be admitted to med/surg on telemetry to monitor for arrhythmias for cause of her dizziness, continue to check serial troponin levels and she will be treated for pneumonia w/ Levaquin and Vancomycin while we attempt to obtain sputum cultures and check urine antigens for Legionella and Strep and we obtain mycoplasma and fungal studies. She is allergic to penicillin and for this reason Levquin was chosen. Vancomycin was added d/t her recent hospitalizations. We will check her for MRSA carrier status. She will continue on iv fluids until hydrated. [facility] All Active Problems (Updated 01/21/22 @ 04:38 by Sandeep Blanton) Community acquired pneumonia of right lung (Acute) Hypoxemia (Acute) Back pain (Acute) Cellulitis (Acute) Respiratory failure with hypoxia (Acute) COPD (chronic obstructive pulmonary disease) (Chronic) Low back pain (Acute) Noncompliance with medication regimen (Acute) Pain, joint, knee, right (Acute) Fall (Acute) Blunt head trauma (Acute) Blunt injury of back (Acute) Fall (Acute) Contusion (Acute) Auditory hallucination (Acute) Fall (Acute) Hallucinations (Chronic) Discharge planning issues (Acute) DVT prophylaxis (Acute) Community acquired pneumonia (Acute) Vertigo (Acute) Diverticulosis (Chronic) Cholelithiasis (Chronic) Nausea vomiting and diarrhea (Acute) Unsteady gait when walking (Acute) Constipation (Chronic) Memory impairment (Chronic) 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) Osteoarthritis of right knee (Chronic) Medical History Aneurysm of infrarenal abdominal aorta Chronic anticoagulation CKD (chronic kidney disease) stage 3, GFR 30-59 ml/min COPD (chronic obstructive pulmonary disease) Failure to thrive in adult Fracture of both ankles Hearing loss History of blood transfusion Hx of hyperlipidemia Hypertension Hypothyroidism Non-insulin dependent diabetes mellitus Obesity 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 Pulmonary embolism Seborrheic keratosis Smoker Surgical History History of bilateral tubal ligation History of hernia repair Family History Father Diabetes Social History Smoking/Tobacco Use Status: Current every day Tobacco Type: cigarettes Years smoked: 58 Tobacco: How many years used: 15 Counseling given: provider counseling and support medications Smoking risk assessment performed?: Yes Alcohol Intake: never Drug use: Never Substance use type: does not use Household members: none Housing: apartment Number of Children: 3 number of grandchildren: 1 What is your relationship status?: Panel score (0-1 are the most socially isolated patients): 0 What type of physical activity do you participate in: walking Seatbelt use: always Do you feel safe at home: Yes Do you feel safe in your relationship?: Yes Meds Allergies and Home Medications Allergies Allergy/AdvReac Type Severity Reaction Status Date / Time Penicillins Allergy Intermediate Swelling/Ed Verified 01/21/22 02:01 demond Bees Allergy Uncoded 01/21/22 02:01 Home Medications Medication Instructions Recorded Confirmed Type aspirin 81 mg tablet,delayed 81 mg PO DAILY 09/22/20 01/21/22 History release ipratropium 0.5 mg-albuterol 3 mg 3 ml UPD Q4H PRN PRN #180 ml 10/07/20 01/21/22 Rx (2.5 mg base)/3 mL nebulization soln pantoprazole 40 mg tablet,delayed 40 mg PO DAILY@0730 #30 tab 10/07/20 01/21/22 Rx release acetaminophen 650 mg 650 mg PO BID 01/01/21 01/21/22 History tablet,extended release (Mapap Arthritis Pain) atorvastatin 80 mg tablet 80 mg PO DAILY 06/15/21 01/21/22 History apixaban 5 mg tablet (Eliquis) 5 mg PO BID #71 tab 06/16/21 01/21/22 Rx docusate sodium 100 mg capsule 100 mg PO BID PRN PRN 08/30/21 01/21/22 History fluticasone fur. 100 mcg-umeclid 1 inh INHALATION DAILY 08/30/21 01/21/22 History 62.5 mcg-vilant 25 mcg inhalat.powder (Trelegy Ellipta) fluticasone propionate 220 2 inh INHALATION BID 08/30/21 01/21/22 History mcg/actuation HFA aerosol inhaler (Flovent HFA) levothyroxine 150 mcg tablet 150 mcg PO DAILY 08/30/21 01/21/22 History aripiprazole 5 mg tablet 5 mg PO HS 10/16/21 01/21/22 History ascorbic acid (vitamin C) 500 mg 1,000 mg PO BID #60 tab 10/21/21 01/21/22 Rx tablet (Vitamin C) quetiapine 25 mg tablet 50 mg PO HS #20 tab 10/21/21 01/21/22 Rx cefpodoxime 200 mg tablet 200 mg PO BID #10 tab 12/08/21 01/21/22 Rx lidocaine 5 % topical patch 1 patch TOPICAL Q24H #4 ea 01/15/22 Rx (Lidoderm) aripiprazole 5 mg tablet (Abilify) 5 mg PO HS 01/21/22 01/21/22 History ascorbic acid (vitamin C) 500 mg 1,000 mg PO BID 01/21/22 01/21/22 History tablet diazepam 5 mg tablet 5 mg PO PRN PRN 01/21/22 01/21/22 History ondansetron HCl 4 mg tablet 4 mg PO PRN PRN 01/21/22 01/21/22 History prednisone 20 mg tablet 40 mg PO BID 01/21/22 01/21/22 History Exam Narrative Exam Narrative: Morbidly obese white female (BMI 40) who appears to be fatigued and not in any acute respiratory distress. HEENT is remarkable for dry mucous membranes. She has her own teeth that are in fair repair. Neck is without JVD. Carotid pulses normal. Lungs with diffuse scattered bilateral wheezes and rhonchi in all lung abebe Heart is regular no appreciable murmur rub Abdomen is obese nondistended soft nontender no bruits no palpable masses Lower extremities without peripheral cyanosis or edema she has normal pedal pulses. Neurologic exam grossly intact no focal motor or sensory deficits. Results Imaging Chest x-ray: report reviewed and image reviewed Labs Result diagrams: 01/21/22 02:25 01/21/22 02:25 Labs: Laboratory Results - last 24 hr 01/21/22 01/21/22 01/21/22 01:07 02:25 02:25 WBC 11.16 H RBC 4.46 Hgb 12.8 Hct 41.2 MCV 92.4 MCH 28.7 MCHC 31.1 L RDW 15.8 H Plt Count 145 MPV 11.6 H Immature Gran % 0.0 Neutrophils % 83.0 Band Neutrophils % 4 Lymphocytes % 9.0 Monocytes % 4.0 Eosinophils % 0.0 Basophils % 0.0 Nucleated RBC % 0 Absolute Neutrophils 9.71 H Absolute Lymphocytes 1.00 L Absolute Monocytes 0.45 Absolute Eosinophils 0.00 Absolute Basophils 0.00 RBC Morphology Normal D-Dimer Cancelled VBG pH VBG pCO2 VBG pO2 VBG HCO3 VBG Total CO2 VBG O2 Saturation VBG Base Excess Sodium 137 Potassium 4.2 Chloride 102 Carbon Dioxide 27.1 Anion Gap 7.9 BUN 46 H Creatinine 1.3 H Estimated GFR/1.73 m2 40.04 Glucose 108 H Calcium 9.3 Magnesium 2.3 Total Bilirubin 0.5 AST 30 ALT 26 Alkaline Phosphatase 113 Troponin I < 50 Total Protein 7.4 Albumin 2.8 L COVID-19 Source 01/21/22 01/21/22 02:25 02:45 WBC RBC Hgb Hct MCV MCH MCHC RDW Plt Count MPV Immature Gran % Neutrophils % Band Neutrophils % Lymphocytes % Monocytes % Eosinophils % Basophils % Nucleated RBC % Absolute Neutrophils Absolute Lymphocytes Absolute Monocytes Absolute Eosinophils Absolute Basophils RBC Morphology D-Dimer VBG pH 7.36 VBG pCO2 52 H VBG pO2 41 VBG HCO3 29 H VBG Total CO2 26 VBG O2 Saturation 76 VBG Base Excess 4 H Sodium Potassium Chloride Carbon Dioxide Anion Gap BUN Creatinine Estimated GFR/1.73 m2 Glucose Calcium Magnesium Total Bilirubin AST ALT Alkaline Phosphatase Troponin I Total Protein Albumin COVID-19 Source Nasal/Nares Last Vital Signs Temp 36.3 C L 01/21/22 01:23 Pulse 105 H 03/06/22 03:48 Resp 42 H 01/21/22 03:50 BP 124/51 L 01/21/22 03:48 Pulse Ox 97 01/21/22 03:36
[2022-01-21 04:36] LABS: Troponin I < 50 ng/L (<or=60)
[2022-01-21 05:09] LABS: Source Nasal/Nares
[2022-01-21 05:34] LABS: T4 1.3 ug/mL (4.7-13.3); TSH 36.15 uIU/mL (0.36-3.74)
[2022-01-21 05:47] LABS: COVID-19 PCR Negative (Negative)
[2022-01-21] MEDS: VANCOMYCIN 2,000 MG in Normal Saline 500 ML 250 MG IVPB (05:54)
--- NOTE | 2022-01-21 06:25 | NUR.NOTE ---
MD informed that patient is covid negative. Ordered discontinuation of PUI status.
[2022-01-21] MEDS: Albuterol 2.5 MG/3 ML INH SOLN VIAL UPD (06:30)
[2022-01-21] MEDS: Levothyroxine 150 MCG TAB PO (06:30)
[2022-01-21 06:56] LABS: Lab Add On Test DONE
[2022-01-21 07:23] LABS: Lab Add On Test DONE
[2022-01-21] MEDS: Ascorbic Acid 500 MG TAB 1000 MG PO ×2 (07:44→20:31)
[2022-01-21] MEDS: Apixaban 5 MG TAB PO ×2 (07:44→20:31)
[2022-01-21] MEDS: Acetaminophen 325 MG TAB 650 MG PO ×2 (07:45→20:32)
[2022-01-21] MEDS: Pantoprazole 40 MG TABCR PO (07:45)
[2022-01-21] MEDS: predniSONE 20 MG TAB 60 MG PO (07:45)
[2022-01-21 07:46] LABS: Bilirubin Negative (Negative); Blood Trace-intact (Negative); Clarity Clear (Clear); Glucose Negative (Negative); Ketones Negative (Negative); Leukocyte Esterase Negative (Negative); Nitrite Negative (Negative); Specific Gravity >= 1.030 (1.005-1.025); Urobilinogen 0.2 EU/dL (Up TO 0.2); pH 5.5 (5-8)
[2022-01-21] MEDS: Lactated Ringers 1,000 ML 150 ML IV (07:50)
[2022-01-21 07:52] LABS: Bacteria Moderate HPF (Negative); C & S Indicated? No/Sq. Contamination; Casts 0-2 Coarse Granular LPF (Negative); Crystals Negative HPF (Negative); Epithelial Cells Many HPF (Negative); Mucus Trace (Negative); RBC 0-2 HPF (0-2); WBC 0-2 HPF (0-5)
[2022-01-21 08:02] LABS: Procalcitonin 6.1 ng/mL
[2022-01-21 08:59] LABS: Troponin I < 50 ng/L (<or=60)
[2022-01-21 09:01] LABS: FREE T4 0.62 ng/dL (0.76-1.46)
[2022-01-21] MEDS: Lidocaine 5% Patch 1 PATCH TP (09:26)
--- NOTE | 2022-01-21 10:12 | IN_ITS ---
Date of service: 01/21/22 Time of Service: 09:25 PT Notes Visit Reasons: pneumonia Inpatient Physical Therapy Evaluation Date: January 21, 2022 Referring Doctor: Sandeep Blanton PT Orders: PT CONSULT: evaluate and treat regarding gait instability; weakness Precautions: Standard, Fall Patient Profile/Admitting Diagnosis: Fabiola is a 76-year-old patient who is a smoker, with history of COPD, type 2 diabetes mellitus, pulmonary embolism (chronically anticoagulated with Eliquis), essential hypertension, hypothyroidism, cholelithiasis, diverticulosis, chronic back pain who presented from home via EMS to the ED after having an episode of lightheadedness and sustaining a fall in her living room with a closed head injury but denies loss of consciousness. PMHX: (Updated 01/21/22 @ 04:38 by Sandeep Blanton) Community acquired pneumonia of right lung (Acute) Hypoxemia (Acute) Back pain (Acute) Cellulitis (Acute) Respiratory failure with hypoxia (Acute) COPD (chronic obstructive pulmonary disease) (Chronic) Low back pain (Acute) Noncompliance with medication regimen (Acute) Pain, joint, knee, right (Acute) Fall (Acute) Blunt head trauma (Acute) Blunt injury of back (Acute) Fall (Acute) Contusion (Acute) Auditory hallucination (Acute) Fall (Acute) Hallucinations (Chronic) Discharge planning issues (Acute) DVT prophylaxis (Acute) Community acquired pneumonia (Acute) Vertigo (Acute) Diverticulosis (Chronic) Cholelithiasis (Chronic) Nausea vomiting and diarrhea (Acute) Unsteady gait when walking (Acute) Constipation (Chronic) Memory impairment (Chronic) 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) Osteoarthritis of right knee (Chronic) Medical History Aneurysm of infrarenal abdominal aorta Chronic anticoagulation CKD (chronic kidney disease) stage 3, GFR 30-59 ml/min COPD (chronic obstructive pulmonary disease) Failure to thrive in adult Fracture of both ankles Hearing loss History of blood transfusion Hx of hyperlipidemia Hypertension Hypothyroidism Non-insulin dependent diabetes mellitus Obesity 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 Pulmonary embolism Seborrheic keratosis Smoker Surgical History History of bilateral tubal ligation History of hernia repair Social History/Home Situation: Lives alone on the first floor of an apartment building, one step to enter. Independent with all mobility of ADLs with single point cane. Receives meals on wheels for her lunch, able to prepare own breakfast and supper. Independent with bathing and dressing. Fabiola does not have a life line in place. Equipment Owned/DME: [facility] Subjective: Fabiola is alert and agreeable to PT consult this morning. She notes that she did not get a lot of sleep last night and is really tired. Declines pain. Objective: General Observation: Patient up sitting in bedside chair with nursing in room. IV L UE, O2 via nasal canula at 3 liters, Pain patch placed on her low back Mental Status: Alert and oriented x3 Pain: Fabiola continually says ow throughout evaluation however upon asking if she is in pain declines. Does complain of a bum right shoulder. Vital Signs: BP 74/47 mmHg; HR 90 bpm ROM: Right Upper Extremity: Shoulder Flexion limited to 90 degrees AA 100 degrees. Shoulder abduction 90 degrees. ER limited to neutral at side.Elbow flexion WFL. Wrist flexion WFL. Functional opening and closing of hand WFL. Left Upper Extremity: Shoulder Flexion WFL. Shoulder abduction WFL.ER 20 degrees Elbow flexion WFL. Wrist flexion WFL. Functional opening and closing of hand WFL. Right Lower Extremity: Hip flexion 100 degrees while seated on chair. Hip abduction WFL. Knee flexion WFL. Ankle dorsiflexion to neutral only. Ankle plantarflexion WFL. Left Lower Extremity: Hip [id number] degrees while seated on chair. Hip abduction WFL. Knee flexion WFL. Ankle dorsiflexion to neutral only. Ankle plantarflexion WFL. Strength: Right Upper Extremity: Shoulder flexors 3+/5. Shoulder abductors 3+/5. Elbow flexors 4+/5. Elbow extensors 4/5. Senior Clinical Project Manager strong. Left Upper Extremity: Shoulder flexors 4/5. Shoulder abductors 4/5. Elbow flexors 5/5. Elbow extensors 5/5. Senior Clinical Project Manager strong. Right Lower Extremity: Hip flexors 4/5. Hip abductors 4-/5. Knee flexors 4+/5. Knee extensors 4/5. Ankle dorsiflexors 4/5. Ankle plantarflexors 4-/5. Left Lower Extremity: Hip flexors 4/5. Hip abductors 4-/5. Knee flexors 4+/5. Knee extensors 4/5. Ankle dorsiflexors 4/5. Ankle plantarflexors 4-/5. Bed Mobility/Transfers: Sit to stand SBA Stand to sit SBA Bed to chair SBA Gait: Bed to chair mild SOB. Desaturated to 85% on 3 liters after activity. Required 3Lof oxygen to resaturate back to 92% 2 minute recovery. Balance: Static Sitting: Normal Dynamic Sitting: Normal Static Standing: Fair Dynamic Standing: Fair Special Tests: Mobility Limitations Standardized Measure [facility] AM-PAC 6 clicks Basic Mobility Inpatient Short Form: Raw Score: 22 CMS Score: 21% Informed Consent/Education: Patient was instructed in purpose of PT consult and plan of care. Agreeable to proceed with established PT POC to achieve personal goals. Assessment: Patient is a 76 year old female referred to physical therapy services with the diagnosis of pneumonia,COPD,s/p fall. Patient presents with clinical signs and symptoms consistent with current/admitting diagnoses that have resulted to mobility limitations, gait instability, generalized weakness, and overall ADL decline as demonstrated by the following impairment level findings: 1. Decreased strength to B UE/LE major muscle groups 2. Impaired standing balance 3. Impaired activity tolerance 4. Shortness of breath Impairments are contributing to the following functional limitations: 1. Difficulty with ambulation without assistive device and physical assistance 2. Increased completion time for mobility ADL performance 3. Increased risk for falls 4. Difficulty with managing steps alone safely Patient is assessed as a [id number] moderate complexity based on the following: History: 76-year-old female with past medical history as indicated above Examination: Demonstrable impairment in strength, balance, and mobility level with underlying impairments and functional limitations as exhibited above as well as deficit score of 21% utilizing the [facility] Mobility Inpatient Short Form Presentation: Evolving Decision Makin moderate complexity Goals: Goals X1 week 1. Supine-Sit Independent 2. Sit-Supine Independent 3. Sit-Stand Independent 4. Stand-Sit Independent 5. Bed-Chair Independent 6. Chair-Bed Independent 7. Gait Independent with least restrictive assistive device as needed 100 ft or greater with 8. Stairs up/down 1 step to enter apartment 9. Balance: Improved standing balance to good Plan of Care/Treatment Plan: 1-2x/day, 7 days/week x 1 week. Plan of care has been reviewed with the BALE STACKER providing the service under Physical Therapy direction. Initiate Physical Therapy intervention for strengthening, bed mobility, transfers, gait, stairs, balance training, use of assistive device. DISCHARGE RECOMMENDATIONS: Home with services. Patient will benefit from home health PT services in order to progress mobility level using least restrictive assistive ambulatory device, assess home safety, identify additional equipment needs, and establish a functional maintenance program that will increase ability of patient to remain at home. TREATMENT CODE/TIME: 43858, IE, 9:25; 20 minutes PETER Stephenson [facility] Disclaimer: This note was created using [employer] voice recognition software. It was reviewed for major content. However, there may be multiple small discrepancies and errors due to the voice recognition aspects of the software.
--- NOTE | 2022-01-21 10:18 | INITIAL_ITS ---
- If Service Date Differs Date of service: 01/21/22 Time of Service: 10:18 Care Management Initial Assess REASON FOR HOSPITALIZATION:: Pneumonia PAST MEDICAL HISTORY/PAST SURGICAL HISTORY:: All Active Problems. Community acquired pneumonia of right lung (Acute). Hypoxemia (Acute). Back pain (Acute). Cellulitis (Acute). Respiratory failure with hypoxia (Acute). COPD (chronic obstructive pulmonary disease) (Chronic). Low back pain (Acute). Noncompliance with medication regimen (Acute). Pain, joint, knee, right (Acute). Fall (Acute). Blunt head trauma (Acute). Blunt injury of back (Acute). Fall (Acute). Contusion (Acute). Auditory hallucination (Acute). Fall (Acute). Hallucinations (Chronic). Discharge planning issues (Acute). DVT prophylaxis (Acute). Community acquired pneumonia (Acute). Vertigo (Acute). Diverticulosis (Chronic). Cholelithiasis (Chronic). Nausea vomiting and diarrhea (Acute). Unsteady gait when walking (Acute). Constipation (Chronic). Memory impairment (Chronic). Osteoarthritis of proximal interphala ngeal (PIP) joint of left little finger (Chronic). Osteoarthritis of right knee (Chronic). Medical History. Aneurysm of infrarenal abdominal aorta. Chronic anticoagulation. CKD (chronic kidney disease) stage 3, GFR 30-59 ml/min. COPD (chronic obstructive pulmonary disease). Failure to thrive in adult. Fracture of both ankles. Hearing loss. History of blood transfusion. Hx of hyperlipide linnette. Hypertension. Hypothyroidism. Non-insulin dependent diabetes mellitus. Obesity. 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. Pulmonary embolism. Seborrheic keratosis. Smoker. Surgical History. History of bilateral tubal ligation. History of hernia repair PREVIOUS FUNCTIONAL STATUS/SOCIAL/FAMILY SUPPORTS:: Fabiola lives alone in an apartment in [facility]. She has three sons but 2 of them live out of state. Fabiola reportedly has several friends who live locally who are supportive of her. She uses [employer] for transportation, has a cane and and is independent with her ADL's at baseline. CURRENT FUNCTIONAL STATUS:: Fabiola was sitting up in her chair when HORACE met with her. She reported that she is not feeling great today. Per provider, she would benefit from a short term rehab stay prior to returning home. HORACE discussed this with Fabiola, who agreed that she would benefit from rehab, and asked that a referral be sent to [facility]. CM sent the referral, at her request. CM will continue to follow. ADVANCE DIRECTIVES:: None on file. Has patient been provided with info about the portal/API?: Yes Did the patient sign up for the portal?: No CODE STATUS:: Full Code INSURANCE COVERAGE / FINANCIAL ISSUES:: [facility] [employer] of [place] and Medicaid. CURRENT HOME/COMMUNITY SERVICES/EQUIPMENT:: Uses a cane. [facility] for transportation. [facility] PRIMARY CARE PHYSICIAN:: Kathleen Azevedo NP ([facility]). POTENTIAL DISCHARGE NEEDS:: Evaluation for further needs, follow up with PCP and discharge plan of care. PATIENT/FAMILY EDUCATION NEEDS:: Review of discharge instructions, including limitations, medications, and follow up plan of care; discuss Ask Me Three and self-management. ANTICIPATED BARRIERS TO DISCHARGE:: None identified at this time. TRANSPORTATION:: Via [facility] private vehicle, coordinated by CM PLAN:: Fabiola will go to a SNF for short term rehab vs return home with services when medically cleared by provider. She will follow up with her PCP, community providers, and plan of care as prescribed. Wilkinson will be transported via [facility] vs facility w/c van when ready. CM will continue to follow.
[2022-01-21] MEDS: Budesonide/Formoterol 80/4.5 6.9 GM 60 PUFF INH IH ×2 (10:53→20:33)
[2022-01-21] MEDS: CEFEPIME 2 GM in Normal Saline 100 ML IVPB (12:18)
--- NOTE | 2022-01-21 13:40 | PGE_ITS ---
Date of Service Date of service: 01/21/22 Time of Service: 13:40 Assessment and Plan Assessment and plan (1) Community acquired pneumonia of right lung: Status: Acute Assessment and plan: broad spectrum antibiotics to cover for Strep, Staph, gram neg. including Pseudomonas, Klebsiella and Proteus. will continue with vancomycin and cefepime as she was recently on levaquin. Will encourage her to use acapella and IS. Will give corticosteroids for her COPD and put her on scheduled nebulized bronchodilators and attempt to get sputum for gram stain/culture, fungal culture and mycoplasma PCR. Will get urine antigens for Strep and Legionella. has been vaccinated against SARS-COV2, nasal PCR negative (2) COPD (chronic obstructive pulmonary disease): Status: Chronic Assessment and plan: as above Qualifiers: COPD type: emphysema Emphysema type: centrilobular Qualified Code(s): J43.2 - Centrilobular emphysema (3) Fall: Status: Acute Assessment and plan: will ask P.T. to evaluate her gait stability and strength (4) CKD (chronic kidney disease) stage 3, GFR 30-59 ml/min: Assessment and plan: gently fluid hydration and repeat her BMP tomorrow (5) Hypothyroidism: Assessment and plan: TSH is elevated at 36.1 higher than her previous value on December 05, 2021 and 17.25. Continue increased levothyroxine to 175 mcg daily. consider medication non compliance Qualifiers: Hypothyroidism type: acquired Qualified Code(s): E03.9 - Hypothyroidism, unspecified (6) Non-insulin dependent diabetes mellitus: Assessment and plan: patient has not been on any oral meds or insulin; last A1c was 6.4% on 08/29/21. A1C pending for am monitor glucose bid but if elevated then will increase frequency to AC/HS and cover w/ novolog anticipate hyperglycemia with steroids. (7) Smoker: Assessment and plan: apply nicotine patch (8) Chronic anticoagulation: Assessment and plan: continue Eliquis for her hx of PE (9) Discharge planning issues: Status: Acute Assessment and plan: case management will be following I anticipate a discharge to [facility] facility. discussed with DR Schaffer Subjective Subjective Patient reports: no new complaints, feels better, tolerating liquids well, tolerating a regular diet, shortness of breath and afebrile Exam Const General: cooperative, comfortable, no acute distress, frail appearing and ill appearing chronically Nutritional Appearance: obese Orientation: alert, awake and oriented x3 Other: patient is poor historian [facility] Head: normal to inspection, normocephalic and atraumatic Mouth: oral mucosae normal Chest Chest: normal inspection of the chest Resp Effort & Inspection: normal respiratory effort Auscultation: diminished lung sounds (throughout, no coarse breath sound or wheezing noted) Cardio Rate: regular rate Rhythm: regular rhythm GI Inspection: obesity Skin General skin exam: no rashes or lesions noted Extrem General: normal to inspection and full ROM Objective Last Vital Signs Temp 36.8 C 01/21/22 12:01 Pulse 91 H 01/21/22 12:01 Resp 20 01/21/22 12:01 BP 103/62 01/21/22 12:01 Pulse Ox 93 01/21/22 12:01 Laboratory Results - last 24 hr 01/21/22 01/21/22 01/21/22 01:07 02:25 02:25 WBC 11.16 H RBC 4.46 Hgb 12.8 Hct 41.2 MCV 92.4 MCH 28.7 MCHC 31.1 L RDW 15.8 H Plt Count 145 MPV 11.6 H Immature Gran % 0.0 Neutrophils % 83.0 Band Neutrophils % 4 Lymphocytes % 9.0 Monocytes % 4.0 Eosinophils % 0.0 Basophils % 0.0 Nucleated RBC % 0 Absolute Neutrophils 9.71 H Absolute Lymphocytes 1.00 L Absolute Monocytes 0.45 Absolute Eosinophils 0.00 Absolute Basophils 0.00 RBC Morphology Normal D-Dimer Cancelled VBG pH VBG pCO2 VBG pO2 VBG HCO3 VBG Total CO2 VBG O2 Saturation VBG Base Excess Sodium 137 Potassium 4.2 Chloride 102 Carbon Dioxide 27.1 Anion Gap 7.9 BUN 46 H Creatinine 1.3 H Estimated GFR/1.73 m2 40.04 Glucose 108 H Calcium 9.3 Magnesium 2.3 Total Bilirubin 0.5 AST 30 ALT 26 Alkaline Phosphatase 113 Troponin I < 50 Total Protein 7.4 Albumin 2.8 L Procalcitonin TSH Free T4 Thyroxine (T4) Urine Color Urine Clarity Urine pH Ur Specific [place] Urine Protein Urine Ketones Urine Blood Urine Nitrite Urine Bilirubin Urine Urobilinogen Ur Leukocyte Esterase Urine RBC Urine WBC Ur Epithelial Cells Urine Crystals Urine Bacteria Urine Casts Urine Mucus Ur Culture Indicated? Urine Glucose COVID-19 Source SARS-CoV-2 (PCR) Add-On Test Request 01/21/22 01/21/22 01/21/22 02:25 02:25 02:45 WBC RBC Hgb Hct MCV MCH MCHC RDW Plt Count MPV Immature Gran % Neutrophils % Band Neutrophils % Lymphocytes % Monocytes % Eosinophils % Basophils % Nucleated RBC % Absolute Neutrophils Absolute Lymphocytes Absolute Monocytes Absolute Eosinophils Absolute Basophils RBC Morphology D-Dimer VBG pH 7.36 VBG pCO2 52 H VBG pO2 41 VBG HCO3 29 H VBG Total CO2 26 VBG O2 Saturation 76 VBG Base Excess 4 H Sodium Potassium Chloride Carbon Dioxide Anion Gap BUN Creatinine Estimated GFR/1.73 m2 Glucose Calcium Magnesium Total Bilirubin AST ALT Alkaline Phosphatase Troponin I Total Protein Albumin Procalcitonin TSH 36.15 H Free T4 Thyroxine (T4) 1.3 L Urine Color Urine Clarity Urine pH Ur Specific [place] Urine Protein Urine Ketones Urine Blood Urine Nitrite Urine Bilirubin Urine Urobilinogen Ur Leukocyte Esterase Urine RBC Urine WBC Ur Epithelial Cells Urine Crystals Urine Bacteria Urine Casts Urine Mucus Ur Culture Indicated? Urine Glucose COVID-19 Source Nasal/Nares SARS-CoV-2 (PCR) Negative Add-On Test Request 01/21/22 01/21/22 01/21/22 04:08 04:45 04:45 WBC RBC Hgb Hct MCV MCH MCHC RDW Plt Count MPV Immature Gran % Neutrophils % Band Neutrophils % Lymphocytes % Monocytes % Eosinophils % Basophils % Nucleated RBC % Absolute Neutrophils Absolute Lymphocytes Absolute Monocytes Absolute Eosinophils Absolute Basophils RBC Morphology D-Dimer VBG pH VBG pCO2 VBG pO2 VBG HCO3 VBG Total CO2 VBG O2 Saturation VBG Base Excess Sodium Potassium Chloride Carbon Dioxide Anion Gap BUN Creatinine Estimated GFR/1.73 m2 Glucose Calcium Magnesium Total Bilirubin AST ALT Alkaline Phosphatase Troponin I < 50 Total Protein Albumin Procalcitonin 6.1 TSH Free T4 Thyroxine (T4) Urine Color Urine Clarity Urine pH Ur Specific [place] Urine Protein Urine Ketones Urine Blood Urine Nitrite Urine Bilirubin Urine Urobilinogen Ur Leukocyte Esterase Urine RBC Urine WBC Ur Epithelial Cells Urine Crystals Urine Bacteria Urine Casts Urine Mucus Ur Culture Indicated? Urine Glucose COVID-19 Source SARS-CoV-2 (PCR) Add-On Test Request DONE 01/21/22 01/21/22 01/21/22 07:35 08:30 08:30 WBC RBC Hgb Hct MCV MCH MCHC RDW Plt Count MPV Immature Gran % Neutrophils % Band Neutrophils % Lymphocytes % Monocytes % Eosinophils % Basophils % Nucleated RBC % Absolute Neutrophils Absolute Lymphocytes Absolute Monocytes Absolute Eosinophils Absolute Basophils RBC Morphology D-Dimer VBG pH VBG pCO2 VBG pO2 VBG HCO3 VBG Total CO2 VBG O2 Saturation VBG Base Excess Sodium Potassium Chloride Carbon Dioxide Anion Gap BUN Creatinine Estimated GFR/1.73 m2 Glucose Calcium Magnesium Total Bilirubin AST ALT Alkaline Phosphatase Troponin I < 50 Total Protein Albumin Procalcitonin TSH Free T4 0.62 L Thyroxine (T4) Urine Color Yellow Urine Clarity Clear Urine pH 5.5 Ur Specific [place] >= 1.030 H Urine Protein 100 H Urine Ketones Negative Urine Blood Trace-intact H Urine Nitrite Negative Urine Bilirubin Negative Urine Urobilinogen 0.2 Ur Leukocyte Esterase Negative Urine RBC 0-2 Urine WBC 0-2 Ur Epithelial Cells Many Urine Crystals Negative Urine Bacteria Moderate Urine Casts 0-2 Coarse Granular Urine Mucus Trace Ur Culture Indicated? No/Sq. Contamination Urine Glucose Negative COVID-19 Source SARS-CoV-2 (PCR) Add-On Test Request 01/21/22 Unknown WBC RBC Hgb Hct MCV MCH MCHC RDW Plt Count MPV Immature Gran % Neutrophils % Band Neutrophils % Lymphocytes % Monocytes % Eosinophils % Basophils % Nucleated RBC % Absolute Neutrophils Absolute Lymphocytes Absolute Monocytes Absolute Eosinophils Absolute Basophils RBC Morphology D-Dimer VBG pH VBG pCO2 VBG pO2 VBG HCO3 VBG Total CO2 VBG O2 Saturation VBG Base Excess Sodium Potassium Chloride Carbon Dioxide Anion Gap BUN Creatinine Estimated GFR/1.73 m2 Glucose Calcium Magnesium Total Bilirubin AST ALT Alkaline Phosphatase Troponin I Total Protein Albumin Procalcitonin TSH Free T4 Thyroxine (T4) Urine Color Urine Clarity Urine pH Ur Specific [place] Urine Protein Urine Ketones Urine Blood Urine Nitrite Urine Bilirubin Urine Urobilinogen Ur Leukocyte Esterase Urine RBC Urine WBC Ur Epithelial Cells Urine Crystals Urine Bacteria Urine Casts Urine Mucus Ur Culture Indicated? Urine Glucose COVID-19 Source SARS-CoV-2 (PCR) Add-On Test Request DONE
[2022-01-21 15:02] LABS: Lab Add On Test DONE
[2022-01-21 19:40] LABS: Legionella Ag Detection Urine Negative (Negative)
[2022-01-21] MEDS: Atorvastatin 40 MG TAB 80 MG PO (20:31)
[2022-01-21] MEDS: Normal Saline Flush 10 ML SYR IVP ×2 (20:32→22:49)
[2022-01-21] MEDS: Nystatin POWDER 15 GM JAR TP (20:33)
[2022-01-21] MEDS: Patch Removal 1 EACH TP (22:46)
[2022-01-21] MEDS: QUEtiapine 25 MG TAB 50 MG PO (22:47)
[2022-01-21] MEDS: ARIPiprazole 5 MG TAB PO (22:47)
[2022-01-21] MEDS: VANCOMYCIN/WATER (PEG) 1 GM/200 ML BAG IV (22:48)
[2022-01-21] MEDS: Normal Saline 500 ML 30 ML IV (22:48)
[2022-01-22] VITALS (13 sets, daily range): BP systolic 100–125; BP diastolic 58–70; PULSE 79–94; RESP 2–22; TEMP 36.6–37.1; O2SAT 91–96
[2022-01-22] MEDS: CEFEPIME 2 GM in Normal Saline 100 ML IVPB ×2 (00:31→12:49)
[2022-01-22] MEDS: Acetaminophen 325 MG TAB PO (03:31)
[2022-01-22] MEDS: Levothyroxine 175 MCG TAB PO (06:43)
[2022-01-22] MEDS: Albuterol/Ipratropium 3 ML UPD VIAL UPD ×4 (07:29→20:54)
[2022-01-22 07:58] LABS: Abs Immature Grans 0.07 10^3/uL (0.0-0.06); Absolute Basophil Count 0.02 10^3/uL (0.0-0.2); Absolute Eosinophil Count 0.01 10^3/uL (0.0-0.7); Absolute Lymphocyte Count 0.97 10^3/uL (1.2-3.4); Absolute Monocyte Count 0.52 10^3/uL (0.1-0.8); Basophils % 0.2; Eosinophils % 0.1; Immature Grans % 0.8; MCH 28.7 pg (27.0-33.0); MCHC 31.5 % (32.0-36.0); MCV 91.3 fL (80-95); MPV 11.9 fL (8.0-11.0); Monocytes % 5.9; Nucleated RBC 0 %; Platelet Count 126 10^3/uL (130-400); RBC 3.34 10^6/uL (3.93-5.22); RDW 15.9 % (11.7-14.6); RDW-SD 53.9 fL; WBC 8.79 10^3/uL (4.4-10.8)
[2022-01-22 08:04] LABS: HCT 30.5 % (36.0-46.0); HGB 9.6 g/dL (11.2-15.7)
[2022-01-22 08:27] LABS: Anion Gap 10.6 mmol/L (3-11); BUN 47 mg/dL (7-18); CO2 24.4 mmol/L (21.0-32.0); CREATININE 1.4 mg/dL (0.55-1.02); Chloride 106 mmol/L (98-107); Estimated GFR 36.76 (mL/min/1.73m2); Glucose 118 mg/dL (74-106); Potassium 3.8 mmol/L (3.5-5.1); Sodium 141 mmol/L (136-145)
[2022-01-22 08:28] LABS: Magnesium 2.3 mg/dL (1.8-2.4)
[2022-01-22] MEDS: predniSONE 20 MG TAB 60 MG PO (08:43)
[2022-01-22] MEDS: Ascorbic Acid 500 MG TAB 1000 MG PO ×2 (08:43→20:54)
[2022-01-22] MEDS: Apixaban 5 MG TAB PO ×2 (08:44→20:54)
[2022-01-22] MEDS: Acetaminophen 325 MG TAB 650 MG PO ×2 (08:44→20:54)
[2022-01-22] MEDS: Pantoprazole 40 MG TABCR PO (08:44)
[2022-01-22] MEDS: Nystatin POWDER 15 GM JAR TP ×2 (08:45→21:11)
[2022-01-22 08:49] LABS: Hemoglobin A1C 6.5 % (<5.7)
[2022-01-22] MEDS: Normal Saline Flush 10 ML SYR IVP ×2 (08:54→12:07)
[2022-01-22] MEDS: Budesonide/Formoterol 80/4.5 6.9 GM 60 PUFF INH IH ×2 (09:46→21:09)
--- NOTE | 2022-01-22 09:46 | CMPROGNOTE_ITS ---
- If Service Date Differs Date of service: 01/22/22 Time of Service: 09:46 Care Management Progress Note S/O: Bohemia continues to be closely monitored and treated, [facility] were unable to offer Bohemia a bed so additional choices were elicited by this technical document writer; referral faxed to the [facility] on Bohemia's behalf. She also met with Almita of Palliative Care today to discuss goals of care. SNF coordination continues, CM continues to follow. A: 76 year old female admitted to [facility] 01/21/22 for Pneumonia P: Bohemia will go to a SNF for short term rehab vs return home with HH services when medically cleared by provider. She will follow up with her PCP, community providers, and plan of care as prescribed. Fab[facility] w/c van when ready. CM will continue to follow.
[2022-01-22] MEDS: Lidocaine 5% Patch 1 PATCH TP (12:05)
[2022-01-22] MEDS: guaiFENesin 600 MG TABCR 1200 MG PO ×2 (12:05→20:54)
[2022-01-22] MEDS: Lactated Ringers 1,000 ML 50 ML IV (12:08)
--- NOTE | 2022-01-22 12:08 | PGE_ITS ---
Date of Service Date of service: 01/22/22 Time of Service: 10:30 Assessment and Plan Assessment and plan (1) Community acquired pneumonia of right lung: Start date: 01/22/22 Start time: 10:30 Status: Acute Assessment and plan: broad spectrum antibiotics to cover for Strep, Staph, gram neg. including Pseudomonas, Klebsiella and Proteus. will continue with vancomycin and cefepime as she was recently on levaquin. Will encourage her to use acapella and IS. Will give corticosteroids for her COPD and put her on scheduled nebulized bronchodilators and attempt to get sputum for gram stain/culture, fungal culture and mycoplasma PCR. Will get urine antigens for Strep and Legionella. No blood cultures were jose at this time, will draw in the am has been vaccinated against SARS-COV2, nasal PCR negative (2) COPD (chronic obstructive pulmonary disease): Start date: 01/22/22 Start time: 10:30 Status: Chronic Assessment and plan: as above Qualifiers: COPD type: emphysema Emphysema type: centrilobular Qualified Code(s): J43.2 - Centrilobular emphysema (3) Fall: Start date: 01/22/22 Start time: 10:30 Status: Acute Assessment and plan: will ask P.T. to evaluate her gait stability and strength At this time she states she is very tired (4) CKD (chronic kidney disease) stage 3, GFR 30-59 ml/min: Start date: 01/22/22 Start time: 10:30 Assessment and plan: IVF were discontinued, however, her tongue appears very dry, will give gentle IVF with LR at 50 an hour (5) Hypothyroidism: Start date: 01/22/22 Start time: 10:30 Assessment and plan: TSH is elevated at 36.1 higher than her previous value on December 05, 2021 and 17.25. Continue increased levothyroxine to 175 mcg daily. consider medication non compliance Qualifiers: Hypothyroidism type: acquired Qualified Code(s): E03.9 - Hypothyroidism, unspecified (6) Non-insulin dependent diabetes mellitus: Start date: 01/22/22 Start time: 10:30 Assessment and plan: patient has not been on any oral meds or insulin; last A1c was 6.4% on 08/18 01/08. A1C pending for am monitor glucose bid but if elevated then will increase frequency to AC/HS and cover w/ novolog anticipate hyperglycemia with steroids. (7) Smoker: Start date: 01/22/22 Start time: 10:30 Assessment and plan: apply nicotine patch (8) Chronic anticoagulation: Start date: 01/22/22 Start time: 10:30 Assessment and plan: continue Eliquis for her hx of PE (9) Discharge planning issues: Start date: 01/22/22 Start time: 10:30 Status: Acute Assessment and plan: case management will be following anticipate discharge to longterm facility. discussed with DR Schaffer Subjective Subjective Patient reports: other Interval history since last seen: Sitting up in bed states that she is tired, she did not get any sleep last night. Requiring oxygen. LS with wheezing, per nursing not really able tolerate doing acapella or IS. therefore some chest percussion was done, as she has a wet cough with mucus that she states she can not bring up. Exam Const General: cooperative, comfortable, no acute distress, frail appearing and ill appearing chronically Nutritional Appearance: obese Orientation: alert, awake and oriented x3 Other: patient is poor historian [facility] Head: normal to inspection, normocephalic and atraumatic Mouth: oral mucosae normal Chest Chest: normal inspection of the chest Resp Effort & Inspection: normal respiratory effort Auscultation: diminished lung sounds (anteriorly) and wheezes (posterior) expiratory wheezes Cardio Rate: regular rate Rhythm: regular rhythm GI Inspection: obesity Skin General skin exam: no rashes or lesions noted Extrem General: normal to inspection and full ROM Objective Last Vital Signs Temp 37.1 C 01/22/22 07:43 Pulse 94 H 01/22/22 10:30 Resp 18 01/22/22 11:30 BP 100/58 L 01/22/22 03:48 Pulse Ox 93 01/22/22 11:30 Laboratory Results - last 24 hr 01/21/22 01/21/22 01/22/22 07:35 08:30 07:25 WBC RBC Hgb Hct MCV MCH MCHC RDW Plt Count MPV Immature Gran % Neutrophils % Lymphocytes % Monocytes % Eosinophils % Basophils % Nucleated RBC % Absolute Neutrophils Absolute Lymphocytes Absolute Monocytes Absolute Eosinophils Absolute Basophils Sodium Potassium Chloride Carbon Dioxide Anion Gap BUN Creatinine Estimated GFR/1.73 m2 Glucose Hemoglobin A1c 6.5 H Calcium Magnesium Urine Legionella Ag Negative Add-On Test Request DONE 01/22/22 01/22/22 01/22/22 07:25 07:25 07:29 WBC 8.79 RBC 3.34 L Hgb 9.6 L D Hct 30.5 L D MCV 91.3 MCH 28.7 MCHC 31.5 L RDW 15.9 H Plt Count 126 L MPV 11.9 H Immature Gran % 0.8 Neutrophils % 82.0 Lymphocytes % 11.0 Monocytes % 5.9 Eosinophils % 0.1 Basophils % 0.2 Nucleated RBC % 0 Absolute Neutrophils 7.20 H Absolute Lymphocytes 0.97 L Absolute Monocytes 0.52 Absolute Eosinophils 0.01 Absolute Basophils 0.02 Sodium 141 Potassium 3.8 Chloride 106 Carbon Dioxide 24.4 Anion Gap 10.6 BUN 47 H Creatinine 1.4 H Estimated GFR/1.73 m2 36.76 Glucose 118 H Hemoglobin A1c Calcium 9.0 Magnesium 2.3 Urine Legionella Ag Add-On Test Request
--- NOTE | 2022-01-22 12:38 | PT.INTREAT ---
Date of service: 01/22/22 Time of Service: 10:27 PT Notes Visit Reasons: Pneumonia Inpatient Physical Therapy Treatment Note [facility] Date: 01/22/2022 PRECAUTIONS: Fall, Activity as tolerated SUBJECTIVE: Fabiola states that she is not ready for PT, although is agreeable to participating. She states that she requires frequent rests with ambulation due to SOB. She reports this is her baseline. OBJECTIVE: PAIN: Patient states I hurt everywhere BED MOBILITY/TRANSFERS Rolling L/R: [] Supine-sit: [] Sit-supine: I with HOB flat Sit-stand: S Stand-sit: S GAIT Assistive Device: FWW Weight bearing: Full Assist: SBA Distance: 6' + 20' in a.m.; 40' in p.m. Deviation: Slow and steady pace, wheelchair follow, increased fatigue, seated rest x1 due to SOB, 3L O2 via NC in a.m.; slow and steady pace, increased fatigue and SOB, 3L O2 via NC in p.m. THEREX: Held due to fatigue in a.m.; held for nursing to place IV for abx administration. ASSESSMENT: Patient tolerated session with complaint of increased fatigue and SOB with activity. She was able to tolerate a slight progression in gait distance although requires seated rest due to increasing SOB. PLAN: Continue with general conditioning for improved activity tolerance, as indicated. TREATMENT CODE/TIME: Session 1: 20 minutes; 43002 (10:27) Session 2: 12 minutes; [id number] (15:18)
--- NOTE | 2022-01-22 14:16 | W.PALLCONSUL ---
Date of service: 01/22/22 Time of Service: 13:00 History of Present Illness Narrative: Ms. Hicks is a 76 y/o F currently inpatient at [facility] 2/2 right sided PNA; PMHx sig for smoker, COPD, type 2 diabetes mellitus, pulmonary embolism (chronically anticoagulated with Eliquis), essential hypertension, hypothyroidism, cholelithiasis, diverticulosis, chronic back pain Hospital course: presented to ED 01/21/22 d/t fall and lightheadedness at home, CXR right middle and lower lobe infiltrate w/elevated white count 11.2, and dehydration, admitted inpatient for further management of PNA; started on Levaquin and Vancomycin, Levaquin switched to cefepime; consult placed to review GOC and multiple admissions Pt reports feeling a little better since admission, is happy to be having additional assistance and agreeable to transitioning to SNF upon discharge prior to returning home; pt aware that [facility] not available, [place] pending; Pt lives alone in [facility] w/no community support reported, uses [facility] for transportation; reports iADLs w/difficulty getting meals ready, would be interested in MOW upon arrival back home; otherwise, feels living safely independent at home; denies any frequent visitors or close social supports, HCA and sister Ana, sons Tod and Agapito all aware of current hospitalization and speaks to them w/some frequency via telephone; Pt reports pain ?a little? and ?everywhere?, worse w/transitions, resting always helps, when in pain at home will rest; pt unable to qualify what does in a typical day; reports some difficulty eating salad, but not bad, denies painful swallowing; some difficulty clearing secretions, but this is improving w/abx Pt reports occasional, rare, new in previous year, hallucinations of seeing things others don?t see; unable to quantify or qualify, denies feeling overly concerned or bothered by these at this time; Discussed at least 10 admissions and visits to ED since May, pt states ?wow?; would like to continue presenting to hospital when in need; reports vertigo dizziness intermittent now, typically will sit down and it passes on own, no c/o today; reports COPD exacerbations do happen, not aware of currently f/b pulmonology, willing to see houtpatient Goals: return home once safe; pt unable to list alternative goals at time of visit d/t ready for nap; HCA: Ana Nichelle (sister); Tod Mcconnell (son); Agapito Mcconnell (son); wishes to defer COLST at this time PCP: Kathleen Azevedo ([facility]) Assessment and Plan Assessment and plan (1) Community acquired pneumonia of right lung: Status: Acute Assessment and plan: continue vancomycin and cefepime; (2) COPD (chronic obstructive pulmonary disease): Status: Chronic Assessment and plan: consider outpatient f/u for improved control, reduced hospital admissions Qualifiers: COPD type: emphysema Emphysema type: centrilobular Qualified Code(s): J43.2 - Centrilobular emphysema (3) Hallucinations: Status: Chronic Assessment and plan: not present today; not distressing to pt (4) Vertigo: Status: Acute Assessment and plan: not present today (5) Discharge planning issues: Status: Acute Assessment and plan: CM working for placement at [facility], will need [facility] and MOW upon transition home, referral to be placed (6) Palliative care status: Status: Acute Assessment and plan: continue to follow; f/u to be scheduled upon discharge, will go to SNF for HV and to home PRN; to review COLST and code status on f/u; encouraged pt to consider wishes, review w/sister Ana Review of Systems Constitutional Constitutional: Reports as per [facility] PFSH All Active Problems (Updated 01/22/22 @ 15:03 by Almita Calles NP) Palliative care status (Acute) Discharge planning issues (Acute) Community acquired pneumonia of right lung (Acute) Hypoxemia (Acute) Back pain (Acute) Cellulitis (Acute) Respiratory failure with hypoxia (Acute) COPD (chronic obstructive pulmonary disease) (Chronic) Low back pain (Acute) Noncompliance with medication regimen (Acute) Pain, joint, knee, right (Acute) Fall (Acute) Blunt head trauma (Acute) Blunt injury of back (Acute) Fall (Acute) Contusion (Acute) Auditory hallucination (Acute) Fall (Acute) Hallucinations (Chronic) Discharge planning issues (Acute) DVT prophylaxis (Acute) Community acquired pneumonia (Acute) Vertigo (Acute) Diverticulosis (Chronic) Cholelithiasis (Chronic) Nausea vomiting and diarrhea (Acute) Unsteady gait when walking (Acute) Constipation (Chronic) Memory impairment (Chronic) 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) Osteoarthritis of right knee (Chronic) Medical History Aneurysm of infrarenal abdominal aorta Chronic anticoagulation CKD (chronic kidney disease) stage 3, GFR 30-59 ml/min COPD (chronic obstructive pulmonary disease) Failure to thrive in adult Fracture of both ankles Hearing loss History of blood transfusion Hx of hyperlipidemia Hypertension Hypothyroidism Non-insulin dependent diabetes mellitus Obesity 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 Pulmonary embolism Seborrheic keratosis Smoker Surgical History History of bilateral tubal ligation History of hernia repair Family History Father Diabetes Social History Smoking/Tobacco Use Status: Current every day Tobacco Type: cigarettes Years smoked: 58 Tobacco: How many years used: 15 Counseling given: provider counseling and support medications Smoking risk assessment performed?: Yes Alcohol Intake: never Drug use: Never Substance use type: does not use Household members: none Housing: apartment Number of Children: 3 number of grandchildren: 1 What is your relationship status?: Panel score (0-1 are the most socially isolated patients): 0 What type of physical activity do you participate in: walking Seatbelt use: always Do you feel safe at home: Yes Do you feel safe in your relationship?: Yes Exam Narrative Exam Narrative: pt sitting comfortably in recliner upon entering room; lunch tray empty; agreeable to visit, gets tired at end of visit and requests premature end for nap Const General: cooperative, comfortable and no acute distress Nutritional Appearance: obese Orientation: alert, awake and oriented x3 Other: patient is poor historian HENND Head: normal to inspection, normocephalic and atraumatic Ears: hearing grossly normal bilaterally Mouth: oral mucosae normal Chest Chest: normal inspection of the chest Resp Effort & Inspection: normal respiratory effort, able to speak in complete sentences and cough Quality of cough: wet Cardio Pulses: radial pulses present on the left 2+ Skin General skin exam: no rashes or lesions noted Extrem General: normal to inspection and full ROM Psych Mental Status: mental status grossly normal Speech and Movement: speech clear Affect: normal affect Attitude: cooperative Insight: limited Judgment: fair Results Last Vital Signs Temp 98.8 F 01/22/22 07:43 Pulse 94 H 01/22/22 10:30 Resp 18 01/22/22 11:30 BP 100/58 L 01/22/22 03:48 Pulse Ox 93 01/22/22 11:30 Labs Result diagrams: 01/22/22 07:29 01/22/22 07:25 Labs: Laboratory Results - last 24 hr 01/21/22 01/21/22 01/22/22 07:35 08:30 07:25 WBC RBC Hgb Hct MCV MCH MCHC RDW Plt Count MPV Immature Gran % Neutrophils % Lymphocytes % Monocytes % Eosinophils % Basophils % Nucleated RBC % Absolute Neutrophils Absolute Lymphocytes Absolute Monocytes Absolute Eosinophils Absolute Basophils Sodium Potassium Chloride Carbon Dioxide Anion Gap BUN Creatinine Estimated GFR/1.73 m2 Glucose Hemoglobin A1c 6.5 H Calcium Magnesium Urine Legionella Ag Negative Add-On Test Request DONE 01/22/22 01/22/22 01/22/22 07:25 07:25 07:29 WBC 8.79 RBC 3.34 L Hgb 9.6 L D Hct 30.5 L D MCV 91.3 MCH 28.7 MCHC 31.5 L RDW 15.9 H Plt Count 126 L MPV 11.9 H Immature Gran % 0.8 Neutrophils % 82.0 Lymphocytes % 11.0 Monocytes % 5.9 Eosinophils % 0.1 Basophils % 0.2 Nucleated RBC % 0 Absolute Neutrophils 7.20 H Absolute Lymphocytes 0.97 L Absolute Monocytes 0.52 Absolute Eosinophils 0.01 Absolute Basophils 0.02 Sodium 141 Potassium 3.8 Chloride 106 Carbon Dioxide 24.4 Anion Gap 10.6 BUN 47 H Creatinine 1.4 H Estimated GFR/1.73 m2 36.76 Glucose 118 H Hemoglobin A1c Calcium 9.0 Magnesium 2.3 Urine Legionella Ag Add-On Test Request
[2022-01-22] MEDS: Nystatin 500000 UNITS/5 ML SUSP 5ML CUP PO ×2 (15:06→20:54)
[2022-01-22] MEDS: VANCOMYCIN/WATER (PEG) 1 GM/200 ML BAG IV (15:46)
[2022-01-22] MEDS: Atorvastatin 40 MG TAB 80 MG PO (20:54)
[2022-01-22] MEDS: QUEtiapine 25 MG TAB 50 MG PO (21:59)
[2022-01-22] MEDS: Melatonin 3 MG TAB PO (21:59)
[2022-01-22] MEDS: ARIPiprazole 5 MG TAB PO (21:59)
[2022-01-22] MEDS: Patch Removal 1 EACH TP (22:02)
[2022-01-22 22:33] LABS: Adenovirus DNA Result Negative (Negative); Metapneumovirus RNA Result Negative (Negative); Parainfluenza Type1 RNA Result Negative (Negative); Parainfluenza Type2 RNA Result Negative (Negative); Parainfluenza Type3 RNA Result Negative (Negative); Parainfluenza Type4 RNA Result Negative (Negative); Rhinovirus RNA Result Negative (Negative)
[2022-01-23] VITALS (10 sets, daily range): BP systolic 124–165; BP diastolic 72–83; PULSE 78–90; RESP 2–22; TEMP 35.5–36.7; O2SAT 93–97
[2022-01-23] MEDS: CEFEPIME 2 GM in Normal Saline 100 ML IVPB ×2 (00:26→11:35)
[2022-01-23] MEDS: Levothyroxine 175 MCG TAB PO (05:48)
[2022-01-23 07:06] LABS: Abs Immature Grans 0.12 10^3/uL (0.0-0.06); Absolute Basophil Count 0.02 10^3/uL (0.0-0.2); Absolute Lymphocyte Count 1.09 10^3/uL (1.2-3.4); Absolute Monocyte Count 0.51 10^3/uL (0.1-0.8); Absolute Neutrophil Count 6.09 10^3/uL (1.2-6.7); Basophils % 0.3; HCT 31.2 % (36.0-46.0); HGB 9.9 g/dL (11.2-15.7); Immature Grans % 1.5; Lymphocytes % 13.9; MCH 28.4 pg (27.0-33.0); MCHC 31.7 % (32.0-36.0); MCV 89.7 fL (80-95); MPV 11.2 fL (8.0-11.0); Monocytes % 6.5; Neutrophils % 77.8; Nucleated RBC 0 %; Platelet Count 136 10^3/uL (130-400); RBC 3.48 10^6/uL (3.93-5.22); RDW 16.3 % (11.7-14.6); RDW-SD 53.3 fL; WBC 7.83 10^3/uL (4.4-10.8)
[2022-01-23 07:17] LABS: Anion Gap 8.3 mmol/L (3-11); BUN 36 mg/dL (7-18); CO2 24.7 mmol/L (21.0-32.0); CREATININE 1.2 mg/dL (0.55-1.02); Chloride 107 mmol/L (98-107); Estimated GFR 43.91 (mL/min/1.73m2); Glucose 145 mg/dL (74-106); Sodium 140 mmol/L (136-145)
[2022-01-23] MEDS: Nystatin 500000 UNITS/5 ML SUSP 5ML CUP PO ×3 (07:36→20:58)
[2022-01-23] MEDS: Albuterol/Ipratropium 3 ML UPD VIAL UPD ×4 (07:36→20:59)
[2022-01-23] MEDS: guaiFENesin 600 MG TABCR 1200 MG PO ×2 (07:37→20:57)
[2022-01-23] MEDS: Acetaminophen 325 MG TAB 650 MG PO ×2 (07:37→20:58)
[2022-01-23] MEDS: Ascorbic Acid 500 MG TAB 1000 MG PO ×2 (07:37→20:58)
[2022-01-23] MEDS: Apixaban 5 MG TAB PO ×2 (07:37→20:58)
[2022-01-23] MEDS: predniSONE 20 MG TAB 60 MG PO (07:37)
[2022-01-23] MEDS: Pantoprazole 40 MG TABCR PO (07:38)
[2022-01-23] MEDS: Budesonide/Formoterol 80/4.5 6.9 GM 60 PUFF INH IH ×2 (07:50→20:58)
[2022-01-23] MEDS: VANCOMYCIN/WATER (PEG) 1 GM/200 ML BAG IV (09:05)
[2022-01-23] MEDS: Nystatin POWDER 15 GM JAR TP ×2 (09:05→20:59)
[2022-01-23] MEDS: Normal Saline Flush 10 ML SYR IVP ×4 (09:06→21:03)
[2022-01-23] MEDS: Normal Saline 500 ML 30 ML IV (09:06)
--- NOTE | 2022-01-23 09:37 | PT.INTREAT ---
Date of service: 01/23/22 Time of Service: 09:10 PT Notes Visit Reasons: Pneumonia Inpatient Physical Therapy Treatment Note [facility] Date: 01/23/2022 PRECAUTIONS: Fall, Activity as tolerated SUBJECTIVE: Fabiola reports that she is feeling a little bit better today, but continues to have some belly pain. She is pleasant and agreeable to participating in PT. OBJECTIVE: PAIN: Patient reports some belly pain. BED MOBILITY/TRANSFERS Sit-stand: I Stand-sit: I GAIT Assistive Device: FWW Weight bearing: Full Assist: S Distance: 150' in a.m.; 175' in p.m. Deviation: Slow and steady pace, wheelchair follow, no SOB, 2-3L O2 via NC ASSESSMENT: Patient tolerated session without complaint of fatigue or SOB with activity. She was able to tolerate a progression in gait distance although requires seated rest due to increasing SOB. PLAN: Continue with general conditioning for improved activity tolerance, as indicated. TREATMENT CODE/TIME: Session 1: 21 minutes; 43153 (09:10) Session 2: 15 minutes; [id number] (16:34)
[2022-01-23] MEDS: Lidocaine 5% Patch 1 PATCH TP (10:35)
[2022-01-23 14:52] LABS: Fungitell Qualitative Negative (Negative); Fungitell Quantitative Value <31 pg/mL (<60 pg/mL)
--- NOTE | 2022-01-23 15:41 | CHAPLAIN ---
Fabiola was up in the chair when I visited. I explained my role and offered support. Fabiola provide short answers to my questions and told me that she hasn't told any relatives that she is here and that she'll do that in her own good time because she is a very private person. The Palliative Care note from Almita Marli stated that family members, her sister and son, are aware that she is here. Fabiola did not seem interested in a longer conversation today. I will try another time.
--- NOTE | 2022-01-23 15:54 | CMPROGNOTE_ITS ---
- If Service Date Differs Date of service: 01/23/22 Time of Service: 15:54 Care Management Progress Note S/O: [place] continues to be closely monitored and treated, CM continues to await determination from the [facility] on Fabiola's referral. CM attempted contact with the [facility]-waited on hold for 20 minutes, was told Angela would return the call; no call back. SNF coordination continues, CM continues to follow. A: 76 year old female admitted to [facility] 01/21/22 for Pneumonia P: Fabiola will go to a SNF for short term rehab vs return home with services when medically cleared by provider at this time, she is only agreeable to [facility] and the [facility]; [facility] unable to offer a bed. She will follow up with her PCP, community providers, and plan of care as prescribed. Fabiola will be transported via [facility] vs facility w/c van when ready. CM will continue to follow.
--- NOTE | 2022-01-23 16:04 | PGE_ITS ---
Date of Service Date of service: 01/23/22 Time of Service: 16:05 Assessment and Plan Assessment and plan (1) Community acquired pneumonia of right lung: Status: Acute Assessment and plan: broad spectrum antibiotics to cover for Strep, Staph, gram neg. including Pseudomonas, Klebsiella and Proteus. will continue with vancomycin and cefepime as she was recently on levaquin. Will encourage her to use acapella and IS. Will give corticosteroids for her COPD and put her on scheduled nebulized bronchodilators and attempt to get sputum for gram stain/culture, fungal culture and mycoplasma PCR. Will get urine antigens for Strep and Legionella. has been vaccinated against SARS-COV2, nasal PCR negative (2) COPD (chronic obstructive pulmonary disease): Status: Chronic Assessment and plan: as above Qualifiers: COPD type: emphysema Emphysema type: centrilobular Qualified Code(s): J43.2 - Centrilobular emphysema (3) Fall: Status: Acute Assessment and plan: will ask P.T. to evaluate her gait stability and strength (4) CKD (chronic kidney disease) stage 3, GFR 30-59 ml/min: Assessment and plan: gently fluid hydration and repeat her BMP tomorrow (5) Hypothyroidism: Assessment and plan: TSH is elevated at 36.1 higher than her previous value on December 05, 2021 and 17.25. Continue increased levothyroxine to 175 mcg daily. consider medication non compliance Qualifiers: Hypothyroidism type: acquired Qualified Code(s): E03.9 - Hypothyroidism, unspecified (6) Non-insulin dependent diabetes mellitus: Assessment and plan: patient has not been on any oral meds or insulin; last A1c was 6.4% on 08/29/21. A1C pending for am monitor glucose bid but if elevated then will increase frequency to AC/HS and cover w/ novolog anticipate hyperglycemia with steroids. (7) Smoker: Assessment and plan: apply nicotine patch (8) Chronic anticoagulation: Assessment and plan: continue Eliquis for her hx of PE (9) Discharge planning issues: Status: Acute Assessment and plan: case management will be following I anticipate a discharge to nursing home facility. discussed with DR Schaffer Subjective Subjective Patient reports: no new complaints, feels better, tolerating liquids well, tolerating a regular diet, shortness of breath and afebrile Exam Const General: cooperative, comfortable, no acute distress, frail appearing and ill appearing chronically Nutritional Appearance: obese Orientation: alert, awake and oriented x3 HENMT Head: normal to inspection, normocephalic and atraumatic Mouth: oral mucosae normal Chest Chest: normal inspection of the chest Resp Effort & Inspection: normal respiratory effort Auscultation: diminished lung sounds (throughout, no coarse breath sound or wheezing noted) Cardio Rate: regular rate Rhythm: regular rhythm GI Inspection: obesity Skin General skin exam: no rashes or lesions noted Extrem General: normal to inspection and full ROM Objective Last Vital Signs Temp 36.4 C L 01/23/22 15:13 Pulse 80 01/23/22 15:46 Resp 16 01/23/22 15:46 BP 162/78 H 01/23/22 15:13 Pulse Ox 93 01/23/22 15:46 Laboratory Results - last 24 hr 01/21/22 01/21/22 01/23/22 08:30 12:25 06:45 WBC RBC Hgb Hct MCV MCH MCHC RDW Plt Count MPV Immature Gran % Neutrophils % Lymphocytes % Monocytes % Eosinophils % Basophils % Nucleated RBC % Absolute Neutrophils Absolute Lymphocytes Absolute Monocytes Absolute Eosinophils Absolute Basophils Sodium 140 Potassium 4.0 Chloride 107 Carbon Dioxide 24.7 Anion Gap 8.3 BUN 36 H D Creatinine 1.2 H Estimated GFR/1.73 m2 43.91 Glucose 145 H Calcium 9.0 Adenovirus DNA Negative Human Metapneumovir RNA Negative Parainfluenza 1 (PCR) Negative Parainfluenza 2 (PCR) Negative Parainfluenza 3 (PCR) Negative Parainfluenza 4 (PCR) Negative Resp Viral Spec Desc Not Applicable Rhinovirus (PCR) Negative B-(1,3)-D-Glucan Quant <31 B-(1,3)-D-Glucan Qual Negative 01/23/22 06:45 WBC 7.83 RBC 3.48 L Hgb 9.9 L Hct 31.2 L MCV 89.7 MCH 28.4 MCHC 31.7 L RDW 16.3 H Plt Count 136 MPV 11.2 H Immature Gran % 1.5 Neutrophils % 77.8 Lymphocytes % 13.9 Monocytes % 6.5 Eosinophils % 0.0 Basophils % 0.3 Nucleated RBC % 0 Absolute Neutrophils 6.09 Absolute Lymphocytes 1.09 L Absolute Monocytes 0.51 Absolute Eosinophils 0.00 Absolute Basophils 0.02 Sodium Potassium Chloride Carbon Dioxide Anion Gap BUN Creatinine Estimated GFR/1.73 m2 Glucose Calcium Adenovirus DNA Human Metapneumovir RNA Parainfluenza 1 (PCR) Parainfluenza 2 (PCR) Parainfluenza 3 (PCR) Parainfluenza 4 (PCR) Resp Viral Spec Desc Rhinovirus (PCR) B-(1,3)-D-Glucan Quant B-(1,3)-D-Glucan Qual
[2022-01-23 17:19] LABS: Streptococcus Pneumoniae Ag, U Positive (Negative)
[2022-01-23] MEDS: Atorvastatin 40 MG TAB 80 MG PO (20:58)
[2022-01-23] MEDS: Melatonin 3 MG TAB PO (20:59)
[2022-01-23] MEDS: ARIPiprazole 5 MG TAB PO (20:59)
[2022-01-23] MEDS: Patch Removal 1 EACH TP (21:05)
[2022-01-23] MEDS: QUEtiapine 25 MG TAB 50 MG PO (21:08)
[2022-01-24] VITALS (10 sets, daily range): BP systolic 128–147; BP diastolic 70–79; PULSE 76–93; RESP 1–20; TEMP 36.7–37.2; O2SAT 93–98
[2022-01-24] MEDS: CEFEPIME 2 GM in Normal Saline 100 ML IVPB ×2 (00:21→12:46)
[2022-01-24] MEDS: Normal Saline Flush 10 ML SYR IVP ×4 (00:21→20:25)
[2022-01-24] MEDS: VANCOMYCIN/WATER (PEG) 1 GM/200 ML BAG IV ×2 (01:29→17:05)
[2022-01-24] MEDS: Levothyroxine 175 MCG TAB PO (05:37)
[2022-01-24 06:50] LABS: Abs Immature Grans 0.33 10^3/uL (0.0-0.06); Absolute Basophil Count 0.02 10^3/uL (0.0-0.2); Absolute Eosinophil Count 0.02 10^3/uL (0.0-0.7); Absolute Lymphocyte Count 1.65 10^3/uL (1.2-3.4); Absolute Monocyte Count 0.74 10^3/uL (0.1-0.8); Absolute Neutrophil Count 5.46 10^3/uL (1.2-6.7); Basophils % 0.2; Eosinophils % 0.2; HCT 32.8 % (36.0-46.0); HGB 10.3 g/dL (11.2-15.7); Lymphocytes % 20.1; MCH 28.4 pg (27.0-33.0); MCHC 31.4 % (32.0-36.0); MCV 90.4 fL (80-95); MPV 10.7 fL (8.0-11.0); Neutrophils % 66.5; Nucleated RBC 0 %; Platelet Count 147 10^3/uL (130-400); RBC 3.63 10^6/uL (3.93-5.22); RDW 16.1 % (11.7-14.6); RDW-SD 54.3 fL; WBC 8.22 10^3/uL (4.4-10.8)
[2022-01-24 07:12] LABS: Anion Gap 8.2 mmol/L (3-11); BUN 32 mg/dL (7-18); CO2 25.8 mmol/L (21.0-32.0); CREATININE 1.3 mg/dL (0.55-1.02); Chloride 106 mmol/L (98-107); Estimated GFR 40.04 (mL/min/1.73m2); Glucose 127 mg/dL (74-106); Potassium 4.1 mmol/L (3.5-5.1); Sodium 140 mmol/L (136-145)
[2022-01-24 07:44] LABS: Lab Add On Test DONE
[2022-01-24] MEDS: Albuterol/Ipratropium 3 ML UPD VIAL UPD ×4 (07:51→20:12)
[2022-01-24] MEDS: Budesonide/Formoterol 80/4.5 6.9 GM 60 PUFF INH IH ×2 (07:51→20:25)
[2022-01-24 08:28] LABS: Procalcitonin 1.3 ng/mL
[2022-01-24] MEDS: Ascorbic Acid 500 MG TAB 1000 MG PO ×2 (09:05→20:26)
[2022-01-24] MEDS: Acetaminophen 325 MG TAB 650 MG PO ×2 (09:05→20:26)
[2022-01-24] MEDS: Apixaban 5 MG TAB PO ×2 (09:05→20:26)
[2022-01-24] MEDS: guaiFENesin 600 MG TABCR 1200 MG PO ×2 (09:06→20:27)
[2022-01-24] MEDS: predniSONE 20 MG TAB 60 MG PO (09:07)
[2022-01-24] MEDS: Pantoprazole 40 MG TABCR PO (09:07)
[2022-01-24] MEDS: Nystatin 500000 UNITS/5 ML SUSP 5ML CUP PO ×3 (09:07→20:25)
--- NOTE | 2022-01-24 10:07 | PT.INNT ---
Date of service: 01/24/22 Time of Service: 10:07 PT Notes Visit Reasons: Pneumonia 01/24/2022 Patient refused morning PT session x2. Will attempt to resume PT services this afternoon.
[2022-01-24] MEDS: Lidocaine 5% Patch 1 PATCH TP (12:34)
--- NOTE | 2022-01-24 12:34 | PDOC.CMPRO ---
- If Service Date Differs Date of service: 01/24/22 Time of Service: 12:34 Care Management Progress Note S/O: Fabiola was sitting up in her chair when CM met with her. She stated that she is not having a good day, and that she has a terrible headache. CM asked if she had informed her RN of this, which she had not. CM discussed this with her RN, who will check on her promptly. CM reviewed Fabiola's discharge plan with her, as she has pending referrals for SNF. She was declined by [facility], [facility] is still considering. CM will follow up today. CM will continue to follow. A: 76 year old female admitted to [facility] 01/21/22 for Pneumonia P: Fabiola will go to a SNF for short term rehab vs return home with services when medically cleared by provider at this time, she is only agreeable to [facility] and [facility] unable to offer a bed. She will follow up with her PCP, community providers, and plan of care as prescribed. Fabiola will be transported via [facility] facility w/c van when ready. CM will continue to follow.
[2022-01-24] MEDS: Nystatin POWDER 15 GM JAR TP ×2 (12:35→20:28)
--- NOTE | 2022-01-24 14:20 | PTTR_ITS ---
Date of service: 01/24/22 Time of Service: 14:03 PT Notes Visit Reasons: Pneumonia Inpatient Physical Therapy Treatment Note [facility] Date: 01/24/2022 PRECAUTIONS: Activity as tolerated SUBJECTIVE: Fabiola is pleasant and agreeable to participating in PT. She states that she would like to try to do a little more each day. OBJECTIVE: PAIN: No c/o pain BED MOBILITY/TRANSFERS Sit-stand: I Stand-sit: I GAIT Assistive Device: FWW Weight bearing: Full Assist: S Distance: 175' Deviation: Slow/steady pace, no SOB, 3L O2 THEREX: Patient was instructed in several LE strengthening exercises, completed in a seated position, as per flow sheet. ASSESSMENT: Patient tolerated session well, without complaint of pain or fa tigue. PLAN: Continue with gait training and general conditioning for improved activity tolerance. TREATMENT CODE/TIME: 15 minutes; [id number] (14:03)
--- NOTE | 2022-01-24 16:44 | W.PM.PROGNOT ---
Date of Service Date of service: 01/24/22 Time of Service: 16:45 Assessment and Plan Assessment and plan (1) Community acquired pneumonia of right lung: Status: Acute Assessment and plan: broad spectrum antibiotics to cover for Strep, Staph, gram neg. including Pseudomonas, Klebsiella and Proteus. will continue with vancomycin and cefepime day 4/5 as she was recently on levaquin. continue acapella and IS. corticosteroids for her COPD and put her on scheduled nebulized bronchodilators has been vaccinated against SARS-COV2, nasal PCR negative (2) COPD (chronic obstructive pulmonary disease): Status: Chronic Assessment and plan: as above Qualifiers: COPD type: emphysema Emphysema type: centrilobular Qualified Code(s): J43.2 - Centrilobular emphysema (3) Fall: Status: Acute Assessment and plan: will ask P.T. to evaluate her gait stability and strength (4) CKD (chronic kidney disease) stage 3, GFR 30-59 ml/min: Assessment and plan: gently fluid hydration and repeat her BMP tomorrow (5) Hypothyroidism: Assessment and plan: TSH is elevated at 36.1 higher than her previous value on December 05, 2021 and 17.25. Continue increased levothyroxine to 175 mcg daily. consider medication non compliance Qualifiers: Hypothyroidism type: acquired Qualified Code(s): E03.9 - Hypothyroidism, unspecified (6) Non-insulin dependent diabetes mellitus: Assessment and plan: patient has not been on any oral meds or insulin; last A1c was 6.4% on 08/29/21. A1C pending for am monitor glucose bid but if elevated then will increase frequency to AC/HS and cover w/ novolog anticipate hyperglycemia with steroids. (7) Smoker: Assessment and plan: apply nicotine patch (8) Chronic anticoagulation: Assessment and plan: continue Eliquis for her hx of PE (9) Discharge planning issues: Status: Acute Assessment and plan: case management will be following I anticipate a discharge to intermediate facility. discussed with DR Schaffer Subjective Subjective Patient reports: no new complaints, feels better, tolerating liquids well, tolerating a regular diet, shortness of breath and afebrile Exam Const General: cooperative, comfortable, no acute distress and ill appearing chronically Nutritional Appearance: obese Orientation: alert, awake and oriented x3 HENMT Head: normal to inspection, normocephalic and atraumatic Mouth: oral mucosae normal Chest Chest: normal inspection of the chest Resp Effort & Inspection: normal respiratory effort Auscultation: diminished lung sounds (throughout, no coarse breath sound or wheezing noted) Cardio Rate: regular rate Rhythm: regular rhythm GI Inspection: obesity Skin General skin exam: no rashes or lesions noted Extrem General: normal to inspection and full ROM Objective Last Vital Signs Temp 36.7 C 01/24/22 15:13 Pulse 86 01/24/22 15:13 Resp 20 01/24/22 15:13 BP 128/70 01/24/22 15:13 Pulse Ox 94 01/24/22 15:13 Laboratory Results - last 24 hr 01/21/22 01/24/22 01/24/22 07:35 06:36 06:36 WBC 8.22 RBC 3.63 L Hgb 10.3 L Hct 32.8 L MCV 90.4 MCH 28.4 MCHC 31.4 L RDW 16.1 H Plt Count 147 MPV 10.7 Immature Gran % 4.0 Neutrophils % 66.5 Lymphocytes % 20.1 Monocytes % 9.0 Eosinophils % 0.2 Basophils % 0.2 Nucleated RBC % 0 Absolute Neutrophils 5.46 Absolute Lymphocytes 1.65 Absolute Monocytes 0.74 Absolute Eosinophils 0.02 Absolute Basophils 0.02 Sodium 140 Potassium 4.1 Chloride 106 Carbon Dioxide 25.8 Anion Gap 8.2 BUN 32 H Creatinine 1.3 H Estimated GFR/1.73 m2 40.04 Glucose 127 H Calcium 9.0 Magnesium 2.0 Procalcitonin Vancomycin Trough Ur Strep pneumoniae Ag Positive A Add-On Test Request 01/24/22 01/24/22 01/24/22 06:36 06:36 15:50 WBC RBC Hgb Hct MCV MCH MCHC RDW Plt Count MPV Immature Gran % Neutrophils % Lymphocytes % Monocytes % Eosinophils % Basophils % Nucleated RBC % Absolute Neutrophils Absolute Lymphocytes Absolute Monocytes Absolute Eosinophils Absolute Basophils Sodium Potassium Chloride Carbon Dioxide Anion Gap BUN Creatinine Estimated GFR/1.73 m2 Glucose Calcium Magnesium Procalcitonin 1.3 Vancomycin Trough 17.0 Ur Strep pneumoniae Ag Add-On Test Request DONE
[2022-01-24] MEDS: Atorvastatin 40 MG TAB 80 MG PO (20:27)
[2022-01-24 21:05] LABS: Mycoplasma Pneumoniae PCR Negative; Specimen source Sputum
[2022-01-24] MEDS: Melatonin 3 MG TAB PO (21:24)
[2022-01-24] MEDS: ARIPiprazole 5 MG TAB PO (21:24)
[2022-01-24] MEDS: QUEtiapine 25 MG TAB 50 MG PO (21:24)
[2022-01-24] MEDS: Patch Removal 1 EACH TP (21:25)
[2022-01-25] MEDS: CEFEPIME 2 GM in Normal Saline 50 ML IVPB ×3 (00:40→23:51)
[2022-01-25] MEDS: Normal Saline Flush 10 ML SYR IVP ×4 (00:40→23:52)
[2022-01-25] MEDS: Levothyroxine 175 MCG TAB PO (05:25)
[2022-01-25 07:19] LABS: Abs Immature Grans 0.48 10^3/uL (0.0-0.06); Absolute Basophil Count 0.02 10^3/uL (0.0-0.2); Absolute Eosinophil Count 0.02 10^3/uL (0.0-0.7); Absolute Lymphocyte Count 2.07 10^3/uL (1.2-3.4); Absolute Monocyte Count 0.71 10^3/uL (0.1-0.8); Absolute Neutrophil Count 7.46 10^3/uL (1.2-6.7); Basophils % 0.2; Eosinophils % 0.2; HCT 34.3 % (36.0-46.0); Immature Grans % 4.5; Lymphocytes % 19.2; MCH 28.5 pg (27.0-33.0); MCHC 32.1 % (32.0-36.0); MCV 88.9 fL (80-95); MPV 10.8 fL (8.0-11.0); Monocytes % 6.6; Neutrophils % 69.3; Nucleated RBC 0 %; Platelet Count 170 10^3/uL (130-400); RBC 3.86 10^6/uL (3.93-5.22); RDW 16.3 % (11.7-14.6); RDW-SD 53.3 fL; WBC 10.76 10^3/uL (4.4-10.8)
[2022-01-25 07:30] VITALS: BP 159/80; PULSE 83; RESP 18; TEMP 36.7; O2SAT 95
[2022-01-25 07:46] LABS: Anion Gap 9.3 mmol/L (3-11); BUN 27 mg/dL (7-18); CO2 26.7 mmol/L (21.0-32.0); CREATININE 1.2 mg/dL (0.55-1.02); Calcium 9.2 mg/dL (8.5-10.1); Chloride 103 mmol/L (98-107); Estimated GFR 43.91 (mL/min/1.73m2); Glucose 162 mg/dL (74-106); Potassium 4.2 mmol/L (3.5-5.1); Sodium 139 mmol/L (136-145)
[2022-01-25] MEDS: Acetaminophen 325 MG TAB 650 MG PO ×2 (08:17→20:27)
[2022-01-25] MEDS: Apixaban 5 MG TAB PO ×2 (08:17→20:27)
[2022-01-25] MEDS: Ascorbic Acid 500 MG TAB 1000 MG PO ×2 (08:17→20:27)
[2022-01-25] MEDS: Furosemide 40 MG/4 ML VIAL IVP (08:18)
[2022-01-25] MEDS: guaiFENesin 600 MG TABCR 1200 MG PO ×2 (08:18→20:26)
[2022-01-25] MEDS: Insulin Aspart 300 UNITS/3 ML PEN SC ×4 (08:19→21:33)
[2022-01-25] MEDS: Nystatin 500000 UNITS/5 ML SUSP 5ML CUP PO ×3 (08:19→20:27)
[2022-01-25] MEDS: Pantoprazole 40 MG TABCR PO (08:20)
[2022-01-25] MEDS: predniSONE 20 MG TAB 60 MG PO (08:20)
[2022-01-25] MEDS: Nystatin POWDER 15 GM JAR TP ×2 (08:20→20:33)
[2022-01-25] MEDS: VANCOMYCIN/WATER (PEG) 1 GM/200 ML BAG IV (08:21)
[2022-01-25 09:51] VITALS: RESP 20; RESP 8; O2SAT 94
[2022-01-25] MEDS: Albuterol/Ipratropium 3 ML UPD VIAL UPD ×3 (09:51→20:27)
[2022-01-25] MEDS: Budesonide/Formoterol 80/4.5 6.9 GM 60 PUFF INH IH ×2 (09:53→20:45)
[2022-01-25] MEDS: Lidocaine 5% Patch 1 PATCH TP (10:55)
--- NOTE | 2022-01-25 11:14 | W.INDIABCONS ---
Date of service: 01/25/22 Time of Service: 11:14 Diabetes Inpatient Consult Reason for Visit: dm DESCRIPTION/ASSESSMENT: 76 year old female admitted with PNA with hx of smoking, COPD, morbid obesity and Dm2. Most recent A1c: 6.5%. No home Dm meds noted. Getting SS insulin for coverage in house. Following CHO diet with 100% meal completion. Not considered at nutritional risk. Diabetes appears well controlled prior to admission. Weight loss would be of benefit but will be difficult in view of lack of mobility/COPD. Up 17 lbs in last 6 months. INTERVENTION: Recommend outpatient nutrition counseling for weight management PLAN: will monitor po intake, labs and weight Time Spent in Nutritional Counseling and Treatment: 5
--- NOTE | 2022-01-25 11:37 | PT.INTREAT ---
Date of service: 01/25/22 Time of Service: 11:16 PT Notes Visit Reasons: Pneumonia Inpatient Physical Therapy Treatment Note [facility] Date: 01/25/2022 PRECAUTIONS: Activity as tolerated SUBJECTIVE: Fabiola is pleasant and agreeable to participating in PT. She states that she would like to try to do a little more each day. OBJECTIVE: PAIN: No c/o pain BED MOBILITY/TRANSFERS Sit-stand: I Stand-sit: I GAIT Assistive Device: SPC Weight bearing: Full Assist: S Distance: 150' in both a.m. and p.m. Deviation: Slow/steady pace, no SOB, 2L O2 THEREX: Patient was instructed in several LE strengthening exercises, completed in a seated position, as per flow sheet. ASSESSMENT: Patient tolerated session well, without complaint of pain or fatigue. PLAN: Continue with gait training and general conditioning for improved activity tolerance. TREATMENT CODE/TIME: Session 1: 13 minutes; [id number] (11:16) Session 2: 10 minutes; [id number] (15:19)
--- NOTE | 2022-01-25 14:59 | PDOC.CMPRO ---
- If Service Date Differs Date of service: 01/25/22 Time of Service: 14:59 Care Management Progress Note S/O: Fabiola was sitting up in her chair when CM met with her. She reported that she is doing well, and feels that she is making good progress with PT. CM discussed her discharge options, as she does not have a bed offer currently from [facility] or the [facility]. CM will send referrals to other SNF's that are just outside of the immediate area, as requested by Fabiola. Fabiola may have the opportunity to return home, as she is doing well with PT, and is progressing toward her baseline. She would like to see if there are any bed offers overnight, and will decide tomorrow if she will go to SNF vs home with HH RN, PT, OT, WALLPAPER INSPECTOR AND SHIPPER. She will also require new home O2 upon discharge, per report. CM will continue to follow. A: Fabiola is a 76 year old female admitted to [facility] 01/21/22 for Pneumonia P: Fabiola will go to a SNF for short term rehab vs return home with HH services when medically cleared by provider at this time, she is only agreeable to [facility] and the [facility]; & unable to offer a bed. She will follow up with her PCP, community providers, and plan of care as prescribed. Fabiola will be transported via [facility] vs facility w/c van when ready. CM will continue to follow.
--- NOTE | 2022-01-25 15:18 | PGE_ITS ---
Date of Service Date of service: 01/25/22 Time of Service: 15:18 Assessment and Plan Assessment and plan (1) Community acquired pneumonia of right lung: Status: Acute Assessment and plan: broad spectrum antibiotics to cover for Strep, Staph, gram neg. including Pseudomonas, Klebsiella and Proteus. will continue with vancomycin and cefepime day 5/7 as she was recently on levaquin. continue acapella and IS. corticosteroids for her COPD, start to taper. and put her on scheduled nebulized bronchodilators has been vaccinated against SARS-COV2, nasal PCR negative (2) COPD (chronic obstructive pulmonary disease): Status: Chronic Assessment and plan: as above Qualifiers: COPD type: emphysema Emphysema type: centrilobular Qualified Code(s): J43.2 - Centrilobular emphysema (3) Fall: Status: Acute Assessment and plan: will ask P.T. to evaluate her gait stability and strength (4) CKD (chronic kidney disease) stage 3, GFR 30-59 ml/min: Assessment and plan: gently fluid hydration and repeat her BMP tomorrow (5) Hypothyroidism: Assessment and plan: TSH is elevated at 36.1 higher than her previous value on December 05, 2021 and 17.25. Continue increased levothyroxine to 175 mcg daily. consider medication non compliance Qualifiers: Hypothyroidism type: acquired Qualified Code(s): E03.9 - Hypothyroidism, unspecified (6) Non-insulin dependent diabetes mellitus: Assessment and plan: patient has not been on any oral meds or insulin; last A1c was 6.4% on 08/29/21. A1C 6.5, monitor glucose AC/HS and cover w/ novolog anticipate hyperglycemia with steroids but starting to taper so should improve carb controlled diet. (7) Smoker: Assessment and plan: apply nicotine patch (8) Chronic anticoagulation: Assessment and plan: continue Eliquis for her hx of PE (9) Discharge planning issues: Status: Acute Assessment and plan: case management will be following I anticipate a discharge to long-term facility. discussed with DR Schaffer Subjective Subjective Patient reports: no new complaints, feels better, tolerating liquids well, tolerating a regular diet, voiding w/o difficulty, bowel movement, shortness of breath (marked improvement) and afebrile Interval history since last seen: patient continues to work with physical therapy and slowly progress. Exam Const General: cooperative, comfortable, no acute distress and ill appearing chronically Nutritional Appearance: obese Orientation: alert, awake and oriented x3 HENMT Head: normal to inspection, normocephalic and atraumatic Mouth: oral mucosae normal Chest Chest: normal inspection of the chest Resp Effort & Inspection: normal respiratory effort Auscultation: diminished lung sounds (throughout, no coarse breath sound or wheezing noted) Cardio Rate: regular rate Rhythm: regular rhythm GI Inspection: obesity Skin General skin exam: no rashes or lesions noted Extrem General: normal to inspection and full ROM Objective Last Vital Signs Temp 36.7 C 01/25/22 07:30 Pulse 83 01/25/22 07:30 Resp 20 01/25/22 09:51 BP 159/80 H 01/25/22 07:30 Pulse Ox 94 01/25/22 09:51 Laboratory Results - last 24 hr 01/21/22 01/24/22 01/25/22 23:10 15:50 07:05 WBC RBC Hgb Hct MCV MCH MCHC RDW Plt Count MPV Immature Gran % Neutrophils % Lymphocytes % Monocytes % Eosinophils % Basophils % Nucleated RBC % Absolute Neutrophils Absolute Lymphocytes Absolute Monocytes Absolute Eosinophils Absolute Basophils Sodium 139 Potassium 4.2 Chloride 103 Carbon Dioxide 26.7 Anion Gap 9.3 BUN 27 H Creatinine 1.2 H Estimated GFR/1.73 m2 43.91 Glucose 162 H Calcium 9.2 Magnesium 2.0 Vancomycin Trough 17.0 M. pneumoniae Source Sputum M. pneumoniae (PCR) Negative 01/25/22 07:05 WBC 10.76 D RBC 3.86 L Hgb 11.0 L Hct 34.3 L MCV 88.9 MCH 28.5 MCHC 32.1 RDW 16.3 H Plt Count 170 MPV 10.8 Immature Gran % 4.5 Neutrophils % 69.3 Lymphocytes % 19.2 Monocytes % 6.6 Eosinophils % 0.2 Basophils % 0.2 Nucleated RBC % 0 Absolute Neutrophils 7.46 H Absolute Lymphocytes 2.07 Absolute Monocytes 0.71 Absolute Eosinophils 0.02 Absolute Basophils 0.02 Sodium Potassium Chloride Carbon Dioxide Anion Gap BUN Creatinine Estimated GFR/1.73 m2 Glucose Calcium Magnesium Vancomycin Trough M. pneumoniae Source M. pneumoniae (PCR)
[2022-01-25 15:21] VITALS: BP 151/78; PULSE 83; RESP 21; TEMP 36.7; O2SAT 93
--- NOTE | 2022-01-25 20:10 | INDS_ITS ---
Date of service: 01/25/22 PT Notes Visit Reasons: Pneumonia Physical Therapy Inpatient Discharge Summary Date:?01/25/2022 Dates of service: 01/21/2022 through 01/26/2020 This is a clinical summary of care provided for the duration of dates listed above. No charge was made in the completion of this documentation. Referring Doctor:Osiel Blanton PT Orders: PT CONSULT: evaluate and treat regarding gait instability; weakness Precautions: Standard, Fall Patient Profile/Admitting Diagnosis:??Fabiola is a 76-year-old patient who is a smoker, with history of COPD, type 2 diabetes mellitus, pulmonary embolism (chronically anticoagulated with Eliquis), essential hypertension, hypothyroidism, cholelithiasis, diverticulosis, chronic back pain who presented from home via EMS to the ED after having an episode of lightheadedness and sustaining a fall in her living room with a closed head injury but denies loss of consciousness.? PMHX: All Active Problems(Updated 01/21/22 @ 04:38 by Sandeep Blanton) Community acquired pneumonia of right lung (Acute) Hypoxemia (Acute) Back pain (Acute) Cellulitis (Acute) Respiratory failure with hypoxia (Acute) COPD (chronic obstructive pulmonary disease) (Chronic) Low back pain (Acute) Noncompliance with medication regimen (Acute) Pain, joint, knee, right (Acute) Fall (Acute) Blunt head trauma (Acute) Blunt injury of back (Acute) Fall (Acute) Contusion (Acute) Auditory hallucination (Acute) Fall (Acute) Hallucinations (Chronic) Discharge planning issues (Acute) DVT prophylaxis (Acute) Community acquired pneumonia (Acute) Vertigo (Acute) Diverticulosis (Chronic) Cholelithiasis (Chronic) Nausea vomiting and diarrhea (Acute) Unsteady gait when walking (Acute) Constipation (Chronic) Memory impairment (Chronic) 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) Osteoarthritis of right knee (Chronic) Medical History Aneurysm of infrarenal abdominal aorta Chronic anticoagulation CKD (chronic kidney disease) stage 3, GFR 30-59 ml/min COPD (chronic obstructive pulmonary disease) Failure to thrive in adult Fracture of both ankles Hearing loss History of blood transfusion Hx of hyperlipidemia Hypertension Hypothyroidism Non-insulin dependent diabetes mellitus Obesity 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 Pulmonary embolism Seborrheic keratosis Smoker Surgical History History of bilateral tubal ligation History of hernia repair Social History/Home Situation: Lives alone on the first floor of an apartment building, one step to enter. Independent with all mobility of ADLs with single point cane.? Receives meals on wheels for her lunch, able to prepare own breakfast and supper.? Independent with bathing and dressing. Fabiola does not have a life line in place. Equipment Owned/DME: SPC Subjective:? Fabiola is alert and agreeable to PT consult this morning. She notes that she did not get a lot of sleep last night and is really tired. Declines pain. Objective:? General Observation: NT. See most recent LAB TECH notes. Mental Status: NT. See most recent LAB TECH notes. Pain: NT. See most recent LAB TECH notes. Vital Signs: NT. See most recent LAB TECH notes. ROM: Right Upper Extremity: ? Shoulder Flexion limited to 90 degrees AA 100 degrees. Shoulder abduction 90 degrees. ER limited to neutral at side.Elbow flexion WFL. Wrist flexion WFL. Functional opening and closing of hand WFL. Left Upper Extremity:? Shoulder Flexion WFL. Shoulder abduction WFL.ER 20 degrees Elbow flexion WFL. Wrist flexion WFL. Functional opening and closing of hand WFL. Right Lower Extremity: Hip flexion 100 degrees while seated on chair. Hip abduction WFL. Knee flexion WFL. Ankle dorsiflexion to neutral only. Ankle plantarflexion WFL. Left Lower Extremity: Hip unodtet422 degrees while seated on chair. Hip abduction WFL. Knee flexion WFL. Ankle dorsiflexion to neutral only. Ankle plantarflexion WFL. Strength: Right Upper Extremity: Shoulder flexors 3+/5. Shoulder abductors 3+/5. Elbow flexors 4+/5. Elbow extensors 4/5. Slide Machine Tender strong. Left Upper Extremity: Shoulder flexors 4/5. Shoulder abductors 4/5. Elbow flexors 5/5. Elbow extensors 5/5. Slide Machine Tender strong. Right Lower Extremity: Hip flexors 4/5. Hip abductors 4-/5. Knee flexors 4+/5. Knee extensors 4/5. Ankle dorsiflexors 4/5. Ankle plantarflexors 4-/5. Left Lower Extremity: Hip flexors 4/5. Hip abductors 4-/5. Knee flexors 4+/5. Knee extensors 4/5. Ankle dorsiflexors 4/5. Ankle plantarflexors 4-/5. Bed Mobility/Transfers: Sit to stand I Stand to sit I Bed to chair I Gait:?Up to 150 feet using SPC with FWB for 150 feet. Balance: Static Sitting: Normal Dynamic Sitting: Normal Static Standing: Fair Dynamic Standing: Fair Assessment:???Patient is a 76 year old female referred to physical therapy services with the diagnosis of pneumonia,COPD,s/p fall.? Patient presents with clinical signs and symptoms consistent with current/admitting diagnoses that have resulted to mobility limitations, gait instability, generalized weakness, and overall ADL decline as demonstrated by the following impairment level findings: 1.? Decreased strength to B UE/LE major muscle groups 2.? Impaired standing balance 3.? Impaired activity tolerance 4. Shortness of breath Impairments are contributing to the following functional limitations: 1.? Difficulty with ambulation without assistive device 2.? Increased completion time for mobility ADL performance 3.? Increased risk for falls 4.? Difficulty with managing steps alone safely Goals: Goals X1 week 1. Supine-Sit Independent MET 2. Sit-Supine Independent MET 3. Sit-Stand Independent MET 4. Stand-Sit Independent MET 5. Bed-Chair Independent MET 6. Chair-Bed Independent MET 7. Gait Independent with least restrictive assistive device as needed 100 ft or greater with NOT MET 8. Stairs up/down 1 step to enter apartment NOT MET 9. Balance: Improved standing balance to good NOT MET DISCHARGE RECOMMENDATIONS:? Home with services.? Patient will benefit from home health PT services in order to progress mobility level using least restrictive assistive ambulatory device, assess home safety, identify additional equipment needs, and establish a functional maintenance program that will increase ability of patient to remain at home. Thank you for the opportunity to participate in the care of this patient. Ting Posada PT, DPT, CLT [facility] [place], [place]
[2022-01-25] MEDS: Atorvastatin 40 MG TAB 80 MG PO (20:27)
[2022-01-25] MEDS: ARIPiprazole 5 MG TAB PO (21:33)
[2022-01-25] MEDS: QUEtiapine 25 MG TAB 50 MG PO (21:33)
[2022-01-25] MEDS: Melatonin 3 MG TAB PO (21:33)
[2022-01-25 23:15] VITALS: BP 134/78; PULSE 81; RESP 18; TEMP 36.3; O2SAT 96
[2022-01-26] VITALS (7 sets, daily range): BP systolic 133–149; BP diastolic 68–69; PULSE 84–105; RESP 1–24; TEMP 36.2–36.7; O2SAT 87–95
[2022-01-26] MEDS: VANCOMYCIN/WATER (PEG) 1 GM/200 ML BAG IV (00:49)
[2022-01-26] MEDS: Normal Saline Flush 10 ML SYR IVP ×2 (00:50→14:35)
[2022-01-26] MEDS: Levothyroxine 175 MCG TAB PO (06:10)
[2022-01-26 06:47] LABS: Abs Immature Grans 0.61 10^3/uL (0.0-0.06); HCT 35.2 % (36.0-46.0); MCH 27.8 pg (27.0-33.0); MCHC 31.3 % (32.0-36.0); MCV 89.1 fL (80-95); MPV 10.4 fL (8.0-11.0); Nucleated RBC 0 %; Platelet Count 208 10^3/uL (130-400); RBC 3.95 10^6/uL (3.93-5.22); RDW 16.1 % (11.7-14.6); WBC 12.24 10^3/uL (4.4-10.8)
[2022-01-26 07:04] LABS: Anion Gap 7.2 mmol/L (3-11); BUN 33 mg/dL (7-18); CO2 28.8 mmol/L (21.0-32.0); CREATININE 1.2 mg/dL (0.55-1.02); Calcium 9.5 mg/dL (8.5-10.1); Chloride 101 mmol/L (98-107); Estimated GFR 43.91 (mL/min/1.73m2); Glucose 147 mg/dL (74-106); Magnesium 2.1 mg/dL (1.8-2.4); Potassium 4.3 mmol/L (3.5-5.1); Sodium 137 mmol/L (136-145)
[2022-01-26 07:41] LABS: Absolute Lymphocyte Count 2.94 10^3/uL (1.2-3.4); Absolute Neutrophil Count 8.81 10^3/uL (1.2-6.7)
[2022-01-26 07:42] LABS: Absolute Monocyte Count 0.24 10^3/uL (0.1-0.8); Diff Comment Manual Differential; Myelocytes % 2; RBC Morphology Normal
[2022-01-26] MEDS: Apixaban 5 MG TAB PO ×2 (08:28→21:34)
[2022-01-26] MEDS: Ascorbic Acid 500 MG TAB 1000 MG PO ×2 (08:28→21:34)
[2022-01-26] MEDS: Acetaminophen 325 MG TAB 650 MG PO ×2 (08:28→21:35)
[2022-01-26] MEDS: predniSONE 20 MG TAB 40 MG PO (08:28)
[2022-01-26] MEDS: Pantoprazole 40 MG TABCR PO (08:28)
[2022-01-26] MEDS: guaiFENesin 600 MG TABCR 1200 MG PO ×2 (08:28→21:35)
[2022-01-26] MEDS: Nystatin 500000 UNITS/5 ML SUSP 5ML CUP PO ×2 (08:28→14:34)
[2022-01-26] MEDS: Nystatin POWDER 15 GM JAR TP ×2 (08:29→21:45)
[2022-01-26] MEDS: Albuterol/Ipratropium 3 ML UPD VIAL UPD ×4 (08:33→21:41)
[2022-01-26] MEDS: Budesonide/Formoterol 80/4.5 6.9 GM 60 PUFF INH IH ×2 (08:33→21:35)
--- NOTE | 2022-01-26 12:32 | PT.INTREAT ---
Date of service: 01/26/22 Time of Service: 07:48 PT Notes Visit Reasons: Pneumonia Inpatient Physical Therapy Treatment Note [facility] Date: 01/26/2022 PRECAUTIONS: Activity as tolerated SUBJECTIVE: Fabiola is pleasant and agreeable to participating in PT. She states that she feels ready to discharge back to home OBJECTIVE: PAIN: No c/o pain BED MOBILITY/TRANSFERS Sit-stand: I Stand-sit: I GAIT Assistive Device: SPC Weight bearing: Full Assist: S Distance: 150' Deviation: Slow/steady pace, no SOB, 2L O2 ASSESSMENT: Patient has been cleared to ambulate with SPC within her room independently. PLAN: Patient to discharge to home later today, per provider. Recommend PT follow up for home safety assessment. TREATMENT CODE/TIME: 11 minutes; 72254 (07:48)
[2022-01-26] MEDS: Lidocaine 5% Patch 1 PATCH TP (12:55)
[2022-01-26] MEDS: Insulin Aspart 300 UNITS/3 ML PEN SC ×3 (12:55→22:14)
[2022-01-26] MEDS: CEFEPIME 2 GM in Normal Saline 50 ML IVPB (14:35)
--- NOTE | 2022-01-26 15:49 | CMPROGNOTE_ITS ---
- If Service Date Differs Date of service: 01/26/22 Time of Service: 15:50 Care Management Progress Note S/O: Fabiola was sitting up in her chair when CM met with her. She reported that she is going to be discharged later today. Fabiola had hoped to be able to go to a SNF for short term rehab but was unable to receive a bed offer. She will go home with new oxygen through [place] and new home health services for RN,PT, OT, OFFAL ICER POULTRY and SWAGING MACHINE OPERATOR. Per RT, [facility] has determined that she will need a prior au thorization for the oxygen which may not happen today. Fabiola will remain at [facility] until oxygen can be delivered to her home. A: Fabiola is a 76 year old female admitted to [facility] 01/21/22 for Pneumonia P: Fabiola will be discharged home with new home health services for RN,PT,OT, OFFAL ICER POULTRY and SWAGING MACHINE OPERATOR as well as with new oxygen. She will follow up with her PCP, community providers, and plan of care as prescribed. Faboila will be transported via [facility] when ready. CM will continue to follow.
--- NOTE | 2022-01-26 15:49 | PDOC.CMPRO ---
- If Service Date Differs Date of service: 01/26/22 Time of Service: 15:50 Care Management Progress Note S/O: Fabiola was sitting up in her chair when CM met with her. She reported that she is going to be discharged later today. Fabiola had hoped to be able to go to a SNF for short term rehab but was unable to receive a bed offer. She will go home with new oxygen through [place] and new home health services for RN,PT, OT, FIBER PICKER and INTERSTATE BUS DRIVER. Per RT, [facility] has determined that she will need a prior authorization for the oxygen which may not happen today. Fabiola will remain at [facility] until oxygen can be delivered to her home. A: Fabiola is a 76 year old female admitted to [facility] 01/21/22 for Pneumonia P: Fabiola will be discharged home with new home health services for RN,PT,OT, FIBER PICKER and INTERSTATE BUS DRIVER as well as with new oxygen. She will follow up with her PCP, community providers, and plan of care as prescribed. Fabiola will be transported via [facility] when ready. CM will continue to follow.
--- NOTE | 2022-01-26 17:35 | W.PM.PROGNOT ---
Date of Service Date of service: 01/26/22 Time of Service: 11:00 Assessment and Plan Assessment and plan (1) Community acquired pneumonia of right lung: Start date: 01/26/22 Start time: 11:00 Status: Acute Assessment and plan: Blood cx negative. Feeling better. Switched to oral cefpodoxime. As she was suppose to be discharged home today. continue acapella and IS. corticosteroids for her COPD, start to taper. Feeling much better, ready for discharge Exercise oximetery revealing oxygen requirement. has been vaccinated against SARS-COV2, nasal PCR negative (2) COPD (chronic obstructive pulmonary disease): Start date: 01/26/22 Start time: 11:00 Status: Chronic Assessment and plan: as above Qualifiers: COPD type: emphysema Emphysema type: centrilobular Qualified Code(s): J43.2 - Centrilobular emphysema (3) Fall: Start date: 01/26/22 Start time: 11:00 Status: Acute Assessment and plan: Will need HH services at discharge (4) CKD (chronic kidney disease) stage 3, GFR 30-59 ml/min: Start date: 01/26/22 Start time: 11:00 Assessment and plan: baseline (5) Hypothyroidism: Start date: 01/26/22 Start time: 11:00 Assessment and plan: TSH is elevated at 36.1 higher than her previous value on December 05, 2021 and 17.25. Continue increased levothyroxine to 175 mcg daily. consider medication non compliance Qualifiers: Hypothyroidism type: acquired Qualified Code(s): E03.9 - Hypothyroidism, unspecified (6) Non-insulin dependent diabetes mellitus: Start date: 01/26/22 Start time: 11:00 Assessment and plan: patient has not been on any oral meds or insulin; last A1c was 6.4% on 08/29/21. A1C 6.5, monitor glucose AC/HS and cover w/ novolog anticipate hyperglycemia with steroids but starting to taper so should improve carb controlled diet. (7) Smoker: Start date: 01/26/22 Start time: 11:00 Assessment and plan: apply nicotine patch (8) Chronic anticoagulation: Start date: 01/26/22 Start time: 11:00 Assessment and plan: continue Eliquis for her hx of PE (9) Discharge planning issues: Start date: 01/26/22 Start time: 11:00 Status: Acute Assessment and plan: case management will be following I anticipate a discharge to longterm facility. discussed with DR Mcpherson Subjective Subjective Patient reports: no new complaints Interval history since last seen: Doing well. She was suppose to be discharged on oxygen, after exercise oximetery. Waiting prior auth for oxygen otherwise patient is ready for discharge, switched to oral. Will try to have oxygen set up tomorrow. No new complaints Exam Const General: cooperative, comfortable, no acute distress and ill appearing chronically Nutritional Appearance: obese Orientation: alert, awake and oriented x3 HENMT Head: normal to inspection, normocephalic and atraumatic Mouth: oral mucosae normal Chest Chest: normal inspection of the chest Resp Effort & Inspection: normal respiratory effort Auscultation: diminished lung sounds (throughout, no coarse breath sound or wheezing noted) Cardio Rate: regular rate Rhythm: regular rhythm GI Inspection: obesity Skin General skin exam: no rashes or lesions noted Extrem General: normal to inspection and full ROM Objective Last Vital Signs Temp 36.3 C L 01/25/22 23:15 Pulse 90 01/26/22 11:58 Resp 20 01/26/22 17:19 BP 134/78 01/25/22 23:15 Pulse Ox 96 01/25/22 23:15 Laboratory Results - last 24 hr 01/26/22 01/26/22 05:53 05:53 WBC 12.24 H RBC 3.95 Hgb 11.0 L Hct 35.2 L MCV 89.1 MCH 27.8 MCHC 31.3 L RDW 16.1 H Plt Count 208 MPV 10.4 Immature Gran % See Differential Neutrophils % 72.0 Lymphocytes % 24.0 Monocytes % 2.0 Eosinophils % 0.0 Basophils % 0.0 Myelocytes % 2 Nucleated RBC % 0 Absolute Neutrophils 8.81 H Absolute Lymphocytes 2.94 Absolute Monocytes 0.24 Absolute Eosinophils 0.00 Absolute Basophils 0.00 RBC Morphology Normal Sodium 137 Potassium 4.3 Chloride 101 Carbon Dioxide 28.8 Anion Gap 7.2 BUN 33 H Creatinine 1.2 H Estimated GFR/1.73 m2 43.91 Glucose 147 H Calcium 9.5 Magnesium 2.1
[2022-01-26] MEDS: Cefpodoxime 200 MG TAB 400 MG PO (18:39)
[2022-01-26] MEDS: QUEtiapine 25 MG TAB 50 MG PO (21:33)
[2022-01-26] MEDS: Melatonin 3 MG TAB PO (21:34)
[2022-01-26] MEDS: ARIPiprazole 5 MG TAB PO (21:35)
[2022-01-26] MEDS: Atorvastatin 40 MG TAB 80 MG PO (21:35)
[2022-01-27] MEDS: Cefpodoxime 200 MG TAB 400 MG PO ×2 (06:09→18:00)
[2022-01-27] MEDS: Levothyroxine 175 MCG TAB PO (06:09)
[2022-01-27 07:15] VITALS: BP 133/68; PULSE 84; RESP 20; TEMP 36.2; O2SAT 95
[2022-01-27 07:19] VITALS: BP 126/78; PULSE 87; RESP 21; TEMP 36.7; O2SAT 93
[2022-01-27] MEDS: predniSONE 20 MG TAB 40 MG PO (08:23)
[2022-01-27] MEDS: guaiFENesin 600 MG TABCR 1200 MG PO ×2 (08:23→20:54)
[2022-01-27] MEDS: Acetaminophen 325 MG TAB 650 MG PO ×2 (08:24→20:54)
[2022-01-27] MEDS: Nystatin 500000 UNITS/5 ML SUSP 5ML CUP PO ×3 (08:24→20:53)
[2022-01-27] MEDS: Pantoprazole 40 MG TABCR PO (08:24)
[2022-01-27] MEDS: Apixaban 5 MG TAB PO ×2 (08:24→20:54)
[2022-01-27] MEDS: Ascorbic Acid 500 MG TAB 1000 MG PO ×2 (08:24→20:54)
[2022-01-27] MEDS: Nystatin POWDER 15 GM JAR TP ×2 (08:25→20:56)
[2022-01-27 09:17] VITALS: RESP 20; RESP 8
[2022-01-27] MEDS: Albuterol/Ipratropium 3 ML UPD VIAL UPD ×4 (09:17→20:54)
[2022-01-27] MEDS: Budesonide/Formoterol 80/4.5 6.9 GM 60 PUFF INH IH ×2 (09:17→21:07)
[2022-01-27] MEDS: Lidocaine 5% Patch 1 PATCH TP (10:27)
[2022-01-27 12:03] VITALS: RESP 20
[2022-01-27] MEDS: Insulin Aspart 300 UNITS/3 ML PEN SC ×3 (12:06→21:09)
--- NOTE | 2022-01-27 13:40 | W.PM.PROGNOT ---
Date of Service Date of service: 01/27/22 Time of Service: 13:40 Assessment and Plan Assessment and plan (1) Community acquired pneumonia of right lung: Start date: 01/27/22 Start time: 13:42 Status: Acute Assessment and plan: Blood cx negative. Feeling better. Switched to oral cefpodoxime. As she was suppose to be discharged but held up by prior auth for O2. Will likely be discharged on Saturday continue acapella and IS. , start to taper steroids decrease to 30 tomorrow (2) COPD (chronic obstructive pulmonary disease): Start date: 01/27/22 Start time: 13:44 Status: Chronic Assessment and plan: as above Qualifiers: COPD type: emphysema Emphysema type: centrilobular Qualified Code(s): J43.2 - Centrilobular emphysema (3) Fall: Start date: 01/27/22 Start time: 13:44 Status: Acute Assessment and plan: Will need HH services at discharge (4) CKD (chronic kidney disease) stage 3, GFR 30-59 ml/min: Start date: 01/27/22 Start time: 13:44 Assessment and plan: baseline (5) Hypothyroidism: Start date: 01/27/22 Start time: 13:44 Assessment and plan: TSH is elevated at 36.1 higher than her previous value on December 05, 2021 and 17.25. Continue increased levothyroxine to 175 mcg daily. consider medication non compliance Qualifiers: Hypothyroidism type: acquired Qualified Code(s): E03.9 - Hypothyroidism, unspecified (6) Non-insulin dependent diabetes mellitus: Start date: 01/27/22 Start time: 11:00 Assessment and plan: patient has not been on any oral meds or insulin; last A1c was 6.4% on 08/29/21. A1C 6.5, monitor glucose AC/HS and cover w/ novolog anticipate hyperglycemia with steroids carb controlled diet. (7) Smoker: Start date: 01/27/22 Start time: 13:45 Assessment and plan: apply nicotine patch, encourage cessation especially being oxygen dependent (8) Chronic anticoagulation: Start date: 01/27/22 Start time: 13:46 Assessment and plan: continue Eliquis for her hx of PE (9) Discharge planning issues: Start date: 01/27/22 Start time: 13:46 Status: Acute Assessment and plan: case management will be following Home with services discussed with DR Mcpherson Subjective Subjective Patient reports: no new complaints Interval history since last seen: waiting prior auth for oxygen. Likely wont be discharged until Saturday when oxygen can be set up at home Exam Const General: cooperative, comfortable, no acute distress and ill appearing chronically Nutritional Appearance: obese Orientation: alert, awake and oriented x3 HENMT Head: normal to inspection, normocephalic and atraumatic Mouth: oral mucosae normal Chest Chest: normal inspection of the chest Resp Effort & Inspection: normal respiratory effort Auscultation: diminished lung sounds (throughout, no coarse breath sound or wheezing noted) Cardio Rate: regular rate Rhythm: regular rhythm GI Inspection: obesity Skin General skin exam: no rashes or lesions noted Extrem General: normal to inspection and full ROM Objective Last Vital Signs Temp 36.7 C 01/27/22 07:19 Pulse 87 01/27/22 07:19 Resp 20 01/27/22 12:03 BP 126/78 01/27/22 07:19 Pulse Ox 93 01/27/22 07:19 Laboratory Results - last 24 hr 01/27/22 07:00 Vancomycin Trough Cancelled
[2022-01-27 15:15] VITALS: BP 136/79; PULSE 89; RESP 19; TEMP 36.7; O2SAT 95
[2022-01-27 15:42] VITALS: RESP 1
[2022-01-27] MEDS: Melatonin 3 MG TAB PO (20:55)
[2022-01-27] MEDS: Atorvastatin 40 MG TAB 80 MG PO (20:55)
[2022-01-27] MEDS: ARIPiprazole 5 MG TAB PO (20:56)
[2022-01-27] MEDS: QUEtiapine 25 MG TAB 50 MG PO (20:56)
[2022-01-27] MEDS: Patch Removal 1 EACH TP (20:57)
[2022-01-28] MEDS: Levothyroxine 175 MCG TAB PO (05:56)
[2022-01-28] MEDS: Cefpodoxime 200 MG TAB 400 MG PO (05:56)
[2022-01-28 07:25] VITALS: BP 127/74; PULSE 77; RESP 19; TEMP 36.3; O2SAT 93
[2022-01-28 07:47] VITALS: RESP 20; RESP 8
[2022-01-28] MEDS: Albuterol/Ipratropium 3 ML UPD VIAL UPD ×2 (07:47→10:56)
[2022-01-28] MEDS: Budesonide/Formoterol 80/4.5 6.9 GM 60 PUFF INH IH (07:48)
[2022-01-28] MEDS: Nystatin 500000 UNITS/5 ML SUSP 5ML CUP PO (08:17)
[2022-01-28] MEDS: Apixaban 5 MG TAB PO (08:18)
[2022-01-28] MEDS: Acetaminophen 325 MG TAB 650 MG PO (08:18)
[2022-01-28] MEDS: Pantoprazole 40 MG TABCR PO (08:18)
[2022-01-28] MEDS: guaiFENesin 600 MG TABCR 1200 MG PO (08:18)
[2022-01-28] MEDS: predniSONE 20 MG TAB 40 MG PO (08:18)
[2022-01-28] MEDS: Ascorbic Acid 500 MG TAB 1000 MG PO (08:28)
--- NOTE | 2022-01-28 10:35 | W.PM.PROGNOT ---
Date of Service Date of service: 01/28/22 Time of Service: 10:36 Assessment and Plan Assessment and plan (1) Community acquired pneumonia of right lung: Start date: 01/28/22 Start time: 10:38 Status: Acute Assessment and plan: On oral cefpodoxime Awaiting prior auth for oxygen for discharge Will repeat exercise oximetery tomorrow. (2) COPD (chronic obstructive pulmonary disease): Start date: 01/28/22 Start time: 10:39 Status: Chronic Assessment and plan: as above Qualifiers: COPD type: emphysema Emphysema type: centrilobular Qualified Code(s): J43.2 - Centrilobular emphysema (3) Fall: Start date: 01/28/22 Start time: 10:41 Status: Acute Assessment and plan: Will need HH services at discharge (4) CKD (chronic kidney disease) stage 3, GFR 30-59 ml/min: Start date: 01/27/22 Start time: 13:44 Assessment and plan: baseline (5) Hypothyroidism: Start date: 01/28/22 Start time: 10:41 Assessment and plan: TSH is elevated at 36.1 higher than her previous value on December 05, 2021 and 17.25. Continue increased levothyroxine to 175 mcg daily. consider medication non compliance Qualifiers: Hypothyroidism type: acquired Qualified Code(s): E03.9 - Hypothyroidism, unspecified (6) Non-insulin dependent diabetes mellitus: Start date: 01/28/22 Start time: 10:41 Assessment and plan: patient has not been on any oral meds or insulin; last A1c was 6.4% on 08/29/21. A1C 6.5, monitor glucose AC/HS and cover w/ novolog anticipate hyperglycemia with steroids carb controlled diet. (7) Smoker: Start date: 01/28/22 Start time: 10:41 Assessment and plan: Patient states that if she requires oxygen that she will quite. She agrees to nicotine patches on discharge (8) Chronic anticoagulation: Start date: 01/28/22 Start time: 10:42 Assessment and plan: continue Eliquis for her hx of PE (9) Discharge planning issues: Start date: 01/28/22 Start time: 10:42 Status: Acute Assessment and plan: case management will be following Home with HH services discussed with DR Mcpherson Subjective Subjective Patient reports: no new complaints Interval history since last seen: Sitting up in chair. Will repeat exercise oximetery tomorrow. She has been on cefpodoxime since Saturday. Waiting prior auth for oxygen. Possible discharge in am. Exam Const General: cooperative, comfortable, no acute distress and ill appearing chronically Nutritional Appearance: obese Orientation: alert, awake and oriented x3 HENMT Head: normal to inspection, normocephalic and atraumatic Mouth: oral mucosae normal Chest Chest: normal inspection of the chest Resp Effort & Inspection: normal respiratory effort Auscultation: diminished lung sounds (throughout, no coarse breath sound or wheezing noted) Cardio Rate: regular rate Rhythm: regular rhythm GI Inspection: obesity Skin General skin exam: no rashes or lesions noted Extrem General: normal to inspection and full ROM Objective Last Vital Signs Temp 36.3 C L 01/28/22 07:25 Pulse 77 01/28/22 07:25 Resp 20 01/28/22 07:47 BP 127/74 01/28/22 07:25 Pulse Ox 93 01/28/22 07:25
[2022-01-28] MEDS: Lidocaine 5% Patch 1 PATCH TP (10:37)
[2022-01-28 11:05] VITALS: PULSE 90; RESP 20; O2SAT 89; O2SAT 91; O2SAT 95
--- NOTE | 2022-01-28 11:36 | W.PM.DS.N ---
Date of service: 01/28/22 Time of Service: 11:37 DS: Diagnosis Discharge Diagnosis (1) Community acquired pneumonia of right lung: Start date: 01/28/22 Start time: 11:37 Status: Acute Asessment and Plan: Repeat exercise oximetery revealing that she no longer needs oxygen. RT ambulated patient she did not fall below 89% oxygen level when ambulating on RA. She was initially treated with cefepime and vanco for 3 days then going to be discharged home on oxygen however she required a prior auth. BC were negative She was switched to cefpodoxime she will need another 5 days worth of medications along with HH services (2) COPD (chronic obstructive pulmonary disease): Start date: 01/28/22 Start time: 12:00 Status: Chronic Asessment and Plan: as above (3) Fall: Start date: 01/28/22 Start time: 12:00 Status: Acute Asessment and Plan: HH services (4) CKD (chronic kidney disease) stage 3, GFR 30-59 ml/min: Start date: 01/28/22 Start time: 12:00 Asessment and Plan: at baseline (5) Hypothyroidism: Start date: 01/28/22 Start time: 12:01 Asessment and Plan: TSH is elevated at 36.1 higher than her previous value on December 05, 2021 and 17.25.? Continue increased levothyroxine to 175 mcg daily. consider medication non compliance (6) Non-insulin dependent diabetes mellitus: Start date: 01/28/22 Start time: 12:01 Asessment and Plan: will resume all home medications (7) Smoker: Start date: 01/28/22 Start time: 12:01 Asessment and Plan: Now that she is not requiring oxygen she will continue to smoke (8) Chronic anticoagulation: Start date: 01/28/22 Start time: 12:02 Asessment and Plan: continue eliqiuis discussed with Dr. Mcpherson Discharge Plan Disposition Patient Disposition: HOME W/HOME HEALTH SERVICE Condition: Improving Discharge Details Reason For Visit: Pneumonia Admit Date/Time: 01/21/22 04:03 Admit Provider: Sandeep Blanton Attending Provider: Sandeep Blanton Primary Care Provider: Kathleen Azevedo Hospital Course Hospital Course: 76-year-old patient who is a smoker, COPD, type 2 diabetes mellitus, pulmonary embolism (chronically anticoagulated with Eliquis), essential hypertension, hypothyroidism, cholelithiasis, diverticulosis, chronic back pain with a prior COVID-19 infection in September 2021, but now vaccinated presented from home via EMS after having an episode of lightheadedness and sustaining a fall with a closed head injury but denied loss of consciousness.? Patient complained of chest tightness and dyspnea and cough with finding of room air saturation 84% which came up to 94% on 2 L/min per nasal cannula.? ER CXR revealed RML and RLL infiltrate. Labs were significant for VBG w/ PCO2 of 52 which is her baseline. WBC 11,200, normal troponin, normal electrolytes but elevated BUN and creatinine @ 46 and 1.3 suggestive of dehydration. EKG demonstrates sinus tachycardia w/out ischemic changes.?She was admitted to [facility] for further management. Over course of treatment she was initiated on cefepime and vanco, required oxygen, she received three days of IV antibiotics, blood cx were negative and started feeling better. LS were back to normal. She was on a steroid taper. Exercise oximetry was done on Saturday and she was still requiring oxygen, with dropping down to 84% on RA. She required prior auth therefore she was kept here until prior auth went through. She was on cefpodoxime through the weekend. Today she had a repeat exercise oximetry and did not drop RA saturation below 89% with ambulation, therefore she is being discharged home on cefpodoxime for another 5 days. She should f/u with her pcp in 1-2 weeks. HH services will be set up. Home Meds and New Rx's Prescriptions: New cefpodoxime 200 mg Tablet 400 mg PO Q12H Qty: 20 0RF guaifenesin [Mucinex] 600 mg Tablet Extended Release 12hr 1,200 mg PO BID Qty: 10 0RF prednisone 20 mg Tablet 20 mg PO DAILY Qty: 5 0RF Rx Instructions: Take 1 tablet by mouth once a day x 3 days, then half a tablet daily x 4 more days levothyroxine 175 mcg Tablet 175 mcg PO DAILY@0600 Qty: 30 0RF Continued ipratropium-albuterol 0.5 mg-3 mg(2.5 mg base)/3 mL Solution For Nebulization 3 ml UPD Q4H PRN PRN (Reason: shortness of breath or wheezing) Qty: 180 0RF pantoprazole 40 mg Tablet,Delayed Release (Dr/Ec) 40 mg PO DAILY@0730 Qty: 30 0RF acetaminophen [Mapap Arthritis Pain] 650 mg Tablet Extended Release 650 mg PO BID 0RF docusate sodium 100 mg capsule 100 mg PO BID PRN PRN0RF Label Comments: TAKE 1 CAPSULE BY MOUTH TWICE DAILY NEEDED Trelegy Ellipta 100-62.5-25 mcg blister with device 1 inh INHALATION DAILY 0RF Label Comments: INHALE 1 PUFF BY MOUTH EVERY DAY Flovent HFA 220 mcg/actuation HFA aerosol inhaler 2 inh INHALATION BID 0RF Label Comments: INHALE 2 PUFFS BY MOUTH TWICE DAILY ondansetron HCl 4 mg tablet 4 mg PO PRN PRN0RF Label Comments: TAKE 1 TABLET BY MOUTH EVERY 8 HOURS NEEDED FOR NAUSEA OR DIZZINESS diazepam 5 mg tablet 5 mg PO PRN PRN0RF Label Comments: Take 1 tablet by mouth three times a day as needed take for nausea cholecalciferol (vitamin D3) 25 mcg (1,000 unit) tablet 2,000 unit PO DAILY 0RF Label Comments: Take 2 tablet by mouth once a day aspirin 81 mg tablet,delayed release (DR/EC) 81 mg PO DAILY 0RF Label Comments: TK 1 T PO D atorvastatin 80 mg tablet 80 mg PO DAILY 0RF Label Comments: Take 1 tablet by mouth every evening Eliquis 5 mg tablet 5 mg PO BID Qty: 71 0RF Rx Instructions: Take 10 mg BID x 5 days and this afternoon. Then 5 mg BID aripiprazole 5 mg tablet 5 mg PO HS 0RF Label Comments: TAKE 1 TABLET BY MOUTH AT BEDTIME quetiapine 25 mg Tablet 50 mg PO HS Qty: 20 0RF ascorbic acid (vitamin C) [Vitamin C] 500 mg Tablet 1,000 mg PO BID Qty: 60 0RF lidocaine [Lidoderm] 1 PATCH patch 1 patch Topical Q24H Qty: 4 0RF Discontinued levothyroxine 150 mcg tablet 150 mcg PO DAILY 0RF Label Comments: TAKE 1 TABLET BY MOUTH DAILY prednisone 20 mg tablet 40 mg PO BID 0RF Label Comments: Take 2 tablet by mouth once a day x 3 days, then on tablet daily x 4 more day cefpodoxime 200 mg tablet 200 mg PO BID Qty: 10 0RF Rx Instructions: must administer with a meal/food Discharge Instructions Instructions: Cefpodoxime Proxetil (By mouth), Bacterial Pneumonia (DC), Fall Prevention (DC) Additional Instructions: Take prescriptions as prescribed. 5 days of cefpodoxime, and take prednisone as prescribed. Follow up with your PCP in 1-2 weeks. Home health services is being set up You will need to repeat your thyroid level with your PCP as your dose has changed from 160 mcg to 175 mcg and it is important to take your medication Stand Alone Forms: Nursing Discharge Form Activity:: Activity as Tolerated Equipment/Supplies:: No Equipment Needed Diet:: Carb Counting Discharge Orders Discharge Orders: Discharge Order (Routine); Ordered 01/28/22 Ordered By: Stefani Brothers DS: Summary Time Spent with Patient providing and/or coordinating discharge services: Greater than 30 minutes Status at Discharge Functional status at discharge: uses cane/walker Overall status at discharge: patient is back to baseline Mental Status: mental status grossly normal Speech and Movement: speech and movement normal Mood: congruent mood Affect: normal affect Exam Const General: cooperative, comfortable, no acute distress and ill appearing chronically Nutritional Appearance: obese Orientation: alert, awake and oriented x3 HENMT Head: normal to inspection, normocephalic and atraumatic Mouth: oral mucosae normal Chest Chest: normal inspection of the chest Resp Effort & Inspection: normal respiratory effort Auscultation: diminished lung sounds (throughout, no coarse breath sound or wheezing noted) Cardio Rate: regular rate Rhythm: regular rhythm GI Inspection: obesity Skin General skin exam: no rashes or lesions noted Extrem General: normal to inspection and full ROM Psych Mental Status: mental status grossly normal Speech and Movement: speech and movement normal Mood: congruent mood Affect: normal affect DS: Data Vitals/I&O Vitals and I&O: Vital Signs Temperature 36.3 C L 01/28/22 07:25 Temperature Source Tympanic 01/28/22 07:25 Pulse 77 01/28/22 07:25 Pulse Rhythm Regular 01/28/22 08:20 Pulse 95 H 01/21/22 04:16 Respiratory Rate 20 01/28/22 07:47 Respiratory Effort Non-Labored 01/28/22 08:20 Respiratory Depth Normal 01/28/22 08:20 Respiratory Pattern Normal 01/28/22 08:20 Blood Pressure 127/74 01/28/22 07:25 Blood Pressure Mean 66 01/21/22 04:16 Blood Pressure Position Supine 01/21/22 01:23 Pulse Oximetry 93 01/28/22 07:25 Oxygen Delivery Method Nasal Cannula 01/28/22 07:47 Oxygen Flow Rate 2 01/28/22 07:47 Fraction of Inspired Oxygen (FIO2) 29 01/28/22 07:47 Pain Level 0 01/27/22 08:24 Comment 01/27/22 23:50 Intake & Output 01/27/22 01/27/22 01/28/22 11:59 23:59 12:59 Intake Total 240 / 600 360 / 600 720 / 720 Output Total 1502 / 1502 400 / 400 Balance 240 / -902 -1142 / -902 320 / 320 Intake: Oral 240 / 600 360 / 600 720 / 720 Output: Urine 1502 / 1502 400 / 400 Other: Urine Color Yellow Pale Yellow Urine Appearance Clear Clear Clear Urine Odor Normal Normal Comment pt voided in toilet and flushed amount appearance and color is unknown unmeasured void Flushed before able to check Stool Occult Blood Negative Stool Size Small Stool Characteristics Soft Formed Voiding Methods Toilet Toilet Toilet Data Completed and Pending Completed studies during hospitalization [Text1]: Exam(s) PROCEDURE INFORMATION: Exam: XR Chest Exam date and time: 01/21/2022 1:12 AM Age: 76 years old Clinical indication: Shortness of breath; Patient HX: SOB TECHNIQUE: Imaging protocol: XR of the chest. Views: 1 view. COMPARISON: XR PORTABLE CHEST AP 12/05/2021 1:11 AM FINDINGS: Limited due to positioning/rotation Lungs:? Right middle/lower lobe opacities Pleural spaces:? Small right pleural effusion. No pneumothorax. Heart/Mediastinum: No cardiomegaly. Bones/joints: Unremarkable. IMPRESSION: Right middle/lower lobe opacities and small right pleural fluid Exam(s) XR PORTABLE CHEST AP EXAM:? XR PORTABLE CHEST AP CLINICAL HISTORY:? SOB TECHNIQUE:? COMPARISON:? CR,XR XR PORTABLE CHEST AP from 12/05/2021 FINDINGS: Portable semi upright chest at 0122 hours. The heart is not enlarged.? In comparison with prior examination December 05, there is markedly increased opacity at the right lung base, probably predominantly involving right lower lobe.? There also appears to be a right pleural effusion.? Left lung remains clear with no left pleural effusion. IMPRESSION: The appearance is suggestive of a worsening pneumonia of the right lung base.? Appropriate follow-up films requested. : 1945 Age: 76 ? Exam(s) a CT:CT head & cervical spine wo Exam(s) CT HEAD ? CERVICAL SPINE WO EXAM:? CT HEAD ? CERVICAL SPINE WO COMPARISON:? CT CT HEAD ? CERVICAL SPINE WO from 09/19/2021 FINDINGS: CT examination of the cervical spine was performed without contrast administration. Motion artifact degrades image quality. There is no evidence of acute cervical spine fracture or dislocation. Intervertebral disc spaces are well maintained. Tracheolaryngeal structures appear intact. No cervical mass or adenopathy. Noncontrast cranial CT was performed.? Motion artifact degrades the images obtained. Ventricular system is normal in appearance. No evidence of acute intracranial hemorrhage, mass effect, or midline shift.? Please note that subtle abnormalities might not be appreciated on this motion artifact limited scan. No calvarial fracture. The orbital and temporal bone structures appear intact. Visualized mastoid air cells and paranasal sinuses appear clear. IMPRESSION: No evidence of acute cervical spine injury.? Motion limited study. No evidence of acute intracranial injury.? Motion limited study. Exam(s) PROCEDURE INFORMATION: Exam: CT Head Without Contrast Exam date and time: 01/21/2022 2:56 AM Age: 76 years old Clinical indication: Injury or trauma; Blunt trauma (contusions or hematomas); Patient HX: Fall - head/neck trauma on eliquis TECHNIQUE: Imaging protocol: Computed tomography of the head without contrast. COMPARISON: CT HEAD CERVICAL SPINE WO 09/19/2021 2:27 AM FINDINGS: Limited due to motion artifact Brain: No hemorrhage. Unremarkable white matter. No mass effect. Cerebral ventricles: No ventriculomegaly. Paranasal sinuses: Visualized sinuses are unremarkable. No fluid levels. Mastoid air cells: Visualized mastoid air cells are well aerated. Bones/joints: Unremarkable. No acute fracture. Soft tissues: Unremarkable. IMPRESSION: No acute intracranial hemorrhage accounting for motion artifact.? Continued CT follow-up as clinically indicated PFSH All Active Problems Palliative care status (Acute) Discharge planning issues (Acute) Community acquired pneumonia of right lung (Acute) Hypoxemia (Acute) Back pain (Acute) Cellulitis (Acute) Respiratory failure with hypoxia (Acute) COPD (chronic obstructive pulmonary disease) (Chronic) Low back pain (Acute) Noncompliance with medication regimen (Acute) Pain, joint, knee, right (Acute) Fall (Acute) Blunt head trauma (Acute) Blunt injury of back (Acute) Fall (Acute) Contusion (Acute) Auditory hallucination (Acute) Fall (Acute) Hallucinations (Chronic) Discharge planning issues (Acute) DVT prophylaxis (Acute) Community acquired pneumonia (Acute) Vertigo (Acute) Diverticulosis (Chronic) Cholelithiasis (Chronic) Nausea vomiting and diarrhea (Acute) Unsteady gait when walking (Acute) Constipation (Chronic) Memory impairment (Chronic) 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) Osteoarthritis of right knee (Chronic) Medical History Aneurysm of infrarenal abdominal aorta Chronic anticoagulation CKD (chronic kidney disease) stage 3, GFR 30-59 ml/min COPD (chronic obstructive pulmonary disease) Failure to thrive in adult Fracture of both ankles Hearing loss History of blood transfusion Hx of hyperlipidemia Hypertension Hypothyroidism Non-insulin dependent diabetes mellitus Obesity 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 Pulmonary embolism Seborrheic keratosis Smoker Surgical History History of bilateral tubal ligation History of hernia repair Family History Father Diabetes Social History Smoking/Tobacco Use Status: Current every day Tobacco Type: cigarettes Years smoked: 58 Tobacco: How many years used: 15 Counseling given: provider counseling and support medications Smoking risk assessment performed?: Yes Alcohol Intake: never Drug use: Never Substance use type: does not use Household members: none Housing: apartment Number of Children: 3 number of grandchildren: 1 What is your relationship status?: Panel score (0-1 are the most socially isolated patients): 0 What type of physical activity do you participate in: walking Seatbelt use: always Do you feel safe at home: Yes Do you feel safe in your relationship?: Yes
[2022-01-28] MEDS: Insulin Aspart 300 UNITS/3 ML PEN SC (11:58)
--- NOTE | 2022-01-28 12:42 | PDOC.HHF2F_ITS ---
Home Health Certification Home Health Certification: 1. Encounter Date and Reason I certify that Fabiola Martínez was seen by Stefani Brothers on 01/28/22 and that I had a [id number] encounter with this patient that meets the physician face to face encounter requirements. 2. Clinical Findings Supporting Skilled Need and Homebound Status I certify that home health services are medically necessary, include either intermittent half-way and/or physical/speech therapy, and that this patient is homebound in that absences from the home require considerable and taxing effort and are infrequent or of short duration, or are attributable to the need to receive medical care. [X] (a) Attached documentation from encounter provides clinical findings supporting skilled need and homebound status (including what assistance patient requires to leave the home). The encounter with the patient was in whole, or in part, for the following medical condition, which is the primary reason for home health care: Pneumonia Nursing Home: Patient would benefit from nursing to help with medication management, adls Physical Therapy: Patient would benefit from PT/OT for balance and strengthening REVERSE UNIT OPERATOR: Patient would benefit from community connections for services INTERNET ARCHITECT: Patient would benefit from a INTERNET ARCHITECT for help with ADLs and help with every day activities. Homebound: Unable to leave home without assitance 3. Certification and Authentication I certify that I composed the above information based on my clinical judgement relating to this patient's medical condition and, if applicable, clinical findings communicated to me by the NPP or inpatient physician who performed the Home Health Referral. All further orders will be obtained through __Kathleen Azevedo____(Community Based Physician - PCP)
--- NOTE | 2022-01-28 15:39 | CMDISCH_ITS ---
- If Service Date Differs Date of service: 01/28/22 Time of Service: 15:39 LACE Index Scoring Tool - Questions: Length of Stay (in days): 7 - 13 Acuity (Admit via E.D.?): Yes Comorbidities: Liver or Renal Disease E.D. Visits: 11 - Answers: Total Score: 17 Risk of Readmission: High Risk Care Management Discharge Reason for Hospitalization: Pneumonia Discharge Plan: Fabiola is discharged home with new Home Health RN, PT, OT, LIGHTING EQUIPMENT OPERATOR, and VACUUM CLOSING MACHINE OPERATOR services. She will follow up with her PCP and discharge plan of care as prescribed. She is transported home via RCT coordinated by CM. Patient/Family Education Needs: Review of discharge instructions; discuss Ask Me Three and self management. Services Needed at Discharge: Transportation (RCT)
== END 2022-01-28 13:08 | disposition home health service (06) | DRG 195 ==
LOC: ER 04:44 → MS 05:17
PROVIDERS: Internal Medicine; Nurse Practitioner Family; Admitting Provider Internal Medicine; Emergency Provider Emergency Medicine; PCP Nurse Practitioner; Visit Provider Internal Medicine
DX: J18.9 Pneumonia, unspecified organism (principal); J43.2 Centrilobular emphysema; E03.9 Hypothyroidism, unspecified; E11.9 Type 2 diabetes mellitus without complications; F17.210 Nicotine dependence, cigarettes, uncomplicated; Z79.01 Long term (current) use of anticoagulants; N18.30 Chronic kidney disease, stage 3 unspecified; Z86.711 Personal history of pulmonary embolism; I10 Essential (primary) hypertension; K57.90 Diverticulosis of intestine, part unspecified, without perforation or abscess without bleeding; G89.29 Other chronic pain; M54.9 Dorsalgia, unspecified; Z86.16 Personal history of COVID-19; R09.02 Hypoxemia; K80.20 Calculus of gallbladder without cholecystitis without obstruction; R26.81 Unsteadiness on feet; K59.09 Other constipation; Z79.84 Long term (current) use of oral hypoglycemic drugs; E66.9 Obesity, unspecified; Z68.39 Body mass index [BMI] 39.0-39.9, adult; Z91.14 Patient's other noncompliance with medication regimen; W19.XXXA Unspecified fall, initial encounter
CPT/HCPCS: 36410; 36415; 80048; 80053; 82805; 84145; 87040; 87081; 87102; 87206; 87449; 87632; 87635; 93005; 94618; 94640; 96361; 96365; 96366; 97162; 97530; 99285; 70450; 71045; 72125; 80202; 81003; 81015; 83036; 83735; 84436; 84439; 84443; 84484; 85025; 85379; 87070; 87205; 87581; 87899; 93010; 94667; 99222; 99231; 99232; 99233; 99239; J1940; J1956; J3490; J7512; J7613; J7620

== ENCOUNTER 2022-02-11 14:16 | Emergency (ER) | payer OTHER, MEDICAID, SELFPAY ==
[2022-02-11] VITALS (22 sets, daily range): BP systolic 130–150; BP diastolic 64–84; PULSE 54–86; RESP 10–21; TEMP 36; O2SAT 65–100
--- NOTE | 2022-02-11 14:15 | RT.EKG_ITS ---
APPROVED REPORT Exam: Resting ECG Reason for Exam: dizziness Patient Location: E HR:56 bpm ECG Measurements Heart Rate 56 AXIS UT 174 P 69 QRSd 95 QRS -29 QT 440 T 54 QTc 425 Conclusion Sinus bradycardia...rate< 60. Sinus. No STEMI. I have reviewed and interpreted ECG and agree with software generated interpretation.
--- NOTE | 2022-02-11 14:37 | W.ED.GENAD ---
Discharge Plan Disposition Patient Disposition: HOME Condition: Stable Discharge Details Clinical Impression: Dizziness, Fall at home, Head injury Primary Care Provider: Kathleen Azevedo ED Provider: Tiff Gould Home Meds and New Rx's Prescriptions: Continued ipratropium-albuterol 0.5 mg-3 mg(2.5 mg base)/3 mL Solution For Nebulization 3 ml UPD Q4H PRN PRN (Reason: shortness of breath or wheezing) Qty: 180 0RF pantoprazole 40 mg Tablet,Delayed Release (Dr/Ec) 40 mg PO DAILY@0730 Qty: 30 0RF acetaminophen [Mapap Arthritis Pain] 650 mg Tablet Extended Release 650 mg PO BID 0RF docusate sodium 100 mg capsule 100 mg PO BID PRN PRN0RF Label Comments: TAKE 1 CAPSULE BY MOUTH TWICE DAILY NEEDED Trelegy Ellipta 100-62.5-25 mcg blister with device 1 inh INHALATION DAILY 0RF Label Comments: INHALE 1 PUFF BY MOUTH EVERY DAY Flovent HFA 220 mcg/actuation HFA aerosol inhaler 2 inh INHALATION BID 0RF Label Comments: INHALE 2 PUFFS BY MOUTH TWICE DAILY ondansetron HCl 4 mg tablet 4 mg PO PRN PRN0RF Label Comments: TAKE 1 TABLET BY MOUTH EVERY 8 HOURS NEEDED FOR NAUSEA OR DIZZINESS diazepam 5 mg tablet 5 mg PO PRN PRN0RF Label Comments: Take 1 tablet by mouth three times a day as needed take for nausea cholecalciferol (vitamin D3) 25 mcg (1,000 unit) tablet 2,000 unit PO DAILY 0RF Label Comments: Take 2 tablet by mouth once a day cefpodoxime 200 mg Tablet 400 mg PO Q12H Qty: 20 0RF guaifenesin [Mucinex] 600 mg Tablet Extended Release 12hr 1,200 mg PO BID Qty: 10 0RF prednisone 20 mg Tablet 20 mg PO DAILY Qty: 5 0RF Rx Instructions: Take 1 tablet by mouth once a day x 3 days, then half a tablet daily x 4 more days levothyroxine 175 mcg Tablet 175 mcg PO DAILY@0600 Qty: 30 0RF cefpodoxime 200 mg tablet 400 mg PO Q12H Qty: 22 0RF Rx Instructions: must administer with a meal/food levothyroxine 175 mcg capsule 175 mcg PO DAILY Qty: 30 0RF Mucinex 1,200 mg tablet extended release 12hr 1,200 mg PO Q12H Qty: 12 0RF prednisone 5 mg tablet 5 mg PO DAILY Qty: 5 0RF aspirin 81 mg tablet,delayed release (DR/EC) 81 mg PO DAILY 0RF Label Comments: TK 1 T PO D atorvastatin 80 mg tablet 80 mg PO DAILY 0RF Label Comments: Take 1 tablet by mouth every evening Eliquis 5 mg tablet 5 mg PO BID Qty: 71 0RF Rx Instructions: Take 10 mg BID x 5 days and this afternoon. Then 5 mg BID aripiprazole 5 mg tablet 5 mg PO HS 0RF Label Comments: TAKE 1 TABLET BY MOUTH AT BEDTIME quetiapine 25 mg Tablet 50 mg PO HS Qty: 20 0RF ascorbic acid (vitamin C) [Vitamin C] 500 mg Tablet 1,000 mg PO BID Qty: 60 0RF lidocaine [Lidoderm] 1 PATCH patch 1 patch Topical Q24H Qty: 4 0RF Discharge Instructions Instructions: Head Injury (ED), Dizziness (ED), Fall Prevention (ED) Additional Instructions: Your lab work, EKG and imaging today is reassuring and shows no evidence of acute concerning or significant findings. There were white blood cells in your urine but with reassuring lab work and without fever or urinary symptoms, we will hold on treating this with antibiotics at this time. Drink plenty of fluids and get plenty of rest. Be sure to stand up slowly to prevent any further episodes of dizziness. Follow-up with your primary care doctor in 1 week. Return to the emergency department with any worsening or new concerning symptoms. Discharge Data Discharge Physician: Tiff Gould Medical Decision Making 76-year-old female with a history of COPD, CKD, hypertension, hyperlipidemia, hypothyroidism, diabetes, obesity, pulmonary embolism who presents for an episode of dizziness that occurred upon standing followed by fall with head injury. Denies LOC or vomiting. She appears comfortable and nontoxic. She has tenderness to the left parietal aspect of her head but no evidence of acute trauma. No midline spinal tenderness. Moving all extremities. Chest and abdomen nontender. No focal deficits. As the dizziness occurred upon standing, that likely orthostatic hypotension potentially leading to lightheadedness and subsequent fall. As she denies any cardiac symptoms with this episode, acute coronary syndrome, aortic dissection appears unlikely. History and presentation does not appear consistent with acute CVA, PE. Will place an IV, bolus IV fluids, screening labs, urinalysis, CT head and cervical spine and a chest x-ray and will give IV Tylenol Vitals within normal limits. EKG notes a rate of 56, sinus, no STEMI nondiagnostic. Labs and imaging reviewed and remarkable. White blood cell count normal. Normal hemoglobin. Normal electrolytes. Urinalysis notes 20-50 WBCs with small leukocyte esterase but negative nitrite, few bacteria. Patient denies any urinary symptoms, is afebrile with a normal white blood cell count, so we will hold on treating for UTI at this time. CT head and chest x-ray negative. Orthostatics obtained and negative. Patient states she feels much better and feels comfortable going home. Advised to increase fluids and to stand up slowly to acclimate her blood pressure. Advised to follow up with the primary care doctor for re-evaluation. Usual and customary return precautions given prior to discharge. Medical Records Medical records reviewed: Yes I reviewed the patient's medical records. Imaging Data Radiologic Study: Radiologist's impression: CT Head Without Contrast Exam date and time: 02/11/2022 3:10 PM Age: 76 years old Clinical indication: Injury or trauma; Concussion/head injury; Without loss of consciousness; Sprain or strain, cervical ligaments; Patient HX: S/P fall, hitparietal aspect of head, R/O FX TECHNIQUE: Imaging protocol: Computed tomography of the head without contrast. Radiation optimization: All CT scans at this facility use at least one of these dose optimization techniques: automated exposure control; mA and/or kV adjustment per patient size (includes targeted exams where dose is matched to clinical indication); or iterative reconstruction. COMPARISON: CT HEAD CERVICAL SPINE WO 01/21/2022 3:30 AM FINDINGS: Brain: There is no acute intracranial hemorrhage, mass effect or midline shift. No large acute territorial infarct identified. There are patchy regions of hypodensity in the periventricular and subcortical white matter, likely on the basis of chronic microvascular ischemic disease. Cerebral ventricles: The ventricles and sulci are prominent in size, which is at least in part due to global cerebral volume loss. Paranasal sinuses: There is mucosal thickening in the right maxillary sinus. Mastoid air cells: Visualized mastoid air cells are well aerated. Bones/joints: Unremarkable. No acute fracture. Soft tissues: Unremarkable. Dental: Periapical cysts noted at the right maxillary incisors. IMPRESSION: No acute intracranial hemorrhage, mass effect or midline shift. CT Cervical Spine Without Contrast Exam date and time: 02/11/2022 3:10 PM Age: 76 years old Clinical indication: Injury or trauma; Concussion/head injury; Without loss of consciousness; Sprain or strain, cervical ligaments; Patient HX: S/P fall, hitparietal aspect of head, R/O FX TECHNIQUE: Imaging protocol: Computed tomography images of the cervical spine without contrast. Radiation optimization: All CT scans at this facility use at least one of these dose optimization techniques: automated exposure control; mA and/or kV adjustment per patient size (includes targeted exams where dose is matched to clinical indication); or iterative reconstruction. COMPARISON: CT HEAD CERVICAL SPINE WO 01/21/2022 3:30 AM FINDINGS: Bones/joints: No acute fracture. There is grade 1 anterolisthesis of C2 on C3. Discs/Spinal canal/Neural foramina: There are multilevel degenerative changes most prominent at C3-C4 and C4-C5 with bilateral neural foraminal narrowing. No significant spinal canal stenosis. Lungs: Lung apices are normal. Soft tissues: Unremarkable. IMPRESSION: No acute fracture. Multilevel degenerative changes as described. XR Chest Exam date and time: 02/11/2022 3:28 PM Age: 76 years old Clinical indication: Other: Dizziness, R/O acute disease TECHNIQUE: Imaging protocol: XR of the chest. Views: 2 views. Total images: 3 COMPARISON: CR XR PORTABLE CHEST AP 04/20/2022 01:10 FINDINGS: Lungs: Unremarkable. No consolidation. Pleural spaces: No pleural effusion. No pneumothorax. Heart/Mediastinum: Unremarkable. No cardiomegaly. Bones/joints: No acute bone abnormality. IMPRESSION: No acute findings. Lab Data Lab results reviewed: Yes I reviewed the patient's lab results. Labs: Laboratory Tests Range/Units 02/11/22 02/11/22 02/11/22 15:15 16:45 16:45 WBC Cancelled RBC Cancelled Hgb Cancelled Hct Cancelled MCV Cancelled MCH Cancelled MCHC Cancelled RDW Cancelled Plt Count Cancelled MPV Cancelled Immature Gran % Cancelled Neutrophils % Cancelled Band Neutrophils % Cancelled Lymphocytes % Cancelled Atypical Lymphs % Cancelled Monocytes % Cancelled Eosinophils % Cancelled Basophils % Cancelled Metamyelocytes % Cancelled Myelocytes % Cancelled Promyelocytes % Cancelled Other Cells % Cancelled Nucleated RBC % Cancelled Absolute Neutrophils Cancelled Absolute Lymphocytes Cancelled Absolute Monocytes Cancelled Absolute Eosinophils Cancelled Absolute Basophils Cancelled RBC Morphology Cancelled Polychromasia Cancelled Hypochromasia Cancelled Poikilocytosis Cancelled Basophilic Stippling Cancelled Anisocytosis Cancelled Microcytosis Cancelled Macrocytosis Cancelled Spherocytes Cancelled Tear Drop Cells Cancelled Ovalocytes Cancelled Stomatocytes Cancelled [place] Bodies Cancelled [place] Cells/Echinocytes Cancelled Acanthocytes (Spur) Cancelled Schistocytes Cancelled Sodium (136-145) mmol/L 140 Potassium (3.5-5.1) mmol/L 4.9 Chloride (98-107) mmol/L 105 Carbon Dioxide (21.0-32.0) mmol/L 26.9 Anion Gap (3-11) mmol/L 8.1 BUN (7-18) mg/dL 23 H Creatinine (0.55-1.02) mg/dL 0.8 Estimated GFR/1.73 m2 (mL/min/1.73m2) >= 60.00 Glucose (74-106) mg/dL 96 Calcium (8.5-10.1) mg/dL 9.4 Magnesium (1.8-2.4) mg/dL 2.1 Total Bilirubin (0.2-1.0) mg/dL 0.8 AST (15-37) U/L 26 ALT (14-59) U/L 23 Alkaline Phosphatase (46-116) U/L 117 H Troponin I (<or=60) ng/L < 50 Total Protein (6.4-8.2) g/dL 7.2 Albumin (3.4-5.0) g/dL 3.4 Urine Color (Yellow) Yellow Urine Clarity (Clear) Sl Cloudy Urine pH (5-8) 5.5 Ur Specific [place] (1.005-1.025) 1.020 Urine Protein (Negative) mg/dL Negative Urine Ketones (Negative) mg/dL Negative Urine Blood (Negative) Negative Urine Nitrite (Negative) Negative Urine Bilirubin (Negative) Negative Urine Urobilinogen (Up TO 0.2) EU/dL 0.2 Ur Leukocyte Esterase (Negative) Small H Urine RBC (0-2) HPF Negative Urine WBC (0-5) HPF 20-50 H Ur Epithelial Cells (Negative) HPF Many Urine Crystals (Negative) HPF Negative Urine Bacteria (Negative) HPF Few Urine Casts (Negative) LPF Negative Urine Mucus (Negative) Negative Ur Culture Indicated? No/Sq. Contamination Urine Glucose (Negative) mg/dL Negative Range/Units 02/11/22 17:15 WBC 4.96 RBC 4.50 Hgb 12.9 Hct 41.9 MCV 93.1 MCH 28.7 MCHC 30.8 L RDW 15.6 H Plt Count 130 MPV 11.4 H Immature Gran % 0.2 Neutrophils % 57.0 Band Neutrophils % Lymphocytes % 32.5 Atypical Lymphs % Monocytes % 6.9 Eosinophils % 3.0 Basophils % 0.4 Metamyelocytes % Myelocytes % Promyelocytes % Other Cells % Nucleated RBC % 0 Absolute Neutrophils 2.83 Absolute Lymphocytes 1.61 Absolute Monocytes 0.34 Absolute Eosinophils 0.15 Absolute Basophils 0.02 RBC Morphology Polychromasia Hypochromasia Poikilocytosis Basophilic Stippling Anisocytosis Microcytosis Macrocytosis Spherocytes Tear Drop Cells Ovalocytes Stomatocytes [place] Bodies [place] Cells/Echinocytes Acanthocytes (Spur) Schistocytes Sodium (136-145) mmol/L Potassium (3.5-5.1) mmol/L Chloride (98-107) mmol/L Carbon Dioxide (21.0-32.0) mmol/L Anion Gap (3-11) mmol/L BUN (7-18) mg/dL Creatinine (0.55-1.02) mg/dL Estimated GFR/1.73 m2 (mL/min/1.73m2) Glucose (74-106) mg/dL Calcium (8.5-10.1) mg/dL Magnesium (1.8-2.4) mg/dL Total Bilirubin (0.2-1.0) mg/dL AST (15-37) U/L ALT (14-59) U/L Alkaline Phosphatase (46-116) U/L Troponin I (<or=60) ng/L Total Protein (6.4-8.2) g/dL Albumin (3.4-5.0) g/dL Urine Color (Yellow) Urine Clarity (Clear) Urine pH (5-8) Ur Specific [place] (1.005-1.025) Urine Protein (Negative) mg/dL Urine Ketones (Negative) mg/dL Urine Blood (Negative) Urine Nitrite (Negative) Urine Bilirubin (Negative) Urine Urobilinogen (Up TO 0.2) EU/dL Ur Leukocyte Esterase (Negative) Urine RBC (0-2) HPF Urine WBC (0-5) HPF Ur Epithelial Cells (Negative) HPF Urine Crystals (Negative) HPF Urine Bacteria (Negative) HPF Urine Casts (Negative) LPF Urine Mucus (Negative) Ur Culture Indicated? Urine Glucose (Negative) mg/dL ECG Data Attestation: I personally reviewed and interpreted this ECG (s) as follows: Interpretation: Rate of 56, sinus, no STEMI. HPI General Mode of arrival: ambulatory. Date/Time Provider Initiated Documentation: 02/11/22 14:21. Limitations to Documentation: no limitations. Information obtained by: patient. HPI Narrative: Patient is a 76-year-old female with a history of COPD, CKD, hypertension, hyperlipidemia, hypothyroidism, diabetes, pulmonary embolism who presents for fall from standing height with head injury after standing up quickly and becoming dizzy. Patient states she was sitting talking on the phone when she stood up quickly and became lightheaded and fell hitting the left backside of her head. She states she thinks she hit it on a stand or a door frame. She denies any LOC or vomiting. She does admit today but sided headache. She denies any other injuries, chest pain, shortness of breath, or palpitations prior to or during the dizziness. She states she is not taking any anticoagulation including Eliquis. Related Data Home Medications Medication Instructions Recorded Confirmed aspirin 81 mg tablet,delayed 81 mg PO DAILY 09/22/20 01/21/22 release ipratropium 0.5 mg-albuterol 3 mg 3 ml UPD Q4H PRN PRN #180 ml 10/07/20 01/21/22 (2.5 mg base)/3 mL nebulization soln pantoprazole 40 mg tablet,delayed 40 mg PO DAILY@0730 #30 tab 10/07/20 01/21/22 release acetaminophen 650 mg 650 mg PO BID 01/01/21 01/21/22 tablet,extended release (Mapap Arthritis Pain) atorvastatin 80 mg tablet 80 mg PO DAILY 06/15/21 01/21/22 apixaban 5 mg tablet (Eliquis) 5 mg PO BID #71 tab 06/16/21 01/21/22 docusate sodium 100 mg capsule 100 mg PO BID PRN PRN 08/30/21 01/21/22 fluticasone fur. 100 mcg-umeclid 1 inh INHALATION DAILY 08/30/21 01/21/22 62.5 mcg-vilant 25 mcg inhalat.powder (Trelegy Ellipta) fluticasone propionate 220 2 inh INHALATION BID 08/30/21 01/21/22 mcg/actuation HFA aerosol inhaler (Flovent HFA) aripiprazole 5 mg tablet 5 mg PO HS 10/16/21 01/21/22 ascorbic acid (vitamin C) 500 mg 1,000 mg PO BID #60 tab 10/21/21 01/21/22 tablet (Vitamin C) quetiapine 25 mg tablet 50 mg PO HS #20 tab 10/21/21 01/21/22 lidocaine 5 % topical patch 1 patch TOPICAL Q24H #4 ea 01/15/22 (Lidoderm) diazepam 5 mg tablet 5 mg PO PRN PRN 01/21/22 01/21/22 ondansetron HCl 4 mg tablet 4 mg PO PRN PRN 01/21/22 01/21/22 cholecalciferol (vitamin D3) 25 2,000 unit PO DAILY 01/24/22 01/24/22 mcg (1,000 unit) tablet cefpodoxime 200 mg tablet 400 mg PO Q12H #20 tab 01/28/22 guaifenesin 600 mg tablet, 1,200 mg PO BID #10 tab 01/28/22 extended release 12 hr (Mucinex) levothyroxine 175 mcg tablet 175 mcg PO DAILY@0600 #30 tab 01/28/22 prednisone 20 mg tablet 20 mg PO DAILY #5 tab 01/28/22 cefpodoxime 200 mg tablet 400 mg PO Q12H #22 tab 01/29/22 guaifenesin 1,200 mg tablet, 1,200 mg PO Q12H #12 tab 01/29/22 extended release 12 hr (Mucinex) levothyroxine 175 mcg capsule 175 mcg PO DAILY #30 cap 01/29/22 prednisone 5 mg tablet 5 mg PO DAILY #5 tab 01/29/22 Previous Rx's Medication Instructions Recorded ipratropium 0.5 mg-albuterol 3 mg 3 ml UPD Q4H PRN PRN #180 ml 10/07/20 (2.5 mg base)/3 mL nebulization soln pantoprazole 40 mg tablet,delayed 40 mg PO DAILY@0730 #30 tab 10/07/20 release apixaban 5 mg tablet (Eliquis) 5 mg PO BID #71 tab 06/16/21 ascorbic acid (vitamin C) 500 mg 1,000 mg PO BID #60 tab 10/21/21 tablet (Vitamin C) quetiapine 25 mg tablet 50 mg PO HS #20 tab 10/21/21 lidocaine 5 % topical patch 1 patch TOPICAL Q24H #4 ea 01/15/22 (Lidoderm) cefpodoxime 200 mg tablet 400 mg PO Q12H #20 tab 01/28/22 guaifenesin 600 mg tablet, 1,200 mg PO BID #10 tab 01/28/22 extended release 12 hr (Mucinex) levothyroxine 175 mcg tablet 175 mcg PO DAILY@0600 #30 tab 01/28/22 prednisone 20 mg tablet 20 mg PO DAILY #5 tab 01/28/22 cefpodoxime 200 mg tablet 400 mg PO Q12H #22 tab 01/29/22 guaifenesin 1,200 mg tablet, 1,200 mg PO Q12H #12 tab 01/29/22 extended release 12 hr (Mucinex) levothyroxine 175 mcg capsule 175 mcg PO DAILY #30 cap 01/29/22 prednisone 5 mg tablet 5 mg PO DAILY #5 tab 01/29/22 Allergies Allergy/AdvReac Type Severity Reaction Status Date / Time Penicillins Allergy Intermediate Swelling/Ed Verified 01/21/22 02:01 demond Bees Allergy Uncoded 01/21/22 02:01 General Stated Complaint: HeadInjury KAYA: 3 Review of Systems All systems reviewed & are unremarkable except as noted in HPI and below Constitutional Constitutional: Reports as per HPI, Denies chills, Denies excessive sweating, Denies fatigue, Denies fever(s) and Reports headache(s) Eyes Eyes: Denies blurry vision ENT Ears, Nose, Mouth, and Throat: Reports dizziness, Reports headache(s), Denies sore throat and Denies throat swelling Cardiovascular Cardiovascular: Denies chest pain and Denies dyspnea Respiratory Respiratory: Denies cough and Denies dyspnea Gastrointestinal Gastrointestinal: Denies abdominal pain, Denies diarrhea and Denies vomiting Genitourinary Genitourinary: Denies hematuria and Denies dysuria Musculoskeletal Musculoskeletal: Denies back pain and Denies numbness Integumentary/Breasts Skin/Breast: Denies lesions and Denies rash Neurologic Neurologic: Denies behavioral changes, Denies confusion, Reports dizziness, Reports headache(s), Denies localized weakness and Denies numbness Psychiatric Psychiatric: Denies behavioral changes, Denies confusion and Denies depression Endocrine Endocrine: Denies excessive sweating and Denies fatigue Hematologic/Lymphatic Hematologic/Lymphatic: Denies easy bruising and Denies lymphadenopathy Allergic/Immunologic Allergic/Immunologic: Denies throat swelling PFSH All Active Problems (Updated 02/11/22 @ 18:50 by Tiff Gould DO) Dizziness (Acute) Fall at home (Acute) Head injury (Acute) Palliative care status (Acute) Hypoxemia (Acute) Back pain (Acute) Cellulitis (Acute) Respiratory failure with hypoxia (Acute) Low back pain (Acute) Noncompliance with medication regimen (Acute) Pain, joint, knee, right (Acute) Fall (Acute) Blunt head trauma (Acute) Blunt injury of back (Acute) Fall (Acute) Contusion (Acute) Auditory hallucination (Acute) Discharge planning issues (Acute) DVT prophylaxis (Acute) Diverticulosis (Chronic) Cholelithiasis (Chronic) Nausea vomiting and diarrhea (Acute) Unsteady gait when walking (Acute) Constipation (Chronic) Memory impairment (Chronic) 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) Osteoarthritis of right knee (Chronic) Medical History Aneurysm of infrarenal abdominal aorta Chronic anticoagulation CKD (chronic kidney disease) stage 3, GFR 30-59 ml/min COPD (chronic obstructive pulmonary disease) Failure to thrive in adult Fracture of both ankles Hearing loss History of blood transfusion Hx of hyperlipidemia Hypertension Hypothyroidism Non-insulin dependent diabetes mellitus Obesity 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 Pulmonary embolism Seborrheic keratosis Smoker Surgical History History of bilateral tubal ligation History of hernia repair Family History Father Diabetes Social History Smoking/Tobacco Use Status: Current every day Tobacco Type: cigarettes Years smoked: 58 Tobacco: How many years used: 15 Counseling given: provider counseling and support medications Smoking risk assessment performed?: Yes Alcohol Intake: never Drug use: Never Substance use type: does not use Household members: none Housing: apartment Number of Children: 3 number of grandchildren: 1 What is your relationship status?: Panel score (0-1 are the most socially isolated patients): 0 What type of physical activity do you participate in: walking Seatbelt use: always Do you feel safe at home: Yes Do you feel safe in your relationship?: Yes Exam Const General: cooperative Orientation: alert, awake and oriented x3 HENMT Head: normal to inspection Head images: 1. 2 x 2 centimeter area of tenderness with mild edema. There is a 2 x 2 centimeter raised crust which appears chronic. There is no ecchymosis, erythema, open wound, bleeding or step-off. Ears: hearing grossly normal bilaterally, external ears normal and TM's normal bilaterally General nose exam: external nose normal Face and sinus: normal facial exam Mouth: oral mucosae normal Teeth and gingiva: dentition normal Throat: posterior oropharynx normal Eyes General: appearance normal, both eyes and all related structures Eyelids: eyelids normal Pupils: PERRL EOM: EOM intact bilaterally Neck Neck: normal visual inspection Lymphatic: no lymphadenopathy noted Chest Chest: normal inspection of the chest Resp Effort & Inspection: normal respiratory effort and able to speak in complete sentences Auscultation: clear to auscultation bilaterally Cardio Rate: regular rate Rhythm: regular rhythm GI Inspection: normal to inspection Palpation: soft, not firm, no guarding, no hepatosplenomegaly, no masses and nontender Auscultation: normal bowel sounds Back/Spine/Pelvis Back: no CVA tenderness Skin General skin exam: no rashes or lesions noted Neuro General: patient alert, patient awake, moves all extremities and no focal motor deficits Cranial Nerves: CN's II-XI intact bilaterally Cognition: normal cognition Speech: speech normal Gait: normal gait Motor: muscle tone normal throughout and strength 5/5 throughout Sensory Exam: no sensory deficits noted Extrem General: normal to inspection, full ROM and capillary refill normal Other: Normal range of motion of bilateral upper and lower extremities without pain or evidence of trauma. Psych Appearance: grossly normal Mental Status: mental status grossly normal Speech and Movement: speech and movement normal Affect: normal affect Thought Process: normal Course Vital Signs Vital signs: Vital Signs Temperature 96.8 F L 02/11/22 14:07 Pulse 65 02/11/22 14:07 Respiratory Rate 10 L 02/11/22 14:07 Blood Pressure 150/83 H 02/11/22 14:07 Pulse Oximetry 98 02/11/22 14:07 Temperature 96.8 F L 02/11/22 14:07 Temperature Source Skin 02/11/22 14:07 Pulse 65 02/11/22 14:07 Respiratory Rate 10 L 02/11/22 14:07 Respiratory Effort 02/11/22 14:18 Blood Pressure 150/83 H 02/11/22 14:07 Pulse Oximetry 98 02/11/22 14:07 Oxygen Delivery Method Room Air 02/11/22 14:07 Oxygen Flow Rate 0 02/11/22 14:07 Pain Level 8 02/11/22 14:07 Comment 02/11/22 14:07
--- NOTE | 2022-02-11 14:45 | DI.RAD_ITS ---
Exam(s) XR CHEST 2V PA LATERAL EXAM: XR CHEST 2V PA LATERAL CLINICAL HISTORY: dizziness, r/o acute disease TECHNIQUE: 2D digital imaging was performed. COMPARISON: CR,XR XR CHEST 2V PA LATERAL from 10/13/2021 CR,XR XR PORTABLE CHEST AP from 12/05/2021 CR,XR XR PORTABLE CHEST AP from 01/21/2022 FINDINGS: MEDIASTINUM: Normal. HEART: Normal. PULMONARY VASCULATURE: Normal. LUNGS: Increased densities at the right lower lobe could represent residual scarring in area of previ ously noted right lower lobe infiltrate. No new abnormalities. Infiltrate. PLEURAL SPACE: No pleural effusion or pneumothorax. BONE:Unremarkable for age. IMPRESSION: Mildly increased densities at the right lung base could represent residual scarring in location of pr eviously noted infiltrate. There is further clinical concern, CT could be performed. DATA REPOSITORY: RADIATION DOSE DELIVERED:
[2022-02-11 15:26] LABS: Bilirubin Negative (Negative); Blood Negative (Negative); Clarity Sl Cloudy (Clear); Glucose Negative (Negative); Ketones Negative (Negative); Leukocyte Esterase Small (Negative); Nitrite Negative (Negative); Urobilinogen 0.2 EU/dL (Up TO 0.2); pH 5.5 (5-8)
--- NOTE | 2022-02-11 15:28 | DI.CT_ITS ---
Exam(s) CT HEAD CERVICAL SPINE WO EXAM: CT HEAD CERVICAL SPINE WO CLINICAL HISTORY: hit L parietal aspect of head, r/o fx. TECHNIQUE: Imaging Protocol: Axial computed tomography images with coronal and sagittal reformatted images were created and reviewed COMPARISON: CT CT HEAD CERVICAL SPINE WO from 01/21/2022 FINDINGS: Head CT Ventricles and Extra axial spaces: Normal in size and morphology for the patient's age. Hemorrhage: None. Cerebral parenchyma: Normal. Midline shift: None. Brainstem/Cerebellum: Normal. Calvarium: Hyperostosis frontalis interna Visualized Paranasal sinuses/Mastoids: Chronic appearing deformity and mucosal thickening of the righ t maxillary sinus. Right-sided periapical cyst in maxilla related to incisor teeth. Cervical Spine CT BONES: Vertebral body heights are maintained. Alignment is normal. There is no evidence of acute frac ture. Degenerative disc changes and facet degenerative changes are seen, greatest at C3-4 and C4-5 where th ere is bilateral neural foraminal narrowing. . SOFT TISSUES: No paraspinal hematoma. The airway appears intact. No pneumothorax is seen at the lung apices. Scarring and emphysematous changes. IMPRESSION: Head CT: No acute intracranial abnormality. Right maxillary periapical cyst. C-spine CT: Degenerative changes, no acute abnormality. RADIATION DOSE DELIVERED: 1,424.27mGy.cm Total DLP DATA REPOSITORY: All CT scans at this facility are submitted to the National Radiology Data Registry (NRDR) Dose Index Registry (DIR) with the [employer] (ACR). RADIATION OPTIMIZATION: All CT scans at this facility use at least one of these dose optimization te chniques: automated exposure control; mA and/or kV adjustment per patient size (includes targeted exa ms where dose is matched to clinical indication); or iterative reconstruction.
[2022-02-11 15:40] LABS: Bacteria Few HPF (Negative); C & S Indicated? No/Sq. Contamination; Casts Negative LPF (Negative); Crystals Negative HPF (Negative); Epithelial Cells Many HPF (Negative); Mucus Negative (Negative); RBC Negative HPF (0-2); WBC 20-50 HPF (0-5)
--- NOTE | 2022-02-11 16:31 | DI.VRAD_ITS ---
PROCEDURE INFORMATION: Exam: XR Chest Exam date and time: 02/11/2022 3:28 PM Age: 76 years old Clinical indication: Other: Dizziness, R/O acute disease TECHNIQUE: Imaging protocol: XR of the chest. Views: 2 views. Total images: 3 COMPARISON: CR XR PORTABLE CHEST AP 04/20/2022 01:10 FINDINGS: Lungs: Unremarkable. No consolidation. Pleural spaces: No pleural effusion. No pneumothorax. Heart/Mediastinum: Unremarkable. No cardiomegaly. Bones/joints: No acute bone abnormality. IMPRESSION: No acute findings. Dictated and Authenticated by: Catina Garcia MD. Ordering:CYNDEE Matthew MD
--- NOTE | 2022-02-11 16:48 | DI.VRAD_ITS ---
PROCEDURE INFORMATION: Exam: CT Head Without Contrast Exam date and time: 02/11/2022 3:10 PM Age: 76 years old Clinical indication: Injury or trauma; Concussion/head injury; Without loss of consciousness; Sprain or strain, cervical ligaments; Patient HX: S/P fall, hitparietal aspect of head, R/O FX TECHNIQUE: Imaging protocol: Computed tomography of the head without contrast. Radiation optimization: All CT scans at this facility use at least one of these dose optimization techniques: automated exposure control; mA and/or kV adjustment per patient size (includes targeted exams where dose is matched to clinical indication); or iterative reconstruction. COMPARISON: CT HEAD CERVICAL SPINE WO 01/21/2022 3:30 AM FINDINGS: Brain: There is no acute intracranial hemorrhage, mass effect or midline shift. No large acute territorial infarct identified. There are patchy regions of hypodensity in the periventricular and subcortical white matter, likely on the basis of chronic microvascular ischemic disease. Cerebral ventricles: The ventricles and sulci are prominent in size, which is at least in part due to global cerebral volume loss. Paranasal sinuses: There is mucosal thickening in the right maxillary sinus. Mastoid air cells: Visualized mastoid air cells are well aerated. Bones/joints: Unremarkable. No acute fracture. Soft tissues: Unremarkable. Dental: Periapical cysts noted at the right maxillary incisors. IMPRESSION: No acute intracranial hemorrhage, mass effect or midline shift. PROCEDURE INFORMATION: Exam: CT Cervical Spine Without Contrast Exam date and time: 02/11/2022 3:10 PM Age: 76 years old Clinical indication: Injury or trauma; Concussion/head injury; Without loss of consciousness; Sprain or strain, cervical ligaments; Patient HX: S/P fall, hitparietal aspect of head, R/O FX TECHNIQUE: Imaging protocol: Computed tomography images of the cervical spine without contrast. Radiation optimization: All CT scans at this facility use at least one of these dose optimization techniques: automated exposure control; mA and/or kV adjustment per patient size (includes targeted exams where dose is matched to clinical indication); or iterative reconstruction. COMPARISON: CT HEAD CERVICAL SPINE WO 01/21/2022 3:30 AM FINDINGS: Bones/joints: No acute fracture. There is grade 1 anterolisthesis of C2 on C3. Discs/Spinal canal/Neural foramina: There are multilevel degenerative changes most prominent at C3-C4 and C4-C5 with bilateral neural foraminal narrowing. No significant spinal canal stenosis. Lungs: Lung apices are normal. Soft tissues: Unremarkable. IMPRESSION: No acute fracture. Multilevel degenerative changes as described. Dictated and Authenticated by: Nelly Clifton MD. Ordering:CYNDEE Matthew MD
[2022-02-11 17:11] LABS: ALT 23 U/L (14-59); AST 26 U/L (15-37); Albumin 3.4 g/dL (3.4-5.0); Alkaline Phosphatase 117 U/L (46-116); Anion Gap 8.1 mmol/L (3-11); BUN 23 mg/dL (7-18); Bilirubin, Total 0.8 mg/dL (0.2-1.0); CO2 26.9 mmol/L (21.0-32.0); CREATININE 0.8 mg/dL (0.55-1.02); Calcium 9.4 mg/dL (8.5-10.1); Chloride 105 mmol/L (98-107); Glucose 96 mg/dL (74-106); Magnesium 2.1 mg/dL (1.8-2.4); Potassium 4.9 mmol/L (3.5-5.1); Sodium 140 mmol/L (136-145); Total Protein 7.2 g/dL (6.4-8.2); Troponin I < 50 ng/L (<or=60)
[2022-02-11 17:22] LABS: Abs Immature Grans 0.01 10^3/uL (0.0-0.06); Absolute Basophil Count 0.02 10^3/uL (0.0-0.2); Absolute Eosinophil Count 0.15 10^3/uL (0.0-0.7); Absolute Lymphocyte Count 1.61 10^3/uL (1.2-3.4); Absolute Monocyte Count 0.34 10^3/uL (0.1-0.8); Absolute Neutrophil Count 2.83 10^3/uL (1.2-6.7); Basophils % 0.4; HCT 41.9 % (36.0-46.0); HGB 12.9 g/dL (11.2-15.7); Immature Grans % 0.2; Lymphocytes % 32.5; MCH 28.7 pg (27.0-33.0); MCHC 30.8 % (32.0-36.0); MCV 93.1 fL (80-95); MPV 11.4 fL (8.0-11.0); Monocytes % 6.9; Nucleated RBC 0 %; Platelet Count 130 10^3/uL (130-400); RDW 15.6 % (11.7-14.6); RDW-SD 54.3 fL; WBC 4.96 10^3/uL (4.4-10.8)
[2022-02-11] MEDS: Normal Saline 500 ML IV (17:29)
[2022-02-11] MEDS: ACETAMINOPHEN 1,000 MG/100 ML BTL 400 MG IVPB (17:37)
== END 2022-02-11 19:21 | disposition home or self-care (01) ==
PROVIDERS: Emergency Provider Physician Assistant; PCP Nurse Practitioner
DX: R42 Dizziness and giddiness (principal); S09.8XXA Other specified injuries of head, initial encounter; W18.39XA Other fall on same level, initial encounter
CPT/HCPCS: 80053; 93005; 96361; 96374; 99285; 70450; 71046; 72125; 81003; 81015; 83735; 84484; 85025; 93010; 99284; J0131

== ENCOUNTER 2022-02-16 12:49 | Inpatient (IN) | payer OTHER, MEDICAID, SELFPAY ==
[2022-02-16] VITALS (19 sets, daily range): BP systolic 115–156; BP diastolic 59–87; PULSE 62–86; RESP 14–20; TEMP 36–36.4; O2SAT 91–98
--- NOTE | 2022-02-16 13:00 | DI.CT_ITS ---
Exam(s) CT THORACIC LUMBAR SPINE REC CT THORAX ABD/PEL CTA EXAM: CT THORAX ABD/PEL CTA CLINICAL HISTORY: fall with back pain HX DISECTION. TECHNIQUE: Imaging Protocol: Axial CT angiography was performed with multi-slice acquisition and m ulti-planar and/or 3D reconstructions. CONTRAST MATERIAL: Intravenous: Omnipaque 350 Contrast volume:100 mL Oral: No COMPARISON: CT CT ABDOMEN PELVIS CTA from 08/29/2021 CR,XR XR CHEST 2V PA LATERAL from 02/11/[address] THORACIC LUMBAR SPINE REC from 02/16/2022 FINDINGS: CHEST: Tracheobronchial tree: Patent where visualized. There is an infiltrate in the right lower lobe. Pulmonary parenchyma: No consolidation or dominant measurable mass. Emphysematous changes in the lung s. Pulmonary Arteries: No evidence of filling defect to suggest pulmonary emboli. Mediastinum and Anna: No dominant adenopathy or fluid collection. Visualized thyroid: Unremarkable. Pleura: No effusion or pneumothorax. Heart: The heart is not dilated. Coronary artery calcification is present. No pericardial effusion. Aorta: Thoracic aorta non-dilated. No dissection. Atherosclerosis. Soft Tissues: Unremarkable. Bones: Within normal limits for the patient's age.No acute fracture or dislocation. ABDOMEN AND PELVIS: Abdomen: Celiac axis/mesenteric arteries: No evidence of occlusion or significant stenosis. Atherosclerosis. Renal Arteries: No evidence of occlusion or significant stenosis. There is a single renal artery per fusing each kidney. Atherosclerosis. Aorta: No evidence of occlusion or significant stenosis. No aneurysm or dissection. Atherosclerosi s. There has been no change in appearance of the abdominal aorta with mild narrowing again seen at a bout the L3 level. Pelvis: Iliac Arteries: No evidence of occlusion or significant stenosis. Atherosclerosis. Common Femoral Arteries: No evidence of occlusion or significant stenosis. Atherosclerosis. ABDOMEN: Liver: Normal density. No measurable mass. Gallbladder and Biliary Tract: Cholelithiasis. No biliary ductal dilatation. Pancreas: Normal density, no abnormal calcifications or inflammatory process. Spleen: Normal. Adrenals: No masses seen. Kidneys: Normal size, contour and axis. No radiodense stones or obstructive uropathy. No masses seen. Bowel: No obstruction or bowel wall thickening. No evidence of appendicitis. There is again seen an anterior abdominal wall hernia containing unremarkable loops of small and large bowel. No obstructio n is identified. Peritoneal Cavity: No ascites, collection or mesenteric inflammatory response. No free air. Lymph Nodes: Within normal limits. Bones: Within normal limits for the patient's age. No acute fracture or subluxation. Soft Tissues: Unremarkable. PELVIS: Bladder: Symmetric distention, no gross wall thickening. Reproductive Organs: Unremarkable as visualized. Lymph Nodes: Within normal limits. Bones: Within normal limits. Thoracic and lumbar spine recons: No acute fractures or subluxations are present. IMPRESSION: 1. No acute arterial injury. No evidence of a pulmonary embolism. 2. No acute abdominal or pelvic process. 3. No acute fracture or subluxation in the thoracic or lumbar spine. 4. Findings were discussed with the emergency department on the date of the examination. 5. Infiltrate in the right lower lobe which may represent pneumonia. RADIATION DOSE DELIVERED: Total DLP DATA REPOSITORY: All CT scans at this facility are submitted to the National Radiology Data Registry (NRDR) Dose Index Registry (DIR) with the [employer] (ACR). RADIATION OPTIMIZATION: All CT scans at this facility use at least one of these dose optimization te chniques: automated exposure control; mA and/or kV adjustment per patient size (includes targeted exa ms where dose is matched to clinical indication); or iterative reconstruction.
--- NOTE | 2022-02-16 13:00 | RT.EKG_ITS ---
APPROVED REPORT Exam: Resting ECG Reason for Exam: DIZZINESS Patient Location: E HR:76 bpm ECG Measurements Heart Rate 76 AXIS DC 161 P 76 QRSd 89 QRS -35 QT 404 T 62 QTc 456 Conclusion Sinus rhythm...normal P axis, V-rate 60- 99 Left axis deviation...QRS axis (-30,-90) sinus rhythm, left axis, non ischemic
--- NOTE | 2022-02-16 13:07 | W.ED.GENAD ---
Discharge Plan Disposition Patient Disposition: [facility] INPATIENT Condition: Poor Discharge Details Clinical Impression: Fall at home, Dizziness, Head injury, Ambulatory dysfunction Admit Date/Time: 02/16/22 16:17 Admit Provider: Sandeep Blanton Attending Provider: Sandeep Blanton Primary Care Provider: Kathleen Azevedo ED Provider: Kurt Thorne Discharge Data Discharge Date/Time-TO BE ENTERED AT DEPARTURE: 02/16/22 17:06 Medical Decision Making Patient presenting to the emergency department for chief complaint of fall. Patient reports becoming dizzy with position change and she fell and struck the left side of her head. Patient also states that and back pain. Patient denies any other pain or discomfort. Physical exam shows no focal neurological deficits, movement and sensation of all extremities, intact pulse, normal cardiac exam, patient does have diffuse wheezing throughout lungs and noted tenderness to upper thoracic spine and diffuse C-spine tenderness without focal pinpoint pain. Given the patient is on Eliquis and had fall we will plan on performing advanced imaging of the head, C-spine, chest abdomen pelvis. We will also perform screening labs and EKG. Please see attending physician interpretation of EKG for full interpretation but patient in sinus rhythm with no acute ischemic findings of concern. Review of labs show nondiagnostic nonworrisome CBC, CMP with slightly elevated BUN and creatinine with a little low albumin otherwise nondiagnostic. Spoke with radiologist in regards to CT imaging and on chest right lower lobe infiltrate was noted but this was also noted on recent chest x-ray. Otherwise acute findings noted on head, C-spine, abdomen pelvis or thoracic or lumbar spine. Given that this is patient's second visit since being discharged home with fall and head injury I am concerned for patient's ability to safely stay at home. I did speak with care management who is well familiar with patient and concern for wellbeing. We will plan on admission which may be observation as admission for further physical therapy consult due to ambulatory dysfunction and frequent falls. I do not feel the infiltrate in right lower lobe is new given that this is where the previous infiltrate was noted on her admission less than 1 month ago. We will discuss this though with hospitalist. 1615-spoke with Dr. Flores in regards to admission of patient for further monitoring and PT OT consult to determine patient safety at home given multiple falls since previous hospital discharge. Admission orders put in by hospitalist and patient agreeable to plan of care. Did inform patient that there was high likelihood of necessity to go to long-term nursing facility given multiple falls at home and failure to perform safe duties. Patient did not respond to me informing her of my concern of her safety at home. Medical Records Medical records reviewed: Yes I reviewed the patient's medical records. Imaging Data Radiologic Study: Imaging: CT Scan Radiologist's impression: Head and C-spine IMPRESSION: 1. No acute intracranial process. 2. No acute fracture or subluxation in the cervical spine. HPI General Mode of arrival: EMS. Date/Time Provider Initiated Documentation: 02/16/22 12:52. Limitations to Documentation: no limitations. Information obtained by: patient, EMS and old records reviewed. History of Present Illness 76 year old F presents to the emergency department with the chief complaint of Fall with head injury and back pain , described as moderate and severe, with intensity rated at 7. Quality is described as aching and sharp, and is localized to the head and neck. Patient reports no radiation. Patient started experiencing this hour(s) (1) and it has been constant. improves with No relieving factors improve symptom(s), Movement worsens symptoms . Patient notes no other symptoms.. Patient did receive the following treatments prior to arrival, none Related Data Home Medications Medication Instructions Recorded Confirmed aspirin 81 mg tablet,delayed 81 mg PO DAILY 09/22/20 02/16/22 release ipratropium 0.5 mg-albuterol 3 mg 3 ml UPD Q4H PRN PRN #180 ml 10/07/20 02/16/22 (2.5 mg base)/3 mL nebulization soln pantoprazole 40 mg tablet,delayed 40 mg PO DAILY@0730 #30 tab 10/07/20 02/16/22 release acetaminophen 650 mg 650 mg PO BID 01/01/21 02/16/22 tablet,extended release (Mapap Arthritis Pain) apixaban 5 mg tablet (Eliquis) 5 mg PO BID #71 tab 06/16/21 02/16/22 docusate sodium 100 mg capsule 100 mg PO BID PRN PRN 08/30/21 02/16/22 fluticasone propionate 220 2 inh INHALATION BID 08/30/21 02/16/22 mcg/actuation HFA aerosol inhaler (Flovent HFA) aripiprazole 5 mg tablet 5 mg PO HS 10/16/21 02/16/22 ascorbic acid (vitamin C) 500 mg 1,000 mg PO BID #60 tab 10/21/21 02/16/22 tablet (Vitamin C) quetiapine 25 mg tablet 50 mg PO HS #20 tab 10/21/21 02/16/22 lidocaine 5 % topical patch 1 patch TOPICAL Q24H #4 ea 01/15/22 (Lidoderm) diazepam 5 mg tablet 5 mg PO TID PRN PRN 01/21/22 02/16/22 ondansetron HCl 4 mg tablet 4 mg PO PRN PRN 01/21/22 02/16/22 cholecalciferol (vitamin D3) 25 2,000 unit PO DAILY 01/24/22 02/16/22 mcg (1,000 unit) tablet guaifenesin 600 mg tablet, 1,200 mg PO BID #10 tab 01/28/22 02/16/22 extended release 12 hr (Mucinex) guaifenesin 1,200 mg tablet, 1,200 mg PO Q12H #12 tab 01/29/22 02/16/22 extended release 12 hr (Mucinex) amlodipine 2.5 mg tablet 2.5 mg PO DAILY 02/16/22 02/16/22 budesonide-formoterol HFA 160 2 puff INHALATION BID 02/16/22 02/16/22 mcg-4.5 mcg/actuation aerosol inhaler (Symbicort) furosemide 20 mg tablet (Lasix) 20 mg PO DAILY 02/16/22 02/16/22 levothyroxine 175 mcg capsule 175 mcg PO DAILY 02/16/22 02/16/22 Previous Rx's Medication Instructions Recorded ipratropium 0.5 mg-albuterol 3 mg 3 ml UPD Q4H PRN PRN #180 ml 10/07/20 (2.5 mg base)/3 mL nebulization soln pantoprazole 40 mg tablet,delayed 40 mg PO DAILY@0730 #30 tab 10/07/20 release apixaban 5 mg tablet (Eliquis) 5 mg PO BID #71 tab 06/16/21 ascorbic acid (vitamin C) 500 mg 1,000 mg PO BID #60 tab 10/21/21 tablet (Vitamin C) quetiapine 25 mg tablet 50 mg PO HS #20 tab 10/21/21 lidocaine 5 % topical patch 1 patch TOPICAL Q24H #4 ea 01/15/22 (Lidoderm) guaifenesin 600 mg tablet, 1,200 mg PO BID #10 tab 01/28/22 extended release 12 hr (Mucinex) guaifenesin 1,200 mg tablet, 1,200 mg PO Q12H #12 tab 01/29/22 extended release 12 hr (Mucinex) Allergies Allergy/AdvReac Type Severity Reaction Status Date / Time Penicillins Allergy Intermediate Swelling/Ed Verified 02/16/22 13:06 demond Bees Allergy Uncoded 02/16/22 13:06 General Stated Complaint: Dizzy/Sync KAYA: 2 Review of Systems Constitutional Constitutional: Denies chills, Denies fever(s), Reports frequent falls, Reports headache(s) and Denies weakness Eyes Eyes: Denies change in vision ENT Ears, Nose, Mouth, and Throat: Reports headache(s) and Reports neck pain Cardiovascular Cardiovascular: Denies chest pain, Reports syncope, Denies irregular heart rhythm and Denies dyspnea Respiratory Respiratory: Denies dyspnea Gastrointestinal Gastrointestinal: Denies abdominal pain and Denies vomiting Musculoskeletal Musculoskeletal: Reports as per HPI, Reports back pain and Reports neck pain Neurologic Neurologic: Reports as per HPI, Reports syncope, Reports frequent falls, Reports headache(s), Denies paresthesias and Denies weakness PFSH All Active Problems (Updated 02/18/22 @ 20:44 by Sandeep Blanton) Prerenal azotemia (Acute) Fall at home (Acute) Head injury (Acute) Ambulatory dysfunction (Acute) Palliative care status (Acute) Hypoxemia (Acute) Cellulitis (Acute) Respiratory failure with hypoxia (Acute) Low back pain (Acute) Noncompliance with medication regimen (Acute) Pain, joint, knee, right (Acute) Fall (Acute) Blunt head trauma (Acute) Blunt injury of back (Acute) Fall (Acute) Contusion (Acute) Auditory hallucination (Acute) Discharge planning issues (Acute) DVT prophylaxis (Acute) Diverticulosis (Chronic) Cholelithiasis (Chronic) Nausea vomiting and diarrhea (Acute) Unsteady gait when walking (Acute) Constipation (Chronic) Memory impairment (Chronic) 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) Osteoarthritis of right knee (Chronic) Medical History Aneurysm of infrarenal abdominal aorta Chronic anticoagulation CKD (chronic kidney disease) stage 3, GFR 30-59 ml/min COPD (chronic obstructive pulmonary disease) COPD (chronic obstructive pulmonary disease) Failure to thrive in adult Fracture of both ankles Hallucinations Hearing loss History of blood transfusion Hx of hyperlipidemia Hypertension Hypothyroidism Non-insulin dependent diabetes mellitus Obesity 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 Pulmonary embolism Seborrheic keratosis Smoker Surgical History History of bilateral tubal ligation History of hernia repair Family History Father Diabetes Social History Smoking/Tobacco Use Status: Current every day Tobacco Type: cigarettes Years smoked: 58 Tobacco: How many years used: 15 Counseling given: provider counseling and support medications Smoking risk assessment performed?: Yes Alcohol Intake: never Drug use: Never Substance use type: does not use Household members: none Housing: apartment Number of Children: 3 number of grandchildren: 1 What is your relationship status?: Panel score (0-1 are the most socially isolated patients): 0 What type of physical activity do you participate in: walking Seatbelt use: always Do you feel safe at home: Yes Do you feel safe in your relationship?: Yes Exam Const General: cooperative and no acute distress Orientation: alert and awake [facility] Head: normocephalic, abrasion left occipital 0.39 in, no Bustamante's sign, no raccoon eyes, no temporal artery tenderness and No periorbital ecchymosis Ears: external ears normal and TM's normal bilaterally General nose exam: external nose normal Face and sinus: normal facial exam Mouth: oral mucosae normal and moist mucous membranes Eyes Visual Delatorre: normal visual delatorre by confrontation Alignment and Position: alignment normal Periorbital: periorbital findings normal Eyelids: eyelids normal Sclera: sclerae normal Pupils: PERRL EOM: EOM intact bilaterally Neck Neck: normal visual inspection Resp Effort & Inspection: normal respiratory effort and able to speak in complete sentences Auscultation: wheezes expiratory wheezes, scattered wheezes and right lower (Inspiratory and expiratory) Cardio Rate: regular rate Rhythm: regular rhythm Heart Sounds: S1 normal and S2 normal GI Inspection: normal to inspection Palpation: soft, not firm, no guarding, not rigid and nontender Auscultation: hypoactive bowel sounds Back/Spine/Pelvis Cervical Spine: normal cervical lordosis, pain with cervical ROM, cervical spinal tenderness (diffuse ) and No step off deformity Thoracic/Lumbar Spine: thoracic and lumbar spine normal to inspection, No paraspinal tenderness, thoracic spinal tenderness (upper t-spine tenderness) and No lumbar spinal tenderness Pelvis: no pain with anterior-posterior compression and no pain with lateral compression Neuro General: patient alert, patient awake, oriented Patient Orientation: Person and Place, moves all extremities and CN's II-XI intact bilaterally Motor: no movement abnormalities noted Sensory Exam: no sensory deficits noted Course Vital Signs Vital signs: Vital Signs Temperature 36 C L 02/16/22 12:52 Pulse 86 02/16/22 12:52 Respiratory Rate 16 02/16/22 12:52 Blood Pressure 124/59 L 02/16/22 12:52 Pulse Oximetry 96 02/16/22 12:52 Temperature 36 C L 02/16/22 12:52 Temperature Source Skin 02/16/22 12:52 Pulse 86 02/16/22 12:52 Respiratory Rate 16 02/16/22 12:52 Respiratory Effort 02/16/22 12:52 Blood Pressure 124/59 L 02/16/22 12:52 Blood Pressure Position Supine 02/16/22 12:52 Pulse Oximetry 96 02/16/22 12:52 Oxygen Delivery Method Room Air 02/16/22 12:52 Oxygen Flow Rate 0 02/16/22 12:52 Pain Level 7 02/16/22 12:52
[2022-02-16 13:42] LABS: Abs Immature Grans 0.02 10^3/uL (0.0-0.06); Absolute Basophil Count 0.02 10^3/uL (0.0-0.2); Absolute Eosinophil Count 0.14 10^3/uL (0.0-0.7); Absolute Lymphocyte Count 1.38 10^3/uL (1.2-3.4); Absolute Monocyte Count 0.36 10^3/uL (0.1-0.8); Absolute Neutrophil Count 3.62 10^3/uL (1.2-6.7); Basophils % 0.4; Eosinophils % 2.5; HCT 40.3 % (36.0-46.0); HGB 12.4 g/dL (11.2-15.7); Immature Grans % 0.4; Lymphocytes % 24.9; MCH 28.6 pg (27.0-33.0); MCHC 30.8 % (32.0-36.0); MCV 93.1 fL (80-95); MPV 11.1 fL (8.0-11.0); Monocytes % 6.5; Neutrophils % 65.3; Nucleated RBC 0 %; Platelet Count 143 10^3/uL (130-400); RBC 4.33 10^6/uL (3.93-5.22); RDW 15.7 % (11.7-14.6); RDW-SD 54.7 fL; WBC 5.54 10^3/uL (4.4-10.8)
[2022-02-16] MEDS: Normal Saline 1,000 ML 150 ML IV (13:43)
[2022-02-16] MEDS: MORPHine 10 MG/ML VIAL 2 MG IVP ×2 (13:49→15:19)
[2022-02-16 14:02] LABS: ALT 27 U/L (14-59); AST 23 U/L (15-37); Albumin 3.2 g/dL (3.4-5.0); Alkaline Phosphatase 112 U/L (46-116); Anion Gap 5.5 mmol/L (3-11); BUN 20 mg/dL (7-18); Bilirubin, Total 0.5 mg/dL (0.2-1.0); CO2 31.5 mmol/L (21.0-32.0); CREATININE 1.1 mg/dL (0.55-1.02); Calcium 9.1 mg/dL (8.5-10.1); Chloride 103 mmol/L (98-107); Estimated GFR 48.55 (mL/min/1.73m2); Glucose 91 mg/dL (74-106); Magnesium 2.1 mg/dL (1.8-2.4); Potassium 3.8 mmol/L (3.5-5.1); Sodium 140 mmol/L (136-145); Total Protein 6.9 g/dL (6.4-8.2); Troponin I < 50 ng/L (<or=60)
[2022-02-16] MEDS: Omnipaque 350 MG/ML 100 ML BTL IV (14:04)
--- NOTE | 2022-02-16 14:17 | DI.CT_ITS ---
Exam(s) CT HEAD CERVICAL SPINE WO EXAM: CT HEAD CERVICAL SPINE WO CLINICAL HISTORY: fall on Eliquis. TECHNIQUE: Imaging Protocol: Axial computed tomography images with coronal and sagittal reformatted images were created and reviewed COMPARISON: CT CT HEAD CERVICAL SPINE WO from 02/11/2022 FINDINGS: CT Head: Ventricles and Extra axial spaces: Normal in size and morphology for the patient's age. Hemorrhage: None. Cerebral parenchyma: Age-related small vessel ischemic disease. No acute territorial infarct. Midline shift: None. Brainstem/Cerebellum: Normal. Calvarium: Normal. Visualized Paranasal sinuses/Mastoids: Findings of chronic sinusitis in the right maxillary sinus. N o fluid levels. Soft Tissues: Unremarkable. CT Cervical Spine: Bones: No acute fracture or subluxation. Degenerative changes are present. Soft Tissues: Unremarkable. Lung Apices: Emphysematous changes are seen in the lung apices. IMPRESSION: 1. No acute intracranial process. 2. No acute fracture or subluxation in the cervical spine. RADIATION DOSE DELIVERED: 1,273.62mGy.cm Total DLP DATA REPOSITORY: All CT scans at this facility are submitted to the National Radiology Data Registry (NRDR) Dose Index Registry (DIR) with the [employer] (ACR). RADIATION OPTIMIZATION: All CT scans at this facility use at least one of these dose optimization te chniques: automated exposure control; mA and/or kV adjustment per patient size (includes targeted exa ms where dose is matched to clinical indication); or iterative reconstruction.
[2022-02-16 16:24] LABS: Source Nasal/Nares
--- NOTE | 2022-02-16 16:28 | W.PM.HP.N ---
Date of service: 02/16/22 Time of Service: 16:28 Assessment and Plan Assessment and plan (1) Dizziness: Status: Acute Assessment and plan: Possible secondary to mild dehydration and prerenal azotemia. Patient may be overmedicated at home. We will withhold her Lasix for now continue gentle IV fluid hydration overnight repeat her labs in the morning. Monitor orthostatic vitals every 12 hours. (2) Fall at home: Status: Acute Assessment and plan: No history of loss of consciousness. Will monitor her overnight including her rhythm. will ask P.T. and O.T. to evaluate her ambulatory status and strength and to assess for fall safety particularly in regard to safety w/ going home (3) Head injury: Status: Acute Assessment and plan: closed head injury with no evidence of acute intracranial injury. 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 we should look into whether or not her PE was provoked and how long ago her PE occurred and whether this was her first episode or a repeat episode. (4) Ambulatory dysfunction: Status: Acute Assessment and plan: We will request PT and OT evaluation as noted above. Patient may require SNF placement although the patient is reluctant to go to a SNF. However we cannot continue readmitting her just because she is failing at home. (5) Palliative care status: Status: Acute Assessment and plan: We will request a palliative care consultation to assist the patient with determining goals of care and proper setting for her care. (6) Hypertension: Assessment and plan: Blood pressure here appears to be stable however we will monitor orthostatic blood pressures. I will withhold her furosemide for now may need to withhold her amlodipine as well. (7) Hypothyroidism: Assessment and plan: Her last TSH was elevated at 36 that was as of 01/21/2022. Previous value was 17.25. Patient is supposed to be on levothyroxine 175 mcg daily. I am not sure she is taking it correctly. I will increase her dose to 200 mcg daily. Qualifiers: Hypothyroidism type: acquired Qualified Code(s): E03.9 - Hypothyroidism, unspecified (8) Non-insulin dependent diabetes mellitus: Assessment and plan: Not currently on any antidiabetic medications at home. We will just monitor blood sugars twice daily and check a glycohemoglobin A1c in the morning. (9) COPD (chronic obstructive pulmonary disease): Assessment and plan: No evidence of acute exacerbation. We will keep her on her scheduled dose of Symbicort along with as needed DuoNeb treatments. Qualifiers: COPD type: emphysema Emphysema type: centrilobular Qualified Code(s): J43.2 - Centrilobular emphysema (10) Chronic anticoagulation: Assessment and plan: Continue apixaban for now while we review the circumstances of her PE. (11) Smoker: Assessment and plan: Will apply nicotine patch. (12) Pulmonary embolism: Assessment and plan: Continue Eliquis for now while we reviewed the circumstances of her pulmonary embolism. Qualifiers: Pulmonary embolism type: multiple subsegmental (without acute cor pulmonale) Qualified Code(s): I26.94 - Multiple subsegmental pulmonary emboli without acute cor pulmonale History of Present Illness History of Present Illness Chief Complaint: recurrent falls Narrative: This 76-year-old smoker with a history of COPD, type 2 diabetes mellitus, pulmonary embolism chronically anticoagulated with Eliquis, essential hypertension, hypothyroidism, chronic back pain, previous COVID-19 infection September 2021 but now currently vaccinated presented to the emergency department today for the second time within the past week because of complaints of dizziness and falls. She was evaluated treated and discharged from the emergency department on 02/11/2022. She had a work-up at that time including routine labs CT scan of the head and C-spine that showed no acute intracranial process and no spinal injury. She was given some IV fluids and discharged home and told to increase her oral fluids. Routine labs showed some white cells in her urine but no UTI rest her labs are unremarkable EKG showed no acute ischemic event. She then represented today to the emergency department with another episode of a fall. She reportedly become dizzy with change of position fell and struck the left side of her head without loss of consciousness. Was complaining of back pain. Physical exam showed no focal neurologic deficits. But was noted to have some tenderness in the upper thoracic spine and cervical spine. She underwent CT imaging head cervical spine thoracic lumbar spine as well as chest abdomen pelvis. CT of the head showed no acute intracranial process no acute fracture or subluxation of cervical spine. CT of the thoracic and lumbar spine as well as chest abdomen pelvis demonstrated no acute arterial injury no evidence of pulmonary embolism and no acute abdominal or pelvic process process. She had no acute fracture or subluxation in the thoracic or lumbar spine. She has a persistent infiltrate in the right lower lobe for which the radiologist is suggesting possible pneumonia. Patient has emphysematous changes and her lungs. Laboratory evaluation includes CBC that did not show any leukocytosis no anemia. CMP was remarkable for some mild dehydration with a BUN of 20 creatinine 1.1 normal LFTs normal troponin level. Urinalysis was not repeated. Because the patient lives alone and the ER personnel were concerned about her safety and discharging her home they recommend that she be admitted for observation status. hotel manager was consulted and the plan is to admit her on observation status and monitor blood pressure and pulse and monitor for orthostatic changes and obtain a physical therapy and Occupational Therapy evaluation in the morning regarding fall safety protocol to see if she can be safely discharged home with can continued home health services versus a need for SNF placement. At present time patient is disinclined to go to a SNF. She says she thinks that she can go along just fine at home and minimizes any impact that her frequent falls is having on her ability to perform her ADLs. Review of Systems All systems reviewed & are unremarkable except as noted in HPI and below PFSH All Active Problems (Updated 02/16/22 @ 19:51 by Sandeep Blanton) Prerenal azotemia (Acute) Dizziness (Acute) Fall at home (Acute) Head injury (Acute) Ambulatory dysfunction (Acute) Palliative care status (Acute) Hypoxemia (Acute) Cellulitis (Acute) Respiratory failure with hypoxia (Acute) Low back pain (Acute) Noncompliance with medication regimen (Acute) Pain, joint, knee, right (Acute) Fall (Acute) Blunt head trauma (Acute) Blunt injury of back (Acute) Fall (Acute) Contusion (Acute) Auditory hallucination (Acute) Discharge planning issues (Acute) DVT prophylaxis (Acute) Diverticulosis (Chronic) Cholelithiasis (Chronic) Nausea vomiting and diarrhea (Acute) Unsteady gait when walking (Acute) Constipation (Chronic) Memory impairment (Chronic) 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) Osteoarthritis of right knee (Chronic) Medical History Aneurysm of infrarenal abdominal aorta Chronic anticoagulation CKD (chronic kidney disease) stage 3, GFR 30-59 ml/min COPD (chronic obstructive pulmonary disease) COPD (chronic obstructive pulmonary disease) Failure to thrive in adult Fracture of both ankles Hallucinations Hearing loss History of blood transfusion Hx of hyperlipidemia Hypertension Hypothyroidism Non-insulin dependent diabetes mellitus Obesity 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 Pulmonary embolism Seborrheic keratosis Smoker Surgical History History of bilateral tubal ligation History of hernia repair Family History Father Diabetes Social History Smoking/Tobacco Use Status: Current every day Tobacco Type: cigarettes Years smoked: 58 Tobacco: How many years used: 15 Counseling given: provider counseling and support medications Smoking risk assessment performed?: Yes Alcohol Intake: never Drug use: Never Substance use type: does not use Household members: none Housing: apartment Number of Children: 3 number of grandchildren: 1 What is your relationship status?: Panel score (0-1 are the most socially isolated patients): 0 What type of physical activity do you participate in: walking Seatbelt use: always Do you feel safe at home: Yes Do you feel safe in your relationship?: Yes Meds Allergies and Home Medications Allergies Allergy/AdvReac Type Severity Reaction Status Date / Time Penicillins Allergy Intermediate Swelling/Ed Verified 02/16/22 13:06 demond Bees Allergy Uncoded 02/16/22 13:06 Home Medications Medication Instructions Recorded Confirmed Type aspirin 81 mg tablet,delayed 81 mg PO DAILY 09/22/20 02/16/22 History release ipratropium 0.5 mg-albuterol 3 mg 3 ml UPD Q4H PRN PRN #180 ml 10/07/20 02/16/22 Rx (2.5 mg base)/3 mL nebulization soln pantoprazole 40 mg tablet,delayed 40 mg PO DAILY@0730 #30 tab 10/07/20 02/16/22 Rx release acetaminophen 650 mg 650 mg PO BID 01/01/21 02/16/22 History tablet,extended release (Mapap Arthritis Pain) apixaban 5 mg tablet (Eliquis) 5 mg PO BID #71 tab 06/16/21 02/16/22 Rx docusate sodium 100 mg capsule 100 mg PO BID PRN PRN 08/30/21 02/16/22 History fluticasone propionate 220 2 inh INHALATION BID 08/30/21 02/16/22 History mcg/actuation HFA aerosol inhaler (Flovent HFA) aripiprazole 5 mg tablet 5 mg PO HS 10/16/21 02/16/22 History ascorbic acid (vitamin C) 500 mg 1,000 mg PO BID #60 tab 10/21/21 02/16/22 Rx tablet (Vitamin C) quetiapine 25 mg tablet 50 mg PO HS #20 tab 10/21/21 02/16/22 Rx lidocaine 5 % topical patch 1 patch TOPICAL Q24H #4 ea 01/15/22 Rx (Lidoderm) diazepam 5 mg tablet 5 mg PO TID PRN PRN 01/21/22 02/16/22 History ondansetron HCl 4 mg tablet 4 mg PO PRN PRN 01/21/22 02/16/22 History cholecalciferol (vitamin D3) 25 2,000 unit PO DAILY 01/24/22 02/16/22 History mcg (1,000 unit) tablet guaifenesin 600 mg tablet, 1,200 mg PO BID #10 tab 01/28/22 02/16/22 Rx extended release 12 hr (Mucinex) guaifenesin 1,200 mg tablet, 1,200 mg PO Q12H #12 tab 01/29/22 02/16/22 Rx extended release 12 hr (Mucinex) amlodipine 2.5 mg tablet 2.5 mg PO DAILY 02/16/22 02/16/22 History budesonide-formoterol HFA 160 2 puff INHALATION BID 02/16/22 02/16/22 History mcg-4.5 mcg/actuation aerosol inhaler (Symbicort) furosemide 20 mg tablet (Lasix) 20 mg PO DAILY 02/16/22 02/16/22 History levothyroxine 175 mcg capsule 175 mcg PO DAILY 02/16/22 02/16/22 History Exam Narrative Exam Narrative: Morbidly obese elderly female sitting up in her bed semifowler position. She is alert and oriented person place time and circumstance. She denies any acute complaints. She states she just fell and does not feel that she needs to be in the hospital. HEENT is remarkable for she wears glasses. Pupils are equally round reactive to light accommodation extraocular motion intact no scleral icterus. Oropharynx noninjected no exudate teeth are in fair repair. She has normal movement of her palate and her tongue speech is clear and coherent. No facial asymmetry. Normal facial mimetic muscle movement. Neck is supple no JVD normal carotid pulses Lungs are clear to auscultation anteriorly and posteriorly no rhonchi or wheezing Heart is regular without appreciable murmur rub Abdomen is obese soft nontender nondistended normal bowel sounds Lower extremities no peripheral edema. Pedal pulses intact. Upper extremities she has a couple small bruises over the right forearm. 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 There is a little bit of crepitus with abduction of her right shoulder but no significant pain or tenderness with abduction or internal or external rotation of the shoulder. Range of motion of both lower extremities is within normal limits. No pain with flexion-extension at the knee or dorsiflexion or plantarflexion of the ankles. Sensory exam grossly intact to light touch in both upper lower extremities. She has normal stereognosis with finger writing of numbers and letters on the palm of her hand. Results Imaging CT scan - chest: report reviewed CT scan - pelvis: report reviewed EKG: image reviewed (Sinus rhythm rate 76 bpm, left axis deviation, no acute ischemic ST or T wave changes) Labs Result diagrams: 02/16/22 13:30 02/16/22 13:30 Labs: Laboratory Results - last 24 hr 02/16/22 02/16/22 02/16/22 13:30 13:30 16:19 WBC 5.54 RBC 4.33 Hgb 12.4 Hct 40.3 MCV 93.1 MCH 28.6 MCHC 30.8 L RDW 15.7 H Plt Count 143 MPV 11.1 H Immature Gran % 0.4 Neutrophils % 65.3 Lymphocytes % 24.9 Monocytes % 6.5 Eosinophils % 2.5 Basophils % 0.4 Nucleated RBC % 0 Absolute Neutrophils 3.62 Absolute Lymphocytes 1.38 Absolute Monocytes 0.36 Absolute Eosinophils 0.14 Absolute Basophils 0.02 Sodium 140 Potassium 3.8 Chloride 103 Carbon Dioxide 31.5 Anion Gap 5.5 BUN 20 H Creatinine 1.1 H Estimated GFR/1.73 m2 48.55 Glucose 91 Calcium 9.1 Magnesium 2.1 Total Bilirubin 0.5 AST 23 ALT 27 Alkaline Phosphatase 112 Troponin I < 50 Total Protein 6.9 Albumin 3.2 L COVID-19 Source Nasal/Nares Last Vital Signs Temp 36 C L 02/16/22 12:52 Pulse 80 02/16/22 13:01 Resp 16 02/16/22 15:10 BP 137/60 02/16/22 13:01 Pulse Ox 95 02/16/22 15:10
[2022-02-16 17:04] LABS: COVID-19 PCR Negative (Negative)
[2022-02-16] MEDS: Lidocaine 5% Patch 1 PATCH TP (18:34)
[2022-02-16] MEDS: Ascorbic Acid 500 MG TAB 1000 MG PO (19:58)
[2022-02-16] MEDS: Budesonide/Formoterol 160/4.5 6 GM 60 PUFF INH IH (19:58)
[2022-02-16] MEDS: guaiFENesin 600 MG TABCR PO (19:59)
[2022-02-16] MEDS: Apixaban 5 MG TAB PO (19:59)
[2022-02-16] MEDS: ARIPiprazole 5 MG TAB PO (21:30)
[2022-02-16] MEDS: QUEtiapine 25 MG TAB 50 MG PO (21:31)
[2022-02-16] MEDS: Lactated Ringers 1,000 ML 80 ML IV (21:37)
[2022-02-16 22:13] LABS: Bilirubin Negative (Negative); Blood Negative (Negative); Clarity Clear (Clear); Glucose Negative (Negative); Ketones Negative (Negative); Leukocyte Esterase Negative (Negative); Nitrite Negative (Negative); Urobilinogen 0.2 EU/dL (Up TO 0.2)
[2022-02-17] VITALS (9 sets, daily range): BP systolic 102–146; BP diastolic 57–79; PULSE 60–85; RESP 16–19; TEMP 36.2–36.8; O2SAT 90–94
[2022-02-17] MEDS: Levothyroxine 100 MCG TAB 200 MCG PO (05:49)
[2022-02-17 07:10] LABS: Hemoglobin A1C 6.8 % (<5.7)
[2022-02-17 07:15] LABS: BUN 19 mg/dL (7-18); Calcium 9.3 mg/dL (8.5-10.1); Chloride 104 mmol/L (98-107); Glucose 92 mg/dL (74-106); Sodium 139 mmol/L (136-145)
[2022-02-17 07:31] LABS: TSH (W/Ref FT4) 45.57 uIU/mL (0.36-3.74)
[2022-02-17 07:52] LABS: FREE T4 0.73 ng/dL (0.76-1.46)
[2022-02-17] MEDS: Pantoprazole 40 MG TABCR PO (07:53)
[2022-02-17] MEDS: Ascorbic Acid 500 MG TAB 1000 MG PO ×2 (07:53→22:07)
[2022-02-17] MEDS: Cholecalciferol (Vitamin D3) 1,000 UNIT TAB 2000 UNITS PO (07:53)
[2022-02-17] MEDS: Acetaminophen 325 MG TAB PO (07:53)
[2022-02-17] MEDS: guaiFENesin 600 MG TABCR PO ×2 (07:53→22:07)
[2022-02-17] MEDS: Aspirin E.C. 81 MG TABEC PO (07:53)
[2022-02-17] MEDS: amLODIPine 2.5 MG TAB PO (07:53)
[2022-02-17] MEDS: Apixaban 5 MG TAB PO ×2 (07:53→22:07)
[2022-02-17] MEDS: Budesonide/Formoterol 160/4.5 6 GM 60 PUFF INH IH ×2 (07:54→22:14)
--- NOTE | 2022-02-17 08:02 | PT.INTREAT ---
Date of service: 02/17/22 Time of Service: 08:00 PT Notes Visit Reasons: falls, deconditioning, ambulatory dyfunction Inpatient Physical Therapy Evaluation Date: February 17, 2022 Referring Doctor: Dr. Sandeep Blanton PT Orders: PT CONSULT: Fall safety assessment Precautions: Standard, fall precautions Patient Profile/Admitting Diagnosis: Patient is a 76-year-old female admitted to [facility]. February secondary to fall at home. She was had a prior stay at [facility] from [facility] 2021 when she was admitted secondary to pneumonia and falls. Than another ED visit on February 11 secondary to dizziness. Most recently she presented to the emergency department for chief complaint of fall.? Patient reports becoming dizzy with position change and she fell and struck the left side of her head.? At time of intake, patient also states that and back pain.? Patient denies any other pain or discomfort.?She is a 76-year-old smoker with a history of COPD, type 2 diabetes mellitus, pulmonary embolism chronically anticoagulated with Eliquis, essential hypertension, hypothyroidism, chronic back pain, previous COVID-19 infection September 2021 but now currently vaccinated presented to the emergency department today for the second time within the past week because of complaints of dizziness and falls.? She was evaluated treated and discharged from the emergency department on 02/11/2022.? PFSH All Active Problems?(Updated 02/16/22 @ 19:51 by Sandeep Blanton) Prerenal azotemia (Acute) Dizziness (Acute) Fall at home (Acute) Head injury (Acute) Ambulatory dysfunction (Acute) Palliative care status (Acute) Hypoxemia (Acute) Cellulitis (Acute) Respiratory failure with hypoxia (Acute) Low back pain (Acute) Noncompliance with medication regimen (Acute) Pain, joint, knee, right (Acute) Fall (Acute) Blunt head trauma (Acute) Blunt injury of back (Acute) Fall (Acute) Contusion (Acute) Auditory hallucination (Acute) Discharge planning issues (Acute) DVT prophylaxis (Acute) Diverticulosis (Chronic) Cholelithiasis (Chronic) Nausea vomiting and diarrhea (Acute) Unsteady gait when walking (Acute) Constipation (Chronic) Memory impairment (Chronic) 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 History of bilateral tubal ligation History of hernia repair Social History/Home Situation: Lives alone on the first floor of an apartment building, one step to enter. Independent with all mobility of ADLs with single point cane.? Receives meals on wheels for her lunch, able to prepare own breakfast and supper.? Independent with bathing and dressing. Fabiola does not have a life line in place. Equipment Owned/DME: [facility] Subjective:? Fabiola is alert and agreeable to PT consult this morning. Declines pain. No complaints of headache or dizziness. Objective:? General Observation: Patient up sitting in bed having just finished breakfast. Mental Status: Alert and oriented x3 Pain: Fabiola continually says ow? throughout evaluation however upon asking if she is in pain declines. Does complain of a bum right shoulder. Vital Signs: BP 117/51 mmHg; O2 saturation 93% on room air ROM: Right Upper Extremity: ? Shoulder Flexion limited to 90 degrees AA 100 degrees. Shoulder abduction 90 degrees. ER limited to neutral at side.Elbow flexion WFL. Wrist flexion WFL. Functional opening and closing of hand WFL. Left Upper Extremity:? Shoulder Flexion WFL. Shoulder abduction WFL.ER 20 degrees Elbow flexion WFL. Wrist flexion WFL. Functional opening and closing of hand WFL. Right Lower Extremity: Hip flexion 100 degrees while seated on chair. Hip abduction WFL. Knee flexion WFL. Ankle dorsiflexion to neutral only. Ankle plantarflexion WFL. Left Lower Extremity: Hip [id number] degrees while seated on chair. Hip abduction WFL. Knee flexion WFL. Ankle dorsiflexion to neutral only. Ankle plantarflexion WFL. Strength: Right Upper Extremity: Shoulder flexors 3+/5. Shoulder abductors 3+/5. Elbow flexors 4+/5. Elbow extensors 4/5. Gallery Host strong. Left Upper Extremity: Shoulder flexors 4/5. Shoulder abductors 4/5. Elbow flexors 5/5. Elbow extensors 5/5. Gallery Host strong. Right Lower Extremity: Hip flexors 4/5. Hip abductors 4-/5. Knee flexors 4+/5. Knee extensors 4/5. Ankle dorsiflexors 4/5. Ankle plantarflexors 4-/5. Left Lower Extremity: Hip flexors 4/5. Hip abductors 4-/5. Knee flexors 4+/5. Knee extensors 4/5. Ankle dorsiflexors 4/5. Ankle plantarflexors 4-/5. Bed Mobility/Transfers: Supine to sit: Min assist Sit to stand: Min assist off toilet. SBA from bedside. Stand to sit: SBA Bed to chair: Min assist X1 for supine to sit bedside. Gait: Patient ambulated 20 feet from bed to bathroom with contact-guard and use of single-point cane. No loss of balance. Decreased stride length and widened base of support. Transition from stand to sit on toilet standby assist. Min assist sit to stand from toilet. She then ambulated 15 feet from bathroom to bedside recliner standby assist with single-point cane. Was able to transition stand to sit in recliner standby assist. Balance: Static Sitting: Normal Dynamic Sitting: Normal Static Standing: Fair Dynamic Standing: Fair Special Tests: Mobility Limitations Standardized Measure [facility] 6 clicks Basic Mobility Inpatient Short Form: 17 Raw Score: ?42.13 ? ? ? CMS Score: 50.57% Informed Consent/Education:??Patient was instructed in purpose of PT consult and plan of care. Agreeable to proceed with established PT POC to achieve personal goals. Assessment:???Patient is a 76 year old female referred to physical therapy services with the diagnosis of dizziness, COPD, s/p fall. Given her recurrent falls do not feel patient is safe to return home at this time. May benefit from placement in [facility] to address the following impairments and functional limitations. She presents with clinical signs and symptoms consistent with current/admitting diagnoses that have resulted to mobility limitations, gait instability, generalized weakness, and overall ADL decline as demonstrated by the following impairment level findings: 1.? Decreased strength to B UE/LE major muscle groups 2.? Impaired standing balance 3.? Impaired activity tolerance 4. Shortness of breath Impairments are contributing to the following functional limitations: 1.? Difficulty with ambulation without assistive device and physical assistance 2.? Increased completion time for mobility ADL performance 3.? Increased risk for falls 4.? Difficulty with managing steps alone safely Patient is assessed as a [id number] moderate complexity based on the following: History: 76-year-old female with past medical history as indicated above Examination: Demonstrable impairment in strength, balance, and mobility level with underlying impairments and functional limitations as exhibited above as well as deficit score of 50.57% utilizing the [facility] Mobility Inpatient Short Form Presentation: Evolving Decision Makin moderate complexity Goals: Goals X1 week 1. Supine-Sit Independent 2. Sit-Supine Independent 3. Sit-Stand Independent 4. Stand-Sit Independent 5. Bed-Chair Independent 6. Chair-Bed Independent 7. Gait Independent with least restrictive assistive device as needed 100 ft or greater with 8. Stairs up/down 1 step to enter apartment 9. Balance: Improved standing balance to good Plan of Care/Treatment Plan: 1-2x/day, 7 days/week x 1 week. Plan of care has been reviewed with the CONFIGURATION SPECIALIST providing the service under Physical Therapy direction. Initiate Physical Therapy intervention for strengthening, bed mobility, transfers, gait, stairs, balance training, use of assistive device. DISCHARGE RECOMMENDATIONS:? residential facility.? Patient will benefit from [facility] services in order to progress mobility level using least restrictive assistive ambulatory device, identify additional equipment needs, and establish a functional maintenance program in hopes to return home. DISCHARGE RECOMMENDATIONS: [] Home with no services [] [] Home with services [specify] [] Home with outpatient PT [] X SNF for continued rehabilitation [] Letter Stamping Machine Operator Care [] [] SNF versus LTC based on ability to participate and progress [] TREATMENT CODE/TIME: 85639, IE, X20 minutes 8:40-9:10am Matthew Cota PT, DPT [facility] Disclaimer: This note was created using [employer] voice recognition software. It was reviewed for major content. However, there may be multiple small discrepancies and errors due to the voice recognition aspects of the software.
--- NOTE | 2022-02-17 10:44 | PDOC.CMIN ---
- If Service Date Differs Date of service: 02/17/22 Time of Service: 10:44 Care Management Initial Assess REASON FOR HOSPITALIZATION:: weakness, falls PAST MEDICAL HISTORY/PAST SURGICAL HISTORY:: All Active Problems (Updated 02/16/22 @ 19:51 by Sandeep Blanton). Prerenal azotemia (Acute). Dizziness (Acute). Fall at home (Acute). Head injury (Acute). Ambulatory dysfunction (Acute). Palliative care status (Acute). Hypoxemia (Acute). Cellulitis (Acute). Respiratory failure with hypoxia (Acute). Low back pain (Acute). Noncompliance with medication regimen (Acute). Pain, joint, knee, right (Acute). Fall (Acute). Blunt head trauma (Acute). Blunt injury of back (Acute). Fall (Acute). Contusion (Acute). Auditory hallucination (Acute). Discharge planning issues (Acute). DVT prophylaxis (Acute). Diverticulosis (Chronic). Cholelithiasis (Chronic). Nausea vomiting and diarrhea (Acute). Unsteady gait when walking (Acute). Constipation (Chronic). Memory impairment (Chronic). 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 Osteoarthritis of right knee (Chronic). Medical History. Aneurysm of infrarenal abdominal aorta. Chronic anticoagulation. CKD (chronic kidney disease) stage 3, GFR 30-59 ml/min. COPD (chronic obstructive pulmonary disease). COPD (chronic obstructive pulmonary disease). Failure to thrive in adult. Fracture of both ankles. Hallucinations. Hearing loss. History of blood transfusion. Hx of hyperlipidemia. Hypertension. Hypothyroidism. Non-insulin dependent diabetes mellitus. Obesity. 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. Pulmonary embolism. Seborrheic keratosis. Smoker. Surgical History . History of bilateral tubal ligation. History of hernia repair PREVIOUS FUNCTIONAL STATUS/SOCIAL/FAMILY SUPPORTS:: Fabiola lives alone in an apartment in [facility]. She has three sons but 2 of them live out of state. Fabiola reportedly has several friends who live locally who are supportive of her. She uses [facility] for transportation, has a cane and and is independent with her ADL's at baseline. CURRENT FUNCTIONAL STATUS:: Fabiola was sitting up in a chair when CM met with her. She appeared to be in good spirits and engaged well with CM, known to her from previous admissions. Fabiola stated that she is feeling really good today, better than usual. She had a PT eval this mornming and, once again, short term rehab was recommended. Fabiola initially told the provider that she did not want to go to rehab, however she informed CM that she would be willing to go. if a bed can be found. CM will send referrals. Fabiola enjoys word searches so CM provided her with several puzzle books which she appreciaited. ADVANCE DIRECTIVES:: none on file Has patient been provided with info about the portal/API?: Yes Did the patient sign up for the portal?: No CODE STATUS:: Full Code INSURANCE COVERAGE / FINANCIAL ISSUES:: [employer] and Medicaid CURRENT HOME/COMMUNITY SERVICES/EQUIPMENT:: Uses a cane. receives MOW. uses [facility] for transport. 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 On her last admission referrals were sent to several facilities but no bed offfers were received. CM will send referrals again, however they will likely not be reviewed until Saturday.CM will continue to support Fabiola and her discharge concerns.
--- NOTE | 2022-02-17 17:29 | W.PM.PROGNOT ---
Date of Service Date of service: 02/17/22 Time of Service: 17:29 Assessment and Plan Assessment and plan (1) Dizziness: Status: Acute Assessment and plan: no orthostatic hypotension. no further dizziness. possible from mild dehydration (2) Fall at home: Status: Acute Assessment and plan: P.T. evaluation completed. See their evaluation and recommendations. Patient ambulated under her own power w/ SPC and SBA but did not lose her balance. She is insisting on returning home. I convinced her to remain thru today until tomorrow for more P.T. work but if she refuses to go to SNF then I will have to dc her tomorrow. (3) Head injury: Status: Acute Assessment and plan: closed head injury with no evidence of acute intracranial injury. 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 we should look into whether or not her PE was provoked and how long ago her PE occurred and whether this was her first episode or a repeat episode. (4) Ambulatory dysfunction: Status: Acute Assessment and plan: as above (5) Palliative care status: Status: Acute Assessment and plan: We will request a palliative care consultation to assist the patient with determining goals of care and proper setting for her care. (6) Hypertension: Assessment and plan: Blood pressure here appears to be stable however we will monitor orthostatic blood pressures. I will withhold her furosemide for now may need to withhold her amlodipine as well. (7) Hypothyroidism: Assessment and plan: Her last TSH was elevated at 36 that was as of 01/21/2022. Previous value was 17.25. Patient is supposed to be on levothyroxine 175 mcg daily. I am not sure she is taking it correctly. I will increase her dose to 200 mcg daily. Qualifiers: Hypothyroidism type: acquired Qualified Code(s): E03.9 - Hypothyroidism, unspecified (8) Non-insulin dependent diabetes mellitus: Assessment and plan: Not currently on any antidiabetic medications at home. We will just monitor blood sugars twice daily and check a glycohemoglobin A1c in the morning. (9) COPD (chronic obstructive pulmonary disease): Assessment and plan: No evidence of acute exacerbation. We will keep her on her scheduled dose of Symbicort along with as needed DuoNeb treatments. Qualifiers: COPD type: emphysema Emphysema type: centrilobular Qualified Code(s): J43.2 - Centrilobular emphysema (10) Chronic anticoagulation: Assessment and plan: Continue apixaban for now while we review the circumstances of her PE. (11) Smoker: Assessment and plan: Will apply nicotine patch. (12) Pulmonary embolism: Assessment and plan: Continue Eliquis for now while we reviewed the circumstances of her pulmonary embolism. Qualifiers: Pulmonary embolism type: multiple subsegmental (without acute cor pulmonale) Qualified Code(s): I26.94 - Multiple subsegmental pulmonary emboli without acute cor pulmonale Subjective Subjective Interval history since last seen: Patient has no acute complaints. back is still somewhat sore but she did not mention it until I inquired. She still does not want to go to SNF even though this is what P.T. is recommending SNF to improve her mobility, gait, balance and strength. She did walk 15 to 20 ft w/ SPC w/out loss of balance Exam Narrative Exam Narrative: Elderly female sitting up in her bed, no acute distress Lungs: CTA Heart: RRR Abd: soft, nontender, normal b.s. Extremities: no edema or pain nor joint deformities. Back: some lower thoracic and upper lumbar paraspinal muscle tenderness. Objective Last Vital Signs Temp 36.6 C 02/17/22 15:31 Pulse 80 02/17/22 15:31 Resp 18 02/17/22 15:31 BP 146/79 H 02/17/22 15:31 Pulse Ox 94 02/17/22 15:31 Laboratory Results - last 24 hr 02/16/22 02/17/22 02/17/22 21:58 06:30 06:30 Sodium 139 Potassium 4.0 Chloride 104 Carbon Dioxide 28.0 Anion Gap 7.0 BUN 19 H Creatinine 1.0 Estimated GFR/1.73 m2 54.20 Glucose 92 Hemoglobin A1c Calcium 9.3 TSH 45.57 H Free T4 0.73 L Urine Color Yellow Urine Clarity Clear Urine pH 6.0 Ur Specific [place] 1.010 Urine Protein Negative Urine Ketones Negative Urine Blood Negative Urine Nitrite Negative Urine Bilirubin Negative Urine Urobilinogen 0.2 Ur Leukocyte Esterase Negative Urine Glucose Negative 02/17/22 06:30 Sodium Potassium Chloride Carbon Dioxide Anion Gap BUN Creatinine Estimated GFR/1.73 m2 Glucose Hemoglobin A1c 6.8 H Calcium TSH Free T4 Urine Color Urine Clarity Urine pH Ur Specific [place] Urine Protein Urine Ketones Urine Blood Urine Nitrite Urine Bilirubin Urine Urobilinogen Ur Leukocyte Esterase Urine Glucose
[2022-02-17] MEDS: Lidocaine 5% Patch 1 PATCH TP (18:40)
[2022-02-17] MEDS: QUEtiapine 25 MG TAB 50 MG PO (22:07)
[2022-02-17] MEDS: ARIPiprazole 5 MG TAB PO (22:07)
[2022-02-17] MEDS: Lactated Ringers 1,000 ML 80 ML IV (22:08)
[2022-02-18] VITALS (7 sets, daily range): BP systolic 119–127; BP diastolic 74–80; PULSE 73–84; RESP 17–18; TEMP 36.2–36.7; O2SAT 92–96
[2022-02-18] MEDS: Levothyroxine 100 MCG TAB 200 MCG PO (06:25)
[2022-02-18] MEDS: Pantoprazole 40 MG TABCR PO (08:05)
[2022-02-18] MEDS: Ascorbic Acid 500 MG TAB 1000 MG PO ×2 (08:05→19:53)
[2022-02-18] MEDS: amLODIPine 2.5 MG TAB PO (08:05)
[2022-02-18] MEDS: Aspirin E.C. 81 MG TABEC PO (08:05)
[2022-02-18] MEDS: Apixaban 5 MG TAB PO ×2 (08:05→19:53)
[2022-02-18] MEDS: guaiFENesin 600 MG TABCR PO ×2 (08:05→19:53)
[2022-02-18] MEDS: Budesonide/Formoterol 160/4.5 6 GM 60 PUFF INH IH ×2 (08:05→19:53)
[2022-02-18] MEDS: Cholecalciferol (Vitamin D3) 1,000 UNIT TAB 2000 UNITS PO (08:06)
--- NOTE | 2022-02-18 11:36 | PT.INTREAT ---
PT Notes Visit Reasons: falls, deconditioning, ambulatory dyfunction Inpatient Physical Therapy Treatment Note [facility] Date: 02/18/22 OBJECTIVE: Sit-stand: CGA/SBA Stand-sit: SBA GAIT Assistive Device: SPC Weight bearing: FULL Assist: SBA Distance: Chair to door and back x2 with 1 seated rest. THEREX: Pt completed UE and LE strengthening ther ex as per flow sheet. ASSESSMENT: Pt tolerated today's session fairly well. Pt did seem to fatigue quickly. PLAN: Cont as per PT POC. TREATMENT CODE/TIME: 11-11:20 TA (20)
--- NOTE | 2022-02-18 11:39 | W.PM.PROGNOT ---
Date of Service Date of service: 02/18/22 Time of Service: 11:40 Assessment and Plan Assessment and plan (1) Dizziness: Status: Resolved Assessment and plan: no orthostatic hypotension. no further dizziness. possible from mild dehydration (2) Fall at home: Status: Acute Assessment and plan: P.T. evaluation completed. See their evaluation and recommendations. Patient ambulated under her own power w/ SPC and SBA but did not lose her balance. Patient now willing to go to SNF. CM has put out referrals. (3) Head injury: Status: Acute Assessment and plan: closed head injury with no evidence of acute intracranial injury. I am concerned about her being on eliquis half-way. we should look into whether or not her PE was provoked and how long ago her PE occurred and whether this was her first episode or a repeat episode. (4) Ambulatory dysfunction: Status: Acute Assessment and plan: as above (5) Palliative care status: Status: Acute Assessment and plan: We will request a palliative care consultation to assist the patient with determining goals of care and proper setting for her care. (6) Hypertension: Assessment and plan: Blood pressure here appears to be stable however we will monitor orthostatic blood pressures. given that she is complaining of dyspnea w/ exertion it may be time now to resume her furosemide now that her volume status has been corrected. (7) Hypothyroidism: Assessment and plan: Her last TSH was elevated at 36 that was as of 01/21/2022. Previous value was 17.25. Patient is supposed to be on levothyroxine 175 mcg daily. I am not sure she is taking it correctly. I will increase her dose to 200 mcg daily. Qualifiers: Hypothyroidism type: acquired Qualified Code(s): E03.9 - Hypothyroidism, unspecified (8) Non-insulin dependent diabetes mellitus: Assessment and plan: Not currently on any antidiabetic medications at home. We will just monitor blood sugars twice daily and check a glycohemoglobin A1c in the morning. (9) COPD (chronic obstructive pulmonary disease): Assessment and plan: No evidence of acute exacerbation. We will keep her on her scheduled dose of Symbicort along with as needed DuoNeb treatments. Qualifiers: COPD type: emphysema Emphysema type: centrilobular Qualified Code(s): J43.2 - Centrilobular emphysema (10) Chronic anticoagulation: Assessment and plan: Continue apixaban for now while we review the circumstances of her PE. (11) Smoker: Assessment and plan: Will apply nicotine patch. (12) Pulmonary embolism: Assessment and plan: Continue Eliquis for now while we reviewed the circumstances of her pulmonary embolism. Qualifiers: Pulmonary embolism type: multiple subsegmental (without acute cor pulmonale) Qualified Code(s): I26.94 - Multiple subsegmental pulmonary emboli without acute cor pulmonale Subjective Subjective Interval history since last seen: Patient complains of dyspnea with activity however she is really not walk around more than from her chair to the bathroom. She is not requiring supplemental oxygen. Still has back pain for which I have added Robaxin and Voltaren gel. Patient is now saying she is willing to go to a nursing home facility Case management is put out referrals. Exam Narrative Exam Narrative: Elderly female sitting up in her bed, no acute distress Lungs: CTA Heart: RRR Abd: soft, nontender, normal b.s. Extremities: no edema or pain nor joint deformities. Back: some lower thoracic and upper lumbar paraspinal muscle tenderness. Objective Last Vital Signs Temp 36.7 C 02/18/22 09:22 Pulse 80 02/18/22 09:22 Resp 18 02/18/22 09:22 BP 127/80 02/18/22 09:22 Pulse Ox 92 02/18/22 09:22
[2022-02-18] MEDS: Diclofenac 1% Gel 100 GM TUBE TP ×2 (13:42→16:53)
[2022-02-18 16:28] LABS: T3,Free 2.4 pg/mL (2.8-5.3)
[2022-02-18] MEDS: Lidocaine 5% Patch 1 PATCH TP (18:27)
[2022-02-18] MEDS: ARIPiprazole 5 MG TAB PO (22:13)
[2022-02-18] MEDS: QUEtiapine 25 MG TAB 50 MG PO (22:13)
[2022-02-19] VITALS (8 sets, daily range): BP systolic 117–122; BP diastolic 64–80; PULSE 60–88; RESP 16–18; TEMP 36–36.6; O2SAT 91–98
[2022-02-19] MEDS: Levothyroxine 100 MCG TAB 200 MCG PO (05:51)
[2022-02-19 07:13] LABS: Anion Gap 7.5 mmol/L (3-11); BUN 25 mg/dL (7-18); CO2 28.5 mmol/L (21.0-32.0); CREATININE 1.3 mg/dL (0.55-1.02); Calcium 8.9 mg/dL (8.5-10.1); Chloride 106 mmol/L (98-107); Estimated GFR 40.04 (mL/min/1.73m2); Glucose 107 mg/dL (74-106); Magnesium 2.1 mg/dL (1.8-2.4); NT-proBNP 124 pg/mL (<300); Sodium 142 mmol/L (136-145)
[2022-02-19] MEDS: Budesonide/Formoterol 160/4.5 6 GM 60 PUFF INH IH ×2 (07:29→21:33)
[2022-02-19] MEDS: Diclofenac 1% Gel 100 GM TUBE TP ×4 (07:41→21:33)
[2022-02-19] MEDS: Pantoprazole 40 MG TABCR PO (07:42)
[2022-02-19] MEDS: Ascorbic Acid 500 MG TAB 1000 MG PO ×2 (07:42→21:32)
[2022-02-19] MEDS: Aspirin E.C. 81 MG TABEC PO (07:42)
[2022-02-19] MEDS: Potassium Chloride 20 MEQ TABCR PO (07:42)
[2022-02-19] MEDS: Cholecalciferol (Vitamin D3) 1,000 UNIT TAB 2000 UNITS PO (07:42)
[2022-02-19] MEDS: guaiFENesin 600 MG TABCR PO ×2 (07:43→21:32)
[2022-02-19] MEDS: Furosemide 20 MG TAB PO (07:43)
[2022-02-19] MEDS: amLODIPine 2.5 MG TAB PO (07:43)
[2022-02-19] MEDS: Apixaban 5 MG TAB PO ×2 (07:43→21:32)
--- NOTE | 2022-02-19 09:39 | OT.INIE ---
Occupational Therapy Notes Inpatient Occupational Therapy Evaluation Date: 02/19/22 Referring Doctor:Sandeep Blanton MD OT Orders: Non -Urgent Precautions: Fall, standard, Full PATIENT PROFILE/ADMITTING DIAGNOSIS: Pt is a 76 year old female who was admitted through the ED with preenal azotemia, dizziness, fall at home, head injury, ambulatory dysfunction, palliative care status. Pt states that she fell at her home and was able to reach her phone. When EMS arrived they told her she was going to be going to the ED. She was admitted through the ED to Med Surg. Past Medical History: All Active Problems?(Updated 02/16/22 @ 19:51 by Sandeep Blanton) Prerenal azotemia (Acute) Dizziness (Acute) Fall at home (Acute) Head injury (Acute) Ambulatory dysfunction (Acute) Palliative care status (Acute) Hypoxemia (Acute) Cellulitis (Acute) Respiratory failure with hypoxia (Acute) Low back pain (Acute) Noncompliance with medication regimen (Acute) Pain, joint, knee, right (Acute) Fall (Acute) Blunt head trauma (Acute) Blunt injury of back (Acute) Fall (Acute) Contusion (Acute) Auditory hallucination (Acute) Discharge planning issues (Acute) DVT prophylaxis (Acute) Diverticulosis (Chronic) Cholelithiasis (Chronic) Nausea vomiting and diarrhea (Acute) Unsteady gait when walking (Acute) Constipation (Chronic) Memory impairment (Chronic) 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 History of bilateral tubal ligation History of hernia repair Social History/Home Situation: Pt states that she lives alone in an apartment in [facility] which she states that she lives [place] the [place] from [facility]. She does not drive and states that she utilizes [facility] and meals on wheels. She states that she has a shower seat for her walk in shower but reports she has no issues with dressing or bathing. She is able to perform her socks and shoes. She states that there are two ways to enter in her home one way with a small step and one with 4 steps. She states that she typically utilizes the 1 way step. Equipment owned/DME: cane, FWW, shower seat, grab bars SUBJECTIVE:??Pt was sitting in chair when OT arrived and is agreeable to consult and states, she is not sure she needs OT that she is at her baseline level of function. OBJECTIVE:? General Observation: Pleasant and agreeable to session. Mental Status: A&Ox3 ROM: RUE AROM WFL L UE AROM WFL STRENGTH: RUE shoulder flexion 4-/5, otherwise 5/5 throughout LUE 5/5 throughout FUNCTIONAL MOBILITY/ADLS:? Transfers with cane Sit-Stand (S) Stand-sit (S) Bed-Chair (S) BATHING Pt is already washed up when OT arrives. She is able to demonstrate functional (I) and AROM required for performance. DRESSING Dressing LE sitting on side of the bed (I) donning (B) socks with idea technique and leg mobility for performance. TOILETING (I) on toilet and toileting hygiene EATING sitting in chair- (I) with cup and hand placement, opening containers. BALANCE: Static sitting normal Dynamic Sitting normal Static Standing normal Dynamic Standing normal SPECIAL TESTS:? Daily Activity Limitations Standardized Measure [facility] ? AM -PAC ? ?6 clicks? Daily Activity Inpatient Short Form: Raw score: 23 ? Standardized score: 51.12? CMS score: 15.86% ? INFORMED CONSENT/EDUCATION: Pt instructed in purpose of OT Consult and plan of care. ASSESSMENT:?? Patient is a? 76-year-old female referred to occupational therapy services with diagnosis of preenal azotemia, dizziness, fall at home, head injury, ambulatory dysfunction, palliative care status. Patient presents with clinical signs and symptoms consistent with dx. OT went to see pt for OT consult and pt is demonstrating what she feels is her baseline level of function in terms of her ADL/IADL routines. She states that it is more her functional mobility that presents her with difficulty at this time. Patient is assessed as a? Low 39021? complexity based on the following: History: see above Examination: see functional limitations as noted above Presentation: evolving Decision Making: AMPAC score 23 GOALS N/A PLAN OF CARE/TREATMENT PLAN: Discharge from skilled OT services. DISCHARGE RECOMMENDATIONS OT recommends that due to pts fall risk that pt go to SNF when medically cleared per MD. TREATMENT TIME/MINUTES/CODES 28227, 15 minutes (09:25) Kamila Lua OTR/L [facility]
--- NOTE | 2022-02-19 10:29 | PT.INTREAT ---
Date of service: 02/19/22 Time of Service: 10:08 PT Notes Visit Reasons: falls, deconditioning, ambulatory dyfunction Inpatient Physical Therapy Treatment Note [facility] Date: 02/19/2022 PRECAUTIONS: Fall, activity as tolerated SUBJECTIVE: Fabiola is pleasant and agreeable to participating in PT. She states that she is feeling slightly unsteady today, but reports that she was managing well at home up until her fall. She reports that she does not know what caused her to fall at home. OBJECTIVE: PAIN: No c/o pain BED MOBILITY/TRANSFERS Sit-stand: S in a.m. I in p.m. Stand-sit: S in a.m.; I in p.m. GAIT Assistive Device: SPC Weight bearing: Full Assist: S Distance: 120' in a.m.; 200' in p.m. Deviation: Increased fatigue VITALS: Session completed in collaboration with RT, see their note for specific vital sign details. THEREX: Patient was instructed in a LE strengthening program, completed in a seated position, as per flow sheet. TOILETING: Patient toileted independently ASSESSMENT: Patient tolerated session with complaint of increased fatigue gait training. She tolerated a progression in gait distance with SPC support, requiring supervision only. She demonstrates steady gait and pacing. PLAN: Continue with gait training and general strengthening for improved mobility to decrease fall risk. Recommend home with PT at this time. TREATMENT CODE/TIME: Session 1: 14 minutes; 28604 (10:08) Session 2: 12 minutes; 43240 (14:38)
--- NOTE | 2022-02-19 11:13 | PDOC.CMPRO ---
- If Service Date Differs Date of service: 02/19/22 Time of Service: 11:13 Care Management Progress Note S/O:Fabiola was lying in bed when CM met with her. She stated that she was really tired and wanted to take a nap. She explained that she did not sleep much at all last night but could not say why. Today referrals were sent to 11 long-term facilities in [place]. Hopefully Fabiola will receive a bed offer soon. She continues to work with PT for gait training and general strengthening. A:Fabiola is a 76 year old woman admitted on 02/16/22 with ambulatory dysfunction P:Fabiola would likely benefit from short term rehab in a SNF prior to returning home. CM will send referrals as requested by Fabiola. CM will continue to support Fabiola and her discharge concerns.
--- NOTE | 2022-02-19 13:56 | PGE_ITS ---
Date of Service Date of service: 02/19/22 Time of Service: 13:57 Assessment and Plan Assessment and plan (1) Fall at home: Status: Acute Assessment and plan: P.T. evaluation completed. See their evaluation and recommendations. Patient ambulated under her own power w/ SPC and SBA but did not lose her balance. Patient now willing to go to SNF. has put out referrals. Patient ambulated with single-point cane 120 feet today. (2) Head injury: Status: Acute Assessment and plan: closed head injury with no evidence of acute intracranial injury. I am concerned about her being on [facility]. we should look into whether or not her PE was provoked and how long ago her PE occurred and whether this was her first episode or a repeat episode. (3) Ambulatory dysfunction: Status: Acute Assessment and plan: as above (4) Palliative care status: Status: Acute Assessment and plan: We will request a palliative care consultation to assist the patient with determining goals of care and proper setting for her care. (5) Hypertension: Assessment and plan: Blood pressure here appears to be stable however we will monitor orthostatic blood pressures. given that she is complaining of dyspnea w/ exertion it may be time now to resume her furosemide now that her volume status has been corrected. (6) Hypothyroidism: Assessment and plan: Her last TSH was elevated at 36 that was as of 01/21/2022. Previous value was 17.25. Patient is supposed to be on levothyroxine 175 mcg daily. I am not sure she is taking it correctly. I will increase her dose to 200 mcg daily. Qualifiers: Hypothyroidism type: acquired Qualified Code(s): E03.9 - Hypothyroidism, unspecified (7) Non-insulin dependent diabetes mellitus: Assessment and plan: Not currently on any antidiabetic medications at home. We will just monitor blood sugars twice daily and check a glycohemoglobin A1c in the morning. (8) COPD (chronic obstructive pulmonary disease): Assessment and plan: No evidence of acute exacerbation. We will keep her on her scheduled dose of Symbicort along with as needed DuoNeb treatments. Qualifiers: COPD type: emphysema Emphysema type: centrilobular Qualified Code(s): J43.2 - Centrilobular emphysema (9) Chronic anticoagulation: Assessment and plan: Continue apixaban for now while we review the circumstances of her PE. (10) Smoker: Assessment and plan: Will apply nicotine patch. (11) Pulmonary embolism: Assessment and plan: History of pulmonary embolism. Continue Eliquis for now while we reviewed the circumstances of her pulmonary embolism. Qualifiers: Pulmonary embolism type: multiple subsegmental (without acute cor pul monale) Qualified Code(s): I26.94 - Multiple subsegmental pulmonary emboli without acute cor pulmonale (12) Prerenal azotemia: Status: Acute Assessment and plan: I have decreased the frequency of her Lasix and potassium to every other day to avoid recurrent prerenal azotemia and dehydration which led to her dizziness. (13) Discharge planning issues: Status: Acute Assessment and plan: Case management has placed referrals to area [facility] facilities for placement. I will change her from observation status to acute inpatient status as the patient will need continued nursing care pending transfer. Furthermore I am adjusting her diuretics daily as well as monitoring her electrolytes and BUN and creatinine daily. Subjective Subjective Interval history since last seen: Fabiola still has complaints of back pain. Initially when I entered her room she was watching TV having no complaints not making any moaning sounds but when I mentioned her back that she started making moaning sounds. She states that she did not walk for therapy today. This is in contradistinction to physical therapy's documentation which she walked 120 feet with a single-point cane. Exam Narrative Exam Narrative: I have is sitting up in her chair watching TV and as I stated above she was not having any complaints or moaning when I walked in the room as soon as I start asking her about her back she started making moaning sounds. Her back is kyphotic there is no deformities of the spine but she complains of diffuse tenderness wherever I touch her over her thoracic or lumbar area. Objective Last Vital Signs Temp 36.1 C L 02/19/22 07:57 Pulse 82 02/19/22 11:15 Resp 18 02/19/22 07:57 BP 117/64 02/19/22 07:57 Pulse Ox 94 02/19/22 07:57 Laboratory Results - last 24 hr 02/17/22 02/19/22 06:30 06:20 Sodium 142 Potassium 4.0 Chloride 106 Carbon Dioxide 28.5 Anion Gap 7.5 BUN 25 H Creatinine 1.3 H Estimated GFR/1.73 m2 40.04 Glucose 107 H Calcium 8.9 Magnesium 2.1 NT-Pro-B Natriuret Pep 124 Free T3 pg/mL 2.4 L Reviewed Pertinent PMH: Yes Objective Narrative Objective Narrative: Labs reviewed and it appears that her BUN and creatinine are climbing at 25 and 1.3.
[2022-02-19] MEDS: Acetaminophen 500 MG TAB 1000 MG PO ×2 (15:06→21:32)
[2022-02-19] MEDS: Methocarbamol 750 MG TAB PO ×2 (15:06→21:33)
--- NOTE | 2022-02-19 18:15 | W.PALLCONSUL ---
Date of service: 02/19/22 Time of Service: 15:00 History of Present Illness Narrative: Ms. Hicks is a 76 y/o F currently inpatient at [facility] 2/2 dizziness and falls at home; PMHx sig for?smoker, COPD, type 2 diabetes mellitus, pulmonary embolism (chronically anticoagulated with Eliquis), essential hypertension, hypothyroidism, cholelithiasis, diverticulosis, chronic back pain; this is [place]?s 12th visit to [facility] ED/inpatient since May 2021 Pt reports back pain since fall at home, controlled w/topical and meds here in hospital; denies any acute changes in sensation or function; no appetite changes; sleeping okay; pt aware of discharge plan of care includes SNF for continued PT to improve strength and independence; pt agreeable to SNF w/goal of returning home; willing to follow up outpatient, afternoons preference, aware that phone would not accept call for scheduling apt; Interval hx since 01/22/22 [facility] consult: previous hospitalization 01/21/22 ? 01/28/22 r/t PNA; presented to [facility] ED 02/11 s/p fall w/head strike and dizziness, work-up neg, d/c?d home; presented to [facility] ED 02/16 s/p fall and head strike, admitted inpatient for dizziness w/suspected orthostatic involvement, observation, and PT eval; PT eval recommends SNF to progress mobility level for continued rehab Assessment and Plan Assessment and plan (1) Dizziness: Status: Resolved (2) Fall at home: Status: Acute (3) Low back pain: Status: Acute (4) Unsteady gait when walking: Status: Acute (5) Palliative care status: Status: Acute Assessment and plan: [facility] attempted to schedule outpatient after last d/c, phone does not accept unknown callers; will schedule for Saturday after discharge, afternoon apt; pt agrees; visit will occur in home or SNF pending discharge; continue to follow; continue w/PT/OT pending discharge transfer to SNF, pt agreeable at this time; will need [facility] upon discharge home PRN CM have blast out to all SNFs for bed availability Review of Systems Constitutional Constitutional: Reports as per HPI (pt defers full ROS review) PFSH All Active Problems Prerenal azotemia (Acute) Fall at home (Acute) Head injury (Acute) Ambulatory dysfunction (Acute) Palliative care status (Acute) Hypoxemia (Acute) Cellulitis (Acute) Respiratory failure with hypoxia (Acute) Low back pain (Acute) Noncompliance with medication regimen (Acute) Pain, joint, knee, right (Acute) Fall (Acute) Blunt head trauma (Acute) Blunt injury of back (Acute) Fall (Acute) Contusion (Acute) Auditory hallucination (Acute) Discharge planning issues (Acute) DVT prophylaxis (Acute) Diverticulosis (Chronic) Cholelithiasis (Chronic) Nausea vomiting and diarrhea (Acute) Unsteady gait when walking (Acute) Constipation (Chronic) Memory impairment (Chronic) 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) Osteoarthritis of right knee (Chronic) Medical History Aneurysm of infrarenal abdominal aorta Chronic anticoagulation CKD (chronic kidney disease) stage 3, GFR 30-59 ml/min COPD (chronic obstructive pulmonary disease) COPD (chronic obstructive pulmonary disease) Failure to thrive in adult Fracture of both ankles Hallucinations Hearing loss History of blood transfusion Hx of hyperlipidemia Hypertension Hypothyroidism Non-insulin dependent diabetes mellitus Obesity 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 Pulmonary embolism Seborrheic keratosis Smoker Surgical History History of bilateral tubal ligation History of hernia repair Family History Father Diabetes Social History Smoking/Tobacco Use Status: Current every day Tobacco Type: cigarettes Years smoked: 58 Tobacco: How many years used: 15 Counseling given: provider counseling and support medications Smoking risk assessment performed?: Yes Alcohol Intake: never Drug use: Never Substance use type: does not use Household members: none Housing: apartment Number of Children: 3 number of grandchildren: 1 What is your relationship status?: Panel score (0-1 are the most socially isolated patients): 0 What type of physical activity do you participate in: walking Seatbelt use: always Do you feel safe at home: Yes Do you feel safe in your relationship?: Yes Exam Narrative Exam Narrative: pt sitting comfortably in chair at time of visit; requests shortened visit w/plan for f/u; defers full physical exam today Const General: cooperative, comfortable and no acute distress Nutritional Appearance: overweight HENNJ Head: normocephalic and atraumatic Ears: hearing grossly normal bilaterally Resp Effort & Inspection: normal respiratory effort, able to speak in complete sentences, no audible wheezes and no cough Skin General skin exam: no rashes or lesions noted Psych Appearance: grossly normal Mental Status: mental status grossly normal Speech and Movement: speech clear Insight: limited Judgment: fair Results Last Vital Signs Temp 96.8 F L 02/19/22 14:31 Pulse 78 02/19/22 14:31 Resp 18 02/19/22 14:31 BP 118/68 02/19/22 14:31 Pulse Ox 94 02/19/22 14:31 Labs Result diagrams: 02/16/22 13:30 02/19/22 06:20 Labs: Laboratory Results - last 24 hr 02/17/22 02/19/22 06:30 06:20 Sodium 142 Potassium 4.0 Chloride 106 Carbon Dioxide 28.5 Anion Gap 7.5 BUN 25 H Creatinine 1.3 H Estimated GFR/1.73 m2 40.04 Glucose 107 H Calcium 8.9 Magnesium 2.1 NT-Pro-B Natriuret Pep 124 Free T3 pg/mL 2.4 L
[2022-02-19] MEDS: Lidocaine 5% Patch 1 PATCH TP (18:41)
[2022-02-19] MEDS: QUEtiapine 25 MG TAB 50 MG PO (21:33)
[2022-02-19] MEDS: ARIPiprazole 5 MG TAB PO (21:33)
[2022-02-20] MEDS: Levothyroxine 100 MCG TAB 200 MCG PO (06:03)
[2022-02-20 06:29] LABS: Anion Gap 6.3 mmol/L (3-11); BUN 25 mg/dL (7-18); CO2 27.7 mmol/L (21.0-32.0); CREATININE 1.1 mg/dL (0.55-1.02); Chloride 106 mmol/L (98-107); Estimated GFR 48.55 (mL/min/1.73m2); Glucose 104 mg/dL (74-106); Potassium 4.1 mmol/L (3.5-5.1); Sodium 140 mmol/L (136-145)
[2022-02-20] MEDS: Budesonide/Formoterol 160/4.5 6 GM 60 PUFF INH IH ×2 (07:23→21:18)
[2022-02-20] MEDS: Cholecalciferol (Vitamin D3) 1,000 UNIT TAB 2000 UNITS PO (08:25)
[2022-02-20] MEDS: Pantoprazole 40 MG TABCR PO (08:25)
[2022-02-20] MEDS: Diclofenac 1% Gel 100 GM TUBE TP ×4 (08:25→21:19)
[2022-02-20] MEDS: Ascorbic Acid 500 MG TAB 1000 MG PO ×2 (08:26→21:17)
[2022-02-20] MEDS: Aspirin E.C. 81 MG TABEC PO (08:26)
[2022-02-20] MEDS: Methocarbamol 750 MG TAB PO ×4 (08:26→21:16)
[2022-02-20] MEDS: amLODIPine 2.5 MG TAB PO (08:26)
[2022-02-20] MEDS: guaiFENesin 600 MG TABCR PO ×2 (08:26→21:18)
[2022-02-20] MEDS: Acetaminophen 500 MG TAB 1000 MG PO ×3 (08:27→21:16)
[2022-02-20] MEDS: Apixaban 5 MG TAB PO ×2 (08:27→21:18)
[2022-02-20 09:20] VITALS: BP 108/65; PULSE 93; RESP 18; TEMP 36.6; O2SAT 95
--- NOTE | 2022-02-20 10:37 | CMPROGNOTE_ITS ---
- If Service Date Differs Date of service: 02/20/22 Time of Service: 10:37 Care Management Progress Note S/O:Fabiola was sitting up in a chair when CM met with her. She looked tired and informed CM that she is feeling confused today. When asked to elaborate she was unable to provide details, she just stated that everything is all mixed up. When questioned she she admitted this is not the first time she has felt this way and that it always clears up. She knows where she is and why she was admi tted. Fabiola talked a little about her falls and maintains that they occur when she gets dizzy. Conversely, she told the SALES DEVELOPMENT DIRECTOR student that her falls were related to her legs buckling. She has been working with PT and is able to ambulate for long distances with just a single point cane. CM informed the provider about the conversation and was assured that this is Fabiola's baseline. A:Fabiola is a 76 year old woman admitted on 02/16/22 with ambulatory dysfunction P:Fabiola would likely benefit from short term rehab in a SNF prior to returning home. Referrals have been sent to 12 facilities. Only one response was received and it was a denial. CM will continue to support Fabiola and her discharge concerns.
--- NOTE | 2022-02-20 11:46 | CHAPLAIN ---
Fabiola was watching a movie on tv when I visited. She said she wasn't doing too well today because she couldn't remember things. She was looking forward to lunch, and asked for a cup of coffee which I got for her. She told me that she has no family members around her and that she couldn't remember where she lives. I will continue to visit.
--- NOTE | 2022-02-20 12:25 | PGE_ITS ---
Date of Service Date of service: 02/20/22 Time of Service: 14:00 Assessment and Plan Assessment and plan (1) Fall at home: Status: Acute Assessment and plan: P.T. evaluation completed. See their evaluation and recommendations. Patient ambulated under her own power w/ single point cane and SBA but did not lose her balance. Patient now willing to go to SNF. has put out referrals. Patient ambulated with single-point cane 120 feet today. (2) Head injury: Status: Acute Assessment and plan: closed head injury with no evidence of acute intracranial injury. will continue to monitor (3) Ambulatory dysfunction: Status: Acute Assessment and plan: as above (4) Palliative care status: Status: Acute Assessment and plan: Completed palliative care consultation: ?Subsequent visit will occur in home or SNF pending discharge; PC will continue to follow to assist the patient with determining goals of care and proper setting for her care. (5) Hypertension: Assessment and plan: Will continue Amlodipine 2.5 mg oral daily, pt is also on Lasix 20 mg oral every 48 hours. (6) Hypothyroidism: Assessment and plan: Will increase her dose to 200 mcg oral daily. We will recheck TSH, free t4, and free t3: 2 weeks after initiating increased dose on 03/03/22 Qualifiers: Hypothyroidism type: acquired Qualified Code(s): E03.9 - Hypothyroidism, unspecified (7) Non-insulin dependent diabetes mellitus: Assessment and plan: Not currently on any antidiabetic medications at home. We will just monitor blood sugars twice daily. glycohemoglobin A1c was 6.8 on 02/17/22 (8) COPD (chronic obstructive pulmonary disease): Assessment and plan: Will continue scheduled dose of Symbicort along with as needed DuoNeb treatments. COPD is not exacerbated. Qualifiers: COPD type: emphysema Emphysema type: centrilobular Qualified Code(s): J43.2 - Centrilobular emphysema (9) Chronic anticoagulation: Assessment and plan: Will continue Apixaban and will evaluate PE resolution with D-dimer.. (10) Smoker: Assessment and plan: Will apply nicotine patch. (11) Pulmonary embolism: Assessment and plan: Will continue Eliquis as per recommendation re: history of Pulmonary embolism. Patient has had frequent fall at home but her PE was unprovoked in May 2021 Qualifiers: Pulmonary embolism type: multiple subsegmental (without acute cor pulmonale) Qualified Code(s): I26.94 - Multiple subsegmental pulmonary emboli without acute cor pulmonale (12) Prerenal azotemia: Status: Acute Assessment and plan: K= 4.1, BUN = 25,Cr. =1.1 Will continue Lasix and potassium every other day as prerenal azotemia remains stable (13) Discharge planning issues: Status: Acute Assessment and plan: Will remains acute inpatient today. Case management has placed multiple referrals to area residential. case is discussed with DR Blanton Subjective Subjective Interval history since last seen: Patient denies pain; denies weakness or dizziness. She is able to reposition herself independently in the recliner on cue.She does not remember having a previous PE for which she is on blood thinner ( Apaxiban). She verbalized that her falls at home are due to her knee buckling while acquiescing that her legs are strong during physical exam.Pt cannot recall the all items on her lunch tray. Exam Narrative Exam Narrative: I have is sitting up in her chair watching TV and as I stated above she was not having any complaints or moaning when I walked in the room as soon as I start asking her about her back she started making moaning sounds. Her back is kyphotic there is no deformities of the spine but she complains of diffuse tenderness wherever I touch her over her thoracic or lumbar area. Const General: cooperative, comfortable and no acute distress Orientation: alert, awake, oriented to person and oriented to place [facility] Head: normal to inspection, normocephalic and atraumatic Eyes General: appearance normal, both eyes and all related structures Other: Pt has her eyeglasses on during exam. Neck Neck: normal visual inspection and full ROM Chest Chest: normal inspection of the chest Resp Effort & Inspection: normal respiratory effort and able to speak in complete sentences Cardio Palpation: normal PMI (5th left intercoastal) Rhythm: regular rhythm GI Inspection: normal to inspection and obesity Auscultation: normal bowel sounds Skin General skin exam: no rashes or lesions noted Neuro General: patient alert, patient awake and oriented Patient Orientation: Person and Place Speech: speech normal Psych Appearance: grossly normal and disheveled Speech and Movement: speech and movement normal Affect: other (Guarded) Objective Last Vital Signs Temp 97.9 F 04/05/22 09:20 Pulse 93 H 02/20/22 09:20 Resp 18 02/20/22 09:20 BP 108/65 02/20/22 09:20 Pulse Ox 95 02/20/22 09:20 Laboratory Results - last 24 hr 02/20/22 05:55 Sodium 140 Potassium 4.1 Chloride 106 Carbon Dioxide 27.7 Anion Gap 6.3 BUN 25 H Creatinine 1.1 H Estimated GFR/1.73 m2 48.55 Glucose 104 Calcium 9.0
[2022-02-20 15:40] VITALS: BP 113/74; PULSE 74; RESP 18; TEMP 36.1; O2SAT 97
--- NOTE | 2022-02-20 15:50 | PT.INTREAT ---
Date of service: 02/20/22 Time of Service: 13:23 PT Notes Visit Reasons: Falls,Deconditioning,Ambulatory Dyfunction Inpatient Physical Therapy Treatment Note [facility] Date: 02/20/2022 PRECAUTIONS: Fall, activity as tolerated SUBJECTIVE: Fabiola is pleasant and agreeable to participating in PT. She states that she is feeling okay today. OBJECTIVE: PAIN: No c/o pain BED MOBILITY/TRANSFERS Sit-stand: I Stand-sit: I GAIT Assistive Device: SPC Weight bearing: Full Assist: S Distance: 300' Deviation: Increased fatigue, minimal SOB THEREX: Patient was instructed in a LE and resisted UE strengthening program, completed in a seated position, as per flow sheet. She utilizes yellow Theraband with UE exercise completion. ASSESSMENT: Patient tolerated session with complaint of increased fatigue and minimal SOB with gait training. She tolerated a progression in gait distance with SPC support, requiring supervision only. She demonstrates steady gait and pacing. PLAN: Continue with gait training and general strengthening for improved mobility to decrease fall risk. Recommend home with PT at this time. TREATMENT CODE/TIME: 25 minutes; [id number], [id number] (13:23)
[2022-02-20 17:57] LABS: D-Dimer 985 ng/mlFEU (<500)
[2022-02-20] MEDS: Lidocaine 5% Patch 1 PATCH TP (18:14)
[2022-02-20] MEDS: ARIPiprazole 5 MG TAB PO (21:18)
[2022-02-20] MEDS: QUEtiapine 25 MG TAB 50 MG PO (21:18)
[2022-02-20 22:47] VITALS: BP 103/58; PULSE 85; RESP 18; TEMP 36.2; O2SAT 93
[2022-02-21] MEDS: Levothyroxine 100 MCG TAB 200 MCG PO (06:17)
[2022-02-21 07:14] LABS: Abs Immature Grans 0.01 10^3/uL (0.0-0.06); Absolute Basophil Count 0.03 10^3/uL (0.0-0.2); Absolute Eosinophil Count 0.11 10^3/uL (0.0-0.7); Absolute Lymphocyte Count 1.46 10^3/uL (1.2-3.4); Absolute Monocyte Count 0.29 10^3/uL (0.1-0.8); Absolute Neutrophil Count 2.34 10^3/uL (1.2-6.7); Basophils % 0.7; Eosinophils % 2.6; HCT 42.2 % (36.0-46.0); HGB 12.7 g/dL (11.2-15.7); Immature Grans % 0.2; Lymphocytes % 34.4; MCH 28.2 pg (27.0-33.0); MCHC 30.1 % (32.0-36.0); MCV 93.8 fL (80-95); MPV 11.6 fL (8.0-11.0); Monocytes % 6.8; Neutrophils % 55.3; Nucleated RBC 0 %; Platelet Count 149 10^3/uL (130-400); RDW 15.8 % (11.7-14.6); RDW-SD 54.4 fL; WBC 4.24 10^3/uL (4.4-10.8)
[2022-02-21] MEDS: Budesonide/Formoterol 160/4.5 6 GM 60 PUFF INH IH ×2 (07:28→21:14)
[2022-02-21 07:31] LABS: Anion Gap 8.2 mmol/L (3-11); BUN 30 mg/dL (7-18); CO2 29.8 mmol/L (21.0-32.0); CREATININE 1.3 mg/dL (0.55-1.02); Calcium 9.6 mg/dL (8.5-10.1); Chloride 103 mmol/L (98-107); Estimated GFR 40.04 (mL/min/1.73m2); Glucose 95 mg/dL (74-106); Potassium 4.2 mmol/L (3.5-5.1); Sodium 141 mmol/L (136-145)
[2022-02-21] MEDS: Aspirin E.C. 81 MG TABEC PO (07:47)
[2022-02-21] MEDS: Ascorbic Acid 500 MG TAB 1000 MG PO ×2 (07:47→21:13)
[2022-02-21] MEDS: Acetaminophen 500 MG TAB 1000 MG PO ×3 (07:47→21:12)
[2022-02-21] MEDS: Cholecalciferol (Vitamin D3) 1,000 UNIT TAB 2000 UNITS PO (07:48)
[2022-02-21] MEDS: Potassium Chloride 20 MEQ TABCR PO (07:48)
[2022-02-21] MEDS: Pantoprazole 40 MG TABCR PO (07:48)
[2022-02-21] MEDS: Furosemide 20 MG TAB PO (07:49)
[2022-02-21] MEDS: Methocarbamol 750 MG TAB PO ×4 (07:49→21:14)
[2022-02-21] MEDS: guaiFENesin 600 MG TABCR PO ×2 (07:50→21:12)
[2022-02-21] MEDS: Diclofenac 1% Gel 100 GM TUBE TP ×4 (07:50→21:14)
[2022-02-21] MEDS: Apixaban 5 MG TAB PO ×2 (07:50→21:13)
[2022-02-21] MEDS: amLODIPine 2.5 MG TAB PO (07:50)
[2022-02-21 07:57] VITALS: BP 123/69; PULSE 79; RESP 16; TEMP 35.5; O2SAT 97
--- NOTE | 2022-02-21 09:59 | PDOC.CMPRO ---
- If Service Date Differs Date of service: 02/21/22 Time of Service: 09:59 Care Management Progress Note S/O:Fabiola was sitting up in a chair when CM met with her. She was smiling and in good spirits. Fabiola informed CM that she is having a good day. She feels better and had had her hair done in a bun by her RESEARCH & ANALYTICS MANAGER. Fabiola received a bed offer from [facility] which she accepted. When told about it at first she verbalized that she did not want to go to a [facility]. CM explained it was a rehab. The goal would be for her to go and continue to work with PT and get stronger so that she can return to her home. Once Fabiola understood that, she was agreeable. She had 2 visitors from her apartment building at the time who also encouraged her to go. Transportation will be via [facility] at about 11 am tomorrow. A:Fabiola is a 76 year old woman admitted on 02/16/22 with ambulatory dysfunction P:Fabiola would likely benefit from short term rehab in a SNF prior to returning home. Referrals have been sent to 12 facilities.A bed offer was received and accepted from [facility] for tomorrow at 11 am. Transportation will be through [facility] coordinated by CM. CM will continue to support Fabiola and her discharge concerns.
[2022-02-21] MEDS: Normal Saline Flush 10 ML SYR IVP (12:00)
--- NOTE | 2022-02-21 13:44 | PGE_ITS ---
Date of Service Date of service: 02/21/22 Time of Service: 13:44 Assessment and Plan Assessment and plan (1) Fall at home: Status: Acute Assessment and plan: continue fall precautions. she has been ambulating will a cane and working with physical therapy. (2) Head injury: Status: Resolved Assessment and plan: closed head injury on anticoagualtion, imaging negative with no evidence of acute intracranial injury. no symptoms (3) Ambulatory dysfunction: Status: Acute Assessment and plan: as above (4) Palliative care status: Status: Acute Assessment and plan: Completed palliative care consultation: ?Subsequent visit will occur in home or SNF pending discharge; PC will continue to follow to assist the patient with determining goals of care and proper setting for her care. (5) Hypertension: Assessment and plan: Will continue Amlodipine 2.5 mg oral daily, pt is also on Lasix 20 mg oral every 48 hours. (6) Hypothyroidism: Assessment and plan: Will increase her dose to 200 mcg oral daily. We will recheck TSH, free t4, and free t3: 2 weeks after initiating increased dose on 03/03/22 suspect medication non compliance home health reports that she refuses to have them oversee her medication. Qualifiers: Hypothyroidism type: acquired Qualified Code(s): E03.9 - Hypothyroidism, unspecified (7) Non-insulin dependent diabetes mellitus: Assessment and plan: Not currently on any antidiabetic medications at home. We will just monitor blood sugars twice daily. glycohemoglobin A1c was 6.8 on 02/17/22 (8) COPD (chronic obstructive pulmonary disease): Assessment and plan: Will continue scheduled dose of Symbicort along with as needed DuoNeb fernie tments. COPD is not exacerbated. Qualifiers: COPD type: emphysema Emphysema type: centrilobular Qualified Code(s): J43.2 - Centrilobular emphysema (9) Chronic anticoagulation: Assessment and plan: Will continue Apixaban and will evaluate PE resolution with D-dimer.. (10) Smoker: Assessment and plan: Will apply nicotine patch. (11) Pulmonary embolism: Assessment and plan: Will continue Eliquis as per recommendation re: history of Pulmonary embolism. Patient has had frequent fall at home but her PE was unprovoked in May 2021 Qualifiers: Pulmonary embolism type: multiple subsegmental (without acute cor pulmonale) Qualified Code(s): I26.94 - Multiple subsegmental pulmonary emboli without acute cor pulmonale (12) Prerenal azotemia: Status: Acute Assessment and plan: K= 4.1, BUN = 25,Cr. =1.1 Will continue Lasix and potassium every other day as prerenal azotemia remains stable (13) Discharge planning issues: Status: Acute Assessment and plan: Will remains acute inpatient today. Case management has placed multiple referrals to [facility] long-term and she is [facility] to [facility] for tomorrow am discharge. case is discussed with DR Schaffer Subjective Subjective Patient reports: no new complaints, tolerating liquids well, tolerating a regular diet, voiding w/o difficulty, bowel movement and afebrile; denies shortness of breath Exam Const General: cooperative, comfortable and no acute distress Nutritional Appearance: obese Orientation: alert, awake, oriented to person, oriented to place and confused (poor historian ) HENMT Head: normal to inspection, normocephalic and atraumatic Mouth: oral mucosae normal Chest Chest: normal inspection of the chest Resp Effort & Inspection: normal respiratory effort Auscultation: diminished lung sounds Cardio Rate: regular rate Rhythm: regular rhythm GI Inspection: obesity Palpation: soft Objective Last Vital Signs Temp 35.5 C L 02/21/22 07:57 Pulse 79 02/21/22 07:57 Resp 16 02/21/22 07:57 BP 123/69 02/21/22 07:57 Pulse Ox 97 02/21/22 07:57 Laboratory Results - last 24 hr 02/20/22 02/21/22 02/21/22 16:15 06:34 06:34 WBC 4.24 L RBC 4.50 Hgb 12.7 Hct 42.2 MCV 93.8 MCH 28.2 MCHC 30.1 L RDW 15.8 H Plt Count 149 MPV 11.6 H Immature Gran % 0.2 Neutrophils % 55.3 Lymphocytes % 34.4 Monocytes % 6.8 Eosinophils % 2.6 Basophils % 0.7 Nucleated RBC % 0 Absolute Neutrophils 2.34 Absolute Lymphocytes 1.46 Absolute Monocytes 0.29 Absolute Eosinophils 0.11 Absolute Basophils 0.03 D-Dimer 985 H Sodium 141 Potassium 4.2 Chloride 103 Carbon Dioxide 29.8 Anion Gap 8.2 BUN 30 H Creatinine 1.3 H Estimated GFR/1.73 m2 40.04 Glucose 95 Calcium 9.6
[2022-02-21] MEDS: Docusate Sodium 100 MG CAP PO ×2 (14:34→21:13)
[2022-02-21 15:22] VITALS: BP 113/75; PULSE 81; RESP 18; TEMP 36.1; O2SAT 96
[2022-02-21] MEDS: Lidocaine 5% Patch 1 PATCH TP (18:39)
[2022-02-21] MEDS: QUEtiapine 25 MG TAB 50 MG PO (21:13)
[2022-02-21] MEDS: ARIPiprazole 5 MG TAB PO (21:13)
[2022-02-21 23:56] VITALS: BP 123/73; PULSE 88; RESP 18; TEMP 36; O2SAT 96
[2022-02-22] MEDS: Levothyroxine 100 MCG TAB 200 MCG PO (05:43)
[2022-02-22 07:47] VITALS: BP 121/69; PULSE 83; RESP 19; TEMP 36.4; O2SAT 94
[2022-02-22] MEDS: Budesonide/Formoterol 160/4.5 6 GM 60 PUFF INH IH (08:00)
[2022-02-22] MEDS: Docusate Sodium 100 MG CAP PO (08:53)
[2022-02-22] MEDS: guaiFENesin 600 MG TABCR PO (08:53)
[2022-02-22] MEDS: amLODIPine 2.5 MG TAB PO (08:53)
[2022-02-22] MEDS: Pantoprazole 40 MG TABCR PO (08:53)
[2022-02-22] MEDS: Apixaban 5 MG TAB PO (08:53)
[2022-02-22] MEDS: Acetaminophen 500 MG TAB 1000 MG PO (08:53)
[2022-02-22] MEDS: Aspirin E.C. 81 MG TABEC PO (08:53)
[2022-02-22] MEDS: Methocarbamol 750 MG TAB PO ×2 (08:53→11:56)
[2022-02-22] MEDS: Cholecalciferol (Vitamin D3) 1,000 UNIT TAB 2000 UNITS PO (08:54)
[2022-02-22] MEDS: Diclofenac 1% Gel 100 GM TUBE TP ×2 (08:54→11:56)
[2022-02-22] MEDS: Ascorbic Acid 500 MG TAB 1000 MG PO (08:54)
--- NOTE | 2022-02-22 11:11 | W.PM.DS.N ---
Date of service: 02/22/22 Time of Service: 11:11 DS: Diagnosis Discharge Diagnosis (1) Fall at home: Status: Acute (2) Head injury: Status: Resolved (3) Ambulatory dysfunction: Status: Acute (4) Hypertension: (5) Hypothyroidism: (6) Non-insulin dependent diabetes mellitus: (7) COPD (chronic obstructive pulmonary disease): (8) Chronic anticoagulation: (9) Smoker: (10) Pulmonary embolism: (11) Prerenal azotemia: Status: Acute Discharge Plan Disposition Patient Disposition: SNF (LEVEL 1) [facility] Condition: Stable Discharge Details Reason For Visit: Falls,Deconditioning,Ambulatory Dyfunction Admit Date/Time: 02/19/22 14:00 Admit Provider: Sandeep Blanton Attending Provider: Sandeep Blanton Primary Care Provider: Kathleen Azevedo Hospital Course Hospital Course: This is 76 year female, with recent admissions for frequent falls at home, suspected of medical non compliance who presented to the ED for fall with head injury. 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 Her head imaging was negative for bleed and she has remained with no symptoms to concussion. she has been eating and drinking and working with physical therapy for gait training and stability, making some progress. It is felt that she would benefit from ongoing inpatient rehabilitation to maximize her ambulation and safety. Additional to medication oversight. she was found to have an increasing TSH despite our increasing her dose. We had sent in home health to oversee her medication but she reportedly declined to have them oversee her medication. She is a poor historian and at baseline. Her TSH was 45.57she has been medically stable and a bed has been secured at the [facility] for rehabilitation. discharge discussed with DR Schaffer. Home Meds and New Rx's Prescriptions: Continued ipratropium-albuterol 0.5 mg-3 mg(2.5 mg base)/3 mL Solution For Nebulization 3 ml UPD Q4H PRN PRN (Reason: shortness of breath or wheezing) Qty: 180 0RF pantoprazole 40 mg Tablet,Delayed Release (Dr/Ec) 40 mg PO DAILY@0730 Qty: 30 0RF acetaminophen [Mapap Arthritis Pain] 650 mg Tablet Extended Release 650 mg PO BID 0RF docusate sodium 100 mg capsule 100 mg PO BID PRN PRN0RF Label Comments: TAKE 1 CAPSULE BY MOUTH TWICE DAILY NEEDED Flovent HFA 220 mcg/actuation HFA aerosol inhaler 2 inh INHALATION BID 0RF Label Comments: INHALE 2 PUFFS BY MOUTH TWICE DAILY ondansetron HCl 4 mg tablet 4 mg PO PRN PRN0RF Label Comments: TAKE 1 TABLET BY MOUTH EVERY 8 HOURS NEEDED FOR NAUSEA OR DIZZINESS cholecalciferol (vitamin D3) 25 mcg (1,000 unit) tablet 2,000 unit PO DAILY 0RF Label Comments: Take 2 tablet by mouth once a day guaifenesin [Mucinex] 600 mg Tablet Extended Release 12hr 1,200 mg PO BID Qty: 10 0RF Mucinex 1,200 mg tablet extended release 12hr 1,200 mg PO Q12H Qty: 12 0RF amlodipine 2.5 mg tablet 2.5 mg PO DAILY 0RF Label Comments: Take 1 tablet by mouth once a day budesonide-formoterol [Symbicort] 160-4.5 mcg/actuation HFA aerosol inhaler 2 puff INHALATION BID 0RF Label Comments: Inhale 2 puff as directed twice a day levothyroxine 175 mcg capsule 175 mcg PO DAILY 0RF aspirin 81 mg tablet,delayed release (DR/EC) 81 mg PO DAILY 0RF Label Comments: TK 1 T PO D Eliquis 5 mg tablet 5 mg PO BID Qty: 71 0RF Rx Instructions: Take 10 mg BID x 5 days and this afternoon. Then 5 mg BID aripiprazole 5 mg tablet 5 mg PO HS 0RF Label Comments: TAKE 1 TABLET BY MOUTH AT BEDTIME quetiapine 25 mg Tablet 50 mg PO HS Qty: 20 0RF ascorbic acid (vitamin C) [Vitamin C] 500 mg Tablet 1,000 mg PO BID Qty: 60 0RF lidocaine [Lidoderm] 1 PATCH patch 1 patch Topical Q24H Qty: 4 0RF Changed furosemide [Lasix] 20 mg Tablet 20 mg PO Q48H Qty: 0 0RF Held diazepam 5 mg tablet 5 mg PO TID PRN PRN (Reason: Nausea) 0RF Hold Instructions: if needed by outpatient team Label Comments: Take 1 tablet by mouth three times a day as needed take for nausea Discharge Instructions Instructions: Dehydration (DC), Fall Prevention for Older Adults (DC) Referrals: Kathleen Azevedo [Primary Care Provider] - (on discharge from rehab, routine rehab follow up while at [facility].) Activity:: Activity as Tolerated Equipment/Supplies:: No Equipment Needed Diet:: As Tolerated Discharge Orders Discharge Orders: Discharge Order (Routine); Ordered 02/22/22 Ordered By: Margarita Vann Discharge Data Discharge Date/Time-TO BE ENTERED AT DEPARTURE: 02/22/22 12:13 DS: Summary Time Spent with Patient providing and/or coordinating discharge services: Greater than 30 minutes Status at Discharge Functional status at discharge: independent ambulation Overall status at discharge: patient is back to baseline Mental Status: mental status grossly normal Speech and Movement: speech and movement normal Mood: congruent mood Affect: normal affect Exam Const General: cooperative, comfortable and no acute distress Nutritional Appearance: obese Orientation: alert, awake, oriented to person, oriented to place and confused (poor historian ) HENMT Head: normal to inspection, normocephalic and atraumatic Mouth: oral mucosae normal Chest Chest: normal inspection of the chest Resp Effort & Inspection: normal respiratory effort Auscultation: diminished lung sounds Cardio Rate: regular rate Rhythm: regular rhythm GI Inspection: obesity Palpation: soft Psych Mental Status: mental status grossly normal Speech and Movement: speech and movement normal Mood: congruent mood Affect: normal affect DS: Data Vitals/I&O Vitals and I&O: Vital Signs Temperature 36.4 C L 02/22/22 07:47 Temperature Source Tympanic 02/22/22 07:47 Pulse 83 02/22/22 07:47 Pulse Rhythm Regular 02/22/22 06:09 Pulse 69 02/16/22 15:10 Respiratory Rate 19 02/22/22 07:47 Respiratory Effort 02/22/22 06:09 Respiratory Depth Normal 02/22/22 06:09 Respiratory Pattern Normal 02/22/22 06:09 Blood Pressure 121/69 02/22/22 07:47 Blood Pressure Mean 77 02/16/22 13:01 Blood Pressure Position Supine 02/16/22 12:52 Pulse Oximetry 94 02/22/22 07:47 Oxygen Delivery Method Room Air 02/22/22 07:47 Oxygen Flow Rate 0 02/22/22 07:47 Pain Level 8 02/22/22 07:47 Intake & Output 02/21/22 02/21/22 02/22/22 11:59 23:59 11:59 Intake Total 360 / 600 240 / 600 740 / 740 Output Total 1251 / 2426 1175 / 2426 1400 / 1400 Balance -891 / -1826 -935 / -1826 -660 / -660 Weight 100.2 kg 100.1 kg Intake: Oral 360 / 600 240 / 600 740 / 740 Output: Urine 1251 / 2426 1175 / 2426 1400 / 1400 Other: Urine Color Yellow Pale Yellow Yellow Urine Appearance Clear Clear Clear Urine Odor None Normal Normal Comment unmeasured void Stool Size Smear Stool Characteristics Brown Voiding Methods Toilet Toilet Toilet REPLACED BY [facility] All Active Problems (Updated 02/21/22 @ 17:23 by Margarita Vann NP) Prerenal azotemia (Acute) Fall at home (Acute) Ambulatory dysfunction (Acute) Palliative care status (Acute) Hypoxemia (Acute) Cellulitis (Acute) Respiratory failure with hypoxia (Acute) Low back pain (Acute) Noncompliance with medication regimen (Acute) Pain, joint, knee, right (Acute) Fall (Acute) Blunt head trauma (Acute) Blunt injury of back (Acute) Fall (Acute) Contusion (Acute) Auditory hallucination (Acute) Discharge planning issues (Acute) DVT prophylaxis (Acute) Diverticulosis (Chronic) Cholelithiasis (Chronic) Nausea vomiting and diarrhea (Acute) Unsteady gait when walking (Acute) Constipation (Chronic) Memory impairment (Chronic) 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) Osteoarthritis of right knee (Chronic) Medical History Aneurysm of infrarenal abdominal aorta Chronic anticoagulation CKD (chronic kidney disease) stage 3, GFR 30-59 ml/min COPD (chronic obstructive pulmonary disease) COPD (chronic obstructive pulmonary disease) Failure to thrive in adult Fracture of both ankles Hallucinations Hearing loss History of blood transfusion Hx of hyperlipidemia Hypertension Hypothyroidism Non-insulin dependent diabetes mellitus Obesity 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 Pulmonary embolism Seborrheic keratosis Smoker Surgical History History of bilateral tubal ligation History of hernia repair Family History Father Diabetes Social History Smoking/Tobacco Use Status: Current every day Tobacco Type: cigarettes Years smoked: 58 Tobacco: How many years used: 15 Counseling given: provider counseling and support medications Smoking risk assessment performed?: Yes Alcohol Intake: never Drug use: Never Substance use type: does not use Household members: none Housing: apartment Number of Children: 3 number of grandchildren: 1 What is your relationship status?: Panel score (0-1 are the most socially isolated patients): 0 What type of physical activity do you participate in: walking Seatbelt use: always Do you feel safe at home: Yes Do you feel safe in your relationship?: Yes
--- NOTE | 2022-02-22 14:53 | PDOC.CMDIS ---
- If Service Date Differs Date of service: 02/22/22 Time of Service: 14:53 LACE Index Scoring Tool - Questions: Length of Stay (in days): 3 Acuity (Admit via E.D.?): Yes Comorbidities: Diabetes w/o Complication, Chronic Pulmonary Disease, Liver or Renal Disease E.D. Visits: 13 - Answers: Total Score: 15 Risk of Readmission: High Risk Care Management Discharge Reason for Hospitalization: weakness, falls Discharge Plan: Fabiola will be discharged to [facility] for short term rehab. She will transport via RCT coordinated by CM and follow up with the facility providers. Patient/Family Education Needs: Review of discharge instructions, follow up plan, medications, limitations, activity, discuss Ask Me Three
--- NOTE | 2022-02-23 09:29 | INDS_ITS ---
Date of service: 02/23/22 Time of Service: 09:29 PT Notes Visit Reasons: Falls,Deconditioning,Ambulatory Dyfunction Physical Therapy Inpatient Discharge Summary Date:? 02/23/2022 Dates of Service: 02/18/2022 through 02/19/2022 This is a clinical summary of care provided for the duration of dates listed above. No charge was made in the completion of this documentation. Referring Doctor:? Dr. Sandeep Blanton PT Orders: PT CONSULT: Fall safety assessment Precautions: Standard, fall precautions Patient Profile/Admitting Diagnosis:?Patient is a 76-year-old female admitted to [facility] February secondary to fall at home.? She was had a prior stay at [facility] from [facility] 2021 when she was admitted secondary to pneumonia and falls.? Than another ED visit on February 11 secondary to dizziness.? Most recently she presented to the emergency department for chief complaint of fall.? Patient reports becoming dizzy with position change and she fell and struck the left side of her head.? At time of intake, patient also states that and back pain.? Patient denies any other pain or discomfort.?She is a 76-year-old smoker with a history of COPD, type 2 diabetes mellitus, pulmonary embolism chronically anticoagulated with Eliquis, essential hypertension, hypothyroidism, chronic back pain, previous COVID-19 infection September 2021 but now currently vaccinated presented to the emergency department today for the second time within the past week because of complaints of dizziness and falls.? She was evaluated treated and discharged from the emergency department on 02/11/2022.? PFSH All Active Problems?(Updated 02/16/22 @ 19:51 by Sandeep Blanton) Prerenal azotemia (Acute) Dizziness (Acute) Fall at home (Acute) Head injury (Acute) Ambulatory dysfunction (Acute) Palliative care status (Acute) Hypoxemia (Acute) Cellulitis (Acute) Respiratory failure with hypoxia (Acute) Low back pain (Acute) Noncompliance with medication regimen (Acute) Pain, joint, knee, right (Acute) Fall (Acute) Blunt head trauma (Acute) Blunt injury of back (Acute) Fall (Acute) Contusion (Acute) Auditory hallucination (Acute) Discharge planning issues (Acute) DVT prophylaxis (Acute) Diverticulosis (Chronic) Cholelithiasis (Chronic) Nausea vomiting and diarrhea (Acute) Unsteady gait when walking (Acute) Constipation (Chronic) Memory impairment (Chronic) 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 History of bilateral tubal ligation History of hernia repair Social History/Home Situation: Lives alone on the first floor of an apartment building, one step to enter. Independent with all mobility of ADLs with single point cane.? Receives meals on wheels for her lunch, able to prepare own michele kfast and supper.? Independent with bathing and dressing. Fabiola does not have a life line in place. Equipment Owned/DME: [facility] Subjective:? NT. See most recent HEALTH PROFESSIONAL notes. Objective:? General Observation: NT. See most recent HEALTH PROFESSIONAL notes. Mental Status: NT. See most recent HEALTH PROFESSIONAL notes. Pain: NT. See most recent HEALTH PROFESSIONAL notes. Vital Signs: NT. See most recent HEALTH PROFESSIONAL notes. ROM: Right Upper Extremity: ? Shoulder Flexion limited to 90 degrees AA 100 degrees. Shoulder abduction 90 degrees. ER limited to neutral at side.Elbow flexion WFL. Wrist flexion WFL. Functional opening and closing of hand WFL. Left Upper Extremity:? Shoulder Flexion WFL. Shoulder abduction WFL.ER 20 degrees Elbow flexion WFL. Wrist flexion WFL. Functional opening and closing of hand WFL. Right Lower Extremity: Hip flexion 100 degrees while seated on chair. Hip abduction WFL. Knee flexion WFL. Ankle dorsiflexion to neutral only. Ankle plantarflexion WFL. Left Lower Extremity: Hip [id number] degrees while seated on chair. Hip abduction WFL. Knee flexion WFL. Ankle dorsiflexion to neutral only. Ankle plantarflexion WFL. Strength: Right Upper Extremity: Shoulder flexors 3+/5. Shoulder abductors 3+/5. Elbow flexors 4+/5. Elbow extensors 4/5. Line Repairer Tower strong. Left Upper Extremity: Shoulder flexors 4/5. Shoulder abductors 4/5. Elbow flexors 5/5. Elbow extensors 5/5. Line Repairer Tower strong. Right Lower Extremity: Hip flexors 4/5. Hip abductors 4-/5. Knee flexors 4+/5. Knee extensors 4/5. Ankle dorsiflexors 4/5. Ankle plantarflexors 4-/5. Left Lower Extremity: Hip flexors 4/5. Hip abductors 4-/5. Knee flexors 4+/5. Knee extensors 4/5. Ankle dorsiflexors 4/5. Ankle plantarflexors 4-/5. Bed Mobility/Transfers: Supine to sit: independent Sit to stand: independent Stand to sit:? independent? Bed to chair: independent Gait: Up to 300 feet using SPC with supervision. 1 loss of balance requiring minimal assist. Balance: Static Sitting: Normal Dynamic Sitting: Normal Static Standing: Fair Dynamic Standing: Fair Assessment:???Patient is a 76 year old female referred to physical therapy services with the diagnosis of dizziness, COPD, s/p fall.? Given her recurrent falls do not feel patient is safe to return home at this time.? May benefit from placement in care home facility to address the following impairments and functional limitations.? She presents with clinical signs and symptoms consistent with current/admitting diagnoses that have resulted to mobility limitations, gait instability, generalized weakness, and overall ADL decline as demonstrated by the following impairment level findings: 1.? Decreased strength to B UE/LE major muscle groups 2.? Impaired standing balance 3.? Impaired activity tolerance 4. Shortness of breath Impairments are contributing to the following functional limitations: 1.? Difficulty with ambulation without assistive device and physical assistance 2.? Increased completion time for mobility ADL performance 3.? Increased risk for falls 4.? Difficulty with managing steps alone safely Goals: Goals X1 week 1. Supine-Sit Independent MET 2. Sit-Supine Independent MET 3. Sit-Stand Independent MET 4. Stand-Sit Independent MET 5. Bed-Chair Independent MET 6. Chair-Bed Independent MET 7. Gait Independent with least restrictive assistive device as needed 100 ft or greater NOT MET 8. Stairs up/down 1 step to enter apartment NOT MET 9. Balance: Improved standing balance to good NOT MET DISCHARGE RECOMMENDATIONS: [] ? Home with no services [] [] ? Home with services [specify] [] ? Home with outpatient PT [] [X] ? SNF for continued rehabilitation [] ? [facility] [] [] ? SNF versus LTC based on ability to participate and progress [] TREATMENT CODE/TIME: SHELBI Thank you for the opportunity to participate in the care of this patient. Ting Posada PT, DPT, CLT [facility] [place], [place]
== END 2022-02-22 12:13 | disposition skilled nursing facility (03) | DRG 914 ==
LOC: ER 17:00 → MS 17:06
PROVIDERS: Nurse Practitioner Acute Care; Admitting Provider Internal Medicine; Emergency Provider Nurse Practitioner Family; PCP Nurse Practitioner; Visit Provider Internal Medicine
DX: S09.90XA Unspecified injury of head, initial encounter (principal); E86.0 Dehydration; R42 Dizziness and giddiness; J43.2 Centrilobular emphysema; E03.9 Hypothyroidism, unspecified; E11.9 Type 2 diabetes mellitus without complications; I10 Essential (primary) hypertension; Z79.01 Long term (current) use of anticoagulants; F17.210 Nicotine dependence, cigarettes, uncomplicated; W19.XXXA Unspecified fall, initial encounter; G89.29 Other chronic pain; R29.6 Repeated falls; Z91.81 History of falling; Z86.16 Personal history of COVID-19; M54.50 Low back pain, unspecified; K59.00 Constipation, unspecified; R41.3 Other amnesia; Z86.711 Personal history of pulmonary embolism
CPT/HCPCS: 36415; 74177; 80048; 80053; 87635; 93005; 94618; 94640; 97110; 97162; 97530; 99285; 70450; 72125; 81003; 83036; 83735; 83880; 84439; 84443; 84481; 84484; 85025; 85379; 93010; 99220; 99225; 99232; 99233; 99239; 99284; G0378; J2270; J3490

== ENCOUNTER 2022-05-08 17:56 | Outpatient (REF) | payer OTHER, MEDICAID, SELFPAY ==
[2022-05-08 17:42] LABS: TSH (W/Ref FT4) < 0.01 uIU/mL (0.36-3.74)
[2022-05-08 18:06] LABS: FREE T4 1.67 ng/dL (0.76-1.46)
== END 2022-05-08 17:57 | disposition home or self-care (01) ==
LOC: LBN 17:56
PROVIDERS: PCP Nurse Practitioner; Visit Provider Nurse Practitioner Gerontology
DX: E03.9 Hypothyroidism, unspecified (principal); R42 Dizziness and giddiness
CPT/HCPCS: 84439; 84443

== ENCOUNTER 2022-06-26 18:06 | Outpatient (REF) | payer OTHER, MEDICAID, SELFPAY ==
[2022-06-26 20:15] LABS: Anion Gap 7.8 mmol/L (3-11); BUN 21 mg/dL (7-18); CO2 30.2 mmol/L (21.0-32.0); CREATININE 1.3 mg/dL (0.55-1.02); Calcium 8.8 mg/dL (8.5-10.1); Chloride 104 mmol/L (98-107); Estimated GFR 39.93 (mL/min/1.73m2); Glucose 96 mg/dL (74-106); Potassium 4.4 mmol/L (3.5-5.1); Sodium 142 mmol/L (136-145); TSH (W/Ref FT4) 0.04 uIU/mL (0.36-3.74)
[2022-06-26 20:35] LABS: FREE T4 1.16 ng/dL (0.76-1.46)
[2022-06-27 10:19] LABS: Abs Immature Grans 0.02 10^3/uL (0.0-0.06); Absolute Basophil Count 0.02 10^3/uL (0.0-0.2); Absolute Eosinophil Count 0.11 10^3/uL (0.0-0.7); Absolute Lymphocyte Count 1.68 10^3/uL (1.2-3.4); Absolute Monocyte Count 0.54 10^3/uL (0.1-0.8); Absolute Neutrophil Count 4.55 10^3/uL (1.2-6.7); Basophils % 0.3; Eosinophils % 1.6; HCT 37.3 % (36.0-46.0); HGB 11.6 g/dL (11.2-15.7); Immature Grans % 0.3; Lymphocytes % 24.3; MCH 28.5 pg (27.0-33.0); MCHC 31.1 % (32.0-36.0); MCV 92 fL (80-95); MPV 12.2 fL (8.0-11.0); Monocytes % 7.8; Neutrophils % 65.7; Platelet Count 152 10^3/uL (130-400); RBC 4.07 10^6/uL (3.93-5.22); RDW-SD 47.5 fL; WBC 6.92 10^3/uL (4.4-10.8)
[2022-06-27 10:35] LABS: NT-proBNP 243 pg/mL (<300)
== END 2022-06-26 18:07 | disposition home or self-care (01) ==
LOC: LBN 18:06
PROVIDERS: PCP Nurse Practitioner; Visit Provider Nurse Practitioner Gerontology
DX: E03.9 Hypothyroidism, unspecified (principal); I50.9 Heart failure, unspecified; E11.65 Type 2 diabetes mellitus with hyperglycemia; J43.2 Centrilobular emphysema; M62.81 Muscle weakness (generalized)
CPT/HCPCS: 80048; 83880; 84439; 84443; 85025

== ENCOUNTER 2022-08-29 18:44 | Outpatient (REF) | payer OTHER, MEDICAID, SELFPAY ==
[2022-08-29 18:29] LABS: Hemoglobin A1C 6.1 % (<5.7)
== END 2022-08-29 18:45 | disposition home or self-care (01) ==
LOC: LBN 18:44
PROVIDERS: PCP Nurse Practitioner; Visit Provider Nurse Practitioner Gerontology
DX: R73.09 Other abnormal glucose (principal); R68.89 Other general symptoms and signs
CPT/HCPCS: 83036

== ENCOUNTER 2022-09-28 02:01 | Outpatient (CLI) | payer OTHER, MEDICAID, SELFPAY ==
[2022-09-28] MEDS: Albuterol HFA 18 GM 200 PUFF INH IH (13:53)
[2022-09-28] MEDS: Inhaler, Assist Device 1 EACH MC (13:53)
--- NOTE | 2022-10-08 16:42 | W.PFT ---
Date of service: 09/28/22 Time of Service: 13:05 Pulmonary Function Test Result Requesting Provider Gail Indications: COPD Interpretation Spirometry: There is moderate airflow limitation. There is no significant bronchodilator response. Lung Volumes: There is air trapping and hyperinflation. Diffusion Capacity: Normal diffusion Airway Pressure: Increased airways resistance. Impression Moderate airflow limitation with air trapping and a normal diffusion. This may represent chronic bronchitis. Clinical Correlation therefore is recommended.
== END 2022-09-28 02:02 | disposition home or self-care (01) ==
LOC: RT 02:01
PROVIDERS: PCP Nurse Practitioner; Visit Provider Student in an Organized Health Care Education/Training Program
DX: J44.9 Chronic obstructive pulmonary disease, unspecified (principal); J98.4 Other disorders of lung
CPT/HCPCS: 94060; 94726; 94729

== ENCOUNTER 2022-11-15 17:55 | Outpatient (REF) | payer OTHER, MEDICAID, SELFPAY ==
[2022-11-15 18:33] LABS: Abs Immature Grans 0.03 10^3/uL (0.0-0.06); Absolute Basophil Count 0.02 10^3/uL (0.0-0.2); Absolute Lymphocyte Count 1.51 10^3/uL (1.2-3.4); Absolute Monocyte Count 0.34 10^3/uL (0.1-0.8); Absolute Neutrophil Count 3.72 10^3/uL (1.2-6.7); Basophils % 0.3; Eosinophils % 3.4; HCT 33.6 % (36.0-46.0); HGB 10.8 g/dL (11.2-15.7); Immature Grans % 0.5; Lymphocytes % 25.9; MCH 29.4 pg (27.0-33.0); MCHC 32.1 % (32.0-36.0); MCV 92 fL (80-95); MPV 11.8 fL (8.0-11.0); Monocytes % 5.8; Neutrophils % 64.1; Platelet Count 154 10^3/uL (130-400); RBC 3.67 10^6/uL (3.93-5.22); RDW-SD 47.2 fL; WBC 5.82 10^3/uL (4.4-10.8)
[2022-11-15 18:53] LABS: Hemoglobin A1C 6.2 % (<5.7)
[2022-11-15 19:03] LABS: Vitamin D 25 Total 41.9 ng/mL (30-100)
[2022-11-15 19:08] LABS: ALT 19 U/L (14-59); AST 18 U/L (15-37); Albumin 3.5 g/dL (3.4-5.0); Alkaline Phosphatase 119 U/L (46-116); Anion Gap 6.4 mmol/L (3-11); BUN 27 mg/dL (7-18); Bilirubin, Total 0.3 mg/dL (0.2-1.0); CO2 30.6 mmol/L (21.0-32.0); CREATININE 1.3 mg/dL (0.55-1.02); Chloride 102 mmol/L (98-107); Estimated GFR 42.88 (mL/min/1.73m2); Glucose 161 mg/dL (74-106); Potassium 4.1 mmol/L (3.5-5.1); Sodium 139 mmol/L (136-145); TSH (W/Ref FT4) 8.26 uIU/mL (0.36-3.74); Total Protein 7.2 g/dL (6.4-8.2); Vitamin B12 316 pg/mL (193-986)
[2022-11-15 19:43] LABS: FREE T4 0.86 ng/dL (0.76-1.46)
== END 2022-11-15 17:56 | disposition home or self-care (01) ==
LOC: LBN 17:55
PROVIDERS: PCP Nurse Practitioner; Visit Provider Nurse Practitioner Gerontology
DX: E11.65 Type 2 diabetes mellitus with hyperglycemia (principal); R68.89 Other general symptoms and signs; E55.9 Vitamin D deficiency, unspecified
CPT/HCPCS: 80053; 82306; 82607; 83036; 84439; 84443; 85025

== ENCOUNTER 2022-11-28 21:28 | Outpatient (REF) | payer OTHER, MEDICAID, SELFPAY ==
[2022-11-28 19:26] LABS: Abs Immature Grans 0.07 10^3/uL (0.0-0.06); Absolute Basophil Count 0.03 10^3/uL (0.0-0.2); Absolute Eosinophil Count 0.26 10^3/uL (0.0-0.7); Absolute Lymphocyte Count 1.64 10^3/uL (1.2-3.4); Absolute Monocyte Count 0.41 10^3/uL (0.1-0.8); Absolute Neutrophil Count 5.93 10^3/uL (1.2-6.7); Basophils % 0.4; Eosinophils % 3.1; HCT 36.2 % (36.0-46.0); HGB 11.3 g/dL (11.2-15.7); Immature Grans % 0.8; Lymphocytes % 19.7; MCH 28.8 pg (27.0-33.0); MCHC 31.2 % (32.0-36.0); MCV 92 fL (80-95); MPV 10.9 fL (8.0-11.0); Monocytes % 4.9; Neutrophils % 71.1; Platelet Count 277 10^3/uL (130-400); RBC 3.92 10^6/uL (3.93-5.22); RDW-SD 47.6 fL; WBC 8.34 10^3/uL (4.4-10.8)
[2022-11-28 19:56] LABS: Hemoglobin A1C 6.6 % (<5.7)
[2022-11-28 20:45] LABS: Vitamin D 25 Total 48.2 ng/mL (30-100)
[2022-11-28 20:49] LABS: ALT 23 U/L (14-59); AST 21 U/L (15-37); Albumin 3.7 g/dL (3.4-5.0); Alkaline Phosphatase 156 U/L (46-116); Anion Gap 9.1 mmol/L (3-11); BUN 23 mg/dL (7-18); Bilirubin, Total 0.3 mg/dL (0.2-1.0); CO2 29.9 mmol/L (21.0-32.0); CREATININE 1.3 mg/dL (0.55-1.02); Calcium 9.6 mg/dL (8.5-10.1); Chloride 101 mmol/L (98-107); Estimated GFR 42.88 (mL/min/1.73m2); Ferritin 73 ng/mL (8-252); Glucose 130 mg/dL (74-106); Potassium 4.4 mmol/L (3.5-5.1); Sodium 140 mmol/L (136-145); TSH (W/Ref FT4) 16.21 uIU/mL (0.36-3.74); Total Protein 8.5 g/dL (6.4-8.2)
[2022-11-28 21:07] LABS: FREE T4 1.02 ng/dL (0.76-1.46)
[2022-11-28 21:09] LABS: NT-proBNP 216 pg/mL (<300)
== END 2022-11-28 21:29 | disposition home or self-care (01) ==
LOC: LBN 21:28
PROVIDERS: PCP Nurse Practitioner; Visit Provider Nurse Practitioner Gerontology
DX: E11.65 Type 2 diabetes mellitus with hyperglycemia (principal); R68.89 Other general symptoms and signs; E55.9 Vitamin D deficiency, unspecified; J43.2 Centrilobular emphysema; E03.9 Hypothyroidism, unspecified; J44.9 Chronic obstructive pulmonary disease, unspecified
CPT/HCPCS: 80053; 82306; 82728; 83036; 83880; 84439; 84443; 85025

== ENCOUNTER 2022-12-11 19:34 | Outpatient (REF) | payer OTHER, MEDICAID, SELFPAY ==
[2022-12-11 18:37] LABS: ALT 15 U/L (14-59); AST 19 U/L (15-37); Albumin 3.4 g/dL (3.4-5.0); Alkaline Phosphatase 113 U/L (46-116); Anion Gap 8.9 mmol/L (3-11); BUN 38 mg/dL (7-18); Bilirubin, Total 0.4 mg/dL (0.2-1.0); CO2 29.1 mmol/L (21.0-32.0); CREATININE 1.3 mg/dL (0.55-1.02); Calcium 9.1 mg/dL (8.5-10.1); Chloride 99 mmol/L (98-107); Estimated GFR 42.88 (mL/min/1.73m2); Glucose 145 mg/dL (74-106); Potassium 3.6 mmol/L (3.5-5.1); Sodium 137 mmol/L (136-145); Total Protein 7.4 g/dL (6.4-8.2)
== END 2022-12-11 19:35 | disposition home or self-care (01) ==
LOC: LBN 19:34
PROVIDERS: PCP Nurse Practitioner; Visit Provider Nurse Practitioner Gerontology
DX: R60.0 Localized edema (principal); E78.5 Hyperlipidemia, unspecified; N18.32 Chronic kidney disease, stage 3b; R68.89 Other general symptoms and signs
CPT/HCPCS: 80053

== ENCOUNTER 2022-12-17 18:37 | Outpatient (REF) | payer OTHER, MEDICAID, SELFPAY ==
[2022-12-17 19:33] LABS: Abs Immature Grans 0.01 10^3/uL (0.0-0.06); Absolute Basophil Count 0.03 10^3/uL (0.0-0.2); Absolute Eosinophil Count 0.18 10^3/uL (0.0-0.7); Absolute Lymphocyte Count 1.41 10^3/uL (1.2-3.4); Basophils % 0.5; Eosinophils % 3.1; HCT 32.3 % (36.0-46.0); HGB 10.4 g/dL (11.2-15.7); Immature Grans % 0.2; Lymphocytes % 24.6; MCH 29.1 pg (27.0-33.0); MCHC 32.2 % (32.0-36.0); MCV 90 fL (80-95); MPV 11.6 fL (8.0-11.0); Neutrophils % 64.6; Platelet Count 176 10^3/uL (130-400); RBC 3.58 10^6/uL (3.93-5.22); RDW 14.2 % (11.7-14.6); RDW-SD 47.4 fL; WBC 5.73 10^3/uL (4.4-10.8)
[2022-12-17 20:01] LABS: ALT 20 U/L (14-59); AST 27 U/L (15-37); Albumin 3.4 g/dL (3.4-5.0); Alkaline Phosphatase 120 U/L (46-116); Anion Gap 9.2 mmol/L (3-11); BUN 30 mg/dL (7-18); Bilirubin, Total 0.4 mg/dL (0.2-1.0); CO2 29.8 mmol/L (21.0-32.0); CREATININE 1.5 mg/dL (0.55-1.02); Chloride 101 mmol/L (98-107); Estimated GFR 36.12 (mL/min/1.73m2); Glucose 181 mg/dL (74-106); NT-proBNP 199 pg/mL (<300); Potassium 3.7 mmol/L (3.5-5.1); Sodium 140 mmol/L (136-145); Total Protein 7.3 g/dL (6.4-8.2)
== END 2022-12-17 18:38 | disposition home or self-care (01) ==
LOC: LBN 18:37
PROVIDERS: PCP Nurse Practitioner; Visit Provider Nurse Practitioner Gerontology
DX: N18.32 Chronic kidney disease, stage 3b (principal); R60.0 Localized edema; J44.9 Chronic obstructive pulmonary disease, unspecified; R68.89 Other general symptoms and signs; E11.9 Type 2 diabetes mellitus without complications; R06.89 Other abnormalities of breathing
CPT/HCPCS: 80053; 83880; 85025

== ENCOUNTER 2023-01-14 01:10 | Outpatient (CLI) | payer OTHER, MEDICAID, SELFPAY ==
--- NOTE | 2023-01-14 | DI.CT_ITS ---
Exam(s) CT ABDOMEN PELVIS W EXAM: CT ABDOMEN PELVIS W CLINICAL HISTORY: DX AAA, HERNIA TECHNIQUE: Imaging Protocol: Axial computed tomography images with coronal and sagittal reformatted images were created and reviewed CONTRAST MATERIAL: Intravenous: Omnipaque 350 Contrast volume:100 mL Oral: Yes COMPARISON: CT CT THORAX ABD/PEL CTA from 02/16/2022 FINDINGS: ABDOMEN: Lung Bases: Normal where visualized. Liver: Normal density. No measurable mass. Portal, Superior Mesenteric, and Splenic Veins: Unremarkable. Gallbladder and Biliary Tract: Gallstones are present. There is no biliary ductal dilatation. Pancreas: There is fatty atrophy of the pancreas. Spleen: Normal. Adrenals: No masses seen. Kidneys: Normal size, contour and axis. No radiodense stones or obstructive uropathy. No masses seen. Abdominal Aorta: Abdominal portion non-dilated. Atherosclerosis. The left common iliac artery measur es 1.8 cm. Bowel: There is diverticulosis of the colon, but no evidence of acute diverticulitis. There is again seen midline anterior abdominal wall hernia/diastasis containing unremarkable loops of small and lar ge bowel. No evidence of bowel obstruction. No evidence of appendicitis. Peritoneal Cavity: No ascites, collection or mesenteric inflammatory response. No free air. Lymph Nodes: Within normal limits. Bones: Within normal limits for the patient's age. Soft Tissues: Unremarkable. PELVIS: Bladder: Symmetric distention, no gross wall thickening. Reproductive Organs: Unremarkable as visualized. Lymph Nodes: Within normal limits. Bones: Within normal limits for the patient's age. IMPRESSION: 1. No acute abdominal or pelvic process. 2. Stable findings in the abdomen and pelvis as described above. RADIATION DOSE DELIVERED: 1,483.96mGy.cm Total DLP DATA REPOSITORY: All CT scans at this facility are submitted to the National Radiology Data Registry (NRDR) Dose Index Registry (DIR) with the [employer] (ACR). RADIATION OPTIMIZATION: All CT scans at this facility use at least one of these dose optimization te chniques: automated exposure control; mA and/or kV adjustment per patient size (includes targeted exa ms where dose is matched to clinical indication); or iterative reconstruction.
[2023-01-14] MEDS: Barium Sulfate 2% W/V-Berry Smoothie 450 ML BTL 900 ML PO (08:06)
[2023-01-14 09:18] LABS: CREATININE 1.3 mg/dL (0.55-1.02); Estimated GFR 42.88 (mL/min/1.73m2)
[2023-01-14] MEDS: Normal Saline - Diluent 50 ML VIAL IJ (10:46)
[2023-01-14] MEDS: Omnipaque 350 MG/ML 500 ML BTL-Imaging package IJ (10:47)
== END 2023-01-14 01:30 ==
PROVIDERS: PCP Nurse Practitioner; Visit Provider Nurse Practitioner Gerontology
DX: Z01.812 Encounter for preprocedural laboratory examination (principal); I71.40 Abdominal aortic aneurysm, without rupture, unspecified; K80.20 Calculus of gallbladder without cholecystitis without obstruction; K86.89 Other specified diseases of pancreas; K43.9 Ventral hernia without obstruction or gangrene
CPT/HCPCS: 74177; 82565

== ENCOUNTER 2023-01-29 16:01 | Outpatient (REF) | payer OTHER, MEDICAID, SELFPAY ==
[2023-01-29 16:46] LABS: Abs Immature Grans 0.01 10^3/uL (0.0-0.06); Absolute Basophil Count 0.01 10^3/uL (0.0-0.2); Absolute Eosinophil Count 0.24 10^3/uL (0.0-0.7); Absolute Lymphocyte Count 1.41 10^3/uL (1.2-3.4); Absolute Monocyte Count 0.43 10^3/uL (0.1-0.8); Absolute Neutrophil Count 4.49 10^3/uL (1.2-6.7); Basophils % 0.2; Eosinophils % 3.6; HGB 10.8 g/dL (11.2-15.7); Immature Grans % 0.2; Lymphocytes % 21.4; MCH 28.5 pg (27.0-33.0); MCHC 31.8 % (32.0-36.0); MCV 90 fL (80-95); MPV 11.7 fL (8.0-11.0); Monocytes % 6.5; Neutrophils % 68.1; Platelet Count 161 10^3/uL (130-400); RBC 3.79 10^6/uL (3.93-5.22); RDW 14.4 % (11.7-14.6); RDW-SD 47.1 fL; WBC 6.59 10^3/uL (4.4-10.8)
[2023-01-29 17:08] LABS: Hemoglobin A1C 6.7 % (<5.7)
[2023-01-29 17:19] LABS: ALT 15 U/L (14-59); AST 14 U/L (15-37); Albumin 3.2 g/dL (3.4-5.0); Alkaline Phosphatase 119 U/L (46-116); Anion Gap 7.8 mmol/L (3-11); BUN 27 mg/dL (7-18); Bilirubin, Total 0.3 mg/dL (0.2-1.0); CO2 31.2 mmol/L (21.0-32.0); CREATININE 1.3 mg/dL (0.55-1.02); Calcium 8.9 mg/dL (8.5-10.1); Chloride 103 mmol/L (98-107); Estimated GFR 42.88 (mL/min/1.73m2); Glucose 138 mg/dL (74-106); NT-proBNP 176 pg/mL (<300); Potassium 3.6 mmol/L (3.5-5.1); Sodium 142 mmol/L (136-145); Total Protein 6.9 g/dL (6.4-8.2)
== END 2023-01-29 16:02 | disposition home or self-care (01) ==
LOC: LBN 16:01
PROVIDERS: PCP Nurse Practitioner; Visit Provider Nurse Practitioner Gerontology
DX: E11.9 Type 2 diabetes mellitus without complications (principal); E03.9 Hypothyroidism, unspecified; R60.0 Localized edema; E78.5 Hyperlipidemia, unspecified; R06.89 Other abnormalities of breathing
CPT/HCPCS: 80053; 83036; 83880; 84443; 85025

== ENCOUNTER 2023-02-08 18:58 | Emergency (ER) | payer OTHER, MEDICAID, SELFPAY ==
--- NOTE | 2023-02-08 18:59 | ED.GENADUL_ITS ---
Discharge Plan Disposition Patient Disposition: Group Home Facility(SNF) Discharge Details Clinical Impression: Choking episode Primary Care Provider: Kathleen Azevedo ED Provider: Richard Verdugo and New Rx's Prescriptions: No Action pantoprazole 40 mg tablet,delayed release (DR/EC) 40 mg PO DAILY polyethylene glycol 3350 [Miralax] 17 gram/dose powder 17 g PO DIRECTED PRN albuterol sulfate [ProAir HFA] 90 mcg/actuation HFA aerosol inhaler 2 puff inhalation 6XD PRN furosemide [Lasix] 20 mg tablet 40 mg PO DAILY apixaban 2.5 mg tablet 2.5 mg PO BID Incruse Ellipta 62.5 mcg/actuation blister with device 1 inh inhalation DAILY glycopyrrolate 1 mg tablet 0.5 mg PO BID hydrocortisone 2.5 % cream 1 applic topical BID ketoconazole 2 % cream 1 applic topical BID lidocaine 4 % adhesive patch,medicated 1 patch topical DAILY Rx Instructions: Remove at bedtime acetaminophen 500 mg capsule 500 mg PO BID PRN (Reason: pain) Nicotrol 10 mg cartridge 1 inh inhalation 4-6XD PRN psyllium Powder 1 tbsp PO DAILY PRN Rx Instructions: mix into at least 8 oz of water or juice before administering levothyroxine 88 mcg tablet 88 mcg PO DAILY aripiprazole 10 mg tablet 10 mg PO QHS acetaminophen [Mapap Arthritis Pain] 650 mg Tablet Extended Release 650 mg PO BID cholecalciferol (vitamin D3) 25 mcg (1,000 unit) tablet 2,000 unit PO DAILY Patient Comments: Take 2 tablet by mouth once a day amlodipine 2.5 mg tablet 2.5 mg PO DAILY Patient Comments: Take 1 tablet by mouth once a day budesonide-formoterol [Symbicort] 160-4.5 mcg/actuation HFA aerosol inhaler 2 puff INHALATION BID Patient Comments: Inhale 2 puff as directed twice a day ascorbic acid (vitamin C) [Vitamin C] 500 mg Tablet 1,000 mg PO BID Qty: 60 0RF Discharge Instructions Additional Instructions: You were seen in the ED after a choking episode while eating tonight. Evaluation here is reassuring with normal vital signs and oxygen saturation, clear lungs and no complaints. Return to ED if you develop any increased cough, trouble breathing, chest pain, fever. Medical Decision Making Patient arrives status post choking event with no complaints. She has normal voice, no stridor, no wheezing or adventitious breath sounds. She has no complaint of and feels fine. Her oxygen saturations are normal. No indication for chest x-ray at this time. Should return to ED if she develops any fever, increased cough, shortness of breath, chest pain. HPI General Mode of arrival: EMS . Date/Time Provider Initiated Documentation: 02/08/23 18:59 . Information obtained by: patient and EMS . HPI Narrative: Patient brought in by EMS for evaluation of choking episode at [facility]. By report patient was eating potato. She choked on her food. By report Heimlich was performed. Patient arrives here with no complaints. She denies any difficulty breathing at this time. She has no chest pain. She has no residual cough. Related Data Home Medications Medication Instructions Recorded Confirmed acetaminophen 650 mg 650 mg PO BID 01/01/21 11/20/22 tablet,extended release (Mapap Arthritis Pain) ascorbic acid (vitamin C) 500 mg 1,000 mg PO BID #60 tabs 10/21/21 11/20/22 tablet (Vitamin C) cholecalciferol (vitamin D3) 25 2,000 unit PO DAILY 01/24/22 11/20/22 mcg (1,000 unit) tablet amlodipine 2.5 mg tablet 2.5 mg PO DAILY 02/16/22 11/20/22 budesonide-formoterol HFA 160 2 puff inhalation BID 02/16/22 11/20/22 mcg-4.5 mcg/actuation aerosol inhaler (Symbicort) albuterol sulfate 90 mcg/actuation 2 puff inhalation 6XD PRN 03/13/22 11/20/22 aerosol inhaler (ProAir HFA) pantoprazole 40 mg tablet,delayed 40 mg PO DAILY 05/22/22 11/20/22 release polyethylene glycol 3350 17 17 g PO DIRECTED PRN 05/22/22 11/20/22 gram/dose oral powder (Miralax) psyllium 1 tbsp PO DAILY PRN 07/25/22 11/20/22 acetaminophen 500 mg capsule 500 mg PO BID PRN pain 09/19/22 09/19/22 apixaban 2.5 mg tablet 2.5 mg PO BID 09/19/22 11/20/22 glycopyrrolate 1 mg tablet 0.5 mg PO BID 09/19/22 11/20/22 hydrocortisone 2.5 % topical cream 1 applic topical BID 09/19/22 09/19/22 ketoconazole 2 % topical cream 1 applic topical BID 09/19/22 09/19/22 lidocaine 4 % topical patch 1 patch topical DAILY 09/19/22 09/19/22 nicotine 10 mg inhalation 1 inh inhalation 4-6XD PRN 09/19/22 09/19/22 cartridge (Nicotrol) umeclidinium 62.5 mcg/actuation 1 inh inhalation DAILY 09/19/22 11/20/22 blister powder for inhalation (Incruse Ellipta) aripiprazole 10 mg tablet 10 mg PO QHS 09/24/22 11/20/22 levothyroxine 88 mcg tablet 88 mcg PO DAILY 09/24/22 11/20/22 furosemide 20 mg tablet (Lasix) 40 mg PO DAILY 11/20/22 11/20/22 Previous Rx's Medication Instructions Recorded ascorbic acid (vitamin C) 500 mg 1,000 mg PO BID #60 tabs 10/21/21 tablet (Vitamin C) Allergies Allergy/AdvReac Type Severity Reaction Status Date / Time Penicillins Allergy Intermediate Swelling/Ed Verified 02/08/23 19:14 demond Bees Allergy Uncoded 02/08/23 19:14 General KAYA: 2 Review of Systems Narrative: Per HPI PFSH All Active Problems (Updated 02/08/23 @ 19:20 by Richard Verdugo MD) Choking episode (Acute) Full code status (Acute) Infiltrate of lung present on imaging of chest (Acute) Onychomycosis (Acute) Nicotine dependence, cigarettes, uncomplicated (Acute) COPD (chronic obstructive pulmonary disease) (Chronic) Falls frequently (Acute) Palliative care status (Acute) Hypoxemia (Acute) Cellulitis (Acute) Respiratory failure with hypoxia (Acute) Noncompliance with medication regimen (Acute) Pain, joint, knee, right (Acute) Fall (Acute) Blunt head trauma (Acute) Blunt injury of back (Acute) Fall (Acute) Contusion (Acute) Auditory hallucination (Acute) DVT prophylaxis (Acute) Diverticulosis (Chronic) Cholelithiasis (Chronic) Nausea vomiting and diarrhea (Acute) Constipation (Chronic) Memory impairment (Chronic) 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) Osteoarthritis of right knee (Chronic) Medical History Ambulatory dysfunction Aneurysm of infrarenal abdominal aorta Chronic anticoagulation CKD (chronic kidney disease) stage 3, GFR 30-59 ml/min COPD (chronic obstructive pulmonary disease) Failure to thrive in adult Fracture of both ankles Hallucinations Hearing loss History of blood transfusion Hx of hyperlipidemia Hypertension Hypothyroidism Non-insulin dependent diabetes mellitus Obesity Pulmonary embolism Seborrheic keratosis Smoker Surgical History History of bilateral tubal ligation History of hernia repair Family History Father Diabetes Social History Smoking/Tobacco Use Status: Current every day Tobacco Type: cigarettes Years smoked: 58 Tobacco: How many years used: 15 Counseling given: provider counseling and support medications Smoking risk assessment performed?: Yes Alcohol Intake: never Drug use: Never Substance use type: does not use Household members: none Housing: apartment Number of Children: 3 number of grandchildren: 1 What is your relationship status?: Panel score (0-1 are the most socially isolated patients): 0 What type of physical activity do you participate in: walking Seatbelt use: always Do you feel safe at home: Yes Do you feel safe in your relationship?: Yes Exam Narrative Exam Narrative: Const: Obese elderly female in NAD. HEENT: NC/AT. Normal facial exam. Neck: Supple. Trachea midline. No stridor. Normal voice Lungs: Normal respiratory effort. Lungs are clear. No wheezing, no rhonchi, normal breath sounds. Cor: RRR without murmur/gallop Neuro: Awake, alert, oriented x2. Somewhat confused. Normal speech. Cranial nerves II - XII grossly intact. No gross motor or sensory deficit.
[2023-02-08 19:01] VITALS: BP 110/93; PULSE 85; RESP 20; TEMP 36.7; O2SAT 97
[2023-02-08 20:20] VITALS: BP 112/65; PULSE 78; RESP 20; TEMP 36.5; O2SAT 95
--- NOTE | 2023-02-08 20:28 | NUR.NOTE ---
2000-x1 assist to the bedside commode. Voided. Clean brief on.
== END 2023-02-08 20:29 | disposition skilled nursing facility (03) ==
PROVIDERS: Emergency Provider Emergency Medicine; PCP Nurse Practitioner
DX: T17.928A Food in respiratory tract, part unspecified causing other injury, initial encounter (principal)
CPT/HCPCS: 99281; 99282

== ENCOUNTER 2023-02-15 10:31 | Outpatient (CLI) | payer OTHER, MEDICAID, SELFPAY ==
--- NOTE | 2023-02-15 09:30 | DI.RAD_ITS ---
Exam(s) XR KNEE RT 2V AP,LAT EXAM: XR KNEE RT 2V AP,LAT CLINICAL HISTORY: RIGHT KNEE PAIN. TECHNIQUE: 2D digital imaging was performed. Three views. COMPARISON: CR XR KNEE RT 3V AP,LAT,ROSEANN from 08/31/2021 CR XR KNEE LT 2V AP,LAT from 02/15/2023 FINDINGS: BONES: No acute fracture is present. No bony destructive lesion is seen. JOINTS: Moderate narrowing of the femoral tibial joint spaces greater medially. Multiple loose niels s again noted. Prominent periarticular spurring throughout. SOFT TISSUE: Normal. IMPRESSION: Tricompartmental degenerative changes and multiple loose bodies. DATA REPOSITORY: RADIATION DOSE DELIVERED:
--- NOTE | 2023-02-15 09:30 | DI.RAD_ITS ---
Exam(s) XR KNEE LT 2V AP,LAT EXAM: XR KNEE LT 2V AP,LAT CLINICAL HISTORY: OA LEFT KNEE. TECHNIQUE: 2D digital imaging was performed. Three views. COMPARISON: CR XR KNEE RT 3V AP,LAT,ROSEANN from 08/31/2021 FINDINGS: BONES: No acute fracture is present. No bony destructive lesion is seen. JOINTS: Mild narrowing medial femoral tibial joint space. [id number] periarticular spurring th roughout. Few joint space loose bodies are seen. No joint effusion is seen. SOFT TISSUE: Normal. IMPRESSION: [id number] degenerative changes and joint space loose bodies. DATA REPOSITORY: RADIATION DOSE DELIVERED:
== END 2023-02-15 10:32 | disposition home or self-care (01) ==
LOC: DIORS 10:32
PROVIDERS: PCP Nurse Practitioner; Referring Provider Nurse Practitioner; Visit Provider Student in an Organized Health Care Education/Training Program
DX: M17.12 Unilateral primary osteoarthritis, left knee (principal); M17.11 Unilateral primary osteoarthritis, right knee; M23.41 Loose body in knee, right knee; M23.42 Loose body in knee, left knee
CPT/HCPCS: 20610; 73560; J1040

== ENCOUNTER 2023-02-20 16:31 | Outpatient (REF) | payer OTHER, MEDICAID, SELFPAY ==
[2023-02-20 17:48] LABS: Abs Immature Grans 0.05 10^3/uL (0.0-0.06); Absolute Basophil Count 0.03 10^3/uL (0.0-0.2); Absolute Lymphocyte Count 0.97 10^3/uL (1.2-3.4); Absolute Neutrophil Count 13.02 10^3/uL (1.2-6.7); Basophils % 0.2; HCT 37.9 % (36.0-46.0); Immature Grans % 0.3; Lymphocytes % 6.6; MCH 27.6 pg (27.0-33.0); MCHC 31.7 % (32.0-36.0); MCV 87 fL (80-95); MPV 11.7 fL (8.0-11.0); Monocytes % 4.4; Neutrophils % 88.5; Platelet Count 204 10^3/uL (130-400); RBC 4.35 10^6/uL (3.93-5.22); RDW-SD 47.9 fL; WBC 14.71 10^3/uL (4.4-10.8)
[2023-02-20 17:50] LABS: Absolute Monocyte Count 0.65 10^3/uL (0.1-0.8)
[2023-02-20 18:04] LABS: ALT 33 U/L (14-59); AST 22 U/L (15-37); Albumin 3.5 g/dL (3.4-5.0); Alkaline Phosphatase 120 U/L (46-116); Anion Gap 12.1 mmol/L (3-11); BUN 36 mg/dL (7-18); Bilirubin, Total 0.6 mg/dL (0.2-1.0); CO2 28.9 mmol/L (21.0-32.0); CREATININE 1.7 mg/dL (0.55-1.02); Calcium 9.5 mg/dL (8.5-10.1); Chloride 98 mmol/L (98-107); Estimated GFR 31.08 (mL/min/1.73m2); Glucose 259 mg/dL (74-106); NT-proBNP 565 pg/mL (<300); Potassium 3.8 mmol/L (3.5-5.1); Sodium 139 mmol/L (136-145); Total Protein 7.8 g/dL (6.4-8.2)
== END 2023-02-20 16:32 | disposition home or self-care (01) ==
LOC: LBN 16:31
PROVIDERS: PCP Nurse Practitioner; Visit Provider Nurse Practitioner Gerontology
DX: R68.89 Other general symptoms and signs (principal)
CPT/HCPCS: 80053; 83880; 85025

== ENCOUNTER 2023-02-21 12:51 | Emergency (ER) | payer OTHER, MEDICAID, SELFPAY ==
[2023-02-21] VITALS (18 sets, daily range): BP systolic 97–155; BP diastolic 67–101; PULSE 52–145; RESP 2–40; TEMP 37.2; O2SAT 87–94
--- NOTE | 2023-02-21 12:45 | RT.EKG_ITS ---
APPROVED REPORT Exam: Resting ECG Reason for Exam: sob Patient Location: E HR:134 bpm ECG Measurements Heart Rate 134 AXIS AR 123 P 74 QRSd 129 QRS -85 QT 319 T 45 QTc 477 Conclusion Sinus tachycardia...rate> 99 RBBB and LAFB...QRSd >120mS, axis(-40,240) ST elevation, consider inferior injury...ST >0.08mV, II III aVF. Sinus. Widended QRS. RBBB, LAFB. No STEMI. I have reviewed and interpreted ECG and agree with software generated interpretation.
--- NOTE | 2023-02-21 12:58 | W.ED.GENAD ---
Discharge Plan Disposition Patient Disposition: Transfer-Acute Inpatient Care Specific Acute Inpt Facility: [place] Condition: Critical Discharge Details Clinical Impression: Acute respiratory failure with hypoxia and hypercarbia, Pneumonia, Acute kidney injury superimposed on chronic kidney disease, Lactic acidosis Primary Care Provider: Kathleen Azevedo ED Provider: Tiff Gould Home Meds and New Rx's Prescriptions: No Action pantoprazole 40 mg tablet,delayed release (DR/EC) 40 mg PO DAILY polyethylene glycol 3350 [Miralax] 17 gram/dose powder 17 g PO DIRECTED PRN albuterol sulfate [ProAir HFA] 90 mcg/actuation HFA aerosol inhaler 2 puff inhalation 6XD PRN furosemide [Lasix] 20 mg tablet 60 mg PO BID apixaban 2.5 mg tablet 2.5 mg PO BID Incruse Ellipta 62.5 mcg/actuation blister with device 1 inh inhalation DAILY glycopyrrolate 1 mg tablet 0.5 mg PO BID hydrocortisone 2.5 % cream 1 applic topical BID Patient Comments: not on list ketoconazole 2 % cream 1 applic topical BID Patient Comments: not on list lidocaine 4 % adhesive patch,medicated 1 patch topical QAM Rx Instructions: Remove at bedtime acetaminophen 500 mg capsule 500 mg PO BID PRN (Reason: pain) Nicotrol 10 mg cartridge 1 inh inhalation 4-6XD PRN Patient Comments: not on list psyllium Powder 1 tbsp PO DAILY PRN Rx Instructions: mix into at least 8 oz of water or juice before administering levothyroxine 88 mcg tablet 125 mcg PO HS aripiprazole 10 mg tablet 10 mg PO QHS acetaminophen [Mapap Arthritis Pain] 650 mg Tablet Extended Release 650 mg PO BID cholecalciferol (vitamin D3) 25 mcg (1,000 unit) tablet 4,000 unit PO DAILY Patient Comments: Take 2 tablet by mouth once a day amlodipine 2.5 mg tablet 2.5 mg PO DAILY Patient Comments: Take 1 tablet by mouth once a day budesonide-formoterol [Symbicort] 160-4.5 mcg/actuation HFA aerosol inhaler 2 puff INHALATION BID Patient Comments: Inhale 2 puff as directed twice a day sulfamethoxazole-trimethoprim 800-160 mg Tablet 1 tab PO DAILY prednisone 20 mg Tablet 40 mg PO DAILY ascorbic acid (vitamin C) [Vitamin C] 500 mg Tablet 1,000 mg PO BID Qty: 60 0RF tramadol 50 mg tablet 50 mg PO DAILY Incruse Ellipta 62.5 mcg/actuation blister with device 1 inh INHALATION DAILY Discharge Data Discharge Date/Time-TO BE ENTERED AT DEPARTURE: 02/21/23 17:25 Medical Decision Making 1300 -- 77-year-old female who is a full code with a history of COPD, morbid obesity, diabetes, pulmonary embolism, CKD, hypertension, hyperlipidemia presents from the [facility] for shortness of breath and hypoxia with oxygen saturations low 90s on room air. They reported she had a choking episode on 02/08/23. EMS reported that her oxygen saturation was 81% on 5 L nasal cannula. Patient is morbidly obese. Oxygen saturations 89% on 5 L nasal cannula on arrival. Heart rate 137 with interventricular conduction delay but no obvious STEMI on EKG. she is tachypneic and has crackles throughout but does not appear in significant respiratory distress. No significant lower extremity edema. She has an obese abdomen with a large ventral hernia but no evidence of cellulitis. Differential diagnosis includes pneumonia, COVID, influenza, RSV, acute COPD, acute CHF, PE. Will give Xopenex, 125 Solu-Medrol IV and 40 mg IV Lasix. Respiratory bedside and will initiate BiPAP with nebs. 1400 --Labs reviewed. White blood cell count 9. Lactate 3.8. Creatinine 3.2, was 1.7 yesterday. Troponin negative. BNP 1392. ABG notes a pH of 7.2, PCO2 56, PO2 77. She is currently on 03/07 at 55% FiO2. COVID pending. Chest x-ray notes a right lower lobe infiltrate. She has an allergy to penicillin which causes edema. Will initiate vancomycin and aztreonam. Had ordered a CT chest but with her GURINDER and with suspicion more for infectious process, right lower lobe pneumonia, will cancel. Discussed with nursing supervisor assembly department and hospitalist and there are no ICU beds available. [facility] transfer initiated. 1500 --Case discussed with [facility] --patient excepted for transfer. Accepting physician Dr. Butt. He would like high flow nasal cannula if possible and recommends 30 cc/kg IV fluid bolus. Review of records notes that she has taken a cephalosporin in the past and would like ceftriaxone and either azithromycin or doxycycline IV for additional antibiotic coverage. We will cancel aztreonam IV. 1615 --patient more tachypneic, declining mental status. Discussed with [facility] and they would feel more comfortable with intubation prior to transfer. Intubation procedure primarily managed by [facility] crew. Intubation done with RSI with etomidate and aleida. I attempted first-pass look with portable glide scope and unable to pass tube. [facility] nurse able to pass tube on second attempt with use of portable glide scope. Patient tolerated procedure well. Postintubation chest x-ray noted ET tube in appropriate place. She does however have worsening bilateral pneumonia. Medical Records Medical records reviewed: Yes I reviewed the patient's medical records. Imaging Data Radiologic Study: Radiologist's impression: ?XR PORTABLE CHEST AP CLINICAL HISTORY: ? sob, r/o acute disease. ? TECHNIQUE:? 2D digital imaging was performed. COMPARISON:? CR,XR XR CHEST 2V PA ? LATERAL from 02/11/[address] ABDOMEN ? PELVIS W from 01/14/2023 FINDINGS: Single AP portable view. Heart size is upper normal.? The mediastinum is not widened. There is infiltrate in the right lower lobe.? Left lung clear.? No pleural effusions.? No pulmonary edema. IMPRESSION: Right lower lobe infiltrate.? No obvious pleural effusions evident on this portable view. Lab Data Lab results reviewed: Yes I reviewed the patient's lab results. Labs: 02/21/23 14:50 Blood Blood Culture - Pending 02/21/23 13:35 Blood Blood Culture - Pending Laboratory Tests Range/Units 02/21/23 02/21/23 02/21/23 13:22 13:25 13:25 WBC (4.4-10.8) 10^3/uL 9.48 RBC (3.93-5.22) 10^6/uL 4.74 Hgb (11.2-15.7) g/dL 13.0 Hct (36.0-46.0) % 40.6 MCV (80-95) fL 86 MCH (27.0-33.0) pg 27.4 MCHC (32.0-36.0) % 32.0 RDW (11.7-14.6) % 15.2 H Plt Count (130-400) 10^3/uL 250 MPV (8.0-11.0) fL 11.7 H Immature Gran % See Differential Neutrophils % 64.0 Band Neutrophils % 6 Lymphocytes % 15.0 Monocytes % 9.0 Eosinophils % 3.0 Basophils % 2.0 Metamyelocytes % 1 Nucleated RBC % (0.0-0.3) % 0.0 Absolute Neutrophils (1.2-6.7) 10^3/uL 6.64 Absolute Lymphocytes (1.2-3.4) 10^3/uL 1.42 Absolute Monocytes (0.1-0.8) 10^3/uL 0.85 H Absolute Eosinophils (0.0-0.7) 10^3/uL 0.28 Absolute Basophils (0.0-0.2) 10^3/uL 0.19 RBC Morphology Normal ABG Sample Site ABG pH (7.35-7.45) ABG pCO2 (35-45) mmHg ABG pO2 (80-105) mmHg ABG HCO3 (22-26) mmol/L ABG Total CO2 (23-27) mmol/L ABG O2 Saturation (95-98) % ABG Base Excess (-2-3) mmol/L VBG Lactate (0.6-1.4) mmol/L FiO2 % Sodium (136-145) mmol/L 134 L Potassium (3.5-5.1) mmol/L 5.3 H D Chloride (98-107) mmol/L 94 L Carbon Dioxide (21.0-32.0) mmol/L 25.6 Anion Gap (3-11) mmol/L 14.4 H BUN (7-18) mg/dL 67 H Creatinine (0.55-1.02) mg/dL 3.2 H D Est GFR (CKD-EPI 2020) (mL/min/1.73m2) 14.55 Glucose (74-106) mg/dL 288 H Calcium (8.5-10.1) mg/dL 9.6 Magnesium (1.8-2.4) mg/dL 2.6 H Total Bilirubin (0.2-1.0) mg/dL 0.7 AST (15-37) U/L 38 H ALT (14-59) U/L 40 Alkaline Phosphatase (46-116) U/L 117 H Troponin I (<or=60) ng/L < 50 NT-Pro-B Natriuret Pep Cancelled 1392 H Total Protein (6.4-8.2) g/dL 9.1 H Albumin (3.4-5.0) g/dL 3.2 L Procalcitonin ng/mL COVID-19 Source SARS-CoV-2 (PCR) (Negative) Influenza Type A (PCR) (Negative) Influenza Type B (PCR) (Negative) RSV (PCR) (Negative) Range/Units 02/21/23 02/21/23 02/21/23 13:25 14:26 14:50 WBC (4.4-10.8) 10^3/uL RBC (3.93-5.22) 10^6/uL Hgb (11.2-15.7) g/dL Hct (36.0-46.0) % MCV (80-95) fL MCH (27.0-33.0) pg MCHC (32.0-36.0) % RDW (11.7-14.6) % Plt Count (130-400) 10^3/uL MPV (8.0-11.0) fL Immature Gran % Neutrophils % Band Neutrophils % Lymphocytes % Monocytes % Eosinophils % Basophils % Metamyelocytes % Nucleated RBC % (0.0-0.3) % Absolute Neutrophils (1.2-6.7) 10^3/uL Absolute Lymphocytes (1.2-3.4) 10^3/uL Absolute Monocytes (0.1-0.8) 10^3/uL Absolute Eosinophils (0.0-0.7) 10^3/uL Absolute Basophils (0.0-0.2) 10^3/uL RBC Morphology ABG Sample Site Right Radial ABG pH (7.35-7.45) 7.28 L ABG pCO2 (35-45) mmHg 56 H ABG pO2 (80-105) mmHg 77 L ABG HCO3 (22-26) mmol/L 26 ABG Total CO2 (23-27) mmol/L 24 ABG O2 Saturation (95-98) % 93 L ABG Base Excess (-2-3) mmol/L -1 VBG Lactate (0.6-1.4) mmol/L 3.8 H* FiO2 % 55 Sodium (136-145) mmol/L Potassium (3.5-5.1) mmol/L Chloride (98-107) mmol/L Carbon Dioxide (21.0-32.0) mmol/L Anion Gap (3-11) mmol/L BUN (7-18) mg/dL Creatinine (0.55-1.02) mg/dL Est GFR (CKD-EPI 2020) (mL/min/1.73m2) Glucose (74-106) mg/dL Calcium (8.5-10.1) mg/dL Magnesium (1.8-2.4) mg/dL Total Bilirubin (0.2-1.0) mg/dL AST (15-37) U/L ALT (14-59) U/L Alkaline Phosphatase (46-116) U/L Troponin I (<or=60) ng/L NT-Pro-B Natriuret Pep Total Protein (6.4-8.2) g/dL Albumin (3.4-5.0) g/dL Procalcitonin ng/mL 2.5 COVID-19 Source SARS-CoV-2 (PCR) (Negative) Influenza Type A (PCR) (Negative) Influenza Type B (PCR) (Negative) RSV (PCR) (Negative) Range/Units 02/21/23 15:00 WBC (4.4-10.8) 10^3/uL RBC (3.93-5.22) 10^6/uL Hgb (11.2-15.7) g/dL Hct (36.0-46.0) % MCV (80-95) fL MCH (27.0-33.0) pg MCHC (32.0-36.0) % RDW (11.7-14.6) % Plt Count (130-400) 10^3/uL MPV (8.0-11.0) fL Immature Gran % Neutrophils % Band Neutrophils % Lymphocytes % Monocytes % Eosinophils % Basophils % Metamyelocytes % Nucleated RBC % (0.0-0.3) % Absolute Neutrophils (1.2-6.7) 10^3/uL Absolute Lymphocytes (1.2-3.4) 10^3/uL Absolute Monocytes (0.1-0.8) 10^3/uL Absolute Eosinophils (0.0-0.7) 10^3/uL Absolute Basophils (0.0-0.2) 10^3/uL RBC Morphology ABG Sample Site ABG pH (7.35-7.45) ABG pCO2 (35-45) mmHg ABG pO2 (80-105) mmHg ABG HCO3 (22-26) mmol/L ABG Total CO2 (23-27) mmol/L ABG O2 Saturation (95-98) % ABG Base Excess (-2-3) mmol/L VBG Lactate (0.6-1.4) mmol/L FiO2 % Sodium (136-145) mmol/L Potassium (3.5-5.1) mmol/L Chloride (98-107) mmol/L Carbon Dioxide (21.0-32.0) mmol/L Anion Gap (3-11) mmol/L BUN (7-18) mg/dL Creatinine (0.55-1.02) mg/dL Est GFR (CKD-EPI 2020) (mL/min/1.73m2) Glucose (74-106) mg/dL Calcium (8.5-10.1) mg/dL Magnesium (1.8-2.4) mg/dL Total Bilirubin (0.2-1.0) mg/dL AST (15-37) U/L ALT (14-59) U/L Alkaline Phosphatase (46-116) U/L Troponin I (<or=60) ng/L NT-Pro-B Natriuret Pep Total Protein (6.4-8.2) g/dL Albumin (3.4-5.0) g/dL Procalcitonin ng/mL COVID-19 Source Nasopharynx SARS-CoV-2 (PCR) (Negative) Negative Influenza Type A (PCR) (Negative) Negative Influenza Type B (PCR) (Negative) Negative RSV (PCR) (Negative) Negative ECG Data Attestation: I personally reviewed and interpreted this ECG (s) as follows: Interpretation: rate of 134, widened qrs, intraventricular conduction delay. No obvious STEMI. HPI General Date/Time Provider Initiated Documentation: 02/21/23 12:56. Related Data Home Medications Medication Instructions Recorded Confirmed acetaminophen 650 mg 650 mg PO BID 01/01/21 02/21/23 tablet,extended release (Mapap Arthritis Pain) ascorbic acid (vitamin C) 500 mg 1,000 mg PO BID #60 tabs 10/21/21 02/21/23 tablet (Vitamin C) cholecalciferol (vitamin D3) 25 4,000 unit PO DAILY 01/24/22 02/21/23 mcg (1,000 unit) tablet amlodipine 2.5 mg tablet 2.5 mg PO DAILY 02/16/22 02/21/23 budesonide-formoterol HFA 160 2 puff inhalation BID 02/16/22 02/21/23 mcg-4.5 mcg/actuation aerosol inhaler (Symbicort) albuterol sulfate 90 mcg/actuation 2 puff inhalation 6XD PRN 03/13/22 02/21/23 aerosol inhaler (ProAir HFA) pantoprazole 40 mg tablet,delayed 40 mg PO DAILY 05/22/22 02/21/23 release polyethylene glycol 3350 17 17 g PO DIRECTED PRN 05/22/22 02/21/23 gram/dose oral powder (Miralax) psyllium 1 tbsp PO DAILY PRN 07/25/22 02/21/23 acetaminophen 500 mg capsule 500 mg PO BID PRN pain 09/19/22 02/21/23 apixaban 2.5 mg tablet 2.5 mg PO BID 09/19/22 02/21/23 glycopyrrolate 1 mg tablet 0.5 mg PO BID 09/19/22 02/21/23 hydrocortisone 2.5 % topical cream 1 applic topical BID 09/19/22 02/15/23 ketoconazole 2 % topical cream 1 applic topical BID 09/19/22 02/15/23 lidocaine 4 % topical patch 1 patch topical QAM 09/19/22 02/21/23 nicotine 10 mg inhalation 1 inh inhalation 4-6XD PRN 09/19/22 02/15/23 cartridge (Nicotrol) umeclidinium 62.5 mcg/actuation 1 inh inhalation DAILY 09/19/22 02/15/23 blister powder for inhalation (Incruse Ellipta) aripiprazole 10 mg tablet 10 mg PO QHS 09/24/22 02/21/23 levothyroxine 88 mcg tablet 125 mcg PO HS 09/24/22 02/21/23 furosemide 20 mg tablet (Lasix) 60 mg PO BID 11/20/22 02/21/23 tramadol 50 mg tablet 50 mg PO DAILY 02/08/23 02/21/23 umeclidinium 62.5 mcg/actuation 1 inh inhalation DAILY 02/08/23 02/21/23 blister powder for inhalation (Incruse Ellipta) prednisone 20 mg tablet 40 mg PO DAILY 02/21/23 02/21/23 sulfamethoxazole 800 1 tab PO DAILY 02/21/23 02/21/23 mg-trimethoprim 160 mg tablet Previous Rx's Medication Instructions Recorded ascorbic acid (vitamin C) 500 mg 1,000 mg PO BID #60 tabs 10/21/21 tablet (Vitamin C) Allergies Allergy/AdvReac Type Severity Reaction Status Date / Time Penicillins Allergy Intermediate Swelling/Ed Verified 02/15/23 09:25 demond Bees Allergy Uncoded 02/15/23 09:25 General KAYA: 3 Review of Systems Unobtainable due to mental status PFSH All Active Problems (Updated 02/21/23 @ 15:16 by Tiff Gould DO) Acute respiratory failure with hypoxia and hypercarbia (Acute) Pneumonia (Acute) Acute kidney injury superimposed on chronic kidney disease (Acute) Lactic acidosis (Acute) Left knee DJD (Acute) Choking episode (Acute) Full code status (Acute) Infiltrate of lung present on imaging of chest (Acute) Onychomycosis (Acute) Nicotine dependence, cigarettes, uncomplicated (Acute) COPD (chronic obstructive pulmonary disease) (Chronic) Falls frequently (Acute) Palliative care status (Acute) Hypoxemia (Acute) Cellulitis (Acute) Respiratory failure with hypoxia (Acute) Noncompliance with medication regimen (Acute) Pain, joint, knee, right (Acute) Fall (Acute) Blunt head trauma (Acute) Blunt injury of back (Acute) Fall (Acute) Contusion (Acute) Auditory hallucination (Acute) DVT prophylaxis (Acute) Diverticulosis (Chronic) Cholelithiasis (Chronic) Nausea vomiting and diarrhea (Acute) Constipation (Chronic) Memory impairment (Chronic) 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) Osteoarthritis of right knee (Chronic) 80 mg Depo-medrol injection: 02/15/23 Medical History Ambulatory dysfunction Aneurysm of infrarenal abdominal aorta Chronic anticoagulation CKD (chronic kidney disease) stage 3, GFR 30-59 ml/min COPD (chronic obstructive pulmonary disease) Failure to thrive in adult Fracture of both ankles Hallucinations Hearing loss History of blood transfusion Hx of hyperlipidemia Hypertension Hypothyroidism Non-insulin dependent diabetes mellitus Obesity Pulmonary embolism Seborrheic keratosis Smoker Surgical History History of bilateral tubal ligation History of hernia repair Family History Father Diabetes Social History Smoking/Tobacco Use Status: Current every day Tobacco Type: cigarettes Years smoked: 58 Tobacco: How many years used: 15 Counseling given: provider counseling and support medications Smoking risk assessment performed?: Yes Alcohol Intake: never Drug use: Never Substance use type: does not use Household members: none Housing: apartment Number of Children: 3 number of grandchildren: 1 What is your relationship status?: Panel score (0-1 are the most socially isolated patients): 0 What type of physical activity do you participate in: walking Seatbelt use: always Do you feel safe at home: Yes Do you feel safe in your relationship?: Yes Exam Const General: cooperative and no acute distress Nutritional Appearance: obese morbidly obese Orientation: alert and awake HENMT Head: normal to inspection Face and sinus: normal facial exam Eyes General: appearance normal, both eyes and all related structures Pupils: PERRL EOM: EOM intact bilaterally Neck Neck: normal visual inspection and No submandibular swelling Lymphatic: no lymphadenopathy noted Chest Chest: normal inspection of the chest and no tenderness Resp Auscultation: crackles bilaterally throughout and rhonchi upper bilaterally and lower bilaterally Cardio Rate: tachycardic Rhythm: regular rhythm GI Inspection: normal to inspection and obesity Palpation: soft, not firm, hernia ventral (no erythema), not rigid and nontender Auscultation: hypoactive bowel sounds Back/Spine/Pelvis Thoracic/Lumbar Spine: thoracic and lumbar spine normal to inspection Skin General skin exam: no rashes or lesions noted Neuro General: patient alert, patient awake and patient oriented x3 Cognition: normal cognition Speech: speech normal Motor: muscle tone normal throughout Sensory Exam: no sensory deficits noted Extrem General: no edema (no significant pitting lower extremity edema) Psych Appearance: grossly normal Mental Status: mental status grossly normal Speech and Movement: speech and movement normal Affect: normal affect Critical Care Time Critical Care Time Critical Care Time: Yes Total Critical Care Time: 120 Attestation: I spent 120 minutes of critical care time with this patient. This does not include time spent on separately reported billable procedures.
--- NOTE | 2023-02-21 13:15 | DI.RAD_ITS ---
Exam(s) XR PORTABLE CHEST AP EXAM: XR PORTABLE CHEST AP CLINICAL HISTORY: sob, r/o acute disease. TECHNIQUE: 2D digital imaging was performed. COMPARISON: CR,XR XR CHEST 2V PA LATERAL from 02/11/[address] ABDOMEN PELVIS W from 01/14/2023 FINDINGS: Single AP portable view. Heart size is upper normal. The mediastinum is not widened. There is infiltrate in the right lower lobe. Left lung clear. No pleural effusions. No pulmonary e francie. IMPRESSION: Right lower lobe infiltrate. No obvious pleural effusions evident on this portable view. DATA REPOSITORY: RADIATION DOSE DELIVERED:
[2023-02-21] MEDS: Levalbuterol 1.25 MG/3 ML UPD VIAL UPD ×2 (13:25→14:30)
[2023-02-21 13:35] LABS: HCT 40.6 % (36.0-46.0); MCH 27.4 pg (27.0-33.0); MCV 86 fL (80-95); MPV 11.7 fL (8.0-11.0); RBC 4.74 10^6/uL (3.93-5.22); RDW 15.2 % (11.7-14.6); RDW-SD 48.1 fL; WBC 9.48 10^3/uL (4.4-10.8)
[2023-02-21 13:38] LABS: Lactate 3.8 mmol/L (0.6-1.4)
[2023-02-21] MEDS: Furosemide 40 MG/4 ML VIAL IVP (13:44)
[2023-02-21 13:57] LABS: Absolute Basophil Count 0.19 10^3/uL (0.0-0.2); Absolute Eosinophil Count 0.28 10^3/uL (0.0-0.7); Absolute Lymphocyte Count 1.42 10^3/uL (1.2-3.4); Absolute Monocyte Count 0.85 10^3/uL (0.1-0.8); Absolute Neutrophil Count 6.64 10^3/uL (1.2-6.7); Bands % 6; Platelet Count 250 10^3/uL (130-400)
[2023-02-21 13:58] LABS: Diff Comment Manual Differential; Metamyelocytes % 1; RBC Morphology Normal
--- NOTE | 2023-02-21 14:00 | NUR.NOTE ---
Nursing Note: 16F alvarez catheter placed using aseptic technique. Pt tolerated well. Balloon inflated w/ 10ml sterile saline. approx 30ml clear, yellow urine obtained. Yissel BHAKTA and Elsy BRICE assisted.
[2023-02-21 14:01] LABS: ALT 40 U/L (14-59); AST 38 U/L (15-37); Albumin 3.2 g/dL (3.4-5.0); Alkaline Phosphatase 117 U/L (46-116); Anion Gap 14.4 mmol/L (3-11); BUN 67 mg/dL (7-18); Bilirubin, Total 0.7 mg/dL (0.2-1.0); CO2 25.6 mmol/L (21.0-32.0); CREATININE 3.2 mg/dL (0.55-1.02); Calcium 9.6 mg/dL (8.5-10.1); Chloride 94 mmol/L (98-107); Estimated GFR 14.55 (mL/min/1.73m2); Glucose 288 mg/dL (74-106); Magnesium 2.6 mg/dL (1.8-2.4); NT-proBNP 1392 pg/mL (<300); Potassium 5.3 mmol/L (3.5-5.1); Sodium 134 mmol/L (136-145); Total Protein 9.1 g/dL (6.4-8.2); Troponin I < 50 ng/L (<or=60)
--- NOTE | 2023-02-21 14:15 | RT.EKG_ITS ---
APPROVED REPORT Exam: Resting ECG Reason for Exam: sob Patient Location: E HR:144 bpm ECG Measurements Heart Rate 144 AXIS ME 116 P 78 QRSd 125 QRS -86 QT 289 T 44 QTc 448 Conclusion Sinus tachycardia...rate> 99 RBBB and LAFB...QRSd >120mS, axis(-40,240) ST elevation, consider inferior injury...ST >0.08mV, II III aVF. Sinus. No STEMI. I have reviewed and interpreted ECG and agree with software generated interpretation.
[2023-02-21 14:31] LABS: BE -1 mmol/L (-2-3); HCO3 26 mmol/L (22-26); pCO2 56 mmHg (35-45); pH 7.28 (7.35-7.45); pO2 77 mmHg (80-105); sO2 93 % (95-98); tCO2 24 mmol/L (23-27)
[2023-02-21 14:32] LABS: FIO2 55 %; Site Right Radial
[2023-02-21] MEDS: Normal Saline 500 ML IV (14:44)
[2023-02-21] MEDS: VANCOMYCIN/WATER (PEG) 2 GM/400 ML BAG IVPB (15:34)
[2023-02-21 15:36] LABS: Procalcitonin 2.5 ng/mL
[2023-02-21 15:46] LABS: COVID-19 PCR Negative (Negative); Influenza A PCR Negative (Negative); Influenza B PCR Negative (Negative); RSV PCR Negative (Negative)
[2023-02-21 15:49] LABS: Source Nasopharynx
[2023-02-21] MEDS: cefTRIAXone 2 GM/50 ML BAG IVPB (16:01)
--- NOTE | 2023-02-21 16:10 | NUR.NOTE ---
Nursing Note: Report given to Breezy JOYCE. Azithromycin dose given to MARIA DEL [facility]MEN team for enroute admin
--- NOTE | 2023-02-21 16:54 | NUR.NOTE ---
Nursing Note:Called [phone] ext [phone]. Report given to Edgardo BHAKTA in ICU at [place].
--- NOTE | 2023-02-21 17:07 | DI.RAD_ITS ---
Exam(s) XR PORTABLE CHEST AP POST LINE EXAM: XR PORTABLE CHEST AP POST LINE CLINICAL HISTORY: patient intubated. TECHNIQUE: 2D digital imaging was performed. COMPARISON: Compared to earlier same date. FINDINGS: Single AP portable view. Patient now intubated. Distal tip of endotracheal tube. Heart size is upper normal. The mediastinum is not widened. Increasing infiltrates noted in both lower lobes. No large pleural effusions. No pneumothorax. IMPRESSION: Worsening bilateral infiltrates in both lower lobes. Patient is intubated. DATA REPOSITORY: RADIATION DOSE DELIVERED:
--- NOTE | 2023-02-21 17:10 | DI.VRAD_ITS ---
Addendum created by Stefani Sharma MD on 02/21/2023 5:13:06 PM EDT: THIS REPORT CONTAINS FINDINGS THAT MAY BE CRITICAL TO PATIENT CARE. The findings were verbally communicated via telephone conference at 5:12 PM EDT on 02/21/2023 with dario mccollum. The findings were acknowledged and understood. Initial report created on 02/21/2023 5:09:58 PM EDT: PROCEDURE INFORMATION: Exam: XR Chest Exam date and time: 02/21/2023 4:31 PM Age: 77 years old Clinical indication: Study performed for possible retained surgical item in a patient currently under anesthesia. Surgical item - patient intubated. Device placement; Ett placement (vent status) TECHNIQUE: Imaging protocol: Radiologic exam of the chest. Views: 1 view. Total images: 1 COMPARISON: CR XR PORTABLE CHEST AP 02/21/2023 1:07 PM FINDINGS: Tubes, catheters and devices: Endotracheal tube terminates 4.3 cm proximal to the jerome. Lungs: Increasing patchy opacities in the mid to lower lung zones most consistent with worsening bilateral pneumonia. No pulmonary masses. Pulmonary vascularity is normal. Pleural spaces: No pleural effusion or pneumothorax. Heart/Mediastinum: Heart size is normal. Bones/joints: Degenerative change of the spine. IMPRESSION: 1. Endotracheal tube terminates 4.3 cm proximal to the jerome. 2. Increasing patchy opacities in the mid to lower lung zones most consistent with worsening bilateral pneumonia. Dictated and Authenticated by: Stefani Sharma MD. Ordering:CYNDEE Matthew MD
--- NOTE | 2023-02-21 17:25 | NUR.NOTE ---
Nursing Note: EKG and portable chest xray report after intubation was faxed to [facility] ICU 6. [phone] extension [phone] for ICU6 for ICU 6
== END 2023-02-21 17:25 | disposition short-term general hospital (02) ==
PROVIDERS: Emergency Provider Physician Assistant; PCP Nurse Practitioner
DX: J96.01 Acute respiratory failure with hypoxia (principal); J96.02 Acute respiratory failure with hypercapnia; J18.9 Pneumonia, unspecified organism; E87.20 Acidosis, unspecified; N17.9 Acute kidney failure, unspecified; I12.9 Hypertensive chronic kidney disease with stage 1 through stage 4 chronic kidney disease, or unspecified chronic kidney disease; E11.22 Type 2 diabetes mellitus with diabetic chronic kidney disease; N18.9 Chronic kidney disease, unspecified; R00.0 Tachycardia, unspecified; J44.9 Chronic obstructive pulmonary disease, unspecified; E66.01 Morbid (severe) obesity due to excess calories; E03.9 Hypothyroidism, unspecified; F17.210 Nicotine dependence, cigarettes, uncomplicated; Z86.711 Personal history of pulmonary embolism; Z20.822 Contact with and (suspected) exposure to COVID-19
CPT/HCPCS: 71045; 80053; 82805; 84145; 87040; 87637; 93005; 94640; 96365; 96367; 96368; 96375; 99285; 99291; 99292; 36600; 83605; 83735; 83880; 84484; 85025; 93010; J1940; J7614